=== PATIENT | male | born 1945 | race Caucasian/White ===

== ENCOUNTER → 2018-05-14 | Outpatient (CLI) | payer MEDICARE ==
[~2018-05-14] MED LIST: AML5T; AMLO10TA2 PO; ASP325T; CLN.2T PO; ENAL20TA PO; FRSM40T PO; HYDRALAZINE; IBP200T; INDO50CA PO; MTP100TCR PO; RT-ALBUINH IH
--- NOTE | 2018-05-14 09:44 | Diagnostic Imaging Report ---
INDICATION: Fall, rib pain. FINDINGS: There is no evidence for lung contusion, pneumothorax, or hemothorax. There is symmetrical hyperexpansion of the lungs with features of air trapping as a chronic finding. Multilevel bridging anterior osteophytes or syndesmophytes are chronic. The thoracic and visualized lumbar vertebral statures are stable. The alignment is within normal limits. The hilar and mediastinal contours are unremarkable. There are fractures without convincing evidence for healing involving at least the left sixth and seventh ribs laterally. There is no free air. IMPRESSION: Clear hyperexpanded lungs with underlying chronic COPD. Left-sided rib fractures involve at least the sixth and seventh levels; however, no findings of a hemothorax or pneumothorax and no free air beneath the diaphragms. A dedicated left rib series may be useful as further evaluation. Dictated by: Dictated on workstation # [id number]
--- NOTE | 2018-05-14 09:54 | Diagnostic Imaging Report ---
Indication: Fall and left knee pain. Time of exam: 9:41 AM 3 views of the left knee were obtained. Correlation is made with prior left knee radiographs from 04/07/2007. Since the prior study, the patient has had a revision of the hardware. There are changes of total knee arthroplasty. No definite fracture or loosening is identified. No effusion is identified. There is some prepatellar soft tissue swelling. Impression: Prepatellar soft tissue swelling. No acute fracture is detected. Dictated by: Dictated on workstation # [id number]
--- NOTE | 2018-05-14 10:14 | Diagnostic Imaging Report ---
Indication: Fall. Pain. Comparison: None. Findings: Three views of the left ribs are obtained. There are minimally displaced fractures of the posterior aspect of the left sixth and seventh ribs. There may be a subtle nondisplaced fracture of the posterior left eighth rib. No additional fracture or osseous destructive process is seen. There are degenerative changes in the spine. There is cephalad migration of left humeral head suggesting rotator cuff tear. Impression: 1. Posterior left seventh and eighth rib fractures with possible subtle left ninth rib fracture. 2. Findings suggestive of chronic left rotator cuff tear. Dictated by: Dictated on workstation # [id number]
== END ==
LOC: RAD 08:55
PROVIDERS: ATTEND Nurse Practitioner Family
DX: S22.42XA Multiple fractures of ribs, left side, initial encounter for closed fracture (principal); M79.89 Other specified soft tissue disorders; R06.00 Dyspnea, unspecified; R10.9 Unspecified abdominal pain; W19.XXXA Unspecified fall, initial encounter; Z87.09 Personal history of other diseases of the respiratory system; Z96.652 Presence of left artificial knee joint
CPT/HCPCS: 71046; 71100; 73562

== ENCOUNTER 2019-04-06 13:36 | Outpatient (RCR) | payer BC, MEDICARE ==
[2019-06-13] MEDS ORDERED: PRED10TA22 PO (11:17)
[2019-06-13] MEDS ORDERED: FLUT12AE4 IH (11:17)
[2019-06-13] MEDS ORDERED: HYDR-3820 PO (11:56)
[2019-06-13] MEDS ORDERED: RT-ALBUINH PO (11:56)
== END 2019-07-05 | disposition home or self-care (01) ==
LOC: CARD 13:36
PROVIDERS: ATTEND Internal Medicine Interventional Cardiology
DX: R55 Syncope and collapse (principal); I49.3 Ventricular premature depolarization; R42 Dizziness and giddiness

== ENCOUNTER → 2019-04-06 | Outpatient (CLI) | payer BC, MEDICARE ==
[~2019-04-06] MED LIST changes: -AMLO10TA2 PO; +AMLO10TA7 PO; -INDO50CA PO; +INDO50CA11 PO
== END ==
LOC: CARD 13:30
PROVIDERS: ATTEND Internal Medicine Interventional Cardiology
DX: R55 Syncope and collapse (principal); I49.3 Ventricular premature depolarization; R42 Dizziness and giddiness
CPT/HCPCS: 93306

== ENCOUNTER 2019-06-12 05:47 | Inpatient (IN) | payer MEDICARE ==
[~2019-06-12] VITALS: Ht 175.3 cm; Wt 96.6 kg
[2019-06-12] VITALS (7 sets, daily range): BP systolic 123–178; BP diastolic 70–101
[2019-06-12] MEDS ORDERED: NS IV 1000 ML 1,000 ML IV SCH ×2 (05:58→09:15)
[2019-06-12] MEDS ORDERED: CEFEPIME INJECTION 1,000 MG in WATER (STERILE) FOR INJECTION 10 ML IV ONE (06:00)
[2019-06-12] MEDS ORDERED: RT-ALBUTEROL SULF 2.5 MG/3 ML PRE-MIX VIAL INH STA (06:03)
[2019-06-12 06:08] LABS: BILIRUBIN,URINE NEGATIVE (NEGATIVE); CLARITY,URINE CLEAR; COLOR,URINE YELLOW; GLUCOSE, URINE (UA) NEGATIVE (NEGATIVE); KETONES,URINE 1+ (NEGATIVE); LEUKOCYTE ESTERASE ,URINE NEGATIVE (NEGATIVE); NITRITE,URINE NEGATIVE (NEGATIVE); PH,URINE 6.5 (5-9); PROTEIN,URINE 3+ (NEGATIVE); UROBILINOGEN,URINE NORMAL (NORMAL)
[2019-06-12 06:15] LABS: BACTERIA,URINE TRACE /HPF; SQUAMOUS EPITHELIAL CELL,UR 0-2 /HPF
[2019-06-12] MEDS ORDERED: methylPREDNISolone 125 MG (Solu-MEDROL) VIAL IVP ONE (06:15)
[2019-06-12] MEDS ORDERED: RT-IPRATROPIUM (ATROVENT) 0.5MG/2.5ML AMP IH ONE (06:15)
[2019-06-12 06:20] LABS: BASOPHILS # (AUTO) 0.1 10^3/uL (0.0-0.1); BASOPHILS % (AUTO) 0 % (0-10); EOSINOPHILS # (AUTO) 0.2 10^3/uL (0.0-0.3); EOSINOPHILS % (AUTO) 1 % (0-10); HEMATOCRIT 46 % (40-54); HEMOGLOBIN 15.1 G/DL (13.3-17.7); LYMPHOCYTES # (AUTO) 1.2 X 10^3 (1.0-4.0); LYMPHOCYTES % (AUTO) 10 % (12-44); MEAN CORPUSCULAR HEMOGLOBIN 33 PG (25-34); MEAN CORPUSCULAR HGB CONC 33 G/DL (32-36); MEAN CORPUSCULAR VOLUME 99 FL (80-99); MEAN PLATELET VOLUME 11.5 FL (7.4-10.4); MONOCYTES # (AUTO) 0.8 X 10^3 (0.0-1.0); MONOCYTES % (AUTO) 7 % (0-12); NEUTROPHILS # (AUTO) 10.2 X 10^3 (1.8-7.8); NEUTROPHILS % (AUTO) 82 % (42-75); PLATELET COUNT 218 10^3/uL (130-400); RED CELL DISTRIBUTION WIDTH 13.4 % (10.0-14.5); WHITE BLOOD COUNT 12.4 10^3/uL (4.3-11.0)
[2019-06-12 06:21] LABS: ABG BASE EXCESS -1.5 MMOL/L (-2.5-2.5); ABG OXYGEN SATURATION 97 % (94-100); ABG PCO2 36 MMHG (35-45); ABG PH 7.41 (7.37-7.43); ABG PO2 87 MMHG (79-93); ABG TCO2 23.4 MMOL/L (21.0-31.0)
[2019-06-12 06:23] LABS: ALLENS TEST YES-POS; INSPIRED O2 40%; VENTILATOR NO
[2019-06-12 06:24] LABS: PATIENT TEMP 99.3
[2019-06-12 06:34] LABS: PROTHROMBIN TIME PATIENT 13.6 SEC (12.2-14.7)
[2019-06-12 06:38] LABS: ALANINE AMINOTRANSFERASE 19 U/L (0-55); ALBUMIN 4.4 GM/DL (3.2-4.5); ALKALINE PHOSPHATASE 71 U/L (40-136); BILIRUBIN,TOTAL 0.6 MG/DL (0.1-1.0); BUN/CREATININE RATIO 14; CALCIUM 9.3 MG/DL (8.5-10.1); CARBON DIOXIDE 20 MMOL/L (21-32); CHLORIDE 105 MMOL/L (98-107); CREATININE SERUM 0.86 MG/DL (0.60-1.30); GFR ESTIMATED > 60; GLUCOSE 105 MG/DL (70-105); POTASSIUM 3.8 MMOL/L (3.6-5.0); SODIUM 140 MMOL/L (135-145); TOTAL PROTEIN 7.2 GM/DL (6.4-8.2)
--- OUTSIDE RECORDS SUMMARY | 2019-06-12 06:49 | XMS REPORT | Continuity of Care Document ---
Author Organization Unknown Address Unknown Allergies Active Description Code Type Severity Reaction Onset Reported/Identified Relationship to Patient Clinical Status Yes Sulfa (Sulfonamide Antibiotics) [id number] Drug Allergy Unknown N/A 07/11/2016 Medications There is no data. Problems Date Dx Coded Attending Type Code Diagnosis Diagnosed By 01/15/2012 Ot V43.65 01/15/2012 Ot V54.81 01/15/2012 Ot V57.1 08/24/2015 Ot 401.9 08/24/2015 Ot 496 08/24/2015 Ot 786.05 08/24/2015 Ot V58.61 08/24/2015 Ot V58.83 08/24/2015 Ot V43.65 08/24/2015 Ot V58.61 08/24/2015 Ot V58.83 08/24/2015 Ot V45.89 08/24/2015 Ot V58.61 08/24/2015 Ot V58.83 08/24/2015 Ot V43.65 08/24/2015 Ot V58.61 08/24/2015 Ot V58.83 09/17/2015 OSCAR KELLER [employer] Ot 278.00 09/17/2015 OSCAR KELLER [employer] Ot 401.9 09/17/2015 TRACY KELLERINE E [employer]PER Ot 496 09/17/2015 TRACY KELLERINE E [employer] Ot 780.54 09/17/2015 OSCAR KELLER E [employer] Ot 786.09 09/24/2015 TRACY KELLERINE E [employer] Ot 278.00 09/24/2015 OSCAR KELLER [employer] Ot 401.9 09/24/2015 OSCAR KELLER [employer] Ot 496 09/24/2015 OSCAR KELLER [employer] Ot 780.54 09/24/2015 OSCAR KELLER E [employer] Ot 786.09 10/31/2015 OSCAR KELLER [employer] Ot G47.10 HYPERSOMNIA, UNSPECIFIED 10/31/2015 OSCAR KELLER [employer] Ot I10 ESSENTIAL (PRIMARY) HYPERTENSION 10/31/2015 OSCAR KELLER [employer] Ot J44.9 CHRONIC OBSTRUCTIVE PULMONARY DISEASE, U 10/31/2015 OSCAR KELLER [employer] Ot R06.83 SNORING 07/09/2016 RUSTAM COSME DO Ot Z01.818 ENCOUNTER FOR OTHER PREPROCEDURAL EXAMIN 07/09/2016 COSMERUSTAM SANTANA DO Ot Z12.11 ENCOUNTER FOR SCREENING FOR MALIGNANT NE 07/10/2016 COSME DO RUSTAM D Ot Z01.818 ENCOUNTER FOR OTHER PREPROCEDURAL EXAMIN 07/10/2016 COSME DO RUSTAM D Ot Z12.11 ENCOUNTER FOR SCREENING FOR MALIGNANT NE 07/11/2016 RUSTAM COSME DO Ot K63.5 POLYP OF COLON 07/11/2016 COSME VAL SHINETT Ruth Ot Z12.11 ENCOUNTER FOR SCREENING FOR MALIGNANT NE 07/15/2016 COSME RUSTAM SHINE Ot Z01.818 ENCOUNTER FOR OTHER PREPROCEDURAL EXAMIN 07/15/2016 COSME VAL SHINETT Ruth Ot Z12.11 ENCOUNTER FOR SCREENING FOR MALIGNANT NE 07/16/2016 COSME VAL SHINETT Ruth Ot K63.5 POLYP OF COLON 07/16/2016 COSME VAL SHNIETT Ruth Ot Z12.11 ENCOUNTER FOR SCREENING FOR MALIGNANT NE 07/19/2016 COSME VAL SHINETT Ruth Ot K63.5 POLYP OF COLON 07/19/2016 COSME DO RUSTAM D Ot Z12.11 ENCOUNTER FOR SCREENING FOR MALIGNANT NE 05/14/2018 OSCAR KELLER [employer] Ot 278.00 OBESITY, NOS 05/14/2018 OSCAR KELLER [employer] Ot 401.9 HYPERTENSION NOS 05/14/2018 OSCAR KELLER [employer] Ot 496 CHR AIRWAY OBSTRUCT NEC 05/14/2018 OSCAR KELLER [employer] Ot 780.54 HYPERSOMNIA, UNSPECIFIED 05/14/2018 OSCAR KELLER [employer] Ot 786.09 RESPIRATORY ABNORM NEC 05/17/2018 JORI, BOBBY L W[employer]PER Ot M79.89 OTHER SPECIFIED SOFT TISSUE DISORDERS 05/17/2018 JORI, BOBBY L [employer] Ot R06.00 DYSPNEA, UNSPECIFIED 05/17/2018 JORI, BOBBY L [employer] Ot S22.42XA MULTIPLE FRACTURES OF RIBS, LEFT SIDE, I 05/17/2018 JORI, BOBBY L [employer] Ot W19.XXXA UNSPECIFIED FALL, INITIAL ENCOUNTER 05/17/2018 JORI, BOBBY L [employer] Ot Z87.09 PERSONAL HISTORY OF OTHER DISEASES OF TH 05/17/2018 JORI, BOBBY L [employer] Ot 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 LEFT ARTIFICIAL KNEE JOINT 05/17/2018 JORI, BOBBY L [employer] Ot M79.89 OTHER SPECIFIED SOFT TISSUE DISORDERS 05/17/2018 JORI, BOBBY L [employer] Ot R06.00 DYSPNEA, UNSPECIFIED 05/17/2018 JORI, BOBBY L [employer]PER Ot R10.9 UNSPECIFIED ABDOMINAL PAIN 05/17/2018 JORI, BOBBY L [employer] Ot S22.42XA MULTIPLE FRACTURES OF RIBS, LEFT SIDE, I 05/17/2018 JORI, BOBBY L [employer] Ot W19.XXXA UNSPECIFIED FALL, INITIAL ENCOUNTER 05/17/2018 JORI, BOBBY L [employer]PER Ot Z87.09 PERSONAL HISTORY OF OTHER DISEASES OF TH 05/17/2018 JORI, BOBBY L [employer] Ot 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 LEFT ARTIFICIAL KNEE JOINT 06/07/2018 JORI, BOBBY L [employer]PER Ot M79.89 OTHER SPECIFIED SOFT TISSUE DISORDERS 06/07/2018 JORI, BOBBY L [employer]PER Ot R06.00 DYSPNEA, UNSPECIFIED 06/07/2018 JORI, BOBBY L W[employer] AND [employer]PER Ot R10.9 UNSPECIFIED ABDOMINAL PAIN 06/07/2018 JORI, BOBBY L W[employer]E AND [employer]PER Ot S22.42XA MULTIPLE FRACTURES OF RIBS, LEFT SIDE, I 06/07/2018 JORI, BOBBY L [employer]PER Ot W19.XXXA UNSPECIFIED FALL, INITIAL ENCOUNTER 06/07/2018 JORI, BOBBY L W[employer]PER Ot Z87.09 PERSONAL HISTORY OF OTHER DISEASES OF TH 06/07/2018 JORI, BOBBY L W[employer] AND [employer]PER Ot 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 LEFT ARTIFICIAL KNEE JOINT 03/30/2019 OSCAR KELLER W[employer] Ot 278.00 OBESITY, NOS 03/30/2019 OSCAR KELLER [employer] Ot 401.9 HYPERTENSION NOS 03/30/2019 OSCAR KELLER [employer] Ot 496 CHR AIRWAY OBSTRUCT NEC 03/30/2019 OSCAR KELLER [employer] Ot 780.54 HYPERSOMNIA, UNSPECIFIED 03/30/2019 OSCAR KELLER [employer] Ot 786.09 RESPIRATORY ABNORM NEC 03/30/2019 JORI, BOBBY L [employer] Ot M79.89 OTHER SPECIFIED SOFT TISSUE DISORDERS 03/30/2019 JORI, BOBBY L [employer] Ot R06.00 DYSPNEA, UNSPECIFIED 03/30/2019 JORI, BOBBY L [employer] Ot R10.9 UNSPECIFIED ABDOMINAL PAIN 03/30/2019 JORI, BOBBY L [employer]PER Ot S22.42XA MULTIPLE FRACTURES OF RIBS, LEFT SIDE, I 03/30/2019 JORI, BOBBY L [employer] Ot W19.XXXA UNSPECIFIED FALL, INITIAL ENCOUNTER 03/30/2019 JORI, BOBBY L [employer]PER Ot Z87.09 PERSONAL HISTORY OF OTHER DISEASES OF TH 03/30/2019 JORI, BOBBY L W[employer]PER Ot 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 LEFT ARTIFICIAL KNEE JOINT 03/30/2019 OSCAR KELLER [employer] Ot 278.00 OBESITY, NOS 03/30/2019 OSCAR KELLER [employer] Ot 401.9 HYPERTENSION NOS 03/30/2019 OSCAR KELLER [employer] Ot 496 CHR AIRWAY OBSTRUCT NEC 03/30/2019 OSCAR KELLER [employer] Ot 780.54 HYPERSOMNIA, UNSPECIFIED 03/30/2019 OSCAR KELLER [employer] Ot 786.09 RESPIRATORY ABNORM NEC 03/30/2019 JORI, BOBBY L [employer] Ot M79.89 OTHER SPECIFIED SOFT TISSUE DISORDERS 03/30/2019 JORI, BOBBY L W[employer] Ot R06.00 DYSPNEA, UNSPECIFIED 03/30/2019 JORI, BOBBY L [employer]PER Ot R10.9 UNSPECIFIED ABDOMINAL PAIN 03/30/2019 JORI, BOBBY L [employer] Ot S22.42XA MULTIPLE FRACTURES OF RIBS, LEFT SIDE, I 03/30/2019 JORI, BOBBY L [employer] Ot W19.XXXA UNSPECIFIED FALL, INITIAL ENCOUNTER 03/30/2019 JORI, BOBBY L [employer] Ot Z87.09 PERSONAL HISTORY OF OTHER DISEASES OF TH 03/30/2019 JORI, BOBBY L W[employer] AND [employer]PER Ot 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 LEFT ARTIFICIAL KNEE JOINT 03/30/2019 TRACY KELLERINE E [employer]PER Ot 278.00 OBESITY, NOS 03/30/2019 OSCAR KELLER [employer] Ot 401.9 HYPERTENSION NOS 03/30/2019 TRACY KELLERINE E [employer]PER Ot 496 CHR AIRWAY OBSTRUCT NEC 03/30/2019 OSCAR KELLER [employer] Ot 780.54 HYPERSOMNIA, UNSPECIFIED 03/30/2019 TRACY KELLERINE Leno WASTE [employer]PER Ot 786.09 RESPIRATORY ABNORM NEC 03/30/2019 JORI, BOBBY L [employer] Ot M79.89 OTHER SPECIFIED SOFT TISSUE DISORDERS 03/30/2019 JORI, BOBBY L W[employer] Ot R06.00 DYSPNEA, UNSPECIFIED 03/30/2019 JORI, BOBBY L [employer]PER Ot R10.9 UNSPECIFIED ABDOMINAL PAIN 03/30/2019 JORI, BOBBY L [employer] Ot S22.42XA MULTIPLE FRACTURES OF RIBS, LEFT SIDE, I 03/30/2019 JORI, BOBBY L [employer]PER Ot W19.XXXA UNSPECIFIED FALL, INITIAL ENCOUNTER 03/30/2019 JORI, BOBBY L [employer] Ot Z87.09 PERSONAL HISTORY OF OTHER DISEASES OF 03/30/2019 JORI, BOBBY L W[employer] AND [employer] CH[employer]PER Ot 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 LEFT ARTIFICIAL KNEE JOINT 03/30/2019 OSCAR KELELR WASTE AND B[employer]ING W[employer] CHOPPER Ot 278.00 OBESITY, NOS 03/30/2019 OSCAR KELLER [employer] Ot 401.9 HYPERTENSION NOS 03/30/2019 OSCAR KELLER [employer] Ot 496 CHR AIRWAY OBSTRUCT NEC 03/30/2019 OSCAR KELLER W[employer] Ot 780.54 HYPERSOMNIA, UNSPECIFIED 03/30/2019 OSCAR KELLER [employer] Ot 786.09 RESPIRATORY ABNORM NEC 03/30/2019 JROI, BOBBY L W[employer]PER Ot M79.89 OTHER SPECIFIED SOFT TISSUE DISORDERS 03/30/2019 JORI, BOBBY L [employer]PER Ot R06.00 DYSPNEA, UNSPECIFIED 03/30/2019 JORI, BOBBY L [employer]PER Ot R10.9 UNSPECIFIED ABDOMINAL PAIN 03/30/2019 JORI, BOBBY L W[employer]PER Ot S22.42XA MULTIPLE FRACTURES OF RIBS, LEFT SIDE, I 03/30/2019 JORI, BOBBY L [employer]PER Ot W19.XXXA UNSPECIFIED FALL, INITIAL ENCOUNTER 03/30/2019 JORI, BOBBY L W[employer]PER Ot Z87.09 PERSONAL HISTORY OF OTHER DISEASES OF 03/30/2019 JORI, BOBBY L WASTE AND [employer] CH[employer]PER Ot 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 LEFT ARTIFICIAL KNEE JOINT 04/06/2019 OSCAR KELLER E [employer] Ot 278.00 OBESITY, NOS 04/06/2019 TRACY KELLERINE E [employer]PER Ot 401.9 HYPERTENSION NOS 04/06/2019 TRACY KELLERINE E [employer]PER Ot 496 CHR AIRWAY OBSTRUCT NEC 04/06/2019 TRACY KELLERINE E [employer]PER Ot 780.54 HYPERSOMNIA, UNSPECIFIED 04/06/2019 TRACY KELLERINE E [employer]PER Ot 786.09 RESPIRATORY ABNORM NEC 04/06/2019 JORI, BOBBY L W[employer]PER Ot M79.89 OTHER SPECIFIED SOFT TISSUE DISORDERS 04/06/2019 JORI, BOBBY L W[employer]PER Ot R06.00 DYSPNEA, UNSPECIFIED 04/06/2019 JORI, BOBBY L W[employer]PER Ot R10.9 UNSPECIFIED ABDOMINAL PAIN 04/06/2019 JORI, BOBBY L W[employer]PER Ot S22.42XA MULTIPLE FRACTURES OF RIBS, LEFT SIDE, I 04/06/2019 JORI, BOBBY L W[employer]PER Ot W19.XXXA UNSPECIFIED FALL, INITIAL ENCOUNTER 04/06/2019 JORI, BOBBY L W[employer]PER Ot Z87.09 PERSONAL HISTORY OF OTHER DISEASES OF 04/06/2019 JORI, BOBBY L WASTE AND [employer] CH[employer]PER Ot 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 LEFT ARTIFICIAL KNEE JOINT 04/06/2019 TRACY KELLERINE E [employer]PER Ot 278.00 OBESITY, NOS 04/06/2019 TRACY KELLERINE E [employer]PER Ot 401.9 HYPERTENSION NOS 04/06/2019 TRACY KELLERINE E [employer]PER Ot 496 CHR AIRWAY OBSTRUCT NEC 04/06/2019 TRACY KELLERINE E [employer]PER Ot 780.54 HYPERSOMNIA, UNSPECIFIED 04/06/2019 TRACY KELLERINE E [employer]PER Ot 786.09 RESPIRATORY ABNORM NEC 04/06/2019 JORI, BOBBY L W[employer]PER Ot M79.89 OTHER SPECIFIED SOFT TISSUE DISORDERS 04/06/2019 JORI, BOBBY L W[employer]PER Ot R06.00 DYSPNEA, UNSPECIFIED 04/06/2019 JORI, BOBBY L [employer]PER Ot R10.9 UNSPECIFIED ABDOMINAL PAIN 04/06/2019 JORI, BOBBY L [employer]PER Ot S22.42XA MULTIPLE FRACTURES OF RIBS, LEFT SIDE, I 04/06/2019 BOBBY HSIEH APRN Ot W19.XXXA UNSPECIFIED FALL, INITIAL ENCOUNTER 04/06/2019 BOBBY HSIEH APRN Ot Z87.09 PERSONAL HISTORY OF OTHER DISEASES OF TH 04/06/2019 BOBBY HSIEH APRN Ot 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 LEFT ARTIFICIAL KNEE JOINT 04/08/2019 Marta HERNANDEZ MD, Ot I49.3 VENTRICULAR PREMATURE DEPOLARIZATION 04/08/2019 Marta HERNANDEZ MD, Ot R42 DIZZINESS AND GIDDINESS 04/08/2019 Marta HERNANDEZ MD, Ot R55 SYNCOPE AND COLLAPSE 04/28/2019 Marta HERNANDEZ MD, Ot I49.3 VENTRICULAR PREMATURE DEPOLARIZATION 04/28/2019 Marta HERNANDEZ MD, Ot R42 DIZZINESS AND GIDDINESS 04/28/2019 Marta HERNANDEZ MD, Ot R55 SYNCOPE AND COLLAPSE Procedures There is no data. Results Test Result Range Complete urinalysis with reflex to culture - 06/12/19 06:00 Urine color determination YELLOW NRG Urine clarity determination CLEAR NRG Urine pH measurement by test strip 6.5 5-9 Specific gravity of urine by test strip 1.015 1.016-1.022 Urine protein assay by test strip, semi-quantitative 3+ NEGATIVE Urine glucose detection by automated test strip NEGATIVE NEGATIVE Erythrocytes detection in urine sediment by light microscopy 1+ NEGATIVE Urine ketones detection by automated test strip 1+ NEGATIVE Urine nitrite detection by test strip NEGATIVE NEGATIVE Urine total bilirubin detection by test strip NEGATIVE NEGATIVE Urine urobilinogen measurement by automated test strip (mass/volume) NORMAL NORMAL Urine leukocyte esterase detection by dipstick NEGATIVE NEGATIVE Automated urine sediment erythrocyte count by microscopy (number/high power field) NONE NRG Automated urine sediment leukocyte count by microscopy (number/high power field) NONE NRG Bacteria detection in urine sediment by light microscopy TRACE NRG Squamous epithelial cells detection in urine sediment by light microscopy 0-2 NRG Crystals detection in urine sediment by light microscopy NONE NRG Casts detection in urine sediment by light microscopy NONE NRG Mucus detection in urine sediment by light microscopy SMALL NRG Complete urinalysis with reflex to culture CULTURE PENDING NRG Complete blood count (CBC) with automated white blood cell (WBC) differential - 06/12/19 06:04 Blood leukocytes automated count (number/volume) 12.4 10*3/uL 4.3-11.0 Blood erythrocytes automated count (number/volume) 4.62 10*6/uL 4.35-5.85 Venous blood hemoglobin measurement (mass/volume) 15.1 g/dL 13.3-17.7 Blood hematocrit (volume fraction) 46 % 40-54 Automated erythrocyte mean corpuscular volume 99 [foz_us] 80-99 Automated erythrocyte mean corpuscular hemoglobin (mass per erythrocyte) 33 pg 25-34 Automated erythrocyte mean corpuscular hemoglobin concentration measurement (mass/volume) 33 g/dL 32-36 Automated erythrocyte distribution width ratio 13.4 % 10.0- 14.5 Automated blood platelet count (count/volume) 218 10*3/uL 130-400 Automated blood platelet mean volume measurement 11.5 [foz_us] 7.4-10.4 Automated blood neutrophils/100 leukocytes 82 % 42-75 Automated blood lymphocytes/100 leukocytes 10 % 12-44 Blood monocytes/100 leukocytes 7 % 0-12 Automated blood eosinophils/100 leukocytes 1 % 0-10 Automated blood basophils/100 leukocytes 0 % 0-10 Blood neutrophils automated count (number/volume) 10.2 10*3 1.8-7.8 Blood lymphocytes automated count (number/volume) 1.2 10*3 1.0-4.0 Blood monocytes automated count (number/volume) 0.8 10*3 0.0- 1.0 Automated eosinophil count 0.2 10*3/uL 0.0-0.3 Automated blood basophil count (count/volume) 0.1 10*3/uL 0.0-0.1 Arterial blood gas measurement - 06/12/19 06:08 Blood pCO2 36 mm[Hg] 35-45 Blood pO2 87 mm[Hg] 79-93 Arterial blood bicarbonate measurement (moles/volume) 22 mmol/L 23-27 Arterial blood base excess by calculation -1.5 mmol/L -2.5-2.5 Arterial blood oxygen saturation measurement 97 % 94-100 * Inhaled oxygen flow rate 40% NRG Arterial blood pH measurement with patient temperature correction 7.41 7.37-7.43 Arterial blood carbon dioxide, total measurement (moles/volume) 23.4 mmol/L 21.0-31.0 Body site LEFT RADIAL NRG Assessment of wrist artery patency prior to arterial puncture YES-POS NRG Setting of ventilation mode NO NRG Measurement of body temperature 99.3 NRG Encounters ACCT No. Visit Date/Time Discharge Status Pt. Type Provider Facility Loc./Unit Complaint [id number] 04/06/2019 13:36:00 04/06/2019 23:59:59 CLS Outpatient Marta HERNANDEZ MD [facility] CARD DIZZINESS [id number] 04/06/2019 13:30:00 04/06/2019 23:59:59 CLS Outpatient Marta HERNANDEZ MD [facility] CARD DIZZINESS [id number] 03/30/2019 10:34:00 03/30/2019 23:59:59 CLS Preadmit Marta HERNANDEZ MD [facility] CARD DIZZINESS,NEAR SYNCOPE [id number] 05/14/2018 08:55:00 05/14/2018 23:59:59 CLS Outpatient BOBBY HSIEH [employer] [facility] RAD R06.00 [id number] 07/11/2016 09:21:00 07/11/2016 13:40:00 DIS Outpatient RSUTAM COSME DO [facility] SDC SCREENING [id number] 07/09/2016 05:44:00 07/09/2016 11:21:00 DIS Outpatient RUSTAM COSME DO [facility] PREOP SCREENING [id number] 10/31/2015 11:16:00 10/31/2015 11:37:00 DIS Outpatient OSCAR KELLER APRN [facility] SLEEP SNORING, CHOKING IN SLEEP, EDS, HPN [id number] 08/24/2015 12:48:00 08/24/2015 23:59:59 CLS Outpatient OSCAR KELLER APRN [facility] RT COPD [id number] 06/12/2019 06:16:00 Document Registration [id number] 08/24/2015 12:47:00 Document Registration [id number] 08/24/2015 12:47:00 Document Registration [id number] 08/24/2015 12:47:00 Document Registration [id number] 10/30/2011 12:45:00 Document Registration [id number] 10/27/2011 13:30:00 Document Registration [id number] 05/15/2011 12:43:00 Document Registration [id number] 04/17/2011 15:28:00 Document Registration
--- NOTE | 2019-06-12 06:59 | NUR ---
REPORT GIVEN TO MICHELLE LOPEZ
[2019-06-12] MEDS ORDERED: FUROSEMIDE 40 MG/4 ML INJ (LASIX) IVP ONE (07:30)
--- NOTE | 2019-06-12 07:36 | ED Respiratory ---
General Chief Complaint: Respiratory Problems Stated Complaint: COPD EXACERBATION Nursing Triage Note: PT ARRIVES VIA EMS, STATES HE WAS AWOKEN FROM SLEEP BY WHAT HE FEELS LIKE IS AN EXACERBATION OF HIS COPD, SIMILAR TO EPISODES IN THE PAST. Source: patient Exam Limitations: no limitations History of Present Illness Date Seen by Provider: Jun 12, 2019 Time Seen by Provider: 07:31 Initial Comments This 73-year-old white male presents with exacerbation of COPD. The patient has had similar episodes in the past. The patient awoke from sleep with severe shortness of breath. Patient denies associated fever, chills, productive cough, chest pain, palpitations, nausea, vomiting, abdominal pain, significant change in his peripheral edema, or change in his medication. Upon arrival patient was found in respiratory failure and was placed on BiPAP with improvement in his breathing. The patient was given 125 mg I'm and will IV. I assumed care of Mr. Sims from Dr. Swift when I arrived for my shift this morning at 6 a.m. Allergies and Home Medications Allergies Coded Allergies: Sulfa (Sulfonamide Antibiotics) (Verified Allergy, Unknown, 06/12/19) Home Medications Albuterol Sulfate 8.5 Gm Hfa.aer.ad, 1-2 PUFF IH Q4H PRN for WHEEZING, (Reported) Amlodipine Besylate 10 Mg Tablet, 10 MG PO DAILY, (Reported) Clonidine Hcl 0.2 Mg Tablet, 0.2 MG PO Q8H, (Reported) Enalapril Maleate 20 Mg Tablet, 20 MG PO DAILY, (Reported) Furosemide 40 Mg Tablet, 40 MG PO DAILY, (Reported) Indomethacin 50 Mg Capsule, 50 MG PO DAILY PRN for PAIN, (Reported) Metoprolol Succinate 100 Mg Tab.sr.24h, 100 MG PO BID, (Reported) Patient Home Medication List Home Medication List Reviewed: Yes Review of Systems Review of Systems Constitutional: No chills, No fever EENTM: no symptoms reported Respiratory: see HPI, cough, dyspnea on exertion, short of breath Cardiovascular: chest pain Gastrointestinal: No abdominal pain, No nausea, No vomiting Genitourinary: no symptoms reported Musculoskeletal: no symptoms reported Skin: no symptoms reported Psychiatric/Neurological: No Symptoms Reported Hematologic/Lymphatic: No Symptoms Reported Immunological/Allergic: no symptoms reported Past Doxtyns-Bhzhti-Yczfoi Hx Past Med/Social Hx: Reviewed Nursing Past Med/Soc Hx Patient Social History Alcohol Use: Denies Use Recreational Drug Use: No Smoking Status: Former Smoker Type Used: Cigarettes Former Smoker, Quit: Jun 01, 2013 Recent Foreign Travel: No Contact w/Someone Who Travel: No Recent Infectious Disease Expo: No Recent Hopitalizations: Yes (OVER 10 YRS.AGO-PNEUMONIA) Immunizations Up To Date Tetanus Booster (TDap): Unknown PED Vaccines UTD: Yes Date of Pneumonia Vaccine: Sep 14, 2014 Past Medical History Surgeries: Yes (left knee replaced x2, right TKR, shoulder sx) Respiratory: Yes (COPD) Cardiac: No Neurological: No Reproductive Disorders: No Gastrointestinal: No Musculoskeletal: Yes Endocrine: No Psychosocial: No Blood Disorders: No Physical Exam Vital Signs - First Documented 06/12/19 05:47 Temp 99.3 Pulse 90 Resp 34 B/P (MAP) 177/101 (126) Pulse Ox 96 O2 Delivery NIV CPAP O2 Flow Rate 10.00 Capillary Refill : Greater Than 3 Seconds Height: 5'9.00" Weight: 228lbs. 0.0oz. 103.888885qy; 34.4 BMI Method:Stated General Appearance: WD/WN, moderate distress (on presentation the emergency de partment. BiPAP was initiated for the patient.) Eyes: Bilateral Eye Normal Inspection HEENT: normal ENT inspection Neck: full range of motion, supple Respiratory: decreased breath sounds Cardiovascular: normal peripheral pulses, regular rate, rhythm, no murmur Gastrointestinal: normal bowel sounds, non tender, soft Extremities: normal range of motion, non-tender, normal inspection Neurologic/Psychiatric: no motor/sensory deficits, alert Skin: normal color Focused Exam Lactate Level 06/12/19 06:04: Lactic Acid Level 1.88 Lactic Acid Level Laboratory Tests Test 06/12/19 06:04 Lactic Acid Level 1.88 MMOL/L (0.50-2.00) Progress/Results/Core Measures Suspected Sepsis Recent Fever Within 48 Hours: No Infection Criteria Present: Suspected New Infection New/Unexplained Altered Menta: No Sepsis Screen: No Definite Risk SIRS Temperature:99.3 Pulse: 66 Respiratory Rate: 15 Laboratory Tests 06/12/19 06:04: White Blood Count 12.4H Blood Pressure 157 /89 Mean: 126 06/12/19 06:04: Lactic Acid Level 1.88 Laboratory Tests 06/12/19 06:04: Creatinine 0.86, INR Comment 1.0, Platelet Count 218, Total Bilirubin 0.6 Results/Orders Lab Results Laboratory Tests Test 06/12/19 06:00 06/12/19 06:04 06/12/19 06:08 Range/Units Urine Color YELLOW Urine Clarity CLEAR Urine pH 6.5 5-9 Urine Specific [place] 1.015 L 1.016-1.022 Urine Protein 3+ H NEGATIVE Urine Glucose (UA) NEGATIVE NEGATIVE Urine Ketones 1+ H NEGATIVE Urine Nitrite NEGATIVE NEGATIVE Urine Bilirubin NEGATIVE NEGATIVE Urine Urobilinogen NORMAL NORMAL MG/DL Urine Leukocyte Esterase NEGATIVE NEGATIVE Urine RBC (Auto) 1+ H NEGATIVE Urine RBC NONE /HPF Urine WBC NONE /HPF Urine Squamous Epithelial Cells 0-2 /HPF Urine Crystals NONE /LPF Urine Bacteria TRACE /HPF Urine Casts NONE /LPF Urine Mucus SMALL H /LPF Urine Culture Indicated CULTURE PENDING White Blood Count 12.4 H 4.3-11.0 10^3/uL Red Blood Count 4.62 4.35-5.85 10^6/uL Hemoglobin 15.1 13.3-17.7 G/DL Hematocrit 46 40-54 % Mean Corpuscular Volume 99 80-99 FL Mean Corpuscular Hemoglobin 33 25-34 PG Mean Corpuscular Hemoglobin Concent 33 32-36 G/DL Red Cell Distribution Width 13.4 10.0-14.5 % Platelet Count 218 130-400 10^3/uL Mean Platelet Volume 11.5 H 7.4-10.4 FL Neutrophils (%) (Auto) 82 H 42-75 % Lymphocytes (%) (Auto) 10 L 12-44 % Monocytes (%) (Auto) 7 0-12 % Eosinophils (%) (Auto) 1 0-10 % Basophils (%) (Auto) 0 0-10 % Neutrophils # (Auto) 10.2 H 1.8-7.8 X 10^3 Lymphocytes # (Auto) 1.2 1.0-4.0 X 10^3 Monocytes # (Auto) 0.8 0.0-1.0 X 10^3 Eosinophils # (Auto) 0.2 0.0-0.3 10^3/uL Basophils # (Auto) 0.1 0.0-0.1 10^3/uL Prothrombin Time 13.6 12.2-14.7 SEC INR Comment 1.0 0.8-1.4 Activated Partial Thromboplast Time 29 24-35 SEC Sodium Level 140 135-145 MMOL/L Potassium Level 3.8 3.6-5.0 MMOL/L Chloride Level 105 98-107 MMOL/L Carbon Dioxide Level 20 L 21-32 MMOL/L Anion Gap 15 H 5-14 MMOL/L Blood Urea Nitrogen 12 7-18 MG/DL Creatinine 0.86 0.60-1.30 MG/DL Estimat Glomerular Filtration Rate > 60 BUN/Creatinine Ratio 14 Glucose Level 105 70-105 MG/DL Lactic Acid Level 1.88 0.50-2.00 MMOL/L Calcium Level 9.3 8.5-10.1 MG/DL Corrected Calcium 9.0 8.5-10.1 MG/DL Total Bilirubin 0.6 0.1-1.0 MG/DL Aspartate Amino Transf (AST/SGOT) 19 5-34 U/L Alanine Aminotransferase (ALT/SGPT) 19 0-55 U/L Alkaline Phosphatase 71 40-136 U/L Troponin I < 0.028 <0.028 NG/ML Total Protein 7.2 6.4-8.2 GM/DL Albumin 4.4 3.2-4.5 GM/DL Blood Gas Puncture Site LEFT RADIAL Blood Gas Patient Temperature 99.3 Arterial Blood pH 7.41 7.37-7.43 Arterial Blood Partial Pressure CO2 36 35-45 MMHG Arterial Blood Partial Pressure O2 87 79-93 MMHG Arterial Blood HCO3 22 L 23-27 MMOL/L Arterial Blood Total CO2 23.4 21.0-31.0 MMOL/L Arterial Blood Oxygen Saturation 97 94-100 % Arterial Blood Base Excess -1.5 -2.5-2.5 MMOL/L Sanju Test YES-POS Blood Gas Ventilator Setting NO Blood Gas Inspired Oxygen 40% My Orders Orders - JAMIE MAHMOOD MD Furosemide Injection (Lasix Injection) (06/12/19 07:30) Medications Given in ED Current Medications Medications Dose Ordered Sig/Christi Route Start Time Stop Time Status Last Admin Dose Admin Cefepime HCl 1000 mg/Sterile Water 10 ml @ 200 mls/hr ONCE ONCE IV 06/12/19 06:00 06/12/19 06:02 DC 06/12/19 06:49 200 MLS/HR Ipratropium [place] 0.5 mg ONCE ONCE IH 06/12/19 06:15 06/12/19 06:16 DC 06/12/19 06:15 0.5 MG Methylprednisolone Sodium Succinate 125 mg ONCE ONCE IVP 06/12/19 06:15 06/12/19 06:16 DC 06/12/19 06:51 125 MG Vital Signs/I&O 06/12/19 06/12/19 06/12/19 05:47 05:47 06:16 Temp 99.3 Pulse 90 66 Resp 34 15 B/P (MAP) 177/101 (126) Pulse Ox 96 94 98 O2 Delivery NIV CPAP NIV/CPAP O2 Flow Rate 10.00 10.00 40.00 Capillary Refill : Greater Than 3 Seconds Blood Pressure Mean: 126 Progress Note : Time: 07:35 Progress Note With the Solu-Medrol and BiPAP the patient progressively improved in the emergency department. Patient's chest x-ray demonstrated apparent vascular redistribution and I gave the patient 40 mg Lasix IV. Telephone consultation was undertaken with Dr. Wilkins and Dr. Ochoa who were respectively kind enough to admit the patient and consult on the patient's respiratory failure. Departure Communication (Admissions) Time/Spoke to Admitting Phy: 07:36 Dr. Wilkins Time/Spoke to Consulting Phy: 07:36 Dr. Ochoa Impression Primary Impression: Respiratory failure Qualified Codes: J96.00 - Acute respiratory failure, unspecified whether with hypoxia or hypercapnia Disposition: ADMITTED INPATIENT Condition: Improved Admissions Decision to Admit Reason: Admit from ER (General) Decision to Admit/Date: Jun 12, 2019 Time/Decision to Admit Time: 07:37 Departure-Patient Inst. Referrals: ISAI AVILA MD (PCP/Family) Primary Care Physician JAMIE MAHMOOD MD Jun 12, 2019 07:36
--- NOTE | 2019-06-12 07:38 | Diagnostic Imaging Report ---
INDICATION: Shortness of air. TECHNIQUE: Single view chest at 7:08 AM. CORRELATION STUDY: 05/14/2018 FINDINGS: Heart size is enlarged. Vasculature is increased from prior study. Scattered pulmonary parenchymal densities in the mid and lower lung mike could reflect superimposed edema versus infiltrate. Prominent interstitial markings may reflect mild edema. There is some fullness of bilateral hilar structures. Very questionable density in the lateral right mid lung field. Likely old left/right rib fracture deformities. IMPRESSION: 1. Cardiac enlargement with a component vascular congestion is present. Superimposed areas of edema versus infiltrate and perihilar and basilar regions. 2. Very questionable density in the right mid lung field. Would recommend short-term followup two-view chest imaging for reassessment. Dictated by: Dictated on workstation # [id number]
--- NOTE | 2019-06-12 07:54 | NUR ---
Patient states he is on oxygen at home at 2 LPM. He wears oxygen continuosly. He states he is feeling better after being on Bipap machine in the ER. Patient voided 175 ML of urine after Lasix in ER.
--- NOTE | 2019-06-12 07:57 | NUR ---
Patient transported to floor with IV NS fluids infusing at 50 ML/HR.
--- NOTE | 2019-06-12 07:59 | NUR ---
RT notified and will be assisting with transporting patient to floor due to patient being on bipap.
--- NOTE | 2019-06-12 08:00 | NUR ---
Patient voided 200 ML clear yellow urine in urinal.
--- NOTE | 2019-06-12 08:15 | NUR ---
VALDO KRUGER admitted to room 417-1, with an admitting diagnosis of respiratory distress, on 06/12/19 from ED via cart, accompanied by staff.VALDO KRUGER introduced to surroundings, call light, bed controls, phone, TV, temperature control, lights, meal times, smoking policy, visitor policy, side rail policy, bathrooms and showers. VALDO KRUGER verbalizes understanding that [facility] is not responsible for the loss or damage to any personal effects or valuables that are kept in the patients posession during their hospitalization. The following Patient Care Plans were discussed with the patient: Discharge Planning, pain, and respiratory distress. VALDO KRUGER verbalizes understanding of Interdisciplinary Patient Education. Patient and/or family were informed about the Rapid Response Team and its purpose.
--- NOTE | 2019-06-12 11:56 | History & Physical-Hospitalist ---
History of Present Illness HPI/Chief Complaint this is a 73-year-old white male who lives by himself. He has a history of COPD. He notes that he has had 3 occasions where he begins getting suddenly short of breath associated with diaphoresis and inability to catch his breath. These have especially happened in the middle of the night where he is awakened suddenly having to sit up to breathe. He will increase his oxygen that he wears at night sometimes and start using back to back breathing treatments. This is associated with chest discomfort when he uses too much of the albuterol shakiness and diaphoresis. Last night it was so severe that he called the a [facility] where he was found to be in acute respiratory distress with chest x-ray that showed increased vascular redistribution. He has a history of paroxysmal atrial fibrillation and is seeing Dr. Molina in the past. at the time of my interview this morning he is feeling much much better has diuresed more than a liter of fluids and asks to get off his BiPAP. Source: patient Exam Limitations: no limitations Date Seen 06/12/19 Time Seen by a Provider: 11:15 Attending Physician Kaylegih Wilkins MD PCP Isai Verduzco MD Referring Physician Date of Admission Jun 12, 2019 at 07:30 Home Medications & Allergies Home Medications Reviewed patient Home Medication Reconciliation performed by pharmacy medication reconciliations veterinary assistant technician and/or nursing. Patients Allergies have been reviewed. Allergies Allergies Coded Allergies Sulfa (Sulfonamide Antibiotics) (Verified Allergy, Unknown, 06/12/19) Past Uymcebu-Vxfakx-Iysubq Hx Past Med/Social Hx: Reviewed Nursing Past Med/Soc Hx Patient Social History Marrital Status: single Employed/Student: retired Alcohol Use: Denies Use Recreational Drug Use: No Smoking Status: Former Smoker Former Smoker, Quit: Jun 01, 2013 Type Used: Cigarettes Physical Abuse Screen: No Sexual Abuse: No Recent Foreign Travel: No Contact w/other who traveled: No Recent Hopitalizations: No Recent Infectious Disease Expo: No Immunizations Up To Date Tetanus Booster (TDap): Unknown Pediatric: Yes Date of Pneumonia Vaccine: Sep 14, 2014 Seasonal Allergies Seasonal Allergies: No Past Medical History Respiratory: COPD Cardiac: Atrial Fibrillation, Hypertension, Palpitations Reproductive: No Musculoskeletal: Arthritis History of Blood Disorders: No Family History Asbestosis FH: breast cancer Review of Systems Constitutional: see HPI EENTM: no symptoms reported Respiratory: orthopnea, short of breath Cardiovascular: palpitations Gastrointestinal: no symptoms reported Genitourinary: no symptoms reported Musculoskeletal: no symptoms reported Skin: no symptoms reported Psychiatric/Neurological: No Symptoms Reported Physical Exam Physical Exam Vital Signs Vital Signs - First Documented 06/12/19 05:47 Temp 99.3 Pulse 90 Resp 34 B/P (MAP) 177/101 (126) Pulse Ox 96 O2 Delivery NIV CPAP O2 Flow Rate 10.00 Capillary Refill : Greater Than 3 Seconds Height, Weight, BMI Height: 5'9.00" Weight: 211lbs. 8.0oz. 95.372232wq; 33.7 BMI Method:Stated General Appearance: No Apparent Distress, WD/WN Eyes: Bilateral Eye Normal Inspection HEENT: PERRL/EOMI, Normal ENT Inspection, Pharynx Normal Neck: Full Range of Motion, Normal Inspection, Non Tender, Supple Respiratory: Lungs Clear, Normal Breath Sounds, No Accessory Muscle Use, No Respiratory Distress, Other (increased AP diameter) Cardiovascular: Regular Rate, Rhythm, No Edema, No Gallop, No JVD, Normal Peripheral Pulses Gastrointestinal: Normal Bowel Sounds, Non Tender, Soft Rectal: Deferred Back: Normal Inspection, No CVA Tenderness, No Vertebral Tenderness Extremity: Normal Capillary Refill, Normal Inspection, Normal Range of Motion, Non Tender, No Calf Tenderness Neurologic/Psychiatric: Alert, Oriented x3, No Motor/Sensory Deficits, Normal Mood/Affect Skin: Normal Color, Warm/Dry Lymphatic: No Adenopathy Results Results/Procedures Labs Laboratory Tests 06/12/19 06:04 Patient resulted labs reviewed. Imaging: Reviewed Imaging Report Assessment/Plan Admission Diagnosis acute respiratory failure suspicious for PND and cardiac etiology we'll check a BNP obtain an echocardiogram and consult cardiology COPD-poor control-Consult pulmonology Hypertension we'll restart medications Admission Status: Observation Clinical Quality Measures DVT/VTE Risk/Contraindication: Risk Factor Score Per Nursin RFS Level Per Nursing on Admit: 4+=Very High Copy Copies To 1: ISAI VERDUZCO MD, KATHLEEN M MD Jun 12, 2019 11:56
[2019-06-12] MEDS ORDERED: methylPREDNISolone 125 MG (Solu-MEDROL) VIAL IVP SCH (12:00)
[2019-06-12] MEDS ORDERED: RT-ALBUTEROL/IPRATROPIUM 3 ML (DUONEB) VIAL INH PRN (12:00)
[2019-06-12] MEDS ORDERED: RT-ALBUTEROL SULF 2.5 MG/3 ML PRE-MIX VIAL IH PRN (12:00)
[2019-06-12] MEDS: cloNIDine 0.2 MG (CATAPRES) TAB PO SCH ×2 (12:30→20:12)
[2019-06-12] MEDS: ENOXAPARIN 40 MG/0.4 ML (LOVENOX) SYR SC SCH (12:30)
--- NOTE | 2019-06-12 14:23 | Consultation-Cardiology ---
HPI-Cardiology Cardiology Consultation: Date of Consultation 06/12/19 Date of Admission Attending Physician Kayleigh Wilkins MD Admitting Physician Win Verduzco MD Consulting Physician Marta MOLINA MD HPI: Time Seen by a Provider: 14:45 Chief Complaint: Shortness of breath This is a 73-year-old gentleman who has history of COPD. He has possible history of paroxysmal atrial fibrillation and saw me once in the office. I requested an event monitor for a month. He is not followed up yet. We do not have objective evidence that the patient has paroxysmal atrial fibrillation. He presents with shortness of breath, chest discomfort. Review of Systems-Cardiology Review of Systems Constitutional: As described under HPI; No As described under HPI, No no symptoms reported, No chills, No fever, No lightheadedness Eyes: No As described under HPI, No no symptoms reported, No blindness, No blurred vision, No contact lenses, No drainage, No decreased acuity, No foreign body sensation, No pain, No vision change Ears/Nose/Throat: No As described under HPI, No no symptoms reported, No chronic hearing loss, No ear discharge, No ear pain, No nasal drainage, No ulcerations Respiratory: SOB with excertion Cardiovascular: No no symptoms reported; As described under HPI; No As described under HPI, No chest pain, No edema, No irregular heart rate, No lightheadedness, No palpitations Gastrointestinal: No no symptoms reported, No As described under HPI, No abdomen distended, No abdominal pain, No blood streaked bowels, No constipation, No diarrhea, No nausea, No vomiting, No stool coloration changes Genitourinary: No As described under HPI, No burning, No dysuria, No discharge, No frequency, No flank pain, No hematuria, No urgency Skin: No rash, No skin related problems, No ulcerations Psychiatric/Neurological: No anxiety, No depression, No seizure, No focal weakness, No syncope Hematologic: No bleeding abnormalities BVV-Crukrk-Tsbwrc Hx Patient Social History Marrital Status: single Employed/Student: retired Alcohol Use: Denies Use Recreational Drug Use: No Smoking Status: Former Smoker Type Used: Cigarettes Recent Foreign Travel: No Recent Infectious Disease Expo: No Hospitalization with Isolation: Denies Physical Abuse Screen: No Sexual Abuse: No Immunizations Up To Date Tetanus Booster (TDap): Unknown Date of Pneumonia Vaccine: Sep 14, 2014 Past Medical History PMH As described under Assessment. Family Medical History Family History: Asbestosis FH: breast cancer Allergies and Home Medications Allergies Coded Allergies: Sulfa (Sulfonamide Antibiotics) (Verified Allergy, Unknown, 06/12/19) Home Medications Albuterol Sulfate 8.5 Gm Hfa.aer.ad, 1-2 PUFF IH Q4H PRN for WHEEZING, (Reported) Amlodipine Besylate 10 Mg Tablet, 10 MG PO DAILY, (Reported) Clonidine Hcl 0.2 Mg Tablet, 0.2 MG PO Q8H, (Reported) Enalapril Maleate 20 Mg Tablet, 20 MG PO DAILY, (Reported) Furosemide 40 Mg Tablet, 40 MG PO DAILY, (Reported) Indomethacin 50 Mg Capsule, 50 MG PO DAILY PRN for PAIN, (Reported) Metoprolol Succinate 100 Mg Tab.sr.24h, 100 MG PO BID, (Reported) Patient Home Medication List Home Medication List Reviewed: Yes Physical Exam-Cardiology Physical Exam Vital Signs/I&O 06/12/19 06/12/19 06/12/19 06/12/19 05:47 05:47 06:16 07:52 Temp 99.3 97.9 Pulse 90 66 79 Resp 34 15 19 B/P (MAP) 177/101 (126) 155/88 (110) Pulse Ox 96 94 98 95 O2 Delivery NIV CPAP NIV/CPAP NIV Bilevel O2 Flow Rate 10.00 10.00 40.00 06/12/19 06/12/19 06/12/19 06/12/19 08:22 08:22 08:29 10:31 Temp 98.5 98.5 Pulse 63 63 75 79 Resp 22 21 B/P (MAP) 176/70 (105) 176/70 (105) Pulse Ox 95 95 98 97 O2 Delivery NIV/Bilevel NIV Bilevel O2 Flow Rate 40.00 40.00 40.00 06/12/19 06/12/19 06/12/19 06/12/19 10:50 10:56 11:00 12:55 Temp 98.5 Pulse 63 90 102 Resp 22 B/P (MAP) 176/70 Pulse Ox 93 96 O2 Delivery Nasal Cannula NIV Bilevel O2 Flow Rate 2.00 40.00 06/12/19 06/12/19 06/12/19 06/12/19 12:56 13:00 13:03 14:59 Pulse 102 Pulse Ox 94 O2 Delivery Nasal Cannula Room Air Nasal Cannula O2 Flow Rate 2.00 2.00 2.00 Capillary Refill : Less Than 3 SecondsLess Than 3 Seconds Constitutional: appears stated age; No apparent distress; well-developed, well- nourished HEENT: PERRL; No normal ENT inspection, No TMs normal, No pharynx normal, No scleral icterus (R), No scleral icterus (L), No pale conjunctivae (R), No pale conjunctivae (L), No photophobia, No TM abnormal (R), No TM abnormal (L), No pharyngeal erythema, No tonsillar exudate, No other, No discharge, No EOMI; hearing is well preserved; No hard of hearing; oral hygience is good; No ulcerat ion, No xanthelasmas are seen Neck: No non-tender, No full range of motion, No supple, No normal inspection, No carotid bruit, No limited range of motion, No lymphadenopathy (R), No lymphadenopathy (L), No tender lateral, No tender midline, No thyromegaly, No other; carotid pulses are 2 + bilaterally; No with good upstrokes Respiratory: No accessory muscle use, No respiratory distress, No chest tender, No chest expansion is symmetric; chest is bilaterally symmetric; No lungs clear to percussion; lungs clear to auscultation; No crackles, No rhonchi, No rales, No stridor, No wheezing, No pleural rub, No other Cardiovascular: regular rate-rhythm; No irregularly irregular, No extra beats, No parasternal heave is noted, No JVD, No edema, No bradycardia, No tachycardia, No point of maximal impulse, No cardiac thrills are palpable; S1 and S2; No gallop/S3, No gallop/S4, No diastolic murmur, No systolic murmur, No friction rub, No click, No other Gastrointestinal: No tender, No soft, No round, No distended, No pulsatile mass, No organomegaly, No guarding, No rebound, No tenderness, No hernia, No mass, No audible bowel sounds, No abnormal bowel sounds, No abdominal bruits, No spleenomegaly, No other Rectal: deferred Extremities: No normal range of motion, No non-tender, No normal inspection, No pedal edema, No calf tenderness, No normal capillary refill, No pelvis stable, No calf tenderness, No inflammation, No pedal edema, No slow capillary refill, No swelling, No other, No abrasion, No clubbing, No cyanosis, No ecchymosis, No laceration, No no lower extremity edema bilateral, No significant edema, No tenderness, No wound Neurologic/Psychiatric: no motor/sensory deficits, alert, normal mood/affect, oriented x 3, power is 5/5 both on sides Skin: No normal color, No warm/dry, No cyanosis, No cool, No diaphoresis, No damp, No ecchymosis, No jaundice, No mottled, No pallor, No rash, No tattoos/piercings, No ulcerations, No rash on exposed areas, No ulcerations on exposed areas, No other Data Review Labs Laboratory Tests 06/12/19 06:00: Urine Color YELLOW, Urine Clarity CLEAR, Urine pH 6.5, Urine Specific Foster 1.015L, Urine Protein 3+H, Urine Glucose (UA) NEGATIVE, Urine Ketones 1+H, Urine Nitrite NEGATIVE, Urine Bilirubin NEGATIVE, Urine Urobilinogen NORMAL, Urine Leukocyte Esterase NEGATIVE, Urine RBC (Auto) 1+H, Urine RBC NONE, Urine WBC NONE, Urine Squamous Epithelial Cells 0-2, Urine Crystals NONE, Urine Bacteria TRACE, Urine Casts NONE, Urine Mucus SMALLH, Urine Culture Indicated CULTURE PENDING 06/12/19 06:04: White Blood Count 12.4H, Red Blood Count 4.62, Hemoglobin 15.1, Hematocrit 46, Mean Corpuscular Volume 99, Mean Corpuscular Hemoglobin 33, Mean Corpuscular Hemoglobin Concent 33, Red Cell Distribution Width 13.4, Platelet Count 218, Mean Platelet Volume 11.5H, Neutrophils (%) (Auto) 82H, Lymphocytes (%) (Auto) 10L, Monocytes (%) (Auto) 7, Eosinophils (%) (Auto) 1, Basophils (%) (Auto) 0, Neutrophils # (Auto) 10.2H, Lymphocytes # (Auto) 1.2, Monocytes # (Auto) 0.8, Eosinophils # (Auto) 0.2, Basophils # (Auto) 0.1, Prothrombin Time 13.6, INR Comment 1.0, Activated Partial Thromboplast Time 29, Sodium Level 140, Potassium Level 3.8, Chloride Level 105, Carbon Dioxide Level 20L, Anion Gap 15H, Blood Urea Nitrogen 12, Creatinine 0.86, Estimat Glomerular Filtration Rate > 60, BUN/Creatinine Ratio 14, Glucose Level 105, Lactic Acid Level 1.88, Calcium Level 9.3, Corrected Calcium 9.0, Total Bilirubin 0.6, Aspartate Amino Transf (AST/SGOT) 19, Alanine Aminotransferase (ALT/SGPT) 19, Alkaline Phosphatase 71, Troponin I < 0.028, B-Type Natriuretic Peptide 864.0H, Total Protein 7.2, Albumin 4.4 06/12/19 06:08: Blood Gas Puncture Site LEFT RADIAL, Blood Gas Patient Temperature 99.3, Arterial Blood pH 7.41, Arterial Blood Partial Pressure CO2 36, Arterial Blood Partial Pressure O2 87, Arterial Blood HCO3 22L, Arterial Blood Total CO2 23.4, Arterial Blood Oxygen Saturation 97, Arterial Blood Base Excess -1.5, Sanju Test YES-POS, Blood Gas Ventilator Setting NO, Blood Gas Inspired Oxygen 40% A/P-Cardiology Assessment/Admission Diagnosis Shortness of breath, Chest tightness, COPD, Possible paroxysmal atrial fibrillation Plan Shortness of breath, could be multifactorial. Check echocardiogram. Very likely COPD exacerbation with borderline elevated BNP. Chest tightness, will likely require nuclear stress test. COPD, treated for COPD exacerbation. Possible paroxysmal atrial fibrillation, will review the event monitor. Thank you for your consultation. Please call me if you have any questions. Jaz Molina MD, FACP, FACC, FSCAI, FHRS, CCDS Interventional Cardiology Cardiac Electrophysiology Vascular Medicine and Endovascular Interventions Clinical Quality Measures DVT/VTE Risk/Contraindication: Risk Factor Score Per Nursin RFS Level Per Nursing on Admit: 4+=Very High Marta MOLINA MD Jun 12, 2019 2:23 pm
[2019-06-12] MEDS: RT-ALBUTEROL/IPRATROPIUM 3 ML (DUONEB) VIAL INH SCH ×3 (14:59→22:34)
--- NOTE | 2019-06-12 17:02 | Pulmonary Consultation ---
History of Present Illness History of Present Illness Date of Consultation 06/12/19 16:50 Time Seen by Provider: 16:50 Date of Admission History of Present Illness 73yo with hx of Afib, COPD presented to ED secondary to worsening SOB, diaphoresis. SOB episodes appear to be worse at night. Pt has been waking up SOB. He has been increasing oxygen flow when he has these episodes of SOB. I am consulted for pulmonary management. Allergies and Home Medications Allergies Coded Allergies: Sulfa (Sulfonamide Antibiotics) (Verified Allergy, Unknown, 06/12/19) Home Medications Albuterol Sulfate 8.5 Gm Hfa.aer.ad, 1-2 PUFF IH Q4H PRN for WHEEZING, (Reported) Amlodipine Besylate 10 Mg Tablet, 10 MG PO DAILY, (Reported) Clonidine Hcl 0.2 Mg Tablet, 0.2 MG PO Q8H, (Reported) Enalapril Maleate 20 Mg Tablet, 20 MG PO DAILY, (Reported) Furosemide 40 Mg Tablet, 40 MG PO DAILY, (Reported) Indomethacin 50 Mg Capsule, 50 MG PO DAILY PRN for PAIN, (Reported) Metoprolol Succinate 100 Mg Tab.sr.24h, 100 MG PO BID, (Reported) Past Eosyask-Viqrgs-Nurdpx Hx Past Med/Social Hx: Reviewed Nursing Past Med/Soc Hx Patient Social History Alcohol Use: Denies Use Recreational Drug Use: No Smoking Status: Former Smoker Type Used: Cigarettes Former Smoker, Quit: Jun 01, 2013 Recent Foreign Travel: No Contact w/Someone Who Travel: No Recent Infectious Disease Expo: No Recent Hopitalizations: No Immunizations Up To Date Tetanus Booster (TDap): Unknown PED Vaccines UTD: Yes Date of Pneumonia Vaccine: Sep 14, 2014 Seasonal Allergies Seasonal Allergies: No Past Medical History Surgeries: Yes Respiratory: Yes COPD Cardiac: Yes Atrial Fibrillation, Hypertension, Palpitations Neurological: No Reproductive Disorders: No Genitourinary: No Gastrointestinal: No Musculoskeletal: Yes Arthritis Endocrine: No HEENT: No Cancer: No Psychosocial: No Integumentary: No Blood Disorders: No Family Medical History Asbestosis FH: breast cancer Review of Systems Time Seen by Provider: 17:07 Constitutional: Sweats, Weakness, Malaise; No: Fever, Chills, Other Eyes: No: Pain, Vision change, Conjunctivae inflammation, Eyelid inflammation, Other, Redness ENT: Nose congestion; No: Ear pain, Ear discharge, Nose pain, Nose discharge, Mouth pain, Mouth swelling, Throat pain, Throat swelling, Other Respiratory: Cough, Dry, Shortness of breath, SOB with excertion, Wheezing; No: Hemoptysis Neurological: Weakness, Confusion Sepsis Event Evaluation Height, Weight, BMI Height: 5'9.00" Weight: 211lbs. 8.0oz. 95.355523ma; 33.7 BMI Method:Stated Exam Exam Vital Signs Date Time Temp Pulse Resp B/P (MAP) Pulse Ox O2 Delivery O2 Flow Rate FiO2 06/12/19 15:33 99.0 90 20 123/80 (94) 96 Nasal Cannula 2.00 06/12/19 14:59 94 Nasal Cannula 2.00 06/12/19 13:03 Room Air 2.00 06/12/19 13:00 102 06/12/19 12:56 Nasal Cannula 2.00 06/12/19 12:55 102 06/12/19 12:00 100.8 94 167/87 (113) 93 Nasal Cannula 2.00 06/12/19 11:00 90 96 06/12/19 10:56 98.5 63 22 176/70 NIV Bilevel 40.00 06/12/19 10:50 93 Nasal Cannula 2.00 06/12/19 10:31 79 21 97 40.00 06/12/19 08:29 75 22 98 40.00 06/12/19 08:22 98.5 63 176/70 (105) 95 NIV Bilevel 40.00 06/12/19 08:22 98.5 63 176/70 (105) 95 NIV/Bilevel 06/12/19 07:52 97.9 79 19 155/88 (110) 95 NIV Bilevel 06/12/19 06:16 66 15 98 40.00 06/12/19 05:47 99.3 90 34 177/101 (126) 94 NIV/CPAP 10.00 06/12/19 05:47 96 NIV CPAP 10.00 Height & Weight Height: 5'9.00" Weight: 211lbs. 8.0oz. 95.862545ve; 33.7 BMI Method:Stated General Appearance: No Apparent Distress, WD/WN HEENT: PERRL/EOMI, Normal ENT Inspection, Pharynx Normal Neck: Full Range of Motion, Normal Inspection, Non Tender, Supple Respiratory: Lungs Clear, Normal Breath Sounds, No Accessory Muscle Use, No Respiratory Distress, Other (increased AP diameter) Cardiovascular: Regular Rate, Rhythm, No Edema, No Gallop, No JVD, Normal Peripheral Pulses Capillary Refill: Less Than 3 Seconds Gastrointestinal: normal bowel sounds, non tender, soft Extremity: Normal Capillary Refill, Normal Inspection, Normal Range of Motion, Non Tender, No Calf Tenderness Neurologic/Psychiatric: Alert, Oriented x3, No Motor/Sensory Deficits, Normal Mood/Affect Skin: Normal Color, Warm/Dry Lymphatic: No Adenopathy Results Lab Laboratory Tests 06/12/19 06:04 Assessment/Plan Assessment/Plan COPDAE With hypoxia -SVNS -Add advair -Decrease Solumedrol to 40 IV Q 6 -ABG C02 36 HTN -Monitor Probable TUTU -Check out pt PSG XAVI STEVENS DO Jun 12, 2019 17:01
[2019-06-12] MEDS: methylPREDNISolone 125 MG (Solu-MEDROL) VIAL IVP SCH (18:30)
[2019-06-12] MEDS: RT-ADVAIR HFA 115/21 MCG PER PUFF IH SCH (19:16)
[2019-06-12] MEDS: meTOprolol SUCCINATE 100 MG (TOPROL XL) TAB PO SCH (20:12)
[2019-06-13] VITALS: BP 135/85
[2019-06-13] MEDS: methylPREDNISolone 125 MG (Solu-MEDROL) VIAL IVP SCH ×3 (00:29→12:03)
[2019-06-13] MEDS: RT-ALBUTEROL/IPRATROPIUM 3 ML (DUONEB) VIAL INH SCH ×5 (02:50→15:18)
[2019-06-13 04:00] VITALS: BP 179/79
[2019-06-13] MEDS: cloNIDine 0.2 MG (CATAPRES) TAB PO SCH ×2 (04:31→12:04)
[2019-06-13 05:37] LABS: BASOPHILS % (AUTO) 0 % (0-10); EOSINOPHILS % (AUTO) 0 % (0-10); HEMATOCRIT 43 % (40-54); HEMOGLOBIN 14.2 G/DL (13.3-17.7); LYMPHOCYTES # (AUTO) 0.4 X 10^3 (1.0-4.0); LYMPHOCYTES % (AUTO) 4 % (12-44); MEAN CORPUSCULAR HEMOGLOBIN 33 PG (25-34); MEAN CORPUSCULAR HGB CONC 33 G/DL (32-36); MEAN CORPUSCULAR VOLUME 98 FL (80-99); MONOCYTES # (AUTO) 0.3 X 10^3 (0.0-1.0); MONOCYTES % (AUTO) 3 % (0-12); NEUTROPHILS % (AUTO) 93 % (42-75); PLATELET COUNT 181 10^3/uL (130-400); RED CELL DISTRIBUTION WIDTH 13.3 % (10.0-14.5); WHITE BLOOD COUNT 10.7 10^3/uL (4.3-11.0)
[2019-06-13 05:57] LABS: ALANINE AMINOTRANSFERASE 15 U/L (0-55); ALBUMIN 4.1 GM/DL (3.2-4.5); ALKALINE PHOSPHATASE 68 U/L (40-136); BILIRUBIN,TOTAL 0.6 MG/DL (0.1-1.0); BUN/CREATININE RATIO 17; CALCIUM 9.7 MG/DL (8.5-10.1); CARBON DIOXIDE 21 MMOL/L (21-32); CHLORIDE 106 MMOL/L (98-107); CREATININE SERUM 0.83 MG/DL (0.60-1.30); GFR ESTIMATED > 60; GLUCOSE 121 MG/DL (70-105); POTASSIUM 3.7 MMOL/L (3.6-5.0); SODIUM 141 MMOL/L (135-145); TOTAL PROTEIN 6.8 GM/DL (6.4-8.2)
[2019-06-13 06:02] LABS: BAND NEUTROPHILS 4 %; LYMPHOCYTES % (MANUAL) 3 %; MONOCYTES % (MANUAL) 3 %; NEUTROPHILS % (MANUAL) 90 %; RBC MORPH NORMAL
[2019-06-13] MEDS: RT-ADVAIR HFA 115/21 MCG PER PUFF IH SCH (07:15)
--- NOTE | 2019-06-13 07:48 | Pulmonary Progress Note ---
Sepsis Event Evaluation Height, Weight, BMI Height: 5'9.00" Weight: 213lbs. 0.0oz. 96.674825cw; 33.7 BMI Method:Stated Focused Exam Lactate Level 06/12/19 06:04: Lactic Acid Level 1.88 Exam Exam Vital Signs Date Time Temp Pulse Resp B/P (MAP) Pulse Ox O2 Delivery O2 Flow Rate FiO2 06/13/19 07:21 96 Room Air 06/13/19 07:15 96 Nasal Cannula 2.00 06/13/19 04:00 98.4 59 16 179/79 (112) 98 Nasal Cannula 2.00 06/13/19 01:00 74 06/13/19 00:00 98.2 77 16 135/85 (102) 99 Nasal Cannula 2.00 06/12/19 22:34 96 Nasal Cannula 2.00 06/12/19 20:38 98.2 94 20 178/82 (114) 95 Nasal Cannula 2.00 06/12/19 20:00 96 Nasal Cannula 2.00 06/12/19 19:15 94 Nasal Cannula 2.00 06/12/19 19:15 Nasal Cannula 2.00 06/12/19 19:00 84 06/12/19 15:33 99.0 90 20 123/80 (94) 96 Nasal Cannula 2.00 06/12/19 14:59 94 Nasal Cannula 2.00 06/12/19 13:03 Room Air 2.00 06/12/19 13:00 102 06/12/19 12:56 Nasal Cannula 2.00 06/12/19 12:55 102 06/12/19 12:00 100.8 94 167/87 (113) 93 Nasal Cannula 2.00 06/12/19 11:00 90 96 06/12/19 10:56 98.5 63 22 176/70 NIV Bilevel 40.00 06/12/19 10:50 93 Nasal Cannula 2.00 06/12/19 10:31 79 21 97 40.00 06/12/19 08:29 75 22 98 40.00 06/12/19 08:22 98.5 63 176/70 (105) 95 NIV Bilevel 40.00 06/12/19 08:22 98.5 63 176/70 (105) 95 NIV/Bilevel 06/12/19 07:52 97.9 79 19 155/88 (110) 95 NIV Bilevel I & O 06/13/19 07:00 Intake Total 2830 ml Output Total 2475 ml Balance 355 ml Height & Weight Height: 5'9.00" Weight: 213lbs. 0.0oz. 96.094324ou; 33.7 BMI Method:Stated General Appearance: No Apparent Distress, WD/WN HEENT: PERRL/EOMI, Normal ENT Inspection, Pharynx Normal Neck: Full Range of Motion, Normal Inspection, Non Tender, Supple Respiratory: Lungs Clear, Normal Breath Sounds, No Accessory Muscle Use, No Respiratory Distress, Other (increased AP diameter) Cardiovascular: Regular Rate, Rhythm, No Edema, No Gallop, No JVD, Normal Peripheral Pulses Capillary Refill: Less Than 3 Seconds Gastrointestinal: normal bowel sounds, non tender, soft Extremity: Normal Capillary Refill, Normal Inspection, Normal Range of Motion, Non Tender, No Calf Tenderness Neurologic/Psychiatric: Alert, Oriented x3, No Motor/Sensory Deficits, Normal Mood/Affect Skin: Normal Color, Warm/Dry Lymphatic: No Adenopathy Results Lab Laboratory Tests 06/12/19 06:04 06/13/19 05:00 Assessment/Plan Assessment/Plan COPDAE With hypoxia -SVNS -advair -Solumedrol to 40 IV Q 6 -ABG C02 36 HTN -Monitor Probable TUTU -Check out pt PSG XAVI STEVENS DO Jun 13, 2019 07:47
[2019-06-13 08:00] VITALS: BP 140/76
[2019-06-13] MEDS: meTOprolol SUCCINATE 100 MG (TOPROL XL) TAB PO SCH (08:12)
--- NOTE | 2019-06-13 08:21 | Diagnostic Imaging Report ---
INDICATION: Respiratory failure. TIME OF EXAM: 5:23 AM Correlation is made with prior chest from one day earlier. FINDINGS: Heart remains enlarged. There continues to be some central congestion. There may be some minimal infiltrate or atelectasis in right upper lobe. No effusion is seen. There is no pneumothorax. IMPRESSION: Overall similar appearance of the chest when compared with examination one day earlier. Dictated by: Dictated on workstation # [id number]
[2019-06-13] MEDS ORDERED: amLODIPine 10 MG (NORVASC) TAB PO SCH (09:00)
[2019-06-13] MEDS ORDERED: ENALAPRIL 10 MG (VASOTEC) TAB PO SCH (09:00)
[2019-06-13] MEDS ORDERED: PRED10TA22 PO (11:17)
[2019-06-13] MEDS ORDERED: FLUT12AE4 IH (11:17)
--- NOTE | 2019-06-13 11:21 | Discharge Inst-Simple/Standard ---
Discharge Inst-Standard Discharge Medications New, Converted or Re-Newed RX: Transmitted to Pharmacy Patient Instructions/Follow Up Plan of Care/Instructions/FU: Please continue to take your medications as written. Please follow up with Dr Verduzco, Dr Molina, and Dr Ochoa as scheduled. Activity as Tolerated: Yes Discharge Diet: Cardiac Diet Return to The Hospital For: Shortness of breath, Chest pain, if you feel you are getting worse. PATRICIA REID MD Jun 13, 2019 11:21
--- NOTE | 2019-06-13 11:26 | Discharge Summary ---
Diagnosis/Chief Complaint Date of Admission Jun 12, 2019 at 07:30 Date of Discharge Discharge Date: Jun 13, 2019 Admission Diagnosis acute respiratory failure suspicious for PND and cardiac etiology we'll check a BNP obtain an echocardiogram and consult cardiology COPD-poor control-Consult pulmonology Hypertension we'll restart medications Discharge Summary Procedures/Consulations Dr Molina- Cardiology Dr Ochoa- Pulmonology Discharge Physical Exam Allergies: Coded Allergies: Sulfa (Sulfonamide Antibiotics) (Verified Allergy, Unknown, 06/12/19) Vitals & I&Os Vital Signs Date Time Temp Pulse Resp B/P (MAP) Pulse Ox O2 Delivery O2 Flow Rate FiO2 06/13/19 12:00 98.8 73 18 169/85 (113) 94 Nasal Cannula 2.00 General Appearance: No Apparent Distress, WD/WN Respiratory: Lungs Clear, No Respiratory Distress Cardiovascular: Regular Rate, Rhythm, No Murmur Gastrointestinal: Normal Bowel Sounds, Non Tender, Soft Neurologic/Psychiatric: Alert, Oriented x3 Hospital Course Pt was admitted for acute COPD exacerbation. He responded well to steroids and frequent nebulizer breathing treatments. He was seen in consultation by Dr Ochoa and Dr Molina. He will need an outpatient stress test. He is to follow up with his PCP in one week and with Dr Molina and Dr Ochoa. Labs (last 24 hrs) Laboratory Tests 06/13/19 05:00: White Blood Count 10.7, Red Blood Count 4.37, Hemoglobin 14.2, Hematocrit 43, Mean Corpuscular Volume 98, Mean Corpuscular Hemoglobin 33, Mean Corpuscular Hemoglobin Concent 33, Red Cell Distribution Width 13.3, Platelet Count 181, Mean Platelet Volume 12.0H, Neutrophils (%) (Auto) 93H, Lymphocytes (%) (Auto) 4L, Monocytes (%) (Auto) 3, Eosinophils (%) (Auto) 0, Basophils (%) (Auto) 0, Neutrophils # (Auto) 10.0H, Lymphocytes # (Auto) 0.4L, Monocytes # (Auto) 0.3, Eosinophils # (Auto) 0.0, Basophils # (Auto) 0.0, Neutrophils % (Manual) 90, Lymphocytes % (Manual) 3, Monocytes % (Manual) 3, Band Neutrophils 4, Blood Morphology Comment NORMAL, Sodium Level 141, Potassium Level 3.7, Chloride Level 106, Carbon Dioxide Level 21, Anion Gap 14, Blood Urea Nitrogen 14, Creatinine 0.83, Estimat Glomerular Filtration Rate > 60, BUN/Creatinine Ratio 17, Glucose Level 121H, Calcium Level 9.7, Corrected Calcium 9.6, Total Bilirubin 0.6, Aspartate Amino Transf (AST/SGOT) 18, Alanine Aminotransferase (ALT/SGPT) 15, Alkaline Phosphatase 68, Total Protein 6.8, Albumin 4.1 Patient resulted labs reviewed. Pending Labs Imaging: Reviewed Imaging Report Discussion & Recommendations Discharge Planning: >30 minutes discharge planning Discharge Home Medications: Active Scripts Active Prednisone 10 Mg Tab.ds.pk 10 Mg PO DAILY Take 6 tabs(60mg)daily,decrease by 1 tab(10MG)daily. Advair Hfa 115-21 Mcg Inhaler (Fluticasone/Salmeterol) 12 Gm Hfa.aer.ad 2 Puff IH BID@,20 Reported Hydrocodon-Acetaminophn 10-325 (Hydrocodone/Acetaminophen) 1 Each Tablet 1 Tab PO Q4H PRN Proair Hfa (Albuterol Sulfate) 8.5 Gm Hfa.aer.ad 1-2 Puff IH Q4H PRN Enalapril Maleate 20 Mg Tablet 20 Mg PO DAILY Indomethacin 50 Mg Capsule 50 Mg PO DAILY PRN Amlodipine Besylate 10 Mg Tablet 10 Mg PO DAILY Toprol Xl 100MG (Metoprolol Succinate) 100 Mg Tab.sr.24h 100 Mg PO BID Catapres (Clonidine HCl) 0.2 Mg Tablet 0.2 Mg PO Q8H Lasix (Furosemide) 40 Mg Tablet 40 Mg PO DAILY Instructions to patient/family Please see electronic discharge instructions given to patient. Clinical Quality Measures DVT/VTE Risk/Contraindication: Risk Factor Score Per Nursin RFS Level Per Nursing on Admit: 4+=Very High PATRICIA REID MD Jun 13, 2019 11:26 am
[2019-06-13] MEDS ORDERED: RT-ALBUINH PO (11:56)
[2019-06-13] MEDS ORDERED: HYDR-3820 PO (11:56)
[2019-06-13 12:00] VITALS: BP 169/85
[2019-06-13] MEDS: ENOXAPARIN 40 MG/0.4 ML (LOVENOX) SYR SC SCH (12:04)
--- NOTE | 2019-06-13 12:15 | NUR ---
DISCHARGE ORDERS HAD ALREADY BEEN STARTED, NO OBVIOUS CHANGES NEEDED TO BE MADE EXCEPT THE FOLLOWING: METOPROLOL SUCC IS WHAT IS ON THE MED REC BUT ON THE EXT MED HISTORY IT LOOKS LIKE HE PICKED UP THE METOPROLOL TART. SPOKE WITH THE NURSE AND SHE DID NOT WANT ME TO CHANGE IT.
--- NOTE | 2019-06-13 12:17 | NUR ---
patient was on RA for over 60 mins and was satting 93%; when patient stood up his sat was 94% and never dropped below 91%. Patient is not requiring O2 at rest or on exertion
--- NOTE | 2019-06-13 13:50 | NUR ---
Initial visit: pt expressed positive mood and perspective, stating he was able to breath much better now and looked forward to returning home. 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
[2019-06-13 16:25] VITALS: BP 178/80
--- NOTE | 2019-06-13 17:52 | Cardiology Progress Note ---
Cardiology SOAP Progress Note Subjective: No cardiac symptoms. Objective: I&O/Vital Signs 06/13/19 06/13/19 06/13/19 06/13/19 07:00 07:15 07:21 08:00 Temp 100.1 Pulse 82 82 Resp 18 B/P (MAP) 140/76 (97) Pulse Ox 96 96 95 O2 Delivery Nasal Cannula Room Air Nasal Cannula O2 Flow Rate 2.00 2.00 06/13/19 06/13/19 12:00 16:25 Temp 98.8 98.5 Pulse 73 65 Resp 18 18 B/P (MAP) 169/85 (113) 178/80 (112) Pulse Ox 94 95 O2 Delivery Nasal Cannula Room Air O2 Flow Rate 2.00 06/13/19 00:00 Intake Total 1520 ml Output Total 2175 ml Balance -655 ml Weight (Pounds): 213 Weight (Ounces): 0.0 Weight (Calculated Kilograms): 96.553038 Constitutional: appears stated age; No apparent distress; well-developed, well- nourished Respiratory: No accessory muscle use, No respiratory distress, No chest tender, No chest expansion is symmetric; chest is bilaterally symmetric; No lungs clear to percussion; lungs clear to auscultation; No crackles, No rhonchi, No rales, No stridor, No wheezing, No pleural rub, No other Cardiovascular: regular rate-rhythm; No irregularly irregular, No extra beats, No parasternal heave is noted, No JVD, No edema, No bradycardia, No tachycardia, No point of maximal impulse, No cardiac thrills are palpable; S1 and S2; No gallop/S3, No gallop/S4, No diastolic murmur, No systolic murmur, No friction rub, No click, No other Gastrointestional: No tender, No soft, No round, No distended, No pulsatile mass, No organomegaly, No guarding, No rebound, No tenderness, No hernia, No mass, No audible bowel sounds, No abnormal bowel sounds, No abdominal bruits, No spleenomegaly, No other Extremities: No normal range of motion, No non-tender, No normal inspection, No pedal edema, No calf tenderness, No normal capillary refill, No pelvis stable, No calf tenderness, No inflammation, No pedal edema, No slow capillary refill, No swelling, No other, No abrasion, No clubbing, No cyanosis, No ecchymosis, No laceration, No no lower extremity edema bilateral, No significant edema, No tenderness, No wound Neurologic/Psychiatric: no motor/sensory deficits, alert, normal mood/affect, oriented x 3, power is 5/5 both on sides Skin: No normal color, No warm/dry, No cyanosis, No cool, No diaphoresis, No damp, No ecchymosis, No jaundice, No mottled, No pallor, No rash, No tattoos/piercings, No ulcerations, No rash on exposed areas, No ulcerations on exposed areas, No other Results/Procedures: Labs Laboratory Tests 06/13/19 05:00: White Blood Count 10.7, Red Blood Count 4.37, Hemoglobin 14.2, Hematocrit 43, Mean Corpuscular Volume 98, Mean Corpuscular Hemoglobin 33, Mean Corpuscular Hemoglobin Concent 33, Red Cell Distribution Width 13.3, Platelet Count 181, Mean Platelet Volume 12.0H, Neutrophils (%) (Auto) 93H, Lymphocytes (%) (Auto) 4L, Monocytes (%) (Auto) 3, Eosinophils (%) (Auto) 0, Basophils (%) (Auto) 0, Neutrophils # (Auto) 10.0H, Lymphocytes # (Auto) 0.4L, Monocytes # (Auto) 0.3, Eosinophils # (Auto) 0.0, Basophils # (Auto) 0.0, Neutrophils % (Manual) 90, Lymphocytes % (Manual) 3, Monocytes % (Manual) 3, Band Neutrophils 4, Blood Morphology Comment NORMAL, Sodium Level 141, Potassium Level 3.7, Chloride Level 106, Carbon Dioxide Level 21, Anion Gap 14, Blood Urea Nitrogen 14, Creatinine 0.83, Estimat Glomerular Filtration Rate > 60, BUN/Creatinine Ratio 17, Glucose Level 121H, Calcium Level 9.7, Corrected Calcium 9.6, Total Bilirubin 0.6, Aspartate Amino Transf (AST/SGOT) 18, Alanine Aminotransferase (ALT/SGPT) 15, Alkaline Phosphatase 68, Total Protein 6.8, Albumin 4.1 Microbiology 06/12/19 Blood Culture - Preliminary, Resulted No growth 06/12/19 Urine Culture - Final, Complete 3 or more isolates A/P: Assessment/Dx: Shortness of breath, Chest tightness, COPD, Possible paroxysmal atrial fibrillation Plan: Shortness of breath, could be multifactorial. A cardiogram done 06/12/2019 showed normal LV function. Very likely COPD exacerbation with borderline elevated BNP. Chest tightness, will likely require nuclear stress test as an outpatient COPD, treated for COPD exacerbation. Possible paroxysmal atrial fibrillation, will review the event monitor. Thank you for your consultation. Please call me if you have any questions. Jaz Molina MD, FACP, FACC, FSCAI, FHRS, CCDS Interventional Cardiology Cardiac Electrophysiology Vascular Medicine and Endovascular Interventions Focused Exam Lactate Level 06/12/19 06:04: Lactic Acid Level 1.88 Marta MOLINA MD Jun 13, 2019 5:52 pm
== END 2019-06-13 17:08 | disposition home or self-care (01) | DRG 189 ==
LOC: EDUNIT# 05:47 → ER 05:55 → 4TH 07:30
PROVIDERS: ADMIT Internal Medicine; ATTEND Internal Medicine
DX: J96.01 Acute respiratory failure with hypoxia (principal); J44.1 Chronic obstructive pulmonary disease with (acute) exacerbation; R09.02 Hypoxemia; I48.0 Paroxysmal atrial fibrillation; I10 Essential (primary) hypertension; G47.33 Obstructive sleep apnea (adult) (pediatric); Z87.891 Personal history of nicotine dependence
CPT/HCPCS: 36415; 36600; 71045; 80053; 81000; 82805; 83605; 83880; 84484; 85007; 85025; 85027; 85610; 85730; 87040; 87088; 93005; 93306; 94640; 94660; 94760; 94761; 96361; 96374; 96375

== ENCOUNTER 2019-08-03 09:36 | Outpatient (RCR) | payer MEDICARE ==
[~2019-08-03 09:36] MED LIST changes: +FLUT12AE4 IH; +HYDR-3820 PO; +PRED10TA22 PO; +RT-ALBUINH PO
[2019-08-15] MEDS ORDERED: CLON0.2T PO (09:11)
[2019-08-15] MEDS ORDERED: METO100T12 PO ×2 (09:11)
[2019-08-15] MEDS ORDERED: FLUT1BLS12 INH (09:11)
[2019-08-15] MEDS ORDERED: FURO40TA4 PO (09:11)
[2019-08-16] MEDS ORDERED: APIX5TAB PO (13:28)
[2019-08-16] MEDS ORDERED: DILT120C94 PO (13:28)
[2019-08-16] MEDS ORDERED: AMIO200T4 PO (13:48)
[2019-10-04] MEDS ORDERED: DILT-27 PO ×2 (15:55)
[2019-10-04] MEDS ORDERED: APIX5TAB PO ×2 (15:55)
[2019-10-04] MEDS ORDERED: AMIO200T4 PO ×2 (15:55)
[2019-10-04] MEDS ORDERED: ACET-2267 PO ×2 (16:02)
[2019-10-04] MEDS ORDERED: ALB0.5V NEB ×2 (16:02)
[2019-10-06] MEDS ORDERED: FURO80TA3 PO ×2 (08:51)
[2019-10-06] MEDS ORDERED: PRD20T PO (08:51)
[2019-10-06] MEDS ORDERED: POTA10TA10 PO ×2 (09:53)
[2019-11-01] MEDS ORDERED: PRED10TA22 PO ×2 (11:20)
== END 2019-11-01 | disposition home or self-care (01) ==
LOC: PULM 09:36
PROVIDERS: ATTEND Nurse Practitioner Family
DX: J43.9 Emphysema, unspecified (principal)
CPT/HCPCS: 99211

== ENCOUNTER 2019-08-14 12:27 | Inpatient (IN) | payer MEDICARE ==
[~2019-08-14] VITALS: Ht 172 cm; Wt 99.6 kg
[2019-08-14] VITALS (7 sets, daily range): BP systolic 102–144; BP diastolic 80–119
[2019-08-14] MEDS ORDERED: ASPIRIN 81 MG CHEW (CHILDREN'S ASA) PO ONE (13:00)
[2019-08-14] MEDS ORDERED: methylPREDNISolone 125 MG (Solu-MEDROL) VIAL IVP ONE (13:00)
[2019-08-14 13:02] LABS: BASOPHILS % (AUTO) 0 % (0-10); EOSINOPHILS # (AUTO) 0.1 10^3/uL (0.0-0.3); EOSINOPHILS % (AUTO) 1 % (0-10); HEMATOCRIT 41 % (40-54); HEMOGLOBIN 13.8 G/DL (13.3-17.7); LYMPHOCYTES # (AUTO) 1.6 X 10^3 (1.0-4.0); LYMPHOCYTES % (AUTO) 16 % (12-44); MEAN CORPUSCULAR HEMOGLOBIN 32 PG (25-34); MEAN CORPUSCULAR HGB CONC 33 G/DL (32-36); MEAN CORPUSCULAR VOLUME 96 FL (80-99); MEAN PLATELET VOLUME 11.6 FL (7.4-10.4); MONOCYTES # (AUTO) 1.1 X 10^3 (0.0-1.0); MONOCYTES % (AUTO) 11 % (0-12); NEUTROPHILS # (AUTO) 7.4 X 10^3 (1.8-7.8); NEUTROPHILS % (AUTO) 72 % (42-75); PLATELET COUNT 271 10^3/uL (130-400); RED CELL DISTRIBUTION WIDTH 14.8 % (10.0-14.5); WHITE BLOOD COUNT 10.3 10^3/uL (4.3-11.0)
[2019-08-14 13:08] LABS: INR 1.1 (0.8-1.4); PROTHROMBIN TIME PATIENT 14.7 SEC (12.2-14.7)
--- NOTE | 2019-08-14 13:11 | ED Respiratory ---
General Chief Complaint: Respiratory Problems Stated Complaint: SOB SINCE [place] Nursing Triage Note: TO TRIAGE WITH INCREASED SOA THAT IS WORSE AT NIGHT. HAS BEEN USING HIS OXYGEN MORE THEN NORMAL. Source: patient History of Present Illness Date Seen by Provider: Aug 14, 2019 Time Seen by Provider: 12:35 Initial Comments PT ARRIVES VIA POV FROM HOME C/O "COPD TO THE [facility]CE [place]" HOSPITALIZED IN [place], FOR RESPIRATORY DISTRESS/COPD EXACERBATION, AND WAS ON BIPAP PT STATES HE IS ON HOME O2, IS SUPPOSED TO BE USING IT ONLY AT NIGHT, BUT HAS BEEN USING IT "22/06" FOR THE LAST 2 WEEKS STATES "I BEEN FIGHTING IT REAL BAD FOR THE LAST 2 WEEKS" AND STATES "I'M BETTER TODAY THAN I'VE BEEN FOR WEEKS" SHORTNESS OF BREATH IS WORSE AT NIGHT, WHEN HE LAYS DOWN, AND OFTEN IS UP ALL NIGHT DUE TO INABILITY TO BREATHE NO CHEST PAIN NO COUGH NO FEVER NO INCREASE IN CHRONIC LEG SWELLING NO DIZZINESS NO PALPITATIONS STATES HE HAS BEEN USING ALBUTEROL NEBULIZER AND PRO AIR ALBUTEROL INHALER ( NO SPACER ) "MORE THAN I SHOULD" HAS USED ALBUTEROL NEBULIZER 3 TIMES TODAY, SINCE 0 THIS AM, LAST TIME WAS 30 MINUTES PRIOR TO ARRIVAL STATES HE HAS NOT FOLLOWED UP WITH ANYONE SINCE HE WAS DISMISSED FROM THE HOSPITAL WAS SUPPOSED TO FOLLOW UP WITH DR. HERNANDEZ IN THE OFFICE, AND GET A STRESS TEST, BUT HAS NOT WAS SUPPOSED TO FOLLOW UP WITH DR. STEVENS, BUT HAS NOT PT STATES HE WAS ALSO TOLD THAT HE HAD ATRIAL FIBRILLATION, BUT IS NOT ON ASPIRIN OR BLOOD THINNERS, OR ANY ANTIARRHYTHMIC. SAW DR. HERNANDEZ ONCE FOR THIS AND WORE A MONITOR "FOR A MONTH", BUT DID NOT FOLLOW UP WITH HIM IN THE OFFICE--THIS OCCURRED BEFORE HE WAS ADMITTED TO THE HOSPITAL IN [place]. PT APPARENTLY DID NOT HAVE ANY EPISODES OF ATRIAL FIBRILLATION WHILE HE WAS HOSPITALIZED. PT SMOKED 1 PPD X 50 YEARS, QUIT 6-7 YEARS AGO CONTINUES TO DRINK AT LEAST A 6 PACK / DAY PT ALSO SMOKES MARIJUANA ON A REGULAR BASIS, "SINCE THE S" PCP: DR. AVILA Allergies and Home Medications Allergies Coded Allergies: Sulfa (Sulfonamide Antibiotics) (Verified Allergy, Unknown, 06/12/19) Home Medications Albuterol Sulfate 8.5 Gm Hfa.aer.ad, 1-2 PUFF IH Q4H PRN for WHEEZING, (Reported) Amlodipine Besylate 10 Mg Tablet, 10 MG PO DAILY, (Reported) Clonidine Hcl 0.2 Mg Tablet, 0.2 MG PO Q8H, (Reported) Enalapril Maleate 20 Mg Tablet, 20 MG PO DAILY, (Reported) Fluticasone/Salmeterol 12 Gm Hfa.aer.ad, 2 PUFF IH BID@08,20 Prescribed by: PATRICIA REID on 06/13/19 1117 Furosemide 40 Mg Tablet, 40 MG PO DAILY, (Reported) Hydrocodone/Acetaminophen 1 Each Tablet, 1 TAB PO Q4H PRN for PAIN-MODERATE, (Reported) Indomethacin 50 Mg Capsule, 50 MG PO DAILY PRN for PAIN, (Reported) Metoprolol Succinate 100 Mg Tab.sr.24h, 100 MG PO BID, (Reported) Prednisone 10 Mg Tab.ds.pk, 10 MG PO DAILY Take 6 tabs(60mg)daily,decrease by 1 tab(10MG)daily. Prescribed by: PATRICIA REID on 06/13/19 1117 Patient Home Medication List Home Medication List Reviewed: Yes Review of Systems Review of Systems Constitutional: no symptoms reported; No chills, No diaphoresis, No dizziness, No fever EENTM: no symptoms reported Respiratory: see HPI; No cough; dyspnea on exertion, orthopnea, short of breat h, wheezing Cardiovascular: No chest pain; edema; No palpitations, No syncope Gastrointestinal: no symptoms reported; No nausea, No vomiting Genitourinary: no symptoms reported Musculoskeletal: see HPI (LEG SWELLING) Skin: no symptoms reported Psychiatric/Neurological: No Symptoms Reported Hematologic/Lymphatic: No Symptoms Reported Immunological/Allergic: no symptoms reported Past Wrhtfij-Yqnhdl-Jezgab Hx Patient Social History Alcohol Use: Regular Use (AT LEAST A 6 PACK A DAY, EVERY DAY) Recreational Drug Use: Yes (THC ON REGULAR BASIS SINCE THE ' ) Drug of Choice: THC ON A REGULAR BASIS, SINCE THE S Smoking Status: Former Smoker (1 PPD X 50 YEARS, STARTED AT AGE 17) Type Used: Cigarettes Former Smoker, Quit: Jun 01, 2013 Recent Foreign Travel: No Contact w/Someone Who Travel: No Recent Infectious Disease Expo: No Recent Hopitalizations: No Immunizations Up To Date Tetanus Booster (TDap): Unknown PED Vaccines UTD: Yes Date of Pneumonia Vaccine: Sep 14, 2014 Seasonal Allergies Seasonal Allergies: No Past Medical History Surgeries: Yes (RIGHT SHOULDER SURGERY X 2; LEFT KNEE SURGERY X 2; RIGHT KNEE SURGERY X 1) Appendectomy, Orthopedic Respiratory: Yes (O2 AT HS) COPD Cardiac: Yes (INTERMITTENT ATRIAL FIBRILLATION) Atrial Fibrillation, Chronic Edema/Swelling, Hypertension, Palpitations Neurological: No Reproductive Disorders: No Genitourinary: No Gastrointestinal: No Musculoskeletal: Yes (BILATERAL KNEE SURGERIES, RIGHT SHOULDER SURGERIES) Arthritis, Chronic Back Pain Endocrine: No HEENT: No Cancer: No Psychosocial: No Integumentary: No Blood Disorders: No Family Medical History Asbestosis FH: breast cancer Physical Exam Vital Signs - First Documented 08/14/19 12:33 Temp 37.2 Pulse 141 Resp 20 B/P (MAP) 139/121 (127) Pulse Ox 97 O2 Delivery Nasal Cannula O2 Flow Rate 2.00 Capillary Refill : Less Than 3 Seconds Height: 5'9.00" Weight: 213lbs. 0.0oz. 96.492300cj; 215.00 BMI Method:Stated General Appearance: WD/WN, other (PT WALKS IN ON OWN, TALKING NON-STOP, BUT IS MILDLY DYSPNEIC ON ARRIVAL. ) HEENT: PERRL/EOMI Respiratory: respiratory distress (MILD), decreased breath sounds (IN BASES), accessory muscle use, other (DYSPNEA RESOLVED AFTER HE RESTED FOR AWHILE AND WAS PLACED ON O2) Cardiovascular: no JVD, no murmur, tachycardia (HEART RATE IN 140'S ON ARRIVAL, THEN QUICKLY DOWN TO 90'S-100'S AFTER HE WAS AT REST FOR AWHILE. ), irregularly irregular Gastrointestinal: non tender, soft Extremities: no calf tenderness, normal capillary refill, pedal edema (2+ BILATERALLY) Neurologic/Psychiatric: umbrella tipper II-XII nml as tested, no motor/sensory deficits, alert, normal mood/affect, oriented x 3 Skin: normal color, warm/dry Progress/Results/Core Measures Suspected Sepsis Recent Fever Within 48 Hours: No Infection Criteria Present: Suspected New Infection New/Unexplained Altered Menta: No Sepsis Screen: No Definite Risk SIRS Temperature: Pulse: 141 Respiratory Rate: 20 Laboratory Tests 08/14/19 12:49: White Blood Count 10.3 Blood Pressure 139 /121 Mean: 127 Laboratory Tests 08/14/19 12:49: Creatinine 0.87, INR Comment 1.1, Platelet Count 271, Total Bilirubin 1.0 Results/Orders Lab Results Laboratory Tests Test 08/14/19 12:49 Range/Units White Blood Count 10.3 4.3-11.0 10^3/uL Red Blood Count 4.29 L 4.35-5.85 10^6/uL Hemoglobin 13.8 13.3-17.7 G/DL Hematocrit 41 40-54 % Mean Corpuscular Volume 96 80-99 FL Mean Corpuscular Hemoglobin 32 25-34 PG Mean Corpuscular Hemoglobin Concent 33 32-36 G/DL Red Cell Distribution Width 14.8 H 10.0-14.5 % Platelet Count 271 130-400 10^3/uL Mean Platelet Volume 11.6 H 7.4-10.4 FL Neutrophils (%) (Auto) 72 42-75 % Lymphocytes (%) (Auto) 16 12-44 % Monocytes (%) (Auto) 11 0-12 % Eosinophils (%) (Auto) 1 0-10 % Basophils (%) (Auto) 0 0-10 % Neutrophils # (Auto) 7.4 1.8-7.8 X 10^3 Lymphocytes # (Auto) 1.6 1.0-4.0 X 10^3 Monocytes # (Auto) 1.1 H 0.0-1.0 X 10^3 Eosinophils # (Auto) 0.1 0.0-0.3 10^3/uL Basophils # (Auto) 0.0 0.0-0.1 10^3/uL Prothrombin Time 14.7 12.2-14.7 SEC INR Comment 1.1 0.8-1.4 Activated Partial Thromboplast Time 30 24-35 SEC Sodium Level 141 135-145 MMOL/L Potassium Level 3.7 3.6-5.0 MMOL/L Chloride Level 107 98-107 MMOL/L Carbon Dioxide Level 23 21-32 MMOL/L Anion Gap 11 5-14 MMOL/L Blood Urea Nitrogen 11 7-18 MG/DL Creatinine 0.87 0.60-1.30 MG/DL Estimat Glomerular Filtration Rate > 60 BUN/Creatinine Ratio 13 Glucose Level 91 70-105 MG/DL Calcium Level 9.5 8.5-10.1 MG/DL Corrected Calcium 9.5 8.5-10.1 MG/DL Magnesium Level 2.1 1.6-2.4 MG/DL Total Bilirubin 1.0 0.1-1.0 MG/DL Aspartate Amino Transf (AST/SGOT) 17 5-34 U/L Alanine Aminotransferase (ALT/SGPT) 15 0-55 U/L Alkaline Phosphatase 74 40-136 U/L Total Creatine Kinase 105 30-200 U/L Creatine Kinase MB 3.9 <6.6 NG/ML Myoglobin 91.8 10.0-92.0 NG/ML Troponin I < 0.028 <0.028 NG/ML B-Type Natriuretic Peptide 635.5 H <100.0 PG/ML Total Protein 6.5 6.4-8.2 GM/DL Albumin 4.0 3.2-4.5 GM/DL TSH Stanton Testing 0.85 0.35-4.94 UIU/ML Serum Alcohol < 10 <10 MG/DL My Orders Orders - HIGINIO SHIPLEY DO Ed Iv/Invasive Line Start (08/14/19 12:52) Ekg Tracing (08/14/19 12:52) O2 (08/14/19 12:52) Monitor-Rhythm Ecg Trace Only (08/14/19 12:52) Chest 1 View, Ap/Pa Only (08/14/19 12:52) Alcohol (08/14/19 12:52) BNP (08/14/19 12:52) Cbc With Automated Diff (08/14/19 12:52) Comprehensive Metabolic Panel (08/14/19 12:52) Creatine Kinase (08/14/19 12:52) Creatine Kinase Mb (08/14/19 12:52) Drug Screen Stat (Urine) (08/14/19 12:52) Magnesium (08/14/19 12:52) Protime With Inr (08/14/19 12:52) Partial Thromboplastin Time (08/14/19 12:52) Thyroid Analyzer (08/14/19 12:52) Ua Culture If Indicated (08/14/19 12:52) Myoglobin Serum (08/14/19 12:52) Troponin I (08/14/19 12:52) Methylprednisolone Sod Succ (Solu-Medrol (08/14/19 13:00) Aspirin Chewable Tablet (Baby Aspirin Ch (08/14/19 13:00) Enoxaparin Injection (Lovenox Injection) (08/14/19 13:15) Furosemide Injection (Lasix Injection) (08/14/19 14:00) Medications Given in ED Current Medications Medications Dose Ordered Sig/Christi Route Start Time Stop Time Status Last Admin Dose Admin Aspirin 324 mg ONCE ONCE PO 08/14/19 13:00 08/14/19 13:01 DC 08/14/19 13:09 324 MG Enoxaparin Sodium 100 mg ONCE ONCE SC 08/14/19 13:15 08/14/19 13:16 DC 08/14/19 13:14 100 MG Furosemide 80 mg ONCE ONCE IVP 08/14/19 14:00 08/14/19 14:01 DC 08/14/19 14:04 80 MG Methylprednisolone Sodium Succinate 125 mg ONCE ONCE IVP 08/14/19 13:00 08/14/19 13:01 DC 08/14/19 13:09 125 MG Vital Signs/I&O 08/14/19 08/14/19 08/14/19 12:33 12:33 13:05 Temp 37.2 Pulse 141 114 Resp 20 B/P (MAP) 139/121 (127) Pulse Ox 97 O2 Delivery Nasal Cannula O2 Flow Rate 2.00 Capillary Refill : Less Than 3 Seconds Blood Pressure Mean: 127 Progress Note : Progress Note PT PLACED ON O2 ON ARRIVAL, PT IS DYSPNEIC ON ARRIVAL INITIAL HR IN 140'S, IN ATRIAL FIBRILLATION WITH RVR. RATE WENT DOWN TO 90'S TO 100'S SHORTLY AFTER ARRIVAL, ONCE HE GOT ONTO ER CART AND RESTED FOR A SHORT PERIOD OF TIME NO COMPLAINTS DURING REMAINDER OF ER STAY. NO DETERIORATION IN PT'S CONDITION DURING ER STAY ECG Initial ECG Impression Date: Aug 14, 2019 Initial ECG Impression Time: 13:01 Initial ECG Rate: 108 Initial ECG Rhythm: A Fib/Flutter (RBB, LAFB, PVC'S) Initial ECG Comparisson: Changed Diagnostic Imaging Comments CXR--SMALL RIGHT PLEURAL EFFUSION, SMALL OPACITY IN RIGHT LUNG BASE--ATELECTASIS OR INFILTRATE, CARDIOMEGALY, LARGE LUNG VOLUMES--PER RADIOLOGIST REPORT Reviewed: Reviewed by Me Departure Communication (Admissions) 1400--SPOKE WITH DR. HERNANDEZ, FIELD SALES REPRESENTATIVE. HE ADVISES TO START PT ON ELIQUIS 5 MG BID, AND CARDIZEM CD 120 MG, AND WILL GET ECHO IN THE MORNING. 1402--SPOKE WITH DR. REID, HOSPITALIST, ACCEPTS PT FOR ADMIT Impression Primary Impression: Atrial fibrillation Additional Impressions: CHF (congestive heart failure) COPD (chronic obstructive pulmonary disease) Marijuana smoker, continuous Disposition: ADMITTED INPATIENT Condition: Stable Admissions Decision to Admit Reason: Admit from ER (General) Decision to Admit/Date: Aug 14, 2019 Time/Decision to Admit Time: 14:00 Departure-Patient Inst. Referrals: ISAI AVILA MD (PCP/Family) Primary Care Physician HIGINIO SHIPLEY DO Aug 14, 2019 13:11
[2019-08-14] MEDS ORDERED: ENOXAPARIN 100 MG/1 ML (LOVENOX) SYR SC ONE (13:15)
[2019-08-14 13:19] LABS: ALANINE AMINOTRANSFERASE 15 U/L (0-55); ALKALINE PHOSPHATASE 74 U/L (40-136); BUN/CREATININE RATIO 13; CALCIUM 9.5 MG/DL (8.5-10.1); CARBON DIOXIDE 23 MMOL/L (21-32); CHLORIDE 107 MMOL/L (98-107); CREATINE KINASE 105 U/L (30-200); CREATININE SERUM 0.87 MG/DL (0.60-1.30); GFR ESTIMATED > 60; GLUCOSE 91 MG/DL (70-105); MAGNESIUM 2.1 MG/DL (1.6-2.4); POTASSIUM 3.7 MMOL/L (3.6-5.0); SODIUM 141 MMOL/L (135-145); TOTAL PROTEIN 6.5 GM/DL (6.4-8.2)
[2019-08-14 13:39] LABS: CREATINE KINASE MB 3.9 NG/ML (<6.6); TSH (THYROID ANALYZER) 0.85 UIU/ML (0.35-4.94)
--- NOTE | 2019-08-14 13:57 | Diagnostic Imaging Report ---
PATIENT HISTORY: COPD. TECHNIQUE: Frontal view of the chest COMPARISON: 06/13/2019 FINDINGS: Lung volumes are large. There is a new airspace opacity at the right costophrenic angle. There is a small right pleural effusion. There is mild cardiomegaly. No pneumothorax is seen. IMPRESSION: 1. Small right pleural effusion with new airspace opacity at the right lung base, may represent atelectasis or infiltrate. 2. Mild cardiomegaly with large lung volumes. Dictated by: Dictated on workstation # [id number]
[2019-08-14] MEDS ORDERED: FUROSEMIDE 40 MG/4 ML INJ (LASIX) IVP ONE (14:00)
[2019-08-14] MEDS ORDERED: DILTIAZEM 120 MG (CARDIZEM CD) CAP PO SCH (14:15)
--- NOTE | 2019-08-14 14:46 | NUR ---
VOIDED [id number]
[2019-08-14 14:51] LABS: BILIRUBIN,URINE NEGATIVE (NEGATIVE); CLARITY,URINE CLEAR; COLOR,URINE YELLOW; GLUCOSE, URINE (UA) NEGATIVE (NEGATIVE); KETONES,URINE 1+ (NEGATIVE); LEUKOCYTE ESTERASE ,URINE NEGATIVE (NEGATIVE); NITRITE,URINE NEGATIVE (NEGATIVE); PH,URINE 7 (5-9); PROTEIN,URINE NEGATIVE (NEGATIVE); UROBILINOGEN,URINE NORMAL (NORMAL)
[2019-08-14 14:59] LABS: BACTERIA,URINE NEGATIVE /HPF
[2019-08-14 15:06] LABS: AMPHETAMINE SCREEN, URINE NEGATIVE (NEGATIVE); BENZODIAZEPINES SCREEN URINE NEGATIVE (NEGATIVE); COCAINE SCREEN URINE NEGATIVE (NEGATIVE); METHAMPHETAMINE SCREEN URINE S NEGATIVE (NEGATIVE)
[2019-08-14 15:07] LABS: BARBITURATE SCREEN URINE NEGATIVE (NEGATIVE); CANNABINOID SCREEN, URINE POSITIVE (NEGATIVE); METHADONE STAT NEGATIVE (NEGATIVE); OPIATE SCREEN URINE NEGATIVE (NEGATIVE); OXYCODONE STAT NEGATIVE (NEGATIVE); PROPOXYPHENE STAT NEGATIVE (NEGATIVE); TRICYCLIC ANTIDEPRESSANTS SCRE NEGATIVE (NEGATIVE)
[2019-08-14] MEDS ORDERED: RT-ALBUTEROL/IPRATROPIUM 3 ML (DUONEB) VIAL INH PRN (16:15)
[2019-08-14] MEDS: RT-ALBUTEROL/IPRATROPIUM 3 ML (DUONEB) VIAL INH SCH ×2 (19:02→21:52)
[2019-08-14] MEDS: APIXABAN 5 MG (ELIQUIS) TABLET PO SCH (20:25)
[2019-08-14] MEDS ORDERED: FUROSEMIDE 40 MG/4 ML INJ (LASIX) IV SCH (21:00)
[2019-08-15] VITALS (19 sets, daily range): BP systolic 92–141; BP diastolic 48–115
[2019-08-15] MEDS: RT-ALBUTEROL/IPRATROPIUM 3 ML (DUONEB) VIAL INH SCH ×6 (01:55→22:50)
[2019-08-15 03:24] LABS: BASOPHILS % (AUTO) 0 % (0-10); EOSINOPHILS % (AUTO) 0 % (0-10); HEMATOCRIT 44 % (40-54); HEMOGLOBIN 14.5 G/DL (13.3-17.7); LYMPHOCYTES # (AUTO) 0.4 X 10^3 (1.0-4.0); LYMPHOCYTES % (AUTO) 7 % (12-44); MEAN CORPUSCULAR HEMOGLOBIN 31 PG (25-34); MEAN CORPUSCULAR HGB CONC 33 G/DL (32-36); MEAN CORPUSCULAR VOLUME 96 FL (80-99); MONOCYTES # (AUTO) 0.3 X 10^3 (0.0-1.0); MONOCYTES % (AUTO) 4 % (0-12); NEUTROPHILS # (AUTO) 5.6 X 10^3 (1.8-7.8); NEUTROPHILS % (AUTO) 89 % (42-75); PLATELET COUNT 234 10^3/uL (130-400); RED CELL DISTRIBUTION WIDTH 14.7 % (10.0-14.5); WHITE BLOOD COUNT 6.3 10^3/uL (4.3-11.0)
[2019-08-15 03:48] LABS: ALBUMIN 4.3 GM/DL (3.2-4.5); BILIRUBIN,TOTAL 0.8 MG/DL (0.1-1.0); CALCIUM 9.6 MG/DL (8.5-10.1); CREATININE SERUM 1.19 MG/DL (0.60-1.30); POTASSIUM 3.2 MMOL/L (3.6-5.0); TOTAL PROTEIN 6.9 GM/DL (6.4-8.2)
[2019-08-15] MEDS: POTASSIUM CL 10MEQ/50ML IVPB 50 ML IV SCH ×2 (05:46→07:18)
[2019-08-15 05:48] LABS: LYMPHOCYTES % (MANUAL) 6 %; MONOCYTES % (MANUAL) 1 %; NEUTROPHILS % (MANUAL) 93 %
[2019-08-15] MEDS ORDERED: NS IV 500 ML 500 ML ONE (05:51)
--- NOTE | 2019-08-15 06:01 | Pulmonary Consultation ---
RD SR,MED STUDENT 08/15/19 0601: History of Present Illness History of Present Illness Date of Consultation 08/15/19 05:52 Time Seen by Provider: 05:53 Date of Admission Reason for Visit: SOB History of Present Illness Patient is a 73 y/o male that presented to the ER yesterday d/t progressive SOB at night. SOB started 2wks ago and had gotten progressively worse and it reminded him of a similar episode back in May. SOB is worse at [facility] when he tries to lie down. He has a rescue inhaler and an albuterol nebulizer that he has not been compliment with taking until he started feeling short of breath. He says that he is normal on 2L of oxygen at night but for the past 2wks he as been using 5L of oxygen 22/06. He says that he has never had any heart issues but does have HTN. Patient is overall a poor historian. ROS - denies fever, chills, headache, nausea, vomiting, stomach pain, chest pain, palpitations - admits to SOB and cough Allergies and Home Medications Allergies Coded Allergies: Sulfa (Sulfonamide Antibiotics) (Verified Allergy, Unknown, 06/12/19) Home Medications Albuterol Sulfate 8.5 Gm Hfa.aer.ad, 1-2 PUFF IH Q4H PRN for WHEEZING, (Reported) Amiodarone HCl 200 Mg Tablet, 200 MG PO BID Prescribed by: CATINA CARBAJAL on 08/16/19 1348 Amlodipine Besylate 10 Mg Tablet, 10 MG PO DAILY, (Reported) Apixaban 5 Mg Tablet, 5 MG PO BID Prescribed by: DEMARIO TO on 08/16/19 1328 Diltiazem HCl 120 Mg Cap.er.24h, 120 MG PO DAILY@0900 Prescribed by: DEMARIO TO on 08/16/19 1328 Enalapril Maleate 20 Mg Tablet, 20 MG PO DAILY, (Reported) Fluticasone Propion/Salmeterol 1 Each Blst.w.dev, 1 PUFF INH BID, (Reported) Furosemide 40 Mg Tablet, 40 MG PO DAILY, (Reported) Hydrocodone/Acetaminophen 1 Each Tablet, 1 TAB PO Q4H PRN for PAIN-MODERATE, (Reported) Indomethacin 50 Mg Capsule, 50 MG PO DAILY PRN for GOUT PAIN, (Reported) Metoprolol Tartrate 100 Mg Tablet, 100 MG PO BID, (Reported) Past Uucbdca-Dffobe-Cgfvhc Hx Patient Social History Alcohol Use: Regular Use (AT LEAST A 6 PACK A DAY, EVERY DAY) Recreational Drug Use: Yes (THC ON REGULAR BASIS SINCE THE 1960S' ) Drug of Choice: THC ON A REGULAR BASIS, SINCE THE S Smoking Status: Former Smoker (1 PPD X 50 YEARS, STARTED AT AGE 17) Type Used: Cigarettes Former Smoker, Quit: Jun 01, 2013 Recent Foreign Travel: No Contact w/Someone Who Travel: No Recent Infectious Disease Expo: No Recent Hopitalizations: No Immunizations Up To Date Tetanus Booster (TDap): Unknown PED Vaccines UTD: Yes Date of Pneumonia Vaccine: Sep 14, 2014 Seasonal Allergies Seasonal Allergies: No Past Medical History Surgeries: Yes (RIGHT SHOULDER SURGERY X 2; LEFT KNEE SURGERY X 2; RIGHT KNEE SURGERY X 1) Appendectomy, Orthopedic Respiratory: Yes (O2 AT HS) COPD Cardiac: Yes (INTERMITTENT ATRIAL FIBRILLATION) Atrial Fibrillation, Chronic Edema/Swelling, Hypertension, Palpitations Neurological: No Reproductive Disorders: No Genitourinary: No Gastrointestinal: No Musculoskeletal: Yes (BILATERAL KNEE SURGERIES, RIGHT SHOULDER SURGERIES) Arthritis, Chronic Back Pain Endocrine: No HEENT: No Cancer: No Psychosocial: No Integumentary: No Blood Disorders: No Family Medical History Asbestosis FH: CABG (coronary artery bypass surgery) 19 FATHER FH: breast cancer 19 MOTHER FH: uterine cancer 19 MOTHER Hypertension 19 FATHER Review of Systems Constitutional: No: Fever, Chills Respiratory: Cough, Dry, Shortness of breath; No: SOB with excertion Cardiovascular: Edema; No: Chest Pain, Palpitations Gastrointestinal: No: Nausea, Vomiting, Abdominal Pain Neurological: No: Numbness Sepsis Event Evaluation Height, Weight, BMI Height: 5'9.00" Weight: 213lbs. 0.0oz. [id number]; 33.66 BMI Method:Stated Exam Exam Vital Signs Date Time Temp Pulse Resp B/P (MAP) Pulse Ox O2 Delivery O2 Flow Rate FiO2 08/15/19 04:00 131 22 124/108 96 Nasal Cannula 1.00 08/15/19 02:18 154 19 135/96 94 Nasal Cannula 1.00 08/15/19 02:00 128 9 100 Nasal Cannula 1.00 08/15/19 01:00 108 18 132/106 95 Nasal Cannula 1.00 08/15/19 01:00 108 08/15/19 00:00 112 16 122/96 92 Nasal Cannula 1.00 08/14/19 23:01 118 22 127/97 94 Nasal Cannula 1.00 08/14/19 22:00 112 10 141/92 100 Nasal Cannula 1.00 08/14/19 21:52 95 Nasal Cannula 1.00 08/14/19 21:20 94 Nasal Cannula 2.00 08/14/19 21:00 129 21 144/95 92 Nasal Cannula 2.00 08/14/19 20:04 106 22 119/88 97 Nasal Cannula 2.00 08/14/19 20:00 36.5 08/14/19 19:00 99 08/14/19 16:00 94 Room Air 08/14/19 16:00 94 Room Air 2.00 08/14/19 16:00 36.0 130 94 21 08/14/19 16:00 135 15 102/80 93 Nasal Cannula 2.00 08/14/19 15:00 Nasal Cannula 2.00 08/14/19 15:00 36.0 104 20 139/119 96 Nasal Cannula 2.00 2.00 08/14/19 15:00 36.0 104 20 139/119 96 Nasal Cannula 2.00 08/14/19 14:46 92 18 134/104 96 Nasal Cannula 2.00 08/14/19 13:05 114 08/14/19 12:33 Nasal Cannula 2.00 08/14/19 12:33 37.2 141 20 139/121 (127) 97 I & O 08/15/19 07:00 Intake Total 1200 ml Output Total 1725 ml Balance -525 ml Height & Weight Height: 5'9.00" Weight: 213lbs. 0.0oz. 96.467042xr; 33.66 BMI Method:Stated General Appearance: No Apparent Distress, WD/WN, Chronically ill Respiratory: Chest Non Tender, No Accessory Muscle Use, No Respiratory Distress, Decreased Breath Sounds Cardiovascular: No Edema, No JVD, Normal Peripheral Pulses, Irregularly Irregular Capillary Refill: Less Than 3 Seconds Peripheral Pulses: 2+ Dorsalis Pedis (R), 2+ Left Dors-Pedis (L), 2+ Radial Pulses (R), 2+ Radial Pulses (L) Gastrointestinal: normal bowel sounds, non tender, soft Extremity: Non Tender, No Calf Tenderness, Pedal Edema Neurologic/Psychiatric: Alert, Oriented x3, No Motor/Sensory Deficits, Normal Mood/Affect Skin: Normal Color, Warm/Dry Lymphatic: No Adenopathy Results Lab Laboratory Tests 08/14/19 12:49 08/15/19 03:11 Assessment/Plan Assessment/Plan COPD exacerabation - Breathing treatments - education on taking Rx as prescribed - outpatient follow up A-fib - consult cardiology - start eliquis and aspirin rate control with diltiazem Anion gap acidosis - ABG - lactate levels - consider and ask about non-ethanol alcohol exposure/consumption - consider other causes on anion gap acidosis Hypokalemia - 50mEq of KCl IV - recheck mag and phos paroxysmal nocturnal dyspnea - outpatient followup with sleep study (says that one is scheduled for later this week) CHF - Cardiology consult - lasix - spirolactone for home meds? - inform patient that he has CHF HTN - diltiazem JASON OCHOA DO 09/06/19 0920: Allergies and Home Medications Allergies Coded Allergies: Sulfa (Sulfonamide Antibiotics) (Verified Allergy, Unknown, 06/12/19) Home Medications Albuterol Sulfate 8.5 Gm Hfa.aer.ad, 1-2 PUFF IH Q4H PRN for WHEEZING, (Reported) Amiodarone HCl 200 Mg Tablet, 200 MG PO BID Prescribed by: CATINA CARBAJAL on 08/16/19 1348 Amlodipine Besylate 10 Mg Tablet, 10 MG PO DAILY, (Reported) Apixaban 5 Mg Tablet, 5 MG PO BID Prescribed by: DEMARIO TO on 08/16/19 1328 Diltiazem HCl 120 Mg Cap.er.24h, 120 MG PO DAILY@0900 Prescribed by: DEMARIO TO on 08/16/19 1328 Enalapril Maleate 20 Mg Tablet, 20 MG PO DAILY, (Reported) Fluticasone Propion/Salmeterol 1 Each Blst.w.dev, 1 PUFF INH BID, (Reported) Furosemide 40 Mg Tablet, 40 MG PO DAILY, (Reported) Hydrocodone/Acetaminophen 1 Each Tablet, 1 TAB PO Q4H PRN for PAIN-MODERATE, ( Reported) Indomethacin 50 Mg Capsule, 50 MG PO DAILY PRN for GOUT PAIN, (Reported) Metoprolol Tartrate 100 Mg Tablet, 100 MG PO BID, (Reported) Past Lvuenhm-Utxxgg-Cxwfhp Hx Family Medical History Asbestosis FH: CABG (coronary artery bypass surgery) 19 FATHER FH: breast cancer 19 MOTHER FH: uterine cancer 19 MOTHER Hypertension 19 FATHER Review of Systems Time Seen by Provider: 09:19 Exam Exam General Appearance: No Apparent Distress, WD/WN, Chronically ill Respiratory: Chest Non Tender, No Accessory Muscle Use, No Respiratory Distress, Decreased Breath Sounds Cardiovascular: No Edema, No JVD, Normal Peripheral Pulses, Irregularly Irregular Gastrointestinal: normal bowel sounds, non tender, soft Extremity: Non Tender, No Calf Tenderness, Pedal Edema Neurologic/Psychiatric: Alert, Oriented x3, No Motor/Sensory Deficits, Normal Mood/Affect Skin: Normal Color, Warm/Dry Lymphatic: No Adenopathy Assessment/Plan Assessment/Plan COPD exacerabation - Breathing treatments - education on taking Rx as prescribed - outpatient follow up A-fib - consult cardiology - start eliquis and aspirin rate control with diltiazem Anion gap acidosis - ABG - lactate levels - consider and ask about non-ethanol alcohol exposure/consumption - consider other causes on anion gap acidosis Hypokalemia - 50mEq of KCl IV - recheck mag and phos paroxysmal nocturnal dyspnea - outpatient followup with sleep study (says that one is scheduled for later this week) CHF - Cardiology consult - lasix - spirolactone for home meds? - inform patient that he has CHF HTN - diltiazem Supervisory-Addendum Brief Verification & Attestation Participated in pt care: history Personally performed: exam Care discussed with: Medical Student Procedures: n/a Verification and Attestation of Medical Student E/M Service A medical student performed and documented this service in my presence. I reviewed and verified all information documented by the medical student and made modifications to such information, when appropriate. I personally performed the physical exam and medical decision making. Jason Ochoa, Sep 06, 2019,09:20 RD SR,MED STUDENT Aug 15, 2019 06:01 JASON OCHOA DO Sep 06, 2019 09:20
[2019-08-15] MEDS ORDERED: ONDANSETRON 4 MG/2 ML (SDV) Z0FRAN ONE (06:08)
[2019-08-15] MEDS ORDERED: ONDANSETRON 4 MG/2 ML (SDV) Z0FRAN IVP PRN (06:15)
--- NOTE | 2019-08-15 08:02 | Diagnostic Imaging Report ---
INDICATION: Congestive heart failure, atrial fibrillation, hypoxia followup. TECHNIQUE: Single view chest at 3:31 AM. CORRELATION STUDY: 08/14/2019 FINDINGS: Cardiac enlargement persists with vasculature stable. Blunting of the right costophrenic angle with small right pleural effusion. Slight increasing areas of atelectasis about the right lung base. Prior right rotator cuff surgery. IMPRESSION: 1. Cardiac enlargement without overt failure. 2. Small right pleural effusion with slight increasing atelectasis at the right lung base. Dictated by: Dictated on workstation # [id number]
[2019-08-15] MEDS ORDERED: KCL 20 MEQ TAB (K-DUR) PO NR (08:45)
[2019-08-15] MEDS ORDERED: CLON0.2T PO (09:11)
[2019-08-15] MEDS ORDERED: FURO40TA4 PO (09:11)
[2019-08-15] MEDS ORDERED: FLUT1BLS12 INH (09:11)
[2019-08-15] MEDS ORDERED: METO100T12 PO (09:11)
--- NOTE | 2019-08-15 09:12 | NUR ---
WENT OVER THE EXT MED HX WITH THE PATIENT. HE VERIFIED HOW HE TAKES THEM. HE STATES HE HAS 5 MEDICATIONS HE TAKES EVERY DAY. THEN HE HAS HYDROCODONE AND INDOMETHACIN NEEDED AND 2 INHALERS. HE STATES HE DOES NOT TAKE ANYTHING OTC.
[2019-08-15] MEDS ORDERED: AMIODARONE FOR BOLUS 150 MG in D5W 100 ML IVPB 100 ML IV ONE (09:15)
[2019-08-15] MEDS ORDERED: DILTIAZEM IV FOR DRIP 125 MG in NS (IVPB) 100 ML IV SCH (09:15)
[2019-08-15] MEDS: AMIODARONE INJECTION 450 MG in D5W IV SOLUTION (EXCEL) 250 ML IV SCH ×2 (10:42→19:05)
--- NOTE | 2019-08-15 11:00 | NUR ---
Pastoral care visit.
[2019-08-15] MEDS: APIXABAN 5 MG (ELIQUIS) TABLET PO SCH ×2 (11:14→20:22)
[2019-08-15] MEDS: ASPIRIN E.C. 81 MG (ECOTRIN) TAB PO SCH (11:14)
[2019-08-15] MEDS: DILTIAZEM 120 MG (CARDIZEM CD) CAP PO SCH ×2 (11:23→18:13)
[2019-08-15] MEDS ORDERED: LIDOCAINE 2% VISCOUS 15 ML UDC PO NR (15:00)
[2019-08-15] MEDS ORDERED: CATHETER FLUSH 10 ML SYR IV PRN (15:15)
[2019-08-15] MEDS ORDERED: proPOfol 200 MG/20 ML (DIPRIVAN) VIAL IV ONE (16:35)
--- NOTE | 2019-08-15 17:28 | Consultation-Cardiology ---
HPI-Cardiology Cardiology Consultation: Date of Consultation 08/15/19 Date of Admission Attending Physician Win Verduzco MD Admitting Physician Win Verduzco MD Consulting Physician Marta MOLINA MD HPI: Time Seen by a Provider: 09:00 Chief Complaint: Shortness of breath palpitations This is a 73-year-old gentleman who has history of COPD and is on home oxygen. He complains of worsening shortness of breath. He denies any chest pain, cough, palpitations. I saw him in May as an inpatient consultation. I had recommended an event monitor previously and follow-up in the office that he did not follow-up. There is unclear history of paroxysmal atrial fibrillation. He has smoked all his life and quit 6-7 years ago. Still continues to have significant alcohol use. Also frequent use of marijuana. Review of Systems-Cardiology Review of Systems Constitutional: As described under HPI; No As described under HPI, No no symptoms reported, No chills, No fever, No lightheadedness Eyes: No As described under HPI, No no symptoms reported, No blindness, No blurred vision, No contact lenses, No drainage, No decreased acuity, No foreign body sensation, No pain, No vision change Ears/Nose/Throat: No As described under HPI, No no symptoms reported, No chronic hearing loss, No ear discharge, No ear pain, No nasal drainage, No ulcerations Respiratory: No no symptoms reported; As described under HPI; No As described under HPI, No cough, No orthopnea; shortness of breath; No SOB with excertion Cardiovascular: No no symptoms reported; As described under HPI; No As described under HPI, No chest pain, No edema; irregular heart rate; No lightheadedness; palpitations Gastrointestinal: No no symptoms reported, No As described under HPI, No abdomen distended, No abdominal pain, No blood streaked bowels, No constipation, No diarrhea, No nausea, No vomiting, No stool coloration changes Genitourinary: No As described under HPI, No burning, No dysuria, No discharge, No frequency, No flank pain, No hematuria, No urgency Skin: No rash, No skin related problems, No ulcerations Psychiatric/Neurological: No anxiety, No depression, No seizure, No focal weakness, No syncope Hematologic: No bleeding abnormalities NVA-Oncqcn-Gpjwed Hx Patient Social History Alcohol Use: Regular Use (AT LEAST A 6 PACK A DAY, EVERY DAY) Recreational Drug Use: Yes (THC ON REGULAR BASIS SINCE THE ' ) Drug of Choice: THC ON A REGULAR BASIS, SINCE THE S Smoking Status: Former Smoker (1 PPD X 50 YEARS, STARTED AT AGE 17) Type Used: Cigarettes Recent Foreign Travel: No Recent Infectious Disease Expo: No Immunizations Up To Date Tetanus Booster (TDap): Unknown Date of Pneumonia Vaccine: Sep 14, 2014 Past Medical History PMH As described under Assessment. Family Medical History Family History: Asbestosis FH: CABG (coronary artery bypass surgery) 19 FATHER FH: breast cancer 19 MOTHER FH: uterine cancer 19 MOTHER Hypertension 19 FATHER Allergies and Home Medications Allergies Coded Allergies: Sulfa (Sulfonamide Antibiotics) (Verified Allergy, Unknown, 06/12/19) Home Medications Albuterol Sulfate 8.5 Gm Hfa.aer.ad, 1-2 PUFF IH Q4H PRN for WHEEZING, (Reported) Amlodipine Besylate 10 Mg Tablet, 10 MG PO DAILY, (Reported) Clonidine HCl 0.2 Mg Tablet, 0.2 MG PO TID, (Reported) Enalapril Maleate 20 Mg Tablet, 20 MG PO DAILY, (Reported) Fluticasone Propion/Salmeterol 1 Each Blst.w.dev, 1 PUFF INH BID, (Reported) Furosemide 40 Mg Tablet, 40 MG PO DAILY, (Reported) Hydrocodone/Acetaminophen 1 Each Tablet, 1 TAB PO Q4H PRN for PAIN-MODERATE, (Reported) Indomethacin 50 Mg Capsule, 50 MG PO DAILY PRN for GOUT PAIN, (Reported) Metoprolol Tartrate 100 Mg Tablet, 100 MG PO BID, (Reported) Patient Home Medication List Home Medication List Reviewed: Yes Physical Exam-Cardiology Physical Exam Vital Signs/I&O 08/15/19 08/15/19 08/15/19 08/15/19 05:44 06:00 07:00 07:00 Temp 37.0 Pulse 137 134 107 Resp 21 24 B/P (MAP) 131/101 134/100 Pulse Ox 92 96 O2 Delivery Nasal Cannula Nasal Cannula O2 Flow Rate 1.00 1.00 08/15/19 08/15/19 08/15/19 08/15/19 07:22 08:00 08:24 10:44 Pulse 138 Resp 20 B/P (MAP) 121/98 Pulse Ox 97 94 94 95 O2 Delivery Nasal Cannula Nasal Cannula Nasal Cannula Nasal Cannula O2 Flow Rate 1.00 1.00 2.00 1.00 08/15/19 08/15/19 08/15/19 08/15/19 11:20 12:00 13:00 13:00 Pulse 121 131 125 112 Resp 16 15 22 B/P (MAP) 131/93 129/90 Pulse Ox 96 91 92 O2 Delivery Nasal Cannula Nasal Cannula Nasal Cannula O2 Flow Rate 2.00 1.00 1.00 08/15/19 08/15/19 08/15/19 08/15/19 14:00 14:03 15:00 16:00 Pulse 98 110 122 Resp 18 21 16 B/P (MAP) 124/89 120/77 Pulse Ox 90 96 93 89 O2 Delivery Nasal Cannula Nasal Cannula Nasal Cannula Nasal Cannula O2 Flow Rate 1.00 1.00 1.00 1.00 08/15/19 17:00 Pulse 104 Resp 24 B/P (MAP) 141/79 Pulse Ox 92 O2 Delivery Nasal Cannula O2 Flow Rate 1.00 08/14/19 23:59 Intake Total 1200 ml Output Total 1725 ml Balance -525 ml Capillary Refill : Less Than 3 Seconds Constitutional: appears stated age, AAO x 3; No apparent distress; well- developed, well-nourished HEENT: PERRL; No normal ENT inspection, No TMs normal, No pharynx normal, No scleral icterus (R), No scleral icterus (L), No pale conjunctivae (R), No pale conjunctivae (L), No photophobia, No TM abnormal (R), No TM abnormal (L), No pharyngeal erythema, No tonsillar exudate, No other, No discharge, No EOMI; hearing is well preserved; No hard of hearing; oral hygience is good; No ulceration, No xanthelasmas are seen Neck: No non-tender, No full range of motion, No supple, No normal inspection, No carotid bruit, No limited range of motion, No lymphadenopathy (R), No lymphadenopathy (L), No tender lateral, No tender midline, No thyromegaly, No ot her; carotid pulses are 2 + bilaterally; No with good upstrokes Respiratory: chest is bilaterally symmetric, lungs clear to auscultation Cardiovascular: irregularly irregular, tachycardia, S1 and S2 Gastrointestinal: soft, audible bowel sounds; No spleenomegaly Rectal: deferred Extremities: normal range of motion, non-tender, normal inspection; No clubbing, No cyanosis; no lower extremity edema bilateral; No significant edema Neurologic/Psychiatric: no motor/sensory deficits, alert, normal mood/affect, oriented x 3, power is 5/5 both on sides Skin: normal color; No rash, No ulcerations Data Review Labs Laboratory Tests 08/14/19 22:01: Troponin I < 0.028 08/15/19 03:11: White Blood Count 6.3, Red Blood Count 4.63, Hemoglobin 14.5, Hematocrit 44, Mean Corpuscular Volume 96, Mean Corpuscular Hemoglobin 31, Mean Corpuscular Hemoglobin Concent 33, Red Cell Distribution Width 14.7H, Platelet Count 234, Mean Platelet Volume 11.0H, Neutrophils (%) (Auto) 89H, Lymphocytes (%) (Auto) 7L, Monocytes (%) (Auto) 4, Eosinophils (%) (Auto) 0, Basophils (%) (Auto) 0, Neutrophils # (Auto) 5.6, Lymphocytes # (Auto) 0.4L, Monocytes # (Auto) 0.3, Eosinophils # (Auto) 0.0, Basophils # (Auto) 0.0, Neutrophils % (Manual) 93, Lymphocytes % (Manual) 6, Monocytes % (Manual) 1, Sodium Level 141, Potassium Level 3.2L, Chloride Level 102, Carbon Dioxide Level 21, Anion Gap 18H, Blood Urea Nitrogen 18, Creatinine 1.19, Estimat Glomerular Filtration Rate 60, BUN/Creatinine Ratio 15, Glucose Level 141H, Calcium Level 9.6, Corrected Calcium 9.4, Magnesium Level 2.1, Total Bilirubin 0.8, Aspartate Amino Transf (AST/SGOT) 16, Alanine Aminotransferase (ALT/SGPT) 16, Alkaline Phosphatase 69, Total Protein 6.9, Albumin 4.3 ECG Impression ECG Initial ECG Impression: Atrial Fibrillation w/RVR A/P-Cardiology Assessment/Admission Diagnosis Atrial fibrillation with rapid ventricular rate, Shortness of breath. COPD, Significant alcohol use, Past smoker, Current marijuana use Plan There is a 73-year-old gentleman with atrial fibrillation with rapid ventricular rate. We will start oral anticoagulation. We will give IV amiodarone. He feels does not convert in the next few hours we will consider transesophageal echocardiogram assisted cardioversion. Informed consent was taken. Including the risk of esophageal damage and stroke. Continue Cardizem. We will request an echocardiogram. Shortness of breath, likely COPD exacerbation. Troponin serial negative. EKG does not reveal any acute ST-T wave abnormalities. BNP moderately elevated, acute diastolic congestive heart failure associated with atrial fibrillation cannot be ruled out. Agree with Lasix. COPD exacerbation, defer to Dr. Ochoa. Significant alcohol use, watch out for alcohol withdrawal. Current marijuana use. Thank you for your consultation. Please call me if you have any questions. Jaz Molina MD, FACP, FACC, FSCAI, FHRS, CCDS Interventional Cardiology Cardiac Electrophysiology Vascular Medicine and Endovascular Interventions Clinical Quality Measures DVT/VTE Risk/Contraindication: Risk Factor Score Per Nursin RFS Level Per Nursing on Admit: 4+=Very High Marta MOLINA MD Aug 15, 2019 17:27
--- NOTE | 2019-08-15 17:28 | Cardioversion ---
Cardioversion PROCEDURE PHYSICIAN: aJz Molina MD DATE OF PROCEDURE: 08/15/19 DIRECT EXTERNAL ELECTRICAL CARDIOVERSION: Indications: Atrial Fibrillation with rapid ventricular rate Preoperative diagnoses: Atrial Fibrillation with rapid ventricular rate Postoperative diagnosis: Sinus rhythm, Successful Electrical Cardioversion History: This is 73-year-old gentleman with history of COPD, diastolic congestive heart failure, marijuana use, alcohol use. He presents with atrial fibrillation with rapid ventricular rate. 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 Transesophageal echocardiogram did not reveal any left atrium or left atrial appendage thrombus. Electrical cardioversion was carried out with anesthesia support with propofol. 200 joules of synchronized shock was delivered through external patches which promptly restored sinus rhythm. The patient tolerated the procedure well. Conclusions: 1.Successful Cardioversion. 2.Continue oral anticoagulation and rate controlling agent. Jaz Molina MD, RS, CCDS Cardiac Electrophysiology Marta MOLINA MD Aug 15, 2019 17:28
--- NOTE | 2019-08-15 17:31 | Anesthesia-Procedure Note ---
Procedures/Interventions Procedure Start/Stop/Diagnosis Date of Procedure: Aug 15, 2019 Start Time: 17:00 Referring Physician: Tracy Preprocedural Diagnosis: AFIB Stop Time: 17:14 SAMARIA/Cardioversion ASA Class: 3 Medications Monitors on and functional. Brief report received, pt interviewed. SFM @ 10L. Propofol 170mg IV given, titrated to effect. Tolerated well. VSS throughout. See nurses notes Monitors and Equipment: BP Cuff - Left, Continuous EKG, End Tidal CO2, IV, Pulse Oximeter DWIGHT QUILES CRNA Aug 15, 2019 17:31
[2019-08-15] MEDS: CATHETER FLUSH 10 ML SYR IV SCH (20:23)
--- NOTE | 2019-08-15 20:32 | NUR ---
THIS NURSE NOTIFIED DR KWON PT WOULD LIKE SOMETHING TO HELP HIM SLEEP. ORDERS GIVEN FOR MELATONIN.
[2019-08-15] MEDS ORDERED: MELATONIN 3 MG TABLET PO PRN (21:15)
--- NOTE | 2019-08-15 23:16 | History & Physical-Hospitalist ---
History of Present Illness HPI/Chief Complaint [place] Sims is a 73-year-old male with past medical history of hypertension, COPD, who presented with shortness of breath. He reports fluid the dyspnea had been worsening over the past couple weeks. He thought that it was an issue this COPD and severe and taking extra albuterol inhalers. He denies any fevers or ch ills. He denies any chest pain. He denies any abdominal pain, nausea, vomiting, diarrhea. He denies any dysuria. Source: patient Exam Limitations: no limitations Date Seen 08/15/19 Time Seen by a Provider: 08:30 Attending Physician Win Verduzco MD PCP Win Verduzco MD Referring Physician Date of Admission Aug 15, 2019 at 13:48 Home Medications & Allergies Home Medications Reviewed patient Home Medication Reconciliation performed by pharmacy medication reconciliations tool and die technician and/or nursing. Patients Allergies have been reviewed. Allergies Allergies Coded Allergies Sulfa (Sulfonamide Antibiotics) (Verified Allergy, Unknown, 06/12/19) Past [id number]-Pwsfck Hx Past Med/Social Hx: Reviewed Nursing Past Med/Soc Hx Patient Social History Alcohol Use: Regular Use (AT LEAST A 6 PACK A DAY, EVERY DAY) Recreational Drug Use: Yes (THC ON REGULAR BASIS SINCE THE ' ) Drug of Choice: THC ON A REGULAR BASIS, SINCE THE S Smoking Status: Former Smoker (1 PPD X 50 YEARS, STARTED AT AGE 17) Former Smoker, Quit: Jun 01, 2013 Type Used: Cigarettes Recent Foreign Travel: No Contact w/other who traveled: No Recent Hopitalizations: No Recent Infectious Disease Expo: No Immunizations Up To Date Tetanus Booster (TDap): Unknown Pediatric: Yes Date of Pneumonia Vaccine: Sep 14, 2014 Seasonal Allergies Seasonal Allergies: No Past Medical History Surgeries: Appendectomy, Orthopedic Respiratory: COPD Cardiac: Atrial Fibrillation, Chronic Edema/Swelling, Hypertension, Palpitations Reproductive: No Musculoskeletal: Arthritis, Chronic Back Pain History of Blood Disorders: No Family History Asbestosis FH: CABG (coronary artery bypass surgery) 19 FATHER FH: breast cancer 19 MOTHER FH: uterine cancer 19 MOTHER Hypertension 19 FATHER Review of Systems Constitutional: see HPI Physical Exam Physical Exam Vital Signs Vital Signs - First Documented 08/14/19 08/14/19 12:33 16:00 Temp 37.2 Pulse 141 Resp 20 B/P (MAP) 139/121 (127) Pulse Ox 97 O2 Delivery Nasal Cannula O2 Flow Rate 2.00 FiO2 21 Capillary Refill : Less Than 3 Seconds Height, Weight, BMI Height: 5'9.00" Weight: 213lbs. 0.0oz. 96.048280ng; 33.66 BMI Method:Stated General Appearance: No Apparent Distress, WD/WN HEENT: PERRL/EOMI, Pharynx Normal Neck: Normal Inspection, Supple Respiratory: Lungs Clear, Normal Breath Sounds, No Respiratory Distress Cardiovascular: No Murmur, Irregularly Irregular Gastrointestinal: Normal Bowel Sounds, Non Tender, Soft Extremity: Normal Inspection, Non Tender Neurologic/Psychiatric: Alert, Oriented x3, No Motor/Sensory Deficits Skin: Normal Color, Warm/Dry Lymphatic: No Adenopathy Results Results/Procedures Labs Laboratory Tests 08/14/19 12:49 08/15/19 03:11 Patient resulted labs reviewed. Imaging: Reviewed Imaging Report Assessment/Plan Admission Diagnosis Atrial fibrillation with rapid ventricular response Admission Status: Inpatient Order (span 2 midnights) Reason for Inpatient Admission: Hypokalemia COPD Hypertension Assessment and Plan Atrial fibrillation with rapid ventricular response Started on Cardizem and amiodarone GTT Remains in atrial fibrillation Cardiology consulted Nothing by mouth for possible SAMARIA cardioversion today Started on Eliquis Hypokalemia Potassium 3.2 this morning Monitoring and replacing as needed COPD without exacerbation MAT protocol Hypertension Hold clonidine Resume other home meds Diagnosis/Problems Diagnosis/Problems (1) Paroxysmal atrial fibrillation with rapid ventricular response Status: Acute (2) Hypokalemia Status: Acute (3) COPD without exacerbation Status: Chronic (4) Hypertension Status: Chronic Qualifiers: Hypertension type: essential hypertension Qualified Codes: I10 - Essential (primary) hypertension Clinical Quality Measures DVT/VTE Risk/Contraindication: Risk Factor Score Per Nursin RFS Level Per Nursing on Admit: 4+=Very High DEMARIO TO MD Aug 15, 2019 23:16
[2019-08-16] VITALS (12 sets, daily range): BP systolic 107–150; BP diastolic 53–93
[2019-08-16] MEDS: RT-ALBUTEROL/IPRATROPIUM 3 ML (DUONEB) VIAL INH SCH ×3 (03:13→10:55)
[2019-08-16 03:43] LABS: BUN/CREATININE RATIO 17; CALCIUM 8.9 MG/DL (8.5-10.1); CARBON DIOXIDE 24 MMOL/L (21-32); CHLORIDE 107 MMOL/L (98-107); CREATININE SERUM 1.14 MG/DL (0.60-1.30); GFR ESTIMATED > 60; GLUCOSE 107 MG/DL (70-105); POTASSIUM 3.3 MMOL/L (3.6-5.0); SODIUM 143 MMOL/L (135-145)
[2019-08-16] MEDS: CATHETER FLUSH 10 ML SYR IV SCH ×2 (06:02→14:30)
[2019-08-16] MEDS ORDERED: KCL 20 MEQ TAB (K-DUR) PO NR (08:45)
[2019-08-16] MEDS ORDERED: FUROSEMIDE 40 MG (LASIX) TAB PO SCH (09:00)
[2019-08-16] MEDS ORDERED: ENALAPRIL 10 MG (VASOTEC) TAB PO SCH (09:00)
[2019-08-16] MEDS ORDERED: NON-FORMULARY MEDICATION 1 EA EA (Metoprolol Tartrate 100 MG) PO SCH (09:00)
[2019-08-16] MEDS ORDERED: meTOprolol TARTRATE 50 MG (LOPRESSOR) TAB PO SCH (09:00)
[2019-08-16] MEDS ORDERED: amLODIPine 10 MG (NORVASC) TAB PO SCH (09:00)
[2019-08-16] MEDS ORDERED: NON-FORMULARY MEDICATION 1 EA EA (Fluticasone Propion/Salmeterol (Fluticasone-Salmeterol 2 INH SCH (09:00)
[2019-08-16] MEDS ORDERED: RT-ADVAIR HFA 115/21 MCG PER PUFF IH SCH (09:00)
[2019-08-16] MEDS: APIXABAN 5 MG (ELIQUIS) TABLET PO SCH (09:11)
[2019-08-16] MEDS: ASPIRIN E.C. 81 MG (ECOTRIN) TAB PO SCH (09:11)
[2019-08-16] MEDS ORDERED: AMIODARONE 200 MG (CORDARONE) TAB PO SCH (11:30)
[2019-08-16] MEDS ORDERED: APIX5TAB PO (13:28)
[2019-08-16] MEDS ORDERED: DILT120C94 PO (13:28)
--- NOTE | 2019-08-16 13:35 | Discharge Summary ---
Discharge Summary Hospital Course Was the Problem List Reviewed?: Yes Problems/Dx: (1) Paroxysmal atrial fibrillation with rapid ventricular response Status: Acute (2) Hypokalemia Status: Resolved (3) COPD without exacerbation Status: Chronic (4) Hypertension Status: Chronic Qualifiers: Qualified Codes: I10 - Essential (primary) hypertension Hospital Course Date of Admission: Aug 15, 2019 at 13:48 Admission Diagnosis : AFib with RVR Family Physician/Provider: Win Verduzco MD Date of Discharge: 08/16/19 Discharge Diagnosis: AFib with RVR Hospital Course: [place] Sims is a 73yoM who presented with dyspnea and was admitted with AFib with RVR. He was started on oral Cardizem and Eliquis. He underwent SAMARIA ca rdioversion 08/15 and converted to normal sinus rhythm. He will follow up with Dr. Molina as an outpatient. Labs and Pending Lab Test: Laboratory Tests 08/16/19 03:11: Sodium Level 143, Potassium Level 3.3L, Chloride Level 107, Carbon Dioxide Level 24, Anion Gap 12, Blood Urea Nitrogen 19H, Creatinine 1.14, Estimat Glomerular Filtration Rate > 60, BUN/Creatinine Ratio 17, Glucose Level 107H, Calcium Level 8.9 Home Meds Active Diltiazem 24Hr Cd (Diltiazem HCl) 120 Mg Cap.er.24h 120 Mg PO DAILY@0900 90 Days Eliquis (Apixaban) 5 Mg Tablet 5 Mg PO BID 90 Days Reported Metoprolol Tartrate 100 Mg Tablet 100 Mg PO BID Clonidine HCl 0.2 Mg Tablet 0.2 Mg PO TID Fluticasone-Salmeterol 250-50 (Fluticasone Propion/Salmeterol) 1 Each Blst.w.dev 1 Puff INH BID Furosemide 40 Mg Tablet 40 Mg PO DAILY Hydrocodon-Acetaminophn 10-325 (Hydrocodone/Acetaminophen) 1 Each Tablet 1 Tab PO Q4H PRN Proair Hfa (Albuterol Sulfate) 8.5 Gm Hfa.aer.ad 1-2 Puff IH Q4H PRN Enalapril Maleate 20 Mg Tablet 20 Mg PO DAILY Indomethacin 50 Mg Capsule 50 Mg PO DAILY PRN Amlodipine Besylate 10 Mg Tablet 10 Mg PO DAILY Assessment/Pt Instructions Take medications as prescribed. 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 Follow up with PCP. Follow up with Dr. Molina. Discharge Planning: <30 minutes discharge planning Discharge Instructions Discharge Diet: Low Sodium Diet Activity as Tolerated: Yes Consultations Cardiology Discharge Physical Examination Vital Signs Vital Signs Date Time Temp Pulse Resp B/P (MAP) Pulse Ox O2 Delivery O2 Flow Rate FiO2 08/16/19 13:03 37.1 82 21 143/86 (105) 94 08/16/19 12:00 Nasal Cannula 1.50 08/14/19 16:00 21 General Appearance: No Apparent Distress, WD/WN, Obese HEENT: PERRL/EOMI, Pharynx Normal Respiratory: Lungs Clear, Normal Breath Sounds, No Respiratory Distress Cardiovascular: Regular Rate, Rhythm, No Edema, No Murmur Gastrointestinal: Normal Bowel Sounds, Non Tender, Soft Extremity: Normal Inspection, Non Tender, No Pedal Edema Skin: Normal Color, Warm/Dry Neurologic/Psychiatric: Alert, Oriented x3 Allergies: Coded Allergies: Sulfa (Sulfonamide Antibiotics) (Verified Allergy, Unknown, 06/12/19) Discharge Summary Date of Admission Aug 15, 2019 at 13:48 Date of Discharge Discharge Date: Aug 16, 2019 Discharge Time: 13:31 Admission Diagnosis Atrial fibrillation with rapid ventricular response Consults/Procedures Consulations Cardiology Procedures SAMARIA Cardioversion Discharge Diagnosis Atrial fibrillation with rapid ventricular response (1) Paroxysmal atrial fibrillation with rapid ventricular response Status: Acute (2) Hypokalemia Status: Resolved (3) COPD without exacerbation Status: Chronic (4) Hypertension Status: Chronic Qualifiers: Qualified Codes: I10 - Essential (primary) hypertension Clinical Quality Measures DVT/VTE Risk/Contraindication: Risk Factor Score Per Nursin RFS Level Per Nursing on Admit: 4+=Very High DEMARIO TO MD Aug 16, 2019 13:35
[2019-08-16] MEDS ORDERED: AMIO200T4 PO (13:48)
--- NOTE | 2019-08-16 14:17 | NUR ---
VALDO KRUGER demonstrates understanding of discharge instructions and accurately returns instructions upon questioning. Copy of Post-Discharge Instructions and Medication Discharge Instructions given to . VALDO KRUGER is able to manage continuing needs after discharge. Patients belongings returned to patient. Skin dry and intact; no breakdown noted. Patient discharged from [facility] on 08/16/19 at 1417. VALDO KRUGER left floor via wheelchair, accompanied by ELECTRICAL FOREMAN.
--- NOTE | 2019-08-16 17:52 | Cardiology Progress Note ---
Cardiology SOAP Progress Note Subjective: No further atrial fibrillation. Objective: I&O/Vital Signs 08/17/19 00:00 Intake Total 1000 ml Output Total 850 ml Balance 150 ml Weight (Pounds): 213 Weight (Ounces): 0.0 Weight (Calculated Kilograms): 96.032020 Constitutional: appears stated age, AAO x 3; No apparent distress; well- developed, well-nourished Respiratory: chest is bilaterally symmetric, lungs clear to auscultation Cardiovascular: regular rate-rhythm, tachycardia, S1 and S2 Gastrointestional: soft, audible bowel sounds; No spleenomegaly Extremities: normal range of motion, non-tender, normal inspection; No clubbing, No cyanosis; no lower extremity edema bilateral; No significant edema Neurologic/Psychiatric: no motor/sensory deficits, alert, normal mood/affect, oriented x 3, power is 5/5 both on sides Skin: normal color; No rash, No ulcerations Results/Procedures: Labs A/P: Assessment/Dx: Atrial fibrillation with rapid ventricular rate, Shortness of breath. COPD, Significant alcohol use, Past smoker, Current marijuana use Plan: There is a 73-year-old gentleman with atrial fibrillation with rapid ventricular rate. Transesophageal echocardiogram assisted cardioversion done on 08/15/2019 which was successful. We'll also perform regular echocardiogram. Continue rate control and agent as well as oral anticoagulation therapy. Okay to discharge to follow-up as an outpatient. Shortness of breath, likely COPD exacerbation. Troponin serial negative. EKG does not reveal any acute ST-T wave abnormalities. BNP moderately elevated, acute diastolic congestive heart failure associated with atrial fibrillation cannot be ruled out. Agree with Lasix. COPD exacerbation, defer to Dr. Ochoa. Significant alcohol use, watch out for alcohol withdrawal. Current marijuana use. Thank you for your consultation. Please call me if you have any questions. Jaz Molina MD, FACP, FACC, FSCAI, FHRS, CCDS Interventional Cardiology Cardiac Electrophysiology Vascular Medicine and Endovascular Interventions Marta MOLINA MD Aug 16, 2019 17:52
--- NOTE | 2019-08-23 14:03 | Physician Query Clarification ---
PQ-CHF Specificity Admission Date: Aug 15, 2019 at 13:48 Discharge Date: Aug 16, 2019 at 14:17 The medical record reflects the following clinical scenario: History/Risk Factors: COPD, AFib Clinical Findings: elevated BNP, short of breath Treatment: Lasix Question: Can you further specify the acuity &/or type of CHF per the clinical indicators above? Dr Molina's consult states acute diastolic CHF cannot be ruled out Please document a response in the Progress Notes or Discharge Summary. 1. Acuity: Acute, Chronic or Acute on Chronic 2. Type: Systolic, Diastolic or Systolic & Diastolic 3. Unspecified: CHF cannot be further specified regarding type or acuity 4. Other, with explanation of clinical findings 5. Clinically undetermined, no explanation for clinical findings PHYSICIAN RESPONSE Acuity: Acute on Chronic Type: Diastolic Please remember a lack of response to the above will prompt a phone page by CDI/Coding staff. In responding to this query, please exercise your independent professional judgment. The purpose of this communication is to more accurately reflect the complexity of your patients condition. The fact that a question is asked does not imply that any particular answer is desired or expected. Thank you for your timely response to this clarification. Requestors name: Anna Baker Phone # [phone] THIS PHYSICIAN QUERY FORM IS A PERMANENT PART OF THE MEDICAL RECORD ANNA RANGEL Aug 23, 2019 14:03 DEMARIO TO MD Aug 28, 2019 19:50
--- NOTE | 2019-08-23 14:11 | Physician Query Clarification ---
PQ-Conflicting Diagnosis Admission/Discharge Admission Date: Aug 15, 2019 at 13:48 Discharge Date: Aug 16, 2019 at 14:17 The medical record reflects the following clinical scenario: History/Risk Factors: COPD Clinical Findings: COPD, CHF, AF Treatment: Breathing treatments, albuterol, home O2 Question: Do you agree with the impression of the Acute Exacerbation of COPD per Dr Ochoa and Dr Molina. Please document a response in Progress Note or Discharge Summary. 1. Yes 2. No 3. Other, with explanation of clinical findings 4. Clinically undetermined, no explanation for clinical findings. PHYSICIAN RESPONSE Do you agree w/Consulting Dx?: Yes Please remember a lack of response to the above will prompt a phone page by CDI/Coding staff. In responding to this query, please exercise your independent professional judgment. The purpose of this communication is to more accurately reflect the complexity of your patients condition. The fact that a question is asked does not imply that any particular answer is desired or expected. Thank you for your timely response to this clarification. Requestors name: Anna Baker Phone # [phone] THIS PHYSICIAN QUERY FORM IS A PERMANENT PART OF THE MEDICAL RECORD ANNA RANGEL Aug 23, 2019 14:11 DEMARIO TO MD Sep 12, 2019 16:44
--- OUTSIDE RECORDS SUMMARY | 2019-09-03 21:13 | XMS REPORT | Continuity of Care Document ---
Author Organization Unknown Address Unknown Phone Unavailable Allergies Active Description Code Type Severity Reaction Onset Reported/Identified Relationship to Patient Clinical Status Yes Sulfa (Sulfonamide Antibiotics) [id number] Drug Allergy Unknown N/A 06/12/2019 Medications There is no data. Problems Date [...] V58.61 08/24/2015 Ot V58.83 09/17/2015 OSCAR KELLER P[employer] POURER Ot 278.00 09/17/2015 OSCAR KELLER P[employer]ER [employer] POURER Ot 401.9 09/17/2015 TRACY KELLERINE Leno POWDER BLENDER AND POURER Ot 496 09/17/2015 TRACY KELLERINE Leno POWDER BLENDER AND POURER Ot 780.54 09/17/2015 TRACY KELLERINE E POWDER BLENDER AND POURER Ot 786.09 09/24/2015 TRACY KELLERINE E POWDER BLENDER AND POURER Ot 278.00 09/24/2015 OSCAR KELLER POWDER BLENDER AND POURER Ot 401.9 09/24/2015 OSCAR KELLER POWDER BLENDER AND POURER Ot 496 09/24/2015 TRACY KELLERINE E POWDER BLENDER AND POURER Ot 780.54 09/24/2015 TRACY KELLERINE Leno POWDER BLENDER AND POURER Ot 786.09 10/31/2015 OSCAR KELLER P[employer] POURER Ot G47.10 HYPERSOMNIA, UNSPECIFIED 10/31/2015 OSCAR KELLER P[employer]ER AND POURER Ot I10 ESSENTIAL (PRIMARY) HYPERTENSION 10/31/2015 OSCAR KELLER P[employer]ER AND POURER Ot J44.9 CHRONIC OBSTRUCTIVE PULMONARY DISEASE, U 10/31/2015 OSCAR KELLER [employer] POURER Ot R06.83 SNORING 07/09/2016 RUSTAM COSME DO Ot Z01.818 ENCOUNTER FOR OTHER PREPROCEDURAL EXAMIN 07/09/2016 RUSTAM COSME DO Ot Z12.11 ENCOUNTER FOR SCREENING FOR MALIGNANT NE 07/10/2016 COSME VAL SHINETT Ruth Ot Z01.818 ENCOUNTER FOR OTHER PREPROCEDURAL EXAMIN 07/10/2016 COSME VAL SHINETT Ruth Ot Z12.11 ENCOUNTER FOR SCREENING FOR MALIGNANT NE 07/11/2016 RUSTAM COSME DO Ot K63.5 POLYP OF COLON 07/11/2016 COSME VAL SHINETT Ruth Ot Z12.11 ENCOUNTER FOR SCREENING FOR MALIGNANT NE 07/15/2016 COSME RUSTAM SHINE Ot Z01.818 ENCOUNTER FOR OTHER PREPROCEDURAL EXAMIN 07/15/2016 COSME RUSTAM SHINE Ot Z12.11 ENCOUNTER FOR SCREENING FOR MALIGNANT NE 07/16/2016 VAL COSME DOTT Ruth Ot K63.5 POLYP OF COLON 07/16/2016 COSME VAL SHINETT Ruth Ot Z12.11 ENCOUNTER FOR SCREENING FOR MALIGNANT NE 07/19/2016 COSME VAL SHINETT Ruth Ot K63.5 POLYP OF COLON 07/19/2016 [place] VAL SHINETT Ruth Ot Z12.11 ENCOUNTER FOR SCREENING FOR MALIGNANT NE 05/14/2018 OSCAR KELLER P[employer] POURER Ot 278.00 OBESITY, NOS 05/14/2018 OSCAR KELLER POW[employer]ER AND POURER Ot 401.9 HYPERTENSION NOS 05/14/2018 OSCAR KELLER POWDER BLENDER AND POURER Ot 496 CHR AIRWAY OBSTRUCT NEC 05/14/2018 OSCAR KELLER POWDER BLENDER AND POURER Ot 780.54 HYPERSOMNIA, UNSPECIFIED 05/14/2018 OSCAR KELLER POWDER BLENDER AND POURER Ot 786.09 RESPIRATORY ABNORM NEC 05/17/2018 JORI, BOBBY L POWDER BLENDER AND POURER Ot M79.89 OTHER SPECIFIED SOFT TISSUE DISORDERS 05/17/2018 JORI, BOBBY L POWDER BLENDER AND POURER Ot R06.00 DYSPNEA, UNSPECIFIED 05/17/2018 JORI, BOBBY L POWDER BLENDER AND POURER Ot S22.42XA MULTIPLE FRACTURES OF RIBS, LEFT SIDE, I 05/17/2018 JORI, BOBBY L POWDER BLENDER AND POURER Ot W19.XXXA UNSPECIFIED FALL, INITIAL ENCOUNTER 05/17/2018 JORI, BOBBY L POWDER BLENDER AND POURER Ot Z87.09 PERSONAL HISTORY OF OTHER DISEASES OF TH 05/17/2018 JORI, BOBBY L POWDER BLENDER AND POURER Ot 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 LEFT ARTIFICIAL KNEE JOINT 05/17/2018 JORI, BOBBY L POWDER BLENDER AND POURER Ot M79.89 OTHER SPECIFIED SOFT TISSUE DISORDERS 05/17/2018 JORI, BOBBY L POWDER BLENDER AND POURER Ot R06.00 DYSPNEA, UNSPECIFIED 05/17/2018 JORI, BOBBY L POWDER BLENDER AND POURER Ot R10.9 UNSPECIFIED ABDOMINAL PAIN 05/17/2018 JORI, BOBBY L POWDER BLENDER AND POURER Ot S22.42XA MULTIPLE FRACTURES OF RIBS, LEFT SIDE, I 05/17/2018 JORI, BOBBY L POWDER BLENDER AND POURER Ot W19.XXXA UNSPECIFIED FALL, INITIAL ENCOUNTER 05/17/2018 JORI, BOBBY L POWDER BLENDER AND POURER Ot Z87.09 PERSONAL HISTORY OF OTHER DISEASES OF TH 05/17/2018 JORI, BOBBY L POWDER BLENDER AND POURER Ot 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 LEFT ARTIFICIAL KNEE JOINT 06/07/2018 JORI, BOBBY L POWDER BLENDER AND POURER Ot M79.89 OTHER SPECIFIED SOFT TISSUE DISORDERS 06/07/2018 JORI, BOBBY L POWDER BLENDER AND POURER Ot R06.00 DYSPNEA, UNSPECIFIED 06/07/2018 JORI, BOBBY L POWDER BLENDER AND POURER Ot R10.9 UNSPECIFIED ABDOMINAL PAIN 06/07/2018 JORI, BOBBY L POWDER BLENDER AND POURER Ot S22.42XA MULTIPLE FRACTURES OF RIBS, LEFT SIDE, I 06/07/2018 JORI, BOBBY L POWDER BLENDER AND POURER Ot W19.XXXA UNSPECIFIED FALL, INITIAL ENCOUNTER 06/07/2018 JORI, BOBBY L POWDER BLENDER AND POURER Ot Z87.09 PERSONAL HISTORY OF OTHER DISEASES OF TH 06/07/2018 JORI, BOBBY L POWDER BLENDER AND POURER Ot 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 LEFT ARTIFICIAL KNEE JOINT 03/30/2019 OSCAR KELLER POWDER BLENDER AND POURER Ot 278.00 OBESITY, NOS 03/30/2019 OSCAR KELLER POWDER BLENDER AND POURER Ot 401.9 HYPERTENSION NOS 03/30/2019 OSCAR KELLER POWDER BLENDER AND POURER Ot 496 CHR AIRWAY OBSTRUCT NEC 03/30/2019 OSCAR KELLER POWDER BLENDER AND POURER Ot 780.54 HYPERSOMNIA, UNSPECIFIED 03/30/2019 OSCAR KELLER E POWDER BLENDER AND POURER Ot 786.09 RESPIRATORY ABNORM NEC 03/30/2019 JORI, BOBBY L POWDER BLENDER AND POURER Ot M79.89 OTHER SPECIFIED SOFT TISSUE DISORDERS 03/30/2019 JORI, BOBBY L POWDER BLENDER AND POURER Ot R06.00 DYSPNEA, UNSPECIFIED 03/30/2019 JORI, BOBBY L POWDER BLENDER AND POURER Ot R10.9 UNSPECIFIED ABDOMINAL PAIN 03/30/2019 JORI, BOBBY L POWDER BLENDER AND POURER Ot S22.42XA MULTIPLE FRACTURES OF RIBS, LEFT SIDE, I 03/30/2019 JORI, BOBBY L POWDER BLENDER AND POURER Ot W19.XXXA UNSPECIFIED FALL, INITIAL ENCOUNTER 03/30/2019 JORI, BOBBY L POWDER BLENDER AND POURER Ot Z87.09 PERSONAL HISTORY OF OTHER DISEASES OF TH 03/30/2019 JORI, BOBBY L POWDER BLENDER AND POURER Ot 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 LEFT ARTIFICIAL KNEE JOINT 03/30/2019 OSCAR KELLER POWDER BLENDER AND POURER Ot 278.00 OBESITY, NOS 03/30/2019 OSCAR KELLER POWDER BLENDER AND POURER Ot 401.9 HYPERTENSION NOS 03/30/2019 OSCAR KELLER POWDER BLENDER AND POURER Ot 496 CHR AIRWAY OBSTRUCT NEC 03/30/2019 OSCAR KELLER POWDER BLENDER AND POURER Ot 780.54 HYPERSOMNIA, UNSPECIFIED 03/30/2019 OSCAR KELLER POWDER BLENDER AND POURER Ot 786.09 RESPIRATORY ABNORM NEC 03/30/2019 JORI, BOBBY L POWDER BLENDER AND POURER Ot M79.89 OTHER SPECIFIED SOFT TISSUE DISORDERS 03/30/2019 JORI, BOBBY L POWDER BLENDER AND POURER Ot R06.00 DYSPNEA, UNSPECIFIED 03/30/2019 JORI, BOBBY L POWDER BLENDER AND POURER Ot R10.9 UNSPECIFIED ABDOMINAL PAIN 03/30/2019 JORI, BOBBY L POWDER BLENDER AND POURER Ot S22.42XA MULTIPLE FRACTURES OF RIBS, LEFT SIDE, I 03/30/2019 JORI, BOBBY L POWDER BLENDER AND POURER Ot W19.XXXA UNSPECIFIED FALL, INITIAL ENCOUNTER 03/30/2019 OJRI, BOBBY L POWDER BLENDER AND POURER Ot Z87.09 PERSONAL HISTORY OF OTHER DISEASES OF TH 03/30/2019 JORI, BOBBY L POWDER BLENDER AND POURER Ot 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 LEFT ARTIFICIAL KNEE JOINT 03/30/2019 OSCAR KELLER E POWDER BLENDER AND POURER Ot 278.00 OBESITY, NOS 03/30/2019 OSCAR KELLER POWDER BLENDER AND POURER Ot 401.9 HYPERTENSION NOS 03/30/2019 TRACY KELLERINE E POWDER BLENDER AND POURER Ot 496 CHR AIRWAY OBSTRUCT NEC 03/30/2019 TRACY KELLERINE E POWDER BLENDER AND POURER Ot 780.54 HYPERSOMNIA, UNSPECIFIED 03/30/2019 TRACY KELLERINE E POWDER BLENDER AND POURER Ot 786.09 RESPIRATORY ABNORM NEC 03/30/2019 JORI, BOBBY L POWDER BLENDER AND POURER Ot M79.89 OTHER SPECIFIED SOFT TISSUE DISORDERS 03/30/2019 JOIR, BOBBY L POWDER BLENDER AND POURER Ot R06.00 DYSPNEA, UNSPECIFIED 03/30/2019 JORI, BOBBY L POWDER BLENDER AND POURER Ot R10.9 UNSPECIFIED ABDOMINAL PAIN 03/30/2019 JORI, BOBBY L POWDER BLENDER AND POURER Ot S22.42XA MULTIPLE FRACTURES OF RIBS, LEFT SIDE, I 03/30/2019 JORI, BOBBY L POWDER BLENDER AND POURER Ot W19.XXXA UNSPECIFIED FALL, INITIAL ENCOUNTER 03/30/2019 JORI, BOBBY L POWDER BLENDER AND POURER Ot Z87.09 PERSONAL HISTORY OF OTHER DISEASES OF TH 03/30/2019 JORI, BOBBY L POWDER BLENDER AND POURER Ot 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 LEFT ARTIFICIAL KNEE JOINT 03/30/2019 OSCAR KELLER POWDER BLENDER AND POURER Ot 278.00 OBESITY, NOS 03/30/2019 OSCAR KELLER POWDER BLENDER AND POURER Ot 401.9 HYPERTENSION NOS 03/30/2019 OSCAR KELLER POWDER BLENDER AND POURER Ot 496 CHR AIRWAY OBSTRUCT NEC 03/30/2019 OSCAR KELLER POWDER BLENDER AND POURER Ot 780.54 HYPERSOMNIA, UNSPECIFIED 03/30/2019 OSCAR KELLER POWDER BLENDER AND POURER Ot 786.09 RESPIRATORY ABNORM NEC 03/30/2019 JORI, BOBBY L POWDER BLENDER AND POURER Ot M79.89 OTHER SPECIFIED SOFT TISSUE DISORDERS 03/30/2019 JORI, BOBBY L POWDER BLENDER AND POURER Ot R06.00 DYSPNEA, UNSPECIFIED 03/30/2019 JORI, BOBBY L POWDER BLENDER AND POURER Ot R10.9 UNSPECIFIED ABDOMINAL PAIN 03/30/2019 JORI, BOBBY L POWDER BLENDER AND POURER Ot S22.42XA MULTIPLE FRACTURES OF RIBS, LEFT SIDE, I 03/30/2019 JORI, BOBBY L POWDER BLENDER AND POURER Ot W19.XXXA UNSPECIFIED FALL, INITIAL ENCOUNTER 03/30/2019 JORI, BOBBY L POWDER BLENDER AND POURER Ot Z87.09 PERSONAL HISTORY OF OTHER DISEASES OF TH 03/30/2019 JORI, BOBBY L POWDER BLENDER AND POURER Ot 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 LEFT ARTIFICIAL KNEE JOINT 04/06/2019 OSCAR KELLER POWDER BLENDER AND POURER Ot 278.00 OBESITY, NOS 04/06/2019 TRACY KELLERINE E POWDER BLENDER AND POURER Ot 401.9 HYPERTENSION NOS 04/06/2019 TRACY KELLERINE E POWDER BLENDER AND POURER Ot 496 CHR AIRWAY OBSTRUCT NEC 04/06/2019 TRACY KELLERINE E POWDER BLENDER AND POURER Ot 780.54 HYPERSOMNIA, UNSPECIFIED 04/06/2019 TRACY KELLERINE E POWDER BLENDER AND POURER Ot 786.09 RESPIRATORY ABNORM NEC 04/06/2019 JORI, BOBBY L POWDER BLENDER AND POURER Ot M79.89 OTHER SPECIFIED SOFT TISSUE DISORDERS 04/06/2019 JORI, BOBBY L POWDER BLENDER AND POURER Ot R06.00 DYSPNEA, UNSPECIFIED 04/06/2019 JORI, BOBBY L POWDER BLENDER AND POURER Ot R10.9 UNSPECIFIED ABDOMINAL PAIN 04/06/2019 JORI, BOBBY L POWDER BLENDER AND POURER Ot S22.42XA MULTIPLE FRACTURES OF RIBS, LEFT SIDE, I 04/06/2019 JORI, BOBBY L POWDER BLENDER AND POURER Ot W19.XXXA UNSPECIFIED FALL, INITIAL ENCOUNTER 04/06/2019 JORI, BOBBY L POWDER BLENDER AND POURER Ot Z87.09 PERSONAL HISTORY OF OTHER DISEASES OF 04/06/2019 JORI, BOBBY L POWDER BLENDER AND POURER Ot 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 LEFT ARTIFICIAL KNEE JOINT 04/06/2019 OSCAR KELLER POWDER BLENDER AND POURER Ot 278.00 OBESITY, NOS 04/06/2019 TRACY KELLERINE E POWDER BLENDER AND POURER Ot 401.9 HYPERTENSION NOS 04/06/2019 OSCAR KELLER POWDER BLENDER AND POURER Ot 496 CHR AIRWAY OBSTRUCT NEC 04/06/2019 OSCAR KELLER E POWDER BLENDER AND POURER Ot 780.54 HYPERSOMNIA, UNSPECIFIED 04/06/2019 TRACY KELLERINE E POWDER BLENDER AND POURER Ot 786.09 RESPIRATORY ABNORM NEC 04/06/2019 JORI, BOBBY L POWDER BLENDER AND POURER Ot M79.89 OTHER SPECIFIED SOFT TISSUE DISORDERS 04/06/2019 JORI, BOBBY L POWDER BLENDER AND POURER Ot R06.00 DYSPNEA, UNSPECIFIED 04/06/2019 JORI, BOBBY L POWDER BLENDER AND POURER Ot R10.9 UNSPECIFIED ABDOMINAL PAIN 04/06/2019 JORI, BOBBY L POWDER BLENDER AND POURER Ot S22.42XA MULTIPLE FRACTURES OF RIBS, LEFT SIDE, I 04/06/2019 JORI, BOBBY L POWDER BLENDER AND POURER Ot W19.XXXA UNSPECIFIED FALL, INITIAL ENCOUNTER 04/06/2019 BOBBY HSIEH VERONIKA Ot Z87.09 PERSONAL HISTORY OF OTHER DISEASES OF TH 04/06/2019 BOBBY HSIEH VERONIKA Ot 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 LEFT ARTIFICIAL KNEE JOINT 04/08/2019 DAVID EDGAR, Marta CHAIDEZ Ot I49.3 VENTRICULAR PREMATURE DEPOLARIZATION 04/08/2019 DAVID EDGAR, Marta CHAIDEZ Ot R42 DIZZINESS AND GIDDINESS 04/08/2019 Marta HERNANDEZ MD Ot R55 SYNCOPE AND COLLAPSE 04/28/2019 Marta HERNANDEZ MD, Ot I49.3 VENTRICULAR PREMATURE DEPOLARIZATION 04/28/2019 Marta HERNANDEZ MD, Ot R42 DIZZINESS AND GIDDINESS 04/28/2019 Marta HERNANDEZ MD Ot R55 SYNCOPE AND COLLAPSE 06/13/2019 BENJAMIN MOSER MD Ot G47.33 OBSTRUCTIVE SLEEP APNEA (ADULT) (PEDIATR 06/13/2019 BENJAMIN MOSER MD Ot I10 ESSENTIAL (PRIMARY) HYPERTENSION 06/13/2019 BENJAMIN MOSER MD Ot I48.0 PAROXYSMAL ATRIAL FIBRILLATION 06/13/2019 BENJAMIN MOSER MD Ot J44.1 CHRONIC OBSTRUCTIVE PULMONARY DISEASE W 06/13/2019 BENJAMIN MOSER MD Ot J96.01 ACUTE RESPIRATORY FAILURE WITH HYPOXIA 06/13/2019 BENJAMIN MOSER MD Ot R09.02 HYPOXEMIA 06/13/2019 BENJAMIN MOSER MD Ot Z87.891 PERSONAL HISTORY OF NICOTINE DEPENDENCE 06/14/2019 OSCAR KELLER POWDER BLENDER AND POURER Ot 278.00 OBESITY, NOS 06/14/2019 OSCAR KELLER POWDER BLENDER AND POURER Ot 401.9 HYPERTENSION NOS 06/14/2019 OSCAR KELLER POWDER BLENDER AND POURER Ot 496 CHR AIRWAY OBSTRUCT NEC 06/14/2019 OSCAR KELLER POWDER BLENDER AND POURER Ot 780.54 HYPERSOMNIA, UNSPECIFIED 06/14/2019 OSCAR KELLER POWDER BLENDER AND POURER Ot 786.09 RESPIRATORY ABNORM NEC 06/14/2019 BOBBY HSIEH POWDER BLENDER AND POURER Ot M79.89 OTHER SPECIFIED SOFT TISSUE DISORDERS 06/14/2019 JORI, BOBBY L POWDER BLENDER AND POURER Ot R06.00 DYSPNEA, UNSPECIFIED 06/14/2019 JORIBOBBY POWDER BLENDER AND POURER Ot R10.9 UNSPECIFIED ABDOMINAL PAIN 06/14/2019 BOBBY HSIEH POWDER BLENDER AND POURER Ot S22.42XA MULTIPLE FRACTURES OF RIBS, LEFT SIDE, I 06/14/2019 BOBBY HSIEH POWDER BLENDER AND POURER Ot W19.XXXA UNSPECIFIED FALL, INITIAL ENCOUNTER 06/14/2019 BOBBY HSIEH POWDER BLENDER AND POURER Ot Z87.09 PERSONAL HISTORY OF OTHER DISEASES OF TH 06/14/2019 BOBBY HSIEH POWDER BLENDER AND POURER Ot 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 LEFT ARTIFICIAL KNEE JOINT 06/14/2019 DAVID EDGAR, Marta CHAIDEZ Ot I49.3 VENTRICULAR PREMATURE DEPOLARIZATION 06/14/2019 DAVID EDGAR, Marta CHAIDEZ Ot R42 DIZZINESS AND GIDDINESS 06/14/2019 DAVID EDGAR, Marta CHAIDEZ Ot R55 SYNCOPE AND COLLAPSE 06/14/2019 DAVID EDGAR, Marta CHAIDEZ Ot I49.3 VENTRICULAR PREMATURE DEPOLARIZATION 06/14/2019 DAVID EDGAR, M DM Ot R42 DIZZINESS AND GIDDINESS 06/14/2019 DAVID EDGAR, Marta CHAIDEZ Ot R55 SYNCOPE AND COLLAPSE 07/05/2019 DAVID EDGAR, Marta CHAIDEZ Ot I49.3 VENTRICULAR PREMATURE DEPOLARIZATION 07/05/2019 DAVID EDGAR, Marta CHAIDEZ Ot R42 DIZZINESS AND GIDDINESS 07/05/2019 DAVID EDGAR, Marta CHAIDEZ Ot R55 SYNCOPE AND COLLAPSE 08/16/2019 MARGARITA EDGAR, ISAI R Ot E87.2 ACIDOSIS 08/16/2019 ISAI AVILA MD R Ot E87.6 HYPOKALEMIA 08/16/2019 ISAI AVILA MD R Ot I10 ESSENTIAL (PRIMARY) HYPERTENSION 08/16/2019 MARGARITA EDGAR, ISAI R Ot I48.0 PAROXYSMAL ATRIAL FIBRILLATION 08/16/2019 ISAI AVILA MD R Ot I50.31 ACUTE DIASTOLIC (CONGESTIVE) HEART FAILU 08/16/2019 MARGARITA EDGAR, ISAI R Ot J44.1 CHRONIC OBSTRUCTIVE PULMONARY DISEASE W 08/16/2019 MARGARITA EDGAR, ISAI R Ot M19.91 PRIMARY OSTEOARTHRITIS, UNSPECIFIED SITE 08/16/2019 ISAI AVILA MD R Ot M54.9 DORSALGIA, UNSPECIFIED 08/16/2019 MARGARITA EDGAR, ISAI R Ot Z87.891 PERSONAL HISTORY OF NICOTINE DEPENDENCE 08/16/2019 MARGARITA EDGAR, ISAI Mahoney Ot Z88.2 ALLERGY STATUS TO SULFONAMIDES STATUS 08/16/2019 MARGARITA EDGAR, ISAI R Ot Z99.81 DEPENDENCE ON SUPPLEMENTAL OXYGEN 08/22/2019 DAVID EDGAR, Marta CHAIDEZ Ot R07.9 CHEST PAIN, UNSPECIFIED 08/23/2019 OSCAR KELLER POW[employer] BLENDER AND POURER Ot 278.00 OBESITY, NOS 08/23/2019 OSCAR KELLER POWDER BLENDER AND POURER Ot 401.9 HYPERTENSION NOS 08/23/2019 OSCAR KELLER POWDER BLENDER AND POURER Ot 496 CHR AIRWAY OBSTRUCT NEC 08/23/2019 OSCAR KELLER POWDER BLENDER AND POURER Ot 780.54 HYPERSOMNIA, UNSPECIFIED 08/23/2019 OSCAR KELLER POWDER BLENDER AND POURER Ot 786.09 RESPIRATORY ABNORM NEC 08/23/2019 JORI, BOBBY L POWDER BLENDER AND POURER Ot M79.89 OTHER SPECIFIED SOFT TISSUE DISORDERS 08/23/2019 JORI, BOBBY L POWDER BLENDER AND POURER Ot R06.00 DYSPNEA, UNSPECIFIED 08/23/2019 JORI, BOBBY L POWDER BLENDER AND POURER Ot R10.9 UNSPECIFIED ABDOMINAL PAIN 08/23/2019 JORI, BOBBY L POWDER BLENDER AND POURER Ot S22.42XA MULTIPLE FRACTURES OF RIBS, LEFT SIDE, I 08/23/2019 JORI, BOBBY L POWDER BLENDER AND POURER Ot W19.XXXA UNSPECIFIED FALL, INITIAL ENCOUNTER 08/23/2019 JORIBOBBY CABELLO L POWDER BLENDER AND POURER Ot Z87.09 PERSONAL HISTORY OF OTHER DISEASES OF TH 08/23/2019 JORI, BOBBY L POWDER BLENDER AND POURER Ot 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 LEFT ARTIFICIAL KNEE JOINT 08/23/2019 DAVID EDGAR, Marta CHAIDEZ Ot I49.3 VENTRICULAR PREMATURE DEPOLARIZATION 08/23/2019 DAVID EDGAR, Marta CHAIDEZ Ot R42 DIZZINESS AND GIDDINESS 08/23/2019 DAVID EDGAR, Marta CHAIDEZ Ot R55 SYNCOPE AND COLLAPSE 08/23/2019 DAVID EDGAR, Marta CHAIDEZ Ot R07.9 CHEST PAIN, UNSPECIFIED 08/23/2019 DAVID EDGAR, Marta CHAIDEZ Ot I49.3 VENTRICULAR PREMATURE DEPOLARIZATION 08/23/2019 Marta HERNANDEZ MD Ot R42 DIZZINESS AND GIDDINESS 08/23/2019 Marta HERNANDEZ MD Ot R55 SYNCOPE AND COLLAPSE 08/23/2019 OSCAR KELLER APRN Ot G47.10 HYPERSOMNIA, UNSPECIFIED 08/23/2019 OSCAR KELLER APRN Ot J43.9 EMPHYSEMA, UNSPECIFIED 08/23/2019 OSCAR KELLER APRN Ot G47.10 HYPERSOMNIA, UNSPECIFIED Procedures Code Description Performed By Performed On [id number] PRESYBETERIAN OF CARDIAC RHYTHM, SINGLE 08/15/2019 Results Test Result Range Complete urinalysis with [...] with reflex to culture CULTURE PENDING NRG Bacterial urine culture - 06/12/19 06:00 Bacterial urine culture 3 OR MORE NRG COLONY COUNT 20,000 CFU/ML NRG FTX;REPORTABLE GRAM POSITIVES, SUGGESTING PROBABLE NRG FREE TEXT ENTRY 2 COLLECTION CONTAMINATION WITH SKIN NADEEN NRG FREE TEXT ENTRY 3 NO SUSCEPTIBILITY PERFORMED NRG Complete blood count (CBC) with automated [...] blood basophil count (count/volume) 0.1 10*3/uL 0.0-0.1 Blood lactic acid measurement (moles/volume) - 06/12/19 06:04 Blood lactic acid measurement (moles/volume) 1.88 mmol/L 0.50- 2.00 PT panel in platelet poor plasma by coagulation assay - 06/12/19 06:04 Prothrombin time (PT) in platelet poor plasma by coagulation assay 13.6 s 12.2-14.7 INR in platelet poor plasma or blood by coagulation assay 1.0 0.8-1.4 Activated partial thromboplastin time (aPTT) in platelet poor plasma bycoagulation assay - 06/12/19 06:04 Activated partial thromboplastin time (aPTT) in platelet poor plasma bycoagulation assay 29 s 24-35 Comprehensive metabolic panel - 06/12/19 06:04 Serum or plasma sodium measurement (moles/volume) 140 mmol/L 135-145 Serum or plasma potassium measurement (moles/volume) 3.8 mmol/L 3.6-5.0 Serum or plasma chloride measurement (moles/volume) 105 mmol/L 98-107 Carbon dioxide 20 mmol/L 21-32 Serum or plasma anion gap determination (moles/volume) 15 mmol/L 5-14 Serum or plasma urea nitrogen measurement (mass/volume) 12 mg/dL 7-18 Serum or plasma creatinine measurement (mass/volume) 0.86 mg/dL 0.60-1.30 Serum or plasma urea nitrogen/creatinine mass ratio 14 NRG Serum or plasma creatinine measurement with calculation of estimated glomerular filtration rate > NRG Serum or plasma glucose measurement (mass/volume) 105 mg/dL 70-105 Serum or plasma calcium measurement (mass/volume) 9.3 mg/dL 8.5-10.1 Serum or plasma total bilirubin measurement (mass/volume) 0.6 mg/dL 0.1-1.0 Serum or plasma alkaline phosphatase measurement (enzymatic activity/volume) 71 U/L 40-136 Serum or plasma aspartate aminotransferase measurement (enzymatic activity/volume) 19 U/L 5-34 Serum or plasma alanine aminotransferase measurement (enzymatic activity/volume) 19 U/L 0-55 Serum or plasma protein measurement (mass/volume) 7.2 g/dL 6.4-8.2 Serum or plasma albumin measurement (mass/volume) 4.4 g/dL 3.2-4.5 CALCIUM CORRECTED 9.0 mg/dL 8.5-10.1 Serum or plasma troponin i.cardiac measurement (mass/volume) - 06/12/19 06:04 Serum or plasma troponin i.cardiac measurement (mass/volume) < ng/mL <0.028 Serum or plasma lithium measurement (moles/volume) - 06/12/19 06:04 BNP PT 864.0 pg/mL <100.0 Bacterial blood culture - 06/12/19 06:04 Bacterial blood culture NG NRG Arterial blood gas measurement - 06/12/19 06:08 [...] NRG Measurement of body temperature 99.3 NRG Bacterial blood culture - 06/12/19 06:33 Bacterial blood culture NG NRG Complete blood count (CBC) with automated white blood cell (WBC) differential - 06/13/19 05:00 Blood leukocytes automated count (number/volume) 10.7 10*3/uL 4.3-11.0 Blood erythrocytes automated count (number/volume) 4.37 10*6/uL 4.35-5.85 Venous blood hemoglobin measurement (mass/volume) 14.2 g/dL 13.3-17.7 Blood hematocrit (volume fraction) 43 % 40-54 Automated erythrocyte mean corpuscular volume 98 [foz_us] 80-99 Automated erythrocyte mean corpuscular hemoglobin (mass per erythrocyte) 33 pg 25-34 Automated erythrocyte mean corpuscular hemoglobin concentration measurement (mass/volume) 33 g/dL 32-36 Automated erythrocyte distribution width ratio 13.3 % 10.0- 14.5 Automated blood platelet count (count/volume) 181 10*3/uL 130-400 Automated blood platelet mean volume measurement 12.0 [foz_us] 7.4-10.4 Automated blood neutrophils/100 leukocytes 93 % 42-75 Automated blood lymphocytes/100 leukocytes 4 % 12-44 Blood monocytes/100 leukocytes 3 % 0-12 Automated blood eosinophils/100 leukocytes 0 % 0-10 Automated blood basophils/100 leukocytes 0 % 0-10 Blood neutrophils automated count (number/volume) 10.0 10*3 1.8-7.8 Blood lymphocytes automated count (number/volume) 0.4 10*3 1.0-4.0 Blood monocytes automated count (number/volume) 0.3 10*3 0.0- 1.0 Automated eosinophil count 0.0 10*3/uL 0.0-0.3 Automated blood basophil count (count/volume) 0.0 10*3/uL 0.0-0.1 Comprehensive metabolic panel - 06/13/19 05:00 Serum or plasma sodium measurement (moles/volume) 141 mmol/L 135-145 Serum or plasma potassium measurement (moles/volume) 3.7 mmol/L 3.6-5.0 Serum or plasma chloride measurement (moles/volume) 106 mmol/L 98-107 Carbon dioxide 21 mmol/L 21-32 Serum or plasma anion gap determination (moles/volume) 14 mmol/L 5-14 Serum or plasma urea nitrogen measurement (mass/volume) 14 mg/dL 7-18 Serum or plasma creatinine measurement (mass/volume) 0.83 mg/dL 0.60-1.30 Serum or plasma urea nitrogen/creatinine mass ratio 17 NRG Serum or plasma creatinine measurement with calculation of estimated glomerular filtration rate > NRG Serum or plasma glucose measurement (mass/volume) 121 mg/dL 70-105 Serum or plasma calcium measurement (mass/volume) 9.7 mg/dL 8.5-10.1 Serum or plasma total bilirubin measurement (mass/volume) 0.6 mg/dL 0.1-1.0 Serum or plasma alkaline phosphatase measurement (enzymatic activity/volume) 68 U/L 40-136 Serum or plasma aspartate aminotransferase measurement (enzymatic activity/volume) 18 U/L 5-34 Serum or plasma alanine aminotransferase measurement (enzymatic activity/volume) 15 U/L 0-55 Serum or plasma protein measurement (mass/volume) 6.8 g/dL 6.4-8.2 Serum or plasma albumin measurement (mass/volume) 4.1 g/dL 3.2-4.5 CALCIUM CORRECTED 9.6 mg/dL 8.5-10.1 Manual absolute plasma cell count - 06/13/19 05:00 Blood monocytes/100 leukocytes 3 % NRG Manual blood segmented neutrophils/100 leukocytes 90 % NRG Blood band neutrophils/100 leukocytes 4 % NRG Manual blood lymphocytes/100 leukocytes 3 % NRG Blood erythrocyte morphology finding identification NORMAL NRG PT panel in platelet poor plasma by coagulation assay - 08/14/19 12:49 Prothrombin time (PT) in platelet poor plasma by coagulation assay 14.7 s 12.2-14.7 INR in platelet poor plasma or blood by coagulation assay 1.1 0.8-1.4 Activated partial thromboplastin time (aPTT) in platelet poor plasma bycoagulation assay - 08/14/19 12:49 Activated partial thromboplastin time (aPTT) in platelet poor plasma bycoagulation assay 30 s 24-35 Complete blood count (CBC) with automated white blood cell (WBC) differential - 08/14/19 12:49 Blood leukocytes automated count (number/volume) 10.3 10*3/uL 4.3-11.0 Blood erythrocytes automated count (number/volume) 4.29 10*6/uL 4.35-5.85 Venous blood hemoglobin measurement (mass/volume) 13.8 g/dL 13.3-17.7 Blood hematocrit (volume fraction) 41 % 40-54 Automated erythrocyte mean corpuscular volume 96 [foz_us] 80-99 Automated erythrocyte mean corpuscular hemoglobin (mass per erythrocyte) 32 pg 25-34 Automated erythrocyte mean corpuscular hemoglobin concentration measurement (mass/volume) 33 g/dL 32-36 Automated erythrocyte distribution width ratio 14.8 % 10.0- 14.5 Automated blood platelet count (count/volume) 271 10*3/uL 130-400 Automated blood platelet mean volume measurement 11.6 [foz_us] 7.4-10.4 Automated blood neutrophils/100 leukocytes 72 % 42-75 Automated blood lymphocytes/100 leukocytes 16 % 12-44 Blood monocytes/100 leukocytes 11 % 0-12 Automated blood eosinophils/100 leukocytes 1 % 0-10 Automated blood basophils/100 leukocytes 0 % 0-10 Blood neutrophils automated count (number/volume) 7.4 10*3 1.8-7.8 Blood lymphocytes automated count (number/volume) 1.6 10*3 1.0-4.0 Blood monocytes automated count (number/volume) 1.1 10*3 0.0- 1.0 Automated eosinophil count 0.1 10*3/uL 0.0-0.3 Automated blood basophil count (count/volume) 0.0 10*3/uL 0.0-0.1 Comprehensive metabolic panel - 08/14/19 12:49 Serum or plasma sodium measurement (moles/volume) 141 mmol/L 135-145 Serum or plasma potassium measurement (moles/volume) 3.7 mmol/L 3.6-5.0 Serum or plasma chloride measurement (moles/volume) 107 mmol/L 98-107 Carbon dioxide 23 mmol/L 21-32 Serum or plasma anion gap determination (moles/volume) 11 mmol/L 5-14 Serum or plasma urea nitrogen measurement (mass/volume) 11 mg/dL 7-18 Serum or plasma creatinine measurement (mass/volume) 0.87 mg/dL 0.60-1.30 Serum or plasma urea nitrogen/creatinine mass ratio 13 NRG Serum or plasma creatinine measurement with calculation of estimated glomerular filtration rate > NRG Serum or plasma glucose measurement (mass/volume) 91 mg/dL 70-105 Serum or plasma calcium measurement (mass/volume) 9.5 mg/dL 8.5-10.1 Serum or plasma total bilirubin measurement (mass/volume) 1.0 mg/dL 0.1-1.0 Serum or plasma alkaline phosphatase measurement (enzymatic activity/volume) 74 U/L 40-136 Serum or plasma aspartate aminotransferase measurement (enzymatic activity/volume) 17 U/L 5-34 Serum or plasma alanine aminotransferase measurement (enzymatic activity/volume) 15 U/L 0-55 Serum or plasma protein measurement (mass/volume) 6.5 g/dL 6.4-8.2 Serum or plasma albumin measurement (mass/volume) 4.0 g/dL 3.2-4.5 CALCIUM CORRECTED 9.5 mg/dL 8.5-10.1 Magnesium - 08/14/19 12:49 Magnesium 2.1 mg/dL 1.6-2.4 Serum or plasma creatine kinase measurement (enzymatic activity/volume) - 08/14/19 12:49 Serum or plasma creatine kinase measurement (enzymatic activity/volume) 105 U/L 30-200 Serum or plasma creatine kinase MB measurement (enzymatic activity/volume) - 08/14/19 12:49 Serum or plasma creatine kinase MB measurement (enzymatic activity/volume) 3.9 ng/mL <6.6 Serum or plasma lithium measurement (moles/volume) - 08/14/19 12:49 BNP PT 635.5 pg/mL <100.0 Serum or plasma troponin i.cardiac measurement (mass/volume) - 08/14/19 12:49 Serum or plasma troponin i.cardiac measurement (mass/volume) < ng/mL <0.028 Myoglobin, serum - 08/14/19 12:49 Myoglobin, serum 91.8 ng/mL 10.0-92.0 Serum or plasma thyrotropin measurement by detection limit <=0.05 miu/l (units/volume) - 08/14/19 12:49 Serum or plasma thyrotropin measurement by detection limit <=0.05 miu/l (units/volume) 0.85 u[iU]/mL 0.35-4.94 Serum or plasma ethanol measurement (mass/volume) - 08/14/19 12:49 Serum or plasma ethanol measurement (mass/volume) < mg/dL <10 Complete urinalysis with reflex to culture - 08/14/19 14:42 Urine color determination YELLOW NRG Urine clarity determination CLEAR NRG Urine pH measurement by test strip 7 5-9 Specific gravity of urine by test strip 1.005 1.016-1.022 Urine protein assay by test strip, semi-quantitative NEGATIVE NEGATIVE Urine glucose detection by automated test strip NEGATIVE NEGATIVE Erythrocytes detection in urine sediment by light microscopy NEGATIVE NEGATIVE Urine ketones detection by automated test [...] detection in urine sediment by light microscopy NEGATIVE NRG Crystals detection in urine sediment by light microscopy NONE NRG Casts detection in urine sediment by light microscopy NONE NRG Mucus detection in urine sediment by light microscopy NEGATIVE NRG Complete urinalysis with reflex to culture NO NRG Urine drug screening test - 08/14/19 14:42 Urine phencyclidine detection by screening method NEGATIVE NEGATIVE Urine benzodiazepines detection by screening method NEGATIVE NEGATIVE Urine cocaine detection NEGATIVE NEGATIVE Urine amphetamines detection by screening method NEGATIVE NEGATIVE Urine methamphetamine detection by screening method NEGATIVE NEGATIVE Urine cannabinoids detection by screening method POSITIVE NEGATIVE Urine opiates detection by screening method NEGATIVE NEGATIVE Urine barbiturates detection NEGATIVE NEGATIVE Screening urine tricyclic antidepressants detection NEGATIVE NEGATIVE Urine methadone detection by screening method NEGATIVE NEGATIVE Urine oxycodone detection NEGATIVE NEGATIVE Urine propoxyphene detection NEGATIVE NEGATIVE Serum or plasma troponin i.cardiac measurement (mass/volume) - 08/14/19 15:55 Serum or plasma troponin i.cardiac measurement (mass/volume) < ng/mL <0.028 Serum or plasma troponin i.cardiac measurement (mass/volume) - 08/14/19 22:01 Serum or plasma troponin i.cardiac measurement (mass/volume) < ng/mL <0.028 Complete blood count (CBC) with automated white blood cell (WBC) differential - 08/15/19 03:11 Blood leukocytes automated count (number/volume) 6.3 10*3/uL 4.3-11.0 Blood erythrocytes automated count (number/volume) 4.63 10*6/uL 4.35-5.85 Venous blood hemoglobin measurement (mass/volume) 14.5 g/dL 13.3-17.7 Blood hematocrit (volume fraction) 44 % 40-54 Automated erythrocyte mean corpuscular volume 96 [foz_us] 80-99 Automated erythrocyte mean corpuscular hemoglobin (mass per erythrocyte) 31 pg 25-34 Automated erythrocyte mean corpuscular hemoglobin concentration measurement (mass/volume) 33 g/dL 32-36 Automated erythrocyte distribution width ratio 14.7 % 10.0- 14.5 Automated blood platelet count (count/volume) 234 10*3/uL 130-400 Automated blood platelet mean volume measurement 11.0 [foz_us] 7.4-10.4 Automated blood neutrophils/100 leukocytes 89 % 42-75 Automated blood lymphocytes/100 leukocytes 7 % 12-44 Blood monocytes/100 leukocytes 4 % 0-12 Automated blood eosinophils/100 leukocytes 0 % 0-10 Automated blood basophils/100 leukocytes 0 % 0-10 Blood neutrophils automated count (number/volume) 5.6 10*3 1.8-7.8 Blood lymphocytes automated count (number/volume) 0.4 10*3 1.0-4.0 Blood monocytes automated count (number/volume) 0.3 10*3 0.0- 1.0 Automated eosinophil count 0.0 10*3/uL 0.0-0.3 Automated blood basophil count (count/volume) 0.0 10*3/uL 0.0-0.1 Comprehensive metabolic panel - 08/15/19 03:11 Serum or plasma sodium measurement (moles/volume) 141 mmol/L 135-145 Serum or plasma potassium measurement (moles/volume) 3.2 mmol/L 3.6-5.0 Serum or plasma chloride measurement (moles/volume) 102 mmol/L 98-107 Carbon dioxide 21 mmol/L 21-32 Serum or plasma anion gap determination (moles/volume) 18 mmol/L 5-14 Serum or plasma urea nitrogen measurement (mass/volume) 18 mg/dL 7-18 Serum or plasma creatinine measurement (mass/volume) 1.19 mg/dL 0.60-1.30 Serum or plasma urea nitrogen/creatinine mass ratio 15 NRG Serum or plasma creatinine measurement with calculation of estimated glomerular filtration rate 60 NRG Serum or plasma glucose measurement (mass/volume) 141 mg/dL 70-105 Serum or plasma calcium measurement (mass/volume) 9.6 mg/dL 8.5-10.1 Serum or plasma total bilirubin measurement (mass/volume) 0.8 mg/dL 0.1-1.0 Serum or plasma alkaline phosphatase measurement (enzymatic activity/volume) 69 U/L 40-136 Serum or plasma aspartate aminotransferase measurement (enzymatic activity/volume) 16 U/L 5-34 Serum or plasma alanine aminotransferase measurement (enzymatic activity/volume) 16 U/L 0-55 Serum or plasma protein measurement (mass/volume) 6.9 g/dL 6.4-8.2 Serum or plasma albumin measurement (mass/volume) 4.3 g/dL 3.2-4.5 CALCIUM CORRECTED 9.4 mg/dL 8.5-10.1 Manual absolute plasma cell count - 08/15/19 03:11 Blood monocytes/100 leukocytes 1 % NRG Manual blood segmented neutrophils/100 leukocytes 93 % NRG Manual blood lymphocytes/100 leukocytes 6 % NRG Magnesium - 08/15/19 03:11 Magnesium 2.1 mg/dL 1.6-2.4 Whole blood basic metabolic panel - 08/16/19 03:11 Serum or plasma sodium measurement (moles/volume) 143 mmol/L 135-145 Serum or plasma potassium measurement (moles/volume) 3.3 mmol/L 3.6-5.0 Serum or plasma chloride measurement (moles/volume) 107 mmol/L 98-107 Carbon dioxide 24 mmol/L 21-32 Serum or plasma anion gap determination (moles/volume) 12 mmol/L 5-14 Serum or plasma urea nitrogen measurement (mass/volume) 19 mg/dL 7-18 Serum or plasma creatinine measurement (mass/volume) 1.14 mg/dL 0.60-1.30 Serum or plasma urea nitrogen/creatinine mass ratio 17 NRG Serum or plasma creatinine measurement with calculation of estimated glomerular filtration rate > NRG Serum or plasma glucose measurement (mass/volume) 107 mg/dL 70-105 Serum or plasma calcium measurement (mass/volume) 8.9 mg/dL 8.5-10.1 Encounters ACCT No. Visit Date/Time Discharge Status Pt. Type Provider Facility Loc./Unit Complaint [id number] 08/23/2019 19:43:00 08/24/2019 06:10:00 DIS Outpatient OSCAR KELLER APRN [facility] SLEEP DYSPNEA,EXCESSIVE SLEEPINESS [id number] 08/22/2019 09:01:00 08/22/2019 23:59:59 CLS Outpatient OSCAR KELLER APRN [facility] RAD DYSPNEA,EXCESSIVE SLEEPINESS [id number] 08/18/2019 07:39:00 08/18/2019 23:59:59 CLS Outpatient Marta HERNANDEZ MD [facility] CARD CHEST PAIN [id number] 08/15/2019 13:48:00 08/16/2019 14:17:00 DIS Inpatient ISAI AVILA MD [facility] ICU CHF, ATRIAL FIB, COPD [id number] 08/03/2019 09:36:00 08/03/2019 23:59:59 CLS Outpatient OSCAR KELLER APRN [facility] PULM DYSPNEA,EXCESSIVE SLEEPINESS,COPD [id number] 07/06/2019 00:12:00 07/06/2019 23:59:59 CLS Preadmit Marta HERNANDEZ MD [facility] CARD DIZZINESS [id number] 04/06/2019 13:36:00 07/05/2019 00:01:00 DIS Outpatient Marta HERNANDEZ MD [facility] CARD DIZZINESS [id number] 06/12/2019 07:30:00 06/13/2019 17:08:00 DIS Inpatient BENJAMIN MOSER MD [facility] 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 [id number] 04/06/2019 13:30:00 04/06/2019 23:59:59 CLS Outpatient Marta HERNANDEZ MD [facility] CARD DIZZINESS [id number] 03/30/2019 10:34:00 03/30/2019 23:59:59 CLS Preadmit Marta HERNANDEZ MD [facility] CARD DIZZINESS,NEAR SYNCOPE [id number] 05/14/2018 08:55:00 05/14/2018 23:59:59 CLS Outpatient JORI BOBBYCharles Serrano APRN [facility] RAD R06.00 [id number] 07/11/2016 09:21:00 07/11/2016 13:40:00 DIS Outpatient RUSTAM COSME DO [facility] SDC SCREENING [id number] 07/09/2016 05:44:00 07/09/2016 11:21:00 DIS Outpatient RUSTAM COSME DO [facility] PREOP SCREENING [id number] 10/31/2015 11:16:00 10/31/2015 11:37:00 DIS Outpatient OSCAR KELLER APRN [facility] SLEEP SNORING, CHOKING IN SLEEP, EDS, HPN [id number] 08/24/2015 12:48:00 08/24/2015 23:59:59 CLS Outpatient OSCAR KELLER APRN [facility] RT COPD [id number] 08/24/2015 12:47:00 Document Registration [id number] 08/24/2015 12:47:00 Document Registration [id number] 08/24/2015 12:47:00 Document Registration [id number] 10/30/2011 12:45:00 Document Registration [id number] 10/27/2011 13:30:00 Document Registration [id number] 05/15/2011 12:43:00 Document Registration [id number] 04/17/2011 15:28:00 Document Registration
--- OUTSIDE RECORDS SUMMARY | 2019-09-03 22:11 | XMS REPORT | Continuity of Care Document ---
Author Organization Unknown Address Unknown Phone Unavailable Allergies Active Description Code Type Severity Reaction Onset Reported/Identified Relationship to Patient Clinical Status Yes Sulfa (Sulfonamide Antibiotics) [id number] Drug Allergy Unknown N/A 06/12/2019 Medications There [...] V58.61 08/24/2015 Ot V58.83 09/17/2015 OSCAR KELLER HOISTING MACHINE OPERATOR Ot 278.00 09/17/2015 OSCAR KELLER HOISTING MACHINE OPERATOR Ot 401.9 09/17/2015 TRACY KELLERINE Leno HOISTING MACHINE OPERATOR Ot 496 09/17/2015 TRACY KELLERINE Leno HOISTING MACHINE OPERATOR Ot 780.54 09/17/2015 TRACY KELLERINE E HOISTING MACHINE OPERATOR Ot 786.09 09/24/2015 TRACY KELLERINE E HOISTING MACHINE OPERATOR Ot 278.00 09/24/2015 OSCAR KELLER HOISTING MACHINE OPERATOR Ot 401.9 09/24/2015 OSCAR KELLER HOISTING MACHINE OPERATOR Ot 496 09/24/2015 TRACY KELLERINE E HOISTING MACHINE OPERATOR Ot 780.54 09/24/2015 TRACY KELLERINE Leno HOISTING MACHINE OPERATOR Ot 786.09 10/31/2015 OSCAR KELLER HOISTING MACHINE OPERATOR Ot G47.10 HYPERSOMNIA, UNSPECIFIED 10/31/2015 OSCAR KELLER HOISTING MACHINE OPERATOR Ot I10 ESSENTIAL (PRIMARY) HYPERTENSION 10/31/2015 OSCAR KELLER HOISTING MACHINE OPERATOR Ot J44.9 CHRONIC OBSTRUCTIVE PULMONARY DISEASE, U 10/31/2015 OSCAR KELLER HOISTING MACHINE OPERATOR Ot R06.83 SNORING 07/09/2016 RUSTAM COSME DO [...] Ruth Ot K63.5 POLYP OF COLON 07/19/2016 ADAH VAL SHINETT Ruth Ot Z12.11 ENCOUNTER FOR SCREENING FOR MALIGNANT NE 05/14/2018 OSCAR KELLER HOISTING MACHINE OPERATOR Ot 278.00 OBESITY, NOS 05/14/2018 OSCAR KELLER HOISTING MACHINE OPERATOR Ot 401.9 HYPERTENSION NOS 05/14/2018 OSCAR KELLER HOISTING MACHINE OPERATOR Ot 496 CHR AIRWAY OBSTRUCT NEC 05/14/2018 OSCAR KELLER HOISTING MACHINE OPERATOR Ot 780.54 HYPERSOMNIA, UNSPECIFIED 05/14/2018 OSCAR KELLER HOISTING MACHINE OPERATOR Ot 786.09 RESPIRATORY ABNORM NEC 05/17/2018 JORI, BOBBY L HOISTING MACHINE OPERATOR Ot M79.89 OTHER SPECIFIED SOFT TISSUE DISORDERS 05/17/2018 JORI, BOBBY L HOISTING MACHINE OPERATOR Ot R06.00 DYSPNEA, UNSPECIFIED 05/17/2018 JORI, BOBBY L HOISTING MACHINE OPERATOR Ot S22.42XA MULTIPLE FRACTURES OF RIBS, LEFT SIDE, I 05/17/2018 JORI, BOBBY L HOISTING MACHINE OPERATOR Ot W19.XXXA UNSPECIFIED FALL, INITIAL ENCOUNTER 05/17/2018 JORI, BOBBY L HOISTING MACHINE OPERATOR Ot Z87.09 PERSONAL HISTORY OF OTHER DISEASES OF TH 05/17/2018 JORI, BOBBY L HOISTING MACHINE OPERATOR Ot 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 LEFT ARTIFICIAL KNEE JOINT 05/17/2018 JORI, BOBBY L HOISTING MACHINE OPERATOR Ot M79.89 OTHER SPECIFIED SOFT TISSUE DISORDERS 05/17/2018 JORI, BOBBY L HOISTING MACHINE OPERATOR Ot R06.00 DYSPNEA, UNSPECIFIED 05/17/2018 JORI, BOBBY L HOISTING MACHINE OPERATOR Ot R10.9 UNSPECIFIED ABDOMINAL PAIN 05/17/2018 JORI, BOBBY L HOISTING MACHINE OPERATOR Ot S22.42XA MULTIPLE FRACTURES OF RIBS, LEFT SIDE, I 05/17/2018 JORI, BOBBY L HOISTING MACHINE OPERATOR Ot W19.XXXA UNSPECIFIED FALL, INITIAL ENCOUNTER 05/17/2018 JORI, BOBBY L HOISTING MACHINE OPERATOR Ot Z87.09 PERSONAL HISTORY OF OTHER DISEASES OF TH 05/17/2018 JORI, BOBBY L HOISTING MACHINE OPERATOR Ot 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 LEFT ARTIFICIAL KNEE JOINT 06/07/2018 JORI, OBBBY L HOISTING MACHINE OPERATOR Ot M79.89 OTHER SPECIFIED SOFT TISSUE DISORDERS 06/07/2018 JORI, BOBBY L HOISTING MACHINE OPERATOR Ot R06.00 DYSPNEA, UNSPECIFIED 06/07/2018 JORI, BOBBY L HOISTING MACHINE OPERATOR Ot R10.9 UNSPECIFIED ABDOMINAL PAIN 06/07/2018 JORI, BOBBY L HOISTING MACHINE OPERATOR Ot S22.42XA MULTIPLE FRACTURES OF RIBS, LEFT SIDE, I 06/07/2018 JORI, BOBBY L HOISTING MACHINE OPERATOR Ot W19.XXXA UNSPECIFIED FALL, INITIAL ENCOUNTER 06/07/2018 JORI, BOBBY L HOISTING MACHINE OPERATOR Ot Z87.09 PERSONAL HISTORY OF OTHER DISEASES OF TH 06/07/2018 JORI, BOBBY L HOISTING MACHINE OPERATOR Ot 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 LEFT ARTIFICIAL KNEE JOINT 03/30/2019 OSCAR KELLER HOISTING MACHINE OPERATOR Ot 278.00 OBESITY, NOS 03/30/2019 OSCAR KELLER HOISTING MACHINE OPERATOR Ot 401.9 HYPERTENSION NOS 03/30/2019 OSCAR KELLER HOISTING MACHINE OPERATOR Ot 496 CHR AIRWAY OBSTRUCT NEC 03/30/2019 OSCAR KELLER HOISTING MACHINE OPERATOR Ot 780.54 HYPERSOMNIA, UNSPECIFIED 03/30/2019 OSCAR KELLER E HOISTING MACHINE OPERATOR Ot 786.09 RESPIRATORY ABNORM NEC 03/30/2019 JORI, BOBBY L HOISTING MACHINE OPERATOR Ot M79.89 OTHER SPECIFIED SOFT TISSUE DISORDERS 03/30/2019 JORI, BOBBY L HOISTING MACHINE OPERATOR Ot R06.00 DYSPNEA, UNSPECIFIED 03/30/2019 JORI, BOBBY L HOISTING MACHINE OPERATOR Ot R10.9 UNSPECIFIED ABDOMINAL PAIN 03/30/2019 JORI, BOBBY L HOISTING MACHINE OPERATOR Ot S22.42XA MULTIPLE FRACTURES OF RIBS, LEFT SIDE, I 03/30/2019 JORI, BOBBY L HOISTING MACHINE OPERATOR Ot W19.XXXA UNSPECIFIED FALL, INITIAL ENCOUNTER 03/30/2019 JORI, BOBBY L HOISTING MACHINE OPERATOR Ot Z87.09 PERSONAL HISTORY OF OTHER DISEASES OF TH 03/30/2019 JORI, BOBBY L HOISTING MACHINE OPERATOR Ot 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 LEFT ARTIFICIAL KNEE JOINT 03/30/2019 OSCAR KELLER HOISTING MACHINE OPERATOR Ot 278.00 OBESITY, NOS 03/30/2019 OSCAR KELLER HOISTING MACHINE OPERATOR Ot 401.9 HYPERTENSION NOS 03/30/2019 OSCAR KELLER HOISTING MACHINE OPERATOR Ot 496 CHR AIRWAY OBSTRUCT NEC 03/30/2019 OSCAR KELLER HOISTING MACHINE OPERATOR Ot 780.54 HYPERSOMNIA, UNSPECIFIED 03/30/2019 OSCAR KELLER HOISTING MACHINE OPERATOR Ot 786.09 RESPIRATORY ABNORM NEC 03/30/2019 JORI, BOBBY L HOISTING MACHINE OPERATOR Ot M79.89 OTHER SPECIFIED SOFT TISSUE DISORDERS 03/30/2019 JORI, BOBBY L HOISTING MACHINE OPERATOR Ot R06.00 DYSPNEA, UNSPECIFIED 03/30/2019 JORI, BOBBY L HOISTING MACHINE OPERATOR Ot R10.9 UNSPECIFIED ABDOMINAL PAIN 03/30/2019 JORI, BOBBY L HOISTING MACHINE OPERATOR Ot S22.42XA MULTIPLE FRACTURES OF RIBS, LEFT SIDE, I 03/30/2019 JORI, BOBBY L HOISTING MACHINE OPERATOR Ot W19.XXXA UNSPECIFIED FALL, INITIAL ENCOUNTER 03/30/2019 JORI, BOBBY L HOISTING MACHINE OPERATOR Ot Z87.09 PERSONAL HISTORY OF OTHER DISEASES OF TH 03/30/2019 JORI, BOBBY L HOISTING MACHINE OPERATOR Ot 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00 DYSPNEA, UNSPECIFIED 03/30/2019 JORI, BOBBY L HOISTING MACHINE OPERATOR Ot R10.9 UNSPECIFIED ABDOMINAL PAIN 03/30/2019 JORI, BOBBY L HOISTING MACHINE OPERATOR Ot S22.42XA MULTIPLE FRACTURES OF RIBS, LEFT SIDE, I 03/30/2019 JORI, BOBBY L HOISTING MACHINE OPERATOR Ot W19.XXXA UNSPECIFIED FALL, INITIAL ENCOUNTER 03/30/2019 JORI, BOBBY L HOISTING MACHINE OPERATOR Ot Z87.09 PERSONAL HISTORY OF OTHER DISEASES OF TH 03/30/2019 JORI, BOBBY L HOISTING MACHINE OPERATOR Ot 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 LEFT ARTIFICIAL KNEE JOINT 03/30/2019 OSCAR KELLER HOISTING MACHINE OPERATOR Ot 278.00 OBESITY, NOS 03/30/2019 OSCAR KELLER HOISTING MACHINE OPERATOR Ot 401.9 HYPERTENSION NOS 03/30/2019 OSCAR KELLER HOISTING MACHINE OPERATOR Ot 496 CHR AIRWAY OBSTRUCT NEC 03/30/2019 OSCAR KELLER HOISTING MACHINE OPERATOR Ot 780.54 HYPERSOMNIA, UNSPECIFIED 03/30/2019 OSCAR KELLER HOISTING MACHINE OPERATOR Ot 786.09 RESPIRATORY ABNORM NEC 03/30/2019 JORI, BOBBY L HOISTING MACHINE OPERATOR Ot M79.89 OTHER SPECIFIED SOFT TISSUE DISORDERS 03/30/2019 JORI, BOBBY L HOISTING MACHINE OPERATOR Ot R06.00 DYSPNEA, UNSPECIFIED 03/30/2019 JORI, BOBBY L HOISTING MACHINE OPERATOR Ot R10.9 UNSPECIFIED ABDOMINAL PAIN 03/30/2019 JORI, BOBBY L HOISTING MACHINE OPERATOR Ot S22.42XA MULTIPLE FRACTURES OF RIBS, LEFT SIDE, I 03/30/2019 JORI, BOBBY L HOISTING MACHINE OPERATOR Ot W19.XXXA UNSPECIFIED FALL, INITIAL ENCOUNTER 03/30/2019 JORI, BOBBY L HOISTING MACHINE OPERATOR Ot Z87.09 PERSONAL HISTORY OF OTHER DISEASES OF TH 03/30/2019 JORI, BOBBY L HOISTING MACHINE OPERATOR Ot 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 LEFT ARTIFICIAL KNEE JOINT 04/06/2019 OSCAR KELLER HOISTING MACHINE OPERATOR Ot 278.00 OBESITY, NOS 04/06/2019 TRACY KELLERINE E HOISTING MACHINE OPERATOR Ot 401.9 HYPERTENSION NOS 04/06/2019 TRACY KELLERINE E HOISTING MACHINE OPERATOR Ot 496 CHR AIRWAY OBSTRUCT NEC 04/06/2019 TRACY KELLERINE E HOISTING MACHINE OPERATOR Ot 780.54 HYPERSOMNIA, UNSPECIFIED 04/06/2019 TRACY KELLERINE E HOISTING MACHINE OPERATOR Ot 786.09 RESPIRATORY ABNORM NEC 04/06/2019 JORI, BOBBY L HOISTING MACHINE OPERATOR Ot M79.89 OTHER SPECIFIED SOFT TISSUE DISORDERS 04/06/2019 JORI, BOBBY L HOISTING MACHINE OPERATOR Ot R06.00 DYSPNEA, UNSPECIFIED 04/06/2019 JORI, BOBBY L HOISTING MACHINE OPERATOR Ot R10.9 UNSPECIFIED ABDOMINAL PAIN 04/06/2019 JORI, BOBBY L HOISTING MACHINE OPERATOR Ot S22.42XA MULTIPLE FRACTURES OF RIBS, LEFT SIDE, I 04/06/2019 JORI, BBOBY L HOISTING MACHINE OPERATOR Ot W19.XXXA UNSPECIFIED FALL, INITIAL ENCOUNTER 04/06/2019 JORI, BOBBY L HOISTING MACHINE OPERATOR Ot Z87.09 PERSONAL HISTORY OF OTHER DISEASES OF 04/06/2019 JORI, BOBBY L HOISTING MACHINE OPERATOR Ot 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 LEFT ARTIFICIAL KNEE JOINT 04/06/2019 OSCAR KELLER HOISTING MACHINE OPERATOR Ot 278.00 OBESITY, NOS 04/06/2019 TRACY KELLERINE E HOISTING MACHINE OPERATOR Ot 401.9 HYPERTENSION NOS 04/06/2019 OSCAR KELLER HOISTING MACHINE OPERATOR Ot 496 CHR AIRWAY OBSTRUCT NEC 04/06/2019 OSCAR KELLER E HOISTING MACHINE OPERATOR Ot 780.54 HYPERSOMNIA, UNSPECIFIED 04/06/2019 TRACY KELLERINE E HOISTING MACHINE OPERATOR Ot 786.09 RESPIRATORY ABNORM NEC 04/06/2019 JORI, BOBBY L HOISTING MACHINE OPERATOR Ot M79.89 OTHER SPECIFIED SOFT TISSUE DISORDERS 04/06/2019 JORI, BOBBY L HOISTING MACHINE OPERATOR Ot R06.00 DYSPNEA, UNSPECIFIED 04/06/2019 JORI, BOBBY L HOISTING MACHINE OPERATOR Ot R10.9 UNSPECIFIED ABDOMINAL PAIN 04/06/2019 JORI, BOBBY L HOISTING MACHINE OPERATOR Ot S22.42XA MULTIPLE FRACTURES OF RIBS, LEFT SIDE, I 04/06/2019 JORI, BOBBY L HOISTING MACHINE OPERATOR Ot W19.XXXA UNSPECIFIED FALL, INITIAL ENCOUNTER 04/06/2019 [...] HISTORY OF NICOTINE DEPENDENCE 06/14/2019 OSCAR KELLER HOISTING MACHINE OPERATOR Ot 278.00 OBESITY, NOS 06/14/2019 OSCAR KELLER HOISTING MACHINE OPERATOR Ot 401.9 HYPERTENSION NOS 06/14/2019 OSCAR KELLER HOISTING MACHINE OPERATOR Ot 496 CHR AIRWAY OBSTRUCT NEC 06/14/2019 OSCAR KELLER HOISTING MACHINE OPERATOR Ot 780.54 HYPERSOMNIA, UNSPECIFIED 06/14/2019 OSCAR KELLER HOISTING MACHINE OPERATOR Ot 786.09 RESPIRATORY ABNORM NEC 06/14/2019 BOBBY HSIEH HOISTING MACHINE OPERATOR Ot M79.89 OTHER SPECIFIED SOFT TISSUE DISORDERS 06/14/2019 JORI, BOBBY L HOISTING MACHINE OPERATOR Ot R06.00 DYSPNEA, UNSPECIFIED 06/14/2019 JORIBOBBY HOISTING MACHINE OPERATOR Ot R10.9 UNSPECIFIED ABDOMINAL PAIN 06/14/2019 BOBBY HSIEH HOISTING MACHINE OPERATOR Ot S22.42XA MULTIPLE FRACTURES OF RIBS, LEFT SIDE, I 06/14/2019 BOBBY HSIEH HOISTING MACHINE OPERATOR Ot W19.XXXA UNSPECIFIED FALL, INITIAL ENCOUNTER 06/14/2019 BOBBY HSIEH HOISTING MACHINE OPERATOR Ot Z87.09 PERSONAL HISTORY OF OTHER DISEASES OF TH 06/14/2019 BOBBY HSIEH HOISTING MACHINE OPERATOR Ot 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 LEFT ARTIFICIAL KNEE JOINT 06/14/2019 DAVID EDGAR, Marta CHAIDEZ Ot I49.3 VENTRICULAR PREMATURE DEPOLARIZATION 06/14/2019 DAVID EDGAR, Marta CHAIDEZ Ot R42 DIZZINESS AND GIDDINESS 06/14/2019 DAVID EDGAR, Marta CHAIDEZ Ot R55 SYNCOPE AND COLLAPSE 06/14/2019 DAVID EDGAR, Marta CHAIDEZ Ot I49.3 VENTRICULAR PREMATURE DEPOLARIZATION 06/14/2019 DAVID EDGAR, M MD Ot R42 DIZZINESS AND GIDDINESS 06/14/2019 DAVID [...] R07.9 CHEST PAIN, UNSPECIFIED 08/23/2019 OSCAR KELLER HOISTING MACHINE OPERATOR Ot 278.00 OBESITY, NOS 08/23/2019 OSCAR KELLER HOISTING MACHINE OPERATOR Ot 401.9 HYPERTENSION NOS 08/23/2019 OSCAR KELLER HOISTING MACHINE OPERATOR Ot 496 CHR AIRWAY OBSTRUCT NEC 08/23/2019 OSCAR KELLER HOISTING MACHINE OPERATOR Ot 780.54 HYPERSOMNIA, UNSPECIFIED 08/23/2019 OSCAR KELLER HOISTING MACHINE OPERATOR Ot 786.09 RESPIRATORY ABNORM NEC 08/23/2019 JORI, BOBBY L HOISTING MACHINE OPERATOR Ot M79.89 OTHER SPECIFIED SOFT TISSUE DISORDERS 08/23/2019 JORI, BOBBY L HOISTING MACHINE OPERATOR Ot R06.00 DYSPNEA, UNSPECIFIED 08/23/2019 JORI, BOBBY L HOISTING MACHINE OPERATOR Ot R10.9 UNSPECIFIED ABDOMINAL PAIN 08/23/2019 JORI, BOBBY L HOISTING MACHINE OPERATOR Ot S22.42XA MULTIPLE FRACTURES OF RIBS, LEFT SIDE, I 08/23/2019 JORI, BOBBY L HOISTING MACHINE OPERATOR Ot W19.XXXA UNSPECIFIED FALL, INITIAL ENCOUNTER 08/23/2019 JORIOBBBY CABELLO L HOISTING MACHINE OPERATOR Ot Z87.09 PERSONAL HISTORY OF OTHER DISEASES OF TH 08/23/2019 JORI, BOBBY L HOISTING MACHINE OPERATOR Ot 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 LEFT ARTIFICIAL KNEE [...] Procedures Code Description Performed By Performed On [id number] JUDAISM OF CARDIAC RHYTHM, SINGLE 08/15/2019 Results Test [...] Status Pt. Type Provider Facility Loc./Unit Complaint [id number] 08/23/2019 19:43:00 08/24/2019 06:10:00 DIS Outpatient OSCAR KELLER APRN Via [facility] SLEEP DYSPNEA,EXCESSIVE SLEEPINESS [id number] 08/22/2019 09:01:00 08/22/2019 23:59:59 CLS Outpatient OSCAR KELLER APRN [facility] RAD DYSPNEA,EXCESSIVE SLEEPINESS [id number] 08/18/2019 07:39:00 08/18/2019 23:59:59 CLS Outpatient Marta HERNANDEZ MD [facility] CARD CHEST PAIN [id number] 08/15/2019 13:48:00 08/16/2019 14:17:00 DIS Inpatient ISAI AVILA MD [facility] ICU CHF, ATRIAL FIB, COPD [id number] 08/03/2019 09:36:00 08/03/2019 23:59:59 CLS Outpatient OSCAR KELLER APRN [facility] PULM DYSPNEA,EXCESSIVE SLEEPINESS,COPD [id number] 07/06/2019 00:12:00 07/06/2019 23:59:59 CLS Preadmit Marta HERNANDEZ MD [facility] CARD DIZZINESS [id number] 04/06/2019 13:36:00 07/05/2019 00:01:00 DIS Outpatient Marta HERNANDEZ MD [facility] CARD DIZZINESS [id number] 06/12/2019 07:30:00 06/13/2019 17:08:00 DIS Inpatient BENJAMIN MOSER MD [facility] 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 [id number] 04/06/2019 13:30:00 04/06/2019 23:59:59 CLS Outpatient Marta HERNANDEZ MD [facility] CARD DIZZINESS [id number] 03/30/2019 10:34:00 03/30/2019 23:59:59 CLS Preadmit Marta HERNANDEZ MD [facility] CARD DIZZINESS,NEAR SYNCOPE [id number] 05/14/2018 08:55:00 05/14/2018 23:59:59 CLS Outpatient JORI BOBBYCharles Serrano APRN [facility] RAD R06.00 [id number] 07/11/2016 09:21:00 07/11/2016 13:40:00 DIS Outpatient RUSTAM COSME DO [facility] SDC SCREENING [id number] 07/09/2016 05:44:00 07/09/2016 11:21:00 DIS Outpatient RUSTAM COSME DO [facility] PREOP SCREENING [id number] 10/31/2015 11:16:00 10/31/2015 11:37:00 DIS Outpatient OSCAR KELLER APRN [facility] SLEEP SNORING, CHOKING IN SLEEP, EDS, HPN [id number] 08/24/2015 12:48:00 08/24/2015 23:59:59 CLS Outpatient OSCAR KELLER APRN [facility] RT COPD [id number] 08/24/2015 12:47:00 Document Registration [id number] 08/24/2015 12:47:00 Document Registration [id number] 08/24/2015 12:47:00 Document Registration [id number] 10/30/2011 12:45:00 Document Registration [id number] 10/27/2011 13:30:00 Document Registration [id number] 05/15/2011 12:43:00 Document Registration [id number] 04/17/2011 15:28:00 Document Registration
== END 2019-08-16 14:17 | disposition home or self-care (01) | DRG 308 ==
LOC: EDUNIT# 12:27 → ER 12:28 → UNDOADMOB 14:02 → ICU 14:02 → OBSVTOIN 08-15 13:48 → INTOOBSV 08-15 13:48 → UNDODISIN 08-16 14:17
PROVIDERS: ADMIT Family Medicine; ATTEND Family Medicine
PROC: 5A2204Z Restoration of Cardiac Rhythm, Single (ICD-10-PCS; principal; 2019-08-15)
DX: I48.0 Paroxysmal atrial fibrillation (principal); I11.0 Hypertensive heart disease with heart failure; I50.31 Acute diastolic (congestive) heart failure; J44.1 Chronic obstructive pulmonary disease with (acute) exacerbation; E87.2 Acidosis; E87.6 Hypokalemia; M54.9 Dorsalgia, unspecified; M19.91 Primary osteoarthritis, unspecified site; Z87.891 Personal history of nicotine dependence; Z99.81 Dependence on supplemental oxygen; Z88.2 Allergy status to sulfonamides
CPT/HCPCS: 36415; 71045; 80048; 80053; 80306; 80320; 81000; 82550; 82553; 83735; 83874; 83880; 84443; 84484; 85007; 85025; 85027; 85610; 85730; 93005; 93041; 93306; 93312; 93320; 93325; 94640; 96372; 96374; 96375

== ENCOUNTER → 2019-08-18 | Outpatient (CLI) | payer BC, MEDICARE ==
[~2019-08-18] MED LIST changes: +AMIO200T4 PO; +APIX5TAB PO; +CLON0.2T PO; +DILT120C94 PO; +FLUT1BLS12 INH; +FURO40TA4 PO; +METO100T12 PO; +REGADENOSON 0.4 MG/5 ML SYR (LEXISCAN) IV ONE
[2019-08-18] MEDS: CATHETER FLUSH 10 ML SYR IV PRN ×2 (07:58→09:20)
[2019-08-18 09:17] VITALS: BP 130/88
--- NOTE | 2019-08-18 15:43 | Cardiology Stress Test Report ---
Stress Test Report Type of NM Stress Test: Test Type: LEXISCAN 0.4MG/5ML Date of Procedure/Referring: Date of Procedure: Aug 18, 2019 PCP Marta Molina MD Admitting Physician Win Verduzco MD Indications: Chest pain Baseline Heart Rate: 82 Baseline Blood Pressure: Blood Pressure Systolic: 130 Blood Pressure Diastolic: 88 Baseline EKG: Baseline EKG: sinus rhythm with PVCs Summary & Conclusion: Summary: The patient was brought to the stress lab after informed consent was taken. Stress test was performed according to the Lexiscan protocol. 0.4 mg of IV Lexiscan was given. Low-grade exercise was performed. Baseline EKG showed sinus rhythm at 82 BPM. Initial blood pressure was 130/88 mmHg. Maximum heart rate was 92 bpm and blood pressure 163/85 mmHg. Patient did not have any chest pain, arrhythmias or ST segment changes during the stress test. 10.74 mCi of Myoview were given for rest imaging and 31.8 mCi of Myoview given for stress imaging. Transient ischemic dilatation score 1.05, EF 43 percent. Normal wall motion. Small apical reversible defect. Conclusion: Pharmacological stress test was negative for ischemia. Mild low LV function with no wall motion abnormalities. Possible apical ischemia. Clinical correlation is recommended. Marta MOLINA MD Aug 18, 2019 15:43
== END ==
LOC: CARD 07:39
PROVIDERS: ATTEND Internal Medicine Interventional Cardiology
DX: R07.9 Chest pain, unspecified (principal)
CPT/HCPCS: 78452; 93017

== ENCOUNTER → 2019-08-22 | Outpatient (CLI) | payer MEDICARE ==
[~2019-08-22] MED LIST changes: -REGADENOSON 0.4 MG/5 ML SYR (LEXISCAN) IV ONE; +RT-ALBUTEROL SULF 2.5 MG/3 ML PRE-MIX VIAL INH ONE
[2019-08-22 09:39] LABS: BUN/CREATININE RATIO 15; CREATININE SERUM 0.87 MG/DL (0.60-1.30); GFR ESTIMATED > 60
--- NOTE | 2019-08-22 11:10 | Diagnostic Imaging Report ---
PROCEDURE: CT chest with contrast only. TECHNIQUE: Multiple contiguous axial images were obtained through the chest after administration of intravenous contrast. Auto Exposure Controls were utilized during the CT exam to meet ALARA standards for radiation dose reduction. INDICATION: Dyspnea and COPD. COMPARISON: No prior CT chest studies are available for comparison. FINDINGS: No axillary lymphadenopathy is identified. No definite mediastinal or hilar lymphadenopathy is detected. The heart does appear to be enlarged. No pericardial fluid is identified. There appears to be trace right pleural effusion. Parenchymal evaluation does show an area of linear scarring or atelectasis in the right upper lobe anteriorly. There is some slight thickening of the major fissure on the right as well. There are areas of atelectasis versus scarring in the right middle lobe and lingula. No discrete parenchymal mass or infiltrate is identified. The upper abdomen demonstrates a left renal cyst measuring 5.4 cm in diameter. The bony structures are nonacute. IMPRESSION: 1. Trace right pleural effusion. There are areas of scarring/atelectasis in the right upper lobe as well as right middle lobe and lingula. No discrete pulmonary mass or evidence of thoracic lymphadenopathy is detected. 2. Left renal cyst. Dictated by: Dictated on workstation # [id number]
== END ==
LOC: RAD 09:01
PROVIDERS: ATTEND Nurse Practitioner Family
DX: J43.9 Emphysema, unspecified (principal); N28.1 Cyst of kidney, acquired; G47.10 Hypersomnia, unspecified; G47.36 Sleep related hypoventilation in conditions classified elsewhere; G47.50 Parasomnia, unspecified
CPT/HCPCS: 36415; 71260; 82565; 84520; 94060; 94726; 94729

== ENCOUNTER 2019-10-30 05:44 | Inpatient (IN) | payer MEDICARE ==
[~2019-10-30] VITALS: Ht 171.5 cm; Wt 101.9 kg
[~2019-10-30 05:44] MED LIST changes: +ACET-2267 PO; +ALB0.5V NEB; +DILT-27 PO; +FURO80TA3 PO; +POTA10TA10 PO; +PRD20T PO; -RT-ALBUTEROL SULF 2.5 MG/3 ML PRE-MIX VIAL INH ONE
[2019-10-30] MEDS ORDERED: methylPREDNISolone 125 MG (Solu-MEDROL) VIAL IV STA (05:58)
[2019-10-30] MEDS ORDERED: RT-ALBUTEROL SULF 2.5 MG/3 ML PRE-MIX VIAL INH STA (05:58)
[2019-10-30] MEDS ORDERED: DEXAMETHASONE 4 MG/ML SDV (DECADRON) IH ONE (06:00)
[2019-10-30] MEDS ORDERED: RT-ALBUTEROL/IPRATROPIUM 3 ML (DUONEB) VIAL INH ONE (06:00)
[2019-10-30 06:18] LABS: BASOPHILS % (AUTO) 0 % (0-10); EOSINOPHILS # (AUTO) 0.1 10^3/uL (0.0-0.3); EOSINOPHILS % (AUTO) 1 % (0-10); HEMATOCRIT 40 % (40-54); HEMOGLOBIN 12.7 G/DL (13.3-17.7); LYMPHOCYTES # (AUTO) 0.8 X 10^3 (1.0-4.0); LYMPHOCYTES % (AUTO) 12 % (12-44); MEAN CORPUSCULAR HEMOGLOBIN 31 PG (25-34); MEAN CORPUSCULAR HGB CONC 32 G/DL (32-36); MEAN CORPUSCULAR VOLUME 97 FL (80-99); MEAN PLATELET VOLUME 11.5 FL (7.4-10.4); MONOCYTES # (AUTO) 0.6 X 10^3 (0.0-1.0); MONOCYTES % (AUTO) 9 % (0-12); NEUTROPHILS % (AUTO) 78 % (42-75); PLATELET COUNT 176 10^3/uL (130-400); RED CELL DISTRIBUTION WIDTH 16.2 % (10.0-14.5); WHITE BLOOD COUNT 6.4 10^3/uL (4.3-11.0)
--- NOTE | 2019-10-30 06:19 | ED Respiratory ---
General Chief Complaint: Respiratory Problems Stated Complaint: SOB Nursing Triage Note: Pt to Rm 5 via WC with c/o SOB that started last night. Pt reports Hx of COPD and CHF, wears 2-3L NC of O2 on daily basis. Pt on personal O2 5L NC on arrival, O2 84%. Pt denies any chest pain at this time. Pt has abdominal retractions on arrival as well. Source: patient, old records History of Present Illness Date Seen by Provider: Oct 30, 2019 Time Seen by Provider: 05:50 Initial Comments PT ARRIVES VIA POV FROM HOME--WHEELCHAIR ON ARRIVAL TO ER C/O SHORTNESS OF BREATH IS ONGOING PROBLEM, WORSE ALL DAY YESTERDAY, THEN "REAL BAD" SINCE AT LEAST 1800 YESTERDAY ( THIS IS , CLAIMS HE "DIDN'T EAT BIG MEALS" --BUT CANNOT STATE IF HE HAD HIGH SODIUM INTAKE ) WORSE WHEN LAYING DOWN STATES HE HAS USED ALBUTEROL NEBULIZER AT LEAST 6 TIMES SINCE 1800 YESTERDAY--NO RELIEF PT WEARS HOME O2 AT 2-3L/NC CONTINUOUSLY, BUT ARRIVES WITH HOME O2 TANK ON 5L/NC AND INITIAL O2 SAT IS 84% HAS HAD ONGOING INCREASE IN LEG SWELLING FOR THE LAST COUPLE OF MONTHS, STATES IT IS NOT ANY WORSE TODAY NO CHEST PAIN NO COUGH NO KNOWN FEVER, BUT STATES HE HAS "BEEN FEELING HOT AND COLD SOMETIMES" PT HAS CHF, PAROXYSMAL ATRIAL FIBRILLATION AND COPD PT WAS ADMITTED 10/04/19 FOR RESPIRATORY COMPLAINTS AND WAS IN CHF, WELL COPD EXACERBATION PT HAD CARDIAC CATH ON 10/04/19--MODERATE DISEASE OF LAD--NO INTERVENTION, ELEVATED LVEDP. ECHOCARDIOGRAM SHOWED EF 55-65%, WITH SEVERELY DILATED LEFT ATRIUM, MILD TO MODERATE AORTIC REGURG, MODERATE TRICUSPID REGURG PT STATES HIS LASIX DOSE WAS INCREASED AFTER LAST ADMIT, BUT STATES NO OTHER MEDICATION CHANGES STATES HE HAS NOT TAKEN ANY OF HIS MORNING MEDICATIONS PT IS NOT SURE IF HE HAS FOLLOWED UP WITH ANYONE SINCE HIS LAST HOSPITALIZATION OR NOT, BUT HE STATES HE IS SCHEDULED TO HAVE A CARDIAC DEVICE IMPLANTED THIS THURSDAY PT HAS A LONG HISTORY OF SMOKING 1 PPD X 50 YEARS, CLAIMS HE QUIT 6-7 YEARS AGO PT CONTINUES TO DRINK DAILY AT LEAST A 6 PACK/DAY PT ALSO SMOKES MARIJUANA ON A REGULAR BASIS "SINCE THE 1959'S" PT WITH LONG HISTORY OF NON-COMPLIANCE IN ALL ASPECTS OF CARE PT HAS HAD 3 ADMITS SINCE 06/12/19 FOR RESPIRATORY ISSUES--ALL LIKELY MULTIFACTORIAL--CHF, COPD, PAROXYSMAL ATRIAL FIBRILLATION PCP: DR. AVILA BANQUET PILOT: DR. HERNANDEZ KARDEX CLERK: DR. STEVENS Allergies and Home Medications Allergies Coded Allergies: Sulfa (Sulfonamide Antibiotics) (Verified Allergy, Unknown, 10/04/19) Home Medications Acetaminophen 500 Mg Tablet, 1,000 MG PO Q4H PRN for PAIN-MILD, (Reported) Albuterol Sulfate 8.5 Gm Hfa.aer.ad, 1-2 PUFF IH Q4H PRN for WHEEZING, (Reported) Albuterol Sulfate 2.5 Mg/0.5 Ml Vial.neb, 2.5 MG NEB Q4H PRN for SHORTNESS OF BREATH, (Reported) Amiodarone HCl 200 Mg Tablet, 200 MG PO BID, (Reported) Amlodipine Besylate 10 Mg Tablet, 10 MG PO DAILY, (Reported) Apixaban 5 Mg Tablet, 5 MG PO BID, (Reported) Diltiazem HCl 120 Mg Cap.er.24h, 120 MG PO DAILY, (Reported) Enalapril Maleate 20 Mg Tablet, 20 MG PO DAILY, (Reported) Fluticasone Propion/Salmeterol 1 Each Blst.w.dev, 1 PUFF INH BID, (Reported) Furosemide 80 Mg Tablet, 80 MG PO DAILY Prescribed by: PATRICIA REID on 10/06/19 0954 Hydrocodone/Acetaminophen 1 Each Tablet, 1 TAB PO Q4H PRN for PAIN-MODERATE, (Reported) Indomethacin 50 Mg Capsule, 50 MG PO DAILY PRN for GOUT PAIN, (Reported) Metoprolol Tartrate 100 Mg Tablet, 100 MG PO BID, (Reported) Potassium Chloride 10 Meq Tablet.er, 10 MEQ PO DAILY Prescribed by: PATRICIA REID on 10/06/19 0953 Prednisone 20 Mg Tab, 40 MG PO DAILY@0700 Prescribed by: PATRICIA REID on 10/06/19 0954 Patient Home Medication List Home Medication List Reviewed: Yes Review of Systems Review of Systems Constitutional: see HPI EENTM: no symptoms reported Respiratory: see HPI; No cough; dyspnea on exertion, orthopnea, short of breath, wheezing Cardiovascular: No chest pain; edema; No palpitations, No syncope Gastrointestinal: no symptoms reported Genitourinary: no symptoms reported Musculoskeletal: see HPI, other (LEG SWELLING) Skin: no symptoms reported Psychiatric/Neurological: No Symptoms Reported Hematologic/Lymphatic: No Symptoms Reported Immunological/Allergic: no symptoms reported Past Wufepyd-Nlebnd-Ecjwcz Hx Past Med/Social Hx: Reviewed and Corrections made Patient Social History Alcohol Use: Regular Use (AT LEAST A 6 PACK/DAY) Recreational Drug Use: Yes (THC ON REGULAR BASIS SINCE ) Drug of Choice: THC ON A REGULAR BASIS, SINCE THE Smoking Status: Former Smoker (1 PPD X 50 YEARS--STARTED AT AGE 17) Type Used: Cigarettes Former Smoker, Quit: Jun 01, 2013 Recent Foreign Travel: No Contact w/Someone Who Travel: No Recent Infectious Disease Expo: No Recent Hopitalizations: No Immunizations Up To Date Tetanus Booster (TDap): Unknown PED Vaccines UTD: Yes Date of Pneumonia Vaccine: Sep 14, 2014 Seasonal Allergies Seasonal Allergies: No Past Medical History Surgeries: Yes (RIGHT SHOULDER SURGERY X 2; LEFT KNEE SURGERY X 2; RIGHT KNEE SURGERY X 1; CARDIAC CATH 10/04/19--NO INTERVENTION) Appendectomy, Cardiac, Orthopedic Respiratory: Yes (O2 AT 2-3L/NC CONTINUOUSLYL ) Pneumonia, COPD Cardiac: Yes (INTERMITTENT ATRIAL FIBRILLATION; CARDIAC CATH 10/04/19--MODERATE DISEASE IN LAD/NO INTERVENTION, SEVERE LVEDP; ECHO 10/04/19--SEVERELY DILATED LEFT ATRIUM, WITH EF 55-65%, MILD TO MODERATE AORTIC REGURG, MODERATE TRICUSPID REGURG) Atrial Fibrillation, Chronic Edema/Swelling, Hypertension, Palpitations, Valvular Heart Disease Neurological: No Reproductive Disorders: No Genitourinary: No Gastrointestinal: No Musculoskeletal: Yes (BILATERAL KNEE SURGERIES, RIGHT SHOULDER SURGERIES) Degenerate Disk Disease, Arthritis, Chronic Back Pain Endocrine: No HEENT: No Cancer: No Psychosocial: No Integumentary: No Blood Disorders: No Family Medical History Asbestosis FH: CABG (coronary artery bypass surgery) 19 FATHER FH: breast cancer 19 MOTHER FH: uterine cancer 19 MOTHER Hypertension 19 FATHER Physical Exam Vital Signs - First Documented 10/30/19 10/30/19 05:46 05:53 Temp 36.7 Pulse 64 Resp 24 B/P (MAP) 163/88 (113) Pulse Ox 92 O2 Delivery Nasal Cannula O2 Flow Rate 5.00 FiO2 92 Capillary Refill : Less Than 3 Seconds Height: 5'9.00" Weight: 213lbs. 0.0oz. 96.316617ab; 32.00 BMI Method:Stated General Appearance: moderate distress (VERY DYSPNEIC ON ARRIVAL, BUT ABLE TO TALK IN FULL SENTENCES. 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, no motor/sensory deficits, alert, normal mood/affect, oriented x 3 Skin: normal color, warm/dry Focused Exam Lactate Level 10/30/19 05:58: Lactic Acid Level 1.20 Lactic Acid Level Laboratory Tests Test 10/30/19 05:58 Lactic Acid Level 1.20 MMOL/L (0.50-2.00) Progress/Results/Core Measures Suspected Sepsis Recent Fever Within 48 Hours: No Infection Criteria Present: None New/Unexplained Altered Menta: No Sepsis Screen: No Definite Risk SIRS Temperature: Pulse: 64 Respiratory Rate: 24 Laboratory Tests 10/30/19 05:58: White Blood Count 6.4 Blood Pressure 163 /88 Mean: 113 10/30/19 05:58: Lactic Acid Level 1.20 Laboratory Tests 10/30/19 05:58: Creatinine 0.98, INR Comment 1.2, Platelet Count 176, Total Bilirubin 0.7 Results/Orders Lab Results Laboratory Tests Test 10/30/19 05:58 10/30/19 06:36 Range/Units White Blood Count 6.4 4.3-11.0 10^3/uL Red Blood Count 4.10 L 4.35-5.85 10^6/uL Hemoglobin 12.7 L 13.3-17.7 G/DL Hematocrit 40 40-54 % Mean Corpuscular Volume 97 80-99 FL Mean Corpuscular Hemoglobin 31 25-34 PG Mean Corpuscular Hemoglobin Concent 32 32-36 G/DL Red Cell Distribution Width 16.2 H 10.0-14.5 % Platelet Count 176 130-400 10^3/uL Mean Platelet Volume 11.5 H 7.4-10.4 FL Neutrophils (%) (Auto) 78 H 42-75 % Lymphocytes (%) (Auto) 12 12-44 % Monocytes (%) (Auto) 9 0-12 % Eosinophils (%) (Auto) 1 0-10 % Basophils (%) (Auto) 0 0-10 % Neutrophils # (Auto) 5.0 1.8-7.8 X 10^3 Lymphocytes # (Auto) 0.8 L 1.0-4.0 X 10^3 Monocytes # (Auto) 0.6 0.0-1.0 X 10^3 Eosinophils # (Auto) 0.1 0.0-0.3 10^3/uL Basophils # (Auto) 0.0 0.0-0.1 10^3/uL Prothrombin Time 15.5 H 12.2-14.7 SEC INR Comment 1.2 0.8-1.4 Activated Partial Thromboplast Time 42 H 24-35 SEC Sodium Level 144 135-145 MMOL/L Potassium Level 4.3 3.6-5.0 MMOL/L Chloride Level 110 H 98-107 MMOL/L Carbon Dioxide Level 21 21-32 MMOL/L Anion Gap 13 5-14 MMOL/L Blood Urea Nitrogen 20 H 7-18 MG/DL Creatinine 0.98 0.60-1.30 MG/DL Estimat Glomerular Filtration Rate > 60 BUN/Creatinine Ratio 20 Glucose Level 95 70-105 MG/DL Lactic Acid Level 1.20 0.50-2.00 MMOL/L Calcium Level 9.0 8.5-10.1 MG/DL Corrected Calcium 8.8 8.5-10.1 MG/DL Magnesium Level 2.4 1.6-2.4 MG/DL Total Bilirubin 0.7 0.1-1.0 MG/DL Aspartate Amino Transf (AST/SGOT) 17 5-34 U/L Alanine Aminotransferase (ALT/SGPT) 13 0-55 U/L Alkaline Phosphatase 54 40-136 U/L Total Creatine Kinase 85 30-200 U/L Creatine Kinase MB 3.1 <6.6 NG/ML Myoglobin 76.2 10.0-92.0 NG/ML Troponin I < 0.028 <0.028 NG/ML B-Type Natriuretic Peptide 408.9 H <100.0 PG/ML Total Protein 6.9 6.4-8.2 GM/DL Albumin 4.2 3.2-4.5 GM/DL TSH [place] Testing 2.80 0.35-4.94 UIU/ML Serum Alcohol < 10 <10 MG/DL Blood Gas Puncture Site NOT INDICATED Blood Gas Patient Temperature 98.7 Arterial Blood pH 7.44 H 7.37-7.43 Arterial Blood Partial Pressure CO2 33 L 35-45 MMHG Arterial Blood Partial Pressure O2 99 H 79-93 MMHG Arterial Blood HCO3 22 L 23-27 MMOL/L Arterial Blood Total CO2 22.5 21.0-31.0 MMOL/L Arterial Blood Oxygen Saturation 99 94-100 % Arterial Blood Base Excess -2.1 -2.5-2.5 MMOL/L Sanju Test NA Blood Gas Ventilator Setting NO Blood Gas Inspired Oxygen 6L Micro Results Microbiology 10/30/19 Influenza Types A,B Antigen (ANOOP) - Final, Complete My Orders Orders - HIGINIO SHIPLEY DO Ed Iv/Invasive Line Start (10/30/19 05:58) Ekg Tracing (10/30/19 05:58) O2 (10/30/19 05:58) Monitor-Rhythm Ecg Trace Only (10/30/19 05:58) Chest 1 View, Ap/Pa Only (10/30/19 05:58) Arterial Blood Gas (10/30/19 06:38) BNP (10/30/19 05:58) Cbc With Automated Diff (10/30/19 05:58) Comprehensive Metabolic Panel (10/30/19 05:58) Creatine Kinase (10/30/19 05:58) Creatine Kinase Mb (10/30/19 05:58) Lactic Acid Analyzer (10/30/19 05:58) Magnesium (10/30/19 05:58) Protime With Inr (10/30/19 05:58) Partial Thromboplastin Time (10/30/19 05:58) Thyroid Analyzer (10/30/19 05:58) Ua Culture If Indicated (10/30/19 05:58) Blood Culture (10/30/19 05:58) Influenza A And B Antigens (10/30/19 05:58) Troponin I (10/30/19 05:58) Albuterol Pre-Mix Nebs (Rt) (Proventil (10/30/19 05:58) Albuterol/Ipra Inhalation Soln (Duoneb I (10/30/19 06:00) Dexamethasone Injection (Decadron Inject (10/30/19 06:00) Rt Request For Service (10/30/19 05:58) Methylprednisolone Sod Succ (Solu-Medrol (10/30/19 05:58) Svn Small Volume Nebulizer (10/30/19 05:58) Svn Small Volume Nebulizer (10/30/19 05:58) Alcohol (10/30/19 06:04) Furosemide Injection (Lasix Injection) (10/30/19 06:30) Nitroglycerin Ointment (Nitrobid Ointme (10/30/19 06:30) Arterial Blood Gas (10/30/19 06:36) Drug Screen Stat (Urine) (10/30/19 06:51) Myoglobin Serum (10/30/19 06:51) Aspirin Chewable Tablet (Baby Aspirin Ch (10/30/19 07:15) Medications Given in ED Current Medications Medications Dose Ordered Sig/Christi Route Start Time Stop Time Status Last Admin Dose Admin Albuterol/ Ipratropium 3 ml ONCE ONCE INH 10/30/19 06:00 10/30/19 06:02 DC 10/30/19 06:43 3 ML Dexamethasone Sodium Phosphate 20 mg ONCE ONCE IH 10/30/19 06:00 10/30/19 06:02 DC 10/30/19 07:03 20 MG Furosemide 80 mg ONCE ONCE IVP 10/30/19 06:30 10/30/19 06:31 DC 10/30/19 06:48 80 MG Nitroglycerin 1 inch ONCE ONCE TOP 10/30/19 06:30 10/30/19 06:31 DC 10/30/19 06:48 1 INCH Vital Signs/I&O 10/30/19 10/30/19 10/30/19 10/30/19 05:46 05:53 06:44 07:05 Temp 36.7 Pulse 64 Resp 24 B/P (MAP) 163/88 (113) Pulse Ox 92 84 97 91 O2 Delivery Nasal Cannula Nasal Cannula Room Air O2 Flow Rate 5.00 9.00 FiO2 92 Capillary Refill : Less Than 3 Seconds Blood Pressure Mean: 113 POS Progress Note : Progress Note SYMPTOMS IMPROVED SIGNIFICANTLY AFTER HE ARRIVED IN ER, AND AT REST AND PLACED ON O2, AND HOUR LONG NEB TREATMENT GIVEN. GIVEN SOLU-MEDROL, LASIX, NITROPASTE FOR CHF AND ELEVATED BP, ASPIRIN O2 SATS IN MID 90'S ON O2 AT 4L/NC INCREASED AERATION AND DECREASED WHEEZING AT TIME OF ADMIT PT VOIDED NEARLY 1000 ML URINE IN ER. ECG Initial ECG Impression Date: Oct 30, 2019 Initial ECG Impression Time: 06:03 Initial ECG Rate: 61 Initial ECG Rhythm: Normal Sinus (WITH PAC'S , IVCD) Initial ECG Comparisson: Unchanged Diagnostic Imaging Comments CXR--CARDIAC ENLARGEMENT, MILD VASCULAR CONGESTION, MILD BIBASILAR ATELECTASIS, PLEURAL EFFUSIONS, BUT OVERALL IMPROVED FROM PREVIOUS--PER RADIOLOGIST REPORT AT 0641 Reviewed: Reviewed by Me Departure Communication (Admissions) 0712--SPOKE WITH DR. REID, HOSPITALIST, ACCEPTS PT FOR ADMIT Impression Primary Impression: Acute respiratory failure with hypoxia Additional Impressions: COPD exacerbation CHF exacerbation HX OF PAROXYSMAL ATRIAL FIBRILLATION Alcohol abuse Marijuana use, continuous Hypertension Disposition: ADMITTED INPATIENT Condition: Improved Admissions Decision to Admit Reason: Admit from ER (General) Decision to Admit/Date: Oct 30, 2019 Time/Decision to Admit Time: 07:12 Departure-Patient Inst. Referrals: ISAI AVILA MD (PCP/Family) Primary Care Physician HIGINIO SHIPLEY DO Oct 30, 2019 06:18 POS
[2019-10-30] MEDS ORDERED: NITROGLYCERIN 2% OINT 1 GM UNIT DOSE PACKET TOP ONE (06:30)
[2019-10-30] MEDS ORDERED: FUROSEMIDE 40 MG/4 ML INJ (LASIX) IVP ONE (06:30)
[2019-10-30 06:32] LABS: INR 1.2 (0.8-1.4); PROTHROMBIN TIME PATIENT 15.5 SEC (12.2-14.7)
--- NOTE | 2019-10-30 06:37 | Diagnostic Imaging Report ---
INDICATION: Shortness of air. Compared 10/04/2019 FINDINGS: The heart is enlarged. There is some mild vascular congestion but improved from prior. There is improved lung expansion. There is a tiny amount of pleural fluid or residual bilaterally likely decreased as well. Some bibasilar partial atelectasis, improved. IMPRESSION: Improvements in lung expansion with decreased congestion and pleural fluid. No adverse interval development. Dictated by: Dictated on workstation # [id number]
[2019-10-30 06:48] LABS: ALANINE AMINOTRANSFERASE 13 U/L (0-55); ALBUMIN 4.2 GM/DL (3.2-4.5); ALKALINE PHOSPHATASE 54 U/L (40-136); BILIRUBIN,TOTAL 0.7 MG/DL (0.1-1.0); BUN/CREATININE RATIO 20; CARBON DIOXIDE 21 MMOL/L (21-32); CHLORIDE 110 MMOL/L (98-107); CREATINE KINASE 85 U/L (30-200); CREATININE SERUM 0.98 MG/DL (0.60-1.30); GFR ESTIMATED > 60; GLUCOSE 95 MG/DL (70-105); MAGNESIUM 2.4 MG/DL (1.6-2.4); POTASSIUM 4.3 MMOL/L (3.6-5.0); SODIUM 144 MMOL/L (135-145); TOTAL PROTEIN 6.9 GM/DL (6.4-8.2)
[2019-10-30 06:48] LABS: ABG BASE EXCESS -2.1 MMOL/L (-2.5-2.5); ABG OXYGEN SATURATION 99 % (94-100); ABG PCO2 33 MMHG (35-45); ABG PH 7.44 (7.37-7.43); ABG PO2 99 MMHG (79-93); ABG TCO2 22.5 MMOL/L (21.0-31.0); INSPIRED O2 6L; PATIENT TEMP 98.7; VENTILATOR NO
[2019-10-30 06:56] LABS: CREATINE KINASE MB 3.1 NG/ML (<6.6)
--- NOTE | 2019-10-30 06:58 | NUR ---
report given to Sukhdev Pugh at this time to assume care of pt.
[2019-10-30] MEDS ORDERED: ASPIRIN 81 MG CHEW (CHILDREN'S ASA) PO ONE (07:15)
--- NOTE | 2019-10-30 07:15 | NUR ---
approx 500 ml urine out at this time.
--- NOTE | 2019-10-30 07:37 | NUR ---
approx 215 ml urine out at this time
[2019-10-30 07:41] LABS: BILIRUBIN,URINE NEGATIVE (NEGATIVE); CLARITY,URINE CLEAR; COLOR,URINE YELLOW; GLUCOSE, URINE (UA) NEGATIVE (NEGATIVE); KETONES,URINE NEGATIVE (NEGATIVE); LEUKOCYTE ESTERASE ,URINE NEGATIVE (NEGATIVE); NITRITE,URINE NEGATIVE (NEGATIVE); PROTEIN,URINE NEGATIVE (NEGATIVE)
[2019-10-30 07:51] LABS: BACTERIA,URINE NEGATIVE /HPF; SQUAMOUS EPITHELIAL CELL,UR RARE /HPF
[2019-10-30 07:52] LABS: AMPHETAMINE SCREEN, URINE NEGATIVE (NEGATIVE); BARBITURATE SCREEN URINE NEGATIVE (NEGATIVE); BENZODIAZEPINES SCREEN URINE NEGATIVE (NEGATIVE); CANNABINOID SCREEN, URINE POSITIVE (NEGATIVE); COCAINE SCREEN URINE NEGATIVE (NEGATIVE); METHADONE STAT NEGATIVE (NEGATIVE); METHAMPHETAMINE SCREEN URINE S NEGATIVE (NEGATIVE); OPIATE SCREEN URINE POSITIVE (NEGATIVE); OXYCODONE STAT NEGATIVE (NEGATIVE); PROPOXYPHENE STAT NEGATIVE (NEGATIVE); TRICYCLIC ANTIDEPRESSANTS SCRE NEGATIVE (NEGATIVE)
--- NOTE | 2019-10-30 07:53 | NUR ---
200 ml urine output at this time
--- NOTE | 2019-10-30 08:30 | NUR ---
RECEIVED REPORT FROM [facility]
--- NOTE | 2019-10-30 08:30 | NUR ---
225 ml urine output at this time.
--- NOTE | 2019-10-30 08:31 | NUR ---
VALDO KRUGER admitted to room 410-1, with an admitting diagnosis of ACUTE RESPIRATORY FAILURE, on 10/30/19 from ED, accompanied by SUKUMAR.VALDO KRUGER introduced to surroundings, call light, bed controls, phone, TV, temperature control, lights, meal times, smoking policy, visitor policy, side rail policy, bathrooms and showers. Patient Rights given to patient in the handbook. VALDO KRUGER verbalizes understanding that [facility] is not responsible for the loss or damage to any personal effects or valuables that are kept in the patients posession during their hospitalization. The following Patient Care Plans were discussed with the PATIENT: Discharge Planning, VITAL SIGNS,PAIN, and MEDICATIONS. VALDO KRUGER verbalizes understanding of Interdisciplinary Patient Education.
--- NOTE | 2019-10-30 09:00 | Pulmonary Consultation ---
History of Present Illness History of Present Illness Date of Admission Allergies and Home Medications Allergies Coded Allergies: Sulfa (Sulfonamide Antibiotics) (Verified Allergy, Unknown, 10/04/19) Home Medications Acetaminophen 500 Mg Tablet, 1,000 MG PO Q4H PRN for PAIN-MILD, (Reported) Albuterol Sulfate 8.5 Gm Hfa.aer.ad, 1-2 PUFF IH Q4H PRN for WHEEZING, (Reported) Albuterol Sulfate 2.5 Mg/0.5 Ml Vial.neb, 2.5 MG NEB Q4H PRN for SHORTNESS OF BREATH, (Reported) Amiodarone HCl 200 Mg Tablet, 200 MG PO BID, (Reported) Amlodipine Besylate 10 Mg Tablet, 10 MG PO DAILY, (Reported) Apixaban 5 Mg Tablet, 5 MG PO BID, (Reported) Diltiazem HCl 120 Mg Cap.er.24h, 120 MG PO DAILY, (Reported) Enalapril Maleate 20 Mg Tablet, 20 MG PO DAILY, (Reported) Fluticasone Propion/Salmeterol 1 Each Blst.w.dev, 1 PUFF INH BID, (Reported) Furosemide 80 Mg Tablet, 80 MG PO DAILY Prescribed by: PATRICIA REID on 10/06/19 0954 Hydrocodone/Acetaminophen 1 Each Tablet, 1 TAB PO Q4H PRN for PAIN-MODERATE, (Reported) Indomethacin 50 Mg Capsule, 50 MG PO DAILY PRN for GOUT PAIN, (Reported) Metoprolol Tartrate 100 Mg Tablet, 100 MG PO BID, (Reported) Potassium Chloride 10 Meq Tablet.er, 10 MEQ PO DAILY Prescribed by: PATRICIA REID on 10/06/19 0953 Prednisone 20 Mg Tab, 40 MG PO DAILY@0700 Prescribed by: PATRICIA REID on 10/06/19 0954 Past Vcfovwh-Nbrhvd-Plynbu Hx Past Med/Social Hx: Reviewed and Corrections made Patient Social History Alcohol Use: Regular Use (AT LEAST A 6 PACK/DAY) Recreational Drug Use: Yes (THC ON REGULAR BASIS SINCE S ) Drug of Choice: THC ON A REGULAR BASIS, SINCE THE Smoking Status: Former Smoker (1 PPD X 50 YEARS--STARTED AT AGE 17) Type Used: Cigarettes Former Smoker, Quit: Jun 01, 2013 Recent Foreign Travel: No Contact w/Someone Who Travel: No Recent Infectious Disease Expo: No Recent Hopitalizations: Yes (COPD exac) Physical Abuse: No Sexual Abuse: No Mistreated: No Fear: No Immunizations Up To Date Tetanus Booster (TDap): Unknown PED Vaccines UTD: Yes Date of Pneumonia Vaccine: Sep 14, 2014 Seasonal Allergies Seasonal Allergies: No Past Medical History Surgeries: Yes (RIGHT SHOULDER SURGERY X 2; LEFT KNEE SURGERY X 2; RIGHT KNEE SURGERY X 1; CARDIAC CATH 10/04/19--NO INTERVENTION) Appendectomy, Cardiac, Orthopedic Respiratory: Yes (O2 AT 2-3L/NC CONTINUOUSLYL ) Pneumonia, COPD Cardiac: Yes (INTERMITTENT ATRIAL FIBRILLATION; CARDIAC CATH 10/04/19--MODERATE DISEASE IN LAD/NO INTERVENTION, SEVERE LVEDP; ECHO 10/04/19--SEVERELY DILATED LEFT ATRIUM, WITH EF 55-65%, MILD TO MODERATE AORTIC REGURG, MODERATE TRICUSPID REGURG) Atrial Fibrillation, Chronic Edema/Swelling, Hypertension, Palpitations, Valvular Heart Disease Neurological: No Reproductive Disorders: No Genitourinary: No Gastrointestinal: No Musculoskeletal: Yes (BILATERAL KNEE SURGERIES, RIGHT SHOULDER SURGERIES) Degenerate Disk Disease, Arthritis, Chronic Back Pain Endocrine: No HEENT: No Cancer: No Psychosocial: No Integumentary: No Blood Disorders: No Family Medical History Asbestosis FH: CABG (coronary artery bypass surgery) 19 FATHER FH: breast cancer 19 MOTHER FH: uterine cancer 19 MOTHER Hypertension 19 FATHER Sepsis Event Evaluation Height, Weight, BMI Height: 5'9.00" Weight: 213lbs. 0.0oz. 96.879331zk; 32.00 BMI Method:Stated Exam Exam Vital Signs Date Time Temp Pulse Resp B/P (MAP) Pulse Ox O2 Delivery O2 Flow Rate FiO2 10/30/19 08:22 36.7 60 19 143/74 (113) 95 Nasal Cannula 4.00 10/30/19 07:05 91 Room Air 10/30/19 06:44 97 9.00 10/30/19 05:53 36.7 64 24 163/88 (113) 84 Nasal Cannula 10/30/19 05:46 92 Nasal Cannula 5.00 92 Height & Weight Height: 5'9.00" Weight: 213lbs. 0.0oz. 96.936482fx; 32.00 BMI Method:Stated Capillary Refill: Less Than 3 Seconds Gastrointestinal: non tender, soft Results Lab Laboratory Tests 10/30/19 05:58 Assessment/Plan Assessment/Plan Acute respiratory failure with hypoxia COPDAE -02 -SVNS CHF exacerbation Hx of Afib Alcohol abuse Marijuana use -Education -UDS positive for marijuana Hypertension XAVI STEVENS DO Oct 30, 2019 09:00 POS
[2019-10-30 09:01] VITALS: BP 153/77
[2019-10-30] MEDS ORDERED: RT-ALBUTEROL/IPRATROPIUM 3 ML (DUONEB) VIAL INH PRN (09:30)
[2019-10-30 12:00] VITALS: BP 145/68
[2019-10-30] MEDS ORDERED: NITROGLYCERIN 2% OINT 1 GM UNIT DOSE PACKET TOP SCH (12:00)
[2019-10-30] MEDS ORDERED: methylPREDNISolone 125 MG (Solu-MEDROL) VIAL IV SCH (12:00)
[2019-10-30] MEDS ORDERED: FUROSEMIDE 40 MG/4 ML INJ (LASIX) IV NR (12:00)
--- NOTE | 2019-10-30 13:24 | History & Physical-Hospitalist ---
History of Present Illness HPI/Chief Complaint Pt is a 74yoCM known to me from recent admission who presented to the ER due to SOB. He states that he has been fighting it for the last few days and using his inhaler more. He has been unable to lie down to sleep over the past few nights as well. He has been using his inhaler three times per day but has been needing it more frequently at night and last night used it 6 times. He ended up calling the ambulance due to his dyspnea. He was found to be hypoxic on 5lpm via NC when he arrived. He was treated with Solumedrol and lasix and has improved significantly. He states his resting dyspnea is better but he is short of breath even with standing to urinate. He denies continued marijuana use and reports he will quit when he discharges. He denies any fever or chills, sputum, or sick contacts. He does have bilateral lower extremity edema but he states this is chronic and not bad for how swollen he normally is. Source: patient Date Seen 10/30/19 Time Seen by a Provider: 13:19 Attending Physician Win Verduzco MD PCP Win Verduzco MD Referring Physician Date of Admission Oct 30, 2019 at 07:12 Home Medications & Allergies Home Medications Reviewed patient Home Medication Reconciliation performed by pharmacy medication reconciliations cctv technician and/or nursing. Patients Allergies have been reviewed. Allergies Allergies Coded Allergies Sulfa (Sulfonamide Antibiotics) (Verified Allergy, Unknown, 10/04/19) Past Ikqizbv-Llsrby-Xwxquq Hx Past Med/Social Hx: Reviewed Nursing Past Med/Soc Hx, Reviewed and Corrections made Patient Social History Marrital Status: single Alcohol Use: Regular Use Alcohol Beverage of Choice: Beer Recreational Drug Use: No Drug of Choice: THC ON A REGULAR BASIS, SINCE THE Smoking Status: Former Smoker Former Smoker, Quit: Oct 30, 2011 Type Used: Cigarettes Physical Abuse Screen: No Sexual Abuse: No Recent Foreign Travel: No Contact w/other who traveled: Yes Recent Hopitalizations: Yes (08/2019) Recent Infectious Disease Expo: No Immunizations Up To Date Tetanus Booster (TDap): Unknown Pediatric: No Date of Pneumonia Vaccine: Aug 30, 2019 Date of Influenza Vaccine: Aug 30, 2019 Seasonal Allergies Seasonal Allergies: Yes Past Medical History Surgeries: Appendectomy, Cardiac, Orthopedic Respiratory: COPD Currently Using CPAP: No Currently Using BIPAP: No Cardiac: Atrial Fibrillation, Chronic Edema/Swelling, Hypertension, Palpitations, Valvular Heart Disease Reproductive: No Musculoskeletal: Arthritis Psychosocial: Anxiety History of Blood Disorders: No Adverse Reaction to Blood Elder: No Family History Asbestosis FH: CABG (coronary artery bypass surgery) 19 FATHER FH: breast cancer 19 MOTHER FH: uterine cancer 19 MOTHER Hypertension 19 FATHER Review of Systems Constitutional: No chills, No fever, No weakness EENTM: no symptoms reported Respiratory: dyspnea on exertion; No hemoptysis; orthopnea; No phlegm; short of breath, wheezing Cardiovascular: No chest pain; edema; No palpitations Gastrointestinal: no symptoms reported Genitourinary: no symptoms reported Musculoskeletal: no symptoms reported Skin: no symptoms reported Psychiatric/Neurological: No Symptoms Reported Physical Exam Physical Exam Vital Signs Vital Signs - First Documented 10/30/19 10/30/19 05:46 05:53 Temp 36.7 Pulse 64 Resp 24 B/P (MAP) 163/88 (113) Pulse Ox 92 O2 Delivery Nasal Cannula O2 Flow Rate 5.00 FiO2 92 Capillary Refill : Less Than 3 SecondsLess Than 3 Seconds Height, Weight, BMI Height: 5'9.00" Weight: 213lbs. 0.0oz. 96.346914tt; 46.22 BMI Method:Stated General Appearance: No Apparent Distress, WD/WN HEENT: Moist Mucous Membranes; No Scleral Icterus (L), No Scleral Icterus (R) Neck: Supple; No JVD Respiratory: No Accessory Muscle Use, No Respiratory Distress, Rales; No Wheezing Cardiovascular: Regular Rate, Rhythm, No Murmur Gastrointestinal: Normal Bowel Sounds, Non Tender, Soft Extremity: Swelling (3+ pitting edema bilterally to knees) Neurologic/Psychiatric: Alert, Oriented x3, Normal Mood/Affect; No Aphasia, No Facial Droop Skin: Normal Color, Warm/Dry Results Results/Procedures Labs Laboratory Tests 10/30/19 05:58 Patient resulted labs reviewed. Imaging: Reviewed Imaging Report Imaging Date of Exam:10/30/19 CHEST 1 VIEW, AP/PA ONLY INDICATION: Shortness of air. Compared 10/04/2019 FINDINGS: The heart is enlarged. There is some mild vascular congestion but improved from prior. There is improved lung expansion. There is a tiny amount of pleural fluid or residual bilaterally likely decreased as well. Some bibasilar partial atelectasis, improved. IMPRESSION: Improvements in lung expansion with decreased congestion and pleural fluid. No adverse interval development. Assessment/Plan Admission Diagnosis CHF exacerbation Admission Status: Inpatient Order (span 2 midnights) Reason for Inpatient Admission: hypoxia, needs IV lasix, failed home management Assessment and Plan Dyspnea- multifactorial CHF Exacerbation- acutely decompensated diastolic heart failure COPD Continue lasix Continue Steroids but decrease dose Pulm and Cardiology consulted Monitor I/Os titrate oxygen as able HTN pAF Continue Nitropaste prn Was to get loop recorder by Dr Molina, will consult Continue eliquis telemetry Marijuana use recommended cessation Clinical Quality Measures DVT/VTE Risk/Contraindication: Risk Factor Score Per Nursin RFS Level Per Nursing on Admit: 4+=Very High PATRICIA REID MD Oct 30, 2019 13:24 POS
[2019-10-30] MEDS ORDERED: NITROGLYCERIN 2% OINT 1 GM UNIT DOSE PACKET TOP PRN (13:30)
[2019-10-30] MEDS ORDERED: HYDROcodone/APAP 10 MG/325 MG (LORTAB) TAB PO PRN (13:45)
[2019-10-30] MEDS: RT-ALBUTEROL/IPRATROPIUM 3 ML (DUONEB) VIAL INH SCH (15:15)
[2019-10-30 16:43] VITALS: BP 143/68
[2019-10-30] MEDS: methylPREDNISolone 40 MG/ML (Solu-MEDROL) VIAL IV SCH (17:29)
[2019-10-30 20:40] VITALS: BP 145/68
[2019-10-30] MEDS: meTOprolol TARTRATE 50 MG (LOPRESSOR) TAB PO SCH (21:19)
[2019-10-30] MEDS: APIXABAN 5 MG (ELIQUIS) TABLET PO SCH (21:19)
[2019-10-30] MEDS: AMIODARONE 200 MG (CORDARONE) TAB PO SCH (21:19)
[2019-10-31] VITALS (7 sets, daily range): BP systolic 111–146; BP diastolic 53–80
[2019-10-31] MEDS: RT-ALBUTEROL/IPRATROPIUM 3 ML (DUONEB) VIAL INH SCH ×6 (01:08→23:01)
[2019-10-31] MEDS: methylPREDNISolone 40 MG/ML (Solu-MEDROL) VIAL IV SCH ×4 (01:31→19:36)
[2019-10-31 05:25] LABS: BASOPHILS % (AUTO) 0 % (0-10); EOSINOPHILS % (AUTO) 0 % (0-10); HEMATOCRIT 35 % (40-54); HEMOGLOBIN 11.4 G/DL (13.3-17.7); LYMPHOCYTES # (AUTO) 0.2 X 10^3 (1.0-4.0); LYMPHOCYTES % (AUTO) 4 % (12-44); MEAN CORPUSCULAR HEMOGLOBIN 31 PG (25-34); MEAN CORPUSCULAR HGB CONC 33 G/DL (32-36); MEAN CORPUSCULAR VOLUME 96 FL (80-99); MEAN PLATELET VOLUME 11.9 FL (7.4-10.4); MONOCYTES # (AUTO) 0.3 X 10^3 (0.0-1.0); MONOCYTES % (AUTO) 4 % (0-12); NEUTROPHILS # (AUTO) 5.3 X 10^3 (1.8-7.8); NEUTROPHILS % (AUTO) 92 % (42-75); PLATELET COUNT 158 10^3/uL (130-400); RED CELL DISTRIBUTION WIDTH 15.8 % (10.0-14.5); WHITE BLOOD COUNT 5.8 10^3/uL (4.3-11.0)
[2019-10-31 05:52] LABS: ALANINE AMINOTRANSFERASE 10 U/L (0-55); ALBUMIN 3.5 GM/DL (3.2-4.5); ALKALINE PHOSPHATASE 44 U/L (40-136); BILIRUBIN,TOTAL 0.6 MG/DL (0.1-1.0); BUN/CREATININE RATIO 20; CALCIUM 8.1 MG/DL (8.5-10.1); CARBON DIOXIDE 22 MMOL/L (21-32); CHLORIDE 106 MMOL/L (98-107); CREATININE SERUM 0.94 MG/DL (0.60-1.30); GFR ESTIMATED > 60; GLUCOSE 126 MG/DL (70-105); POTASSIUM 3.8 MMOL/L (3.6-5.0); SODIUM 140 MMOL/L (135-145); TOTAL PROTEIN 5.8 GM/DL (6.4-8.2)
[2019-10-31 06:08] LABS: BAND NEUTROPHILS 3 %; LYMPHOCYTES % (MANUAL) 3 %; MONOCYTES % (MANUAL) 5 %; NEUTROPHILS % (MANUAL) 89 %; NUCLEATED RED BLOOD CELLS 1; RBC MORPH NORMAL
--- NOTE | 2019-10-31 07:58 | Diagnostic Imaging Report ---
INDICATION: Congestive heart failure and COPD. Upright portable AP view of the chest is obtained with comparison made to study of one day earlier. FINDINGS: There is mild cardiomegaly. Prominent interstitial markings are seen throughout the lungs. There is mild basilar atelectasis and/or pneumonitis. IMPRESSION: Mild basilar atelectasis and/or pneumonitis without other evidence of acute abnormality or significant change. Dictated by: Dictated on workstation # [id number]
[2019-10-31] MEDS: meTOprolol TARTRATE 50 MG (LOPRESSOR) TAB PO SCH ×2 (09:20→21:00)
[2019-10-31] MEDS: APIXABAN 5 MG (ELIQUIS) TABLET PO SCH ×2 (09:20→21:06)
[2019-10-31] MEDS: KCL 10 MEQ TAB (MICRO K) PO SCH (09:21)
[2019-10-31] MEDS: amLODIPine 10 MG (NORVASC) TAB PO SCH (09:21)
[2019-10-31] MEDS: DILTIAZEM 120 MG (CARDIZEM CD) CAP PO SCH (09:21)
[2019-10-31] MEDS: AMIODARONE 200 MG (CORDARONE) TAB PO SCH ×2 (09:21→21:07)
[2019-10-31] MEDS: ENALAPRIL 10 MG (VASOTEC) TAB PO SCH (09:21)
[2019-10-31] MEDS ORDERED: FUROSEMIDE 40 MG/4 ML INJ (LASIX) IVP NR (09:45)
--- NOTE | 2019-10-31 09:54 | Consultation-Cardiology ---
HPI-Cardiology Cardiology Consultation: Date of Consultation 10/31/19 Date of Admission Attending Physician Win Verduzco MD Admitting Physician Win Verduzco MD Consulting Physician Marta MOLINA MD HPI: Time Seen by a Provider: 09:53 Chief Complaint: Shortness of breath this is a 74-year-old gentleman who I've been seen in the clinic for persistent atrial fibrillation. The patient has history of hypertension, denies diabetes or hyperlipidemia. He quit smoking 5 years ago. However he uses marijuana. He has history of smoking for 40 years, one pack a day. Family history is positive for CABG in the father and atrial fibrillation in the mother. He presents with significant shortness of breath. Gradually worsening. He has history of COPD and uses 2-3 L of oxygen through nasal cannula. Worsening hypoxia. Also significant bilateral leg swelling. Denies any chest pain, cough, fever, syncope, near-syncope or palpitations. Review of Systems-Cardiology Review of Systems Constitutional: As described under HPI; No As described under HPI, No no symptoms reported, No chills, No fever, No lightheadedness Eyes: No As described under HPI, No no symptoms reported, No blindness, No blurred vision, No contact lenses, No drainage, No decreased acuity, No foreign body sensation, No pain, No vision change Ears/Nose/Throat: No As described under HPI, No no symptoms reported, No chronic hearing loss, No ear discharge, No ear pain, No nasal drainage, No ulcerations Respiratory: No no symptoms reported; As described under HPI; No As described under HPI, No cough, No orthopnea; shortness of breath; No SOB with excertion Cardiovascular: No no symptoms reported; As described under HPI; No As described under HPI, No chest pain, No edema, No irregular heart rate, No lightheadedness, No palpitations Gastrointestinal: No no symptoms reported, No As described under HPI, No abdomen distended, No abdominal pain, No blood streaked bowels, No constipation, No diarrhea, No nausea, No vomiting, No stool coloration changes Genitourinary: No As described under HPI, No burning, No dysuria, No discharge, No frequency, No flank pain, No hematuria, No urgency Skin: No rash, No skin related problems, No ulcerations Psychiatric/Neurological: No anxiety, No depression, No seizure, No focal weakness, No syncope Hematologic: No bleeding abnormalities FPM-Snwwuj-Wdlrou Hx Patient Social History Marrital Status: single Alcohol Use: Regular Use Recreational Drug Use: No Drug of Choice: THC ON A REGULAR BASIS, SINCE THE S Smoking Status: Former Smoker Type Used: Cigarettes Recent Foreign Travel: No Recent Infectious Disease Expo: No Hospitalization with Isolation: Denies Physical Abuse Screen: No Sexual Abuse: No Immunizations Up To Date Tetanus Booster (TDap): Unknown Date of Pneumonia Vaccine: Aug 30, 2019 Date of Influenza Vaccine: Aug 30, 2019 Past Medical History PMH As described under Assessment. Family Medical History Family History: Asbestosis FH: CABG (coronary artery bypass surgery) 19 FATHER FH: breast cancer 19 MOTHER FH: uterine cancer 19 MOTHER Hypertension 19 FATHER Allergies and Home Medications Allergies Coded Allergies: Sulfa (Sulfonamide Antibiotics) (Verified Allergy, Unknown, 10/04/19) Home Medications Acetaminophen 500 Mg Tablet, 1,000 MG PO Q4H PRN for PAIN-MILD, (Reported) Albuterol Sulfate 8.5 Gm Hfa.aer.ad, 1-2 PUFF IH Q4H PRN for WHEEZING, (Reported) Albuterol Sulfate 2.5 Mg/0.5 Ml Vial.neb, 2.5 MG NEB Q4H PRN for SHORTNESS OF BREATH, (Reported) Amiodarone HCl 200 Mg Tablet, 200 MG PO BID, (Reported) Amlodipine Besylate 10 Mg Tablet, 10 MG PO DAILY, (Reported) Apixaban 5 Mg Tablet, 5 MG PO BID, (Reported) Diltiazem HCl 120 Mg Cap.er.24h, 120 MG PO DAILY, (Reported) Enalapril Maleate 20 Mg Tablet, 20 MG PO DAILY, (Reported) Furosemide 80 Mg Tablet, 80 MG PO DAILY Prescribed by: PATRICIA REID on 10/06/19 0954 Hydrocodone/Acetaminophen 1 Each Tablet, 1 TAB PO Q4H PRN for PAIN-MODERATE, (Reported) Metoprolol Tartrate 100 Mg Tablet, 100 MG PO BID, (Reported) Potassium Chloride 10 Meq Tablet.er, 10 MEQ PO DAILY Prescribed by: PATRICIA REID on 10/06/19 0953 Prednisone 10 Mg Tab.ds.pk, 10 MG PO DAILY Take 6 tabs(60mg)daily,decrease by 1 tab(10MG)daily. Prescribed by: PATRICIA REID on 11/01/19 1120 Patient Home Medication List Home Medication List Reviewed: Yes Physical Exam-Cardiology Physical Exam Vital Signs/I&O 11/01/19 11/01/19 11/01/19 11/01/19 04:50 07:00 07:58 08:00 Temp 36.2 36.5 Pulse 60 57 66 Resp 20 20 B/P (MAP) 137/66 (89) 148/71 (96) Pulse Ox 95 O2 Delivery Room Air Nasal Cannula Nasal Cannula O2 Flow Rate 3.00 3.00 11/01/19 11/01/19 08:33 12:00 Temp 36.0 Pulse 51 Resp 20 B/P (MAP) 144/74 (97) Pulse Ox 95 98 O2 Delivery Nasal Cannula Nasal Cannula O2 Flow Rate 3.00 3.00 11/01/19 00:00 Intake Total 1510 ml Output Total 1425 ml Balance 85 ml Capillary Refill : Less Than 3 SecondsLess Than 3 Seconds Constitutional: appears stated age; No apparent distress; well-developed, well- nourished HEENT: PERRL; No discharge; hearing is well preserved, oral hygience is good; No ulceration, No xanthelasmas are seen Neck: No carotid bruit; carotid pulses are 2 + bilaterally Respiratory: chest is bilaterally symmetric, lungs clear to auscultation Cardiovascular: regular rate-rhythm, S1 and S2 Gastrointestinal: soft, audible bowel sounds; No spleenomegaly Rectal: heme negative stool Extremities: pedal edema; No clubbing, No cyanosis, No significant edema Neurologic/Psychiatric: no motor/sensory deficits, alert, normal mood/affect, oriented x 3, power is 5/5 both on sides Skin: normal color, warm/dry; No rash, No ulcerations Data Review Labs Microbiology 10/30/19 Blood Culture - Preliminary, Resulted Staph, Coag Neg (COVER OPERATOR) 10/30/19 Influenza Types A,B Antigen (ANOOP) - Final, Complete A/P-Cardiology Assessment/Admission Diagnosis Acute COPD exacerbation, Acute diastolic CHF, Cannabis use. Persistent atrial fibrillation, Hypertension, PVCs, Mild to moderate CAD. Plan 1. Persistent atrial fibrillation, s/p cardioversion on 08/15/2019. 30 day MCOT completed on 05/05/2019 which showed low-grade ectopy. 1 refill episode of nonsustained VT for 5 beats. PSVT for 7 beats. Brief episodes of possible atrial fibrillation. On Amiodarone and Eliquis. Cardizem. ILR is recommended. 2. Dizziness/near syncope, will recommend an echocardiogram, carotid ultrasound and outpatient telemetry. echocardiogram done on 10/04/2019 showed mild concentric LVH with an EF of 55-65 percent. Moderate to severe diastolic dysfunction. Severely dilated left atrium. Xosn-xo-leranvrg aortic regurgitation. Moderate tricuspid regurgitation. PA pressure of 53 mmHg. 3. High blood pressure. Continue outpatient medication. Keep a logbook. If b lood pressure is over 140 mmHg he will inform us. 4. Aortic plaque. Start Lipitor 20 mg daily. 5. PVCs. no beta paola for now. low burden PVC, 3 percent. Continue current medical therapy. 6. Acute on Chronic diastolic CHF-IV Lasix 80 mg daily. LVEDP during left heart catheterization done on 10/04/2019 was 21 mmHg. 7. COPD - oxygen dependent. Current shortness of breath is multifactorial with likely associated COPD exacerbation. Defer to pulmonology. 8. Mild to moderate CAD. Patient had complained of chest discomfort with a nuclear stress test which showed possible apical ischemia on 08/18/2019. Left heart catheterization was done on 10/04/2019 which showed mild to moderate proximal LAD disease. FFR was done which was 0.85. PCI was deferred. Thank you for your consultation. Please call me if you have any questions. Jaz Molina MD, FACP, FACC, FSCAI, FHRS, CCDS Interventional Cardiology Cardiac Electrophysiology Vascular Medicine and Endovascular Interventions Clinical Quality Measures DVT/VTE Risk/Contraindication: Risk Factor Score Per Nursin RFS Level Per Nursing on Admit: 4+=Very High Marta MOLINA MD Oct 31, 2019 09:54 POS
--- NOTE | 2019-10-31 10:45 | Progress Note - Hospitalist ---
Subjective HPI/CC On Admission Date Seen by Provider: Oct 31, 2019 Time Seen by Provider: 10:38 Pt is a 74yoCM known to me from recent admission who presented to the ER due to SOB. He states that he has been fighting it for the last few days and using his inhaler more. He has been unable to lie down to sleep over the past few nights as well. He has been using his inhaler three times per day but has been needing it more frequently at night and last night used it 6 times. He ended up calling the ambulance due to his dyspnea. He was found to be hypoxic on 5lpm via [place] when he arrived. He was treated with Solumedrol and lasix and has improved significantly. He states his resting dyspnea is better but he is short of breath even with standing to urinate. He denies continued marijuana use and reports he will quit when he discharges. He denies any fever or chills, sputum, or sick contacts. He does have bilateral lower extremity edema but he states this is chronic and not bad for how swollen he normally is. Subjective/Events-last exam Pt reports feeling better but still having episodes of dyspnea. Swelling improving. Focused Exam Lactate Level 10/30/19 05:58: Lactic Acid Level 1.20 Objective Exam Vital Signs Vital Signs Date Time Temp Pulse Resp B/P (MAP) Pulse Ox O2 Delivery O2 Flow Rate FiO2 10/31/19 10:02 93 Nasal Cannula 3.00 10/31/19 08:00 36.2 62 20 146/80 (102) 10/30/19 05:46 92 Capillary Refill : Less Than 3 SecondsLess Than 3 Seconds General Appearance: No Apparent Distress, WD/WN, Chronically ill Respiratory: Lungs Clear, No Accessory Muscle Use, No Respiratory Distress Cardiovascular: Regular Rate, Rhythm, No Murmur Gastrointestinal: Normal Bowel Sounds, Non Tender, Soft Extremity: Swelling (2+ to knees) Neurologic/Psychiatric: Alert, Oriented x3, Normal Mood/Affect Results/Procedures Lab Laboratory Tests 10/31/19 04:45 Patient resulted labs reviewed. Imaging: Reviewed Imaging Report Assessment/Plan Assessment and Plan Assess & Plan/Chief Complaint Dyspnea- multifactorial CHF Exacerbation- acutely decompensated diastolic heart failure COPD Continue lasix, decreased dose to 80mg today Continue Steroids Pulm and Cardiology consulted Monitor I/Os titrate oxygen as able HTN pAF Continue Nitropaste prn Was to get loop recorder by Dr Molina, will consult Eduardo leon for stroke ppx telemetry Marijuana use recommended cessation Diagnosis/Problems Diagnosis/Problems (1) Acute respiratory failure with hypoxia Status: Acute (2) CHF exacerbation Status: Acute (3) COPD exacerbation Status: Acute (4) Marijuana use, continuous Status: Acute (5) Hypertension Status: Chronic Clinical Quality Measures DVT/VTE Risk/Contraindication: Risk Factor Score Per Nursin RFS Level Per Nursing on Admit: 4+=Very High PATRICIA REID MD Oct 31, 2019 10:45 POS
--- NOTE | 2019-10-31 11:16 | NUR ---
MED REC WAS REVIEWED AND CONTINUED PRIOR TO MED REC TECH AVAILABILITY. I COMPARED WHAT WAS REVIEWED WITH THE EXT MED HX. IN ADDITION TO WHAT IS SHOWN ON THE EXT MED HX [facility] FILLED: 10-24-19 METOPROLOL TARTRATE 100MG #180 10-18-19 ENALAPRIL 20MG #90 10-18-19 AMLODIPINE 10MG #90 10-18-19 AMIODARONE 200MG #60 10-18-19 ELIQUIS 5MG BID #60 I DID NOT RE INTERVIEW THE PATIENT AT THIS TIME SINCE NO DISCREPANCIES WERE NOTED.
[2019-10-31] MEDS: ACETAMINOPHEN 500 MG TAB (TYLENOL) PO PRN ×2 (12:04→21:05)
--- NOTE | 2019-10-31 21:00 | NUR ---
BP TAKEN PRIOR TO ADMINISTERING MEDS, BP 136/61, HEART RATE 54. METOPROLOL HELD AT THIS TIME DUE TO DECREASED HEART RATE. WILL CONTINUE TO MONITOR
[2019-11-01] MEDS: methylPREDNISolone 40 MG/ML (Solu-MEDROL) VIAL IV SCH ×3 (01:34→12:36)
[2019-11-01 04:50] VITALS: BP 137/66
[2019-11-01 08:00] VITALS: BP 148/71
[2019-11-01] MEDS: RT-ALBUTEROL/IPRATROPIUM 3 ML (DUONEB) VIAL INH SCH (08:33)
[2019-11-01] MEDS: DILTIAZEM 120 MG (CARDIZEM CD) CAP PO SCH (08:49)
[2019-11-01] MEDS: APIXABAN 5 MG (ELIQUIS) TABLET PO SCH (08:49)
[2019-11-01] MEDS: ENALAPRIL 10 MG (VASOTEC) TAB PO SCH (08:49)
[2019-11-01] MEDS: meTOprolol TARTRATE 50 MG (LOPRESSOR) TAB PO SCH (08:49)
[2019-11-01] MEDS: amLODIPine 10 MG (NORVASC) TAB PO SCH (08:49)
[2019-11-01] MEDS: AMIODARONE 200 MG (CORDARONE) TAB PO SCH (08:49)
[2019-11-01] MEDS: KCL 10 MEQ TAB (MICRO K) PO SCH (08:49)
[2019-11-01] MEDS ORDERED: FUROSEMIDE 40 MG/4 ML INJ (LASIX) IVP SCH (09:00)
[2019-11-01] MEDS ORDERED: PRED10TA22 PO ×2 (11:20)
--- NOTE | 2019-11-01 11:22 | Discharge Inst-Simple/Standard ---
Discharge Inst-Standard Discharge Medications New, Converted or Re-Newed RX: Transmitted to Pharmacy Patient Instructions/Follow Up Plan of Care/Instructions/FU: Please continue to take your medications as written. Please follow up with your PCP in the next week and with Dr Molina on as schedule and with Dr Ochoa in 2 weeks. Activity as Tolerated: Yes Discharge Diet: Low Sodium Diet Return to The Hospital For: Chest pain, Shortness of breath, weight gain of more than 5lbs in 2 days, fast heart beat, if you feel you are getting worse. PATRICIA REID MD Nov 01, 2019 11:22 POS
--- NOTE | 2019-11-01 11:26 | Discharge Summary ---
Diagnosis/Chief Complaint Date of Admission Oct 30, 2019 at 07:12 Date of Discharge Discharge Date: Nov 01, 2019 Admission Diagnosis CHF exacerbation Primary Care Win Verduzco MD Discharge Diagnosis (1) Acute respiratory failure with hypoxia Status: Acute (2) CHF exacerbation Status: Acute (3) COPD exacerbation Status: Acute (4) Marijuana use, continuous Status: Acute (5) Hypertension Status: Chronic Discharge Summary Procedures/Consulations Dr Molina- Cardiology Dr Ochoa- Pulm Discharge Physical Exam Allergies: Coded Allergies: Sulfa (Sulfonamide Antibiotics) (Verified Allergy, Unknown, 10/04/19) Vitals & I&Os Vital Signs Date Time Temp Pulse Resp B/P (MAP) Pulse Ox O2 Delivery O2 Flow Rate FiO2 11/01/19 08:33 95 Nasal Cannula 3.00 11/01/19 08:00 36.5 66 20 148/71 (96) 10/30/19 05:46 92 General Appearance: No Apparent Distress, Chronically ill Respiratory: Lungs Clear, No Respiratory Distress Cardiovascular: Regular Rate, Rhythm, No Murmur Neurologic/Psychiatric: Alert, Normal Mood/Affect Hospital Course Pt was admitted for COPD exacerbation complicated by diastolic congestive heart failure. He was treated with IV steroids and DuoNebs and responded well. He also had significant lower extremity edema and was started on IV lasix. He responded well to this and was titrated back to his home oxygen setting of 3lpm via [place]. He was discharged home in stable condition to follow up with Dr Verduzco and Dr Ochoa. He is to see Dr Molina in 2 days to have a loop recorder placed. Labs (last 24 hrs) Microbiology 10/30/19 Blood Culture - Preliminary, Resulted Staph, Coag Neg (TEXTILE CONSERVATOR) 10/30/19 Influenza Types A,B Antigen (ANOOP) - Final, Complete Patient resulted labs reviewed. Discussion & Recommendations Discharge Planning: >30 minutes discharge planning Discharge Home Medications: Active Scripts Active Prednisone 10 Mg Tab.ds.pk 10 Mg PO DAILY Take 6 tabs(60mg)daily,decrease by 1 tab(10MG)daily. Potassium Chloride 10 Meq Tablet.er 10 Meq PO DAILY Furosemide 80 Mg Tablet 80 Mg PO DAILY Reported Tylenol Extra Strength (Acetaminophen) 500 Mg Tablet 1,000 Mg PO Q4H PRN Albuterol Sulfate 2.5 Mg/0.5 Ml Vial.neb 2.5 Mg NEB Q4H PRN Eliquis (Apixaban) 5 Mg Tablet 5 Mg PO BID Diltiazem 24Hr ER (Diltiazem HCl) 120 Mg Cap.er.24h 120 Mg PO DAILY Amiodarone HCl 200 Mg Tablet 200 Mg PO BID Metoprolol Tartrate 100 Mg Tablet 100 Mg PO BID Hydrocodon-Acetaminophn 10-325 (Hydrocodone/Acetaminophen) 1 Each Tablet 1 Tab PO Q4H PRN Proair Hfa (Albuterol Sulfate) 8.5 Gm Hfa.aer.ad 1-2 Puff IH Q4H PRN Enalapril Maleate 20 Mg Tablet 20 Mg PO DAILY Amlodipine Besylate 10 Mg Tablet 10 Mg PO DAILY Instructions to patient/family Please see electronic discharge instructions given to patient. Clinical Quality Measures DVT/VTE Risk/Contraindication: Risk Factor Score Per Nursin RFS Level Per Nursing on Admit: 4+=Very High PATRICIA REID MD Nov 01, 2019 11:26 POS
[2019-11-01 12:00] VITALS: BP 144/74
[2019-11-01 14:05] VITALS: BP 144/74
--- NOTE | 2019-11-01 15:02 | Cardiology Progress Note ---
Cardiology SOAP Progress Note Subjective: Significantly improved shortness of breath and lower extremities swelling. Objective: I&O/Vital Signs 11/01/19 11/01/19 11/01/19 11/01/19 04:50 07:00 07:58 08:00 Temp 36.2 36.5 Pulse 60 57 66 Resp 20 20 B/P (MAP) 137/66 (89) 148/71 (96) Pulse Ox 95 O2 Delivery Room Air Nasal Cannula Nasal Cannula O2 Flow Rate 3.00 3.00 11/01/19 11/01/19 08:33 12:00 Temp 36.0 Pulse 51 Resp 20 B/P (MAP) 144/74 (97) Pulse Ox 95 98 O2 Delivery Nasal Cannula Nasal Cannula O2 Flow Rate 3.00 3.00 11/01/19 00:00 Intake Total 1510 ml Output Total 1425 ml Balance 85 ml Weight (Pounds): 213 Weight (Ounces): 0.0 Weight (Calculated Kilograms): [id number] Constitutional: appears stated age; No apparent distress; well-developed, well- nourished Respiratory: chest is bilaterally symmetric, lungs clear to auscultation Cardiovascular: regular rate-rhythm, S1 and S2 Gastrointestional: soft, audible bowel sounds; No spleenomegaly Extremities: pedal edema; No clubbing, No cyanosis, No significant edema Neurologic/Psychiatric: no motor/sensory deficits, alert, normal mood/affect, oriented x 3, power is 5/5 both on sides Skin: normal color, warm/dry; No rash, No ulcerations Results/Procedures: Labs Microbiology 10/30/19 Blood Culture - Preliminary, Resulted Staph, Coag Neg ([employer]) 10/30/19 Influenza Types A,B Antigen (ANOOP) - Final, Complete A/P: Assessment/Dx: Acute COPD exacerbation, Acute diastolic CHF, Cannabis use. Persistent atrial fibrillation, Hypertension, PVCs, Mild to moderate CAD. Plan: 1. Persistent atrial fibrillation, s/p cardioversion on 08/15/2019. 30 day MCOT completed on 05/05/2019 which showed low-grade ectopy. 1 refill episode of nonsustained VT for 5 beats. PSVT for 7 beats. Brief episodes of possible atrial fibrillation. On Amiodarone and Eliquis. Cardizem. ILR is recommended. 2. Dizziness/near syncope, will recommend an echocardiogram, carotid ultrasound and outpatient telemetry. echocardiogram done on 10/04/2019 showed mild concentric LVH with an EF of 55-65 percent. Moderate to severe diastolic dysfunction. Severely dilated left atrium. Gyum-ey-olottwpi aortic regurgitation. Moderate tricuspid regurgitation. PA pressure of 53 mmHg. 3. High blood pressure. Continue outpatient medication. Keep a logbook. If blood pressure is over 140 mmHg he will inform us. 4. Aortic plaque. Start Lipitor 20 mg daily. 5. PVCs. no beta paola for now. low burden PVC, 3 percent. Continue current medical therapy. 6. Acute on Chronic diastolic CHF-IV Lasix 80 mg daily. LVEDP during left heart catheterization done on 10/04/2019 was 21 mmHg. significantly improved shortness of breath and lower extremity swelling. Okay to discharge with Lasix 80 mg every day and follow-up in the office in 3-4 weeks. 7. COPD - oxygen dependent. Current shortness of breath is multifactorial with likely associated COPD exacerbation. Defer to pulmonology. 8. Mild to moderate CAD. Patient had complained of chest discomfort with a nuclear stress test which showed possible apical ischemia on 08/18/2019. Left heart catheterization was done on 10/04/2019 which showed mild to moderate proximal LAD disease. FFR was done which was 0.85. PCI was deferred. Thank you for your consultation. Please call me if you have any questions. Jaz Molina MD, FACP, FACC, FSCAI, FHRS, CCDS Interventional Cardiology Cardiac Electrophysiology Vascular Medicine and Endovascular Interventions Focused Exam Lactate Level 10/30/19 05:58: Lactic Acid Level 1.20 Marta MOLINA MD Nov 01, 2019 15:02 POS
== END 2019-11-01 14:10 | disposition home or self-care (01) | DRG 291 ==
LOC: EDUNIT# 05:44 → ER 05:45 → 4TH 07:12
PROVIDERS: ADMIT Family Medicine; ATTEND Family Medicine
DX: I11.0 Hypertensive heart disease with heart failure (principal); I50.33 Acute on chronic diastolic (congestive) heart failure; J44.1 Chronic obstructive pulmonary disease with (acute) exacerbation; J96.01 Acute respiratory failure with hypoxia; I48.19 Other persistent atrial fibrillation; F12.90 Cannabis use, unspecified, uncomplicated; I08.2 Rheumatic disorders of both aortic and tricuspid valves; M19.91 Primary osteoarthritis, unspecified site; F10.10 Alcohol abuse, uncomplicated; I49.3 Ventricular premature depolarization; I25.10 Atherosclerotic heart disease of native coronary artery without angina pectoris; Z99.81 Dependence on supplemental oxygen; Z87.891 Personal history of nicotine dependence; Z91.19 Patient's noncompliance with other medical treatment and regimen; Z82.49 Family history of ischemic heart disease and other diseases of the circulatory system; Z88.2 Allergy status to sulfonamides
CPT/HCPCS: 36415; 71045; 80053; 80306; 80320; 81000; 82550; 82553; 82805; 83605; 83735; 83874; 83880; 84443; 84484; 85007; 85025; 85027; 85610; 85730; 87040; 87804; 93005; 93041; 93306; 94640; 94760; 96374; 96375

== ENCOUNTER 2019-11-03 07:55 | Day surgery (SDC) | payer MEDICARE ==
[~2019-11-03] VITALS: Ht 175 cm; Wt 122.0 kg
[~2019-11-03 07:55] MED LIST changes: +DILT120C88 PO; -DILT120C94 PO; -INDO50CA11 PO; +INDO50CA82 PO
[2019-11-03] MEDS ORDERED: LIDOCAINE 1% INJ 20 ML 20 ML VIAL INJ ONE (08:00)
[2019-11-03 08:08] VITALS: BP 123/77
--- NOTE | 2019-11-03 09:54 | Implantation of Loop Monitor ---
Implant of Loop Monitior PROCEDURE PHYSICIAN: Jaz Molina MD IMPLANTATION OF LOOP MONITOR REPORT DATE OF PROCEDURE: 11/03/19 PERFORMING PHYSICIAN: Dr. Lopez Molina. INDICATION: Long-term surveillance of atrial fibrillation PREOP DIAGNOSIS: Long-term surveillance of atrial fibrillation POSTOP DIAGNOSIS: Paroxysmal Atrial fibrillation, s/p implantation of loop recorder. PROCEDURE DETAILS: The patient is a 74 male with history of paroxysmal atrial fibrillation requiring long-term surveillance. Therefore implantable loop recorder was discussed and agreed with the patient. Informed consent was taken. All risks and complications were discussed at length. The patient was draped and prepped in the usual sterile fashion. Local anesthesia was lidocaine, which was given in the substernal area close to the 4th intercostal space. Loop monitor was implanted according to the protocol. Steri-Strips were placed at the end of the procedure. There were no complications and the patient tolerated the procedure well. ANESTHESIA: Local anesthesia with lidocaine. COMPLICATIONS: None CONTRAST/FLUOROSCOPY: None CONCLUSION: 1. Successful implantation of loop monitor for long-term surveillance of paroxysmal atrial fibrillation. 2. No complication and the patient tolerated the procedure well. Jaz Molina MD, [facility] Cardiac Electrophysiology Marta MOLINA MD Nov 03, 2019 09:54 POS
--- OUTSIDE RECORDS SUMMARY | 2019-11-29 05:51 | XMS REPORT | Continuity of Care Document ---
Author Organization Unknown Address Unknown Phone Unavailable Allergies Active Description Code Type Severity Reaction Onset Reported/Identified Relationship to Patient Clinical Status Yes Sulfa (Sulfonamide Antibiotics) [id number] 0491 Drug Allergy Unknown N/A 019 Medications There is no data. Problems Date [...] V58.61 08/24/2015 Ot V58.83 09/17/2015 OSCAR KELLER [facility] Ot 278.00 09/17/2015 OSCAR KELLER [facility] Ot 401.9 09/17/2015 OSCAR KELLER [facility] Ot 496 09/17/2015 OSCAR KELLER [facility] Ot 780.54 09/17/2015 OSCAR KELLER [facility] Ot 786.09 09/24/2015 OSCAR KELLER [facility] Ot 278.00 09/24/2015 OSCAR KELLER [facility] Ot 401.9 09/24/2015 OSCAR KELLER [facility] Ot 496 09/24/2015 OSCAR KELLER [facility] Ot 780.54 09/24/2015 OSCAR KELLER [facility] Ot 786.09 10/31/2015 [facility]SCAR KE[facility]ER [facility] Ot G47.10 HYPERSOMNIA, UNSPECIFIED 10/31/2015 OSCAR KELLER [facility] Ot I10 ESSENTIAL (PRIMARY) HYPERTENSION 10/31/2015 OSC[facility] KELLER [facility] Ot J44.9 CHRONIC OBSTRUCTIVE PULMONARY DISEASE, U 10/31/2015 [facility]SC[facility] Ot R06.83 SNORING 07/09/2016 RUSTAM COSME DO Ot Z01.818 ENCOUNTER FOR OTHER PREPROCEDURAL EXAMIN 07/09/2016 RUSTAM COSME DO Ot Z12. 11 ENCOUNTER FOR SCREENING FOR MALIGNANT NE 07/10/2016 COSME DO RUSTAM D Ot Z01.818 ENCOUNTER FOR OTHER PREPROCEDURAL EXAMIN 07/10/2016 COSME VAL SHINETT D Ot Z12. 11 ENCOUNTER FOR SCREENING FOR MALIGNANT NE 07/11/2016 RUSTAM COSME DO Ot K63. 5 POLYP OF COLON 07/11/2016 COSME VAL SHINETT Ruth Ot Z12. 11 ENCOUNTER FOR SCREENING FOR MALIGNANT NE 07/15/2016 COSME RUSTAM SHINE Ot Z01.818 ENCOUNTER FOR OTHER PREPROCEDURAL EXAMIN 07/15/2016 COSME VAL SHINETT Ruth Ot Z12. 11 ENCOUNTER FOR SCREENING FOR MALIGNANT NE 07/16/2016 COSME VAL SHINETT Ruth Ot K63. 5 POLYP OF COLON 07/16/2016 COSME VAL SHINETT Ruth Ot Z12. 11 ENCOUNTER FOR SCREENING FOR MALIGNANT NE 07/19/2016 COSME VAL SHINETT Ruth Ot K63. 5 POLYP OF COLON 07/19/2016 SHELDON VAL SHINETT Ruth Ot Z12. 11 ENCOUNTER FOR SCREENING FOR MALIGNANT NE 05/14/2018 [facility] Ot 278.00 OBESITY, NOS 05/14/2018 OSCAR KELLER [facility] Ot 401.9 HYPERTENSION NOS 05/14/2018 OSCAR KELLER [facility] Ot 496 CHR AIRWAY OBSTRUCT NEC 05/14/2018 OSCAR KELLER [facility] Ot 780.54 HYPERSOMNIA, UNSPECIFIED 05/14/2018 OSCAR KELLER [facility] Ot 786.09 RESPIRATORY ABNORM NEC 05/17/2018 JORI, BOBBY L PHYSIC[facility] Ot M79.89 OTHER SPECIFIED SOFT TISSUE DISORDERS 05/17/2018 JORI, BOBBY L [facility] Ot R06.00 DYSPNEA, UNSPECIFIED 05/17/2018 JORI, BOBBY L [facility] Ot S22.42XA MULTIPLE FRACTURES OF RIBS, LEFT SIDE, I 05/17/2018 JORI, BOBBY L [facility] Ot W19.XXXA UNSPECIFIED FALL, INITIAL ENCOUNTER 05/17/2018 JORI, BOBBY L [facility] Ot Z87.09 PERSONAL HISTORY OF OTHER DISEASES OF TH 05/17/2018 JORI, BOBBY L [facility] Ot 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 LEFT ARTIFICIAL KNEE JOINT 05/17/2018 JORI, BOBBY L [facility] Ot M79.89 OTHER SPECIFIED SOFT TISSUE DISORDERS 05/17/2018 JORI, BOBBY L [facility] Ot R06.00 DYSPNEA, UNSPECIFIED 05/17/2018 JORI, BOBBY L [facility] Ot R10 .9 UNSPECIFIED ABDOMINAL PAIN 05/17/2018 JORI, BOBBY L [facility]YSIC[facility] Ot S22.42XA MULTIPLE FRACTURES OF RIBS, LEFT SIDE, I 05/17/2018 JORI, BOBBY L PHYSIC[facility] Ot W19.XXXA UNSPECIFIED FALL, INITIAL ENCOUNTER 05/17/2018 JORI, BOBBY L PHYSIC[facility] Ot Z87.09 PERSONAL HISTORY OF OTHER DISEASES OF TH 05/17/2018 JORI, BOBBY L PHYSIC[facility] Ot 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 LEFT ARTIFICIAL KNEE JOINT 06/07/2018 JORI, BOBBY L PHYSIC[facility] Ot M79.89 OTHER SPECIFIED SOFT TISSUE DISORDERS 06/07/2018 JORI, BOBBY L [facility]YSIC[facility] Ot R06.00 DYSPNEA, UNSPECIFIED 06/07/2018 JORI, BOBBY L [facility]YSIC[facility] Ot R10 .9 UNSPECIFIED ABDOMINAL PAIN 06/07/2018 JORI, BOBBY L [facility]YSIC[facility] Ot S22.42XA MULTIPLE FRACTURES OF RIBS, LEFT SIDE, I 06/07/2018 JORI, BOBBY L PHYSIC[facility] Ot W19.XXXA UNSPECIFIED FALL, INITIAL ENCOUNTER 06/07/2018 JORI, BOBBY L PHYSIC[facility] Ot Z87.09 PERSONAL HISTORY OF OTHER DISEASES OF TH 06/07/2018 JORI, BOBBY L PHYSIC[facility] Ot 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 LEFT ARTIFICIAL KNEE JOINT 03/30/2019 OSCAR KELLER [facility] Ot 278.00 OBESITY, NOS 03/30/2019 OSCAR KELLER [facility] Ot 401.9 HYPERTENSION NOS 03/30/2019 OSCAR KELLER [facility] Ot 496 CHR AIRWAY OBSTRUCT NEC 03/30/2019 OSCAR KE[facility]ER [facility] Ot 780.54 HYPERSOMNIA, UNSPECIFIED 03/30/2019 TRACY KELELRINE E PHYSIC[facility] Ot 786.09 RESPIRATORY ABNORM NEC 03/30/2019 JORI, BOBBY L [facility] Ot M79.89 OTHER SPECIFIED SOFT TISSUE DISORDERS 03/30/2019 JORI, BOBBY L [facility] Ot R06.00 DYSPNEA, UNSPECIFIED 03/30/2019 JORI, BOBBY L [facility] Ot R10 .9 UNSPECIFIED ABDOMINAL PAIN 03/30/2019 JORI, BOBBY L [facility] Ot S22.42XA MULTIPLE FRACTURES OF RIBS, LEFT SIDE, I 03/30/2019 JORI, BOBBY L [facility] Ot W19.XXXA UNSPECIFIED FALL, INITIAL ENCOUNTER 03/30/2019 JORI, BOBBY L [facility] Ot Z87.09 PERSONAL HISTORY OF OTHER DISEASES OF TH 03/30/2019 JROI, BOBBY L [facility]YSIC[facility] Ot 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 LEFT ARTIFICIAL KNEE JOINT 03/30/2019 OSCAR KELLER [facility] Ot 278.00 OBESITY, NOS 03/30/2019 OSCAR KELLER [facility] Ot 401.9 HYPERTENSION NOS 03/30/2019 OSCAR KELLER [facility] Ot 496 CHR AIRWAY OBSTRUCT NEC 03/30/2019 OSCAR KELLER [facility] Ot 780.54 HYPERSOMNIA, UNSPECIFIED 03/30/2019 OSCAR KELLER [facility] Ot 786.09 RESPIRATORY ABNORM NEC 03/30/2019 JORI, BOBBY L [facility]YSIC[facility] Ot M79.89 OTHER SPECIFIED SOFT TISSUE DISORDERS 03/30/2019 JORI, BOBBY L [facility] Ot R06.00 DYSPNEA, UNSPECIFIED 03/30/2019 JORI, BOBBY L [facility] Ot R10 .9 UNSPECIFIED ABDOMINAL PAIN 03/30/2019 JORI, BOBBY L [facility] Ot S22.42XA MULTIPLE FRACTURES OF RIBS, LEFT SIDE, I 03/30/2019 JORI, BOBBY L [facility] Ot W19.XXXA UNSPECIFIED FALL, INITIAL ENCOUNTER 03/30/2019 JORI, BOBBY L [facility] Ot Z87.09 PERSONAL HISTORY OF OTHER DISEASES OF TH 03/30/2019 JORI, BOBBY L [facility] Ot 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 LEFT ARTIFICIAL KNEE JOINT 03/30/2019 TRACY KELLERINE E PHYSIC[facility] Ot 278.00 OBESITY, NOS 03/30/2019 OSCAR KELLER [facility] Ot 401.9 HYPERTENSION NOS 03/30/2019 TRACY KELLERINE E PHYSIC[facility] Ot 496 CHR AIRWAY OBSTRUCT NEC 03/30/2019 TRACY KELLERINE E PHYSIC[facility] Ot 780.54 HYPERSOMNIA, UNSPECIFIED 03/30/2019 TRACY KELLERINE E [facility]YSIC[facility] Ot 786.09 RESPIRATORY ABNORM NEC 03/30/2019 JORI, BOBBY L [facility]YSIC[facility] Ot M79.89 OTHER SPECIFIED SOFT TISSUE DISORDERS 03/30/2019 JORI, BOBBY L [facility]YSIC[facility] Ot R06.00 DYSPNEA, UNSPECIFIED 03/30/2019 JORI, BOBBY L [facility]YS[facility] Ot R10 .9 UNSPECIFIED ABDOMINAL PAIN 03/30/2019 JORI, BOBBY L [facility]YSIC[facility] Ot S22.42XA MULTIPLE FRACTURES OF RIBS, LEFT SIDE, I 03/30/2019 JORI, BOBBY L [facility]YSIC[facility] Ot W19.XXXA UNSPECIFIED FALL, INITIAL ENCOUNTER 03/30/2019 JORI, BOBBY L [facility]YSIC[facility] Ot Z87.09 PERSONAL HISTORY OF OTHER DISEASES OF 03/30/2019 JORI, BOBBY L PHYSIC[facility] Ot 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 LEFT ARTIFICIAL KNEE JOINT 03/30/2019 OSCAR KELLER [facility] Ot 278.00 OBESITY, NOS 03/30/2019 OSCAR KELLER [facility] Ot 401.9 HYPERTENSION NOS 03/30/2019 OSCAR KELLER [facility] Ot 496 CHR AIRWAY OBSTRUCT NEC 03/30/2019 OSCAR KELLER [facility] Ot 780.54 HYPERSOMNIA, UNSPECIFIED 03/30/2019 OSCAR KELLER [facility] Ot 786.09 RESPIRATORY ABNORM NEC 03/30/2019 JORI, BOBBY L [facility] Ot M79.89 OTHER SPECIFIED SOFT TISSUE DISORDERS 03/30/2019 JORI, BOBBY L [facility] Ot R06.00 DYSPNEA, UNSPECIFIED 03/30/2019 JORI, BOBBY L [facility] Ot R10 .9 UNSPECIFIED ABDOMINAL PAIN 03/30/2019 JORI, BOBBY L [facility] Ot S22.42XA MULTIPLE FRACTURES OF RIBS, LEFT SIDE, I 03/30/2019 JORI, BOBBY L [facility] Ot W19.XXXA UNSPECIFIED FALL, INITIAL ENCOUNTER 03/30/2019 JORI, BOBBY L [facility] Ot Z87.09 PERSONAL HISTORY OF OTHER DISEASES OF TH 03/30/2019 JORI, BOBBY L [facility] Ot 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 LEFT ARTIFICIAL KNEE JOINT 04/06/2019 OSCAR KELLER [facility] Ot 278.00 OBESITY, NOS 04/06/2019 TRACY KELLERINE E [facility]YSIC[facility] Ot 401.9 HYPERTENSION NOS 04/06/2019 TRACY KELLERINE E [facility]YSIC[facility] Ot 496 CHR AIRWAY OBSTRUCT NEC 04/06/2019 TRACY KELLERINE E [facility]YSIC[facility] Ot 780.54 HYPERSOMNIA, UNSPECIFIED 04/06/2019 TRACY KELLERINE E [facility]YSIC[facility] Ot 786.09 RESPIRATORY ABNORM NEC 04/06/2019 JORI, BOBBY L [facility]YS[facility] Ot M79.89 OTHER SPECIFIED SOFT TISSUE DISORDERS 04/06/2019 JORI, BOBBY L [facility] Ot R06.00 DYSPNEA, UNSPECIFIED 04/06/2019 JORI, BOBBY L [facility] Ot R10 .9 UNSPECIFIED ABDOMINAL PAIN 04/06/2019 JORI, BOBBY L [facility] Ot S22.42XA MULTIPLE FRACTURES OF RIBS, LEFT SIDE, I 04/06/2019 JORI, BOBBY L [facility] Ot W19.XXXA UNSPECIFIED FALL, INITIAL ENCOUNTER 04/06/2019 JORI, BOBBY L [facility] Ot Z87.09 PERSONAL HISTORY OF OTHER DISEASES OF 04/06/2019 JORI, BOBBY L [facility] Ot 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 LEFT ARTIFICIAL KNEE JOINT 04/06/2019 OSCAR KELLER E [facility] Ot 278.00 OBESITY, NOS 04/06/2019 TRACY KELLERINE E PHYSIC[facility] Ot 401.9 HYPERTENSION NOS 04/06/2019 OSCAR KELLER [facility] Ot 496 CHR AIRWAY OBSTRUCT NEC 04/06/2019 TRACY KELLERINE E [facility]YSIC[facility] Ot 780.54 HYPERSOMNIA, UNSPECIFIED 04/06/2019 TRACY KELLERINE E [facility]YSIC[facility] Ot 786.09 RESPIRATORY ABNORM NEC 04/06/2019 JORI, BOBBY L [facility]YSIC[facility] Ot M79.89 OTHER SPECIFIED SOFT TISSUE DISORDERS 04/06/2019 JORI, BOBBY L [facility] Ot R06.00 DYSPNEA, UNSPECIFIED 04/06/2019 JORI, BOBBY L [facility] Ot R10 .9 UNSPECIFIED ABDOMINAL PAIN 04/06/2019 JORI, BOBBY L [facility] Ot S22.42XA MULTIPLE FRACTURES OF RIBS, LEFT SIDE, I 04/06/2019 JORI, BOBBY L VERONIKA Ot W19.XXXA UNSPECIFIED FALL, INITIAL ENCOUNTER 04/06/2019 BOBBY HSIEH VERONIKA Ot Z87.09 PERSONAL HISTORY OF OTHER DISEASES OF TH 04/06/2019 BOBBY HSIEH VERONIKA Ot 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 LEFT ARTIFICIAL KNEE JOINT 04/08/2019 DAVID EDGAR, Marta CHAIDEZ Ot I49 .3 VENTRICULAR PREMATURE DEPOLARIZATION 04/08/2019 DAVID EDGAR, Marta CHAIDEZ Ot R42 DIZZINESS AND GIDDINESS 04/08/2019 Marta HERNANDEZ MD, Ot R55 SYNCOPE AND COLLAPSE 04/28/2019 Marta HERNANDEZ MD, Ot I49 .3 VENTRICULAR PREMATURE DEPOLARIZATION 04/28/2019 Marta HERNANDEZ MD, Ot R42 DIZZINESS AND GIDDINESS 04/28/2019 Marta HERNANDEZ MD, Ot R55 SYNCOPE AND COLLAPSE 06/13/2019 SHANTI EDGAR, BENJAMIN Lozano Ot G47.33 OBSTRUCTIVE SLEEP APNEA (ADULT) (PEDIATR [...] HISTORY OF NICOTINE DEPENDENCE 06/14/2019 OSCAR KELLER [facility] Ot 278.00 OBESITY, NOS 06/14/2019 OSCAR KELLER [facility] Ot 401.9 HYPERTENSION NOS 06/14/2019 OSCAR KELLER [facility] Ot 496 CHR AIRWAY OBSTRUCT NEC 06/14/2019 OSCAR KELLER [facility]IC[facility] Ot 780.54 HYPERSOMNIA, UNSPECIFIED 06/14/2019 OSCAR KELLER [facility] Ot 786.09 RESPIRATORY ABNORM NEC 06/14/2019 BOBBY HSIEH [facility]YSIC[facility] Ot M79.89 OTHER SPECIFIED SOFT TISSUE DISORDERS 06/14/2019 JORI, BOBBY L [facility]YSIC[facility] Ot R06.00 DYSPNEA, UNSPECIFIED 06/14/2019 JORI, BOBBY Serrano PHYSIC[facility] Ot R10 .9 UNSPECIFIED ABDOMINAL PAIN 06/14/2019 JORI, BOBBY Serrano [facility]YSIC[facility] Ot S22.42XA MULTIPLE FRACTURES OF RIBS, LEFT SIDE, I 06/14/2019 BOBBY HSIEH PHYSIC[facility] Ot W19.XXXA UNSPECIFIED FALL, INITIAL ENCOUNTER 06/14/2019 BOBBY HSIEH [facility]YS[facility] Ot Z87.09 PERSONAL HISTORY OF OTHER DISEASES OF TH 06/14/2019 JORIBOBBY CABELLO PHYSIC[facility] Ot 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 LEFT ARTIFICIAL KNEE JOINT 06/14/2019 DAVID EDGAR, Marta CHAIDEZ Ot I49 .3 VENTRICULAR PREMATURE DEPOLARIZATION 06/14/2019 DAVID EDGAR, Marta CHAIDEZ Ot R42 DIZZINESS AND GIDDINESS 06/14/2019 DAVID EDGAR, Marta HCAIDEZ Ot R55 SYNCOPE AND COLLAPSE 06/14/2019 DAVID EDGAR, Marta CHAIDEZ Ot I49 .3 VENTRICULAR PREMATURE DEPOLARIZATION 06/14/2019 DAVID EDGAR, Marta CHAIDEZ Ot R42 DIZZINESS AND GIDDINESS 06/14/2019 DAVID EDGAR, Marta CHAIDEZ Ot R55 SYNCOPE AND COLLAPSE 07/05/2019 DAVID EDGAR, Marta CHAIDEZ Ot I49 .3 VENTRICULAR PREMATURE DEPOLARIZATION 07/05/2019 DAVID EDGAR, Marta CHAIDEZ Ot R42 DIZZINESS AND GIDDINESS 07/05/2019 DAVID EDGAR, Marta CHAIDEZ Ot R55 SYNCOPE AND COLLAPSE 08/16/2019 MARGARITA EDGAR, ISAI R Ot E87. 2 ACIDOSIS 08/16/2019 ISAI AVILA MD Ot E87. 6 HYPOKALEMIA 08/16/2019 ISAI AVILA MD Ot I10 ESSENTIAL (PRIMARY) HYPERTENSION 08/16/2019 ISAI AVILA MD Ot I11. 0 HYPERTENSIVE HEART DISEASE WITH HEART FA 08/16/2019 ISAI AVILA MD Ot I48. 0 PAROXYSMAL ATRIAL FIBRILLATION 08/16/2019 ISAI AVILA MD Ot I50. 31 ACUTE DIASTOLIC (CONGESTIVE) HEART FAILU 08/16/2019 ISAI AVILA MD Ot J44. 1 CHRONIC OBSTRUCTIVE PULMONARY DISEASE W 08/16/2019 ISAI AVILA MD Ot M19. 91 PRIMARY OSTEOARTHRITIS, UNSPECIFIED SITE 08/16/2019 ISAI AVILA MD, Ot M54. 9 DORSALGIA, UNSPECIFIED 08/16/2019 ISAI AVILA MD, Ot Z87.891 PERSONAL HISTORY OF NICOTINE DEPENDENCE 08/16/2019 ISAI AVILA MD, Ot Z88. 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 08/22/2019 DAVID EDGAR, Marta CHAIDEZ Ot R07 .9 CHEST PAIN, UNSPECIFIED 08/23/2019 OSCAR KELLER [facility] Ot 278.00 OBESITY, NOS 08/23/2019 OSCAR KELLER [facility] Ot 401.9 HYPERTENSION NOS 08/23/2019 OSCAR KELLER [facility]YSIC[facility] Ot 496 CHR AIRWAY OBSTRUCT NEC 08/23/2019 OSCAR KELLER [facility]IC[facility] Ot 780.54 HYPERSOMNIA, UNSPECIFIED 08/23/2019 OSCAR KELLER [facility]IC[facility] Ot 786.09 RESPIRATORY ABNORM NEC 08/23/2019 JORI, BOBBY L PHYSIC[facility] Ot M79.89 OTHER SPECIFIED SOFT TISSUE DISORDERS 08/23/2019 JORI, BOBBY L [facility]YSIC[facility] Ot R06.00 DYSPNEA, UNSPECIFIED 08/23/2019 JORI, BOBBY L [facility]YSIC[facility] Ot R10 .9 UNSPECIFIED ABDOMINAL PAIN 08/23/2019 JORI, BOBBY L PHYSICIAN [facility] Ot S22.42XA MULTIPLE FRACTURES OF RIBS, LEFT SIDE, I 08/23/2019 JORI, BOBBY L [facility]YSIC[facility] Ot W19.XXXA UNSPECIFIED FALL, INITIAL ENCOUNTER 08/23/2019 JORI, BOBBY L PHYSICIAN [facility] Ot Z87.09 PERSONAL HISTORY OF OTHER DISEASES OF TH 08/23/2019 JORI, BOBBY L PHYSIC[facility] Ot 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 LEFT ARTIFICIAL KNEE JOINT 08/23/2019 DAVID EDGAR, Marta CHAIDEZ Ot I49 .3 VENTRICULAR PREMATURE DEPOLARIZATION 08/23/2019 DAVID EDGAR, Marta CHAIDEZ Ot R42 DIZZINESS AND GIDDINESS 08/23/2019 DAVID EDGAR, Marta CHAIDEZ Ot R55 SYNCOPE AND COLLAPSE 08/23/2019 DAVID EDGAR, Marta CHAIDEZ Ot R07 .9 CHEST PAIN, UNSPECIFIED 08/23/2019 Marta HERNANDEZ MD Ot I49 .3 VENTRICULAR PREMATURE DEPOLARIZATION 08/23/2019 Marta HERNANDEZ MD Ot R42 DIZZINESS AND GIDDINESS 08/23/2019 Marta HERNANDEZ MD Ot R55 SYNCOPE AND COLLAPSE 08/23/2019 OSCAR KELLER APRN Ot G47.10 HYPERSOMNIA, UNSPECIFIED 08/23/2019 OSCAR KELLER [facility] Ot J43.9 EMPHYSEMA, UNSPECIFIED 08/23/2019 ARIANNAOSCAR WALKER PHYSICIAN [facility] Ot G47.10 HYPERSOMNIA, UNSPECIFIED 08/24/2019 OSCAR KELLER PHYSICIAN [facility] Ot G47.10 HYPERSOMNIA, UNSPECIFIED 08/24/2019 OSCAR KELLER [facility]YSICIAN [facility] Ot G47.36 SLEEP RELATED HYPOVENTILATION IN CONDITI 08/24/2019 OSCAR KELLER [facility]YSIC[facility] Ot G47.50 PARASOMNIA, UNSPECIFIED 09/07/2019 Marta HERNANDEZ MD Ot R07 .9 CHEST PAIN, UNSPECIFIED 09/26/2019 OSCAR KELLER APRN Ot J43.9 EMPHYSEMA, UNSPECIFIED 10/04/2019 Marta HERNANDEZ MD Ot I49 .3 VENTRICULAR PREMATURE DEPOLARIZATION 10/04/2019 Marta HERNANDEZ MD Ot R42 DIZZINESS AND GIDDINESS 10/04/2019 Marta HERNANDEZ MD Ot R55 SYNCOPE AND COLLAPSE 10/06/2019 PATRICIA REID MD Ot F12. 90 CANNABIS USE, UNSPECIFIED, UNCOMPLICATED 10/06/2019 PATRICIA REID MD Ot I11. 0 HYPERTENSIVE HEART DISEASE WITH HEART FA 10/06/2019 PATRICIA REID MD, Ot I25. 10 ATHSCL HEART DISEASE OF [place] CORONARY 10/06/2019 PATRICIA REID MD Ot I48. 0 PAROXYSMAL ATRIAL FIBRILLATION 10/06/2019 PATRICIA REID MD, Ot I50. 31 ACUTE DIASTOLIC (CONGESTIVE) HEART FAILU 10/06/2019 PATRICIA REID MD, Ot J44. 1 CHRONIC OBSTRUCTIVE PULMONARY DISEASE W 10/06/2019 PATRICIA REID MD Ot J96. 00 ACUTE RESPIRATORY FAILURE, UNSP W HYPOXI 10/06/2019 FRANKLIN MD, PATRICIA M Ot Z23 ENCOUNTER FOR IMMUNIZATION 10/06/2019 PATRICIA REID MD Ot Z87.891 PERSONAL HISTORY OF NICOTINE DEPENDENCE 11/01/2019 OSCAR KELLER APRN Ot J43.9 EMPHYSEMA, UNSPECIFIED 11/01/2019 ISAI AVILA MD Ot F10. 10 ALCOHOL ABUSE, UNCOMPLICATED 11/01/2019 ISAI AVILA MD Ot F12. 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 0 HYPERTENSIVE HEART DISEASE WITH HEART FA 11/01/2019 ISAI AVILA MD, Ot I25. 10 ATHSCL HEART DISEASE OF [place] CORONARY 11/01/2019 ISAI AVILA MD Ot I48. 19 OTHER PERSISTENT ATRIAL FIBRILLATION 11/01/2019 ISAI AVILA MD Ot I49. 3 VENTRICULAR PREMATURE DEPOLARIZATION 11/01/2019 ISAI AVILA MD Ot I50. 33 ACUTE ON CHRONIC DIASTOLIC (CONGESTIVE) 11/01/2019 ISAI AVILA MD, Ot J44. 1 CHRONIC OBSTRUCTIVE PULMONARY DISEASE W 11/01/2019 ISAI AVILA MD, Ot J96. 01 ACUTE RESPIRATORY FAILURE WITH HYPOXIA 11/01/2019 ISAI AVILA MD Ot M19. 91 PRIMARY OSTEOARTHRITIS, UNSPECIFIED SITE 11/01/2019 ISAI AVILA MD Ot Z82. 49 FAMILY HX OF I[place] HEART DIS AND OTH DI 11/01/2019 ISAI AVILA MD Ot Z87.891 PERSONAL HISTORY OF NICOTINE DEPENDENCE 11/01/2019 ISAI AVILA MD Ot Z88. 2 ALLERGY STATUS TO SULFONAMIDES STATUS 11/01/2019 ISAI AVILA MD Ot Z91. 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 11/03/2019 Marta HERNANDEZ MD Ot I70 .0 ATHEROSCLEROSIS OF [place] 11/03/2019 Marta HERNANDEZ MD Ot J44 .9 CHRONIC OBSTRUCTIVE PULMONARY DISEASE, U 11/03/2019 Marta HERNANDEZ MD, Ot Z68.39 BODY MASS INDEX (BMI) 39.0-39.9, ADULT 11/03/2019 Marta HERNANDEZ MD Ot Z79.01 PRE WAVE ASSEMBLER (CURRENT) USE OF ANTICOAGULANT 11/03/2019 Marta HERNANDEZ MD Ot Z79.899 OTHER CUSTODIAL (CURRENT) DRUG THERAPY 11/03/2019 Marta HERNANDEZ MD Ot Z80 .9 FAMILY HISTORY OF MALIGNANT NEOPLASM, UN 11/03/2019 Marta HERNANDEZ MD Ot Z82.49 FAMILY HX OF ISCHEM HEART DIS AND OTH DI 11/03/2019 Marta HERNANDEZ MD Ot Z88 .2 ALLERGY STATUS TO SULFONAMIDES STATUS 11/07/2019 Marta HERNANDEZ MD Ot E66 .9 OBESITY, UNSPECIFIED 11/07/2019 Marta HERNANDEZ MD Ot F51 .8 OTH SLEEP DISORD NOT DUE TO A SUB OR KNO 11/07/2019 Marta HERNANDEZ MD Ot I11 .0 HYPERTENSIVE HEART DISEASE WITH HEART FA 11/07/2019 Marta HERNANDEZ MD Ot I25.10 ATHSCL HEART DISEASE OF [place] CORONARY 11/07/2019 Marta HERNANDEZ MD Ot I48.19 OTHER PERSISTENT ATRIAL FIBRILLATION 11/07/2019 Marta HERNANDEZ MD Ot I49 .3 VENTRICULAR PREMATURE DEPOLARIZATION 11/07/2019 Marta HERNANDEZ MD, Ot 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 11/07/2019 Marta HERNANDEZ MD, Ot I70 .0 ATHEROSCLEROSIS OF [place] 11/07/2019 Marta HERNANDEZ MD, Ot J44 .9 CHRONIC OBSTRUCTIVE PULMONARY DISEASE, U 11/07/2019 Marta HERNANDEZ MD, Ot Z68.39 BODY MASS INDEX (BMI) 39.0-39.9, ADULT 11/07/2019 Marta HERNANDEZ MD, Ot Z79.01 CUSTODIAL (CURRENT) USE OF ANTICOAGULANT 11/07/2019 Marta HERNANDEZ MD, Ot Z79.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 1 CHRONIC OBSTRUCTIVE PULMONARY DISEASE W Procedures Code Description Performed By Per formed On [id number] RE STORATION OF CARDIAC RHYTHM, SINGLE 08/15/2019 [id number] ME ASURE OF CARDIAC SAMPL PRESSURE, L H 10/04/2019 [id number] ME ASUREMENT OF ARTERIAL PRESSURE, MCGRATH 10/04/2019 [id number] FL UOROSCOPY OF MULT COR ART USING L OSM 10/04/2019 Results Test Result Range Complete urinalysis with reflex to cultu re - 06/12/19 06:00 Urine color determination YELLOW NRG Urine clarity determination CLEAR NR G Urine pH measurement by test strip 6.5 5-9 Specific gravity of urine by test strip 1.015 1.016-1.022 Urine protein assay by test strip, semi-quantitative 3+ NEGATIVE Urine glucose detection by automated test strip NE GATIVE NEGATIVE Erythrocytes detection in urine sediment by light micr oscopy 1+ NEGATIVE Urine ketones detection by automated test strip 1+ NEGATIVE Urine nitrite detection by test strip NEGATIVE NEGATIVE Urine total bilirubin detection by test strip NEGA TIVE NEGATIVE Urine urobilinogen measurement by automated test strip (mass/volume) NORMAL NORMAL Urine leukocyte esterase detection by dipstick NEG ATIVE NEGATIVE Automated urine sediment erythrocyte cou nt by microscopy (number/high power field) NONE NRG Automated urine sediment leukocyte count by microscopy (number/high power field) NONE NRG Bacteria detection in urine sediment by light microsco py TRACE NRG Squamous epithelial cells detection in u rine sediment by light microscopy 0-2 NRG Crystals detection in urine sediment by light microsco py NONE NRG Casts detection in urine sediment by light microscopy NONE NRG Mucus detection in urine sediment by light microscopy SMALL NRG Complete urinalysis with reflex to culture CULTURE PENDING NRG Bacterial urine culture - 06/12/19 06:00 Bacterial urine culture 3 OR MORE NRG COLONY COUNT 20,000 CFU/ML NRG FTX;REPORTABLE GRAM POSITIVES, SUGGESTING PROBABLE NRG FREE TEXT ENTRY 2 COLLECTION CONTAMINATION WITH SK IN [place] NRG FREE TEXT ENTRY 3 NO SUSCEPTIBILITY PERFORMED NRG Complete blood count (CBC) with automate d white blood cell (WBC) differential - 06/12/19 06:04 Blood leukocytes automated count (number/volume) 12.4 10*3/uL 4.3-11.0 Blood erythrocytes automated count (number/volume) 4.62 10*6/uL 4.35-5.85 Venous blood hemoglobin measurement (mass/volume) 15.1 g/dL 13.3-17.7 Blood hematocrit (volume fraction) 46 % 40-54 Automated erythrocyte mean corpuscular volume 99 [ foz_us] 80-99 Automated erythrocyte mean corpuscular h emoglobin (mass per erythrocyte) 33 pg 25-34 Automated erythrocyte mean corpuscular h emoglobin concentration measurement (mass/volume) 33 g/dL 32-36 Automated erythrocyte distribution width ratio 13. 4 % 10.0- 14.5 Automated blood platelet count [...] 10*3 1.0-4.0 Blood monocytes automated count (number/volume) 0. 8 10*3 0.0-1.0 Automated eosinophil count 0.2 10*3/uL 0 .0-0.3 Automated blood basophil count (count/volume) 0.1 10*3/uL 0.0-0.1 Blood lactic acid measurement (moles/vol ume) - 06/12/19 06:04 Blood lactic acid measurement (moles/volume) 1.88 mmol/L 0.50-2.00 PT panel in platelet poor plasma by coag ulation assay - 06/12/19 06:04 Prothrombin time (PT) in platelet poor plasma by coagu lation assay 13.6 s 12.2-14.7 INR in platelet poor plasma or blood by coagulation as say 1.0 0.8-1.4 Activated partial thromboplastin time (a PTT) in platelet poor plasma bycoagulation assay - 06/12/19 06:04 Activated partial thromboplastin time (a PTT) in platelet poor plasma bycoagulation assay 29 s 24-35 Comprehensive metabolic panel - 06/12/19 06:04 Serum or plasma sodium measurement (moles/volume) 140 mmol/L 135-145 Serum or plasma potassium measurement (moles/volume) 3.8 mmol/L 3.6-5.0 Serum or plasma chloride measurement (moles/volume) 105 mmol/L 98-107 Carbon dioxide 20 mmol/L 21-32 Serum or plasma anion gap determination (moles/volume) 15 mmol/L 5-14 Serum or plasma urea nitrogen measurement (mass/volume ) 12 mg/dL 7-18 Serum or plasma creatinine measurement (mass/volume) 0.86 mg/dL 0.60-1.30 Serum or plasma urea nitrogen/creatinine mass ratio 14 NRG Serum or plasma creatinine measurement w ith calculation of estimated glomerular filtration rate > NRG Serum or plasma glucose measurement (mass/volume) 105 mg/dL 70-105 Serum or plasma calcium measurement (mass/volume) 9.3 mg/dL 8.5-10.1 Serum or plasma total bilirubin measurement (mass/volu me) 0.6 mg/dL 0.1-1.0 Serum or plasma alkaline phosphatase deana surement (enzymatic activity/volume) 71 U/L 40-136 Serum or plasma aspartate aminotransfera se measurement (enzymatic activity/volume) 19 U/L 5-34 Serum or plasma alanine aminotransferase measurement (enzymatic activity/volume) 19 U/L 0-55 Serum or plasma protein measurement (mass/volume) 7.2 g/dL 6.4-8.2 Serum or plasma albumin measurement (mass/volume) 4.4 g/dL 3.2-4.5 CALCIUM CORRECTED 9.0 mg/dL 8.5-10.1 Serum or plasma troponin i.cardiac measu rement (mass/volume) - 06/12/19 06:04 Serum or plasma troponin i.cardiac measurement (mass/v olume) < ng/mL <0.028 Serum or plasma lithium measurement (mol es/volume) - 06/12/19 06:04 BNP PT 864.0 pg/mL <100.0 Bacterial blood culture - 06/12/19 06:04 Bacterial blood culture NG NRG Arterial blood gas measurement - 9 06:08 Blood pCO2 36 mm[Hg] 35-45 Blood pO2 87 mm[Hg] 79-93 Arterial blood bicarbonate measurement (moles/volume) 22 mmol/L 23-27 Arterial blood base excess by calculation -1.5 mmo l/L -2.5-2.5 Arterial blood oxygen saturation measurement 97 % 94-100 * Inhaled oxygen flow rate 40% NRG Arterial blood pH measurement with patient temperature correction 7.41 7.37-7.43 Arterial blood carbon dioxide, total measurement (mole s/volume) 23.4 mmol/L 21.0-31.0 Body site LEFT RADIAL NRG Assessment of wrist artery patency prior to arterial p uncture YES-POS NRG Setting of ventilation mode NO NR G Measurement of body temperature 99.3 NRG Bacterial blood culture - 06/12/19 06:33 Bacterial blood culture NG NRG Complete blood count (CBC) with automate d white blood cell (WBC) differential - 06/13/19 05:00 Blood leukocytes automated count (number/volume) 10.7 10*3/uL 4.3-11.0 Blood erythrocytes automated count (number/volume) 4.37 10*6/uL 4.35-5.85 Venous blood hemoglobin measurement (mass/volume) 14.2 g/dL 13.3-17.7 Blood hematocrit (volume fraction) 43 % 40-54 Automated erythrocyte mean corpuscular volume 98 [ foz_us] 80-99 Automated erythrocyte mean corpuscular h emoglobin (mass per erythrocyte) 33 pg 25-34 Automated erythrocyte mean corpuscular h emoglobin concentration measurement (mass/volume) 33 g/dL 32-36 Automated erythrocyte distribution width ratio 13. 3 % 10.0- 14.5 Automated blood platelet count [...] 10*3 1.0-4.0 Blood monocytes automated count (number/volume) 0. 3 10*3 0.0-1.0 Automated eosinophil count 0.0 10*3/uL 0 .0-0.3 Automated blood basophil count (count/volume) 0.0 10*3/uL 0.0-0.1 Comprehensive metabolic panel - 06/13/19 05:00 Serum or plasma sodium measurement (moles/volume) 141 mmol/L 135-145 Serum or plasma potassium measurement (moles/volume) 3.7 mmol/L 3.6-5.0 Serum or plasma chloride measurement (moles/volume) 106 mmol/L 98-107 Carbon dioxide 21 mmol/L 21-32 Serum or plasma anion gap determination (moles/volume) 14 mmol/L 5-14 Serum or plasma urea nitrogen measurement (mass/volume ) 14 mg/dL 7-18 Serum or plasma creatinine measurement (mass/volume) 0.83 mg/dL 0.60-1.30 Serum or plasma urea nitrogen/creatinine mass ratio 17 NRG Serum or plasma creatinine measurement w ith calculation of estimated glomerular filtration rate > NRG Serum or plasma glucose measurement (mass/volume) 121 mg/dL 70-105 Serum or plasma calcium measurement (mass/volume) 9.7 mg/dL 8.5-10.1 Serum or plasma total bilirubin measurement (mass/volu me) 0.6 mg/dL 0.1-1.0 Serum or plasma alkaline phosphatase deana surement (enzymatic activity/volume) 68 U/L 40-136 Serum or plasma aspartate aminotransfera se measurement (enzymatic activity/volume) 18 U/L 5-34 Serum or plasma alanine aminotransferase measurement (enzymatic activity/volume) 15 U/L 0-55 Serum or plasma protein measurement (mass/volume) 6.8 g/dL 6.4-8.2 Serum or plasma albumin measurement (mass/volume) 4.1 g/dL 3.2-4.5 CALCIUM CORRECTED 9.6 mg/dL 8.5-10.1 Manual absolute plasma cell count - 05/30 04/17 05:00 Blood monocytes/100 leukocytes 3 % NRG Manual blood segmented neutrophils/100 leukocytes 90 % NRG Blood band neutrophils/100 leukocytes 4 % NRG Manual blood lymphocytes/100 leukocytes 3 % NRG Blood erythrocyte morphology finding identification NORMAL NRG PT panel in platelet poor plasma by coag ulation assay - 08/14/19 12:49 Prothrombin time (PT) in platelet poor plasma by coagu lation assay 14.7 s 12.2-14.7 INR in platelet poor plasma or blood by coagulation as say 1.1 0.8-1.4 Activated partial thromboplastin time (a PTT) in platelet poor plasma bycoagulation assay - 08/14/19 12:49 Activated partial thromboplastin time (a PTT) in platelet poor plasma bycoagulation assay 30 s 24-35 Complete blood count (CBC) with automate d white blood cell (WBC) differential - 08/14/19 12:49 Blood leukocytes automated count (number/volume) 10.3 10*3/uL 4.3-11.0 Blood erythrocytes automated count (number/volume) 4.29 10*6/uL 4.35-5.85 Venous blood hemoglobin measurement (mass/volume) 13.8 g/dL 13.3-17.7 Blood hematocrit (volume fraction) 41 % 40-54 Automated erythrocyte mean corpuscular volume 96 [ foz_us] 80-99 Automated erythrocyte mean corpuscular h emoglobin (mass per erythrocyte) 32 pg 25-34 Automated erythrocyte mean corpuscular h emoglobin concentration measurement (mass/volume) 33 g/dL 32-36 Automated erythrocyte distribution width ratio 14. 8 % 10.0- 14.5 Automated blood platelet count [...] 10*3 1.0-4.0 Blood monocytes automated count (number/volume) 1. 1 10*3 0.0-1.0 Automated eosinophil count 0.1 10*3/uL 0 .0-0.3 Automated blood basophil count (count/volume) 0.0 10*3/uL 0.0-0.1 Comprehensive metabolic panel - 08/14/19 12:49 Serum or plasma sodium measurement (moles/volume) 141 mmol/L 135-145 Serum or plasma potassium measurement (moles/volume) 3.7 mmol/L 3.6-5.0 Serum or plasma chloride measurement (moles/volume) 107 mmol/L 98-107 Carbon dioxide 23 mmol/L 21-32 Serum or plasma anion gap determination (moles/volume) 11 mmol/L 5-14 Serum or plasma urea nitrogen measurement (mass/volume ) 11 mg/dL 7-18 Serum or plasma creatinine measurement (mass/volume) 0.87 mg/dL 0.60-1.30 Serum or plasma urea nitrogen/creatinine mass ratio 13 NRG Serum or plasma creatinine measurement w ith calculation of estimated glomerular filtration rate > NRG Serum or plasma glucose measurement (mass/volume) 91 mg/dL 70-105 Serum or plasma calcium measurement (mass/volume) 9.5 mg/dL 8.5-10.1 Serum or plasma total bilirubin measurement (mass/volu me) 1.0 mg/dL 0.1-1.0 Serum or plasma alkaline phosphatase deana surement (enzymatic activity/volume) 74 U/L 40-136 Serum or plasma aspartate aminotransfera se measurement (enzymatic activity/volume) 17 U/L 5-34 Serum or plasma alanine aminotransferase measurement (enzymatic activity/volume) 15 U/L 0-55 Serum or plasma protein measurement (mass/volume) 6.5 g/dL 6.4-8.2 Serum or plasma albumin measurement (mass/volume) 4.0 g/dL 3.2-4.5 CALCIUM CORRECTED 9.5 mg/dL 8.5-10.1 Magnesium - 08/14/19 12:49 Magnesium 2.1 mg/dL 1.6-2.4 Serum or plasma creatine kinase measurem ent (enzymatic activity/volume) - 08/14/19 12:49 Serum or plasma creatine kinase measurem ent (enzymatic activity/volume) 105 U/L 30-200 Serum or plasma creatine kinase MB measu rement (enzymatic activity/volume) - 08/14/19 12:49 Serum or plasma creatine kinase MB measu rement (enzymatic activity/volume) 3.9 ng/mL <6.6 Serum or plasma lithium measurement (mol es/volume) - 08/14/19 12:49 BNP PT 635.5 pg/mL <100.0 Serum or plasma troponin i.cardiac measu rement (mass/volume) - 08/14/19 12:49 Serum or plasma troponin i.cardiac measurement (mass/v olume) < ng/mL <0.028 Myoglobin, serum - 08/14/19 12:49 Myoglobin, serum 91.8 ng/mL 10.0-92.0 Serum or plasma thyrotropin measurement by detection limit <=0.05 miu/l (units/volume) - 08/14/19 12:49 Serum or plasma thyrotropin measurement by detection limit <=0.05 miu/l (units/volume) 0.85 u[iU]/mL 0.35-4.94 Serum or plasma ethanol measurement (mas s/volume) - 08/14/19 12:49 Serum or plasma ethanol measurement (mass/volume) < mg/dL <10 Complete urinalysis with reflex to cultu re - 08/14/19 14:42 Urine color determination YELLOW NRG Urine clarity determination CLEAR NR G Urine pH measurement by test strip 7 5-9 Specific gravity of urine by test strip 1.005 1.016-1.022 Urine protein assay by test strip, semi-quantitative NEGATIVE NEGATIVE Urine glucose detection by automated test strip NE GATIVE NEGATIVE Erythrocytes detection in urine sediment by light micr oscopy NEGATIVE NEGATIVE Urine ketones detection by automated test strip 1+ NEGATIVE Urine nitrite detection by test strip NEGATIVE NEGATIVE Urine total bilirubin detection by test strip NEGA TIVE NEGATIVE Urine urobilinogen measurement by automated test strip (mass/volume) NORMAL NORMAL Urine leukocyte esterase detection by dipstick NEG ATIVE NEGATIVE Automated urine sediment erythrocyte cou nt by microscopy (number/high power field) NONE NRG Automated urine sediment leukocyte count by microscopy (number/high power field) NONE NRG Bacteria detection in urine sediment by light microsco py NEGATIVE NRG Crystals detection in urine sediment by light microsco py NONE NRG Casts detection in urine sediment by light microscopy NONE NRG Mucus detection in urine sediment by light microscopy NEGATIVE NRG Complete urinalysis with reflex to culture NO NRG Urine drug screening test - 08/14/19 14: 42 Urine phencyclidine detection by screening method NEGATIVE NEGATIVE Urine benzodiazepines detection by screening method NEGATIVE NEGATIVE Urine cocaine detection NEGATIVE NEGATI VE Urine amphetamines detection by screening method N EGATIVE NEGATIVE Urine methamphetamine detection by screening method NEGATIVE NEGATIVE Urine cannabinoids detection by screening method P OSITIVE NEGATIVE Urine opiates detection by screening method NEGATI VE NEGATIVE Urine barbiturates detection NEGATIVE N EGATIVE Screening urine tricyclic antidepressants detection NEGATIVE NEGATIVE Urine methadone detection by screening method NEGA TIVE NEGATIVE Urine oxycodone detection NEGATIVE NEGA TIVE Urine propoxyphene detection NEGATIVE N EGATIVE Serum or plasma troponin i.cardiac measu rement (mass/volume) - 08/14/19 15:55 Serum or plasma troponin i.cardiac measurement (mass/v olume) < ng/mL <0.028 Serum or plasma troponin i.cardiac measu rement (mass/volume) - 08/14/19 22:01 Serum or plasma troponin i.cardiac measurement (mass/v olume) < ng/mL <0.028 Complete blood count (CBC) with automate d white blood cell (WBC) differential - 08/15/19 03:11 Blood leukocytes automated count (number/volume) 6.3 10*3/uL 4.3-11.0 Blood erythrocytes automated count (number/volume) 4.63 10*6/uL 4.35-5.85 Venous blood hemoglobin measurement (mass/volume) 14.5 g/dL 13.3-17.7 Blood hematocrit (volume fraction) 44 % 40-54 Automated erythrocyte mean corpuscular volume 96 [ foz_us] 80-99 Automated erythrocyte mean corpuscular h emoglobin (mass per erythrocyte) 31 pg 25-34 Automated erythrocyte mean corpuscular h emoglobin concentration measurement (mass/volume) 33 g/dL 32-36 Automated erythrocyte distribution width ratio 14. 7 % 10.0- 14.5 Automated blood platelet count [...] 10*3 1.0-4.0 Blood monocytes automated count (number/volume) 0. 3 10*3 0.0-1.0 Automated eosinophil count 0.0 10*3/uL 0 .0-0.3 Automated blood basophil count (count/volume) 0.0 10*3/uL 0.0-0.1 Comprehensive metabolic panel - 08/15/19 03:11 Serum or plasma sodium measurement (moles/volume) 141 mmol/L 135-145 Serum or plasma potassium measurement (moles/volume) 3.2 mmol/L 3.6-5.0 Serum or plasma chloride measurement (moles/volume) 102 mmol/L 98-107 Carbon dioxide 21 mmol/L 21-32 Serum or plasma anion gap determination (moles/volume) 18 mmol/L 5-14 Serum or plasma urea nitrogen measurement (mass/volume ) 18 mg/dL 7-18 Serum or plasma creatinine measurement (mass/volume) 1.19 mg/dL 0.60-1.30 Serum or plasma urea nitrogen/creatinine mass ratio 15 NRG Serum or plasma creatinine measurement w ith calculation of estimated glomerular filtration rate 60 NRG Serum or plasma glucose measurement (mass/volume) 141 mg/dL 70-105 Serum or plasma calcium measurement (mass/volume) 9.6 mg/dL 8.5-10.1 Serum or plasma total bilirubin measurement (mass/volu me) 0.8 mg/dL 0.1-1.0 Serum or plasma alkaline phosphatase deana surement (enzymatic activity/volume) 69 U/L 40-136 Serum or plasma aspartate aminotransfera se measurement (enzymatic activity/volume) 16 U/L 5-34 Serum or plasma alanine aminotransferase measurement (enzymatic activity/volume) 16 U/L 0-55 Serum or plasma protein measurement (mass/volume) 6.9 g/dL 6.4-8.2 Serum or plasma albumin measurement (mass/volume) 4.3 g/dL 3.2-4.5 CALCIUM CORRECTED 9.4 mg/dL 8.5-10.1 Manual absolute plasma cell count - 07/31 05/18 03:11 Blood monocytes/100 leukocytes 1 % NRG Manual blood segmented neutrophils/100 leukocytes 93 % NRG Manual blood lymphocytes/100 leukocytes 6 % NRG Magnesium - 08/15/19 03:11 Magnesium 2.1 mg/dL 1.6-2.4 Whole blood basic metabolic panel - 07/31 06/17 03:11 Serum or plasma sodium measurement (moles/volume) 143 mmol/L 135-145 Serum or plasma potassium measurement (moles/volume) 3.3 mmol/L 3.6-5.0 Serum or plasma chloride measurement (moles/volume) 107 mmol/L 98-107 Carbon dioxide 24 mmol/L 21-32 Serum or plasma anion gap determination (moles/volume) 12 mmol/L 5-14 Serum or plasma urea nitrogen measurement (mass/volume ) 19 mg/dL 7-18 Serum or plasma creatinine measurement (mass/volume) 1.14 mg/dL 0.60-1.30 Serum or plasma urea nitrogen/creatinine mass ratio 17 NRG Serum or plasma creatinine measurement w ith calculation of estimated glomerular filtration rate > NRG Serum or plasma glucose measurement (mass/volume) 107 mg/dL 70-105 Serum or plasma calcium measurement (mass/volume) 8.9 mg/dL 8.5-10.1 Complete blood count (CBC) with automate d white blood cell (WBC) differential - 10/04/19 06:46 Blood leukocytes automated count (number/volume) 9.7 10*3/uL 4.3-11.0 Blood erythrocytes automated count (number/volume) 4.18 10*6/uL 4.35-5.85 Venous blood hemoglobin measurement (mass/volume) 13.1 g/dL 13.3-17.7 Blood hematocrit (volume fraction) 40 % 40-54 Automated erythrocyte mean corpuscular volume 96 [ foz_us] 80-99 Automated erythrocyte mean corpuscular h emoglobin (mass per erythrocyte) 31 pg 25-34 Automated erythrocyte mean corpuscular h emoglobin concentration measurement (mass/volume) 33 g/dL 32-36 Automated erythrocyte distribution width ratio 15. 4 % 10.0- 14.5 Automated blood platelet count (count/volume) 199 10*3/uL 130-400 Automated blood platelet mean volume measurement 11.3 [foz_us] 7.4-10.4 Automated blood neutrophils/100 leukocytes 81 % 42-75 Automated blood lymphocytes/100 leukocytes 10 % 12-44 Blood monocytes/100 leukocytes 9 % 0-12 Automated blood eosinophils/100 leukocytes 0 % 0-10 Automated blood basophils/100 leukocytes 0 % 0-10 Blood neutrophils automated count (number/volume) 7.8 10*3 1.8-7.8 Blood lymphocytes automated count (number/volume) 1.0 10*3 1.0-4.0 Blood monocytes automated count (number/volume) 0. 8 10*3 0.0-1.0 Automated eosinophil count 0.0 10*3/uL 0 .0-0.3 Automated blood basophil count (count/volume) 0.0 10*3/uL 0.0-0.1 PT panel in platelet poor plasma by coag ulation assay - 10/04/19 06:46 Prothrombin time (PT) in platelet poor plasma by coagu lation assay 14.7 s 12.2-14.7 INR in platelet poor plasma or blood by coagulation as say 1.1 0.8-1.4 Activated partial thromboplastin time (a PTT) in platelet poor plasma bycoagulation assay - 10/04/19 06:46 Activated partial thromboplastin time (a PTT) in platelet poor plasma bycoagulation assay 36 s 24-35 Comprehensive metabolic panel - 10/04/19 06:46 Serum or plasma sodium measurement (moles/volume) 142 mmol/L 135-145 Serum or plasma potassium measurement (moles/volume) 4.4 mmol/L 3.6-5.0 Serum or plasma chloride measurement (moles/volume) 104 mmol/L 98-107 Carbon dioxide 22 mmol/L 21-32 Serum or plasma anion gap determination (moles/volume) 16 mmol/L 5-14 Serum or plasma urea nitrogen measurement (mass/volume ) 15 mg/dL 7-18 Serum or plasma creatinine measurement (mass/volume) 0.95 mg/dL 0.60-1.30 Serum or plasma urea nitrogen/creatinine mass ratio 16 NRG Serum or plasma creatinine measurement w ith calculation of estimated glomerular filtration rate > NRG Serum or plasma glucose measurement (mass/volume) 85 mg/dL 70-105 Serum or plasma calcium measurement (mass/volume) 9.3 mg/dL 8.5-10.1 Serum or plasma total bilirubin measurement (mass/volu me) 1.1 mg/dL 0.1-1.0 Serum or plasma alkaline phosphatase deana surement (enzymatic activity/volume) 69 U/L 40-136 Serum or plasma aspartate aminotransfera se measurement (enzymatic activity/volume) 21 U/L 5-34 Serum or plasma alanine aminotransferase measurement (enzymatic activity/volume) 14 U/L 0-55 Serum or plasma protein measurement (mass/volume) 7.3 g/dL 6.4-8.2 Serum or plasma albumin measurement (mass/volume) 4.3 g/dL 3.2-4.5 CALCIUM CORRECTED 9.1 mg/dL 8.5-10.1 Magnesium - 10/04/19 06:46 Magnesium 2.5 mg/dL 1.6-2.4 Serum or plasma troponin i.cardiac measu rement (mass/volume) - 10/04/19 06:46 Serum or plasma troponin i.cardiac measurement (mass/v olume) < ng/mL <0.028 Myoglobin, serum - 10/04/19 06:46 Myoglobin, serum 69.3 ng/mL 10.0-92.0 Serum or plasma lithium measurement (mol es/volume) - 10/04/19 06:46 BNP PT 579.7 pg/mL <100.0 Complete blood count (CBC) with automate d white blood cell (WBC) differential - 10/05/19 05:00 Blood leukocytes automated count (number/volume) 5.3 10*3/uL 4.3-11.0 Blood erythrocytes automated count (number/volume) 3.79 10*6/uL 4.35-5.85 Venous blood hemoglobin measurement (mass/volume) 11.7 g/dL 13.3-17.7 Blood hematocrit (volume fraction) 36 % 40-54 Automated erythrocyte mean corpuscular volume 96 [ foz_us] 80-99 Automated erythrocyte mean corpuscular h emoglobin (mass per erythrocyte) 31 pg 25-34 Automated erythrocyte mean corpuscular h emoglobin concentration measurement (mass/volume) 32 g/dL 32-36 Automated erythrocyte distribution width ratio 14. 8 % 10.0- 14.5 Automated blood platelet count (count/volume) 163 10*3/uL 130-400 Automated blood platelet mean volume measurement 11.5 [foz_us] 7.4-10.4 Automated blood neutrophils/100 leukocytes 85 % 42-75 Automated blood lymphocytes/100 leukocytes 8 % 12-44 Blood monocytes/100 leukocytes 7 % 0-12 Automated blood eosinophils/100 leukocytes 0 % 0-10 Automated blood basophils/100 leukocytes 0 % 0-10 Blood neutrophils automated count (number/volume) 4.5 10*3 1.8-7.8 Blood lymphocytes automated count (number/volume) 0.4 10*3 1.0-4.0 Blood monocytes automated count (number/volume) 0. 4 10*3 0.0-1.0 Automated eosinophil count 0.0 10*3/uL 0 .0-0.3 Automated blood basophil count (count/volume) 0.0 10*3/uL 0.0-0.1 Comprehensive metabolic panel - 10/05/19 05:00 Serum or plasma sodium measurement (moles/volume) 139 mmol/L 135-145 Serum or plasma potassium measurement (moles/volume) 4.1 mmol/L 3.6-5.0 Serum or plasma chloride measurement (moles/volume) 102 mmol/L 98-107 Carbon dioxide 24 mmol/L 21-32 Serum or plasma anion gap determination (moles/volume) 13 mmol/L 5-14 Serum or plasma urea nitrogen measurement (mass/volume ) 17 mg/dL 7-18 Serum or plasma creatinine measurement (mass/volume) 0.90 mg/dL 0.60-1.30 Serum or plasma urea nitrogen/creatinine mass ratio 19 NRG Serum or plasma creatinine measurement w ith calculation of estimated glomerular filtration rate > NRG Serum or plasma glucose measurement (mass/volume) 112 mg/dL 70-105 Serum or plasma calcium measurement (mass/volume) 8.7 mg/dL 8.5-10.1 Serum or plasma total bilirubin measurement (mass/volu me) 0.9 mg/dL 0.1-1.0 Serum or plasma alkaline phosphatase deana surement (enzymatic activity/volume) 51 U/L 40-136 Serum or plasma aspartate aminotransfera se measurement (enzymatic activity/volume) 13 U/L 5-34 Serum or plasma alanine aminotransferase measurement (enzymatic activity/volume) 8 U/L 0-55 Serum or plasma protein measurement (mass/volume) 5.9 g/dL 6.4-8.2 Serum or plasma albumin measurement (mass/volume) 3.5 g/dL 3.2-4.5 CALCIUM CORRECTED 9.1 mg/dL 8.5-10.1 Lipid 1996 panel - 10/05/19 05:00 Serum or plasma triglyceride measurement (mass/volume) 44 mg/dL <150 Serum or plasma cholesterol measurement (mass/volume) 154 mg/dL < 200 Serum or plasma cholesterol in HDL measurement (mass/v olume) 86 mg/dL 40-60 Cholesterol in LDL [mass/volume] in serum or plasma by direct assay 47 mg/dL 1-129 Serum or plasma cholesterol in VLDL measurement (mass/ volume) 9 mg/dL 5-40 Automated blood complete blood count ( mogram) panel - 10/06/19 05:52 Blood leukocytes automated count (number/volume) 8.4 10*3/uL 4.3-11.0 Blood erythrocytes automated count (number/volume) 3.99 10*6/uL 4.35-5.85 Venous blood hemoglobin measurement (mass/volume) 12.5 g/dL 13.3-17.7 Blood hematocrit (volume fraction) 38 % 40-54 Automated erythrocyte mean corpuscular volume 95 [ foz_us] 80-99 Automated erythrocyte mean corpuscular h emoglobin (mass per erythrocyte) 31 pg 25-34 Automated erythrocyte mean corpuscular h emoglobin concentration measurement (mass/volume) 33 g/dL 32-36 Automated erythrocyte distribution width ratio 14. 9 % 10.0- 14.5 Automated blood platelet count (count/volume) 197 10*3/uL 130-400 Automated blood platelet mean volume measurement 12.0 [foz_us] 7.4-10.4 Whole blood basic metabolic panel - 06/17 05:52 Serum or plasma sodium measurement (moles/volume) 140 mmol/L 135-145 Serum or plasma potassium measurement (moles/volume) 3.8 mmol/L 3.6-5.0 Serum or plasma chloride measurement (moles/volume) 104 mmol/L 98-107 Carbon dioxide 24 mmol/L 21-32 Serum or plasma anion gap determination (moles/volume) 12 mmol/L 5-14 Serum or plasma urea nitrogen measurement (mass/volume ) 20 mg/dL 7-18 Serum or plasma creatinine measurement (mass/volume) 1.05 mg/dL 0.60-1.30 Serum or plasma urea nitrogen/creatinine mass ratio 19 NRG Serum or plasma creatinine measurement w ith calculation of estimated glomerular filtration rate > NRG Serum or plasma glucose measurement (mass/volume) 89 mg/dL 70-105 Serum or plasma calcium measurement (mass/volume) 9.0 mg/dL 8.5-10.1 Complete blood count (CBC) with automate d white blood cell (WBC) differential - 10/30/19 05:58 Blood leukocytes automated count (number/volume) 6.4 10*3/uL 4.3-11.0 Blood erythrocytes automated count (number/volume) 4.10 10*6/uL 4.35-5.85 Venous blood hemoglobin measurement (mass/volume) 12.7 g/dL 13.3-17.7 Blood hematocrit (volume fraction) 40 % 40-54 Automated erythrocyte mean corpuscular volume 97 [ foz_us] 80-99 Automated erythrocyte mean corpuscular h emoglobin (mass per erythrocyte) 31 pg 25-34 Automated erythrocyte mean corpuscular h emoglobin concentration measurement (mass/volume) 32 g/dL 32-36 Automated erythrocyte distribution width ratio 16. 2 % 10.0- 14.5 Automated blood platelet count (count/volume) 176 10*3/uL 130-400 Automated blood platelet mean volume measurement 11.5 [foz_us] 7.4-10.4 Automated blood neutrophils/100 leukocytes 78 % 42-75 Automated blood lymphocytes/100 leukocytes 12 % 12-44 Blood monocytes/100 leukocytes 9 % 0-12 Automated blood eosinophils/100 leukocytes 1 % 0-10 Automated blood basophils/100 leukocytes 0 % 0-10 Blood neutrophils automated count (number/volume) 5.0 10*3 1.8-7.8 Blood lymphocytes automated count (number/volume) 0.8 10*3 1.0-4.0 Blood monocytes automated count (number/volume) 0. 6 10*3 0.0-1.0 Automated eosinophil count 0.1 10*3/uL 0 .0-0.3 Automated blood basophil count (count/volume) 0.0 10*3/uL 0.0-0.1 PT panel in platelet poor plasma by coag ulation assay - 10/30/19 05:58 Prothrombin time (PT) in platelet poor plasma by coagu lation assay 15.5 s 12.2-14.7 INR in platelet poor plasma or blood by coagulation as say 1.2 0.8-1.4 Activated partial thromboplastin time (a PTT) in platelet poor plasma bycoagulation assay - 10/30/19 05:58 Activated partial thromboplastin time (a PTT) in platelet poor plasma bycoagulation assay 42 s 24-35 Blood lactic acid measurement (moles/vol ume) - 10/30/19 05:58 Blood lactic acid measurement (moles/volume) 1.20 mmol/L 0.50-2.00 Serum or plasma lithium measurement (mol es/volume) - 10/30/19 05:58 BNP PT 408.9 pg/mL <100.0 Comprehensive metabolic panel - 10/30/19 05:58 Serum or plasma sodium measurement (moles/volume) 144 mmol/L 135-145 Serum or plasma potassium measurement (moles/volume) 4.3 mmol/L 3.6-5.0 Serum or plasma chloride measurement (moles/volume) 110 mmol/L 98-107 Carbon dioxide 21 mmol/L 21-32 Serum or plasma anion gap determination (moles/volume) 13 mmol/L 5-14 Serum or plasma urea nitrogen measurement (mass/volume ) 20 mg/dL 7-18 Serum or plasma creatinine measurement (mass/volume) 0.98 mg/dL 0.60-1.30 Serum or plasma urea nitrogen/creatinine mass ratio 20 NRG Serum or plasma creatinine measurement w ith calculation of estimated glomerular filtration rate > NRG Serum or plasma glucose measurement (mass/volume) 95 mg/dL 70-105 Serum or plasma calcium measurement (mass/volume) 9.0 mg/dL 8.5-10.1 Serum or plasma total bilirubin measurement (mass/volu me) 0.7 mg/dL 0.1-1.0 Serum or plasma alkaline phosphatase deana surement (enzymatic activity/volume) 54 U/L 40-136 Serum or plasma aspartate aminotransfera se measurement (enzymatic activity/volume) 17 U/L 5-34 Serum or plasma alanine aminotransferase measurement (enzymatic activity/volume) 13 U/L 0-55 Serum or plasma protein measurement (mass/volume) 6.9 g/dL 6.4-8.2 Serum or plasma albumin measurement (mass/volume) 4.2 g/dL 3.2-4.5 CALCIUM CORRECTED 8.8 mg/dL 8.5-10.1 Magnesium - 10/30/19 05:58 Magnesium 2.4 mg/dL 1.6-2.4 Serum or plasma creatine kinase measurem ent (enzymatic activity/volume) - 10/30/19 05:58 Serum or plasma creatine kinase measurem ent (enzymatic activity/volume) 85 U/L 30-200 Serum or plasma creatine kinase MB measu rement (enzymatic activity/volume) - 10/30/19 05:58 Serum or plasma creatine kinase MB measu rement (enzymatic activity/volume) 3.1 ng/mL <6.6 Serum or plasma troponin i.cardiac measu rement (mass/volume) - 10/30/19 05:58 Serum or plasma troponin i.cardiac measurement (mass/v olume) < ng/mL <0.028 Serum or plasma thyrotropin measurement by detection limit <=0.05 miu/l (units/volume) - 10/30/19 05:58 Serum or plasma thyrotropin measurement by detection limit <=0.05 miu/l (units/volume) 2.80 u[iU]/mL 0.35-4.94 Serum or plasma ethanol measurement (mas s/volume) - 10/30/19 05:58 Serum or plasma ethanol measurement (mass/volume) < mg/dL <10 Myoglobin, serum - 10/30/19 05:58 Myoglobin, serum 76.2 ng/mL 10.0-92.0 Bacterial blood culture - 10/30/19 05:58 FREE TEXT EXTERNAL SEE COMMENTS NRG QUANTITY OF GROWTH Isolated NRG Bacterial blood culture [id number] NR Influenza virus A and B antigen detectio n - 10/30/19 06:24 FLU RESULT NEGATIVE FOR INFLUENZA A AND B ANTIGENS BY IA NRG Arterial blood gas measurement - 9 06:36 Blood pCO2 33 mm[Hg] 35-45 Blood pO2 99 mm[Hg] 79-93 Arterial blood bicarbonate measurement (moles/volume) 22 mmol/L 23-27 Arterial blood base excess by calculation -2.1 mmo l/L -2.5-2.5 Arterial blood oxygen saturation measurement 99 % 94-100 * Inhaled oxygen flow rate 6L NRG Arterial blood pH measurement with patient temperature correction 7.44 7.37-7.43 Arterial blood carbon dioxide, total measurement (mole s/volume) 22.5 mmol/L 21.0-31.0 Body site NOT INDICATED NRG Assessment of wrist artery patency prior to arterial p uncture NA NRG Setting of ventilation mode NO NR G Measurement of body temperature 98.7 NRG Complete urinalysis with reflex to cultu re - 10/30/19 07:15 Urine color determination YELLOW NRG Urine clarity determination CLEAR NR G Urine pH measurement by test strip 6.0 5-9 Specific gravity of urine by test strip 1.020 1.016-1.022 Urine protein assay by test strip, semi-quantitative NEGATIVE NEGATIVE Urine glucose detection by automated test strip NE GATIVE NEGATIVE Erythrocytes detection in urine sediment by light micr oscopy NEGATIVE NEGATIVE Urine ketones detection by automated test strip NE GATIVE NEGATIVE Urine nitrite detection by test strip NEGATIVE NEGATIVE Urine total bilirubin detection by test strip NEGA TIVE NEGATIVE Urine urobilinogen measurement by automated test strip (mass/volume) 0.2 mg/dL < = 1.0 Urine leukocyte esterase detection by dipstick NEG ATIVE NEGATIVE Automated urine sediment erythrocyte cou nt by microscopy (number/high power field) NONE NRG Automated urine sediment leukocyte count by microscopy (number/high power field) NONE NRG Bacteria detection in urine sediment by light microsco py NEGATIVE NRG Squamous epithelial cells detection in u rine sediment by light microscopy RARE NRG Crystals detection in urine sediment by light microsco py NONE NRG Casts detection in urine sediment by light microscopy NONE NRG Mucus detection in urine sediment by light microscopy NEGATIVE NRG Complete urinalysis with reflex to culture NO NRG Urine drug screening test - 10/30/19 07: 15 Urine phencyclidine detection by screening method NEGATIVE NEGATIVE Urine benzodiazepines detection by screening method NEGATIVE NEGATIVE Urine cocaine detection NEGATIVE NEGATI VE Urine amphetamines detection by screening method N EGATIVE NEGATIVE Urine methamphetamine detection by screening method NEGATIVE NEGATIVE Urine cannabinoids detection by screening method P OSITIVE NEGATIVE Urine opiates detection by screening method POSITI VE NEGATIVE Urine barbiturates detection NEGATIVE N EGATIVE Screening urine tricyclic antidepressants detection NEGATIVE NEGATIVE Urine methadone detection by screening method NEGA TIVE NEGATIVE Urine oxycodone detection NEGATIVE NEGA TIVE Urine propoxyphene detection NEGATIVE N EGATIVE Bacterial blood culture - 10/30/19 07:18 FREE TEXT EXTERNAL SEE COMMENTS NRG QUANTITY OF GROWTH Isolated NRG Bacterial blood culture [id number] NRG Serum or plasma troponin i.cardiac measu rement (mass/volume) - 10/30/19 11:38 Serum or plasma troponin i.cardiac measurement (mass/v olume) < ng/mL <0.028 Complete blood count (CBC) with automate d white blood cell (WBC) differential - 10/31/19 04:45 Blood leukocytes automated count (number/volume) 5.8 10*3/uL 4.3-11.0 Blood erythrocytes automated count (number/volume) 3.65 10*6/uL 4.35-5.85 Venous blood hemoglobin measurement (mass/volume) 11.4 g/dL 13.3-17.7 Blood hematocrit (volume fraction) 35 % 40-54 Automated erythrocyte mean corpuscular volume 96 [ foz_us] 80-99 Automated erythrocyte mean corpuscular h emoglobin (mass per erythrocyte) 31 pg 25-34 Automated erythrocyte mean corpuscular h emoglobin concentration measurement (mass/volume) 33 g/dL 32-36 Automated erythrocyte distribution width ratio 15. 8 % 10.0- 14.5 Automated blood platelet count (count/volume) 158 10*3/uL 130-400 Automated blood platelet mean volume measurement 11.9 [foz_us] 7.4-10.4 Automated blood neutrophils/100 leukocytes 92 % 42-75 Automated blood lymphocytes/100 leukocytes 4 % 12-44 Blood monocytes/100 leukocytes 4 % 0-12 Automated blood eosinophils/100 leukocytes 0 % 0-10 Automated blood basophils/100 leukocytes 0 % 0-10 Blood neutrophils automated count (number/volume) 5.3 10*3 1.8-7.8 Blood lymphocytes automated count (number/volume) 0.2 10*3 1.0-4.0 Blood monocytes automated count (number/volume) 0. 3 10*3 0.0-1.0 Automated eosinophil count 0.0 10*3/uL 0 .0-0.3 Automated blood basophil count (count/volume) 0.0 10*3/uL 0.0-0.1 Comprehensive metabolic panel - 10/31/19 04:45 Serum or plasma sodium measurement (moles/volume) 140 mmol/L 135-145 Serum or plasma potassium measurement (moles/volume) 3.8 mmol/L 3.6-5.0 Serum or plasma chloride measurement (moles/volume) 106 mmol/L 98-107 Carbon dioxide 22 mmol/L 21-32 Serum or plasma anion gap determination (moles/volume) 12 mmol/L 5-14 Serum or plasma urea nitrogen measurement (mass/volume ) 19 mg/dL 7-18 Serum or plasma creatinine measurement (mass/volume) 0.94 mg/dL 0.60-1.30 Serum or plasma urea nitrogen/creatinine mass ratio 20 NRG Serum or plasma creatinine measurement w ith calculation of estimated glomerular filtration rate > NRG Serum or plasma glucose measurement (mass/volume) 126 mg/dL 70-105 Serum or plasma calcium measurement (mass/volume) 8.1 mg/dL 8.5-10.1 Serum or plasma total bilirubin measurement (mass/volu me) 0.6 mg/dL 0.1-1.0 Serum or plasma alkaline phosphatase deana surement (enzymatic activity/volume) 44 U/L 40-136 Serum or plasma aspartate aminotransfera se measurement (enzymatic activity/volume) 13 U/L 5-34 Serum or plasma alanine aminotransferase measurement (enzymatic activity/volume) 10 U/L 0-55 Serum or plasma protein measurement (mass/volume) 5.8 g/dL 6.4-8.2 Serum or plasma albumin measurement (mass/volume) 3.5 g/dL 3.2-4.5 CALCIUM CORRECTED 8.5 mg/dL 8.5-10.1 Manual absolute plasma cell count - 01/18 04:45 Blood monocytes/100 leukocytes 5 % NRG Manual blood segmented neutrophils/100 leukocytes 89 % NRG Blood band neutrophils/100 leukocytes 3 % NRG Manual blood lymphocytes/100 leukocytes 3 % NRG Blood erythrocyte morphology finding identification NORMAL NRG Manual blood nucleated erythrocytes/100 leukocytes ratio 1 NRG Encounters ACCT No. Visit Date/Time Discharge Status Pt. Type Provider Facility Loc./Unit Complaint [id number] 11/21/2019 11:10:00 23:59:59 CLS Preadmit [facility] LAB COPD,EXCESSIVE SLEEPINESS,EMPHYSEMA [id number] 11/09/2019 10:31:00 23:59:59 CLS Outpatient PATRICIA REID MD [facility] PULM COPD [id number] 11/03/2019 07:55:00 09:45:00 DIS Outpatient Marta HERNANDEZ MD [facility] CATH PAF [id number] 11/02/2019 09:30:00 23:59:59 CLS Preadmit [facility] PULM DYSPNEA,EXCESSI VE SLEEPINESS,COPD [id number] 10/30/2019 07:12:00 14:10:00 DIS Inpatient MARGARITA EDGAR, ISAI R [facility] 4TH ACUTE RESP FAILURE WITH HYPOXIA,COPD EXACERBATION [id number] 08/03/2019 09:36:00 00:01:00 DIS Outpatient OSCAR KELLER APRN [facility] PULM DYSPNEA,EXCESSI VE SLEEPINESS,COPD [id number] 10/04/2019 10:42:00 15:50:00 DIS Inpatient FRANKLIN EDGAR, PATRICIA Lozano [facility] 4TH CHF EXACERBATION;COPD;C HEST PAIN [id number] 09/09/2019 13:43:00 23:59:59 CLS Preadmit [facility] RAD COPD [id number] 08/23/2019 19:43:00 06:10:00 DIS Outpatient OSCAR KE[facility]ER [facility] SLEEP DYSPNEA,EXCESSI VE SLEEPINESS [id number] 08/22/2019 09:01:00 23:59:59 CLS Outpatient OSCAR KELLER APRN [facility] RAD DYSPNEA,EXCESSI VE SLEEPINESS [id number] 08/18/2019 07:39:00 23:59:59 CLS Outpatient Marta HERNANDEZ MD [facility] CARD CHEST PAIN [id number] 08/15/2019 13:48:00 14:17:00 DIS Inpatient MARGARITA EDGAR, ISAI Mahoney [facility] ICU CHF, ATRIAL FIB, COPD [id number] 07/06/2019 00:12:00 23:59:59 CLS Preadmit Marta HERNANDEZ MD [facility] CARD DIZZINESS [id number] 04/06/2019 13:36:00 00:01:00 DIS Outpatient Marta HERNANDEZ MD [facility] CARD DIZZINESS [id number] 06/12/2019 07:30:00 17:08:00 DIS Inpatient BENJAMIN MOSER MD [facility] 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 [id number] 04/06/2019 13:30:00 23:59:59 CLS Outpatient Marta HERNANDEZ MD [facility] CARD DIZZINESS [id number] 03/30/2019 10:34:00 23:59:59 CLS Preadmit Marta HERNANDEZ MD [facility] CARD DIZZINESS,NEAR SYNCOPE [id number] 05/14/2018 08:55:00 23:59:59 CLS Outpatient BOBBY HSIEH APRN [facility] RAD R06.00 [id number] 07/11/2016 09:21:00 13:40:00 DIS Outpatient RUSTAM COSME DO [facility] SDC SCREENING [id number] 07/09/2016 05:44:00 016 11:21:00 DIS Outpatient RUSTAM COSME DO [facility] PREOP SCREENING [id number] 10/31/2015 11:16:00 015 11:37:00 DIS Outpatient OSCAR KELLER APRN [facility] SLEEP SNORING, UMESH Baker IN SLEEP, EDS, HPN [id number] 08/24/2015 12:48:00 015 23:59:59 CLS Outpatient OSCAR KELLER APRN [facility] RT COPD [id number] 08/24/2015 12:47:00 Document Registration [id number] 08/24/2015 12:47:00 Document Registration [id number] 08/24/2015 12:47:00 Document Registration [id number] 10/30/2011 12:45:00 Document Registration [id number] 10/27/2011 13:30:00 Document Registration [id number] 05/15/2011 12:43:00 Document Registration [id number] 04/17/2011 15:28:00 Document Registration
== END 2019-11-03 09:45 ==
LOC: CATH 07:55
PROVIDERS: ATTEND Internal Medicine Interventional Cardiology
DX: I48.19 Other persistent atrial fibrillation (principal); J44.9 Chronic obstructive pulmonary disease, unspecified; E66.9 Obesity, unspecified; Z68.39 Body mass index [BMI] 39.0-39.9, adult; F51.8 Other sleep disorders not due to a substance or known physiological condition; I49.3 Ventricular premature depolarization; I11.0 Hypertensive heart disease with heart failure; I50.32 Chronic diastolic (congestive) heart failure; I25.10 Atherosclerotic heart disease of native coronary artery without angina pectoris; I70.0 Atherosclerosis of aorta; Z88.2 Allergy status to sulfonamides; Z79.01 Long term (current) use of anticoagulants; Z79.899 Other long term (current) drug therapy; Z82.49 Family history of ischemic heart disease and other diseases of the circulatory system; Z80.9 Family history of malignant neoplasm, unspecified
CPT/HCPCS: 33285

== ENCOUNTER 2019-11-09 10:31 | Outpatient (RCR) | payer MEDICARE ==
[~2019-11-09] VITALS: Ht 175.3 cm; Wt 97.5 kg
[~2019-11-09 10:31] MED LIST changes: +ACHYD1T PO; -HYDR-3820 PO
[2019-11-09 10:39] VITALS: BP 122/60
== END 2020-02-07 | disposition home or self-care (01) ==
LOC: PULM 10:31
PROVIDERS: ATTEND Family Medicine
DX: J44.1 Chronic obstructive pulmonary disease with (acute) exacerbation (principal)
CPT/HCPCS: 99211

== ENCOUNTER → 2019-12-02 | Outpatient (CLI) | payer MEDICARE ==
[~2019-12-02] MED LIST changes: -ACHYD1T PO; +CATHETER FLUSH 10 ML SYR IV PRN; -DILT120C88 PO; +DILT120C94 PO; +HOLD METFORMIN - RECEIVED CONTRAST 20 ML VIAL IV SCH; +HYDR-3820 PO; +INDO50CA11 PO; -INDO50CA82 PO; +IOHEXOL 350 MG/ML 100 ML (OMNIPAQUE 350) VIAL IV ONE; +NS 100 ML (IVPB) BAG IV ONE
[2019-12-02 13:08] LABS: BUN/CREATININE RATIO 18; CREATININE SERUM 1.05 MG/DL (0.60-1.30); GFR ESTIMATED > 60
--- NOTE | 2019-12-02 19:30 | Diagnostic Imaging Report ---
PROCEDURE: CT chest with contrast only. TECHNIQUE: Multiple contiguous axial images were obtained through the chest after administration of intravenous contrast. Auto Exposure Controls were utilized during the CT exam to meet ALARA standards for radiation dose reduction. DATE: December 02, 2019. COMPARISON: Chest radiograph October 31, 2019. CT chest August 22, 2019. INDICATION: 74-year-old male, emphysema. Excessive fatigue. FINDINGS: There are mild linear opacities in the right lower lobe, left lower lobe, right middle lobe, right upper lobe, left upper lobe likely relating to mild multifocal scarring and/or atelectasis. There is very subtle centrilobular nodularity which could reflect respiratory bronchiolitis interstitial lung disease. There is a small right pleural effusion. There are no changes of cystic lung disease. There is no pneumothorax. There is no bronchiectasis. The central airways are patent. There is no identified pulmonary nodule or lung mass concerning for potential malignancy. There are coronary artery calcifications and additional areas of atherosclerotic disease. The heart is not enlarged. There is no pericardial effusion. There is no identified pulmonary embolus. There is no identified abnormally enlarged mediastinal, hilar, or axillary lymph node which meets CT size criteria for adenopathy. There is a 6 mm low-attenuation lesion in the dome of the liver which is too small to characterize. There is high attenuation within the gallbladder which may relate to sludge, stones, and/or vicarious excretion of recently administered contrast. There is no evidence of acute cholecystitis. There is no biliary ductal dilation. There is a low-attenuation lesion in the left kidney incompletely imaged measuring up to 5.3 cm in size consistent with a cyst in its imaged portions. There is nonspecific mild thickening of the adrenal glands. There is a very small hiatal hernia. There are multilevel degenerative changes of the spine. There are anchors in the right humeral head. 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 IMPRESSION: CT CHEST. 1. Small right pleural effusion. 2. Mild multifocal scarring and or atelectasis. 3. No changes of cystic lung disease. 4. Very subtle centrilobular nodules which potentially could reflect respiratory bronchiolitis interstitial lung disease, especially with history of smoking. 5. High attenuation in the gallbladder which may relate to sludge, stones, and/or vicarious excretion of recently administered contrast. No evidence of acute cholecystitis. There is no biliary ductal dilation. Dictated by: Dictated on workstation # [id number]
== END ==
LOC: RT 12:35
PROVIDERS: ATTEND Nurse Practitioner Family
DX: J43.9 Emphysema, unspecified (principal); G47.10 Hypersomnia, unspecified; J90 Pleural effusion, not elsewhere classified; G47.50 Parasomnia, unspecified; G47.36 Sleep related hypoventilation in conditions classified elsewhere; R91.8 Other nonspecific abnormal finding of lung field
CPT/HCPCS: 36415; 71260; 82565; 84520

== ENCOUNTER → 2020-02-02 | Outpatient (CLI) | payer MEDICARE ==
[~2020-02-02] MED LIST changes: +ACHYD1T PO; -CATHETER FLUSH 10 ML SYR IV PRN; +DILT120C88 PO; -DILT120C94 PO; -HOLD METFORMIN - RECEIVED CONTRAST 20 ML VIAL IV SCH; -HYDR-3820 PO; -INDO50CA11 PO; +INDO50CA82 PO; -IOHEXOL 350 MG/ML 100 ML (OMNIPAQUE 350) VIAL IV ONE; -NS 100 ML (IVPB) BAG IV ONE
--- NOTE | 2020-02-02 12:13 | Diagnostic Imaging Report ---
INDICATION: Fall with pain in the sternum. TIME OF EXAM: 11:47 a.m. COMPARISON: Comparison is made with prior chest from 10/31/2019. FINDINGS: Linear regions of parenchymal density are identified in the mid lower and lung mike suggestive of scarring or subsegmental atelectasis. There appears to be a small amount of pleural fluid on the right. The pulmonary vascularity is normal. There is no pneumothorax. IMPRESSION: Bilateral subsegmental atelectasis or scarring with small right pleural effusion. Dictated by: Dictated on workstation # [id number]
== END ==
LOC: RAD 11:26
PROVIDERS: ATTEND Nurse Practitioner Family
DX: J90 Pleural effusion, not elsewhere classified (principal); J96.91 Respiratory failure, unspecified with hypoxia; J43.9 Emphysema, unspecified; R09.02 Hypoxemia; R06.00 Dyspnea, unspecified; W07.XXXD Fall from chair, subsequent encounter
CPT/HCPCS: 71046

== ENCOUNTER → 2020-03-01 | Outpatient (CLI) | payer MEDICARE ==
--- NOTE | 2020-03-01 15:58 | Diagnostic Imaging Report ---
INDICATION: Pain. COMPARISON: None available. TECHNIQUE: Three radiographs of the right knee dated March 01, 2020. FINDINGS: Right total knee arthroplasty is in place without evidence of hardware complication. Calcifications are identified both medial and lateral to the right knee arthroplasty. Most of this appears well-corticated and likely postsurgical and related to heterotopic ossification. However, region of calcifications just medial to the medial femoral condyle does not as well corticated, particularly on the oblique radiograph. Moderate vascular calcifications. Soft tissue swelling about the knee, particularly anteriorly. Joint effusion is present. IMPRESSION: 1. Right total knee arthroplasty without evidence of hardware complication. 2. Calcifications about the knee both medially and laterally are favored to relate to heterotopic ossification. The calcifications medial to the medial femoral condyle are also favored to relate to heterotopic ossification, though given the slightly indistinct margin on the oblique radiograph, recent chip fracture would be an additional consideration though felt less likely. 3. Soft tissue swelling about the knee. 4. Moderate vascular calcifications. Dictated by: Dictated on workstation # [id number]
== END ==
LOC: RAD 15:14
PROVIDERS: ATTEND Nurse Practitioner
DX: M25.561 Pain in right knee (principal); Z96.651 Presence of right artificial knee joint; M25.461 Effusion, right knee
CPT/HCPCS: 73562

== ENCOUNTER 2020-04-06 13:46 | Inpatient (IN) | payer MEDICARE ==
[~2020-04-06] VITALS: Ht 175.3 cm; Wt 97.5 kg
[2020-04-06 14:24] LABS: BASOPHILS # (AUTO) 0.1 10^3/uL (0.0-0.1); BASOPHILS % (AUTO) 1 % (0-10); EOSINOPHILS # (AUTO) 0.1 10^3/uL (0.0-0.3); EOSINOPHILS % (AUTO) 1 % (0-10); HEMATOCRIT 27 % (40-54); HEMOGLOBIN 8.2 G/DL (13.3-17.7); LYMPHOCYTES # (AUTO) 0.6 X 10^3 (1.0-4.0); LYMPHOCYTES % (AUTO) 7 % (12-44); MEAN CORPUSCULAR HEMOGLOBIN 28 PG (25-34); MEAN CORPUSCULAR HGB CONC 31 G/DL (32-36); MEAN CORPUSCULAR VOLUME 92 FL (80-99); MEAN PLATELET VOLUME 9.8 FL (7.4-10.4); MONOCYTES # (AUTO) 0.8 X 10^3 (0.0-1.0); MONOCYTES % (AUTO) 9 % (0-12); NEUTROPHILS # (AUTO) 7.2 X 10^3 (1.8-7.8); NEUTROPHILS % (AUTO) 82 % (42-75); PLATELET COUNT 366 10^3/uL (130-400); RED CELL DISTRIBUTION WIDTH 16.9 % (10.0-14.5); WHITE BLOOD COUNT 8.7 10^3/uL (4.3-11.0)
[2020-04-06 14:37] LABS: ALBUMIN 3.6 GM/DL (3.2-4.5); POTASSIUM 4.5 MMOL/L (3.6-5.0)
[2020-04-06 14:38] LABS: CALCIUM 8.3 MG/DL (8.5-10.1)
[2020-04-06 14:40] LABS: INR 1.6 (0.8-1.4); PROTHROMBIN TIME PATIENT 19.5 SEC (12.2-14.7); TOTAL PROTEIN 6.7 GM/DL (6.4-8.2)
[2020-04-06 14:41] LABS: BILIRUBIN,TOTAL 0.5 MG/DL (0.1-1.0)
[2020-04-06 14:43] LABS: CREATININE SERUM 1.24 MG/DL (0.60-1.30)
[2020-04-06 14:50] LABS: ANISOCYTOSIS SLIGHT; BAND NEUTROPHILS 0 %; BASOPHILS % (MANUAL) 0 %; EOSINOPHILS % (MANUAL) 2 %; LYMPHOCYTES % (MANUAL) 8 %; MONOCYTES % (MANUAL) 5 %; NEUTROPHILS % (MANUAL) 85 %
--- NOTE | 2020-04-06 14:55 | Diagnostic Imaging Report ---
INDICATION: Shortness of air, respiratory difficulty COMPARISON: 02/02/2020 TECHNIQUE: Single frontal radiograph of the chest dated 04/06/2020. FINDINGS: The cardiac silhouette is significantly enlarged. Mild central pulmonary vascular congestion. Developing and increasing small bibasilar pleural-parenchymal opacities with additional patchy opacities within the right midlung. Increasing prominence of the pulmonary interstitium. No pneumothorax. No acute osseous abnormality. IMPRESSION: Constellation of findings is suggestive of mild congestive heart failure/volume overload with associated small bibasilar pleural effusions and minimal interstitial edema. Dictated by: Dictated on workstation # [id number]
[2020-04-06] MEDS ORDERED: FUROSEMIDE 40 MG/4 ML INJ (LASIX) IV STA (15:49)
[2020-04-06] MEDS ORDERED: methylPREDNISolone 125 MG (Solu-MEDROL) VIAL IV STA (15:49)
[2020-04-06] MEDS ORDERED: RT-ALBUTEROL SULF 2.5 MG/3 ML PRE-MIX VIAL INH STA (15:49)
[2020-04-06 16:06] LABS: BILIRUBIN,URINE NEGATIVE (NEGATIVE); CLARITY,URINE CLEAR; COLOR,URINE YELLOW; GLUCOSE, URINE (UA) NEGATIVE (NEGATIVE); KETONES,URINE NEGATIVE (NEGATIVE); LEUKOCYTE ESTERASE ,URINE NEGATIVE (NEGATIVE); NITRITE,URINE NEGATIVE (NEGATIVE); PROTEIN,URINE NEGATIVE (NEGATIVE)
[2020-04-06 16:18] LABS: WBC,URINE RARE /HPF
[2020-04-06 16:19] LABS: BACTERIA,URINE TRACE /HPF
--- NOTE | 2020-04-06 16:50 | ED General ---
General Chief Complaint: Respiratory Problems Stated Complaint: ACUTE COPD,ACUTE HF,ELEVATED TROPONIN Nursing Triage Note: Assisted pt via ED w/c to room #10 with c/o SOA. Pt reports SOA began 04/04/20 and have gradually increased in severity. Pt reports to utilize 2L home O2 at all times, but is currently utilzing 4L d/t SOA. Pt denies cough or fever. Pt reports hx COPD. A&OX4. Nursing Sepsis Screen: No Definite Risk Source of Information: Patient Exam Limitations: No Limitations History of Present Illness Date Seen by Provider: April 06, 2020 Time Seen by Provider: 14:56 Initial Comments Here with increasing shortness of air over the last couple of days. Apparently he was recently and [facility] for intermediate after a fall in early February. Got out of the [facility] a few days ago. Is doing right on the first day and even last night but this morning woke up with worsening shortness of breath that has been worse today today. Denies cough or fever. States he does have COPD and thinks that that has been aggravated. Also notes that his legs are quite swollen and that is worse over the last couple of days as well. Denies nausea, vomiting, diarrhea or diaphoresis. Admits to drinking 2 beers yesterday. Timing/Duration: 1-2 Days, Getting Worse Severity: Moderate Associated Systoms: No Cough, No Fever/Chills, No Nausea/Vomiting; Shortness of Air, Weakness Allergies and Home Medications Allergies Coded Allergies: Sulfa (Sulfonamide Antibiotics) (Verified Allergy, Unknown, 10/04/19) Home Medications Acetaminophen 500 Mg Tablet, 1,000 MG PO Q4H PRN for PAIN-MILD, (Reported) Albuterol Sulfate 8.5 Gm Hfa.aer.ad, 1-2 PUFF IH Q4H PRN for WHEEZING, (Reported) Albuterol Sulfate 2.5 Mg/0.5 Ml Vial.neb, 2.5 MG NEB Q4H PRN for SHORTNESS OF BREATH, (Reported) Amiodarone HCl 200 Mg Tablet, 200 MG PO BID, (Reported) Amlodipine Besylate 10 Mg Tablet, 10 MG PO DAILY, (Reported) Apixaban 5 Mg Tablet, 5 MG PO BID, (Reported) Diltiazem HCl 120 Mg Cap.er.24h, 120 MG PO DAILY, (Reported) Enalapril Maleate 20 Mg Tablet, 20 MG PO DAILY, (Reported) Furosemide 80 Mg Tablet, 80 MG PO DAILY Prescribed by: PATRICIA HIGGINBOTHAM on 10/06/19 0954 Hydrocodone Bit/Acetaminophen 1 Each Tablet, 1 TAB PO Q4H PRN for PAIN-MODERATE, (Reported) Metoprolol Tartrate 100 Mg Tablet, 100 MG PO BID, (Reported) Potassium Chloride 10 Meq Tablet.er, 10 MEQ PO DAILY Prescribed by: PATRICIA HIGGINBOTHAM on 10/06/19 0953 Prednisone 10 Mg Tab.ds.pk, 10 MG PO DAILY Take 6 tabs(60mg)daily,decrease by 1 tab(10MG)daily. Prescribed by: PATRICIA HIGGINBOTHAM on 11/01/19 1120 Patient Home Medication List Home Medication List Reviewed: Yes Review of Systems Review of Systems Constitutional: see HPI; No chills, No fever; weakness EENTM: no symptoms reported Respiratory: dyspnea on exertion, short of breath, wheezing Cardiovascular: No chest pain; edema Gastrointestinal: No abdominal pain, No nausea, No vomiting Genitourinary: no symptoms reported Musculoskeletal: no symptoms reported All Other Systems Reviewed Negative Unless Noted: Yes Past Tuuuvgh-Gbbizj-Jxnnfz Hx Past Med/Social Hx: Reviewed Nursing Past Med/Soc Hx Patient Social History Alcohol Use: Rarely Uses Number of Drinks Today: 0 Alcohol Beverage of Choice: Beer Recreational Drug Use: No Drug of Choice: THC ON A REGULAR BASIS, SINCE THE S Smoking Status: Former Smoker Type Used: Cigarettes Former Smoker, Quit: Jan 13, 2009 2nd Hand Smoke Exposure: No Recent Foreign Travel: No Contact w/Someone Who Travel: No Recent Infectious Disease Expo: No Recent Hopitalizations: Yes (08/2019) Immunizations Up To Date Tetanus Booster (TDap): Unknown PED Vaccines UTD: No Date of Pneumonia Vaccine: Aug 30, 2019 Date of Influenza Vaccine: Aug 30, 2019 Seasonal Allergies Seasonal Allergies: Yes Past Medical History Surgeries: Yes (left knee replaced x2, right TKR, shoulder sx) Appendectomy, Cardiac, Orthopedic Respiratory: Yes COPD Currently Using CPAP: No Currently Using BIPAP: No Cardiac: Yes Atrial Fibrillation, Chronic Edema/Swelling, Hypertension, Palpitations, Valvular Heart Disease Neurological: No Reproductive Disorders: No Genitourinary: No Gastrointestinal: No Musculoskeletal: Yes (BILATERAL KNEE SURGERIES, RIGHT SHOULDER SURGERIES) Arthritis Endocrine: No HEENT: No Cancer: No Psychosocial: Yes Anxiety Integumentary: No Blood Disorders: No Adverse Reaction/Blood Tranf: No Family Medical History Reviewed Nursing Family Hx Asbestosis FH: CABG (coronary artery bypass surgery) 19 FATHER FH: breast cancer 19 MOTHER FH: uterine cancer 19 MOTHER Hypertension 19 FATHER Physical Exam-Suspected Sepsis Physical Exam Vital Signs Vital Signs - First Documented Capillary Refill : Less Than 3 Seconds Blood Pressure Mean: 83 Height, Weight, BMI Height: 5'9.00" Weight: 215lbs. 0.0oz. 97.375453il; 30.00 BMI Method:Stated General Appearance: WD/WN, Mild Distress HEENT: PERRL/EOMI, Pharynx Normal Neck: Non Tender, Supple Respiratory: Crackles, Respiratory Distress (mild), Wheezing Cardiovascular: Regular Rate, Rhythm, No Murmur Gastrointestinal: Non Tender, Soft Back: Normal Inspection, No CVA Tenderness, No Vertebral Tenderness Extremity: Normal Range of Motion, Non Tender, Pedal Edema (3+ above in his bilateral) Neurologic/Psychiatric: Alert, Oriented x3 Skin: normal color, warm/dry Focused Exam Lactate Level 04/06/20 14:30: Lactic Acid Level 1.71 Lactic Acid Level Laboratory Tests Test 04/06/20 14:30 Lactic Acid Level 1.71 MMOL/L (0.50-2.00) Progress/Results/Core Measures Suspected Sepsis Recent Fever Within 48 Hours: No Infection Criteria Present: Suspected New Infection New/Unexplained Altered Menta: No Sepsis Screen: No Definite Risk SIRS Temperature: Pulse: 49 Respiratory Rate: 20 Laboratory Tests 04/06/20 14:13: White Blood Count 8.7 Blood Pressure 116 /68 Mean: 83 04/06/20 14:30: Lactic Acid Level 1.71 Laboratory Tests 04/06/20 14:13: Creatinine 1.24, INR Comment 1.6H, Platelet Count 366, Total Bilirubin 0.5 Results/Orders Lab Results Laboratory Tests Test 04/06/20 14:13 04/06/20 14:30 04/06/20 15:57 Range/Units White Blood Count 8.7 4.3-11.0 10^3/uL Red Blood Count 2.92 L 4.35-5.85 10^6/uL Hemoglobin 8.2 L 13.3-17.7 G/DL Hematocrit 27 L 40-54 % Mean Corpuscular Volume 92 80-99 FL Mean Corpuscular Hemoglobin 28 25-34 PG Mean Corpuscular Hemoglobin Concent 31 L 32-36 G/DL Red Cell Distribution Width 16.9 H 10.0-14.5 % Platelet Count 366 130-400 10^3/uL Mean Platelet Volume 9.8 7.4-10.4 FL Neutrophils (%) (Auto) 82 H 42-75 % Lymphocytes (%) (Auto) 7 L 12-44 % Monocytes (%) (Auto) 9 0-12 % Eosinophils (%) (Auto) 1 0-10 % Basophils (%) (Auto) 1 0-10 % Neutrophils # (Auto) 7.2 1.8-7.8 X 10^3 Lymphocytes # (Auto) 0.6 L 1.0-4.0 X 10^3 Monocytes # (Auto) 0.8 0.0-1.0 X 10^3 Eosinophils # (Auto) 0.1 0.0-0.3 10^3/uL Basophils # (Auto) 0.1 0.0-0.1 10^3/uL Neutrophils % (Manual) 85 % Lymphocytes % (Manual) 8 % Monocytes % (Manual) 5 % Eosinophils % (Manual) 2 % Basophils % (Manual) 0 % Band Neutrophils 0 % Anisocytosis SLIGHT Prothrombin Time 19.5 H 12.2-14.7 SEC INR Comment 1.6 H 0.8-1.4 Activated Partial Thromboplast Time 50 H 24-35 SEC Sodium Level 138 135-145 MMOL/L Potassium Level 4.5 3.6-5.0 MMOL/L Chloride Level 103 98-107 MMOL/L Carbon Dioxide Level 24 21-32 MMOL/L Anion Gap 11 5-14 MMOL/L Blood Urea Nitrogen 17 7-18 MG/DL Creatinine 1.24 0.60-1.30 MG/DL Estimat Glomerular Filtration Rate 57 BUN/Creatinine Ratio 14 Glucose Level 81 70-105 MG/DL Calcium Level 8.3 L 8.5-10.1 MG/DL Corrected Calcium 8.6 8.5-10.1 MG/DL Total Bilirubin 0.5 0.1-1.0 MG/DL Aspartate Amino Transf (AST/SGOT) 17 5-34 U/L Alanine Aminotransferase (ALT/SGPT) 14 0-55 U/L Alkaline Phosphatase 66 40-136 U/L Troponin I 0.037 H <0.028 NG/ML C-Reactive Protein High Sensitivity 5.29 H 0.00-0.50 MG/DL B-Type Natriuretic Peptide 551.8 H <100.0 PG/ML Total Protein 6.7 6.4-8.2 GM/DL Albumin 3.6 3.2-4.5 GM/DL Lactic Acid Level 1.71 0.50-2.00 MMOL/L Urine Color YELLOW Urine Clarity CLEAR Urine pH 6.0 5-9 Urine Specific [place] 1.020 1.016-1.022 Urine Protein NEGATIVE NEGATIVE Urine Glucose (UA) NEGATIVE NEGATIVE Urine Ketones NEGATIVE NEGATIVE Urine Nitrite NEGATIVE NEGATIVE Urine Bilirubin NEGATIVE NEGATIVE Urine Urobilinogen 0.2 < = 1.0 MG/DL Urine Leukocyte Esterase NEGATIVE NEGATIVE Urine RBC (Auto) NEGATIVE NEGATIVE Urine RBC NONE /HPF Urine WBC RARE /HPF Urine Squamous Epithelial Cells NONE /HPF Urine Crystals NONE /LPF Urine Bacteria TRACE /HPF Urine Casts PRESENT /LPF Urine Hyaline Casts 5-10 H /LPF Urine Mucus SMALL H /LPF Urine Culture Indicated NO My Orders Orders - FATIMAH SHARMA MD Cbc With Automated Diff (04/06/20 14:15) Comprehensive Metabolic Panel (04/06/20 14:15) Blood Culture (04/06/20 14:15) Sputum Culture (04/06/20 14:15) Urinalysis (04/06/20 14:15) Urine Culture (04/06/20 14:15) Protime With Inr (04/06/20 14:15) Partial Thromboplastin Time (04/06/20 14:15) Chest 1 View, Ap/Pa Only (04/06/20 14:15) Ed Iv/Invasive Line Start (04/06/20 14:15) Troponin I (04/06/20 14:15) Vital Signs Adult Sepsis Patie Q15M (04/06/20 14:15) O2 (04/06/20 14:15) Remove Rings In Anticipation O (04/06/20 14:15) Lactic Acid Analyzer (04/06/20 14:15) BNP (04/06/20 14:15) Hs C Reactive Protein (04/06/20 14:15) Manual Differential (04/06/20 14:13) Ekg Tracing (04/06/20 14:55) Furosemide Injection (Lasix Injection) (04/06/20 15:49) Methylprednisolone Sod Succ (Solu-Medrol (04/06/20 15:49) Albuterol Pre-Mix Nebs (Rt) (Proventil (04/06/20 15:49) Svn Small Volume Nebulizer (04/06/20 15:49) Vital Signs/I&O 04/06/20 04/06/20 04/06/20 04/06/20 13:50 13:50 16:12 16:40 Temp 36.4 36.6 Pulse 51 49 Resp 25 20 B/P (MAP) 127/62 (83) 116/68 Pulse Ox 98 98 91 95 O2 Delivery Nasal Cannula Nasal Cannula Nasal Cannula Nasal Cannula O2 Flow Rate 4.00 4.00 2.00 2.00 Capillary Refill : Less Than 3 Seconds Blood Pressure Mean: 83 Progress Note : Progress Note Seen and evaluated. IV, labs, EKG, chest x-ray, blood cultures and lactic acid ordered. Placed on O2 at 3 L. 1545: Discussed case with Dr. Higginbotham. Except patient for admission, inpatient status for COPD exacerbation and CHF exacerbation with mild elevated troponin. Lasix 40 mg IV and Solu-Medrol 125 mg IV. Albuterol nebulizer treatment 1 ordered. Patient agrees to admission. Dr. Stone consulted. He will see patient in consult. ECG Initial ECG Impression Date: April 06, 2020 Initial ECG Impression Time: 13:54 Comment Sinus rhythm with right bundle-branch block and left anterior fascicular block. Low voltage P waves. Left axis deviation. No evidence of ST elevation OK. Interpreted by me. Similar to previous of 10/30/19. Diagnostic Imaging Diagonstic Imaging: Xray Plain Films/CT/US/NM/MRI: chest Comments [facility]. [place], [place] NAME: VALDO KRUGER Maggie [facility] REC#: [id number] PT STATUS: REG ER : 1945 PHYSICIAN: FATIMAH SHARMA MD ADMIT DATE: 04/06/20/ER Signed Date of Exam:04/06/20 CHEST 1 VIEW, AP/PA ONLY INDICATION: Shortness of air, respiratory difficulty COMPARISON: 02/02/2020 TECHNIQUE: Single frontal radiograph of the chest dated 04/06/2020. FINDINGS: The cardiac silhouette is significantly enlarged. Mild central pulmonary vascular congestion. Developing and increasing small bibasilar pleural-parenchymal opacities with additional patchy opacities within the right midlung. Increasing prominence of the pulmonary interstitium. No pneumothorax. No acute osseous abnormality. IMPRESSION: Constellation of findings is suggestive of mild congestive heart failure/volume overload with associated small bibasilar pleural effusions and minimal interstitial edema. Dictated by: Dictated on workstation # [id number] Dict: 04/06/20 1447 Trans: 04/06/20 1522 [facility] [id number] Interpreted by: DAMIAN BOWSER MD Electronically signed by: DAMIAN BOWSER MD 04/06/20 1522 Departure Communication (Admissions) Time/Spoke to Admitting Phy: 15:45 Time/Spoke to Consulting Phy: 16:00 Impression Primary Impression: COPD with acute exacerbation Additional Impressions: Volume overload Qualified Codes: E87.70 - Fluid overload, unspecified Elevated troponin Disposition: ADMITTED INPATIENT Condition: Stable Admissions Decision to Admit Reason: Admit from ER (General) Decision to Admit/Date: April 06, 2020 Time/Decision to Admit Time: 15:45 Departure-Patient Inst. Referrals: GEM YEPEZ MD (PCP) Primary Care Physician FATIMAH SHARMA MD April 06, 2020 16:49
[2020-04-06 16:53] VITALS: BP 150/74
[2020-04-06] MEDS ORDERED: CATHETER FLUSH 10 ML SYR IV PRN (17:00)
--- OUTSIDE RECORDS SUMMARY | 2020-04-06 17:43 | XMS REPORT | Continuity of Care Document ---
Author Organization Unknown Address Unknown Phone Unavailable Allergies Active Description Code Type Severity Reaction Onset Reported/Identified Relationship to Patient Clinical Status Yes Sulfa (Sulfonamide Antibiotics) [id number] Drug Allergy Unknown N/A 019 Medications [...] V58.61 08/24/2015 Ot V58.83 09/17/2015 OSCAR KELLER [employer] Ot 278.00 09/17/2015 OSCAR KELLER [employer] Ot 401.9 09/17/2015 OSCAR KELLER [employer] Ot 496 09/17/2015 OSCAR KELLER [employer] Ot 780.54 09/17/2015 OSCAR KELLER [employer] Ot 786.09 09/24/2015 OSCAR KELLER [employer] Ot 278.00 09/24/2015 OSCAR KELLER [employer] Ot 401.9 09/24/2015 OSCAR KELLER [employer] Ot 496 09/24/2015 OSCAR KELLER [employer] Ot 780.54 09/24/2015 OSCAR KELLER [employer] Ot 786.09 10/31/2015 OSCAR KE[employer]ER [employer] Ot G47.10 HYPERSOMNIA, UNSPECIFIED 10/31/2015 OSCAR KELLER [employer] Ot I10 ESSENTIAL (PRIMARY) HYPERTENSION 10/31/2015 OSCAR KELLER [employer] Ot J44.9 CHRONIC OBSTRUCTIVE PULMONARY DISEASE, U 10/31/2015 OSCAR KE[employer]ER [employer] Ot R06.83 SNORING 07/09/2016 RUSTAM COSME DO [...] Ot K63. 5 POLYP OF COLON 07/19/2016 TATUM VAL SHINETT Ruth Ot Z12. 11 ENCOUNTER FOR SCREENING FOR MALIGNANT NE 05/14/2018 OSCAR KE[employer] Ot 278.00 OBESITY, NOS 05/14/2018 OSCAR KE[employer]ER [employer] Ot 401.9 HYPERTENSION NOS 05/14/2018 OSCAR KELLER [employer] Ot 496 CHR AIRWAY OBSTRUCT NEC 05/14/2018 OSCAR KELLER [employer] Ot 780.54 HYPERSOMNIA, UNSPECIFIED 05/14/2018 OSCAR KELLER [employer] Ot 786.09 RESPIRATORY ABNORM NEC 05/17/2018 JORI, BOBBY L [employer] Ot M79.89 OTHER SPECIFIED SOFT TISSUE DISORDERS 05/17/2018 JORI, BOBBY L [employer] Ot R06.00 DYSPNEA, UNSPECIFIED 05/17/2018 JORI, BOBBY L [employer] Ot S22.42XA MULTIPLE FRACTURES OF RIBS, LEFT SIDE, I 05/17/2018 JORI, BOBBY L [employer] Ot W19.XXXA UNSPECIFIED FALL, INITIAL ENCOUNTER 05/17/2018 JORI, BOBBY L [employer] Ot Z87.09 PERSONAL HISTORY OF OTHER DISEASES OF TH 05/17/2018 JORI, BOBBY L [employer] Ot 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 LEFT ARTIFICIAL KNEE JOINT 05/17/2018 JORI, BOBBY L [employer] Ot M79.89 OTHER SPECIFIED SOFT TISSUE DISORDERS 05/17/2018 JORI, BOBBY L [employer] Ot R06.00 DYSPNEA, UNSPECIFIED 05/17/2018 JORI, BOBBY L [employer] Ot R10 .9 UNSPECIFIED ABDOMINAL PAIN 05/17/2018 JORI, BOBBY L [employer] Ot S22.42XA MULTIPLE FRACTURES OF RIBS, LEFT SIDE, I 05/17/2018 JORI, BOBBY L [employer] Ot W19.XXXA UNSPECIFIED FALL, INITIAL ENCOUNTER 05/17/2018 JORI, BOBBY L [employer] Ot Z87.09 PERSONAL HISTORY OF OTHER DISEASES OF TH 05/17/2018 JORI, BOBBY L [employer] Ot 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 LEFT ARTIFICIAL KNEE JOINT 06/07/2018 JORI, BOBBY L [employer] Ot M79.89 OTHER SPECIFIED SOFT TISSUE DISORDERS 06/07/2018 JORI, BOBBY L [employer] Ot R06.00 DYSPNEA, UNSPECIFIED 06/07/2018 JORI, BOBBY L [employer] Ot R10 .9 UNSPECIFIED ABDOMINAL PAIN 06/07/2018 JORI, BOBBY L [employer] Ot S22.42XA MULTIPLE FRACTURES OF RIBS, LEFT SIDE, I 06/07/2018 JORI, BOBBY L [employer] Ot W19.XXXA UNSPECIFIED FALL, INITIAL ENCOUNTER 06/07/2018 JORI, BOBBY L [employer] Ot Z87.09 PERSONAL HISTORY OF OTHER DISEASES OF TH 06/07/2018 JORI, BOBBY L [employer] Ot 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 LEFT ARTIFICIAL KNEE JOINT 03/30/2019 OSCAR KELLER [employer] Ot 278.00 OBESITY, NOS 03/30/2019 OSCAR KELLER [employer] Ot 401.9 HYPERTENSION NOS 03/30/2019 OSCAR KELLER [employer] Ot 496 CHR AIRWAY OBSTRUCT NEC 03/30/2019 OSCAR KE[employer]ER [employer] Ot 780.54 HYPERSOMNIA, UNSPECIFIED 03/30/2019 TRACY KELLERINE E [employer] Ot 786.09 RESPIRATORY ABNORM NEC 03/30/2019 JORI, BOBBY L [employer] Ot M79.89 OTHER SPECIFIED SOFT TISSUE DISORDERS 03/30/2019 JORI, BOBBY L [employer] Ot R06.00 DYSPNEA, UNSPECIFIED 03/30/2019 JORI, BOBBY L [employer] Ot R10 .9 UNSPECIFIED ABDOMINAL PAIN 03/30/2019 JORI, BOBBY L [employer] Ot S22.42XA MULTIPLE FRACTURES OF RIBS, LEFT SIDE, I 03/30/2019 JORI, BOBBY L [employer] Ot W19.XXXA UNSPECIFIED FALL, INITIAL ENCOUNTER 03/30/2019 JORI, BOBBY L [employer] Ot Z87.09 PERSONAL HISTORY OF OTHER DISEASES OF TH 03/30/2019 JORI, BOBBY L [employer] Ot 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 LEFT ARTIFICIAL KNEE JOINT 03/30/2019 OSCAR KELLER [employer] Ot 278.00 OBESITY, NOS 03/30/2019 OSCAR KE[employer]ER [employer] Ot 401.9 HYPERTENSION NOS 03/30/2019 OSCAR KELLER [employer] Ot 496 CHR AIRWAY OBSTRUCT NEC 03/30/2019 OSCAR KE[employer]ER [employer] Ot 780.54 HYPERSOMNIA, UNSPECIFIED 03/30/2019 OSCAR KE[employer]ER [employer] Ot 786.09 RESPIRATORY ABNORM NEC 03/30/2019 JORI, BOBBY L [employer] Ot M79.89 OTHER SPECIFIED SOFT TISSUE DISORDERS 03/30/2019 JORI, BOBBY L [employer] Ot R06.00 DYSPNEA, UNSPECIFIED 03/30/2019 JORI, BOBBY L [employer] Ot R10 .9 UNSPECIFIED ABDOMINAL PAIN 03/30/2019 JORI, BOBBY L [employer] Ot S22.42XA MULTIPLE FRACTURES OF RIBS, LEFT SIDE, I 03/30/2019 JORI, BOBBY L [employer] Ot W19.XXXA UNSPECIFIED FALL, INITIAL ENCOUNTER 03/30/2019 JORI, BOBBY L [employer] Ot Z87.09 PERSONAL HISTORY OF OTHER DISEASES OF TH 03/30/2019 JORI, BOBBY L [employer] Ot 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 LEFT ARTIFICIAL KNEE JOINT 03/30/2019 TRACY KELLERINE E [employer] Ot 278.00 OBESITY, NOS 03/30/2019 OSCAR KE[employer]ER [employer] Ot 401.9 HYPERTENSION NOS 03/30/2019 TRACY KELLERINE E [employer] Ot 496 CHR AIRWAY OBSTRUCT NEC 03/30/2019 TRACY KELLERINE E [employer] Ot 780.54 HYPERSOMNIA, UNSPECIFIED 03/30/2019 TRACY KELLERINE E [employer] Ot 786.09 RESPIRATORY ABNORM NEC 03/30/2019 JORI, BOBBY L [employer] Ot M79.89 OTHER SPECIFIED SOFT TISSUE DISORDERS 03/30/2019 JORI, BOBBY L [employer] Ot R06.00 DYSPNEA, UNSPECIFIED 03/30/2019 JORI, BOBBY L [employer] Ot R10 .9 UNSPECIFIED ABDOMINAL PAIN 03/30/2019 JORI, BOBBY L [employer] Ot S22.42XA MULTIPLE FRACTURES OF RIBS, LEFT SIDE, I 03/30/2019 JORI, BOBBY L [employer] Ot W19.XXXA UNSPECIFIED FALL, INITIAL ENCOUNTER 03/30/2019 JORI, BOBBY L [employer] Ot Z87.09 PERSONAL HISTORY OF OTHER DISEASES OF 03/30/2019 JORI, BOBBY L [employer] Ot 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 LEFT ARTIFICIAL KNEE JOINT 03/30/2019 OSCAR KELLER [employer] Ot 278.00 OBESITY, NOS 03/30/2019 OSCAR KE[employer]ER [employer] Ot 401.9 HYPERTENSION NOS 03/30/2019 OSCAR KELLER [employer] Ot 496 CHR AIRWAY OBSTRUCT NEC 03/30/2019 OSCAR KELLER [employer] Ot 780.54 HYPERSOMNIA, UNSPECIFIED 03/30/2019 OSCAR KE[employer]ER [employer] Ot 786.09 RESPIRATORY ABNORM NEC 03/30/2019 JORI, BOBBY L [employer] Ot M79.89 OTHER SPECIFIED SOFT TISSUE DISORDERS 03/30/2019 JORI, BOBBY L [employer] Ot R06.00 DYSPNEA, UNSPECIFIED 03/30/2019 JORI, BOBBY L [employer] Ot R10 .9 UNSPECIFIED ABDOMINAL PAIN 03/30/2019 JORI, BOBBY L [employer] Ot S22.42XA MULTIPLE FRACTURES OF RIBS, LEFT SIDE, I 03/30/2019 JORI, BOBBY L [employer] Ot W19.XXXA UNSPECIFIED FALL, INITIAL ENCOUNTER 03/30/2019 JORI, BOBBY L [employer] Ot Z87.09 PERSONAL HISTORY OF OTHER DISEASES OF TH 03/30/2019 JORI, BOBBY L [employer] Ot 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 LEFT ARTIFICIAL KNEE JOINT 04/06/2019 OSCAR KELLER [employer] Ot 278.00 OBESITY, NOS 04/06/2019 TRACY KELLERINE E [employer] Ot 401.9 HYPERTENSION NOS 04/06/2019 TRACY KELLERINE E [employer] Ot 496 CHR AIRWAY OBSTRUCT NEC 04/06/2019 TRACY KELLERINE E [employer] Ot 780.54 HYPERSOMNIA, UNSPECIFIED 04/06/2019 TRACY KELLERINE E [employer] Ot 786.09 RESPIRATORY ABNORM NEC 04/06/2019 JORI, BOBBY L [employer] Ot M79.89 OTHER SPECIFIED SOFT TISSUE DISORDERS 04/06/2019 JORI, BOBBY L [employer] Ot R06.00 DYSPNEA, UNSPECIFIED 04/06/2019 JORI, BOBBY L [employer] Ot R10 .9 UNSPECIFIED ABDOMINAL PAIN 04/06/2019 JORI, BOBBY L [employer] Ot S22.42XA MULTIPLE FRACTURES OF RIBS, LEFT SIDE, I 04/06/2019 JORI, BOBBY L [employer] Ot W19.XXXA UNSPECIFIED FALL, INITIAL ENCOUNTER 04/06/2019 JORI, BOBBY L [employer] Ot Z87.09 PERSONAL HISTORY OF OTHER DISEASES OF 04/06/2019 JORI, BOBBY L [employer] Ot 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 LEFT ARTIFICIAL KNEE JOINT 04/06/2019 OSCAR KELLER E [employer] Ot 278.00 OBESITY, NOS 04/06/2019 TRACY KELLERINE E [employer] Ot 401.9 HYPERTENSION NOS 04/06/2019 OSCAR KELLER [employer] Ot 496 CHR AIRWAY OBSTRUCT NEC 04/06/2019 TRACY KELLERINE E [employer] Ot 780.54 HYPERSOMNIA, UNSPECIFIED 04/06/2019 TRACY KELLERINE E [employer] Ot 786.09 RESPIRATORY ABNORM NEC 04/06/2019 JORI, BOBBY L [employer] Ot M79.89 OTHER SPECIFIED SOFT TISSUE DISORDERS 04/06/2019 JORI, BOBBY L [employer] Ot R06.00 DYSPNEA, UNSPECIFIED 04/06/2019 JORI, BOBBY L [employer] Ot R10 .9 UNSPECIFIED ABDOMINAL PAIN 04/06/2019 JORI, BOBBY L [employer] Ot S22.42XA MULTIPLE FRACTURES OF RIBS, LEFT [...] Ot R55 SYNCOPE AND COLLAPSE 06/13/2019 SHANTI DEGAR, BENJAMIN Lozano Ot G47.33 OBSTRUCTIVE SLEEP APNEA [...] HISTORY OF NICOTINE DEPENDENCE 06/14/2019 OSCAR KE[employer]ER [employer] Ot 278.00 OBESITY, NOS 06/14/2019 OSCAR KE[employer]ER [employer] Ot 401.9 HYPERTENSION NOS 06/14/2019 OSCAR KELLER [employer] Ot 496 CHR AIRWAY OBSTRUCT NEC 06/14/2019 OSCAR KELLER [employer] Ot 780.54 HYPERSOMNIA, UNSPECIFIED 06/14/2019 OSCAR KE[employer]ER [employer] Ot 786.09 RESPIRATORY ABNORM NEC 06/14/2019 BOBBY HSIEH [employer] Ot M79.89 OTHER SPECIFIED SOFT TISSUE DISORDERS 06/14/2019 JORI, BOBBY L [employer] Ot R06.00 DYSPNEA, UNSPECIFIED 06/14/2019 JORI, BOBBY Serrano [employer] Ot R10 .9 UNSPECIFIED ABDOMINAL PAIN 06/14/2019 JORI, BOBBY Serrano [employer] Ot S22.42XA MULTIPLE FRACTURES OF RIBS, LEFT SIDE, I 06/14/2019 BOBBY HSIEH [employer] Ot W19.XXXA UNSPECIFIED FALL, INITIAL ENCOUNTER 06/14/2019 BOBBY HSIEH [employer] Ot Z87.09 PERSONAL HISTORY OF OTHER DISEASES OF TH 06/14/2019 JORIBOBBY CABELLO [employer] Ot 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 LEFT ARTIFICIAL KNEE [...] .9 CHEST PAIN, UNSPECIFIED 08/23/2019 OSCAR KELLER [employer] Ot 278.00 OBESITY, NOS 08/23/2019 OSCAR KELLER [employer] Ot 401.9 HYPERTENSION NOS 08/23/2019 OSCAR KELLER [employer] Ot 496 CHR AIRWAY OBSTRUCT NEC 08/23/2019 OSCAR KELLER [employer] Ot 780.54 HYPERSOMNIA, UNSPECIFIED 08/23/2019 OSCAR KE[employer]ER [employer] Ot 786.09 RESPIRATORY ABNORM NEC 08/23/2019 JORI, BOBBY L [employer] Ot M79.89 OTHER SPECIFIED SOFT TISSUE DISORDERS 08/23/2019 JORI, BOBBY L [employer] Ot R06.00 DYSPNEA, UNSPECIFIED 08/23/2019 JORI, BOBBY L [employer] Ot R10 .9 UNSPECIFIED ABDOMINAL PAIN 08/23/2019 JORI, BOBBY L [employer] Ot S22.42XA MULTIPLE FRACTURES OF RIBS, LEFT SIDE, I 08/23/2019 JORI, BOBBY L [employer] Ot W19.XXXA UNSPECIFIED FALL, INITIAL ENCOUNTER 08/23/2019 JORI, BOBBY L [employer] Ot Z87.09 PERSONAL HISTORY OF OTHER DISEASES OF TH 08/23/2019 JORI, BOBBY L [employer] Ot 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 LEFT ARTIFICIAL KNEE [...] Ot G47.10 HYPERSOMNIA, UNSPECIFIED 08/23/2019 OSCAR KELLER [employer] Ot J43.9 EMPHYSEMA, UNSPECIFIED 08/23/2019 ARIANNAOSCAR WALKER [employer] Ot G47.10 HYPERSOMNIA, UNSPECIFIED 08/24/2019 OSCAR KELLER [employer] Ot G47.10 HYPERSOMNIA, UNSPECIFIED 08/24/2019 OSCAR KE[employer]ER [employer] Ot G47.36 SLEEP RELATED HYPOVENTILATION IN CONDITI 08/24/2019 OSC[employer] KE[employer]ER [employer] Ot G47.50 PARASOMNIA, UNSPECIFIED 09/07/2019 Marta HERNANDEZ [...] Ot I25. 10 ATHSCL HEART DISEASE OF [place] CORONARY 10/06/2019 PATRICIA REID MD Ot I48. [...] Ot I25. 10 ATHSCL HEART DISEASE OF [place] CORONARY 11/01/2019 ISAI AVILA MD Ot I48. 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 1 CHRONIC OBSTRUCTIVE PULMONARY DISEASE W 12/21/2019 PATRICIA REID MD Ot J44. 1 CHRONIC OBSTRUCTIVE PULMONARY DISEASE W 12/26/2019 OSCAR KE[employer]ER [employer] Ot G47.10 HYPERSOMNIA, UNSPECIFIED 12/26/2019 OSCAR KE[employer]ER [employer] Ot G47.36 SLEEP RELATED HYPOVENTILATION IN CONDITI 12/26/2019 OSCAR KELLER [employer] Ot G47.50 PARASOMNIA, UNSPECIFIED 12/26/2019 OSCAR KE[employer]ER [employer] Ot J43.9 EMPHYSEMA, UNSPECIFIED 12/26/2019 OSCAR KE[employer]ER [employer] Ot J90 PLEURAL EFFUSION, NOT ELSEWHERE CLASSIFI 12/26/2019 OSCAR KE[employer]ER [employer] Ot R91.8 OTHER NONSPECIFIC ABNORMAL FINDING OF JD 02/03/2020 OSCAR KELLER [employer] Ot J43.9 EMPHYSEMA, UNSPECIFIED 02/03/2020 OSCAR KE[employer]ER [employer] Ot J90 PLEURAL EFFUSION, NOT ELSEWHERE CLASSIFI 02/03/2020 ARIANNA, OSCAR E [employer] Ot J96.91 RESPIRATORY FAILURE, UNSPECIFIED WITH HY 02/03/2020 ARIANNA, OSCAR E [employer] Ot R06.00 DYSPNEA, UNSPECIFIED 02/03/2020 ARIANNA, OSCAR E [employer] Ot R09.02 HYPOXEMIA 02/03/2020 ARIANNA, OSCAR E [employer] Ot W07.XXXD FALL FROM CHAIR, SUBSEQUENT ENCOUNTER 02/07/2020 FRANKLIN EDGAR, PATRICIA Lozano Ot J44. 1 CHRONIC OBSTRUCTIVE PULMONARY DISEASE W 02/08/2020 ARIANNA, OSCAR E [employer] Ot J43.9 EMPHYSEMA, UNSPECIFIED 02/08/2020 ARIANNA, OSCAR E [employer] Ot J90 PLEURAL EFFUSION, NOT ELSEWHERE CLASSIFI 02/08/2020 ARIANNA, OSCAR E [employer] Ot J96.91 RESPIRATORY FAILURE, UNSPECIFIED WITH HY 02/08/2020 ARIANNA, OSCAR E [employer] Ot R06.00 DYSPNEA, UNSPECIFIED 02/08/2020 ARIANNA, OSCAR E [employer]BER Ot R09.02 HYPOXEMIA 02/08/2020 ARIANNA, OSCAR E [employer] Ot W07.XXXD FALL FROM CHAIR, SUBSEQUENT ENCOUNTER 02/08/2020 FRANKLIN EDGAR, PATRICIA Lozano Ot J44. 1 CHRONIC OBSTRUCTIVE PULMONARY DISEASE W 02/22/2020 ARIANNA, OSCAR E [employer] Ot J43.9 EMPHYSEMA, UNSPECIFIED 02/22/2020 ARIANNA, OSCAR E [employer]BER Ot J90 PLEURAL EFFUSION, NOT ELSEWHERE CLASSIFI 02/22/2020 ARIANNA, OSCAR E [employer]BER Ot J96.91 RESPIRATORY FAILURE, UNSPECIFIED WITH HY 02/22/2020 ARIANNA, OSCAR E [employer]BER Ot R06.00 DYSPNEA, UNSPECIFIED 02/22/2020 ARIANNA, OSCAR E [employer] Ot R09.02 HYPOXEMIA 02/22/2020 ARIANNA, OSCAR E [employer] Ot W07.XXXD FALL FROM CHAIR, SUBSEQUENT ENCOUNTER 03/02/2020 MICHAEL TAYLOR [employer] Ot M25.461 EFFUSION, RIGHT KNEE 03/02/2020 MICHAEL TAYLOR [employer] Ot M25.561 PAIN IN RIGHT KNEE 03/02/2020 MICHAEL TAYLOR [employer] Ot Z96.651 PRESENCE OF RIGHT ARTIFICIAL KNEE JOINT 03/05/2020 MICHAEL TAYLOR [employer] Ot M25.461 EFFUSION, RIGHT KNEE 03/05/2020 CLAUDIA MICHAEL R [employer] Ot M25.561 PAIN IN RIGHT KNEE 03/05/2020 CLAUDIA MICHAEL R [employer] Ot Z96.651 PRESENCE OF RIGHT ARTIFICIAL KNEE JOINT 03/05/2020 CLAUDIA MICHAEL R [employer]BER Ot M25.461 EFFUSION, RIGHT KNEE 03/05/2020 CLAUDIA MICHAEL R [employer]BER Ot M25.561 PAIN IN RIGHT KNEE 03/05/2020 CLAUDIA MICHAEL R [employer] Ot Z96.651 PRESENCE OF RIGHT ARTIFICIAL KNEE JOINT 03/06/2020 CLAUDIA MICHAEL R [employer]BER Ot M25.461 EFFUSION, RIGHT KNEE 03/06/2020 CLAUDIA, MICHAEL R [employer] Ot M25.561 PAIN IN RIGHT KNEE 03/06/2020 CLAUDIA, MICHAEL R [employer] Ot Z96.651 PRESENCE OF RIGHT ARTIFICIAL KNEE JOINT 03/21/2020 CLAUDIA, MICHAEL R [employer]BER Ot M25.461 EFFUSION, RIGHT KNEE 03/21/2020 CLAUDIA MICHAEL R [employer] Ot M25.561 PAIN IN RIGHT KNEE 03/21/2020 CLAUDIA MICHAEL R [employer] Ot Z96.651 PRESENCE OF RIGHT ARTIFICIAL KNEE JOINT Procedures Code Description Performed By Per formed On [id number] RE STORATION OF CARDIAC RHYTHM, SINGLE 08/15/2019 [id number] ME ASURE OF CARDIAC SAMPL PRESSURE, L H 10/04/2019 [id number] ME ASUREMENT OF ARTERIAL PRESSURE, MCGRATH 10/04/2019 [id number] FL UOROSCOPY OF MULT COR ART USING [...] mg/dL 5-40 Automated blood complete blood count (he mogram) panel - 10/06/19 05:52 Blood leukocytes [...] 10/30/19 05:58 FREE TEXT EXTERNAL SEE COMMENTS NR QUANTITY OF GROWTH Isolated [facility] Bacterial blood culture [id number] [facility] Influenza virus A and B antigen detectio [...] OF GROWTH Isolated [facility] Bacterial blood culture [id number] [facility] Serum or plasma troponin i.cardiac measu [...] blood nucleated erythrocytes/100 leukocytes ratio 1 [facility] Complete blood count (CBC) with automate d white blood cell (WBC) differential - 04/06/20 14:13 Blood leukocytes automated count (number/volume) 8.7 10*3/uL 4.3-11.0 Blood erythrocytes automated count (number/volume) 2.92 10*6/uL 4.35-5.85 Venous blood hemoglobin measurement (mass/volume) 8.2 g/dL 13.3-17.7 Blood hematocrit (volume fraction) 27 % 40-54 Automated erythrocyte mean corpuscular volume 92 [ foz_us] 80-99 Automated erythrocyte mean corpuscular h emoglobin (mass per erythrocyte) 28 pg 25-34 Automated erythrocyte mean corpuscular h emoglobin concentration measurement (mass/volume) 31 g/dL 32-36 Automated erythrocyte distribution width ratio 16. 9 % 10.0- 14.5 Automated blood platelet count (count/volume) 366 10*3/uL 130-400 Automated blood platelet mean volume measurement 9.8 [foz_us] 7.4-10.4 Automated blood neutrophils/100 leukocytes 82 % 42-75 Automated blood lymphocytes/100 leukocytes 7 % 12-44 Blood monocytes/100 leukocytes 9 % 0-12 Automated blood eosinophils/100 leukocytes 1 % 0-10 Automated blood basophils/100 leukocytes 1 % 0-10 Blood neutrophils automated count (number/volume) 7.2 10*3 1.8-7.8 Blood lymphocytes automated count (number/volume) 0.6 10*3 1.0-4.0 Blood monocytes automated count (number/volume) 0. 8 10*3 0.0-1.0 Automated eosinophil count 0.1 10*3/uL 0 .0-0.3 Automated blood basophil count (count/volume) 0.1 10*3/uL 0.0-0.1 Comprehensive metabolic panel - 04/06/20 14:13 Serum or plasma sodium measurement (moles/volume) 138 mmol/L 135-145 Serum or plasma potassium measurement (moles/volume) 4.5 mmol/L 3.6-5.0 Serum or plasma chloride measurement (moles/volume) 103 mmol/L 98-107 Carbon dioxide 24 mmol/L 21-32 Serum or plasma anion gap determination (moles/volume) 11 mmol/L 5-14 Serum or plasma urea nitrogen measurement (mass/volume ) 17 mg/dL 7-18 Serum or plasma creatinine measurement (mass/volume) 1.24 mg/dL 0.60-1.30 Serum or plasma urea nitrogen/creatinine mass ratio 14 NRG Serum or plasma creatinine measurement w ith calculation of estimated glomerular filtration rate 57 NRG Serum or plasma glucose measurement (mass/volume) 81 mg/dL 70-105 Serum or plasma calcium measurement (mass/volume) 8.3 mg/dL 8.5-10.1 Serum or plasma total bilirubin measurement (mass/volu me) 0.5 mg/dL 0.1-1.0 Serum or plasma alkaline phosphatase deana surement (enzymatic activity/volume) 66 U/L 40-136 Serum or plasma aspartate aminotransfera se measurement (enzymatic activity/volume) 17 U/L 5-34 Serum or plasma alanine aminotransferase measurement (enzymatic activity/volume) 14 U/L 0-55 Serum or plasma protein measurement (mass/volume) 6.7 g/dL 6.4-8.2 Serum or plasma albumin measurement (mass/volume) 3.6 g/dL 3.2-4.5 CALCIUM CORRECTED 8.6 mg/dL 8.5-10.1 Serum or plasma troponin i.cardiac measu rement (mass/volume) - 04/06/20 14:13 Serum or plasma troponin i.cardiac measurement (mass/v olume) 0.037 ng/mL <0.028 Manual absolute plasma cell count - 07/19 14:13 Blood monocytes/100 leukocytes 5 % NRG Manual blood segmented neutrophils/100 leukocytes 85 % NRG Blood band neutrophils/100 leukocytes 0 % NRG Manual blood lymphocytes/100 leukocytes 8 % NRG Manual eosinophils/100 leukocytes in nose 2 % NRG Manual blood basophils/100 leukocytes 0 % NRG Blood anisocytosis detection by light microscopy S LIGHT NRG Serum or plasma C reactive protein measu rement (mass/volume) - 04/06/20 14:13 Serum or plasma C reactive protein measurement (mass/v olume) 5.29 mg/dL 0.00-0.50 Serum or plasma lithium measurement (mol es/volume) - 04/06/20 14:13 BNP PT 551.8 pg/mL <100.0 PT panel in platelet poor plasma by coag ulation assay - 04/06/20 14:13 Prothrombin time (PT) in platelet poor plasma by coagu lation assay 19.5 s 12.2-14.7 INR in platelet poor plasma or blood by coagulation as say 1.6 0.8-1.4 Activated partial thromboplastin time (a PTT) in platelet poor plasma bycoagulation assay - 04/06/20 14:13 Activated partial thromboplastin time (a PTT) in platelet poor plasma bycoagulation assay 50 s 24-35 Blood lactic acid measurement (moles/vol ume) - 04/06/20 14:30 Blood lactic acid measurement (moles/volume) 1.71 mmol/L 0.50-2.00 Complete urinalysis with reflex to cultu re - 04/06/20 15:57 Urine color determination YELLOW NRG Urine clarity [...] leukocyte count by microscopy (number/high power field) RARE NRG Bacteria detection in urine sediment by light microsco py TRACE NRG Squamous epithelial cells detection in u rine sediment by light microscopy NONE NRG Crystals detection in urine sediment by light microsco py NONE NRG Casts detection in urine sediment by light microscopy PRESENT NRG Mucus detection in urine sediment by light microscopy SMALL NRG Complete urinalysis with reflex to culture NO NRG Hyaline casts detection in urine sediment by light tang roscopy 5-10 NRG Encounters ACCT No. Visit Date/Time Discharge Status Pt. Type Provider Facility Loc./Unit Complaint [id number] 03/01/2020 15:14:00 23:59:59 CLS Outpatient MICHAEL TAYLOR APRN [facility] RAD RT KNEE PAIN [id number] 11/09/2019 10:31:00 00:01:00 DIS Outpatient PATRICIA REID MD [facility] PULM COPD [id number] 02/02/2020 11:26:00 23:59:59 CLS Outpatient OSCAR KELLER APRN [facility] RAD HYPOXEMIA [id number] 12/02/2019 12:35:00 23:59:59 CLS Outpatient OSCAR KELLER [employer] [facility] RAD COPD,EXCESSIVE SLEEPINESS,EMPHYSEMA [id number] 11/03/2019 07:55:00 09:45:00 DIS Outpatient Marta HERNANDEZ MD [facility] CATH PAF [id number] 11/02/2019 09:30:00 23:59:59 CLS Preadmit OSCAR KELLER [employer] [facility] PULM DYSPNEA,EXCESSI VE SLEEPINESS,COPD [id number] 10/30/2019 07:12:00 14:10:00 DIS Inpatient MARGARITA EDGAR, ISAI Mahoney [facility] 4TH ACUTE RESP FAILURE WITH HYPOXIA,COPD EXACERBATION [id number] 08/03/2019 09:36:00 00:01:00 DIS Outpatient OSCAR KELLER APRN [facility] PULM DYSPNEA,EXCESSI VE SLEEPINESS,COPD [id number] 10/04/2019 10:42:00 15:50:00 DIS Inpatient PATRICIA REID MD [facility] 4TH CHF EXACERBATION;COPD;C HEST PAIN [id number] 09/09/2019 13:43:00 23:59:59 CLS Preadmit OSCAR KELLER APRN [facility] RAD COPD [id number] 08/23/2019 19:43:00 06:10:00 DIS Outpatient OSCAR KELLER APRN [facility] SLEEP DYSPNEA,EXCESSI VE SLEEPINESS [id number] 08/22/2019 09:01:00 23:59:59 CLS Outpatient OSCAR KELLER APRN [facility] RAD DYSPNEA,EXCESSI VE SLEEPINESS [id number] 08/18/2019 07:39:00 23:59:59 CLS Outpatient Marta HERNANDEZ MD [facility] CARD CHEST PAIN [id number] 08/15/2019 13:48:00 14:17:00 DIS Inpatient ISAI AVILA MD [facility] ICU CHF, ATRIAL FIB, COPD [id number] 07/06/2019 00:12:00 23:59:59 CLS Preadmit Marta HERNANDEZ MD [facility] CARD DIZZINESS [id number] 04/06/2019 13:36:00 00:01:00 DIS Outpatient Marta HERNANDEZ MD [facility] CARD DIZZINESS [id number] 06/12/2019 07:30:00 17:08:00 DIS Inpatient BENJAMIN MOSER MD [facility] 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 [id number] 04/06/2019 13:30:00 23:59:59 CLS Outpatient Marta HERNANDEZ MD [facility] CARD DIZZINESS [id number] 03/30/2019 10:34:00 23:59:59 CLS Preadmit Marta HERNANDEZ MD [facility] CARD DIZZINESS,NEAR SYNCOPE [id number] 05/14/2018 08:55:00 23:59:59 CLS Outpatient BOBBY HSIEH APRN [facility] RAD R06.00 [id number] 07/11/2016 09:21:00 13:40:00 DIS Outpatient RUSTAM COSME DO [facility] SDC SCREENING [id number] 07/09/2016 05:44:00 11:21:00 DIS Outpatient RUSTAM COSME DO [facility] PREOP SCREENING [id number] 10/31/2015 11:16:00 11:37:00 DIS Outpatient OSCAR KELLER APRN [facility] SLEEP SNORING, UMESH G IN SLEEP, EDS, HPN [id number] 08/24/2015 12:48:00 23:59:59 CLS Outpatient OSCAR KELLER APRN [facility] RT COPD [id number] 04/06/2020 15:51:[address] Inpatient PATRICIA REID MD [facility] 4TH ACUTE COPD,ACUTE HF,ELEVATED TROPONIN [id number] 08/24/2015 12:47:00 Document Registration [id number] 08/24/2015 12:47:00 Document Registration [id number] 08/24/2015 12:47:00 Document Registration [id number] 10/30/2011 12:45:00 Document Registration [id number] 10/27/2011 13:30:00 Document Registration [id number] 05/15/2011 12:43:00 Document Registration [id number] 04/17/2011 15:28:00 Document Registration
[2020-04-06 19:10] VITALS: BP 116/68
--- NOTE | 2020-04-06 19:19 | NUR ---
VALDO KRUGER admitted to room 405-1, with an admitting diagnosis of CHF, on 04/06/20 from ER via wheel chair , accompanied by staff .VALDO KRUGER introduced to surroundings, call light, bed controls, phone, TV, temperature control, lights, meal times, smoking policy, visitor policy, side rail policy, bathrooms and showers. Patient Rights given to patient in the handbook. VALDO KRUGER verbalizes understanding that [facility] is not responsible for the loss or damage to any personal effects or valuables that are kept in the patients posession during their hospitalization. The following Patient Care Plans and discharge were discussed with the patient. VALDO KRUGER verbalizes understanding of Interdisciplinary Patient Education. Patient and family were informed about the Rapid Response Team and its purpose.
--- NOTE | 2020-04-06 19:27 | NUR ---
Christiano Q4 and PRN, RT to asses or re-evaluate in 72 hours or as needed. O2 to kepp Sat greater than 90% Addendum: 04/06/20 at 1927 by RUDOLPH VENCES RT Amended: Links added.
[2020-04-06] MEDS ORDERED: RT-ALBUTEROL/IPRATROPIUM 3 ML (DUONEB) VIAL INH PRN (19:30)
[2020-04-06 19:46] VITALS: BP 137/68
--- NOTE | 2020-04-06 19:48 | NUR ---
DR. GUTIERREZ IN TO SEE PT AT THIS TIME.
--- NOTE | 2020-04-06 19:49 | Consultation-Cardiology ---
HPI-Cardiology Cardiology Consultation: Date of Consultation 04/06/20 Time Seen by a Provider: 19:30 Date of Admission Attending Physician Patricia Higginbotham MD Admitting Physician Wilfredo Blair MD Consulting Physician JAYSON GUTIERREZ MD, MA, FACP, FACC, FSCAI, CCDS Primary supervisor cutting department: Dr Molina HPI: Chief Complaint: CC: Shortness of breath HPI 74 yo man with several weeks of increasing shortness of breath and bilat leg swelling. No cp or palp or syncope. No fever or chills. Gen malaise and weakness. No focal weakness Review of Systems-Cardiology Review of Systems Constitutional: As described under HPI Eyes: No vision change Ears/Nose/Throat: No ear discharge, No nasal drainage, No recent hearing loss Respiratory: As described under HPI Cardiovascular: As described under HPI Gastrointestinal: No diarrhea, No nausea, No vomiting Genitourinary: No dysuria, No hematuria, No urine frequency changes Musculoskeletal: back pain (chronic) Skin: No rash, No ulcerations Psychiatric/Neurological: No seizure, No focal weakness, No syncope Hematologic: No bleeding abnormalities All Other Systems Reviewed Negative Unless Noted: Yes QLA-Thdqoq-Xdzvco Hx Patient Social History Alcohol Use: Rarely Uses Recreational Drug Use: No Drug of Choice: THC ON A REGULAR BASIS, SINCE THE 1959'S Smoking Status: Former Smoker Type Used: Cigarettes 2nd Hand Smoke Exposure: No Recent Foreign Travel: No Recent Infectious Disease Expo: No Hospitalization with Isolation: Denies Physical Abuse Screen: No Sexual Abuse: No Immunizations Up To Date Tetanus Booster (TDap): Unknown Date of Pneumonia Vaccine: Aug 30, 2019 Date of Influenza Vaccine: Aug 30, 2019 Past Medical History PMH As described under Assessment. Family Medical History Family History: Asbestosis FH: CABG (coronary artery bypass surgery) 19 FATHER FH: breast cancer 19 MOTHER FH: uterine cancer 19 MOTHER Hypertension 19 FATHER Allergies and Home Medications Allergies Coded Allergies: Sulfa (Sulfonamide Antibiotics) (Verified Allergy, Unknown, 10/04/19) Home Medications Acetaminophen 500 Mg Tablet, 1,000 MG PO Q4H PRN for PAIN-MILD, (Reported) Albuterol Sulfate 8.5 Gm Hfa.aer.ad, 1-2 PUFF IH Q4H PRN for WHEEZING, (Reported) Albuterol Sulfate 2.5 Mg/0.5 Ml Vial.neb, 2.5 MG NEB Q4H PRN for SHORTNESS OF BREATH, (Reported) Amiodarone HCl 200 Mg Tablet, 200 MG PO BID, (Reported) Amlodipine Besylate 10 Mg Tablet, 10 MG PO DAILY, (Reported) Apixaban 5 Mg Tablet, 5 MG PO BID, (Reported) Diltiazem HCl 120 Mg Cap.er.24h, 120 MG PO DAILY, (Reported) Enalapril Maleate 20 Mg Tablet, 20 MG PO DAILY, (Reported) Furosemide 80 Mg Tablet, 80 MG PO DAILY Prescribed by: PATRICIA HIGGINBOTHAM on 10/06/19 0954 Hydrocodone Bit/Acetaminophen 1 Each Tablet, 1 TAB PO Q4H PRN for PAIN-MODERATE, (Reported) Metoprolol Tartrate 100 Mg Tablet, 100 MG PO BID, (Reported) Potassium Chloride 10 Meq Tablet.er, 10 MEQ PO DAILY Prescribed by: PATRICIA HIGGINBOTHAM on 10/06/19 0953 Prednisone 10 Mg Tab.ds.pk, 10 MG PO DAILY Take 6 tabs(60mg)daily,decrease by 1 tab(10MG)daily. Prescribed by: PATRICIA HIGGINBOTHAM on 11/01/19 1120 Patient Home Medication List Home Medication List Reviewed: Yes Physical Exam-Cardiology Physical Exam Vital Signs/I&O 04/06/20 04/06/20 04/06/20 04/06/20 13:50 13:50 16:12 16:40 Temp 36.4 36.6 Pulse 51 49 Resp 25 20 B/P (MAP) 127/62 (83) 116/68 Pulse Ox 98 98 91 95 O2 Delivery Nasal Cannula Nasal Cannula Nasal Cannula Nasal Cannula O2 Flow Rate 4.00 4.00 2.00 2.00 04/06/20 04/06/20 04/06/20 04/06/20 16:53 17:22 17:44 19:00 Temp 36.4 Pulse 56 58 54 Resp 22 B/P (MAP) 150/74 Pulse Ox 94 O2 Delivery Nasal Cannula Nasal Cannula O2 Flow Rate 3.00 3.00 04/06/20 19:10 Temp 36.4 Pulse 51 Pulse Ox 98 FiO2 36 Capillary Refill : Less Than 3 Seconds Constitutional: AAO x 3, well-developed, well-nourished HEENT: EOMI, hearing is well preserved; No xanthelasmas are seen Neck: carotid pulses are 2 + bilaterally Respiratory: other (diminished bs at bases, prolonged exp, scattered rhonchi) Cardiovascular: regular rate-rhythm, S1 and S2, systolic murmur (soft JULIUS at ca rd base) Gastrointestinal: No tender; soft; No guarding, No rebound Extremities: No clubbing, No cyanosis; significant edema (bilat, pitting edema of the legs) Neurologic/Psychiatric: oriented x 3, other (moves all limbs equally) Skin: normal color, warm/dry Data Review Labs Laboratory Tests 04/06/20 14:13: White Blood Count 8.7, Red Blood Count 2.92L, Hemoglobin 8.2L, Hematocrit 27L, Mean Corpuscular Volume 92, Mean Corpuscular Hemoglobin 28, Mean Corpuscular Hemoglobin Concent 31L, Red Cell Distribution Width 16.9H, Platelet Count 366, Mean Platelet Volume 9.8, Neutrophils (%) (Auto) 82H, Lymphocytes (%) (Auto) 7L, Monocytes (%) (Auto) 9, Eosinophils (%) (Auto) 1, Basophils (%) (Auto) 1, Neutrophils # (Auto) 7.2, Lymphocytes # (Auto) 0.6L, Monocytes # (Auto) 0.8, Eosinophils # (Auto) 0.1, Basophils # (Auto) 0.1, Neutrophils % (Manual) 85, Lymphocytes % (Manual) 8, Monocytes % (Manual) 5, Eosinophils % (Manual) 2, Basophils % (Manual) 0, Band Neutrophils 0, Anisocytosis SLIGHT, Prothrombin Time 19.5H, INR Comment 1.6H, Activated Partial Thromboplast Time 50H, Sodium Level 138, Potassium Level 4.5, Chloride Level 103, Carbon Dioxide Level 24, Anion Gap 11, Blood Urea Nitrogen 17, Creatinine 1.24, Estimat Glomerular Filtration Rate 57, BUN/Creatinine Ratio 14, Glucose Level 81, Calcium Level 8.3L, Corrected Calcium 8.6, Total Bilirubin 0.5, Aspartate Amino Transf (AST/SGOT) 17, Alanine Aminotransferase (ALT/SGPT) 14, Alkaline Phosphatase 66, Troponin I 0.037H, C-Reactive Protein High Sensitivity 5.29H, B-Type Natriuretic Peptide 551.8H, Total Protein 6.7, Albumin 3.6 04/06/20 14:30: Lactic Acid Level 1.71 04/06/20 15:57: Urine Color YELLOW, Urine Clarity CLEAR, Urine pH 6.0, Urine Specific [place] 1.020, Urine Protein NEGATIVE, Urine Glucose (UA) NEGATIVE, Urine Ketones NEGATIVE, Urine Nitrite NEGATIVE, Urine Bilirubin NEGATIVE, Urine Urobilinogen 0.2, Urine Leukocyte Esterase NEGATIVE, Urine RBC (Auto) NEGATIVE, Urine RBC NONE, Urine WBC RARE, Urine Squamous Epithelial Cells NONE, Urine Crystals NONE, Urine Bacteria TRACE, Urine Casts PRESENT, Urine Hyaline Casts 5-10H, Urine Mucus SMALLH, Urine Culture Indicated NO A/P-Cardiology Assessment/Admission Diagnosis Ac on chronic diastolic CHF Minimal troponin elevation, type 2 [place], likely due to CHF Anemia of undetermined etiology PAF, s/p cardioversion on 08/15/2019. 30 day MCOT completed on 05/05/2019 which showed low-grade ectopy. 1 refill episode of nonsustained VT for 5 beats. PSVT for 7 beats. Brief episodes of possible atrial fibrillation. On Amiodarone and Eliquis. Cardizem. ILR is recommended. Echocardiogram done on 10/04/2019 showed mild concentric LVH with an EF of 55-65 percent. Moderate to severe diastolic dysfunction. Severely dilated left atrium. Lttg-bd-duhflrdb aortic regurgitation. Moderate tricuspid regurgitation. PA pressure of 53 mmHg. Hypertension PVCs, by history COPD - oxygen dependent Mild to moderate CAD. Left heart catheterization was done on 10/04/2019 which showed mild to moderate proximal LAD disease. FFR was done which was 0.85. PCI was deferred. Discussion and Recomendations * Diuretics for CHF * Eval anemia. If no active bleeding, then resume Eliquis for stroke prophylaxis * Monitor labs * Further recs based on hosp course Clinical Quality Measures DVT/VTE Risk/Contraindication: Risk Factor Score Per Nursin RFS Level Per Nursing on Admit: 3=High JAYSON GUTIERREZ MD [facility] CCD[facility] April 06, 2020 19:49
[2020-04-06] MEDS: FUROSEMIDE 40 MG/4 ML INJ (LASIX) IV SCH (21:06)
[2020-04-06] MEDS: methylPREDNISolone 40 MG/ML (Solu-MEDROL) VIAL IV SCH (21:06)
[2020-04-06] MEDS: CATHETER FLUSH 10 ML SYR IV SCH (21:06)
[2020-04-06] MEDS: RT-ALBUTEROL/IPRATROPIUM 3 ML (DUONEB) VIAL INH SCH (22:08)
[2020-04-07] VITALS (7 sets, daily range): BP systolic 120–140; BP diastolic 55–72
[2020-04-07] MEDS: RT-ALBUTEROL/IPRATROPIUM 3 ML (DUONEB) VIAL INH SCH ×6 (02:19→22:27)
[2020-04-07] MEDS: methylPREDNISolone 40 MG/ML (Solu-MEDROL) VIAL IV SCH ×2 (04:31→09:05)
[2020-04-07] MEDS: CATHETER FLUSH 10 ML SYR IV SCH ×3 (04:32→22:00)
[2020-04-07 05:30] LABS: BASOPHILS % (AUTO) 0 % (0-10); EOSINOPHILS % (AUTO) 0 % (0-10); HEMATOCRIT 27 % (40-54); HEMOGLOBIN 8.2 G/DL (13.3-17.7); LYMPHOCYTES # (AUTO) 0.2 X 10^3 (1.0-4.0); LYMPHOCYTES % (AUTO) 5 % (12-44); MEAN CORPUSCULAR HEMOGLOBIN 28 PG (25-34); MEAN CORPUSCULAR HGB CONC 31 G/DL (32-36); MEAN CORPUSCULAR VOLUME 91 FL (80-99); MEAN PLATELET VOLUME 10.6 FL (7.4-10.4); MONOCYTES % (AUTO) 1 % (0-12); NEUTROPHILS # (AUTO) 4.1 X 10^3 (1.8-7.8); NEUTROPHILS % (AUTO) 94 % (42-75); PLATELET COUNT 333 10^3/uL (130-400); RED CELL DISTRIBUTION WIDTH 16.4 % (10.0-14.5); WHITE BLOOD COUNT 4.3 10^3/uL (4.3-11.0)
[2020-04-07 05:55] LABS: ALBUMIN 3.6 GM/DL (3.2-4.5); BILIRUBIN,TOTAL 0.6 MG/DL (0.1-1.0); CALCIUM 8.4 MG/DL (8.5-10.1); CREATININE SERUM 1.24 MG/DL (0.60-1.30); POTASSIUM 4.3 MMOL/L (3.6-5.0); TOTAL PROTEIN 6.8 GM/DL (6.4-8.2)
[2020-04-07] MEDS: FUROSEMIDE 40 MG/4 ML INJ (LASIX) IV SCH ×2 (06:19→16:41)
--- NOTE | 2020-04-07 12:13 | History & Physical-Hospitalist ---
History of Present Illness HPI/Chief Complaint Pt is a 74yoCM with a PMH of COPD, A. fib, hypertension, CHF who presented to the ER due to SOB. He states it started over the last few days. He was staying at [facility] at the assisted living facility until the last week or so. He progressively became weak and SOB though prompting him to call his neighbor to assist him with getting to the hospital. He was too weak to even get in the truck and had to be lifted. He denies any fever or cough. He has leg edema. Was unable to get any shoes on yesterday due to edema. Source: patient Date Seen 04/07/20 Time Seen by a Provider: 12:02 Attending Physician Patricia Higginbotham MD PCP Wilfredo Blair MD Referring Physician Date of Admission April 06, 2020 at 15:51 Home Medications & Allergies Home Medications Reviewed patient Home Medication Reconciliation performed by pharmacy medication reconciliations extracorporeal technician and/or nursing. Patients Allergies have been reviewed. Allergies Allergies Coded Allergies Sulfa (Sulfonamide Antibiotics) (Verified Allergy, Unknown, 10/04/19) Past Bmvckpb-Hmrmrp-Endjtr Hx Past Med/Social Hx: Reviewed Nursing Past Med/Soc Hx Patient Social History Employed/Student: retired Alcohol Use: Occasionally Uses Alcohol Beverage of Choice: Beer Recreational Drug Use: No Drug of Choice: THC ON A REGULAR BASIS, SINCE THE S Smoking Status: Former Smoker Former Smoker, Quit: Jan 13, 2009 Type Used: Cigarettes 2nd Hand Smoke Exposure: No Physical Abuse Screen: No Sexual Abuse: No Recent Foreign Travel: No Contact w/other who traveled: No Recent Hopitalizations: Yes (08/2019) Recent Infectious Disease Expo: No Immunizations Up To Date Tetanus Booster (TDap): Unknown Pediatric: No Date of Pneumonia Vaccine: Aug 30, 2019 Date of Influenza Vaccine: Aug 30, 2019 Seasonal Allergies Seasonal Allergies: Yes Past Medical History Surgeries: Appendectomy, Cardiac, Orthopedic Respiratory: COPD Currently Using CPAP: No Currently Using BIPAP: No Cardiac: Atrial Fibrillation, Chronic Edema/Swelling, Hypertension, Palpitations, Valvular Heart Disease Reproductive: No Musculoskeletal: Arthritis Psychosocial: Anxiety History of Blood Disorders: No Adverse Reaction to Blood Elder: No Family History Reviewed Nursing Family Hx Asbestosis FH: CABG (coronary artery bypass surgery) 19 FATHER FH: breast cancer 19 MOTHER FH: uterine cancer 19 MOTHER Hypertension 19 FATHER Review of Systems Constitutional: No chills, No fever; weakness EENTM: no symptoms reported Respiratory: see HPI; No cough; dyspnea on exertion; No hemoptysis; short of breath Cardiovascular: No chest pain; edema, Hx of Intervention; No palpitations Gastrointestinal: No abdominal pain; constipation; No hematemesis; melena; No nausea, No vomiting Genitourinary: No decreased output, No dysuria Musculoskeletal: muscle weakness Skin: no symptoms reported Psychiatric/Neurological: No Symptoms Reported Physical Exam Physical Exam Vital Signs Vital Signs - First Documented 04/06/20 19:10 FiO2 36 Capillary Refill : Less Than 3 SecondsLess Than 3 Seconds Height, Weight, BMI Height: 5'9.00" Weight: 215lbs. 0.0oz. 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 Imaging: Reviewed Imaging Report Imaging Date of Exam:04/06/20 CHEST 1 VIEW, AP/PA ONLY INDICATION: Shortness of air, respiratory difficulty COMPARISON: 02/02/2020 TECHNIQUE: Single frontal radiograph of the chest dated 04/06/2020. FINDINGS: The cardiac silhouette is significantly enlarged. Mild central pulmonary vascular congestion. Developing and increasing small bibasilar pleural-parenchymal opacities with additional patchy opacities within the right midlung. Increasing prominence of the pulmonary interstitium. No pneumothorax. No acute osseous abnormality. IMPRESSION: Constellation of findings is suggestive of mild congestive heart failure/volume overload with associated small bibasilar pleural effusions and minimal interstitial edema. Assessment/Plan Admission Diagnosis Acutely Decompensated Heart Failure Admission Status: Inpatient Order (span 2 midnights) Reason for Inpatient Admission: IV diuretics, on oxygen, will take more than two midnights to stabilize for DC Assessment and Plan Acutely Decompensated Heart Failure Acute on Chronic Hypoxic Respiratory Failure Afib HTN NSTEMI Type II Continue lasix Resume home meds (amiodarone, metoprolol, cardizem) Currently in sinus on tele Cardiology consulted, appreciate recs Titrate oxygen as able Anemia Unsure of etiology does reports dark stool so concerning for GI source Surgery consulted, plan for EGD tomorrow PPI started Eliquis on hold for anemia and EGD COPD MAT protocol Wean oxygen Prednisone course Advair Weakness PT/OT Clinical Quality Measures DVT/VTE Risk/Contraindication: Risk Factor Score Per Nursin RFS Level Per Nursing on Admit: 3=High PATRICIA HIGGINBOTHAM MD April 07, 2020 12:13
[2020-04-07] MEDS ORDERED: ANTACID SUSP 30 ML UDC (MYLANTA) PO PRN (12:15)
[2020-04-07] MEDS ORDERED: BISACODYL 5 MG (DULCOLAX) TABLET PO PRN (12:15)
[2020-04-07] MEDS ORDERED: ONDANSETRON 4 MG/2 ML (SDV) Z0FRAN IV PRN (12:15)
[2020-04-07] MEDS ORDERED: BENZONATATE 100 MG (TESSALON) CAPSULE PO PRN (12:15)
[2020-04-07] MEDS ORDERED: MILK OF MAGNESIA 400 MG/5 ML 30 ML UDC PO PRN (12:15)
[2020-04-07] MEDS ORDERED: MELATONIN 3 MG TABLET PO PRN (12:15)
[2020-04-07] MEDS ORDERED: BISACODYL 10 MG SUPP (DULCOLAX) PR PRN (12:15)
[2020-04-07] MEDS ORDERED: PANTOPRAZOLE 40 MG (PROTONIX) TAB PO NR (12:30)
--- NOTE | 2020-04-07 12:46 | Consultation - Surgery ---
History of Present Illness History of Present Illness Patient Consulted On(lele/time) 04/07/20 12:41 Time Seen by Provider: 11:22 History of Present Illness Surgery asked to consult regarding Anemia. HPI per IM: Pt is a 74yoCM with a PMH of COPD, A. fib, hypertension, CHF who presented to the ER due to SOB. He states it started over the last few days. He was staying at [facility] at the assisted living facility until the last week or so. He progressively became weak and SOB though prompting him to call his neighbor to assist him with getting to the hospital. He was too weak to even get in the truck and had to be lifted. He denies any fever or cough. He has leg edema. Was unable to get any shoes on yesterday due to edema. Per ED: Here with increasing shortness of air over the last couple of days. Apparently he was recently and group home for fpc after a fall in early February. Got out of the group home a few days ago. Is doing right on the first day and even last night but this morning woke up with worsening shortness of breath that has been worse today today. Denies cough or fever. States he does have COPD and thinks that that has been aggravated. Also notes that his legs are quite swollen and that is worse over the last couple of days as well. Denies nausea, vomiting, diarrhea or diaphoresis. Admits to drinking 2 beers yesterday. Timing/Duration: 1-2 Days, Getting Worse Severity: Moderate Associated Systoms: No Cough, No Fever/Chills, No Nausea/Vomiting; Shortness of Air, Weakness When I saw pt this afternoon he stated he was "about 80% better than yesterday". Denied abdominal pain and no hematochezia or melena. He cannot remember every having an EGD and states last colonoscopy was about 4 years ago; doesn't think anything was found. Allergies and Home Medications Allergies Coded Allergies: Sulfa (Sulfonamide Antibiotics) (Verified Allergy, Unknown, 10/04/19) Home Medications Acetaminophen 500 Mg Tablet, 1,000 MG PO Q4H PRN for PAIN-MILD, (Reported) Albuterol Sulfate 8.5 Gm Hfa.aer.ad, 1-2 PUFF IH Q4H PRN for WHEEZING, (Reported) Albuterol Sulfate 2.5 Mg/0.5 Ml Vial.neb, 2.5 MG NEB Q4H PRN for SHORTNESS OF BREATH, (Reported) Amiodarone HCl 200 Mg Tablet, 200 MG PO BID, (Reported) Amlodipine Besylate 10 Mg Tablet, 10 MG PO DAILY, (Reported) Apixaban 5 Mg Tablet, 5 MG PO BID, (Reported) Diltiazem HCl 120 Mg Cap.er.24h, 120 MG PO DAILY, (Reported) Enalapril Maleate 20 Mg Tablet, 20 MG PO DAILY, (Reported) Furosemide 80 Mg Tablet, 80 MG PO DAILY Prescribed by: PATRICIA REID on 10/06/19 0954 Hydrocodone Bit/Acetaminophen 1 Each Tablet, 1 TAB PO Q4H PRN for PAIN-MODERATE, (Reported) Metoprolol Tartrate 100 Mg Tablet, 100 MG PO BID, (Reported) Potassium Chloride 10 Meq Tablet.er, 10 MEQ PO DAILY Prescribed by: PATRICIA REID on 10/06/19 0953 Prednisone 10 Mg Tab.ds.pk, 10 MG PO DAILY Take 6 tabs(60mg)daily,decrease by 1 tab(10MG)daily. Prescribed by: PATRICIA REID on 11/01/19 1120 Patient Home Medication List Home Medication List Reviewed: Yes Past Esnxgbu-Xdehhg-Tgqqpb Hx Patient Social History Alcohol Use: Occasionally Uses Recreational Drug Use: No Drug of Choice: THC ON A REGULAR BASIS, SINCE THE S Smoking Status: Former Smoker Former Smoker, Quit: Jan 13, 2009 Type Used: Cigarettes 2nd Hand Smoke Exposure: No Recent Foreign Travel: No Contact w/Someone Who Travel: No Recent Infectious Disease Expo: No Recent Hopitalizations: Yes (08/2019) Physical Abuse Screen: No Sexual Abuse: No Immunizations Up To Date Tetanus Booster (TDap): Unknown PED Vaccines UTD: No Date of Pneumonia Vaccine: Aug 30, 2019 Date of Influenza Vaccine: Aug 30, 2019 Seasonal Allergies Seasonal Allergies: Yes Surgeries History of Surgeries: Yes (left knee replaced x2, right TKR, shoulder sx) Surgeries: Appendectomy, Cardiac, Orthopedic Respiratory History of Respiratory Disorde: Yes Respiratory Disorders: COPD Cardiovascular History of Cardiac Disorders: Yes Cardiac Disorders: Atrial Fibrillation, Chronic Edema/Swelling, Hypertension, Palpitations, Valvular Heart Disease Neurological History of Neurological Disord: No Reproductive System Hx Reproductive Disorders: No Genitourinary History of Genitourinary Disor: No Gastrointestinal History of Gastrointestinal Di: No Musculoskeletal History of Musculoskeletal Dis: Yes (BILATERAL KNEE SURGERIES, RIGHT SHOULDER SURGERIES) Musculoskeletal Disorders: Arthritis Endocrine History of Endocrine Disorders: No HEENT History of HEENT Disorders: No Cancer History of Cancer: No Psychosocial History of Psychiatric Problem: Yes Behavioral Health Disorders: Anxiety Integumentary History of Skin or Integumenta: No Blood Transfusions History of Blood Disorders: No Adverse Reaction to a Blood Tr: No Family Medical History Significant Family History: Heart Disease, Cancer, Hypertension Family Medial History: Asbestosis FH: CABG (coronary artery bypass surgery) 19 FATHER FH: breast cancer 19 MOTHER FH: uterine cancer 19 MOTHER Hypertension 19 FATHER Review of Systems-General Constitutional: malaise, weakness EENTM: No blurred vision, No double vision, No mouth pain, No mouth swelling, No epistaxis Respiratory: dyspnea on exertion; No hemoptysis; short of breath Cardiovascular: No chest pain; edema, Hx of Intervention Gastrointestinal: No abdominal pain, No jaundice, No melena, No nausea, No vomiting Genitourinary: No dysuria; frequency; No hematuria Musculoskeletal: joint pain, joint swelling, muscle pain, muscle stiffness Skin: No change in color, No change in hair/nails Psychiatric/Neurological: Anxiety; Denies Depressed, Denies Seizure, Denies Tingling Other Pt was on Eliquis and states he does bruise and bleed easily Physical Exam-General Problems Physical Exam Vital Signs Vital Signs - First Documented 04/06/20 19:10 FiO2 36 Capillary Refill : Less Than 3 SecondsLess Than 3 Seconds General Appearance: WD/WN, no apparent distress Eyes: Bilateral Eye PERRL, Bilateral Eye EOMI HEENT: pharynx normal; No scleral icterus (R), No scleral icterus (L) Neck: non-tender, normal inspection Respiratory: chest non-tender, lungs clear, normal breath sounds, no respiratory distress, no accessory muscle use Cardiovascular: regular rate, rhythm, no murmur Gastrointestinal: normal bowel sounds, non tender, soft, no organomegaly, no pulsatile mass Back: no CVA tenderness, no vertebral tenderness Extremities: no calf tenderness, pedal edema (+2 bilaterally) Neurologic/Psychiatric: general duty nurse II-XII nml as tested, alert, normal mood/affect, oriented x 3 Skin: normal color, warm/dry Lymphatic: no adenopathy (neck, axilla or groin) Data Review Labs Laboratory Tests 04/06/20 14:13: White Blood Count 8.7, Red Blood Count 2.92L, Hemoglobin 8.2L, Hematocrit 27L, Mean Corpuscular Volume 92, Mean Corpuscular Hemoglobin 28, Mean Corpuscular Hemoglobin Concent 31L, Red Cell Distribution Width 16.9H, Platelet Count 366, Mean Platelet Volume 9.8, Neutrophils (%) (Auto) 82H, Lymphocytes (%) (Auto) 7L, Monocytes (%) (Auto) 9, Eosinophils (%) (Auto) 1, Basophils (%) (Auto) 1, Neutrophils # (Auto) 7.2, Lymphocytes # (Auto) 0.6L, Monocytes # (Auto) 0.8, Eosinophils # (Auto) 0.1, Basophils # (Auto) 0.1, Neutrophils % (Manual) 85, Lymphocytes % (Manual) 8, Monocytes % (Manual) 5, Eosinophils % (Manual) 2, Basophils % (Manual) 0, Band Neutrophils 0, Anisocytosis SLIGHT, Prothrombin Time 19.5H, INR Comment 1.6H, Activated Partial Thromboplast Time 50H, Sodium Level 138, Potassium Level 4.5, Chloride Level 103, Carbon Dioxide Level 24, Anion Gap 11, Blood Urea Nitrogen 17, Creatinine 1.24, Estimat Glomerular Filtr ation Rate 57, BUN/Creatinine Ratio 14, Glucose Level 81, Calcium Level 8.3L, Corrected Calcium 8.6, Total Bilirubin 0.5, Aspartate Amino Transf (AST/SGOT) 17, Alanine Aminotransferase (ALT/SGPT) 14, Alkaline Phosphatase 66, Troponin I 0.037H, C-Reactive Protein High Sensitivity 5.29H, B-Type Natriuretic Peptide 551.8H, Total Protein 6.7, Albumin 3.6 04/06/20 14:30: Lactic Acid Level 1.71 04/06/20 15:57: Urine Color YELLOW, Urine Clarity CLEAR, Urine pH 6.0, Urine Specific [place] 1.020, Urine Protein NEGATIVE, Urine Glucose (UA) NEGATIVE, Urine Ketones NEGATIVE, Urine Nitrite NEGATIVE, Urine Bilirubin NEGATIVE, Urine Urobilinogen 0.2, Urine Leukocyte Esterase NEGATIVE, Urine RBC (Auto) NEGATIVE, Urine RBC NONE, Urine WBC RARE, Urine Squamous Epithelial Cells NONE, Urine Crystals NONE, Urine Bacteria TRACE, Urine Casts PRESENT, Urine Hyaline Casts 5-10H, Urine Mucus SMALLH, Urine Culture Indicated NO 04/07/20 04:41: White Blood Count 4.3, Red Blood Count 2.95L, Hemoglobin 8.2L, Hematocrit 27L, Mean Corpuscular Volume 91, Mean Corpuscular Hemoglobin 28, Mean Corpuscular Hemoglobin Concent 31L, Red Cell Distribution Width 16.4H, Platelet Count 333, Mean Platelet Volume 10.6H, Neutrophils (%) (Auto) 94H, Lymphocytes (%) (Auto) 5L, Monocytes (%) (Auto) 1, Eosinophils (%) (Auto) 0, Basophils (%) (Auto) 0, Neutrophils # (Auto) 4.1, Lymphocytes # (Auto) 0.2L, Monocytes # (Auto) 0.0, Eosinophils # (Auto) 0.0, Basophils # (Auto) 0.0, Sodium Level 137, Potassium Level 4.3, Chloride Level 102, Carbon Dioxide Level 22, Anion Gap 13, Blood Urea Nitrogen 21H, Creatinine 1.24, Estimat Glomerular Filtration Rate 57, BUN/Creatinine Ratio 17, Glucose Level 132H, Calcium Level 8.4L, Corrected Calcium 8.7, Total Bilirubin 0.6, Aspartate Amino Transf (AST/SGOT) 15, Alanine Aminotransferase (ALT/SGPT) 14, Alkaline Phosphatase 67, Total Protein 6.8, Albumin 3.6 Assessment/Plan Assessment/Plan Assessment/Plan Anemia CHF SOB/Chronic Respiratory Insufficiency Pt is having most of his difficulties because of his CHF and chronic respiratory insufficiency; but this could be made worse because of his anemia and loss of O2 transport. He needs an EGD at least as an inpt to work-up his anemia and may need a colonoscopy as an outpt. I discussed this procedure with the pt; risks and complications not limited to bleeding, infection, pain and even esophageal perforation. All questions answered to his satisfaction; will get consent today, NPO after midnight and do EGD tomorrow. Clinical Quality Measures DVT/VTE Risk/Contraindication: Risk Factor Score Per Nursin RFS Level Per Nursing on Admit: 3=High ELLIE MARIE DO April 07, 2020 12:46
--- NOTE | 2020-04-07 13:33 | Physical Therapy Evaluation ---
PT Evaluation-General Medical Diagnosis Admission Date April 06, 2020 at 15:51 Medical Diagnosis: Acute COPD exacerbation Onset Date: April 06, 2020 Therapy Diagnosis Therapy Diagnosis: Impaired mobility Height/Weight Height (Feet): 5 Height (Inches): 9.00 Weight (Pounds): 215 Weight (Ounces): 0.0 Precautions Precautions/Isolations: Standard Precautions Weight Bear Status Right Lower Extremity: Right Weight Bearing/Tolerated Left Lower Extremity: Left Weight Bearing/Tolerated Referral Physician: Monika Higginbotham MD Reason for Referral: Evaluation/Treatment Medical History Pertinent Medical History: Atrial Fib, COPD, HTN Additional Medical History CHF, (B) knee replacements Current History Admit from [facility] to ED due to COPD exacerbation. Reviewed History: Yes Social History Home: Single Level Current Living Status: Significant Other Entry Into Home: Stairs With Railing PT Steps Into Home: 4 PT Steps Inside Home: 0 Prior Prior Level of Function SCALE: Activities may be completed with or without assistive devices. 3-Azooturdlf-pimlfqj completes the activity by him/herself with no assistance from a helper. 5-Set-up or Clean-up Assistance-helper sets up or cleans up; patient completes activity. Florence assists only prior to or following the activity. 4-Supervision or Touching Assistance-helper provides verbal cues and/or touching/steadying and/or contact guard assistance as patient completes activity. Assistance may be provided throughout the activity or intermittently. 3-Partial/Moderate Assistance-helper does LESS THAN HALF the effort. Florence lifts, holds or supports trunk or limbs, but provides less than half the effort. 2-Substantial/Maximal Assistance-helper does MORE THAN HALF the effort. Florence lifts or holds trunk or limbs and provides more than half the effort. 5-Dqcpvqnmm-zokrfz does ALL the effort. Patient does none of the effort to complete the activity. Or, the assistance of 2 or more helpers is required for the patient to complete the activity. If activity was not attempted, code reason: 7-Patient Refused. 9-Not Applicable-not attempted and the patient did not perform the activity before the current illness, exacerbation or injury. 10-Not Attempted due to Environmental Limitations-(lack of equipment, weather restraints, etc.). 88-Not Attempted due to Medical Conditions or Safety Concerns. Bed Mobility: 6 Transfers (B,C,W/C): 6 Gait: 6 Stairs: 6 Indoor Mobility (Ambulation): Independent Stairs: Independent Prior Devices Use: Walker Prior Device Use: FWW 2 months and prior he was not using a walker. Just started using a walker due to dyspnea. PT Evaluation-Current Subjective Mild dyspnea on arrival. Pt/Family Goals Return home. Objective Patient Orientation: Person, Place, Time, Situation Attachments: Oxygen ROM/Strength ROM Upper Extremities WFL ROM Lower Extremities WFL Strength Upper Extremities WFL Strength Lower Extremities WFL Integumentary/Posture Bowel Incontinence: No Bladder Incontinence: No Neuromuscular (Tone, Coordination, Reflexes) Intact Sensory Vision: Functional Hearing: Functional Sensation Right Upper Extremit: Intact Sensation Left Upper Extremity: Intact Sensation Right Lower Extremit: Intact Sensation Left Lower Extremity: Intact Transfers Roll Left to Right (QC): 6 Sit to Lying (QC): 6 Lying to Sitting/Side of Bed(Q: 6 Sit to Stand (QC): 6 Chair/Fnd-sw-Uoclt Xfer(QC): 6 Gait Does the Patient Walk?: Yes Mode of Locomotion: Walk Anticipated Mode of Locomotion: Walk Walk 10 feet (QC): 6 Walk 50 ft with 2 Turns(QC): 6 Distance: 90ft Gait Assistive Device: FWW Comments/Gait Description Limited due to dyspnea. Wheelchair Training Does the Pt Use a Wheelchair?: No Balance Sitting Static: Normal Sitting Dynamic: Normal Standing Static: Good Standing Dynamic: Good Assessment/Needs Pt was able to safely perform bed mobility, transfers, and gait. He would benefit from additional PT for improving activity tolerance. Rehab Potential: Good PT Short Term Goals Short Term Goals Time Frame: April 14, 2020 Roll Left & Right: 6 Sit to lyin Lying to sitting on side of be: 6 Sit to stand: 6 Chair/mtv-vb-xcuhb transfer: 6 Toilet transfer: 6 Car transfer: 6 Walk 10 feet: 6 Walk 50 feet with two turns: 6 Walk 150 feet: 6 Walking 10ft on uneven surface: 6 1 step (curb): 6 4 steps: 6 Picking up objects: 6 Does pt use a wc or scooter: No PT Plan Problem List Problem List: Activity Tolerance Treatment/Plan Treatment Plan: Continue Plan of Care Treatment Plan: Functional Activity Vikas, Functional Strength, Gait, Therapeutic Exercise Treatment Duration: April 14, 2020 Frequency: 6 times per week Estimated Hrs Per Day: .5 hour per day Patient and/or Family Agrees t: Yes Time/GCodes Time In: 1300 Time Out: 1330 Total Billed Treatment Time: 30 Total Billed Treatment 1, [facility] 30 DENNIS ABRAMS PT April 07, 2020 13:33
--- NOTE | 2020-04-07 15:36 | Progress Note - Cardiology ---
Cardiology SOAP Progress Note Subjective: Still short of breath albeit somewhat less Bilat leg swelling worse today, he says No cp or palp or syncope Gen malaise No focal weakness No n/v/d Objective: I&O/Vital Signs 04/07/20 04/07/20 04/07/20 04/07/20 04:00 06:41 06:41 08:00 Temp 36.3 37.1 Pulse 68 67 69 Resp 21 18 B/P (MAP) 134/72 (92) 140/70 (93) Pulse Ox 96 92 95 O2 Delivery Nasal Cannula Nasal Cannula Nasal Cannula O2 Flow Rate 2.00 1.00 2.00 04/07/20 04/07/20 04/07/20 04/07/20 08:00 10:26 12:00 12:45 Temp 36.9 Pulse 69 73 Resp 20 B/P (MAP) 125/67 (86) Pulse Ox 94 95 O2 Delivery Nasal Cannula Nasal Cannula Nasal Cannula O2 Flow Rate 2.00 2.00 2.00 04/07/20 14:10 Pulse Ox 90 O2 Delivery Nasal Cannula O2 Flow Rate 1.00 04/07/20 00:00 Intake Total 722 ml Output Total 400 ml Balance 322 ml Weight (Pounds): 215 Weight (Ounces): 0.0 Weight (Calculated Kilograms): 97.883818 Constitutional: AAO x 3, well-developed, well-nourished Respiratory: other (diminished bs at bases, prolonged exp, scattered rhonchi) Cardiovascular: regular rate-rhythm, S1 and S2, systolic murmur (soft JULIUS at card base) Gastrointestional: No tender; soft; No guarding, No rebound Extremities: No clubbing, No cyanosis; significant edema (bilat, pitting edema of the legs) Neurologic/Psychiatric: oriented x 3, other (moves all limbs equally) Skin: normal color, warm/dry Results/Procedures: Labs Laboratory Tests 04/06/20 15:57: Urine Color YELLOW, Urine Clarity CLEAR, Urine pH 6.0, Urine Specific [place] 1.020, Urine Protein NEGATIVE, Urine Glucose (UA) NEGATIVE, Urine Ketones NEGATIVE, Urine Nitrite NEGATIVE, Urine Bilirubin NEGATIVE, Urine Urobilinogen 0.2, Urine Leukocyte Esterase NEGATIVE, Urine RBC (Auto) NEGATIVE, Urine RBC NONE, Urine WBC RARE, Urine Squamous Epithelial Cells NONE, Urine Crystals NONE, Urine Bacteria TRACE, Urine Casts PRESENT, Urine Hyaline Casts 5-10H, Urine Mucus SMALLH, Urine Culture Indicated NO 04/07/20 04:41: White Blood Count 4.3, Red Blood Count 2.95L, Hemoglobin 8.2L, Hematocrit 27L, Mean Corpuscular Volume 91, Mean Corpuscular Hemoglobin 28, Mean Corpuscular Hemoglobin Concent 31L, Red Cell Distribution Width 16.4H, Platelet Count 333, Mean Platelet Volume 10.6H, Neutrophils (%) (Auto) 94H, Lymphocytes (%) (Auto) 5L, Monocytes (%) (Auto) 1, Eosinophils (%) (Auto) 0, Basophils (%) (Auto) 0, Neutrophils # (Auto) 4.1, Lymphocytes # (Auto) 0.2L, Monocytes # (Auto) 0.0, Eosinophils # (Auto) 0.0, Basophils # (Auto) 0.0, Sodium Level 137, Potassium Level 4.3, Chloride Level 102, Carbon Dioxide Level 22, Anion Gap 13, Blood Urea Nitrogen 21H, Creatinine 1.24, Estimat Glomerular Filtration Rate 57, BUN/Creatinine Ratio 17, Glucose Level 132H, Calcium Level 8.4L, Corrected Calcium 8.7, Total Bilirubin 0.6, Aspartate Amino Transf (AST/SGOT) 15, Alanine Aminotransferase (ALT/SGPT) 14, Alkaline Phosphatase 67, Total Protein 6.8, Albumin 3.6 Microbiology 04/06/20 Blood Culture - Preliminary, Resulted No growth Laboratory Tests 04/06/20 14:13 04/07/20 04:41 A/P: Assessment: Ac on chronic diastolic CHF Minimal troponin elevation, type 2 DE, likely due to CHF Anemia of undetermined etiology PAF, s/p cardioversion on 08/15/2019. 30 day MCOT completed on 05/05/2019 which showed low-grade ectopy. 1 refill episode of nonsustained VT for 5 beats. PSVT for 7 beats. Brief episodes of possible atrial fibrillation. On Amiodarone and Eliquis. Cardizem. ILR is recommended. Echocardiogram done on 10/04/2019 showed mild concentric LVH with an EF of 55-65 percent. Moderate to severe diastolic dysfunction. Severely dilated left atrium. Bzkr-xz-tivpmmag aortic regurgitation. Moderate tricuspid regurgitation. PA pressure of 53 mmHg. Hypertension PVCs, by history COPD - oxygen dependent Mild to moderate CAD. Left heart catheterization was done on 10/04/2019 which showed mild to moderate proximal LAD disease. FFR was done which was 0.85. PCI was deferred. Plan: * Continue diuretics for CHF * Eval anemia. If no active bleeding, then resume Eliquis for stroke prophylaxis * Monitor labs * I had a detailed discussion with him and answered CV-related questions JAYSON GUTIERREZ MD FACP FAC CCDS April 07, 2020 15:36
[2020-04-07] MEDS: ACETAMINOPHEN 325 MG TABLET PO PRN (17:50)
[2020-04-07] MEDS: ADVAIR HFA 115/21 MCG INHALER 8 GM IH SCH (18:22)
[2020-04-07] MEDS: AMIODARONE 200 MG (CORDARONE) TAB PO SCH (21:03)
[2020-04-07] MEDS: meTOprolol TARTRATE 50 MG (LOPRESSOR) TAB PO SCH (21:03)
[2020-04-08] VITALS (7 sets, daily range): BP systolic 113–134; BP diastolic 55–84
[2020-04-08] MEDS: ACETAMINOPHEN 325 MG TABLET PO PRN ×3 (00:08→22:50)
[2020-04-08] MEDS: RT-ALBUTEROL/IPRATROPIUM 3 ML (DUONEB) VIAL INH SCH ×6 (02:37→22:14)
[2020-04-08 04:36] LABS: HEMOGLOBIN 8.5 G/DL (13.3-17.7); MEAN PLATELET VOLUME 10.7 FL (7.4-10.4); RED CELL DISTRIBUTION WIDTH 16.8 % (10.0-14.5); WHITE BLOOD COUNT 8.4 10^3/uL (4.3-11.0)
[2020-04-08 04:51] LABS: POTASSIUM 4.4 MMOL/L (3.6-5.0)
[2020-04-08 04:52] LABS: CALCIUM 8.7 MG/DL (8.5-10.1)
[2020-04-08 04:57] LABS: CREATININE SERUM 1.4 MG/DL (0.60-1.30)
[2020-04-08] MEDS: ADVAIR HFA 115/21 MCG INHALER 8 GM IH SCH ×2 (06:28→18:10)
[2020-04-08] MEDS: CATHETER FLUSH 10 ML SYR IV SCH ×3 (06:29→22:49)
[2020-04-08] MEDS: FUROSEMIDE 40 MG/4 ML INJ (LASIX) IV SCH ×2 (06:30→16:20)
--- NOTE | 2020-04-08 07:33 | NUR ---
DR MARIE MESSAGED ABOUT MORNING MEDS, PT CURRENTLY NPO FOR EGD THIS AM.
[2020-04-08] MEDS: AMIODARONE 200 MG (CORDARONE) TAB PO SCH ×3 (07:53→21:31)
[2020-04-08] MEDS: meTOprolol TARTRATE 50 MG (LOPRESSOR) TAB PO SCH ×3 (07:53→21:28)
[2020-04-08] MEDS: predniSONE 20 MG TAB PO SCH (08:59)
[2020-04-08] MEDS: ENALAPRIL 10 MG (VASOTEC) TAB PO SCH (09:00)
[2020-04-08] MEDS: dilTIAZem120 MG (CARDIZEM CD) CAP PO SCH (09:00)
[2020-04-08] MEDS: PANTOPRAZOLE 40 MG (PROTONIX) TAB PO SCH (09:01)
[2020-04-08] MEDS ORDERED: proPOfol 200 MG/20 ML (DIPRIVAN) VIAL IV ONE (10:20)
[2020-04-08] MEDS ORDERED: LACTATED RINGERS 1,000 ML IV STA (10:24)
[2020-04-08] MEDS ORDERED: HURRICAINE EXT TUBE (BENZOCAINE) XX PRN (10:30)
--- NOTE | 2020-04-08 10:42 | Progress Note-Post Operative ---
Post-Operative Progess Note Surgeon (s)/Proc Tech (s) Surgeon ELLIE MARIE DO Proc Tech: none Pre-Operative Diagnosis Anemia Post-Operative Diagnosis Gasritis Hiatal Hernia Procedure & Operative Findings Date of Procedure 04/08/20 Procedure Performed/Findings EGD with bx Anesthesia Type IV sedation by GUEST SERVICES REPRESENTATIVE Estimated Blood Loss Estimated blood loss (mL): scant Specimens/Packing Specimens Removed Antral bx GE jxn bx ELLIE MARIE DO April 08, 2020 10:41
--- NOTE | 2020-04-08 10:52 | Anesthesia-General Post-Op ---
MAC Patient Condition Mental Status/LOC: Same as Preop Cardiovascular: Satisfactory Nausea/Vomiting: Absent Respiratory: Satisfactory Pain: Controlled Complications: Absent Post Op Complications Complications None Follow Up Care/Instructions Patient Instructions None needed. Anesthesiology Discharge Order Discharge Order Patient is doing well, no complaints, stable vital signs, no apparent adverse anesthesia problems. No complications reported per nursing. DWIGHT QUILES CRNA April 08, 2020 10:51
--- NOTE | 2020-04-08 12:11 | Progress Note - Hospitalist ---
Subjective HPI/CC On Admission Date Seen by Provider: April 08, 2020 Time Seen by Provider: 12:06 Pt is a 74yoCM with a PMH of COPD, A. fib, hypertension, CHF who presented to the ER due to SOB. He states it started over the last few days. He was staying at [facility] at the assisted living facility until the last week or so. He progressiv earl became weak and SOB though prompting him to call his neighbor to assist him with getting to the hospital. He was too weak to even get in the truck and had to be lifted. He denies any fever or cough. He has leg edema. Was unable to get any shoes on yesterday due to edema. Subjective/Events-last exam Pt reports feeling 90% better. Still has swelling in his legs. Underwent EGD today. No complaints. Focused Exam Lactate Level 04/06/20 14:30: Lactic Acid Level 1.71 Objective Exam Vital Signs Vital Signs Date Time Temp Pulse Resp B/P (MAP) Pulse Ox O2 Delivery O2 Flow Rate FiO2 04/08/20 12:00 36.6 58 18 117/64 (81) 95 Nasal Cannula 0.50 04/07/20 02:19 28 Capillary Refill : Less Than 3 SecondsLess Than 3 Seconds General Appearance: No Apparent Distress, WD/WN Respiratory: Lungs Clear, No Respiratory Distress Cardiovascular: Regular Rate, Rhythm, No Murmur Extremity: Swelling (2-3+ to just above calves bilaterally) Results/Procedures Lab Laboratory Tests 04/08/20 04:09 Patient resulted labs reviewed. Imaging: Reviewed Imaging Report Assessment/Plan Assessment and Plan Assess & Plan/Chief Complaint Acutely Decompensated Heart Failure Acute on Chronic Hypoxic Respiratory Failure Afib HTN NSTEMI Type II Continue lasix Resume home meds (amiodarone, metoprolol, cardizem) Currently in sinus on tele Cardiology consulted, appreciate recs Titrate oxygen as able Resume Eliquis as hemoglobin stable and negative EGD Anemia Unsure of etiology Surgery consulted, EGD negative PPI COPD MAT protocol Wean oxygen as able Prednisone course Advair Weakness PT/OT Diagnosis/Problems Diagnosis/Problems (1) Paroxysmal atrial fibrillation (2) Hypertension Status: Chronic Qualifiers: Hypertension type: essential hypertension Qualified Codes: I10 - Essential (primary) hypertension (3) COPD with acute exacerbation Status: Acute (4) Volume overload Status: Acute Qualifiers: Hypervolemia type: unspecified Qualified Codes: E87.70 - Fluid overload, unspecified (5) Elevated troponin Status: Acute Clinical Quality Measures DVT/VTE Risk/Contraindication: Risk Factor Score Per Nursin RFS Level Per Nursing on Admit: 3=High PATRICIA REID MD April 08, 2020 12:11
--- NOTE | 2020-04-08 12:21 | Progress Note - Surgery ---
Subjective Time Seen by a Provider: 12:02 Subjective/Events-last exam Pt seen and examined, talked to him about his EGD. He denies pain and his main complaint is swelling in his feet, "I guess I'm gonna have to let my heart doctor take care of it, huh?" Review of Systems General: No Chills, No Night Sweats Pulmonary: No Dyspnea, No Cough Cardiovascular: No: Chest Pain, Palpitations Gastrointestinal: No: Nausea, Vomiting, Abdominal Pain Focused Exam Lactate Level 04/06/20 14:30: Lactic Acid Level 1.71 Objective Exam Vital Signs Date Time Temp Pulse Resp B/P (MAP) Pulse Ox O2 Delivery O2 Flow Rate FiO2 04/08/20 12:00 36.6 58 18 117/64 (81) 95 Nasal Cannula 0.50 04/08/20 10:40 55 16 96 Room Air 04/08/20 10:35 53 16 94 OxyMask 10 04/08/20 08:00 36.8 60 18 132/70 (90) 97 Nasal Cannula 0.50 04/08/20 08:00 Nasal Cannula 2.00 04/08/20 06:39 57 04/08/20 06:37 91 Nasal Cannula 1.00 04/08/20 06:29 91 Nasal Cannula 1.00 04/08/20 04:38 36.6 59 20 134/73 (93) 94 Nasal Cannula 0.50 04/08/20 02:37 94 Nasal Cannula 2.00 04/08/20 00:44 55 04/07/20 23:40 36.7 58 20 128/65 (86) 95 Nasal Cannula 0.50 04/07/20 22:32 94 Nasal Cannula 2.00 04/07/20 20:00 Nasal Cannula 2.00 04/07/20 19:21 36.6 68 15 120/55 (76) 94 Nasal Cannula 1.00 04/07/20 19:00 64 04/07/20 18:18 93 Nasal Cannula 2.00 04/07/20 15:35 36.8 67 17 121/58 (79) 91 Nasal Cannula 1.00 04/07/20 14:10 90 Nasal Cannula 1.00 04/07/20 12:45 73 I & O 04/08/20 07:00 Intake Total 2250 ml Output Total 2625 ml Balance -375 ml Capillary Refill : Less Than 3 SecondsLess Than 3 Seconds General Appearance: No Apparent Distress, WD/WN HEENT: PERRL/EOMI, Moist Mucous Membranes; No Scleral Icterus (L), No Scleral Icterus (R) Respiratory: Lungs Clear, No Respiratory Distress Cardiovascular: Regular Rate, Rhythm, No Murmur Gastrointestinal: normal bowel sounds, non tender, soft, no organomegaly, no pulsatile mass Extremity: Swelling (2-3+ to just above calves bilaterally) Neurologic/Psychiatric: Alert, Oriented x3, Normal Mood/Affect Results Lab Laboratory Tests 04/08/20 04:09: White Blood Count 8.4, Red Blood Count 3.06L, Hemoglobin 8.5L, Hematocrit 28L, Mean Corpuscular Volume 90, Mean Corpuscular Hemoglobin 28, Mean Corpuscular Hemoglobin Concent 31L, Red Cell Distribution Width 16.8H, Platelet Count 331, Mean Platelet Volume 10.7H, Sodium Level 136, Potassium Level 4.4, Chloride Level 101, Carbon Dioxide Level 24, Anion Gap 11, Blood Urea Nitrogen 27H, Creatinine 1.40H, Estimat Glomerular Filtration Rate 50, BUN/Creatinine Ratio 19, Glucose Level 111H, Calcium Level 8.7 Microbiology 04/06/20 Urine Culture - Final, Complete 3 or more isolates 04/06/20 Blood Culture - Preliminary, Resulted No growth Assessment/Plan Assessment/Plan Assessment/Plan Anemia - nothing seen during EGD to explain anemia Gastritis Hiatal Hernia CHF SOB/Chronic Respiratory Insufficiency Pt is still having minimap problems because of his CHF and chronic respiratory insufficiency. EGD done but not ulcers or sequelae of bleeding seen during procedure. Pt may need colonoscopy as an outpt; can follow up with Dr. Romero for that (he did last colonoscopy in 2016). Continue [facility] care. Clinical Quality Measures DVT/VTE Risk/Contraindication: Risk Factor Score Per Nursin RFS Level Per Nursing on Admit: 3=High ELLIE MARIE DO April 08, 2020 12:21
--- NOTE | 2020-04-08 13:04 | Progress Note - Cardiology ---
Cardiology SOAP Progress Note Subjective: Shortness of breath and leg swelling improving, but not resolved No cp or palp or syncope No n/v/d Gen malaise No focal weakness Objective: I&O/Vital Signs 04/08/20 04/08/20 04/08/20 04/08/20 02:37 04:38 06:29 06:37 Temp 36.6 Pulse 59 Resp 20 B/P (MAP) 134/73 (93) Pulse Ox 94 94 91 91 O2 Delivery Nasal Cannula Nasal Cannula Nasal Cannula Nasal Cannula O2 Flow Rate 2.00 0.50 1.00 1.00 04/08/20 04/08/20 04/08/20 04/08/20 06:39 08:00 08:00 10:35 Temp 36.8 Pulse 57 60 53 Resp 18 16 B/P (MAP) 132/70 (90) Pulse Ox 97 94 O2 Delivery Nasal Cannula Nasal Cannula OxyMask O2 Flow Rate 2.00 0.50 10 04/08/20 04/08/20 10:40 12:00 Temp 36.6 Pulse 55 58 Resp 16 18 B/P (MAP) 117/64 (81) Pulse Ox 96 95 O2 Delivery Room Air Nasal Cannula O2 Flow Rate 0.50 04/08/20 00:00 Intake Total 2250 ml Output Total 1925 ml Balance 325 ml Weight (Pounds): 215 Weight (Ounces): 0.0 Weight (Calculated Kilograms): 97.723899 Constitutional: AAO x 3, well-developed, well-nourished Respiratory: other (diminished bs at bases, prolonged exp, scattered rhonchi) Cardiovascular: regular rate-rhythm, S1 and S2, systolic murmur (soft JULIUS at card base) Gastrointestional: No tender; soft; No guarding, No rebound Extremities: No clubbing, No cyanosis; significant edema (bilat, pitting edema of the legs) Neurologic/Psychiatric: oriented x 3, other (moves all limbs equally) Skin: normal color, warm/dry; No rash on exposed areas, No ulcerations on exposed areas Results/Procedures: Labs Laboratory Tests 04/08/20 04:09: White Blood Count 8.4, Red Blood Count 3.06L, Hemoglobin 8.5L, Hematocrit 28L, Mean Corpuscular Volume 90, Mean Corpuscular Hemoglobin 28, Mean Corpuscular Hemoglobin Concent 31L, Red Cell Distribution Width 16.8H, Platelet Count 331, Mean Platelet Volume 10.7H, Sodium Level 136, Potassium Level 4.4, Chloride Level 101, Carbon Dioxide Level 24, Anion Gap 11, Blood Urea Nitrogen 27H, Creatinine 1.40H, Estimat Glomerular Filtration Rate 50, BUN/Creatinine Ratio 19, Glucose Level 111H, Calcium Level 8.7 Microbiology 04/06/20 Urine Culture - Final, Complete 3 or more isolates 04/06/20 Blood Culture - Preliminary, Resulted No growth Laboratory Tests 04/06/20 14:13 04/07/20 04:41 04/08/20 04:09 A/P: Assessment: Ac on chronic diastolic CHF Minimal troponin elevation, type 2 NE, likely due to CHF Anemia of undetermined etiology PAF, s/p cardioversion on 08/15/2019. 30 day MCOT completed on 05/05/2019 which showed low-grade ectopy. 1 refill episode of nonsustained VT for 5 beats. PSVT for 7 beats. Brief episodes of possible atrial fibrillation. On Amiodarone and Eliquis. Cardizem. ILR is recommended. Echocardiogram done on 10/04/2019 showed mild concentric LVH with an EF of 55-65 percent. Moderate to severe diastolic dysfunction. Severely dilated left atrium. Ogzb-jv-pulrqoqt aortic regurgitation. Moderate tricuspid regurgitation. PA pressure of 53 mmHg. Hypertension PVCs, by history COPD - oxygen dependent Mild to moderate CAD. Left heart catheterization was done on 10/04/2019 which showed mild to moderate proximal LAD disease. FFR was 0.85, indicating hemod ynamic non-significance Plan: * Continue diuretics for CHF * Eval anemia. If no active bleeding, then resume Eliquis for stroke prophylaxis * Continue to monitor labs * I had again had a detailed discussion with him and answered CV-related questions JAYSON GUTIERREZ MD FACP FAC CCDS April 08, 2020 13:04
--- NOTE | 2020-04-08 19:07 | OPERATIVE REPORT ---
DATE OF SERVICE: PREOPERATIVE DIAGNOSIS: Anemia. POSTOPERATIVE DIAGNOSES: Gastritis and hiatal hernia. PROCEDURE PERFORMED: EGD with biopsy. SURGEON: Jaya Gomez DO. CONFERENCE SERVICE COORDINATOR: None. ANESTHESIA: IV sedation by the SOCIAL WORK CASE MANAGER. SPECIMEN: Biopsy from the antrum, biopsy from the GE junction. BLOOD LOSS: Scant. FLUIDS: Per anesthesia. POSTOPERATIVE CONDITION: Stable. INDICATION FOR PROCEDURE: The patient is a 74-year-old male, who has some anemia, which is much lower than what has been previously and needed a workup, started with an EGD. FINDINGS: The patient had some very mild gastritis, nothing in the duodenum. He had a very large hiatal hernia, but really no obvious sign of bleeding or something that could cause the anemia in the stomach. PROCEDURE NOTE: After informed consent was obtained, the patient was brought to the endoscopy suite and placed in bed in the left lateral decubitus position. He was administered IV sedation by the SOCIAL WORK CASE MANAGER, who then monitored his vitals the entire time, heart rate, blood pressure, continuous pulse ox and the scope was inserted down the mouth through the esophagus into the stomach. Upon entering the stomach, noted some very mild gastritis, pushed through into the duodenum and got into the first, second and possibly third portion of duodenum and it looked good. There were no signs of bleeding, no ulcers. Pulled back, did elect to do a biopsy of the antrum and then retroflexed the scope. The patient noted to have a very large hiatal hernia, but no real bleeding or signs of bleeding up in this area as well either. Pulled the scope into the GE junction, did a biopsy of the GE junction and then pushed the scope into the stomach, suctioned the stomach out and then pulled the scope up the esophagus and out the mouth. The patient tolerated the procedure and he was recovered in the endoscopy suite. Job ID: [id number] DocumentID: [id number] Dictated Date: 04/08/2020 10:41:14 Educational Advisor Date: 04/08/2020 14:00:58 Dictated By: JAYA GOMEZ DO
[2020-04-08] MEDS: APIXABAN 5 MG (ELIQUIS) TABLET PO SCH (21:28)
[2020-04-09] VITALS: BP 103/54
[2020-04-09 04:00] VITALS: BP 151/72
[2020-04-09 04:41] LABS: HEMOGLOBIN 8.1 G/DL (13.3-17.7); MEAN PLATELET VOLUME 10.5 FL (7.4-10.4); RED CELL DISTRIBUTION WIDTH 16.6 % (10.0-14.5)
[2020-04-09 04:55] LABS: POTASSIUM 3.9 MMOL/L (3.6-5.0)
[2020-04-09 04:56] LABS: CALCIUM 8.3 MG/DL (8.5-10.1)
[2020-04-09 05:00] LABS: CREATININE SERUM 1.58 MG/DL (0.60-1.30)
[2020-04-09] MEDS: RT-ALBUTEROL/IPRATROPIUM 3 ML (DUONEB) VIAL INH SCH ×2 (05:59→10:24)
[2020-04-09] MEDS: ADVAIR HFA 115/21 MCG INHALER 8 GM IH SCH (05:59)
[2020-04-09] MEDS: predniSONE 20 MG TAB PO SCH (06:22)
[2020-04-09] MEDS: ACETAMINOPHEN 325 MG TABLET PO PRN ×2 (06:22→12:35)
[2020-04-09] MEDS: FUROSEMIDE 40 MG/4 ML INJ (LASIX) IV SCH (06:23)
[2020-04-09] MEDS: CATHETER FLUSH 10 ML SYR IV SCH (06:23)
[2020-04-09 07:40] VITALS: BP 121/65
[2020-04-09] MEDS: meTOprolol TARTRATE 50 MG (LOPRESSOR) TAB PO SCH (08:44)
[2020-04-09] MEDS: APIXABAN 5 MG (ELIQUIS) TABLET PO SCH (08:44)
[2020-04-09] MEDS: PANTOPRAZOLE 40 MG (PROTONIX) TAB PO SCH (08:45)
[2020-04-09] MEDS: ENALAPRIL 10 MG (VASOTEC) TAB PO SCH (08:45)
[2020-04-09] MEDS: dilTIAZem120 MG (CARDIZEM CD) CAP PO SCH (08:45)
[2020-04-09] MEDS: AMIODARONE 200 MG (CORDARONE) TAB PO SCH (08:45)
[2020-04-09] MEDS ORDERED: FURO80TA83 PO (09:48)
[2020-04-09] MEDS ORDERED: FLUT1BLS9 IN (09:48)
[2020-04-09] MEDS ORDERED: AMLO5TAB9 PO (09:48)
[2020-04-09] MEDS ORDERED: BUSP5TAB59 PO (09:48)
[2020-04-09] MEDS ORDERED: POTA10TA6 PO (09:50)
[2020-04-09] MEDS ORDERED: [UNRECOGNIZED DRUG - CODE] PO (09:50)
[2020-04-09] MEDS ORDERED: BISA-65 PO (09:50)
--- NOTE | 2020-04-09 09:53 | NUR ---
SPOKE WITH THE PT AND WENT THRU THE EXT MED HISTORY TO COMPLETE THE MED REC POTASSIUM CHLORIDE ER 10 MEQ: DIRECTIONS FROM THE PHARMACY SAY 1 TAB BID HOWEVER THE PT IS JUST TAKING 1 TAB DAILY OTC MEDS: TYLENOL 650MG DULCOLAX
[2020-04-09] MEDS ORDERED: PRD20T PO (10:27)
--- NOTE | 2020-04-09 10:30 | NUR ---
CM/SS: Visited with pt as to plan for discharge f Plan: Pt will return home with Home Care Resumed - [facility] Summary: Pt reports he is ready to go home. Pt reports that he had just started with [facility] and is ok to continue to have services with them. Pt reports that he wants to leave as soon as he can, just needs his walking papers. He has a neighbor that looks after him, and will pick him up when ready. A referral is made to [facility]. Follow up phone call to [facility], about the referral.
--- NOTE | 2020-04-09 10:37 | Physical Therapy Daily Note ---
PT Daily Note-Current Subjective Pt is awake and agreeable to treatment on arrival. Mental Status Patient Orientation: Person, Place, Time, Situation Attachments: Oxygen Transfers SCALE: Activities may be completed with or without assistive devices. 2-Ufcssxvijl-njobgmw completes the activity by him/herself with no assistance from a helper. 5-Set-up or Clean-up Assistance-helper sets up or cleans up; patient completes activity. [place] assists only prior to or following the activity. 4-Supervision or Touching Assistance-helper provides verbal cues and/or touching/steadying and/or contact guard assistance as patient completes activit y. Assistance may be provided throughout the activity or intermittently. 3-Partial/Moderate Assistance-helper does LESS THAN HALF the effort. [place] lifts, holds or supports trunk or limbs, but provides less than half the effort. 2-Substantial/Maximal Assistance-helper does MORE THAN HALF the effort. [place] lifts or holds trunk or limbs and provides more than half the effort. 5-Axhntbtla-qyxquq does ALL the effort. Patient does none of the effort to complete the activity. Or, the assistance of 2 or more helpers is required for the patient to complete the activity. If activity was not attempted, code reason: 7-Patient Refused. 9-Not Applicable-not attempted and the patient did not perform the activity before the current illness, exacerbation or injury. 10-Not Attempted due to Environmental Limitations-(lack of equipment, weather restraints, etc.). 88-Not Attempted due to Medical Conditions or Safety Concerns. Sit to Stand (QC): 6 Chair/Nle-kp-Otorr Xfer(QC): 6 Weight Bearing Right Lower Extremity: Right Weight Bearing/Tolerated Left Lower Extremity: Left Weight Bearing/Tolerated Gait Training Does the Patient Walk?: Yes Distance: 120ft Walk 10 feet (QC): 6 Walk 50 ft with 2 Turns(QC): 6 Gait Assistive Device: FWW Wheelchair Training Does the Pt Use a Wheelchair?: No Exercises Seated Therapy Exercises: LE Protocol Seated Reps: 15 Assessment Current Status: Good Progress Pt is performing transfers and gait safely. He is concerned about returning home and falling again, but is planning on having home therapy with eventual outpatient therapy. PT Short Term Goals Short Term Goals Time Frame: April 14, 2020 Roll Left & Right: 6 Sit to lyin Lying to sitting on side of be: 6 Sit to stand: 6 Chair/shq-af-wapsw transfer: 6 Toilet transfer: 6 Car transfer: 6 Walk 10 feet: 6 Walk 50 feet with two turns: 6 Walk 150 feet: 6 Walking 10ft on uneven surface: 6 1 step (curb): 6 4 steps: 6 Picking up objects: 6 Does pt use a wc or scooter: No PT Plan Treatment/Plan Treatment Plan: Continue Plan of Care Treatment Plan: Functional Activity Vikas, Functional Strength, Gait, Therapeutic Exercise Treatment Duration: April 14, 2020 Frequency: 6 times per week Estimated Hrs Per Day: .5 hour per day Patient and/or Family Agrees t: Yes Time/GCodes Time In: 819 Time Out: 08 Total Billed Treatment Time: 15 Total Billed Treatment 1, gt 15 DENNIS ABRAMS PT April 09, 2020 10:37
--- NOTE | 2020-04-09 11:24 | Discharge Summary ---
Discharge Summary Reconcile Patient Problems Problems Reviewed?: Yes Instructions for Patient [facility] [employer], Assessment/Instructions Take medications as prescribed. Complete your course of steroids. Continue to take your diuretics. Follow-up with your primary care physician and hospital sales representative. Physician to follow Patient: Rossy Discharge Diet for Home: Cardiac Diet Hospital Course Date of Admission: April 06, 2020 at 15:51 Admission Diagnosis : acute on chronic diastolic heart failure, COPD with acute exacerbation Family Physician/Provider: Wilfredo Blair MD Date of Discharge: 04/09/20 Discharge Diagnosis: acute on chronic diastolic heart failure, COPD with acute exacerbation Hospital Course: [place] is a 74-year-old male with multiple comorbidities who presented with shortness of breath and was admitted with volume overload and COPD exacerbation. He was treated with diuretics for acute on chronic diastolic heart failure. He was given steroids and breathing treatments for his COPD exacerbation. He was evaluated by cardiology who assisted with his care. He should continue his diuretics on discharge. He has a couple more days of steroids which she will complete as an outpatient. He should follow-up with his primary care physician and his hospital sales representative. He was set up with home health care on discharge. Labs and Pending Lab Test: Laboratory Tests 04/09/20 04:05: White Blood Count 9.0, Red Blood Count 2.94L, Hemoglobin 8.1L, Hematocrit 27L, Mean Corpuscular Volume 90, Mean Corpuscular Hemoglobin 28, Mean Corpuscular Hemoglobin Concent 31L, Red Cell Distribution Width 16.6H, Platelet Count 334, Mean Platelet Volume 10.5H, Sodium Level 137, Potassium Level 3.9, Chloride Level 100, Carbon Dioxide Level 26, Anion Gap 11, Blood Urea Nitrogen 29H, Creatinine 1.58H, Estimat Glomerular Filtration Rate 43, BUN/Creatinine Ratio 18, Glucose Level 73, Calcium Level 8.3L Microbiology 04/07/20 MRSA Screen - Final, Complete MRSA not isolated 04/06/20 Urine Culture - Final, Complete 3 or more isolates 04/06/20 Blood Culture - Preliminary, Resulted No growth Home Meds Active Prednisone 20 Mg Tab 40 Mg PO DAILY 3 Days Reported Dulcolax (Bisacodyl) 5 Mg Tablet.dr 5 Mg PO DAILY PRN Klor-Con 10 (Potassium Chloride) 10 Meq Tablet.er 10 Meq PO DAILY 8Hr Arthritis Pain (Acetaminophen) 650 Mg Tablet.er 650-1,300 Mg PO Q8H PRN Wixela 250-50 Inhub (Fluticasone Propion/Salmeterol) 1 Each Blst.w.dev 1 Puff IN BID Amlodipine Besylate 5 Mg Tablet 5 Mg PO DAILY Lasix (Furosemide) 80 Mg Tablet 80 Mg PO DAILY Buspirone HCl 5 Mg Tablet 5 Mg PO TID PRN Albuterol Sulfate 2.5 Mg/0.5 Ml Vial.neb 2.5 Mg NEB Q4H PRN Eliquis (Apixaban) 5 Mg Tablet 5 Mg PO BID Diltiazem 24Hr ER (Diltiazem HCl) 120 Mg Cap.er.24h 120 Mg PO DAILY Amiodarone HCl 200 Mg Tablet 200 Mg PO BID Metoprolol Tartrate 100 Mg Tablet 100 Mg PO BID Proair Hfa (Albuterol Sulfate) 8.5 Gm Hfa.aer.ad 1-2 Puff IH Q4H PRN Enalapril Maleate 20 Mg Tablet 20 Mg PO DAILY Consulations cardiology Patient Allergies: Coded Allergies: Sulfa (Sulfonamide Antibiotics) (Verified Allergy, Unknown, 10/04/19) Height (Feet): 5 Height (Inches): 9.00 Weight (Pounds): 215 Weight (Ounces): 0.0 Home Health Need/Face to Face Date of Face to Face: April 09, 2020 Clinical Findings: Instability, Muscle weakness, Unsteady gait I have seen Pt jwro-jy-pkld: Yes Discharged To: Home Diagnosis/Conditions: debility, COPD, chronic diastolic heart failure Problems/Diagnosis/Condition: (1) Debility Patient is Homebound due to: Geoff fall risk due to instabilty, Muscle weakness Homebound Status Due to the above stated illness, injury or surgical procedure (medical condition or diagnosis) and associated clinical findings, the patient is homebound because of his/her inability to leave home except with aid of a supportive device and/or person AND leaving the home requires a considerable and taxing effort or is medically contraindicated. Pt req the following assistanc: [facility] Nursing Orders Home Health Services Order: Nursing Services, Blending Plant Operator-Evaluate & Treat, Physical Therapy-Evaluate & Treat Home Health Infusion Therapy Line Start Date: April 07, 2020 Therapy Orders Therapy Orders: OT (must have SN or PT order), Physical Therapy Therapy Specific Orders: Eval assistive deivces, Teach enviro modifications/safety, Gait training, Increase strength/endurance Certify Stmt I certify that this patient is under my care and that I, a nurse practitioner or a physician; a nurse practitioner physicians assistant working with me, had a face to face encounter that - meets the physician face to face encounter requirements with this patient as dated. Discharge Physical Exam General: Alert, Oriented X3, Cooperative, No Acute Distress HEENT: Atraumatic, PERRLA, EOMI Lungs: Clear to Auscultation, Normal Air Movement Heart: Regular Rate, Normal S1, Normal S2, No Murmurs Abdomen: Normal Bowel Sounds, Soft, No Tenderness Extremities: Other (4+ pitting edema bilateral lower extremities) Skin: No Rashes, No Significant Lesion Neuro: Normal Speech, Normal Tone Psych/Mental Status: Mental Status NL, Mood NL DEMARIO TO MD April 09, 2020 11:21
[2020-04-09 11:55] VITALS: BP 101/63
--- NOTE | 2020-04-09 15:49 | Cardiology Progress Note ---
Cardiology SOAP Progress Note Subjective: Significantly improved shortness of breath and lower extremity swelling. Objective: I&O/Vital Signs 04/09/20 04/09/20 04/09/20 04/09/20 04:00 05:59 06:01 07:00 Temp 36.9 Pulse 54 62 Resp 20 B/P (MAP) 151/72 (98) Pulse Ox 94 94 O2 Delivery Nasal Cannula Nasal Cannula Nasal Cannula O2 Flow Rate 0.50 1.00 1.00 04/09/20 04/09/20 04/09/20 04/09/20 07:40 07:55 11:55 12:09 Temp 36.8 37.1 Pulse 61 53 51 Resp 18 18 B/P (MAP) 121/65 (83) 101/63 (76) Pulse Ox 95 96 O2 Delivery Nasal Cannula Nasal Cannula Nasal Cannula O2 Flow Rate 0.50 1.00 0.50 04/09/20 13:00 B/P (MAP) 04/09/20 00:00 Intake Total 2338 ml Output Total 2725 ml Balance -387 ml Weight (Pounds): 215 Weight (Ounces): 0.0 Weight (Calculated Kilograms): 97.395993 Constitutional: AAO x 3, well-developed, well-nourished Respiratory: other (diminished bs at bases, prolonged exp, scattered rhonchi) Cardiovascular: regular rate-rhythm, S1 and S2, systolic murmur (soft JULIUS at card base) Gastrointestional: No tender; soft; No guarding, No rebound Extremities: No clubbing, No cyanosis; significant edema (bilat, pitting edema of the legs) Neurologic/Psychiatric: no motor/sensory deficits, alert, normal mood/affect, oriented x 3, other (moves all limbs equally) Skin: normal color, warm/dry; No rash on exposed areas, No ulcerations on exposed areas Results/Procedures: Labs Laboratory Tests 04/09/20 04:05: White Blood Count 9.0, Red Blood Count 2.94L, Hemoglobin 8.1L, Hematocrit 27L, Mean Corpuscular Volume 90, Mean Corpuscular Hemoglobin 28, Mean Corpuscular Hemoglobin Concent 31L, Red Cell Distribution Width 16.6H, Platelet Count 334, Mean Platelet Volume 10.5H, Sodium Level 137, Potassium Level 3.9, Chloride Level 100, Carbon Dioxide Level 26, Anion Gap 11, Blood Urea Nitrogen 29H, Creatinine 1.58H, Estimat Glomerular Filtration Rate 43, BUN/Creatinine Ratio 18, Glucose Level 73, Calcium Level 8.3L Microbiology 04/07/20 MRSA Screen - Final, Complete MRSA not isolated 04/06/20 Urine Culture - Final, Complete 3 or more isolates 04/06/20 Blood Culture - Preliminary, Resulted No growth A/P: Assessment/Dx: Ac on chronic diastolic CHF, significantly improved. Minimal troponin elevation, type 2 NM, likely due to CHF Anemia of undetermined etiology PAF, s/p cardioversion on 08/15/2019. 30 day MCOT completed on 05/05/2019 which showed low-grade ectopy. 1 refill episode of nonsustained VT for 5 beats. PSVT for 7 beats. Brief episodes of possible atrial fibrillation. On Amiodarone and Eliquis. Cardizem. ILR. Echocardiogram done on 10/04/2019 showed mild concentric LVH with an EF of 55-65 percent. Moderate to severe diastolic dysfunction. Severely dilated left atrium. Jiec-yv-bcxxhixw aortic regurgitation. Moderate tricuspid regurgitation. PA pressure of 53 mmHg. Hypertension PVCs, by history COPD - oxygen dependent, significantly improved. Mild to moderate CAD. Left heart catheterization was done on 10/04/2019 which showed mild to moderate proximal LAD disease. FFR was 0.85, indicating hemodynamic non-significance Plan: Plan: * Continue diuretics for CHF * Continue Eliquis for stroke prophylaxis if okay with primary team. * Continue to monitor labs * I had again had a detailed discussion with him and answered CV-related questions * Okay to discharge and follow-up in the office in 3-4 weeks. Thank you for your consultation. Please call me if you have any questions. Jaz Molina MD, FACP, FACC, FSCAI, FHRS, CCDS Interventional Cardiology Cardiac Electrophysiology Vascular Medicine and Endovascular Interventions Marta MOLINA MD April 09, 2020 15:49
== END 2020-04-09 13:24 | disposition home health service (06) | DRG 280 ==
LOC: EDUNIT# 13:46 → ER 13:47 → 4TH 15:51
PROVIDERS: ADMIT Family Medicine; ATTEND Family Medicine
PROC: 0DB48ZX Excision of Esophagogastric Junction, Via Natural or Artificial Opening Endoscopic, Diagnostic (ICD-10-PCS; 2020-04-08)
PROC: 0DB78ZX Excision of Stomach, Pylorus, Via Natural or Artificial Opening Endoscopic, Diagnostic (ICD-10-PCS; principal; 2020-04-08 10:10)
DX: I11.0 Hypertensive heart disease with heart failure (principal); I50.33 Acute on chronic diastolic (congestive) heart failure; I21.A1 Myocardial infarction type 2; J44.1 Chronic obstructive pulmonary disease with (acute) exacerbation; J96.21 Acute and chronic respiratory failure with hypoxia; I47.2 Ventricular tachycardia; I47.1 Supraventricular tachycardia; E87.70 Fluid overload, unspecified; I48.0 Paroxysmal atrial fibrillation; I25.10 Atherosclerotic heart disease of native coronary artery without angina pectoris; I08.2 Rheumatic disorders of both aortic and tricuspid valves; K29.70 Gastritis, unspecified, without bleeding; K44.9 Diaphragmatic hernia without obstruction or gangrene; D64.9 Anemia, unspecified; F41.9 Anxiety disorder, unspecified; M19.91 Primary osteoarthritis, unspecified site; F12.90 Cannabis use, unspecified, uncomplicated; Z87.891 Personal history of nicotine dependence; Z99.81 Dependence on supplemental oxygen; Z90.49 Acquired absence of other specified parts of digestive tract
CPT/HCPCS: 36415; 71045; 80048; 80053; 81000; 83605; 83880; 84484; 85007; 85025; 85027; 85610; 85730; 86141; 87040; 87081; 87088; 93005; 93306; 94640; 94664; 94760; 96374; 96375

== ENCOUNTER 2020-04-15 15:02 | Inpatient (IN) | payer MEDICARE ==
[~2020-04-15] VITALS: Ht 175.3 cm; Wt 91.4 kg
[~2020-04-15 15:02] MED LIST changes: +AMLO5TAB9 PO; +BISA-65 PO; +BUSP5TAB59 PO; +FLUT1BLS9 IN; +FURO80TA83 PO; +POTA10TA6 PO; +[UNRECOGNIZED DRUG - CODE] PO
--- OUTSIDE RECORDS SUMMARY | 2020-04-15 15:09 | XMS REPORT | Encounter Summary ---
Author Author [facility] Organization [facility] Address Unknown Phone Unavailable Care Team Providers Care Checker Name Role Phone Win Verduzco MD PCP Unavailable Reason for Visit * Reason Comments Medication Refill Encounter Details Care Team Description Date Type Department Win Verduzco MD NO ADDRESS ON FILE Pain of back and right lower extremity 05/10/[address] [facility] [address] [place] [address] Social History Date Tobacco Use Types Packs/Day Years Used Quit: 01/13/2011 Former Smoker Smokeless Tobacco: Former Chew Quit: 1966 User Comments: 50pack year hx Drinks/Week oz/Week Comments Alcohol Use beer, case a week Yes Sex Assigned at Date Recorded Not on file Industry Job Start Date Occupation Not on file Not on file Not on file Travel End Travel History Travel Start No recent travel history available. documented as of this encounter Miscellaneous Notes * Telephone Encounter - Inez Hatch - 05/10/2019 1:04 PM CDT Call when rx ready documented in this encounter Plan of Treatment Not on filedocumented as of this encounter Visit Diagnoses Diagnosis Pain of back and right lower extremity documented in this encounter
--- OUTSIDE RECORDS SUMMARY | 2020-04-15 15:09 | XMS REPORT | Clinical Summary ---
Author Author [facility] Organization [facility] Address Unknown Phone Unavailable Care Team Providers Care Roving Technician Name Role Phone Win Verduzco MD PCP Unavailable Allergies Comments Active Allergy Reactions Severity Noted Date Sulfamethoxazole-Trimetho Unknown 11/10/2016 prim Sulfur Hives 01/05/2017 Medications End Date Status Medication Sig Dispensed Refills Start Date Active traMADol (ULTRAM) 50 mg Take 2 Tablet 90 Tablet 1 tabletIndications: (100 mg) by 7 Chronic bilateral low mouth every 8 back pain without hours as sciatica needed for Pain. Active albuterol DIRECTED 60 mL 5 (PROVENTIL,VENTOLIN) 5 IN NEBULIZER 8 mg/mL Solution for Dx COPD. Nebulization Active amLODIPine (NORVASC) 10 Take 1 Tablet 90 Tablet 1 mg tablet (10 mg) by 9 mouth daily. Active cloNIDine HCl (CATAPRES) Take 1 Tablet 270 Tablet 1 0.2 mg tablet (0.2 mg) by 9 mouth every 8 hours. Active enalapril (VASOTEC) 20 mg TAKE 1 TABLET 90 Tablet 1 tablet BY MOUTH 9 DAILY. Active furosemide (LASIX) 40 mg Take 1 Tablet 90 Tablet 1 tablet (40 mg) by 9 mouth daily. Active indomethacin (INDOCIN) 50 Take 1 60 Capsule 1 mg capsule Capsule (50 9 mg) by mouth Continuous as needed for Pain, Mild. Active metoprolol tartrate Take 1 Tablet 180 Tablet 1 01/29 (LOPRESSOR) 100 mg tablet (100 mg) by 9 mouth 2 times daily. Active albuterol HFA 90 mcg INHALE 2 18 Gram 5 02/22 inhaler PUFFS BY 9 MOUTH EVERY 4 TO 6 HOURS NEEDED. Active tadalafil (CIALIS) 20 mg Take 1 Tablet 15 Tablet 3 tablet (20 mg) by 9 mouth 1 time daily as needed for Erectile Dysfunction. Active HYDROcodone-acetaminophen TAKE ONE 40 Tablet 0 (NORCO) 10-325 mg TABLET BY 9 TabletIndications: Pain MOUTH EVERY of back and right lower FOUR HOURS extremity NEEDED FOR PAIN MAX OF 6 PER DAY. Active Problems Problem Noted Date Referral of patient 03/21/2019 Low back pain 01/05/2017 Immunizations Name Administration Dates Next Due Influenza Vaccine 2018 Social History Date Tobacco Use Types Packs/Day [...] Travel Start No recent travel history available. Last Filed Vital Signs Reading Time Taken Comments Vital Sign 152/78 03/21/2019 11:43 AM CDT Blood Pressure 45 03/21/2019 11:43 AM CDT Pulse 36.6 C (97.9 F) 07/05/2018 8:41 AM CDT Temperature 16 03/21/2019 11:43 AM CDT Respiratory Rate 98% 03/21/2019 11:43 AM CDT Oxygen Saturation - - Inhaled Oxygen Concentration 94.1 kg (207 lb 6.4 oz) 03/21/2019 11:43 AM CDT Weight 175.3 cm (5' 9") 03/21/2019 11:43 AM CDT Height 30.63 03/21/2019 11:43 AM CDT Body Mass Index Plan of Treatment Health Maintenance Due Date Last Done Comments COLORECTAL SCREENING 1997 ZOSTER VACCINE (1 of 2) 1997 PNEUMOCOCCAL VACCINE 65+ 2012 YEARS (1 of 2 - PCV13) INFLUENZA VACCINE 06/30/2019 2018, 018, 2018, Additional history exists Results Not on filefrom Last 3 Months Insurance Type Payer Benefit Subscriber ID Effective Phone Address Plan / Dates Group Medicare MEDICARE MEDICARE [id number] 2012- PART A AND Present B Advance Directives For more information, please contact: [phone] Patient Medical Liaison Explanation Type Date Recorded Advance Directive POA Advance Directive Living Will
--- OUTSIDE RECORDS SUMMARY | 2020-04-15 15:10 | XMS REPORT | Encounter Summary ---
Author Author [facility] Organization [facility] Address Unknown Phone Unavailable Care Team Providers Care Satellite Tv Technician Installer Name Role Phone Win Verduzco MD PCP Unavailable Reason for Visit * Reason Comments Medication Refill Encounter Details Care Team Description Date Type Department Win Verduzco MD NO ADDRESS ON FILE 07/02/2018 Refill Via [facility] [address] [place] [address] [address] Social History Date Tobacco Use Types Packs/Day Years Used Quit: 01/13/2011 Former Smoker Smokeless Tobacco: Former Chew Quit: 1966 User Comments: 50pack year hx Sex Assigned at Date Recorded Not on file Industry Job Start Date Occupation Not on file Not on file Not on file Travel End Travel History Travel Start No recent travel history available. documented as of this encounter Plan of Treatment Not on filedocumented as of this encounter Visit Diagnoses Not on filedocumented in this encounter
--- OUTSIDE RECORDS SUMMARY | 2020-04-15 15:10 | XMS REPORT | Encounter Summary ---
Author Author [facility] Organization [facility] Address Unknown Phone Unavailable Care Team Providers Care Fire Crew Worker Name Role Phone Win Verduzco MD PCP Unavailable Reason for Visit * Reason Comments Medication Refill Encounter Details Care Team Description Date Type Department Win Verduzco MD NO ADDRESS ON FILE 09/30/2017 Refill Via [facility] [address] [place] [address] Social History Date Tobacco Use [...]
--- OUTSIDE RECORDS SUMMARY | 2020-04-15 15:10 | XMS REPORT | Encounter Summary ---
Author Author [facility] Organization [facility] Address Unknown Phone Unavailable Care Team Providers Care Head Mixer Name Role Phone Win Verduzco MD PCP Unavailable Reason for Visit * Reason Comments Medication Question Encounter Details Care Team Description Date Type Department Win Verduzco MD NO ADDRESS ON FILE Medication Question 02/22/2018 Telephone Via [facility] [address] [place] [address] Social History Date Tobacco Use [...] encounter Miscellaneous Notes * Telephone Encounter - Rama Turner CMA - 02/22/2018 3:27 PM CDT Called and had to give directions for the Albuterol in the Nebulizer. Advised q 4 hrs prn COPD. * Telephone Encounter - Ryan Montiel - 02/22/2018 12:16 PM CDT Hortencia gurrola [facility] needs clarification on instructions for [place]'s albuterol. Please call. documented in this encounter Plan of Treatment Not on filedocumented as of this encounter Visit Diagnoses Not on filedocumented in this encounter
--- OUTSIDE RECORDS SUMMARY | 2020-04-15 15:10 | XMS REPORT | Encounter Summary ---
Author Author [facility] Organization [facility] Address Unknown Phone Unavailable Care Team Providers Care Textile Artist Name Role Phone Win Verduzco MD PCP Unavailable Reason for Visit * Reason Comments Medication Refill Encounter Details Care Team Description Date Type Department Win Verduzco MD NO ADDRESS ON FILE 09/08/2018 Refill Via [facility] [address] [place] [address] [place] [address] Social History Date Tobacco Use [...]
--- OUTSIDE RECORDS SUMMARY | 2020-04-15 15:10 | XMS REPORT | Encounter Summary ---
Author Author [facility] Organization [facility] Address Unknown Phone Unavailable Care Team Providers Care Washer Blanket Name Role Phone Win Verduzco MD PCP Unavailable Reason for Visit * Reason Comments Medication Refill Encounter Details Care Team Description Date Type Department Win Verduzco MD NO ADDRESS ON FILE 10/07/2018 Refill Via [facility] [address] [place] [address] [place] [address] Social History Date Tobacco Use [...]
--- OUTSIDE RECORDS SUMMARY | 2020-04-15 15:10 | XMS REPORT | Encounter Summary ---
Author Author [facility] Organization [facility] Address Unknown Phone Unavailable Care Team Providers Care Production Operator Name Role Phone Win Verduzco MD PCP Unavailable Reason for Visit * Reason Comments Medication Refill Encounter Details Care Team Description Date Type Department Win Verduzco MD NO ADDRESS ON FILE 11/08/2018 Refill Via [facility] [address] [place] [address] Social History Date Tobacco Use [...]
--- OUTSIDE RECORDS SUMMARY | 2020-04-15 15:10 | XMS REPORT | Encounter Summary ---
Author Author [facility] Organization [facility] Address Unknown Phone Unavailable Care Team Providers Care Silk Washing Machine Operator Name Role Phone Win Verduzco MD PCP Unavailable Reason for Visit * Reason Comments Medication Refill Encounter Details Care Team Description Date Type Department Win Verduzco MD NO ADDRESS ON FILE 01/26/2019 Refill Via [facility] [address] [place] [address] Social History Date Tobacco Use [...]
--- OUTSIDE RECORDS SUMMARY | 2020-04-15 15:10 | XMS REPORT | Encounter Summary ---
Author Author [facility] Organization [facility] Address Unknown Phone Unavailable Care Team Providers Care French Folding Machine Operator Name Role Phone Win Verduzco MD PCP Unavailable Reason for Referral * Consult, Test & Treat (5-7 Days) Referred By Contact Referred To Contact Status Reason Specialty Diagnoses / Procedures Win Verduzco MD NO ADDRESS ON FILE Kodi Guerin MD [address] [address] Closed Orthopedic Diagnoses Surgery Pain of back and right lower extremity Reason for Visit * Reason Comments Back Pain chronic, rt side below belt line Constipation few months, takes OTC laxat marie Medication Question cialis questions Encounter Details Care Team Description Date Type Department Win Verduzco MD NO ADDRESS ON FILE Pain of back and right lower extremity ( Primary Dx); Constipation, unspecified constipation type; Prostatic hypertrophy 07/05/2018 Office Visit Via [facility] [employer] [facility] [address] [place] [address] Social History Date Tobacco Use [...] history available. documented as of this encounter Last Filed Vital Signs Reading Time Taken Comments Vital Sign 140/80 07/05/2018 8:41 AM CDT Blood Pressure 44 07/05/2018 8:41 AM CDT Pulse 36.6 C (97.9 F) 07/05/2018 8:41 AM CDT Temperature - - Respiratory Rate 96% 07/05/2018 8:41 AM CDT Oxygen Saturation - - Inhaled Oxygen Concentration 92.5 kg (204 lb) 07/05/2018 8:41 AM CDT Weight 174.2 cm (5' 8.58") 07/05/2018 8:41 AM CDT Height 30.49 07/05/2018 8:41 AM CDT Body Mass Index documented in this encounter Progress Notes * Win Verduzco MD - 07/05/2018 9:00 AM CDT HISTORY OF PRESENT ILLNESS [place], a 72 y.o. male. Chief Complaint Patient presents with Back Pain chronic, rt side below belt line Constipation few months, takes OTC laxatives Medication Question cialis questions Subjective The history is provided by the patient. The medical record reflects the History of Present Illness as obtained by myself in discussion with the patient. Back Pain Location: Lumbar spine and sacro-iliac joint Quality: Shooting Radiates to: Does not radiate Pain severity: Moderate Pain is: Worse during the day Onset quality: Gradual Timing: Intermittent Associated symptoms: abdominal pain Constipation Associated symptoms include abdominal pain. Past Medical History: Diagnosis Date HTN (hypertension) Current Outpatient Prescriptions: tadalafil (CIALIS) 20 mg tablet, Take 0.25 Tablets (5 mg) by mouth 1 time d aily as needed for Erectile Dysfunction., Disp: 30 Tablet, Rfl: 3 cloNIDine HCl (CATAPRES) 0.2 mg tablet, TAKE ONE TABLET BY MOUTH EVERY 8 HO URS., Disp: 30 Tablet, Rfl: 0 amLODIPine (NORVASC) 10 mg tablet, Take 1 Tablet (10 mg) by mouth daily Pt needs to make an appt in Jul to continue getting refill.., Disp: 60 Tablet, Rfl : 0 enalapril (VASOTEC) 20 mg tablet, Take 1 Tablet (20 mg) by mouth daily Pt n eeds to make an appt in Jul to continue getting refills.., Disp: 60 Tablet, Rfl : 0 furosemide (LASIX) 40 mg tablet, Take 1 Tablet (40 mg) by mouth daily Pt ne eds to make an appt in Jul 2018 to continue getting refills,., Disp: 60 Tablet, Rfl: 0 metoprolol tartrate (LOPRESSOR) 100 mg tablet, Take 1 Tablet (100 mg) by [facility] 2 times daily Pt needs to make an appt in Jul to continue getting refills.. , Disp: 120 Tablet, Rfl: 0 albuterol (PROVENTIL,VENTOLIN) 5 mg/mL Solution for Nebulization, DIRECT ED IN NEBULIZER Dx COPD., Disp: 20 mL, Rfl: 5 albuterol HFA 90 mcg inhaler, USE DIRECTED., Disp: 8.5 Gram, Rfl: 5 indomethacin (INDOCIN) 50 mg capsule, Take 1 Capsule (50 mg) by mouth Elisa nuous as needed for Pain, Mild., Disp: 60 Capsule, Rfl: 1 HYDROcodone-acetaminophen (NORCO) 10-325 mg Tablet, Take 1 Tablet by mouth every 8 hours as needed for Pain, Moderate. Max Daily Amount: 3 Tablets, Disp: 6 0 Tablet, Rfl: 0 sildenafil (VIAGRA) 100 mg tablet, Take 1 Tablet (100 mg) by mouth 1 time d aily as needed for Erectile Dysfunction., Disp: 10 Tablet, Rfl: 3 traMADol (ULTRAM) 50 mg tablet, Take 2 Tablet (100 mg) by mouth every 8 nora rs as needed for Pain., Disp: 90 Tablet, Rfl: 1 Tadalafil (CIALIS) 5 mg tablet, Take 5 mg by mouth 1 time daily as needed f or Erectile Dysfunction., Disp: , Rfl: REVIEW OF SYSTEMS Review of Systems Constitutional: Negative. HENT: Negative. Eyes: Negative. Respiratory: Negative. Cardiovascular: Negative. Gastrointestinal: Positive for abdominal pain and constipation. Endocrine: Negative. Genitourinary: Positive for urgency. Musculoskeletal: Positive for back pain. Skin: Negative. Neurological: Negative. Objective PHYSICAL EXAM BP (!) 140/80 | Pulse (!) 44 | Temp 97.9 F (36.6 C) | Ht 5' 8.58" (1.742 m) | Wt 92.5 kg (204 lb) | SpO2 96% | BMI 30.49 kg/m Physical Exam Constitutional: He appears well-developed and well-nourished. No distress. HENT: Head: Normocephalic and atraumatic. Eyes: Conjunctivae are normal. Right eye exhibits no discharge. Left eye exhibit s no discharge. Neck: Normal range of motion. Cardiovascular: Normal rate. Pulmonary/Chest: Effort normal. Abdominal: Soft. Musculoskeletal: He exhibits tenderness. He exhibits no edema or deformity. Lumbar back: He exhibits tenderness and pain. He exhibits no deformity. Skin: Skin is warm and dry. He is not diaphoretic. Psychiatric: He has a normal mood and affect. His behavior is normal. No results found for: WBC, HGB, HGBPOC, HCT, HCTPOC, PLT, MCV, ESR, ESRPOC, CHOL TOT, HDL, LDLCALC, LDLDIRECT, TRIGLYCERIDE, ALT, AST, NA, K, KPOC, CL, CO2, CREA T, BUN, GFR, TSH, TSHULTRA, THYROIDSTIM, PSA, INR, GLUCOSEF, GLUCOSE, HGBA1C, GA CROALBUMIN, MALBUR, [id number] Assessment ASSESSMENT and PLAN: Encounter Diagnoses Name Primary? Pain of back and right lower extremity Yes Constipation, unspecified constipation type Prostatic hypertrophy Orders Placed This Encounter XR PELVIS 1 OR 2 VW Referral to Orthopedic Surgery - Provider Preferences tadalafil (CIALIS) 20 mg tablet DISCUSSION: 72-year-old gentleman who comes in with multiple complaints. Is complaining of constipation has had it for approximately 3 months has had increasing difficulty . He has been eating more fiber. He is poor a poor water drinker. I gave him some samples of Linzess to see if this might be helpful we will disc also discus sed dietary measures. He has been using some Dulcolax rather frequently. Probl em #2 as he has what he describes as back pain however the pain is over the righ t portion of the pelvis near the sacroiliac joints. He does not describe any ra diculopathy at this time. He had an MRI done in the past that showed some signi ficant changes possible early spinal stenosis. We will get an x-ray of his pelv is. I also referred him to Dr. Kaye for further evaluation. He also describe s having used some Cialis that was given to him and decreased his getting up at night to urinate from 4-5-1 time per night we discussed that. I wrote him a pre scription for Cialis 5 mg daily. The question will be whether he will be able t o afford. We will see him back in follow-up in approximately 1 month. Data Unavailable He voiced understanding and agreement with the treatment plan. He understands t he importance of taking his medications and keeping all follow-up appointments. All questions were answered. [id number] will be provided to patient u star check-out. documented in this encounter Plan of Treatment Order Schedule Name Type Priority Associated Diag noses Ordered: 07/05/2018 XR PELVIS 1 OR 2 VW Imaging Routine Pain of ba ck and right lower extremity Order Schedule Name Type Priority Associated Diag noses Ordered: 07/05/2018 AMB REFERRAL TO Outpatient Routine Pain of back a nd right ORTHOPEDIC SURGERY Referral lower extremity documented as of this encounter Visit Diagnoses Diagnosis Pain of back and right lower extremity - Primary Constipation, unspecified constipation type Prostatic hypertrophy Unspecified hyperplasia of prostate wit hout urinary obstruction and other lower urinary tract symptoms (LUTS) documented in this encounter
--- OUTSIDE RECORDS SUMMARY | 2020-04-15 15:10 | XMS REPORT | Encounter Summary ---
Author Author [facility] Organization [facility] Address Unknown Phone Unavailable Care Team Providers Care Semi Driver Name Role Phone Win Verduzco MD PCP Unavailable Reason for Visit * Reason Comments E&M Of Chronic Disease(s) Encounter Details Care Team Description Date Type Department Win Verduzco MD NO ADDRESS ON FILE Panlobular emphysema (Primary Dx); Pain of back and right lower extremity; Erectile dysfunction, unspecified erectile dysfunction type; Prostatic hypertrophy 2018 Office Visit Via [facility] [address] [place] [address] Social History Date Tobacco Use [...] Signs Reading Time Taken Comments Vital Sign 181/85 2018 8:24 AM CDT Blood Pressure 48 2018 8:24 AM CDT Pulse - - Temperature - - Respiratory Rate 97% 2018 8:24 AM CDT Oxygen Saturation - - Inhaled Oxygen Concentration 93.4 kg (206 lb) 2018 8:24 AM CDT Weight 174 cm (5' 8.5") 2018 8:24 AM CDT Height 30.87 2018 8:24 AM CDT Body Mass Index documented in this encounter Progress Notes * Win Verduzco MD - 2018 8:45 AM CDT HISTORY OF PRESENT ILLNESS [place], a 73 y.o. male. Chief Complaint Patient presents with E&M Of Chronic Disease(s) Subjective The medical record reflects the History of Present Illness as obtained by myself in discussion with the patient. Past Medical History: Diagnosis Date HTN (hypertension) Current Outpatient Prescriptions: metoprolol tartrate (LOPRESSOR) 100 mg tablet, Take 1 Tablet (100 mg) by [facility] 2 times daily Pt needs to make an appt in Jul to continue getting refills.. , Disp: 120 Tablet, Rfl: 0 furosemide (LASIX) 40 mg tablet, Take 1 Tablet (40 mg) by mouth daily Pt ne eds to make an appt in Jul 2018 to continue getting refills,., Disp: 60 Tablet, Rfl: 0 enalapril (VASOTEC) 20 mg tablet, Take 1 Tablet (20 mg) by mouth daily Pt n eeds to make an appt in Jul to continue getting refills.., Disp: 60 Tablet, Rfl : 0 amLODIPine (NORVASC) 10 mg tablet, Take 1 Tablet (10 mg) by mouth daily Pt needs to make an appt in Jul to continue getting refill.., Disp: 60 Tablet, Rfl : 0 cloNIDine HCl (CATAPRES) 0.2 mg tablet, Take 1 Tablet (0.2 mg) by mouth huma ry 8 hours Pt is needing labs before further refills.., Disp: 30 Tablet, Rfl: 0 albuterol HFA 90 mcg inhaler, USE DIRECTED., Disp: 8.5 Gram, Rfl: 5 albuterol (PROVENTIL,VENTOLIN) 5 mg/mL Solution for Nebulization, DIRECT ED IN NEBULIZER Dx COPD., Disp: 60 mL, Rfl: 5 indomethacin (INDOCIN) 50 mg capsule, Take 1 Capsule (50 mg) by mouth Elisa nuous as needed for Pain, Mild., Disp: 60 Capsule, Rfl: 1 [DISCONTINUED] cloNIDine HCl (CATAPRES) 0.2 mg tablet, Take 1 Tablet (0.2 m g) by mouth every 8 hours Pt is needing labs before further refills.., Disp: 30 Tablet, Rfl: 0 dutasteride (AVODART) 0.5 mg Capsule, Take 1 Capsule (0.5 mg) by mouth debby fish., Disp: 30 Capsule, Rfl: 1 [DISCONTINUED] amLODIPine (NORVASC) 10 mg tablet, Take 1 Tablet (10 mg) by mouth daily Pt needs to make an appt in Jul to continue getting refill.., Disp: 60 Tablet, Rfl: 0 [DISCONTINUED] enalapril (VASOTEC) 20 mg tablet, Take 1 Tablet (20 mg) by m outh daily Pt needs to make an appt in Jul to continue getting refills.., Disp: 60 Tablet, Rfl: 0 [DISCONTINUED] furosemide (LASIX) 40 mg tablet, Take 1 Tablet (40 mg) by mo uth daily Pt needs to make an appt in Jul 2018 to continue getting refills,., D isp: 60 Tablet, Rfl: 0 [DISCONTINUED] metoprolol tartrate (LOPRESSOR) 100 mg tablet, Take 1 Tablet (100 mg) by mouth 2 times daily Pt needs to make an appt in Jul to continue ge tting refills.., Disp: 120 Tablet, Rfl: 0 [DISCONTINUED] albuterol (PROVENTIL,VENTOLIN) 5 mg/mL Solution for Nebuliza tion, DIRECTED IN NEBULIZER Dx COPD., Disp: 20 mL, Rfl: 5 [DISCONTINUED] albuterol HFA 90 mcg inhaler, USE DIRECTED., Disp: 8.5 Gr am, Rfl: 5 traMADol (ULTRAM) 50 mg tablet, Take 2 Tablet (100 mg) by mouth every 8 nora rs as needed for Pain., Disp: 90 Tablet, Rfl: 1 REVIEW OF SYSTEMS Review of Systems HENT: Positive for congestion. Respiratory: Positive for shortness of breath and wheezing. Neurological: Positive for weakness. All other systems reviewed and are negative. Objective PHYSICAL EXAM BP (!) 181/85 | Pulse (!) 48 | Ht 5' 8.5" (1.74 m) | Wt 93.4 kg (206 lb) | S pO2 97% | BMI 30.87 kg/m Physical Exam Constitutional: He is oriented to person, place, and time. He appears well-devel oped and well-nourished. HENT: Head: Normocephalic. Eyes: Pupils are equal, round, and reactive to light. EOM are normal. Neck: Normal range of motion. Neck supple. Cardiovascular: Normal rate and regular rhythm. Pulmonary/Chest: Effort normal and breath sounds normal. Decreased breath sounds. Abdominal: Soft. Bowel sounds are normal. Musculoskeletal: Normal range of motion. Neurological: He is alert and oriented to person, place, and time. Skin: Skin is warm and dry. No results found for: WBC, HGB, HGBPOC, HCT, HCTPOC, PLT, MCV, ESR, ESRPOC, CHOL TOT, HDL, LDLCALC, LDLDIRECT, TRIGLYCERIDE, ALT, AST, NA, K, KPOC, CL, CO2, CREA T, BUN, GFR, TSH, TSHULTRA, THYROIDSTIM, PSA, INR, GLUCOSEF, GLUCOSE, HGBA1C, ID CROALBUMIN, MALBUR, [id number] Assessment ASSESSMENT and PLAN: Encounter Diagnoses Name Primary? Panlobular emphysema Yes Pain of back and right lower extremity Erectile dysfunction, unspecified erectile dysfunction type Prostatic hypertrophy Orders Placed This Encounter metoprolol tartrate (LOPRESSOR) 100 mg tablet furosemide (LASIX) 40 mg tablet enalapril (VASOTEC) 20 mg tablet amLODIPine (NORVASC) 10 mg tablet cloNIDine HCl (CATAPRES) 0.2 mg tablet albuterol HFA 90 mcg inhaler albuterol (PROVENTIL,VENTOLIN) 5 mg/mL Solution for Nebulization DISCUSSION: 73-year-old gentleman with a history of chronic obstructive pulmonary disease. He had smoked for 40+ years on auscultation he has decreased variation throughou t. He has some nasal congestion also. We went over his medications refill thos e that he needed refilled. He has a history of hypertension also. He is utiliz ing albuterol intermittently. He no longer smokes. Data Unavailable He voiced understanding and agreement with the treatment plan. He understands t he importance of taking his medications and keeping all follow-up appointments. All questions were answered. [id number] will be provided to patient u star check-out. documented in this encounter Plan of Treatment Not on filedocumented as of this encounter Visit Diagnoses Diagnosis Panlobular emphysema - Primary Other emphysema Pain of back and right lower extremity Erectile dysfunction, unspecified erect ile dysfunction type Prostatic hypertrophy Unspecified hyperplasia of prostate wit hout urinary obstruction and other lower urinary tract symptoms (LUTS) documented in this encounter
--- OUTSIDE RECORDS SUMMARY | 2020-04-15 15:10 | XMS REPORT | Encounter Summary ---
Author Author [facility] Organization [facility] Address Unknown Phone Unavailable Care Team Providers Care Insurance Inspector Name Role Phone Win Verduzco MD PCP Unavailable Reason for Visit * Reason Comments Medication Refill Encounter Details Care Team Description Date Type Department Win Verduzco MD NO ADDRESS ON FILE 02/16/2019 Refill Via [facility] [address] [place] [address] Social History Date Tobacco Use [...]
--- OUTSIDE RECORDS SUMMARY | 2020-04-15 15:10 | XMS REPORT | Encounter Summary ---
Author Author [facility] Organization [facility] Address Unknown Phone Unavailable Care Team Providers Care Fence Rider Name Role Phone Win Verduzco MD PCP Unavailable Reason for Visit * Reason Comments Medication Refill Encounter Details Care Team Description Date Type Department Win Verduzco MD NO ADDRESS ON FILE 02/03/2018 Refill Via [facility] [address] [place] [address] Social History Date Tobacco Use [...] Telephone Encounter - Rama Turner CMA - 02/03/2018 10:01 AM SENIOR NETWORK ENGINEER Furosemide 40mg Metroprolol Tart 100mg , Clonidine 0.2mg, Amlodipine 10mg And E nalapril 20mg. Pt hasn't been seen since May and needs to make an appt before any more refills may be called in. OR NETWORK ENGINEER documented in this encounter Plan of Treatment Not on filedocumented as of this encounter Visit Diagnoses Not on filedocumented in this encounter
--- OUTSIDE RECORDS SUMMARY | 2020-04-15 15:10 | XMS REPORT | Encounter Summary ---
Author Author [facility] Organization [facility] Address Unknown Phone Unavailable Care Team Providers Care Pharmaceutical Plant Operator Name Role Phone Win Verduzco MD PCP Unavailable Reason for Visit * Reason Comments Medication Refill Encounter Details Care Team Description Date Type Department Win Verduzco MD NO ADDRESS ON FILE 03/01/2018 Refill Via [employer] [address] [place] [address] Social History Date Tobacco Use [...]
--- OUTSIDE RECORDS SUMMARY | 2020-04-15 15:10 | XMS REPORT | Encounter Summary ---
Author Author [facility] Organization [facility] Address Unknown Phone Unavailable Care Team Providers Care Staffing Analyst Name Role Phone Win Verduzco MD PCP Unavailable Reason for Visit * Reason Comments Medication Refill Encounter Details Care Team Description Date Type Department Win Verduzco MD NO ADDRESS ON FILE 06/16/2018 Refill Via [facility] [address] [place] [address] Social History Date Tobacco Use [...] Telephone Encounter - Rama Turner CMA - 06/16/2018 2:58 PM CDT [facility] sent over for a refill on patient's Sodium Cloride 0.9% Neb soln for hi s Nebulizer. Went through current med list and past medication list back to 2015 and it isn't on anything. Called [facility] and they didn't have it on file. documented in this encounter Plan of Treatment Not on filedocumented as of this encounter Visit Diagnoses Not on filedocumented in this encounter
--- OUTSIDE RECORDS SUMMARY | 2020-04-15 15:10 | XMS REPORT | Encounter Summary ---
Author Author [facility] Organization [facility] Address Unknown Phone Unavailable Care Team Providers Care Mortising Machine Operator Name Role Phone Win Verduzco MD PCP Unavailable Reason for Visit * Reason Comments Medication Refill Encounter Details Care Team Description Date Type Department Win Verduzco MD NO ADDRESS ON FILE 12/30/2018 Refill Via [employer] [address] [place] [address] Social History Date Tobacco Use [...]
--- OUTSIDE RECORDS SUMMARY | 2020-04-15 15:10 | XMS REPORT | Encounter Summary ---
Author Author [facility] Organization [facility] Address Unknown Phone Unavailable Care Team Providers Care Automobile Detailer Name Role Phone Win Verduzco MD PCP Unavailable Reason for Visit * Reason Comments Medication Refill Medication Refill Encounter Details Care Team Description Date Type Department Win Verduzco MD NO ADDRESS ON FILE Pain of back and right lower extremity 04/13/2019 Refill Via [facility] [address] [place] [address] Social History Date Tobacco Use [...]
--- OUTSIDE RECORDS SUMMARY | 2020-04-15 15:10 | XMS REPORT | Encounter Summary ---
Author Author [facility] Organization [facility] Address Unknown Phone Unavailable Care Team Providers Care Septic Cleaner Name Role Phone Win Verduzco MD PCP Unavailable Reason for Visit * Reason Comments Medication Review Cialis denied and will try Dutasteride 0.5mg one daily #30. Encounter Details Care Team Description Date Type Department Win Verduzco MD NO ADDRESS ON FILE Medication Review (Cialis denied and guzman l try Dutasteride 0.5mg one daily #30.) 07/20/2018 Telephone Via [facility] [address] [place] [address] Social History Date Tobacco Use [...] Telephone Encounter - Rama Turner CMA - 07/20/2018 8:11 AM CDT Called pt to talk about the Cialis 5 mg not being covered under insurance. Pt s tates he liked the Cialis helped to where he didn't have to get up at night. Dr Verduzco advised that he could try Dutasteride 0.5mg #30 one daily. Pt decided that he didn't want to go through [facility]. documented in this encounter Plan of Treatment Not on filedocumented as of this encounter Visit Diagnoses Not on filedocumented in this encounter
--- OUTSIDE RECORDS SUMMARY | 2020-04-15 15:10 | XMS REPORT | Encounter Summary ---
Author Author [facility] Organization [facility] Address Unknown Phone Unavailable Care Team Providers Care Welding Specialist Name Role Phone Win Verduzco MD PCP Unavailable Reason for Visit * Reason Comments Hypertension follow up Gout left foot ankle area seems to be starting Arthritis Encounter Details Care Team Description Date Type Department Win Verduzco MD NO ADDRESS ON FILE Chronic bilateral low back pain without sciatica (Primary Dx); Elevated BP without diagnosis of hypertension 02/22/2018 Office Visit Via [employer] [address] [place] [address] Social History Date Tobacco Use [...] Signs Reading Time Taken Comments Vital Sign 177/86 02/22/2018 11:26 AM CDT Blood Pressure 53 02/22/2018 11:26 AM CDT Pulse - - Temperature - - Respiratory Rate 99% 02/22/2018 11:26 AM CDT Oxygen Saturation - - Inhaled Oxygen Concentration 94.3 kg (207 lb 12.8 oz) 02/22/2018 11:26 AM CDT Weight 175.3 cm (5' 9") 02/22/2018 11:26 AM CDT Height 30.69 02/22/2018 11:26 AM CDT Body Mass Index documented in this encounter Progress Notes * Win Verduzco MD - 02/22/2018 11:51 AM CDT HISTORY OF PRESENT ILLNESS [place], a 72 y.o. male. Chief Complaint Patient presents with Hypertension follow up Gout left foot ankle area seems to be starting Arthritis Subjective The history is provided by the patient. The medical record reflects the History of Present Illness as obtained by myself in discussion with the patient. Hypertension This is a chronic problem. The current episode started more than 1 year ago. The problem is unchanged. The problem is controlled. Pertinent negatives include no neck pain or shortness of breath. Arthritis Pertinent negatives include no diarrhea, dysuria, fatigue, fever or rash. Past Medical History: Diagnosis Date HTN (hypertension) Current Outpatient Prescriptions: cloNIDine HCl (CATAPRES) 0.2 mg tablet, TAKE 1 TABLET BY MOUTH EVERY 8 HOUR S Pt needs to make an appt before any more refills may be called in.., Disp: 15 Tablet, Rfl: 0 metoprolol tartrate (LOPRESSOR) 100 mg tablet, TAKE 1 TABLET BY MOUTH TWICE DAILY Pt needs to be seen before any more refills may be called in.., Disp: 30 Tablet, Rfl: 0 furosemide (LASIX) 40 mg tablet, Take 1 Tablet (40 mg) by mouth daily Pt ne eds to be seen before any more refills may be given., Disp: 15 Tablet, Rfl: 0 amLODIPine (NORVASC) 10 mg tablet, Take 1 Tablet (10 mg) by mouth daily Pt needs to make an appt before any more refills may be given.., Disp: 15 Tablet, R fl: 0 enalapril (VASOTEC) 20 mg tablet, Take 1 Tablet (20 mg) by mouth daily Pt n eeds to make an appt before any more refills may be called in.., Disp: 15 Tablet , Rfl: 0 albuterol (PROVENTIL,VENTOLIN) 5 mg/mL Solution for Nebulization, DIRECT ED IN NEBULIZER., Disp: 20 mL, Rfl: 5 PROAIR HFA 90 mcg/actuation inhaler, USE DIRECTED, Disp: 8.5 Gram, Rfl: 5 [DISCONTINUED] furosemide (LASIX) 40 mg tablet, Take 1 Tablet (40 mg) by mo uth daily Pt needs to be seen before any more refills may be given., Disp: 15 Ta blet, Rfl: 0 [DISCONTINUED] amLODIPine (NORVASC) 10 mg tablet, Take 1 Tablet (10 mg) by mouth daily Pt needs to make an appt before any more refills may be given.., Dis p: 15 Tablet, Rfl: 0 [DISCONTINUED] cloNIDine HCl (CATAPRES) 0.2 mg tablet, TAKE 1 TABLET BY BAYRON TH EVERY 8 HOURS Pt needs to make an appt before any more refills may be called in.., Disp: 15 Tablet, Rfl: 0 [DISCONTINUED] metoprolol tartrate (LOPRESSOR) 100 mg tablet, TAKE 1 TABLET BY MOUTH TWICE DAILY Pt needs to be seen before any more refills may be called in.., Disp: 30 Tablet, Rfl: 0 [DISCONTINUED] enalapril (VASOTEC) 20 mg tablet, Take 1 Tablet (20 mg) by m outh daily Pt needs to make an appt before any more refills may be called in.., Disp: 15 Tablet, Rfl: 0 [DISCONTINUED] albuterol (PROVENTIL,VENTOLIN) 5 mg/mL Solution for Nebuliza tion, DIRECTED IN NEBULIZER, Disp: 20 mL, Rfl: 5 [DISCONTINUED] meloxicam (MOBIC) 15 mg tablet, Take 1 Tablet (15 mg) by bayron th daily., Disp: 30 Tablet, Rfl: 3 sildenafil (VIAGRA) 100 mg tablet, Take 1 [...] f or Erectile Dysfunction., Disp: , Rfl: indomethacin (INDOCIN) 50 mg capsule, Take 50 mg by mouth Continuous as nee ded for Pain, Mild., Disp: , Rfl: REVIEW OF SYSTEMS Review of Systems Constitutional: Negative for fatigue and fever. HENT: Negative. Eyes: Negative. Respiratory: Negative. Negative for chest tightness and shortness of breath. Gastrointestinal: Negative for abdominal pain, constipation, diarrhea and nausea . Endocrine: Negative. Genitourinary: Negative for dysuria. Musculoskeletal: Positive for back pain. Negative for myalgias and neck pain. Skin: Negative for rash. Allergic/Immunologic: Negative. Neurological: Negative for dizziness, syncope and numbness. Objective PHYSICAL EXAM BP (!) 177/86 | Pulse (!) 53 | Ht 5' 9" (1.753 m) | Wt 94.3 kg (207 lb 12.8 o z) | SpO2 99% | BMI 30.69 kg/m Physical Exam Constitutional: He appears well-developed and well-nourished. No distress. HENT: Head: Normocephalic and atraumatic. Eyes: Conjunctivae are normal. Right eye exhibits no discharge. Left eye exhibit s no discharge. Neck: Normal range of motion. Cardiovascular: Normal rate. Pulmonary/Chest: Effort normal. Musculoskeletal: He exhibits tenderness. He exhibits no [...] TSHULTRA, THYROIDSTIM, PSA, INR, GLUCOSEF, GLUCOSE, HGBA1C, [place] CROALBUMIN, MALBUR, [id number] Assessment ASSESSMENT and PLAN: Encounter Diagnoses Name Primary? Chronic bilateral low back pain without sciatica Yes Elevated BP without diagnosis of hypertension Orders Placed This Encounter cloNIDine HCl (CATAPRES) 0.2 mg tablet metoprolol tartrate (LOPRESSOR) 100 mg tablet furosemide (LASIX) 40 mg tablet amLODIPine (NORVASC) 10 mg tablet enalapril (VASOTEC) 20 mg tablet albuterol (PROVENTIL,VENTOLIN) 5 mg/mL Solution for Nebulization DISCUSSION: Chronic low back pain and ED, wishes to try med for ED, given sample of Cialis 2 0 Data Unavailable He voiced understanding and agreement with the treatment plan. He understands t he importance of taking his medications and keeping all follow-up appointments. All questions were answered. [id number] will be provided to patient u star check-out. documented in this encounter Plan of Treatment Not on filedocumented as of this encounter Visit Diagnoses Diagnosis Chronic bilateral low back pain without sciatica - Primary Elevated BP without diagnosis of hypert ension documented in this encounter
--- OUTSIDE RECORDS SUMMARY | 2020-04-15 15:10 | XMS REPORT | Encounter Summary ---
Author Author [facility] Organization [facility] Address Unknown Phone Unavailable Care Team Providers Care Oven Attendant Name Role Phone Win Verduzco MD PCP Unavailable Reason for Visit * Reason Comments Medication Refill Encounter Details Care Team Description Date Type Department Win Verduzco MD NO ADDRESS ON FILE 04/27/2018 Refill Via [employer] [address] [place] [place] [address] Social History Date Tobacco Use [...]
--- OUTSIDE RECORDS SUMMARY | 2020-04-15 15:10 | XMS REPORT | Encounter Summary ---
Author Author [facility] Organization [facility] Address Unknown Phone Unavailable Care Team Providers Care Milk Pickup Truck Driver Name Role Phone Win Verduzco MD PCP Unavailable Reason for Visit * Reason Comments Medication Refill Metoprolol Tart 100mg #180 one BID Encounter Details Care Team Description Date Type Department Win Verduzco MD NO ADDRESS ON FILE 07/01/2018 Refill Via [employer] [address] [place] [address] [place] [address] Social History Date Tobacco Use [...] Telephone Encounter - Rama Turner CMA - 07/01/2018 9:51 AM CDT [facility] sent a request for refill on Metoprolol Tart 100mg #180 one BID. documented in this encounter Plan of Treatment Not on filedocumented as of this encounter Visit Diagnoses Not on filedocumented in this encounter
--- OUTSIDE RECORDS SUMMARY | 2020-04-15 15:10 | XMS REPORT | Encounter Summary ---
Author Author [facility] Organization [facility] Address Unknown Phone Unavailable Care Team Providers Care Milking System Installer Name Role Phone Win Verduzco MD PCP Unavailable Reason for Referral * Consult, Test & Treat (5-7 Days) Referred By Contact Referred To Contact Status Reason Specialty Diagnoses / Procedures Win Verduzco MD NO ADDRESS ON FILE Closed Interventional Diagnoses Cardiology Paroxysmal atrial fibrillation Reason for Visit * Reason Comments Back Pain Seen at Urgent Care, xrays and Tramadol, told he was in A Fib and had Aortic plaque Encounter Details Care Team Description Date Type Department Win Verduzco MD NO ADDRESS ON FILE Paroxysmal atrial fibrillation (Primary Dx); Pain of back and right lower extremity; Panlobular emphysema; Referral of patient 03/21/2019 Office Visit Via [facility] [address] [place] [address] Social History Date Tobacco Use [...] Pressure 45 03/21/2019 11:43 AM CDT Pulse - - Temperature 16 03/21/2019 11:43 AM CDT Respiratory Rate 98% 03/21/2019 11:43 AM CDT Oxygen Saturation - - Inhaled Oxygen Concentration 94.1 kg (207 lb 6.4 oz) 03/21/2019 11:43 AM CDT Weight 175.3 cm (5' 9") 03/21/2019 11:43 AM CDT Height 30.63 03/21/2019 11:43 AM CDT Body Mass Index documented in this encounter Progress Notes * Win Verduzco MD - 03/21/2019 12:09 PM CDT HISTORY OF PRESENT ILLNESS [place], a 73 y.o. male. Chief Complaint Patient presents with Back Pain Seen at Urgent Care, xrays and Tramadol, told he was in A Fib and had Aortic p laque Subjective The history is provided by the patient. The medical record reflects the History of Present Illness as obtained by myself in discussion with the patient. Back Pain Location: Lumbar spine Quality: Stabbing Onset quality: Gradual Timing: Intermittent Past Medical History: Diagnosis Date HTN (hypertension) Current Outpatient Medications: HYDROcodone-acetaminophen (NORCO) 10-325 mg Tablet, Take 1 Tablet by mouth every 4 hours as needed for Pain, Moderate. Max Daily Amount: 6 Tablets, Disp: 4 0 Tablet, Rfl: 0 amLODIPine (NORVASC) 10 mg tablet, Take 1 Tablet (10 mg) by mouth daily., D isp: 90 Tablet, Rfl: 1 cloNIDine HCl (CATAPRES) 0.2 mg tablet, Take 1 Tablet (0.2 mg) by mouth huma ry 8 hours., Disp: 270 Tablet, Rfl: 1 enalapril (VASOTEC) 20 mg tablet, TAKE 1 TABLET BY MOUTH DAILY., Disp: 90 T ablet, Rfl: 1 furosemide (LASIX) 40 mg tablet, Take 1 Tablet (40 mg) by mouth daily., Dis p: 90 Tablet, Rfl: 1 indomethacin (INDOCIN) 50 mg capsule, Take 1 Capsule (50 mg) by mouth Elisa nuous as needed for Pain, Mild., Disp: 60 Capsule, Rfl: 1 metoprolol tartrate (LOPRESSOR) 100 mg tablet, Take 1 Tablet (100 mg) by mo uth 2 times daily., Disp: 180 Tablet, Rfl: 1 albuterol HFA 90 mcg inhaler, INHALE 2 PUFFS BY MOUTH EVERY 4 TO 6 HOURS NEEDED., Disp: 18 Gram, Rfl: 5 tadalafil (CIALIS) 20 mg tablet, Take 1 Tablet (20 mg) by mouth 1 time debby y as needed for Erectile Dysfunction., Disp: 15 Tablet, Rfl: 3 albuterol (PROVENTIL,VENTOLIN) 5 mg/mL Solution for Nebulization, DIRECT ED IN NEBULIZER Dx COPD., Disp: 60 mL, Rfl: 5 traMADol (ULTRAM) 50 mg tablet, Take 2 Tablet (100 mg) by mouth every 8 nora rs as needed for Pain., Disp: 90 Tablet, Rfl: 1 REVIEW OF SYSTEMS Review of Systems Constitutional: Negative. HENT: Negative. Eyes: Negative. Respiratory: Positive for shortness of breath. Cardiovascular: Positive for palpitations. Gastrointestinal: Negative. Endocrine: Negative. Genitourinary: Negative. Musculoskeletal: Positive for back pain. Skin: Negative. Allergic/Immunologic: Negative. Neurological: Negative. Hematological: Negative. Psychiatric/Behavioral: Negative. Objective PHYSICAL EXAM BP (!) 152/78 | Pulse (!) 45 | Resp 16 | Ht 5' 9" (1.753 m) | Wt 94.1 kg (20 7 lb 6.4 oz) | SpO2 98% | BMI 30.63 kg/m Physical Exam Constitutional: He is oriented to person, place, and time. He appears well-devel oped and well-nourished. HENT: Head: Normocephalic. Eyes: Pupils are equal, round, and reactive to light. EOM are normal. Neck: Normal range of motion. Neck supple. Cardiovascular: Normal rate and regular rhythm. Murmur heard. irreg rhythm Pulmonary/Chest: Effort normal. He has wheezes. Abdominal: Soft. Bowel sounds are normal. Musculoskeletal: [...] TSHULTRA, THYROIDSTIM, PSA, INR, GLUCOSEF, GLUCOSE, HGBA1C, [place] CROALBUMIN, MALBUR, [id number] Assessment ASSESSMENT and PLAN: Encounter Diagnoses Name Primary? Paroxysmal atrial fibrillation Yes Pain of back and right lower extremity Panlobular emphysema Referral of patient Orders Placed This Encounter * Referral to Cardiology - Provider Preferences HYDROcodone-acetaminophen (NORCO) 10-325 mg Tablet DISCUSSION: 73-year-old gentleman with a long history of chronic obstructive pulmonary disea se apparently went to urgent care because of his low back pain. He has had no d ecrease in pain of the lower back however while he was there her chest x-ray was done. He has a very irregular rhythm apparently and was told that he had a gre at deal of plaquing in his chest. He was not referred at that time. I did refe r him to Dr. Molina for further evaluation of the atrial fibrillation and gave h im some hydrocodone for the low back pain. We will see him back after he has hi s evaluation by Dr. Molina H Data Unavailable He voiced understanding and agreement with the treatment plan. He understands t he importance of taking his medications and keeping all follow-up appointments. All questions were answered. [id number] will be provided to patient u star check-out. documented in this encounter Plan of Treatment Order Schedule Name Type Priority Associated Diag noses Ordered: 03/21/2019 AMB REFERRAL TO Outpatient Routine Paroxysmal atr ial CARDIOLOGY Referral fibrillation documented as of this encounter Visit Diagnoses Diagnosis Paroxysmal atrial fibrillation - Primar y Atrial fibrillation Pain of back and right lower extremity Panlobular emphysema Other emphysema Referral of patient Referral of patient without examination or treatment documented in this encounter
--- OUTSIDE RECORDS SUMMARY | 2020-04-15 15:10 | XMS REPORT | Encounter Summary ---
Author Author [facility] Organization [facility] Address Unknown Phone Unavailable Care Team Providers Care Mine Car Repairer Name Role Phone Win Verduzco MD PCP Unavailable Reason for Visit * Reason Comments Medication Refill Encounter Details Care Team Description Date Type Department Win Verduzco MD NO ADDRESS ON FILE 09/16/2018 Refill Via [employer] [address] [place] [address] Social History Date Tobacco Use [...] encounter Miscellaneous Notes * Telephone Encounter - Olivia Hall - 09/16/2018 10:35 AM CDT only gave him enough for 10 days. He takes 3 times daily. He would like to ge t a 90 day supply. documented in this encounter Plan of Treatment Not on filedocumented as of this encounter Visit Diagnoses Not on filedocumented in this encounter
--- OUTSIDE RECORDS SUMMARY | 2020-04-15 15:10 | XMS REPORT | Encounter Summary ---
Author Author [facility] Organization [facility] Address Unknown Phone Unavailable Care Team Providers Care Clinical Genetics Laboratory Chief Name Role Phone Win Verduzco MD PCP Unavailable Reason for Visit * Reason Comments Medication Refill Encounter Details Care Team Description Date Type Department Win Verduzco MD NO ADDRESS ON FILE 03/01/2018 Refill Via [employer] [address] [place] [address] [place] [address] Social History Date Tobacco Use [...] Telephone Encounter - Rama Turner CMA - 03/01/2018 10:58 AM CDT Albuterol Inhaler and medication for his breathing machine were sent to [facility] and pt uses [facility]. documented in this encounter Plan of Treatment Not on filedocumented as of this encounter Visit Diagnoses Not on filedocumented in this encounter
--- OUTSIDE RECORDS SUMMARY | 2020-04-15 15:10 | XMS REPORT | Encounter Summary ---
Author Author [facility] Organization [facility] Address Unknown Phone Unavailable Care Team Providers Care Lens Examiner Name Role Phone Win Verduzco MD PCP Unavailable Reason for Visit * Reason Comments Medication Refill Encounter Details Care Team Description Date Type Department Win Verduzco MD NO ADDRESS ON FILE Encounter for preventative adult health care examination (Primary Dx) 05/31/2018 Refill Via [employer] [address] [place] [address] Social History Date Tobacco Use [...] as of this encounter Visit Diagnoses Diagnosis Encounter for preventative adult health care examination - Primary documented in this encounter
--- OUTSIDE RECORDS SUMMARY | 2020-04-15 15:10 | XMS REPORT | Encounter Summary ---
Author Author [facility] Organization [facility] Address Unknown Phone Unavailable Care Team Providers Care Molding Machine Operator Name Role Phone Win Verduzco MD PCP Unavailable Reason for Visit * Reason Comments Hypertension No problems COPD No problems Fatigue COPD slows pt down and he d oesn't like it. Hand Pain Pt states that he has swell ing and pain to joints of hands and fingers Concern of gouty arthritis Encounter Details Care Team Description Date Type Department Win Verduzco MD NO ADDRESS ON FILE Constipation, unspecified constipation t ype (Primary Dx); Panlobular emphysema 02/22/2019 Office Visit Via [employer] [address] [place] [address] Social History Date Tobacco Use [...] Signs Reading Time Taken Comments Vital Sign 163/98 02/22/2019 9:55 AM CDT Blood Pressure 71 02/22/2019 9:55 AM CDT Pulse - - Temperature - - Respiratory Rate 97% 02/22/2019 9:55 AM CDT Oxygen Saturation - - Inhaled Oxygen Concentration 97.3 kg (214 lb 6.4 oz) 02/22/2019 9:55 AM CDT Weight 175.3 cm (5' 9") 02/22/2019 9:55 AM CDT Height 31.66 02/22/2019 9:55 AM CDT Body Mass Index documented in this encounter Progress Notes * Win Verduzco MD - 02/22/2019 10:26 AM CDT HISTORY OF PRESENT ILLNESS [place], a 73 y.o. male. Chief Complaint Patient presents with Hypertension No problems COPD No problems Fatigue COPD slows pt down and he doesn't like it. Hand Pain Pt states that he has swelling and pain to joints of hands and fingers Concer n of gouty arthritis Subjective The history is provided by the patient. The medical record reflects the History of Present Illness as obtained by myself in discussion with the patient. Hypertension This is a chronic problem. COPD Fatigue Hand Pain Associated symptoms: fatigue Past Medical History: Diagnosis Date HTN (hypertension) Current Outpatient Prescriptions: amLODIPine (NORVASC) 10 mg tablet, Take 1 [...] tablet, Take 1 Tablet (100 mg) by ga ut 2 times daily., Disp: 180 Tablet, Rfl: 1 albuterol HFA 90 mcg inhaler, INHALE 2 PUFFS BY MOUTH EVERY 4 TO 6 HOURS NEEDED., Disp: 18 Gram, Rfl: 5 tadalafil (CIALIS) 20 mg tablet, Take 1 Tablet (20 mg) by mouth 1 time susan y as needed for Erectile Dysfunction., Disp: 15 Tablet, Rfl: 3 albuterol (PROVENTIL,VENTOLIN) 5 mg/mL Solution for Nebulization, DIRECT ED IN NEBULIZER Dx COPD., Disp: 60 mL, Rfl: 5 [DISCONTINUED] enalapril (VASOTEC) 20 mg tablet, TAKE 1 TABLET BY MOUTH VINEET LY NEED TO BE SEEN BY DOCTOR FOR FURTHER REFILLS, Disp: 15 Tablet, Rfl: 0 [DISCONTINUED] amLODIPine (NORVASC) 10 mg tablet, Take 1 Tablet (10 mg) by mouth daily Pt needs to make an appt before further refills.., Disp: 15 Tablet, Rfl: 0 [DISCONTINUED] furosemide (LASIX) 40 mg tablet, TAKE 1 TABLET BY MOUTH SUSAN Y, Disp: 60 Tablet, Rfl: 0 [DISCONTINUED] VENTOLIN HFA 90 mcg/actuation inhaler, INHALE 2 PUFFS BY B[place] TH EVERY 4 TO 6 HOURS NEEDED, Disp: 18 Gram, Rfl: 5 [DISCONTINUED] metoprolol tartrate (LOPRESSOR) 100 mg tablet, Take 1 Tablet (100 mg) by mouth 2 times daily Pt due for appt February 2019 to continue receivin g refills,., Disp: 120 Tablet, Rfl: 1 [DISCONTINUED] cloNIDine HCl (CATAPRES) 0.2 mg tablet, Take 1 Tablet (0.2 m g) by mouth every 8 hours., Disp: 270 Tablet, Rfl: 1 [DISCONTINUED] indomethacin (INDOCIN) 50 mg capsule, Take 1 Capsule (50 mg) by mouth Continuous as needed for Pain, Mild., Disp: 60 Capsule, Rfl: 1 traMADol (ULTRAM) 50 mg tablet, Take 2 Tablet (100 mg) by mouth every 8 nora rs as needed for Pain., Disp: 90 Tablet, Rfl: 1 REVIEW OF SYSTEMS Review of Systems Constitutional: Positive for fatigue. HENT: Negative. Eyes: Negative. Respiratory: Negative. Cardiovascular: Negative. Gastrointestinal: Positive for constipation. Endocrine: Negative. Genitourinary: Positive for frequency. Musculoskeletal: Negative. Skin: Negative. Allergic/Immunologic: Negative. Neurological: Negative. Hematological: Negative. Psychiatric/Behavioral: Negative. Objective PHYSICAL EXAM BP (!) 163/98 | Pulse 71 | Ht 5' 9" (1.753 m) | Wt 97.3 kg (214 lb 6.4 oz) | SpO2 97% | BMI 31.66 kg/m Physical Exam Constitutional: He is oriented to person, place, and time. He appears well-devel oped and well-nourished. HENT: Head: Normocephalic. Eyes: Pupils are equal, round, and reactive to light. EOM are normal. Neck: Normal range of motion. Neck supple. Cardiovascular: Normal rate and regular rhythm. Pulmonary/Chest: Effort normal and breath sounds normal. Abdominal: Soft. Bowel sounds are normal. Musculoskeletal: [...] TSHULTRA, THYROIDSTIM, PSA, INR, GLUCOSEF, GLUCOSE, HGBA1C, SC CROALBUMIN, MALBUR, [id number] Assessment ASSESSMENT and PLAN: Encounter Diagnoses Name Primary? Constipation, unspecified constipation type Yes Panlobular emphysema Orders Placed This Encounter amLODIPine (NORVASC) 10 mg tablet cloNIDine HCl (CATAPRES) 0.2 mg tablet enalapril (VASOTEC) 20 mg tablet furosemide (LASIX) 40 mg tablet indomethacin (INDOCIN) 50 mg capsule metoprolol tartrate (LOPRESSOR) 100 mg tablet albuterol HFA 90 mcg inhaler tadalafil (CIALIS) 20 mg tablet DISCUSSION: Discussed constipation, advised use of agents and fiber increase. Also increase fluids. Does not exercise, refilled medications, asked him to follow up for BP and to take pressures at home. Data Unavailable He voiced understanding and agreement with the treatment plan. He understands t he importance of taking his medications and keeping all follow-up appointments. All questions were answered. Lywzy-Vozpv-Efoyuat will be provided to patient u star check-out. documented in this encounter Plan of Treatment Not on filedocumented as of this encounter Visit Diagnoses Diagnosis Constipation, unspecified constipation type - Primary Panlobular emphysema Other emphysema documented in this encounter
--- OUTSIDE RECORDS SUMMARY | 2020-04-15 15:10 | XMS REPORT | Encounter Summary ---
Author Author [facility] Organization [facility] Address Unknown Phone Unavailable Care Team Providers Care Cpr Instructor Name Role Phone Win Verduzco MD PCP Unavailable Reason for Visit * Reason Comments Medication Refill Encounter Details Care Team Description Date Type Department Linda Jiang LPN 07/14/2018 Refill Via [facility] [address] [place] [address] Social History Date Tobacco Use [...]
--- OUTSIDE RECORDS SUMMARY | 2020-04-15 15:10 | XMS REPORT | Encounter Summary ---
Author Author [facility] Organization [facility] Address Unknown Phone Unavailable Care Team Providers Care Booth Cleaner Name Role Phone Win Verduzco MD PCP Unavailable Reason for Visit * Reason Comments Medication Problem Called and advised pt that his Plan D insurance isn't going to pay any longer on his Ventolin HFA 90 MCG Inhal er Encounter Details Care Team Description Date Type Department Win Verduzco MD NO ADDRESS ON FILE Medication Problem (Called and advised p t that his Plan D insurance isn't going to pay any longer on his Ventolin HFA 90 MCG Inhaler) 12/06/2018 Telephone Via [employer] [address] [place] [address] [place] [address] Social History Date Tobacco Use [...] Telephone Encounter - Rama Turner CMA - 12/06/2018 4:57 PM ACCOUNTS PAYABLE ADMINISTRATOR Called pt and advised that his Plan D insurance isn't going to pay for his Jennifer [place] HFA 90 mcg inhaler any longer. Advised pt he would need to find hissss booklet that said what else is covered o r contact his insurance. Pt is to get back with us. UNTS PAYABLE ADMINISTRATOR documented in this encounter Plan of Treatment Not on filedocumented as of this encounter Visit Diagnoses Diagnosis Screening for breast cancer - Primary Breast screening, unspecified documented in this encounter
--- OUTSIDE RECORDS SUMMARY | 2020-04-15 15:10 | XMS REPORT | Encounter Summary ---
Author Author [facility] Organization [facility] Address Unknown Phone Unavailable Care Team Providers Care Chemical Sprayer Name Role Phone Win Verduzco MD PCP Unavailable Reason for Visit * Reason Comments Medication Refill Encounter Details Care Team Description Date Type Department Wni Verduzco MD NO ADDRESS ON FILE 03/31/2018 Refill Via [facility] [address] [place] [address] Social History Date Tobacco Use [...] Telephone Encounter - Rama Turner CMA - 03/31/2018 11:43 AM CDT Pt requesting refill on Clonidine 0.2mg #90 one q 8 hrs. To [facility] documented in this encounter Plan of Treatment Not on filedocumented as of this encounter Visit Diagnoses Not on filedocumented in this encounter
--- OUTSIDE RECORDS SUMMARY | 2020-04-15 15:10 | XMS REPORT | Encounter Summary ---
Author Author [facility] Organization [facility] Address Unknown Phone Unavailable Care Team Providers Care Plant Controller Name Role Phone Win Verduzco MD PCP Unavailable Reason for Visit * Reason Comments Medication Refill Encounter Details Care Team Description Date Type Department Win Verduzco MD NO ADDRESS ON FILE Pain of back and right lower extremity 04/12/2019 Refill Via [facility] [address] [place] [address] Social History Date Tobacco Use [...]
--- OUTSIDE RECORDS SUMMARY | 2020-04-15 15:10 | XMS REPORT | Encounter Summary ---
Author Author [facility] Organization [facility] Address Unknown Phone Unavailable Care Team Providers Care Glass Melt Operator Name Role Phone Win Verduzco MD PCP Unavailable Reason for Visit * Reason Comments Medication Refill Encounter Details Care Team Description Date Type Department Win Verduzco MD NO ADDRESS ON FILE 01/01/2019 Refill Via [employer] [address] [place] [address] Social History Date Tobacco Use [...] Telephone Encounter - Rama Turner CMA - 01/01/2019 3:10 PM BRAND COMMUNICATIONS MANAGER Pt needs to make an appt this month to continue receiving refills. D COMMUNICATIONS MANAGER documented in this encounter Plan of Treatment Not on filedocumented as of this encounter Visit Diagnoses Not on filedocumented in this encounter
--- OUTSIDE RECORDS SUMMARY | 2020-04-15 15:10 | XMS REPORT | Encounter Summary ---
Author Author [facility] Organization [facility] Address Unknown Phone Unavailable Care Team Providers Care Manufacturing Electrician Name Role Phone Win Verduzco MD PCP Unavailable Reason for Visit * Reason Comments Medication Refill Encounter Details Care Team Description Date Type Department Linda Jiang LPN Medication Refill 07/14/2018 Patient Via [email or web address] [address] [email or web address] [address] Social History Date Tobacco Use [...] encounter Miscellaneous Notes * Telephone Encounter - Linda Jiang LPN - 07/14/2018 5:58 PM CDT Per Jose Miguel childers was rejected through [employer] Per keon Jordan to change to sildenafil with [facility] if patient agrees. Contacted pt, he stated he would like to try the sildenafil. Rx sent to jaqui [facility], pt notified. documented in this encounter Plan of Treatment Not on filedocumented as of this encounter Visit Diagnoses Diagnosis Erectile dysfunction, unspecified erect ile dysfunction type - Primary documented in this encounter
--- OUTSIDE RECORDS SUMMARY | 2020-04-15 15:10 | XMS REPORT | Encounter Summary ---
Author Author [facility] Organization [facility] Address Unknown Phone Unavailable Care Team Providers Care Urologist Name Role Phone Win Verduzco MD PCP Unavailable Reason for Visit * Reason Comments Medication Refill Wants his Hydrocodone 10/32 5 RX, Was talked about at visit 02/22/18 but didn't end up with. Encounter Details Care Team Description Date Type Department Win Verduzco MD NO ADDRESS ON FILE Medication Refill (Wants his Hydrocodone 10/325 RX, Was talked about at visit 02/22/18 but didn't end up with.) 03/01/2018 Telephone Via [facility] [address] [place] [address] Social History Date Tobacco [...] Encounter - Rama Turner CMA - 03/01/2018 11:09 AM CDT Pt states that he was to get script for his Hydrocodone 10/325 when he was here 02/22/18. Dr Verduzco advised Hydrocodone 10/325 #60 one q 8 hrs prn pain. * Telephone Encounter - Olivia Hall - 03/01/2018 9:36 AM CDT He said that when he was in last week sent his scripts to pharmacy however t hey say they didn't get them. documented in this encounter Plan of Treatment Not on filedocumented as of this encounter Visit Diagnoses Not on filedocumented in this encounter
--- OUTSIDE RECORDS SUMMARY | 2020-04-15 15:10 | XMS REPORT | Encounter Summary ---
Author Author [facility] Organization [facility] Address Unknown Phone Unavailable Care Team Providers Care Cigarette And Filter Chief Inspector Name Role Phone Win Verduzco MD PCP Unavailable Reason for Visit * Reason Comments Medication Refill Encounter Details Care Team Description Date Type Department Win Verduzco MD NO ADDRESS ON FILE Pain of back and right lower extremity 04/11/2019 Refill Via [facility] [address] [place] [address] Social History Date Tobacco Use [...]
--- OUTSIDE RECORDS SUMMARY | 2020-04-15 15:11 | XMS REPORT | Encounter Summary ---
Author Author [facility], [place], [place], [place], [facility] Organization [facility], [employer], [place], [facility] Address Unknown Phone Unavailable Care Team Providers Care Workforce Development Vice President Name Role Phone Win Verduzco MD PCP Unavailable Reason for Visit * Reason Comments Medication Refill Encounter Details Care Team Description Date Type Department Win Verduzco MD NO ADDRESS ON FILE 10/24/2019 Refill Via [facility] [employer] [address] [place] [address] Social History Date Tobacco Use Types Packs/Day Years Used Quit: 06/29/2009 Former Smoker Cigarettes 1 50 Smokeless Tobacco: Former Chew User Drinks/Week oz/Week Comments Alcohol Use Not Currently Sex Assigned at Date Recorded Not on file Industry Job Start Date Occupation Not on file Not on file Not on file Travel End Travel History Travel Start No recent travel history available. documented as of this encounter Plan of Treatment Not on filedocumented as of this encounter Visit Diagnoses Not on filedocumented in this encounter
--- OUTSIDE RECORDS SUMMARY | 2020-04-15 15:11 | XMS REPORT | Encounter Summary ---
Author Author [facility], [place], [place], [place], [facility] Organization [facility], [employer], [place], [facility] Address Unknown Phone Unavailable Care Team Providers Care Hydropulper Name Role Phone Win Verduzco MD PCP Unavailable Reason for Visit * Reason Comments Medication Refill Encounter Details Care Team Description Date Type Department Win Verduzco MD NO ADDRESS ON FILE Other chronic pain 11/16/2019 Refill Via [facility] [address] [place] [address] [address] Social History Date Tobacco Use [...] as of this encounter Visit Diagnoses Diagnosis Other chronic pain documented in this encounter
--- OUTSIDE RECORDS SUMMARY | 2020-04-15 15:11 | XMS REPORT | Encounter Summary ---
Author Author [facility] [place], [place], [place], [facility] Organization [facility], [employer], [place], [place], [facility] Address Unknown Phone Unavailable Care Team Providers Care Ceo Ziff Davis Name Role Phone Win Verduzco MD PCP Unavailable Reason for Visit * Reason Comments Post Hospital Check Pt states that he has been feeling better the last two days with the COPD after 2 days of being in hospital\\ Back Pain Chronic Encounter Details Care Team Description Date Type Department Win Verduzco MD NO ADDRESS ON FILE Benign hypertension (Primary Dx); Chronic obstructive pulmonary disease, unspecified COPD type 11/15/2019 Office Visit Via [facility] [address] [place] [address] Social History Date Tobacco Use [...] Signs Reading Time Taken Comments Vital Sign 117/50 11/15/2019 2:25 PM SERVICE DESK SPECIALIST Blood Pressure 51 11/15/2019 2:25 PM SERVICE DESK SPECIALIST Pulse - - Temperature - - Respiratory Rate 95% 11/15/2019 2:25 PM SERVICE DESK SPECIALIST Oxygen Saturation - - Inhaled Oxygen Concentration 98.8 kg (217 lb 14.4 oz) 11/15/2019 2:25 PM SERVICE DESK SPECIALIST Weight 174 cm (5' 8.5") 11/15/2019 2:25 PM SERVICE DESK SPECIALIST Height 32.65 11/15/2019 2:25 PM SERVICE DESK SPECIALIST Body Mass Index documented in this encounter Progress Notes * Win Verduzco MD - 11/15/2019 2:41 PM SERVICE DESK SPECIALIST Patient here for multiple refill. Voiced no other complaints. Advised patient to follow up in 3 months. ICE DESK SPECIALIST documented in this encounter Plan of Treatment Not on filedocumented as of this encounter Visit Diagnoses Diagnosis Benign hypertension - Primary Essential hypertension, benign Chronic obstructive pulmonary disease, unspecified COPD type documented in this encounter
--- OUTSIDE RECORDS SUMMARY | 2020-04-15 15:11 | XMS REPORT | Encounter Summary ---
Author Author [facility], [place], [place], [place], [facility] Organization [facility], [place], [place], [place], [facility] Address Unknown Phone Unavailable Care Team Providers Care Engine Pilot Name Role Phone Win Verduzco MD PCP Unavailable Reason for Visit * Reason Comments Medication Refill Albuterol ampules for Nebul izer Encounter Details Care Team Description Date Type Department Win Verduzco MD NO ADDRESS ON FILE Medication Refill (Albuterol ampules for Nebulizer) 10/26/2019 Telephone Via [facility] [address] [place] [place] [address] Social History Date Tobacco Use [...] Telephone Encounter - Rama Turner CMA - 10/26/2019 2:12 PM [employer] SERVICE TECHNICIAN Corrected Script for #120 every 6 hour and as needed on the administration. SERVICE TECHNICIAN documented in this encounter Plan of Treatment Not on filedocumented as of this encounter Visit Diagnoses Not on filedocumented in this encounter
--- OUTSIDE RECORDS SUMMARY | 2020-04-15 15:11 | XMS REPORT | Encounter Summary ---
Author Author [facility] Organization [facility] Address Unknown Phone Unavailable Care Team Providers Care Cemetery Counselor Name Role Phone Win Verduzco MD PCP Unavailable Encounter Details Care Team Description Date Type Department Jennifer Guzman RN 01/04/2017 Abstract Via [facility] [address] [place] [address] Social History Date Tobacco Use Types Packs/Day Years Used Quit: 01/13/2011 Former Smoker Sex Assigned at Date Recorded Not on file Industry Job Start Date Occupation Not on file Not on file Not on file Travel End Travel History Travel Start No recent travel history available. documented as of this encounter Plan of Treatment Not on filedocumented as of this encounter Visit Diagnoses Not on filedocumented in this encounter
--- OUTSIDE RECORDS SUMMARY | 2020-04-15 15:11 | XMS REPORT | Encounter Summary ---
Author Author [facility], [place], [place], [place], [facility] Organization [facility], [employer], [place], [facility] Address Unknown Phone Unavailable Care Team Providers Care Auto Bumper Mechanic Name Role Phone Win Verduzco MD PCP Unavailable Reason for Visit * Reason Comments Medication Refill Encounter Details Care Team Description Date Type Department Win Verduzco MD NO ADDRESS ON FILE 10/25/2019 Refill Via [facility] [address] [place] [address] Social History Date Tobacco Use [...]
--- OUTSIDE RECORDS SUMMARY | 2020-04-15 15:11 | XMS REPORT | Encounter Summary ---
Author [facility] [place], [place], [facility] Organization [facility] [place], [place], [facility] Address Unknown Phone Unavailable Care Team Providers Care Kiln Tender Name Role Phone Win Verduzco MD PCP Unavailable Reason for Visit * Reason Comments LOW BACK PAIN Chronic low back pain and n eeds refill on Hydrocodone Post Hospital Check 3 times since May 2019 COPD Known Pt is being follow ed by Dr Ochoa and Dr Molina Advised O2 2 LPM most of the time. Going to start Pulmonary Rehab next month Irregular Heart Beat off and on Pt has hand Hea rt Cath, Stress Test and Cardiac Valve check via scope Leg Swelling Bilateral which is better w hen he first gets up Foot Swelling Bilateral which is better w hen he first gets up and gets worse as the day goes on. Encounter Details Care Team Description Date Type Department Win Verduzco MD NO ADDRESS ON FILE Chronic obstructive pulmonary disease, u nspecified COPD type (Primary Dx); Other chronic pain 10/12/2019 Office Visit Via [facility] [address] [place] [address] [place] [address] Social History Date Tobacco Use [...] Signs Reading Time Taken Comments Vital Sign 168/78 10/12/2019 11:22 AM SURVEILLANCE SENSOR OPERATOR Blood Pressure 49 10/12/2019 11:22 AM SURVEILLANCE SENSOR OPERATOR Pulse - - Temperature - - Respiratory Rate 94% 10/12/2019 11:22 AM SURVEILLANCE SENSOR OPERATOR Oxygen Saturation - - Inhaled Oxygen Concentration 99.7 kg (219 lb 12.8 oz) 10/12/2019 11:22 AM SURVEILLANCE SENSOR OPERATOR Weight 174 cm (5' 8.5") 10/12/2019 11:22 AM SURVEILLANCE SENSOR OPERATOR Height 32.93 10/12/2019 11:22 AM SURVEILLANCE SENSOR OPERATOR Body Mass Index documented in this encounter Progress Notes * Win Verduzco MD - 10/12/2019 12:57 PM SURVEILLANCE SENSOR OPERATOR Recent 3 rd hospitalization for COPD, now return for folow up from hospital visi t. Chest with some wheezing, multiple areas of arms with ecchymoses. Will ne ed O2 furnace helper and asked him to go to vendor and discuss with them about insura nce and then get back withus. EILLANCE SENSOR OPERATOR documented in this encounter Plan of Treatment Not on filedocumented as of this encounter Visit Diagnoses Diagnosis Chronic obstructive pulmonary disease, unspecified COPD type - Primary Other chronic pain documented in this encounter
--- OUTSIDE RECORDS SUMMARY | 2020-04-15 15:11 | XMS REPORT | Encounter Summary ---
Author Author [facility] Organization [facility] Address Unknown Phone Unavailable Care Team Providers Care Physical Therapy Professor Name Role Phone Win Verduzco MD PCP Unavailable Reason for Visit * Reason Comments question for nurse Encounter Details Care Team Description Date Type Department Win Verduzco MD NO ADDRESS ON FILE question for nurse 01/14/2017 Telephone Via [employer] [address] [place] [address] Social History Date Tobacco Use Types Packs/Day Years Used Quit: 01/13/2011 Former Smoker Comments: 50pack year hx Sex Assigned at Date Recorded Not on file Industry Job Start Date Occupation Not on file Not on file Not on file Travel End Travel History Travel Start No recent travel history available. documented as of this encounter Miscellaneous Notes * Telephone Encounter - Rama Turner CMA - 01/15/2017 8:22 AM WAREHOUSE ORDER FILLER Pt states pharmacy wouldn't fill gout medications but didn't know why. Advised pt to call back and see if it just needed a PA or if he was out of refills. If so he needed to have them send over for a refill so we could have Dr Luba michele on filling it. HOUSE ORDER FILLER documented in this encounter Plan of Treatment Not on filedocumented as of this encounter Visit Diagnoses Not on filedocumented in this encounter
--- OUTSIDE RECORDS SUMMARY | 2020-04-15 15:11 | XMS REPORT | Encounter Summary ---
Author Author [facility], [place], [place], [place], [facility] [place][Note 2] Organization [facility], [place], [place], [facility] [place][Note 2] Address Unknown Phone Unavailable Care Team Providers Care Doughnut Icer Machine Name Role Phone Win Verduzco MD PCP Unavailable Reason for Visit * Reason Comments Medication Refill Encounter Details Care Team Description Date Type Department Win Verduzco MD NO ADDRESS ON FILE 11/22/2019 Refill Via [employer] [address] [place] [address] Social History Date Tobacco Use [...]
--- OUTSIDE RECORDS SUMMARY | 2020-04-15 15:11 | XMS REPORT | Encounter Summary ---
Author Author [facility] Organization [facility] Address Unknown Phone Unavailable Care Team Providers Care Shorts Sifter Name Role Phone Win Verduzco MD PCP Unavailable Encounter Details Care Team Description Date Type Department Win Verduzco MD NO ADDRESS ON FILE 11/20/2016 Abstract Via [employer] [address] [place] [phone] Social History Date Tobacco Use Types Packs/Day [...]
--- OUTSIDE RECORDS SUMMARY | 2020-04-15 15:11 | XMS REPORT | Encounter Summary ---
Author Author [facility] Organization [facility] Address Unknown Phone Unavailable Care Team Providers Care Turntable Engineer Name Role Phone Win Verduzco MD PCP Unavailable Reason for Visit * Reason Comments Back Pain Chronic lower back pain for 10 years and has gotten worse over the last year. Last MRI 10+yrs ago Medication Refill indocin 50mg and Albuterol for Nebulizer Back Pain Tramadol 50 mg didn't do an ything for the pain Encounter Details Care Team Description Date Type Department Win Verduzco MD NO ADDRESS ON FILE Chronic bilateral low back pain without sciatica (Primary Dx); Idiopathic gout, unspecified chronicity, unspecified site; DDD (degenerative disc disease), lumbosacral 01/26/2017 Office Visit Via [facility] [place] [address] Social History Date Tobacco Use [...] Signs Reading Time Taken Comments Vital Sign 142/79 01/26/2017 9:52 AM MULTIMEDIA TEACHER Blood Pressure 55 01/26/2017 9:52 AM MULTIMEDIA TEACHER Pulse - - Temperature - - Respiratory Rate - - Oxygen Saturation - - Inhaled Oxygen Concentration 107.5 kg (237 lb) 01/26/2017 9:52 AM MULTIMEDIA TEACHER Weight - - Height 34.01 01/05/2017 10:51 AM MULTIMEDIA TEACHER Body Mass Index documented in this encounter Progress Notes * Win Verduzco MD - 01/26/2017 10:53 AM MULTIMEDIA TEACHER SUBJECTIVE: [place] is a 71 y.o. male who complains of low back pain for 10 years, po sitional with bending or lifting, without radiation down the legs. Precipitating factors: none recalled by the patient. Prior history of back problems: recurrent self limited episodes of low back pain in the past and previous osteoarthritis of lumbar spine. There is no numbness in the legs. OBJECTIVE: Visit Vitals BP (!) 142/79 Pulse (!) 55 Wt 107.5 kg (237 lb) BMI 34.01 kg/m2 Patient appears to be in mild to moderate pain, antalgic gait noted. Lumbosacral spine area reveals no local tenderness or mass. Painful and reduced LS ROM not ed. Straight leg raise is negative at 45 degrees on bilateral. DTR's, motor stre ngth and sensation normal, including heel and toe gait. Peripheral pulses are p alpable. X-Ray: not indicated. ASSESSMENT: lumbar strain and osteoarthritis of lumbo-sacral spine PLAN: For acute pain, rest, intermittent application of heat (do not sleep on heating pad), analgesics and muscle relaxants are recommended. Discussed longer term matt atment plan of prn NSAID's and discussed a home back care exercise program with flexion exercise routine. Proper lifting with avoidance of heavy lifting discuss ed. Consider Physical Therapy and XRay studies if not improving. Call or return to clinic prn if these symptoms worsen or fail to improve as anticipated. IMEDIA TEACHER documented in this encounter Plan of Treatment Not on filedocumented as of this encounter Visit Diagnoses Diagnosis Chronic bilateral low back pain without sciatica - Primary Idiopathic gout, unspecified chronicity , unspecified site DDD (degenerative disc disease), lumbos acral Degeneration of lumbar or lumbosacral i ntervertebral disc documented in this encounter
--- OUTSIDE RECORDS SUMMARY | 2020-04-15 15:11 | XMS REPORT | Encounter Summary ---
Author Author [facility] Organization [facility] Address Unknown Phone Unavailable Care Team Providers Care Qual Research Manager Name Role Phone Win Verduzco MD PCP Unavailable Reason for Visit * Reason Comments Back Pain Oxygen reading 86% Encounter Details Care Team Description Date Type Department Win Verduzco MD NO ADDRESS ON FILE Chronic bilateral low back pain without sciatica (Primary Dx); Idiopathic gout, unspecified chronicity, unspecified site; DDD (degenerative disc disease), lumbosacral 05/11/2017 Office Visit Via [employer] [address] [place] [phone] Social History Date Tobacco Use Types Packs/Day [...] Signs Reading Time Taken Comments Vital Sign 155/80 05/11/2017 2:00 PM CDT Blood Pressure 55 05/11/2017 2:00 PM CDT Pulse - - Temperature - - Respiratory Rate 86% 05/11/2017 2:00 PM CDT Oxygen Saturation - - Inhaled Oxygen Concentration 103 kg (227 lb) 05/11/2017 2:00 PM CDT Weight 172.7 cm (5' 8") 05/11/2017 2:00 PM CDT Height 34.52 05/11/2017 2:00 PM CDT Body Mass Index documented in this encounter Progress Notes * Win Verduzco MD - 05/11/2017 2:41 PM CDT HISTORY OF PRESENT ILLNESS [place], a 71 y.o. male. Chief Complaint Patient presents with Back Pain Oxygen reading 86% Subjective The history is provided by the patient. Back Pain Location: Thoracic spine and lumbar spine Quality: Stabbing and stiffness Pain severity: Moderate Pain is: Worse during the day Onset quality: Gradual Past Medical History: Diagnosis Date HTN (hypertension) Current Outpatient Prescriptions: indomethacin (INDOCIN) 50 mg capsule, Take 1 Capsule (50 mg) by mouth 3 farheen es daily., Disp: 30 Capsule, Rfl: 1 HYDROcodone-ibuprofen (VICOPROFEN) 7.5-200 mg Tablet, Every 6 hrs as needed ., Disp: 60 Tablet, Rfl: 0 traMADol (ULTRAM) 50 mg tablet, Take 2 Tablet (100 mg) by mouth every 8 nora rs as needed for Pain., Disp: 90 Tablet, Rfl: 1 enalapril (VASOTEC) 20 mg tablet, TAKE 1 TABLET BY MOUTH EVERY DAY, Disp: 3 0 Tablet, Rfl: 2 metoprolol tartrate (LOPRESSOR) 100 mg tablet, TAKE 1 TABLET BY MOUTH TWICE DAILY, Disp: 60 Tablet, Rfl: 2 amLODIPine (NORVASC) 10 mg tablet, TAKE 1 TABLET BY MOUTH EVERY DAY, Disp: 30 Tablet, Rfl: 2 cloNIDine HCl (CATAPRES) 0.2 mg tablet, TAKE 1 TABLET BY MOUTH EVERY 8 HOUR S, Disp: 90 Tablet, Rfl: 2 furosemide (LASIX) 40 mg tablet, TAKE 1 TABLET BY MOUTH EVERY DAY, Disp: 30 Tablet, Rfl: 2 Tadalafil (CIALIS) 5 mg tablet, Take 5 mg by mouth 1 time daily as needed f or Erectile Dysfunction., Disp: , Rfl: indomethacin (INDOCIN) 50 mg capsule, Take 50 mg by mouth Continuous as nee ded for Pain, Mild., Disp: , Rfl: albuterol (PROVENTIL,VENTOLIN) 5 mg/mL Solution for Nebulization, Take 2.5 mg by inhalation every 8 hours as needed for Shortness of Breath., Disp: , Rfl: albuterol HFA 90 mcg inhaler, Take 2 Puffs by inhalation Continuous as need ed for Shortness of Breath., Disp: , Rfl: REVIEW OF SYSTEMS Review of Systems Constitutional: Negative. HENT: Negative. Eyes: Negative. Respiratory: Negative. Cardiovascular: Negative. Gastrointestinal: Negative. Endocrine: Negative. Genitourinary: Negative. Musculoskeletal: Positive for back pain. Marked changes of arthritis of hands , complains of arthritis of low back Skin: Negative. Allergic/Immunologic: Negative. Neurological: Negative. Hematological: Negative. Psychiatric/Behavioral: Negative. Objective PHYSICAL EXAM BP (!) 155/80 | Pulse (!) 55 | Ht 5' 8" (1.727 m) | Wt 103 kg (227 lb) | SpO2 (! ) 86% | BMI 34.52 kg/m2 Physical Exam Constitutional: He is oriented to person, place, and time. He appears well-devel oped and well-nourished. HENT: Head: Normocephalic. Eyes: EOM are normal. Pupils are equal, round, and reactive to light. Neck: Normal range of motion. Neck supple. Cardiovascular: Normal rate and regular rhythm. Pulmonary/Chest: Effort normal and breath sounds normal. Abdominal: Soft. Bowel sounds are normal. Musculoskeletal: Normal range of motion. MP and PIP change of fingers of both hands. Neurological: He is alert and oriented to person, place, and time. Skin: Skin is warm and dry. No results found for: WBC, HGB, HGBPOC, HCT, HCTPOC, PLT, MCV, ESR, ESRPOC, CHOL TOT, HDL, LDLCALC, LDLDIRECT, TRIGLYCERIDE, ALT, AST, NA, K, KPOC, CL, CO2, CREA T, BUN, GFR, TSH, TSHULTRA, THYROIDSTIM, PSA, INR, GLUCOSEF, GLUCOSE, HGBA1C, [place] CROALBUMIN, MALBUR, [id number] Assessment ASSESSMENT and PLAN: Encounter Diagnoses Name Primary? Chronic bilateral low back pain without sciatica Yes Idiopathic gout, unspecified chronicity, unspecified site DDD (degenerative disc disease), lumbosacral Orders Placed This Encounter MRI LUMBAR WO CONTRAST DISCUSSION: Will obtain MRI of L spine. Severe pain of low back especially when awaking and getting up in AM Data Unavailable He voiced understanding and agreement with the treatment plan. He understands t he importance of taking his medications and keeping all follow-up appointments. All questions were answered. [id number] will be provided to patient u star [...]
--- OUTSIDE RECORDS SUMMARY | 2020-04-15 15:11 | XMS REPORT | Encounter Summary ---
Author Author [facility] Organization [facility] Address Unknown Phone Unavailable Care Team Providers Care Infection Control Rn Name Role Phone Win Verduzco MD PCP Unavailable Encounter Details Care Team Description Date Type Department Win Verduzco MD NO ADDRESS ON FILE 01/26/2017 Orders Only Via [email or web address] [address] [place] [phone] Social History Date Tobacco Use Types Packs/Day [...]
--- OUTSIDE RECORDS SUMMARY | 2020-04-15 15:11 | XMS REPORT | Encounter Summary ---
Author Author [facility], [place], [place], [place], [facility] Organization [facility], [email or web address], [place], [facility] Address Unknown Phone Unavailable Care Team Providers Care Gem Stone Cutter Name Role Phone Win Verduzco MD PCP Unavailable Reason for Visit * Reason Comments Medication Refill Encounter Details Care Team Description Date Type Department Win Verduzco MD NO ADDRESS ON FILE 10/18/2019 Refill Via [email or web address] [address] [place] [place] [address] Social History Date Tobacco Use [...]
--- OUTSIDE RECORDS SUMMARY | 2020-04-15 15:11 | XMS REPORT | Encounter Summary ---
Author Author [facility], [place], [place], [place], [place] Organization [facility], [place] [facility], [place], [place] Address Unknown Phone Unavailable Care Team Providers Care Roadability Machine Operator Name Role Phone Win Verduzco MD PCP Unavailable Reason for Visit * Reason Comments Medication Refill Encounter Details Care Team Description Date Type Department Win Verduzco MD NO ADDRESS ON FILE 10/12/2019 Refill Via [email or web address] [address] [place] [address] Social History Date Tobacco Use [...]
--- OUTSIDE RECORDS SUMMARY | 2020-04-15 15:11 | XMS REPORT | Encounter Summary ---
Author Author [facility] Organization [facility] Address Unknown Phone Unavailable Care Team Providers Care Production Supervisor Off Shift Name Role Phone Win Verduzco MD PCP Unavailable Encounter Details Care Team Description Date Type Department Nikki Jean-Baptiste ARNP NO ADDRESS ON FILE 11/27/2016 Abstract Via [employer] [address] [place] [phone] Social History Date Tobacco Use Types Packs/Day [...]
--- OUTSIDE RECORDS SUMMARY | 2020-04-15 15:11 | XMS REPORT | Encounter Summary ---
Author Author [facility] Organization [facility] Address Unknown Phone Unavailable Care Team Providers Care Helper Driver Name Role Phone Win Verduzco MD PCP Unavailable Reason for Visit * Reason Comments Medication Refill Chronic back pain, insuranc e denied pain medication. Encounter Details Care Team Description Date Type Department Win Verduzco MD NO ADDRESS ON FILE Chronic bilateral low back pain without sciatica 01/05/2017 Office Visit Via [facility] [place] [address] Social History Date Tobacco Use [...] Signs Reading Time Taken Comments Vital Sign 157/89 01/05/2017 10:51 AM RISK CONTROL CONSULTANT Blood Pressure 56 01/05/2017 10:51 AM RISK CONTROL CONSULTANT Pulse 36.1 C (96.9 F) 01/05/2017 10:51 AM RISK CONTROL CONSULTANT Temperature 12 01/05/2017 10:51 AM RISK CONTROL CONSULTANT Respiratory Rate - - Oxygen Saturation - - Inhaled Oxygen Concentration 111.6 kg (246 lb) 01/05/2017 10:51 AM RISK CONTROL CONSULTANT Weight 177.8 cm (5' 10") 01/05/2017 10:51 AM RISK CONTROL CONSULTANT Height 35.3 01/05/2017 10:51 AM RISK CONTROL CONSULTANT Body Mass Index documented in this encounter Progress Notes * Win Verduzco MD - 01/05/2017 11:27 AM RISK CONTROL CONSULTANT Chronic low back pain requiring freq pain meds. CONTROL CONSULTANT documented in this encounter Plan of Treatment Not on filedocumented as of this encounter Visit Diagnoses Diagnosis Chronic bilateral low back pain without sciatica documented in this encounter
--- OUTSIDE RECORDS SUMMARY | 2020-04-15 15:11 | XMS REPORT | Encounter Summary ---
Author Author [facility] Organization [facility] Address Unknown Phone Unavailable Care Team Providers Care Nonprofit Manager Name Role Phone Win Verduzco MD PCP Unavailable Reason for Visit * Reason Comments Medication Refill needs a script for O2 medication wants pain medication for b ack pain pulseox reading O2 is at 96% Encounter Details Care Team Description Date Type Department Win Verduzco MD NO ADDRESS ON FILE Chronic bilateral low back pain without sciatica (Primary Dx); Idiopathic gout, unspecified chronicity, unspecified site; Panlobular emphysema 06/15/2017 Office Visit Via [employer] [address] [place] [phone] Social History Date Tobacco Use Types Packs/Day [...] Signs Reading Time Taken Comments Vital Sign 142/69 06/15/2017 9:22 AM CDT Blood Pressure 45 06/15/2017 9:22 AM CDT Pulse - - Temperature - - Respiratory Rate 96% 06/15/2017 9:22 AM CDT Oxygen Saturation - - Inhaled Oxygen Concentration 101.6 kg (224 lb) 06/15/2017 9:22 AM CDT Weight 172.7 cm (5' 8") 06/15/2017 9:22 AM CDT Height 34.06 06/15/2017 9:22 AM CDT Body Mass Index documented in this encounter Progress Notes * Win Verduzco MD - 06/15/2017 9:54 AM CDT HISTORY OF PRESENT ILLNESS [place], a 71 y.o. male. Chief Complaint Patient presents with Medication Refill needs a script for O2 medication wants pain medication for back pain pulseox reading O2 is at 96% Subjective The history is provided by the patient. Medication Refill This is a chronic problem. The current episode started more than 1 week ago. Per tinent negatives include no abdominal pain and no shortness of breath. Past Medical History: Diagnosis Date HTN (hypertension) Current Outpatient Prescriptions: meloxicam (MOBIC) 15 mg tablet, Take 1 Tablet (15 mg) by mouth daily., Disp : 30 Tablet, Rfl: 3 furosemide (LASIX) 40 mg tablet, TAKE 1 TABLET BY MOUTH EVERY DAY, Disp: 30 Tablet, Rfl: 2 cloNIDine HCl (CATAPRES) 0.2 mg tablet, TAKE 1 TABLET BY MOUTH EVERY 8 HOUR S, Disp: 90 Tablet, Rfl: 2 amLODIPine (NORVASC) 10 mg tablet, TAKE 1 TABLET BY MOUTH EVERY DAY, Disp: 30 Tablet, Rfl: 2 enalapril (VASOTEC) 20 mg tablet, TAKE 1 TABLET BY MOUTH EVERY DAY, Disp: 3 0 Tablet, Rfl: 2 albuterol HFA 90 mcg inhaler, Take 2 Puffs by inhalation Continuous as need ed for Shortness of Breath., Disp: , Rfl: metoprolol tartrate (LOPRESSOR) 100 mg tablet, TAKE 1 TABLET BY MOUTH TWICE DAILY, Disp: 60 Tablet, Rfl: 2 sildenafil (VIAGRA) 100 mg tablet, Take 1 Tablet (100 mg) by mouth 1 time d aily as needed for Erectile Dysfunction., Disp: 10 Tablet, Rfl: 3 [DISCONTINUED] meloxicam (MOBIC) 15 mg tablet, Take 1 Tablet (15 mg) by rubén th daily., Disp: 15 Tablet, Rfl: 1 traMADol (ULTRAM) 50 mg tablet, [...] and numbness. Objective PHYSICAL EXAM BP (!) 142/69 | Pulse (!) 45 | Ht 5' 8" (1.727 m) | Wt 101.6 kg (224 lb) | SpO2 96% | BMI 34.06 kg/m2 Physical Exam Constitutional: He is oriented [...] are normal. Musculoskeletal: Normal range of motion. Significant decrease in ROM of angel ds, using Mobic with some help, but does not help his back Neurological: He is alert and oriented to person, place, and time. Skin: Skin is warm and dry. No results found for: WBC, HGB, HGBPOC, HCT, HCTPOC, PLT, MCV, ESR, ESRPOC, CHOL TOT, HDL, LDLCALC, LDLDIRECT, TRIGLYCERIDE, ALT, AST, NA, K, KPOC, CL, CO2, CREA T, BUN, GFR, TSH, TSHULTRA, THYROIDSTIM, PSA, INR, GLUCOSEF, GLUCOSE, HGBA1C, [place] CROALBUMIN, MALBUR, [id number] Assessment ASSESSMENT and PLAN: Encounter Diagnoses Name Primary? 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 Data Unavailable He voiced understanding and agreement with the treatment plan. He understands t he importance of taking his medications and keeping all follow-up appointments. All questions were answered. [id number] will be provided to patient u star check-out. documented in this encounter Plan of Treatment Not on filedocumented as of this encounter Visit Diagnoses Diagnosis Chronic bilateral low back pain without sciatica - Primary Idiopathic gout, unspecified chronicity , unspecified site Panlobular emphysema Other emphysema documented in this encounter
--- OUTSIDE RECORDS SUMMARY | 2020-04-15 15:11 | XMS REPORT | Encounter Summary ---
Author Author [facility] Organization [facility] Address Unknown Phone Unavailable Care Team Providers Care Coal Screener Name Role Phone Win Verduzco MD PCP Unavailable Reason for Visit * Reason Comments Medication Refill Encounter Details Care Team Description Date Type Department Win Verduzco MD NO ADDRESS ON FILE 09/08/2017 Refill Via [email or web address] [address] [place] [address] Social History Date Tobacco Use [...]
--- OUTSIDE RECORDS SUMMARY | 2020-04-15 15:11 | XMS REPORT | Encounter Summary ---
Author Author [facility] Organization [facility] Address Unknown Phone Unavailable Care Team Providers Care Commercial Real Estate Associate Name Role Phone Win Verduzco MD PCP Unavailable Reason for Visit * Reason Comments Medication Refill Encounter Details Care Team Description Date Type Department Win Verduzco MD NO ADDRESS ON FILE 08/06/2017 Refill Via [employer] [address] [place] [address] Social History Date Tobacco Use [...]
--- OUTSIDE RECORDS SUMMARY | 2020-04-15 15:11 | XMS REPORT | Encounter Summary ---
Author Author [facility] Organization [facility] Address Unknown Phone Unavailable Care Team Providers Care Meter Tester Polyphase Name Role Phone Win Verduzco MD PCP Unavailable Reason for Visit * Reason Comments Erroneous encounter-disregard Encounter Details Care Team Description Date Type Department Win Verduzco MD NO ADDRESS ON FILE ERRONEOUS ENCOUNTER--DISREGARD (Primary Dx) 11/11/2016 Office Visit Via [employer] [address] [place] [phone] Social History Date Tobacco Use Types Packs/Day Years Used Never Assessed Sex Assigned at Date Recorded Not on file Industry Job Start Date Occupation Not on file Not on file Not on file Travel End Travel History Travel Start No recent travel history available. documented as of this encounter Progress Notes * Win Verduzco MD - 11/27/2016 8:49 AM METER RECORD CLERK Erroneous Encounter: encounter opened in error, closed for administrative reason s. R RECORD CLERK documented in this encounter Plan of Treatment Not on filedocumented as of this encounter Visit Diagnoses Diagnosis ERRONEOUS ENCOUNTER--DISREGARD - Primar y documented in this encounter
--- OUTSIDE RECORDS SUMMARY | 2020-04-15 15:11 | XMS REPORT | Encounter Summary ---
Author Author [facility], [place], [place], [place], [facility] Organization [facility], [employer], [place], [place], [facility] Address Unknown Phone Unavailable Care Team Providers Care Senior Science Consultant Name Role Phone Win Verduzco MD PCP Unavailable Reason for Visit * Reason Comments Medication Refill Medication Refill Encounter Details Care Team Description Date Type Department Win Verduzco MD NO ADDRESS ON FILE Other chronic pain 11/09/2019 Refill Via [employer] [address] [place] [address] Social History Date Tobacco Use [...]
--- OUTSIDE RECORDS SUMMARY | 2020-04-15 15:11 | XMS REPORT | Encounter Summary ---
Author Author [facility] Organization [facility] Address Unknown Phone Unavailable Care Team Providers Care Vending Technician Name Role Phone Win Verduzco MD PCP Unavailable Reason for Visit * Reason Comments Follow Up back ache Encounter Details Care Team Description Date Type Department Win Verduzco MD NO ADDRESS ON FILE Chronic bilateral low back pain without sciatica (Primary Dx) 11/18/2016 Office Visit Via [employer] [address] [place] [address] Social History Date Tobacco Use Types Packs/Day Years Used Quit: 01/13/2011 Former Smoker Sex Assigned at Date Recorded Not on file Industry Job Start Date Occupation Not on file Not on file Not on file Travel End Travel History Travel Start No recent travel history available. documented as of this encounter Last Filed Vital Signs Reading Time Taken Comments Vital Sign 175/85 11/18/2016 10:25 AM WET PROCESS MILLER HEAD Blood Pressure 48 11/18/2016 10:25 AM WET PROCESS MILLER HEAD Pulse - - Temperature - - Respiratory Rate - - Oxygen Saturation - - Inhaled Oxygen Concentration 110.7 kg (244 lb) 11/18/2016 10:25 AM WET PROCESS MILLER HEAD Weight 179.1 cm (5' 10.5") 11/18/2016 10:25 AM WET PROCESS MILLER HEAD Height 34.52 11/18/2016 10:25 AM WET PROCESS MILLER HEAD Body Mass Index documented in this encounter Progress Notes * Win Verduzco MD - 11/18/2016 9:30 AM WET PROCESS MILLER HEAD HISTORY OF PRESENT ILLNESS [place], a 71 y.o. male. Chief Complaint Patient presents with Follow Up back ache Subjective The history is provided by the patient. Past Medical History Diagnosis Date HTN (hypertension) Current Outpatient Prescriptions: traMADol (ULTRAM ER) 300 mg Extended Release 24 hour tablet, Take 1 Tablet (300 mg) by mouth daily., Disp: 30 Tablet, Rfl: 1 amLODIPine (NORVASC) 10 mg tablet, Take 10 mg by mouth daily., Disp: , Rfl: metoprolol tartrate (LOPRESSOR) 100 mg tablet, Take 100 mg by mouth., Disp: , Rfl: cloNIDine HCl (CATAPRES) 0.2 mg tablet, Take 0.2 mg by mouth 3 times daily. , Disp: , Rfl: furosemide (LASIX) 40 mg tablet, Take 40 mg by mouth daily., Disp: , Rfl: indomethacin (INDOCIN) 50 mg capsule, Take 50 mg by mouth Continuous as nee ded for Pain, Mild., Disp: , Rfl: albuterol (PROVENTIL,VENTOLIN) 5 mg/mL Solution for Nebulization, Take 2.5 mg by inhalation every 8 hours as needed for Shortness of Breath., Disp: , Rfl: enalapril (VASOTEC) 20 mg tablet, Take 20 mg by mouth daily., Disp: , Rfl: albuterol HFA 90 mcg inhaler, Take 2 Puffs by inhalation Continuous as need ed for Shortness of Breath., Disp: , Rfl: REVIEW OF SYSTEMS Review of Systems Objective PHYSICAL EXAM Visit Vitals BP (!) 175/85 Pulse (!) 48 Ht 5' 10.5" (1.791 m) Wt 110.7 kg (244 lb) BMI 34.52 kg/m2 Physical Exam Constitutional: He appears well-developed. Musculoskeletal: Low back pain No results found for: WBC, HGB, HGBPOC, HCT, HCTPOC, PLT, MCV, ESR, ESRPOC, CHOL TOT, HDL, LDLCALC, LDLDIRECT, TRIGLYCERIDE, ALT, AST, NA, K, KPOC, CL, CO2, CREA T, BUN, GFR, TSH, TSHULTRA, THYROIDSTIM, PSA, INR, GLUCOSEF, GLUCOSE, HGBA1C, NV CROALBUMIN, MALBUR, [id number] Assessment ASSESSMENT and PLAN: Encounter Diagnosis Name Primary? Chronic bilateral low back pain without sciatica Yes Orders Placed This Encounter traMADol (ULTRAM ER) 300 mg Extended Release 24 hour tablet DISCUSSION: Discussed BP meds, cut back on coffee Data Unavailable He voiced understanding and agreement with the treatment plan. He understands t he importance of taking his medications and keeping all follow-up appointments. All questions were answered. Sdgza-Skrch-Xvmaswz will be provided to patient u stra check-out. PROCESS MILLER HEAD documented in this encounter Plan of Treatment Not on filedocumented as of this encounter Visit Diagnoses Diagnosis Chronic bilateral low back pain without sciatica - Primary documented in this encounter
--- OUTSIDE RECORDS SUMMARY | 2020-04-15 15:11 | XMS REPORT | Encounter Summary ---
Author Author [facility], [place], [place], [place], [facility] Organization [facility], [address], [place], [place], [facility] Address Unknown Phone Unavailable Care Team Providers Care Head Golf Coach Name Role Phone Win Verduzco MD PCP Unavailable Reason for Visit * Reason Comments Medication Refill Medication Refill Encounter Details Care Team Description Date Type Department Win Verduzco MD NO ADDRESS ON FILE Other chronic pain 12/16/2019 Refill Via [employer] [address] [place] [address] Social History Date Tobacco [...]
--- OUTSIDE RECORDS SUMMARY | 2020-04-15 15:11 | XMS REPORT | Encounter Summary ---
Author Author [facility], [place], [place], [place], [facility] Organization [facility], [place], [place], [facility] Address Unknown Phone Unavailable Care Team Providers Care Creasing And Cutting Press Feeder Name Role Phone Win Verduzco MD PCP Unavailable Reason for Visit * Reason Comments Medication Refill Encounter Details Care Team Description Date Type Department Win Verduzco MD NO ADDRESS ON FILE 11/09/2019 Refill Via [employer] [address] [place] [address] Social History Date Tobacco Use [...]
--- OUTSIDE RECORDS SUMMARY | 2020-04-15 15:11 | XMS REPORT | Encounter Summary ---
Author Author [facility], [place], [place], [facility] Organization [facility] [place], [place], [facility] Address Unknown Phone Unavailable Care Team Providers Care Lipstick Molder Name Role Phone Win Verduzco MD PCP Unavailable Reason for Visit * Reason Comments Shortness of Breath and pt states he ran out of Albuteral inhaler and nebulizer medication Hypertension medication refill Pulmonary pt needs mail order and loc al Albuterol. Pt is completely out Encounter Details Care Team Description Date Type Department Win Verduzco MD NO ADDRESS ON FILE Chronic obstructive pulmonary disease, u nspecified COPD type (Primary Dx); Other chronic pain 11/29/2019 Office Visit Via [employer] [address] [place] [address] Social History Date Tobacco Use [...] Signs Reading Time Taken Comments Vital Sign 138/77 11/29/2019 10:03 AM DRILL PRESS OPERATOR HELPER Blood Pressure 48 11/29/2019 10:03 AM DRILL PRESS OPERATOR HELPER Pulse - - Temperature - - Respiratory Rate 93% 11/29/2019 10:03 AM DRILL PRESS OPERATOR HELPER Oxygen Saturation - - Inhaled Oxygen Concentration 99 kg (218 lb 3.2 oz) 11/29/2019 10:03 AM DRILL PRESS OPERATOR HELPER Weight 172.7 cm (5' 8") 11/29/2019 10:03 AM DRILL PRESS OPERATOR HELPER Height 33.18 11/29/2019 10:03 AM DRILL PRESS OPERATOR HELPER Body Mass Index documented in this encounter Progress Notes * Win Verduzco MD - 11/29/2019 12:16 PM DRILL PRESS OPERATOR HELPER Patient here for MEDICAtion refill. Voiced no other complaints. Advised patien t to follow up in 3 months. L PRESS OPERATOR HELPER documented in this encounter Plan of Treatment Not on filedocumented as of this encounter Visit Diagnoses Diagnosis Chronic obstructive pulmonary disease, unspecified COPD type - Primary Other chronic pain documented in this encounter
--- OUTSIDE RECORDS SUMMARY | 2020-04-15 15:11 | XMS REPORT | Encounter Summary ---
Author Author [facility], [place], [place], [place], [facility] Organization [facility], [employer], [place], [place], [facility] Address Unknown Phone Unavailable Care Team Providers Care Route Agent Name Role Phone Win Verduzco MD PCP Unavailable Reason for Visit * Reason Comments Medication Review Pt is on Amlodapine Encounter Details Care Team Description Date Type Department Win Verduzco MD NO ADDRESS ON FILE Medication Review (Pt is on Amlodapine ) 10/18/2019 Telephone Via [employer] [address] [place] [address] Social History Date Tobacco Use [...]
--- OUTSIDE RECORDS SUMMARY | 2020-04-15 15:11 | XMS REPORT | Encounter Summary ---
Author Author [facility] Organization [facility] Address Unknown Phone Unavailable Care Team Providers Care Barge Engineer Name Role Phone Win Verduzco MD PCP Unavailable Reason for Visit * Reason Comments Medication Refill Encounter Details Care Team Description Date Type Department Win Verduzco MD NO ADDRESS ON FILE 12/10/2016 Refill Via [employer] [address] [place] [address] Social History Date Tobacco Use [...]
--- OUTSIDE RECORDS SUMMARY | 2020-04-15 15:11 | XMS REPORT | Encounter Summary ---
Author Author [facility], [place], [place], [place], [employer] Organization [facility], [place], [place], [place], [facility] Address Unknown Phone Unavailable Care Team Providers Care Hand Coper Name Role Phone Win Verduzco MD PCP Unavailable Reason for Visit * Reason Comments Pulmonary Encounter Details Care Team Description Date Type Department Win Verduzco MD NO ADDRESS ON FILE COPD with exacerbation (Primary Dx) 10/11/2019 Office Visit [facility] [employer] [address] [place] [address] Social History Date Tobacco Use Types Packs/Day Years Used Quit: 06/29/2009 Former Smoker Cigarettes 1 50 Drinks/Week oz/Week Comments Alcohol Use Not Currently Sex Assigned at Date Recorded Not on file Industry Job Start Date Occupation Not on file Not on file Not on file Travel End Travel History Travel Start No recent travel history available. documented as of this encounter Progress Notes * Win Verduzco MD - 10/17/2019 9:40 AM CPR INSTRUCTOR SUBJECTIVE: [place] is a 74 y.o. male with cough and shortness of breath for 100 day s. Has been wheezing. Cough is worse at night. Does have some dyspnea with exe rtion. Temperature normal at home. Other symptoms: productive cough. Has been using bronchodialators. Taking fluids well. Patient has a diagnosis of COPD. Past Medical History: Diagnosis Date COPD (chronic obstructive pulmonary disease) Gout HTN (hypertension) Current Outpatient Medications on File Prior to Visit Medication Sig Dispense Refill amLODIPine (NORVASC) 10 mg tablet TAKE 1 TABLET (10 MG) BY MOUTH DAILY. 90 T ablet 0 enalapril (VASOTEC) 20 mg tablet TAKE 1 TABLET BY MOUTH DAILY. 90 Tablet 0 albuterol (PROVENTIL,VENTOLIN) 5 mg/mL Solution for Nebulization DIRECTED IN NEBULIZER Dx COPD. albuterol HFA 90 mcg inhaler Take 2 Puffs by inhalation every 4 hours as nee ded. metoprolol tartrate (LOPRESSOR) 100 mg tablet Take 100 mg by mouth 2 times d aily. No current facility-administered medications on file prior to visit. Social History Tobacco Use Smoking Status Former Smoker Packs/day: 1.00 Years: 50.00 Pack years: 50.00 Types: Cigarettes Last attempt to quit: 06/29/2009 Years since quittin.3 Smokeless Tobacco Former User Types: Chew OBJECTIVE: There were no vitals taken for this visit. General appearance: alert, well appearing, and in no distress. Ears: bilateral TM's and external ear canals normal Nose: normal and patent, no erythema, discharge or polyps Oropharynx: mucous membranes moist, pharynx normal without lesions Neck: supple, no significant adenopathy Lungs: diminshed air movement, bilateral wheezes bilaterally, no rales, no retra ctions CV: RRR no murmer ASSESSMENT: COPD exacerbation, acute PLAN: Albuterol nebulizer treatment given in clinic with improvement in air movement a nd diminishing wheezing. Post treatment pulse ox: 94%. No orders of the defined types were placed in this encounter. Advised to quit smoking. Make follow up appt with regular doctor. Advised to go to ER if develops worsening dyspnea or wheezing. INSTRUCTOR documented in this encounter Plan of Treatment Not on filedocumented as of this encounter Visit Diagnoses Diagnosis COPD with exacerbation - Primary Obstructive chronic bronchitis with exa cerbation documented in this encounter
--- OUTSIDE RECORDS SUMMARY | 2020-04-15 15:11 | XMS REPORT | Encounter Summary ---
Author Author [facility] Organization [facility] Address Unknown Phone Unavailable Care Team Providers Care Hatchery Attendant Name Role Phone Win Verduzco MD PCP Unavailable Reason for Visit * Reason Comments Medication Refill Encounter Details Care Team Description Date Type Department Win Verduzco MD NO ADDRESS ON FILE 06/10/2017 Refill Via [employer] [address] [place] [address] Social History Date Tobacco Use [...]
--- OUTSIDE RECORDS SUMMARY | 2020-04-15 15:11 | XMS REPORT | Encounter Summary ---
Author Author [facility] Organization [facility] Address Unknown Phone Unavailable Care Team Providers Care Engraver Letter Name Role Phone Win Verduzco MD PCP Unavailable Reason for Visit * Reason Comments Medication Refill Encounter Details Care Team Description Date Type Department Win Verduzco MD NO ADDRESS ON FILE 08/24/2017 Refill Via [employer] [address] [place] [address] Social History Date Tobacco Use [...]
--- OUTSIDE RECORDS SUMMARY | 2020-04-15 15:11 | XMS REPORT | Encounter Summary ---
Author Author [facility], [place], [place], [place], [facility] Organization [facility], [place], [place], [place], [facility] Address Unknown Phone Unavailable Care Team Providers Care Scrap Handler Name Role Phone Win Verduzco MD PCP Unavailable Reason for Visit * Reason Comments Medication Refill Refills for when Dr Verduzco is gone Oct 27- Nov 13 Encounter Details Care Team Description Date Type Department Win Verduzco MD NO ADDRESS ON FILE Other chronic pain 10/23/2019 Refill Via [employer] [address] [place] [address] Social History Date Tobacco Use [...] Telephone Encounter - Rama Turner CMA - 10/23/2019 4:36 PM SILICA MIXER OPERATOR Refills for when Dr Verduzco is gone Oct 27- Nov 13 Hydrocodone CA MIXER OPERATOR documented in this encounter Plan of Treatment Not on filedocumented as of this encounter Visit Diagnoses Diagnosis Other chronic pain documented in this encounter
--- OUTSIDE RECORDS SUMMARY | 2020-04-15 15:11 | XMS REPORT | Clinical Summary ---
Author Author [facility], [place], [place], [place], [facility] Organization [facility] [place], [place], [facility] Address Unknown Phone Unavailable Care Team Providers Care Hired Hand Name Role Phone Win Verduzco MD PCP Unavailable Allergies Comments Active Allergy Reactions Severity Noted Date Sulfamethoxazole-Trimetho Unknown 11/10/2016 prim Sulfur Hives 01/05/2017 Medications End Date Status Medication Sig Dispensed Refills Start Date Active acetaminophen (TYLENOL) Take 650 mg 0 325 mg tablet by mouth every 4 hours as needed. Active albuterol HFA 90 mcg INHALE 2 8.5 Gram 3 11/29 inhaler PUFFS BY 9 MOUTH EVERY 4 TO 6 HOURS NEEDED Active albuterol HFA 90 mcg Take 2 Puffs 8.5 Gram 3 11/01 inhaler by inhalation 9 every 4 hours as needed for Shortness of Breath. Active amLODIPine (NORVASC) 10 TAKE 1 TABLET 90 Tablet 0 mg tablet (10 MG) BY 9 MOUTH DAILY. Active enalapril (VASOTEC) 20 mg Take 1 Tablet 90 Tablet 0 tablet (20 mg) by 9 mouth daily. Active apixaban (Eliquis) 5 mg TAKE 1 TABLET 180 Tablet 0 tablet (5 MG) BY 9 MOUTH TWICE DAILY Active furosemide (LASIX) 80 mg Take 1 Tablet 90 Tablet 0 tablet (80 mg) by 9 mouth daily. Active HYDROcodone-acetaminophen TAKE 1 TABLET 40 Tablet 0 (NORCO) 10-325 mg BY MOUTH 9 TabletIndications: Other EVERY FOUR chronic pain HOURS NEEDED FOR PAIN (MAX 6 TABLETS DAILY) Active metoprolol tartrate Take 1 Tablet 180 Tablet 0 11/01 (LOPRESSOR) 100 mg tablet (100 mg) by 9 mouth 2 times daily. Active potassium chloride Take 1 Tablet 30 Tablet 0 11/29 (KLOR-CON) 10 mEq (10 mEq) by 9 Extended Release tablet mouth daily. Active amiodarone (CORDARONE) Take 1 Tablet 30 Tablet 3 1 200 mg tablet (200 mg) by 9 mouth 2 times daily. Active diltiaZEM (CARDIZEM CD) Take 1 30 Capsule 3 120 mg Controlled Capsule (120 9 Delivery 24 hour capsule mg) by mouth daily. Active fluticasone Take 1 Puff 60 Gram 3 propion-salmeterol by inhalation 9 (ADVAIR HFA) 230-21 every 12 mcg/actuation HFA Aerosol hours. Pre Inhaler mixed Active Problems No known active problems Immunizations Name Administration Dates Next Due Influenza Vaccine 2018 Influenza Vaccine High 2018 Dose 65+ Yrs IM Social History Date Tobacco Use Types Packs/Day [...] Comments Vital Sign 138/77 11/29/2019 10:03 AM CUSTOMER SUCCESS ASSOCIATE Blood Pressure 48 11/29/2019 10:03 AM CUSTOMER SUCCESS ASSOCIATE Pulse - - Temperature - - Respiratory Rate 93% 11/29/2019 10:03 AM CUSTOMER SUCCESS ASSOCIATE Oxygen Saturation - - Inhaled Oxygen Concentration 99 kg (218 lb 3.2 oz) 11/29/2019 10:03 AM CUSTOMER SUCCESS ASSOCIATE Weight 172.7 cm (5' 8") 11/29/2019 10:03 AM CUSTOMER SUCCESS ASSOCIATE Height 33.18 11/29/2019 10:03 AM CUSTOMER SUCCESS ASSOCIATE Body Mass Index Plan of Treatment Health Maintenance Due Date Last Done Comments COLORECTAL SCREENING 1997 ZOSTER VACCINE (1 of 2) 1997 PNEUMOCOCCAL VACCINE 65+ 2012 YEARS (1 of 2 - PCV13) INFLUENZA VACCINE 06/30/2019 2018, 018 Results Not on filefrom Last 3 Months Insurance Type Payer Benefit Subscriber ID Effective Phone Address Plan / Dates Group Medicare MEDICARE MEDICARE [id number] 2012- PART A AND Present B Advance Directives For more information, please contact: [phone] Patient Furnace Reliner Explanation Type Date Recorded Advance Directive POA Advance Directive Living Will
--- OUTSIDE RECORDS SUMMARY | 2020-04-15 15:12 | XMS REPORT | Encounter Summary ---
Author Author [facility], [place], [place], [place], [place] Organization [facility], [place], [place], [place], [place] Address Unknown Phone Unavailable Care Team Providers Care Cornetist Name Role Phone Win Verduzco MD PCP Unavailable Reason for Visit * Reason Comments Pulmonary Encounter Details Care Team Description Date Type Department Win Verduzco MD NO ADDRESS ON FILE Pulmonary 10/03/2019 Telephone Via [facility] [address] [place] [address] Social History Date Tobacco Use [...] encounter Miscellaneous Notes * Telephone Encounter - Nadiya Reeves - 10/03/2019 12:33 PM MANAGER HARDWARE I spoke with west this afternoon and he complained he was having a very hard t bryson breathing and panting. I told patient he needs to go to ER if it gets worse. GER HARDWARE documented in this encounter Plan of Treatment Not on filedocumented as of this encounter Visit Diagnoses Not on filedocumented in this encounter
--- OUTSIDE RECORDS SUMMARY | 2020-04-15 15:12 | XMS REPORT | Encounter Summary ---
Author Author [facility] [place], [place], [place] Organization [facility] [place], [place], [place] Address Unknown Phone Unavailable Care Team Providers Care Home Care Provider Name Role Phone Win Verduzco MD PCP Unavailable Encounter Details Care Team Description Date Type Department Wilfredo Alcocer MD [address] [facility] [place] [address] [phone] Pain in joint, shoulder region (Primary Dx) 03/05/1998 Inpatient Selene Martin [facility] [place] [address] [facility] [place] [id number] Social History Date Tobacco Use Types Packs/Day Years Used Never Assessed Sex Assigned at Date Recorded Not on file Industry Job Start Date Occupation Not on file Not on file Not on file Travel End Travel History Travel Start No recent travel history available. documented as of this encounter Plan of Treatment Not on filedocumented as of this encounter Visit Diagnoses Diagnosis Pain in joint, shoulder region - Primar y documented in this encounter
--- OUTSIDE RECORDS SUMMARY | 2020-04-15 15:12 | XMS REPORT | Encounter Summary ---
Author Author [facility], [place], [place], [place], [place] Organization [facility], [place], [place], [place], [place] Address Unknown Phone Unavailable Care Team Providers Care Tool Maker Apprentice Name Role Phone Win Verduzco MD PCP Unavailable Reason for Visit * Reason Comments Agitation Due to hospital not getting his stress test done. Encounter Details Care Team Description Date Type Department Win Verduzco MD NO ADDRESS ON FILE Agitation (Due to hospital not getting h is stress test done.) 07/06/2019 Telephone Via [employer] [address] [place] [address] [place] [address] Social History Date Tobacco Use [...] Telephone Encounter - Rama Turner CMA - 07/06/2019 3:42 PM CDT Pt Called and stated that he was to have a stress test at the hospital tomorrow and now they are calling pt and advised that he needs to come in this evening an d when pt advised that he couldn't they are scheduling him Aug [address] Roosevelt koroma was called out of town on an Emergency. documented in this encounter Plan of Treatment Not on filedocumented as of this encounter Visit Diagnoses Not on filedocumented in this encounter
--- OUTSIDE RECORDS SUMMARY | 2020-04-15 15:12 | XMS REPORT | Encounter Summary ---
Author Author [facility] [employer] [facility], [place], [place], [place], [place] Areas Organization [facility], [place], [place], [place], [place] Address Unknown Phone Unavailable Care Team Providers Care Print Designer Name Role Phone Win Verduzco MD PCP Unavailable Reason for Visit * Reason Comments other Encounter Details Care Team Description Date Type Department Win Verduzco MD NO ADDRESS ON FILE other 09/29/2019 Telephone Via [employer] [address] [place] [address] Social History Date Tobacco Use [...] * Telephone Encounter - Nadiya Reeves - 09/29/2019 2:35 PM CDT Pt came in and wanted refill on med, ashok will put it in pile and will need to be signed. Pt said he will call back later. documented in this encounter Plan of Treatment Not on filedocumented as of this encounter Visit Diagnoses Not on filedocumented in this encounter
--- OUTSIDE RECORDS SUMMARY | 2020-04-15 15:12 | XMS REPORT | Encounter Summary ---
Author Author [facility], [employer], [place], [place], [facility] Organization [facility], [employer] [place], [place], [facility] Address Unknown Phone Unavailable Care Team Providers Care Trade Embalmer Name Role Phone Win Verduzco MD PCP Unavailable Encounter Details Care Team Description Date Type Department Win Verduzco MD NO ADDRESS ON FILE 06/23/[address] [facility] Primar y Care [facility] [address] [place] [address] Social History Date Tobacco Use Types Packs/Day [...]
--- OUTSIDE RECORDS SUMMARY | 2020-04-15 15:12 | XMS REPORT | Encounter Summary ---
Author Author [facility], [place]guy[place]n Milian, [place], [place], [place] Organization [facility], [place], [place], [place], [place] Address Unknown Phone Unavailable Care Team Providers Care Cycle Manager Name Role Phone Win Verduzco MD PCP Unavailable Reason for Visit * Reason Comments stress test Encounter Details Care Team Description Date Type Department Win Verduzco MD NO ADDRESS ON FILE stress test 07/06/2019 Telephone Via [employer] [address] [place] [address] Social History Date Tobacco Use [...] Encounter - Rama Turner CMA - 07/06/2019 4:59 PM CDT Talked to patient about the mix up on stress test. * Telephone Encounter - Haley Marquez RT - 07/06/2019 3:36 PM CDT Would like a call back about his stress test. Says the hospital is giving him a hard time about it. documented in this encounter Plan of Treatment Not on filedocumented as of this encounter Visit Diagnoses Not on filedocumented in this encounter
--- OUTSIDE RECORDS SUMMARY | 2020-04-15 15:12 | XMS REPORT | Encounter Summary ---
Author Author [facility], [place], [place], [place], [facility] Organization [facility], [place], [place], [facility] Address Unknown Phone Unavailable Care Team Providers Care Pmo Analyst Name Role Phone Win Verduzco MD PCP Unavailable Reason for Visit * Reason Comments Medication Refill Medication Refill Encounter Details Care Team Description Date Type Department Win Verduzco MD NO ADDRESS ON FILE Other chronic pain 09/21/2019 Refill Via [employer] [address] [email or web address] [address] Social History Date Tobacco Use [...]
--- OUTSIDE RECORDS SUMMARY | 2020-04-15 15:12 | XMS REPORT | Encounter Summary ---
Author Author [facility] Nguy[place]n Milian, [place], [facility] Organization [facility] Nguy[place]n Mil[place], [place], [facility] Address Unknown Phone Unavailable Care Team Providers Care Coordinate Measuring Machine Programmer Name Role Phone Win Verduzco MD PCP Unavailable Encounter Details Care Team Description Date Type Department [place], Joe Santizo MD [address] [facility] [facility] [address] [place] [phone] ROTATOR CUFF SYND NOS (Primary Dx) 11/10/2003 [facility] Cara [address] [facility] [place] [place] [phone] Social History Date Tobacco Use Types Packs/Day Years Used Never Assessed Sex Assigned at Date Recorded Not on file Industry Job Start Date Occupation Not on file Not on file Not on file Travel End Travel History Travel Start No recent travel history available. documented as of this encounter Plan of Treatment Not on filedocumented as of this encounter Visit Diagnoses Diagnosis Disorders of bursae and tendons in [facility], unspecified - Primary documented in this encounter
--- OUTSIDE RECORDS SUMMARY | 2020-04-15 15:12 | XMS REPORT | Encounter Summary ---
Author Author [facility], [facility] Organization [facility], [place], [facility] Address Unknown Phone Unavailable Care Team Providers Care Ecmo Specialist Name Role Phone Win Verduzco MD PCP Unavailable Encounter Details Care Team Description Date Type Department Maxwell Shane MD [address] [phone] SPRAIN ROTATOR CUFF (Primary Dx) 11/05/2001 Inpatient [facility] [facility] [address] [place] [phone] Social History Date Tobacco Use Types Packs/Day Years Used Never Assessed Sex Assigned at Date Recorded Not on file Industry Job Start Date Occupation Not on file Not on file Not on file Travel End Travel History Travel Start No recent travel history available. documented as of this encounter Plan of Treatment Not on filedocumented as of this encounter Visit Diagnoses Diagnosis Rotator cuff (capsule) sprain - Primary documented in this encounter
--- OUTSIDE RECORDS SUMMARY | 2020-04-15 15:12 | XMS REPORT | Encounter Summary ---
Author Author [facility], [place], [place], [place], [facility] Organization [facility], [employer], [place], [facility] Address Unknown Phone Unavailable Care Team Providers Care Electronic Engraver Name Role Phone Win Verduzco MD PCP Unavailable Reason for Visit * Reason Comments Medication Refill Encounter Details Care Team Description Date Type Department Win Verduzco MD NO ADDRESS ON FILE Other chronic pain (Primary Dx) 06/06/2019 Refill Via [employer] [address] [place] [address] Social History Date Tobacco [...] encounter Visit Diagnoses Diagnosis Other chronic pain - Primary documented in this encounter
--- OUTSIDE RECORDS SUMMARY | 2020-04-15 15:12 | XMS REPORT | Encounter Summary ---
Author Author [facility], [place], [place], [place], [facility] Organization [facility], [employer], [place], [facility] Address Unknown Phone Unavailable Care Team Providers Care Irradiated Fuel Handler Name Role Phone Win Verduzco MD PCP Unavailable Reason for Visit * Reason Comments Medication Refill Encounter Details Care Team Description Date Type Department Win Verduzco MD NO ADDRESS ON FILE 08/26/2019 Refill Via [employer] [address] [place] [address] Social History Date Tobacco Use [...]
--- OUTSIDE RECORDS SUMMARY | 2020-04-15 15:12 | XMS REPORT | Encounter Summary ---
Author Author [facility], [place]guy[place]n Milian, [place], [place], [facility] Organization [facility], [place]guy[place]n Milian, [place], [place], [place] Areas Address Unknown Phone Unavailable Care Team Providers Care Nut Packer Name Role Phone Win Verduzco MD PCP Unavailable Reason for Visit * Reason Comments Medication Refill Medication Refill Refill on Hydrocodone but p t hasn't been seen since May. He will need to make an appt before Rx for Hydrocodone will be given. Encounter Details Care Team Description Date Type Department Win Verduzco MD NO ADDRESS ON FILE 09/27/2019 Refill Via [employer] [address] [place] [address] Social History Date Tobacco Use [...] Telephone Encounter - Rama Turner CMA - 09/29/2019 2:35 PM CDT Pt hasn't been seen since May 2019. No Hydrocodone RX until seen. documented in this encounter Plan of Treatment Not on filedocumented as of this encounter Visit Diagnoses Not on filedocumented in this encounter
--- OUTSIDE RECORDS SUMMARY | 2020-04-15 15:12 | XMS REPORT | Encounter Summary ---
Author Author [facility], [employer], [place], [place], [facility] Organization [facility], [place], [place], [facility] Address Unknown Phone Unavailable Care Team Providers Care Head Of Research & Insights Name Role Phone Win Verduzco MD PCP Unavailable Encounter Details Care Team Description Date Type Department Maru [place] [address] [place] [address] 02/20/1989 Inpatient Historical Social History Date Tobacco Use Types Packs/Day [...]
--- OUTSIDE RECORDS SUMMARY | 2020-04-15 15:12 | XMS REPORT | Encounter Summary ---
Author Author [facility], [place], [facility] Organization [facility], [place], [facility] Address Unknown Phone Unavailable Care Team Providers Care Public Affairs Specialist Name Role Phone Win Verduzco MD PCP Unavailable Encounter Details Care Team Description Date Type Department Win Verduzco MD [address] [place] [address] [phone] Pain in joint, lower leg (Primary Dx) 03/13/2000 Inpatient Historical Cara aburto Historical [employer] Social History Date Tobacco Use Types Packs/Day [...] encounter Visit Diagnoses Diagnosis Pain in joint, lower leg - Primary documented in this encounter
--- OUTSIDE RECORDS SUMMARY | 2020-04-15 15:12 | XMS REPORT | Encounter Summary ---
Author Author [employer] [facility] [place], [place], [place], [facility] Organization [facility] [place], [place], [facility] Address Unknown Phone Unavailable Care Team Providers Care Mechanical Spreader Operator Name Role Phone Win Verduzco MD PCP Unavailable Reason for Visit * Reason Comments Post Hospital Check COPD follow up Pt states th at he awoke and couldn't get breath Encounter Details Care Team Description Date Type Department Win Verduzco MD NO ADDRESS ON FILE COPD with exacerbation (Primary Dx); Other chronic pain 06/29/2019 Office Visit Via [employer] [address] [place] [address] Social History Date Tobacco Use [...] Signs Reading Time Taken Comments Vital Sign 156/86 06/29/2019 10:07 AM CDT Blood Pressure 56 06/29/2019 10:07 AM CDT Pulse - - Temperature - - Respiratory Rate 96% 06/29/2019 10:07 AM CDT Oxygen Saturation - - Inhaled Oxygen Concentration 99.2 kg (218 lb 9.6 oz) 06/29/2019 10:07 AM CDT Weight 174 cm (5' 8.5") 06/29/2019 10:07 AM CDT Height 32.75 06/29/2019 10:07 AM CDT Body Mass Index documented in this encounter Progress Notes * Win Verduzco MD - 06/29/2019 10:26 AM CDT HISTORY OF PRESENT ILLNESS [place], a 73 y.o. male. Chief Complaint Patient presents with Post Hospital Check COPD follow up Pt states that he awoke and couldn't get breath Subjective The history is provided by the patient. The medical record reflects the History of Present Illness as obtained by myself in discussion with the patient. Past Medical History: Diagnosis Date COPD (chronic obstructive pulmonary disease) Gout HTN (hypertension) Current Outpatient Medications: albuterol (PROVENTIL,VENTOLIN) 5 mg/mL Solution for Nebulization, DIRECT ED IN NEBULIZER Dx COPD., Disp: , Rfl: albuterol HFA 90 mcg inhaler, Take 2 Puffs by inhalation every 4 hours as n eeded., Disp: , Rfl: albuterol HFA 90 mcg inhaler, INHALE 2 PUFFS BY MOUTH EVERY 4 TO 6 HOURS NEEDED.., Disp: 8.5 Gram, Rfl: 2 HYDROcodone-acetaminophen (NORCO) 10-325 mg Tablet, TAKE 1 TABLET BY MOUTH EVERY FOUR HOURS NEEDED FOR PAIN (MAX OF 6 PER DAY)., Disp: 40 Tablet, Rfl: 0 amLODIPine (NORVASC) 10 mg tablet, Take 10 mg by mouth daily., Disp: , Rfl: cloNIDine HCl (CATAPRES) 0.2 mg tablet, Take 0.2 mg by mouth every 8 hours. , Disp: , Rfl: enalapril (VASOTEC) 20 mg tablet, Take 1 Tablet by mouth daily., Disp: , Rf l: furosemide (LASIX) 40 mg tablet, Take 40 mg by mouth daily., Disp: , Rfl: metoprolol tartrate (LOPRESSOR) 100 mg tablet, Take 100 mg by mouth 2 times daily., Disp: , Rfl: ADVAIR HFA 115-21 mcg/actuation HFA Aerosol Inhaler, 2 Puffs every 12 hours . , Disp: , Rfl: indomethacin (INDOCIN) 50 mg capsule, Take 50 mg by mouth 3 times daily . , Disp: , Rfl: predniSONE (DELTASONE) 10 mg tablet, , Disp: , Rfl: [DISCONTINUED] PROAIR HFA 90 mcg/actuation inhaler, INHALE 2 PUFFS BY MOUTH EVERY 4 TO 6 HOURS NEEDED., Disp: 8.5 Gram, Rfl: 2 [DISCONTINUED] HYDROcodone-acetaminophen (NORCO) 10-325 mg Tablet, TAKE 1 T ABLET BY MOUTH EVERY FOUR HOURS NEEDED FOR PAIN (MAX OF 6 PER DAY), Disp: 40 Tablet, Rfl: 0 REVIEW OF SYSTEMS Review of Systems Constitutional: Positive for activity change and fatigue. HENT: Negative. Eyes: Negative. Respiratory: Positive for cough, shortness of breath and wheezing. Cardiovascular: Negative. Gastrointestinal: Negative. Endocrine: Negative. Genitourinary: Negative. Musculoskeletal: Negative. Skin: Negative. Allergic/Immunologic: Negative. Neurological: Positive for weakness. Hematological: Negative. Psychiatric/Behavioral: Negative. Objective PHYSICAL EXAM BP (!) 156/86 | Pulse (!) 56 | Ht 5' 8.5" (1.74 m) | Wt 99.2 kg (218 lb 9.6 o z) | SpO2 96% | BMI 32.75 kg/m Physical Exam Constitutional: He appears well-developed. HENT: Head: Normocephalic. Eyes: Pupils are equal, round, and reactive to light. Abdominal: Bowel sounds are normal. Musculoskeletal: Normal range of motion. Neurological: He is alert. No results found for: WBC, HGB, HGBPOC, HCT, HCTPOC, PLT, MCV, ESR, ESRPOC, CHOL TOT, HDL, LDLCALC, LDLDIRECT, TRIGLYCERIDE, ALT, AST, NA, K, KPOC, CL, CO2, CREA T, BUN, GFR, TSH, TSHULTRA, THYROIDSTIM, PSA, INR, GLUCOSEF, GLUCOSE, HGBA1C, AR CROALBUMIN, MALBUR, [id number] Assessment ASSESSMENT and PLAN: Encounter Diagnoses Name Primary? COPD with exacerbation Yes Other chronic pain Orders Placed This Encounter albuterol (PROVENTIL,VENTOLIN) 5 mg/mL Solution for Nebulization albuterol HFA 90 mcg inhaler albuterol HFA 90 mcg inhaler HYDROcodone-acetaminophen (NORCO) 10-325 mg Tablet DISCUSSION: Was hospitalized for exacerbation of COPD, improved, to see / Gabriela in near future Data Unavailable He voiced understanding and agreement with the treatment plan. He understands t he importance of taking his medications and keeping all follow-up appointments. All questions were answered. [id number] will be provided to patient u star check-out. documented in this encounter Plan of Treatment Not on filedocumented as of this encounter Visit Diagnoses Diagnosis COPD with exacerbation - Primary Obstructive chronic bronchitis with exa cerbation Other chronic pain documented in this encounter
--- OUTSIDE RECORDS SUMMARY | 2020-04-15 15:12 | XMS REPORT | Encounter Summary ---
Author Author [facility], [place], [place], [place], [facility] Organization [facility], [place], [place], [facility] Address Unknown Phone Unavailable Care Team Providers Care Shading Painter Name Role Phone Win Verduzco MD PCP Unavailable Reason for Visit * Reason Comments Medication Refill Encounter Details Care Team Description Date Type Department Win Verduzco MD NO ADDRESS ON FILE Other chronic pain 08/18/2019 Refill Via [employer] [address] [place] [address] Social History Date Tobacco Use [...]
--- OUTSIDE RECORDS SUMMARY | 2020-04-15 15:12 | XMS REPORT | Encounter Summary ---
Author Author [facility], [place]ian, [place], [place], [place] Organization [facility], [place], [place], [place], [place] Address Unknown Phone Unavailable Care Team Providers Care Tear Down Man Name Role Phone Win Verduzco MD PCP Unavailable Reason for Visit * Reason Comments Medication Refill Requesting refill on Hydroc odone 10/325 # 40 one every 4 hours max 6 tabs daily. return call Called and advised patient that he will have to wait until Thursday07/25/19 for to sign. Encounter Details Care Team Description Date Type Department Win Verduzco MD NO ADDRESS ON FILE Other chronic pain 07/21/2019 Refill Via [employer] [address] [place] [address] Social History Date Tobacco Use [...] Telephone Encounter - Rama Turner CMA - 07/21/2019 2:29 PM CDT Pt is requesting refill on his Hydrocodone 10/325 # 40 one q 4 hrs prn pain Max of 6 tablets daily. Called and advised that Dr Verduzco will not be back in the office until Thursday to sign it. Printed two Rx's and voided one. documented in this encounter Plan of Treatment Not on filedocumented as of this encounter Visit Diagnoses Diagnosis Other chronic pain documented in this encounter
--- OUTSIDE RECORDS SUMMARY | 2020-04-15 15:12 | XMS REPORT | Encounter Summary ---
Author Author [facility], [place], [place], [place], [facility] Organization [facility], [employer], [place], [facility] Address Unknown Phone Unavailable Care Team Providers Care Slate Worker Name Role Phone Win Verduzco MD PCP Unavailable Reason for Visit * Reason Comments Medication Refill Encounter Details Care Team Description Date Type Department Win Verduzco MD NO ADDRESS ON FILE 06/23/2019 Refill Via [employer] [address] [place] [address] Social History Date Tobacco Use [...]
--- OUTSIDE RECORDS SUMMARY | 2020-04-15 15:13 | XMS REPORT | Continuity of Care Document ---
Author Organization Unknown Address Unknown Phone Unavailable Allergies Active Description Code Type Severity Reaction Onset Reported/Identified Relationship to Patient Clinical Status Yes Sulfa (Sulfonamide Antibiotics) [id number] 0491 Drug Allergy Unknown N/A 019 Medications [...] V58.61 08/24/2015 Ot V58.83 09/17/2015 OSCAR KELLER BUMPER OPERATOR Ot 278.00 09/17/2015 OSCAR KELLER BUMPER OPERATOR Ot 401.9 09/17/2015 OSCAR KELLER BUMPER OPERATOR Ot 496 09/17/2015 OSCAR KELLER BUMPER OPERATOR Ot 780.54 09/17/2015 OSCAR KELLER BUMPER OPERATOR Ot 786.09 09/24/2015 OSCAR KELLER BUMPER OPERATOR Ot 278.00 09/24/2015 OSCAR KELLER BUMPER OPERATOR Ot 401.9 09/24/2015 OSCAR KELLER BUMPER OPERATOR Ot 496 09/24/2015 OSCAR KELLER BUMPER OPERATOR Ot 780.54 09/24/2015 OSCAR KELLER BUMPER OPERATOR Ot 786.09 10/31/2015 OSCAR KELLER BUMPER OPERATOR Ot G47.10 HYPERSOMNIA, UNSPECIFIED 10/31/2015 OSCAR KELLER BUMPER OPERATOR Ot I10 ESSENTIAL (PRIMARY) HYPERTENSION 10/31/2015 OSCAR KELLER BUMPER OPERATOR Ot J44.9 CHRONIC OBSTRUCTIVE PULMONARY DISEASE, U 10/31/2015 OSCAR KELLER BUMPER OPERATOR Ot R06.83 SNORING 07/09/2016 RUSTAM COSME [...] Ot K63. 5 POLYP OF COLON 07/19/2016 [place] Ruth Ot Z12. 11 ENCOUNTER FOR SCREENING FOR MALIGNANT NE 05/14/2018 OSCAR KELLER BUMPER OPERATOR Ot 278.00 OBESITY, NOS 05/14/2018 OSCAR KELLER BUMPER OPERATOR Ot 401.9 HYPERTENSION NOS 05/14/2018 OSCAR KELLER BUMPER OPERATOR Ot 496 CHR AIRWAY OBSTRUCT NEC 05/14/2018 OSCAR KELLER BUMPER OPERATOR Ot 780.54 HYPERSOMNIA, UNSPECIFIED 05/14/2018 OSCAR KELLER BUMPER OPERATOR Ot 786.09 RESPIRATORY ABNORM NEC 05/17/2018 JORI, BOBBY L BUMPER OPERATOR Ot M79.89 OTHER SPECIFIED SOFT TISSUE DISORDERS 05/17/2018 JORI, BOBBY L BUMPER OPERATOR Ot R06.00 DYSPNEA, UNSPECIFIED 05/17/2018 JORI, BOBBY L BUMPER OPERATOR Ot S22.42XA MULTIPLE FRACTURES OF RIBS, LEFT SIDE, I 05/17/2018 JORI, BOBBY L BUMPER OPERATOR Ot W19.XXXA UNSPECIFIED FALL, INITIAL ENCOUNTER 05/17/2018 JORI, BOBBY L BUMPER OPERATOR Ot Z87.09 PERSONAL HISTORY OF OTHER DISEASES OF TH 05/17/2018 JORI, BOBBY L BUMPER OPERATOR Ot 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 LEFT ARTIFICIAL KNEE JOINT 05/17/2018 JORI, BOBBY L BUMPER OPERATOR Ot M79.89 OTHER SPECIFIED SOFT TISSUE DISORDERS 05/17/2018 JORI, BOBBY L BUMPER OPERATOR Ot R06.00 DYSPNEA, UNSPECIFIED 05/17/2018 JORI, BOBBY L BUMPER OPERATOR Ot R10 .9 UNSPECIFIED ABDOMINAL PAIN 05/17/2018 JORI, BOBBY L BUMPER OPERATOR Ot S22.42XA MULTIPLE FRACTURES OF RIBS, LEFT SIDE, I 05/17/2018 JORI, BOBBY L BUMPER OPERATOR Ot W19.XXXA UNSPECIFIED FALL, INITIAL ENCOUNTER 05/17/2018 JORI, BOBBY L BUMPER OPERATOR Ot Z87.09 PERSONAL HISTORY OF OTHER DISEASES OF TH 05/17/2018 JORI, BOBBY L BUMPER OPERATOR Ot 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 LEFT ARTIFICIAL KNEE JOINT 06/07/2018 JORI, BOBBY L BUMPER OPERATOR Ot M79.89 OTHER SPECIFIED SOFT TISSUE DISORDERS 06/07/2018 JORI, BOBBY L BUMPER OPERATOR Ot R06.00 DYSPNEA, UNSPECIFIED 06/07/2018 JORI, BOBBY L BUMPER OPERATOR Ot R10 .9 UNSPECIFIED ABDOMINAL PAIN 06/07/2018 JORI, BOBBY L BUMPER OPERATOR Ot S22.42XA MULTIPLE FRACTURES OF RIBS, LEFT SIDE, I 06/07/2018 JORI, BOBBY L BUMPER OPERATOR Ot W19.XXXA UNSPECIFIED FALL, INITIAL ENCOUNTER 06/07/2018 JORI, BOBBY L BUMPER OPERATOR Ot Z87.09 PERSONAL HISTORY OF OTHER DISEASES OF TH 06/07/2018 JORI, BOBBY L BUMPER OPERATOR Ot 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 LEFT ARTIFICIAL KNEE JOINT 03/30/2019 OSCAR KELLER BUMPER OPERATOR Ot 278.00 OBESITY, NOS 03/30/2019 OSCAR KELLER BUMPER OPERATOR Ot 401.9 HYPERTENSION NOS 03/30/2019 OSCAR KELLER BUMPER OPERATOR Ot 496 CHR AIRWAY OBSTRUCT NEC 03/30/2019 OSCAR KELLER BUMPER OPERATOR Ot 780.54 HYPERSOMNIA, UNSPECIFIED 03/30/2019 TRCAY KELLERINE E BUMPER OPERATOR Ot 786.09 RESPIRATORY ABNORM NEC 03/30/2019 JORI, BOBBY L BUMPER OPERATOR Ot M79.89 OTHER SPECIFIED SOFT TISSUE DISORDERS 03/30/2019 JORI, BOBBY L BUMPER OPERATOR Ot R06.00 DYSPNEA, UNSPECIFIED 03/30/2019 JORI, BOBBY L BUMPER OPERATOR Ot R10 .9 UNSPECIFIED ABDOMINAL PAIN 03/30/2019 JORI, BOBBY L BUMPER OPERATOR Ot S22.42XA MULTIPLE FRACTURES OF RIBS, LEFT SIDE, I 03/30/2019 JORI, BOBBY L BUMPER OPERATOR Ot W19.XXXA UNSPECIFIED FALL, INITIAL ENCOUNTER 03/30/2019 JORI, BOBBY L BUMPER OPERATOR Ot Z87.09 PERSONAL HISTORY OF OTHER DISEASES OF TH 03/30/2019 JORI, BOBBY L BUMPER OPERATOR Ot 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 LEFT ARTIFICIAL KNEE JOINT 03/30/2019 OSCAR KELLER BUMPER OPERATOR Ot 278.00 OBESITY, NOS 03/30/2019 OSCAR KELLER BUMPER OPERATOR Ot 401.9 HYPERTENSION NOS 03/30/2019 OSCAR KELLER BUMPER OPERATOR Ot 496 CHR AIRWAY OBSTRUCT NEC 03/30/2019 OSCAR KELLER BUMPER OPERATOR Ot 780.54 HYPERSOMNIA, UNSPECIFIED 03/30/2019 OSCAR KELLER BUMPER OPERATOR Ot 786.09 RESPIRATORY ABNORM NEC 03/30/2019 JORI, BOBBY L BUMPER OPERATOR Ot M79.89 OTHER SPECIFIED SOFT TISSUE DISORDERS 03/30/2019 JORI, BOBBY L BUMPER OPERATOR Ot R06.00 DYSPNEA, UNSPECIFIED 03/30/2019 JORI, BOBBY L BUMPER OPERATOR Ot R10 .9 UNSPECIFIED ABDOMINAL PAIN 03/30/2019 JORI, BOBBY L BUMPER OPERATOR Ot S22.42XA MULTIPLE FRACTURES OF RIBS, LEFT SIDE, I 03/30/2019 JORI, BOBBY L BUMPER OPERATOR Ot W19.XXXA UNSPECIFIED FALL, INITIAL ENCOUNTER 03/30/2019 JORI, BOBBY L BUMPER OPERATOR Ot Z87.09 PERSONAL HISTORY OF OTHER DISEASES OF TH 03/30/2019 JORI, BOBBY L BUMPER OPERATOR Ot 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 LEFT ARTIFICIAL KNEE JOINT 03/30/2019 TRACY KELLERINE E BUMPER OPERATOR Ot 278.00 OBESITY, NOS 03/30/2019 OSCAR KELLER BUMPER OPERATOR Ot 401.9 HYPERTENSION NOS 03/30/2019 TRACY KELLERINE E BUMPER OPERATOR Ot 496 CHR AIRWAY OBSTRUCT NEC 03/30/2019 TRACY KELLERINE E BUMPER OPERATOR Ot 780.54 HYPERSOMNIA, UNSPECIFIED 03/30/2019 TRACY KELLERINE E BUMPER OPERATOR Ot 786.09 RESPIRATORY ABNORM NEC 03/30/2019 JORI, BOBBY L BUMPER OPERATOR Ot M79.89 OTHER SPECIFIED SOFT TISSUE DISORDERS 03/30/2019 JORI, BOBBY L BUMPER OPERATOR Ot R06.00 DYSPNEA, UNSPECIFIED 03/30/2019 JORI, BOBBY L BUMPER OPERATOR Ot R10 .9 UNSPECIFIED ABDOMINAL PAIN 03/30/2019 JORI, BOBBY L BUMPER OPERATOR Ot S22.42XA MULTIPLE FRACTURES OF RIBS, LEFT SIDE, I 03/30/2019 JORI, BOBBY L BUMPER OPERATOR Ot W19.XXXA UNSPECIFIED FALL, INITIAL ENCOUNTER 03/30/2019 JORI, BOBBY L BUMPER OPERATOR Ot Z87.09 PERSONAL HISTORY OF OTHER DISEASES OF 03/30/2019 JORI, BOBBY L BUMPER OPERATOR Ot 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 LEFT ARTIFICIAL KNEE JOINT 03/30/2019 OSCAR KELLER BUMPER OPERATOR Ot 278.00 OBESITY, NOS 03/30/2019 OSCAR KELLER BUMPER OPERATOR Ot 401.9 HYPERTENSION NOS 03/30/2019 OSCAR KELLER BUMPER OPERATOR Ot 496 CHR AIRWAY OBSTRUCT NEC 03/30/2019 OSCAR KELLER BUMPER OPERATOR Ot 780.54 HYPERSOMNIA, UNSPECIFIED 03/30/2019 OSCAR KELLER BUMPER OPERATOR Ot 786.09 RESPIRATORY ABNORM NEC 03/30/2019 JORI, BOBBY L BUMPER OPERATOR Ot M79.89 OTHER SPECIFIED SOFT TISSUE DISORDERS 03/30/2019 JORI, BOBBY L BUMPER OPERATOR Ot R06.00 DYSPNEA, UNSPECIFIED 03/30/2019 JORI, BOBBY L BUMPER OPERATOR Ot R10 .9 UNSPECIFIED ABDOMINAL PAIN 03/30/2019 JORI, BOBBY L BUMPER OPERATOR Ot S22.42XA MULTIPLE FRACTURES OF RIBS, LEFT SIDE, I 03/30/2019 JORI, BOBBY L BUMPER OPERATOR Ot W19.XXXA UNSPECIFIED FALL, INITIAL ENCOUNTER 03/30/2019 JORI, BOBBY L BUMPER OPERATOR Ot Z87.09 PERSONAL HISTORY OF OTHER DISEASES OF TH 03/30/2019 JORI, BOBBY L BUMPER OPERATOR Ot 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 LEFT ARTIFICIAL KNEE JOINT 04/06/2019 OSCAR KELLER BUMPER OPERATOR Ot 278.00 OBESITY, NOS 04/06/2019 TRACY KELLERINE E BUMPER OPERATOR Ot 401.9 HYPERTENSION NOS 04/06/2019 TRACY KELLERINE E BUMPER OPERATOR Ot 496 CHR AIRWAY OBSTRUCT NEC 04/06/2019 TRACY KELLERINE E BUMPER OPERATOR Ot 780.54 HYPERSOMNIA, UNSPECIFIED 04/06/2019 TRACY KELLERINE E BUMPER OPERATOR Ot 786.09 RESPIRATORY ABNORM NEC 04/06/2019 JORI, BOBBY L BUMPER OPERATOR Ot M79.89 OTHER SPECIFIED SOFT TISSUE DISORDERS 04/06/2019 JORI, BOBBY L BUMPER OPERATOR Ot R06.00 DYSPNEA, UNSPECIFIED 04/06/2019 JORI, BOBBY L BUMPER OPERATOR Ot R10 .9 UNSPECIFIED ABDOMINAL PAIN 04/06/2019 JORI, BOBBY L BUMPER OPERATOR Ot S22.42XA MULTIPLE FRACTURES OF RIBS, LEFT SIDE, I 04/06/2019 JORI, BOBBY L BUMPER OPERATOR Ot W19.XXXA UNSPECIFIED FALL, INITIAL ENCOUNTER 04/06/2019 JORI, BOBBY L BUMPER OPERATOR Ot Z87.09 PERSONAL HISTORY OF OTHER DISEASES OF 04/06/2019 JORI, BOBBY L BUMPER OPERATOR Ot 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 LEFT ARTIFICIAL KNEE JOINT 04/06/2019 OSCAR KELLER E BUMPER OPERATOR Ot 278.00 OBESITY, NOS 04/06/2019 TRACY KELLERINE E BUMPER OPERATOR Ot 401.9 HYPERTENSION NOS 04/06/2019 OSCAR KELLER BUMPER OPERATOR Ot 496 CHR AIRWAY OBSTRUCT NEC 04/06/2019 TRACY KELLERINE E BUMPER OPERATOR Ot 780.54 HYPERSOMNIA, UNSPECIFIED 04/06/2019 TRACY KELLERINE E BUMPER OPERATOR Ot 786.09 RESPIRATORY ABNORM NEC 04/06/2019 JORI, BOBBY L BUMPER OPERATOR Ot M79.89 OTHER SPECIFIED SOFT TISSUE DISORDERS 04/06/2019 JORI, BOBBY L BUMPER OPERATOR Ot R06.00 DYSPNEA, UNSPECIFIED 04/06/2019 JORI, BOBBY L BUMPER OPERATOR Ot R10 .9 UNSPECIFIED ABDOMINAL PAIN 04/06/2019 JORI, BOBBY L BUMPER OPERATOR Ot S22.42XA MULTIPLE FRACTURES OF RIBS, [...] HISTORY OF NICOTINE DEPENDENCE 06/14/2019 OSCAR KELLER BUMPER OPERATOR Ot 278.00 OBESITY, NOS 06/14/2019 OSCAR KELLER BUMPER OPERATOR Ot 401.9 HYPERTENSION NOS 06/14/2019 OSCAR KELLER BUMPER OPERATOR Ot 496 CHR AIRWAY OBSTRUCT NEC 06/14/2019 OSCAR KELLER BUMPER OPERATOR Ot 780.54 HYPERSOMNIA, UNSPECIFIED 06/14/2019 OSCAR KELLER BUMPER OPERATOR Ot 786.09 RESPIRATORY ABNORM NEC 06/14/2019 BOBBY HSIEH BUMPER OPERATOR Ot M79.89 OTHER SPECIFIED SOFT TISSUE DISORDERS 06/14/2019 JORI, BOBBY L BUMPER OPERATOR Ot R06.00 DYSPNEA, UNSPECIFIED 06/14/2019 JORI, BOBBY Serrano BUMPER OPERATOR Ot R10 .9 UNSPECIFIED ABDOMINAL PAIN 06/14/2019 JORI, BOBBY Serrano BUMPER OPERATOR Ot S22.42XA MULTIPLE FRACTURES OF RIBS, LEFT SIDE, I 06/14/2019 BOBBY HSIEH BUMPER OPERATOR Ot W19.XXXA UNSPECIFIED FALL, INITIAL ENCOUNTER 06/14/2019 BOBBY HSIEH BUMPER OPERATOR Ot Z87.09 PERSONAL HISTORY OF OTHER DISEASES OF TH 06/14/2019 JORIBOBBY CABELLO BUMPER OPERATOR Ot 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 LEFT ARTIFICIAL [...] .9 CHEST PAIN, UNSPECIFIED 08/23/2019 OSCAR KELLER BUMPER OPERATOR Ot 278.00 OBESITY, NOS 08/23/2019 OSCAR KELLER BUMPER OPERATOR Ot 401.9 HYPERTENSION NOS 08/23/2019 OSCAR KELLER BUMPER OPERATOR Ot 496 CHR AIRWAY OBSTRUCT NEC 08/23/2019 OSCAR KELLER BUMPER OPERATOR Ot 780.54 HYPERSOMNIA, UNSPECIFIED 08/23/2019 OSCAR KELLER BUMPER OPERATOR Ot 786.09 RESPIRATORY ABNORM NEC 08/23/2019 JORI, BOBBY L BUMPER OPERATOR Ot M79.89 OTHER SPECIFIED SOFT TISSUE DISORDERS 08/23/2019 JORI, BOBBY L BUMPER OPERATOR Ot R06.00 DYSPNEA, UNSPECIFIED 08/23/2019 JORI, BOBBY L BUMPER OPERATOR Ot R10 .9 UNSPECIFIED ABDOMINAL PAIN 08/23/2019 JORI, BOBBY L BUMPER OPERATOR Ot S22.42XA MULTIPLE FRACTURES OF RIBS, LEFT SIDE, I 08/23/2019 JORI, BOBBY L BUMPER OPERATOR Ot W19.XXXA UNSPECIFIED FALL, INITIAL ENCOUNTER 08/23/2019 JORI, BOBBY L BUMPER OPERATOR Ot Z87.09 PERSONAL HISTORY OF OTHER DISEASES OF TH 08/23/2019 JORI, BOBBY L BUMPER OPERATOR Ot 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 LEFT ARTIFICIAL [...] Ot G47.10 HYPERSOMNIA, UNSPECIFIED 08/23/2019 OSCAR KELLER BUMPER OPERATOR Ot J43.9 EMPHYSEMA, UNSPECIFIED 08/23/2019 ARIANNAOSCAR WALKER BUMPER OPERATOR Ot G47.10 HYPERSOMNIA, UNSPECIFIED 08/24/2019 OSCAR KELLER BUMPER OPERATOR Ot G47.10 HYPERSOMNIA, UNSPECIFIED 08/24/2019 OSCAR KELLER BUMPER OPERATOR Ot G47.36 SLEEP RELATED HYPOVENTILATION IN CONDITI 08/24/2019 OSCAR KELLER BUMPER OPERATOR Ot G47.50 PARASOMNIA, UNSPECIFIED 09/07/2019 Marta HERNANDEZ [...] Ot I25. 10 ATHSCL HEART DISEASE OF [place] CORONARY 10/06/2019 PATRICIA REID MD Ot I48. [...] Ot I25. 10 ATHSCL HEART DISEASE OF [place] CORONARY 11/01/2019 ISAI AVILA MD Ot I48. [...] MD Ot I25.10 ATHSCL HEART DISEASE OF [place] CORONARY 11/03/2019 Marta HERNANDEZ MD Ot I48.19 [...] ADULT 11/03/2019 Marta HERNANDEZ MD Ot Z79.01 PLASTIC PRESS MOLDER (CURRENT) USE OF ANTICOAGULANT 11/03/2019 Marta HERNANDEZ [...] MD Ot I25.10 ATHSCL HEART DISEASE OF [place] CORONARY 11/07/2019 Marta HERNANDEZ MD Ot I48.19 [...] 11/07/2019 Marta HERNANDEZ MD, Ot Z79.899 OTHER PLASTIC PRESS MOLDER (CURRENT) DRUG THERAPY 11/07/2019 Marta HERNANDEZ MD, Ot Z80 .9 FAMILY HISTORY OF MALIGNANT NEOPLASM, UN 11/07/2019 Marta HERNANDEZ MD, Ot Z82.49 FAMILY HX OF ISCHEM HEART DIS AND OTH DI 11/07/2019 Marta HERNANDEZ MD, Ot Z88 .2 ALLERGY STATUS TO SULFONAMIDES STATUS 11/15/2019 APTRICIA REID MD Ot J44. 1 CHRONIC OBSTRUCTIVE PULMONARY DISEASE W 12/21/2019 PATRICIA REID MD Ot J44. 1 CHRONIC OBSTRUCTIVE PULMONARY DISEASE W 12/26/2019 OSCAR KELLER BUMPER OPERATOR Ot G47.10 HYPERSOMNIA, UNSPECIFIED 12/26/2019 OSCAR KELLER BUMPER OPERATOR Ot G47.36 SLEEP RELATED HYPOVENTILATION IN CONDITI 12/26/2019 OSCAR KELLER BUMPER OPERATOR Ot G47.50 PARASOMNIA, UNSPECIFIED 12/26/2019 OSCAR KELLER BUMPER OPERATOR Ot J43.9 EMPHYSEMA, UNSPECIFIED 12/26/2019 OSCAR KELLER BUMPER OPERATOR Ot J90 PLEURAL EFFUSION, NOT ELSEWHERE CLASSIFI 12/26/2019 OSCAR KELLER BUMPER OPERATOR Ot R91.8 OTHER NONSPECIFIC ABNORMAL FINDING OF JD 02/03/2020 OSCAR KELLER BUMPER OPERATOR Ot J43.9 EMPHYSEMA, UNSPECIFIED 02/03/2020 OSCAR KELLER BUMPER OPERATOR Ot J90 PLEURAL EFFUSION, NOT ELSEWHERE CLASSIFI 02/03/2020 ARIANNA, OSCAR E BUMPER OPERATOR Ot J96.91 RESPIRATORY FAILURE, UNSPECIFIED WITH HY 02/03/2020 ARIANNA, OSCAR E BUMPER OPERATOR Ot R06.00 DYSPNEA, UNSPECIFIED 02/03/2020 ARIANNA, OSCAR E BUMPER OPERATOR Ot R09.02 HYPOXEMIA 02/03/2020 ARIANNA, OSCAR E BUMPER OPERATOR Ot W07.XXXD FALL FROM CHAIR, SUBSEQUENT ENCOUNTER 02/07/2020 FRANKLIN EDGAR, PATRICIA Lozano Ot J44. 1 CHRONIC OBSTRUCTIVE PULMONARY DISEASE W 02/08/2020 ARIANNA, OSCAR E BUMPER OPERATOR Ot J43.9 EMPHYSEMA, UNSPECIFIED 02/08/2020 ARIANNA, OSCAR E BUMPER OPERATOR Ot J90 PLEURAL EFFUSION, NOT ELSEWHERE CLASSIFI 02/08/2020 ARIANNA, OSCAR E BUMPER OPERATOR Ot J96.91 RESPIRATORY FAILURE, UNSPECIFIED WITH HY 02/08/2020 ARIANNA, OSCAR E BUMPER OPERATOR Ot R06.00 DYSPNEA, UNSPECIFIED 02/08/2020 ARIANNA, OSCAR E BUMPER OPERATOR Ot R09.02 HYPOXEMIA 02/08/2020 ARIANNA, OSCAR E BUMPER OPERATOR Ot W07.XXXD FALL FROM CHAIR, SUBSEQUENT ENCOUNTER 02/08/2020 FRANKLIN EDGAR, PATRICIA Lozano Ot J44. 1 CHRONIC OBSTRUCTIVE PULMONARY DISEASE W 02/22/2020 ARIANNA, OSCAR E BUMPER OPERATOR Ot J43.9 EMPHYSEMA, UNSPECIFIED 02/22/2020 ARIANNA, OSCAR E BUMPER OPERATOR Ot J90 PLEURAL EFFUSION, NOT ELSEWHERE CLASSIFI 02/22/2020 ARIANNA, OSCAR E BUMPER OPERATOR Ot J96.91 RESPIRATORY FAILURE, UNSPECIFIED WITH HY 02/22/2020 ARIANNA, OSCAR E BUMPER OPERATOR Ot R06.00 DYSPNEA, UNSPECIFIED 02/22/2020 ARIANNA, OSCAR E BUMPER OPERATOR Ot R09.02 HYPOXEMIA 02/22/2020 ARIANNA, OSCAR E BUMPER OPERATOR Ot W07.XXXD FALL FROM CHAIR, SUBSEQUENT ENCOUNTER 03/02/2020 MICHAEL TAYLOR BUMPER OPERATOR Ot M25.461 EFFUSION, RIGHT KNEE 03/02/2020 MICHAEL TAYLOR BUMPER OPERATOR Ot M25.561 PAIN IN RIGHT KNEE 03/02/2020 MICHAEL TAYLOR BUMPER OPERATOR Ot Z96.651 PRESENCE OF RIGHT ARTIFICIAL KNEE JOINT 03/05/2020 MICHAEL TAYLOR BUMPER OPERATOR Ot M25.461 EFFUSION, RIGHT KNEE 03/05/2020 CLAUDIA, MICHAEL R BUMPER OPERATOR Ot M25.561 PAIN IN RIGHT KNEE 03/05/2020 CLAUDIA, MICHAEL R BUMPER OPERATOR Ot Z96.651 PRESENCE OF RIGHT ARTIFICIAL KNEE JOINT 03/05/2020 CLAUDIA, MICHAEL R BUMPER OPERATOR Ot M25.461 EFFUSION, RIGHT KNEE 03/05/2020 CLAUDIA, MICHAEL R BUMPER OPERATOR Ot M25.561 PAIN IN RIGHT KNEE 03/05/2020 CLAUDIA, MICHAEL R BUMPER OPERATOR Ot Z96.651 PRESENCE OF RIGHT ARTIFICIAL KNEE JOINT 03/06/2020 CLAUDIA, MICHAEL R BUMPER OPERATOR Ot M25.461 EFFUSION, RIGHT KNEE 03/06/2020 CLAUDIA, MICHAEL R BUMPER OPERATOR Ot M25.561 PAIN IN RIGHT KNEE 03/06/2020 CLAUDIA, MICHAEL R BUMPER OPERATOR Ot Z96.651 PRESENCE OF RIGHT ARTIFICIAL KNEE JOINT 03/21/2020 CLAUDIA, MICHAEL R BUMPER OPERATOR Ot M25.461 EFFUSION, RIGHT KNEE 03/21/2020 CLAUDIA, MICHAEL R BUMPER OPERATOR Ot M25.561 PAIN IN RIGHT KNEE 03/21/2020 CLAUDIA, MICHAEL R BUMPER OPERATOR Ot Z96.651 PRESENCE OF RIGHT ARTIFICIAL KNEE JOINT 04/09/2020 PATRICIA REID MD Ot D64. 9 ANEMIA, UNSPECIFIED 04/09/2020 PATRICIA REID MD Ot E87. 70 FLUID OVERLOAD, UNSPECIFIED 04/09/2020 PATRICIA REID MD Ot F12. 90 CANNABIS USE, UNSPECIFIED, UNCOMPLICATED 04/09/2020 PATRICIA REID MD Ot F41. 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 0 HYPERTENSIVE HEART DISEASE WITH HEART FA 04/09/2020 PATRICIA REID MD Ot I21. A1 MYOCARDIAL INFARCTION TYPE 2 04/09/2020 PATRICIA REID MD Ot I25. 10 ATHSCL HEART DISEASE OF [place] CORONARY 04/09/2020 PATRICIA REID MD Ot I47. 1 SUPRAVENTRICULAR TACHYCARDIA 04/09/2020 PATRICIA REID MD Ot I47. 2 VENTRICULAR TACHYCARDIA 04/09/2020 PATRICIA REID MD Ot I48. 0 PAROXYSMAL ATRIAL FIBRILLATION 04/09/2020 PATRICIA REID MD, Ot I50. 33 ACUTE ON CHRONIC DIASTOLIC (CONGESTIVE) 04/09/2020 PATRICIA REID MD, Ot J44. 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 70 GASTRITIS, UNSPECIFIED, WITHOUT BLEEDING 04/09/2020 PATRICIA REID MD, Ot K44. 9 DIAPHRAGMATIC HERNIA WITHOUT OBSTRUCTION 04/09/2020 PATRICIA REID MD, Ot M19. 91 PRIMARY OSTEOARTHRITIS, UNSPECIFIED SITE 04/09/2020 PATRICIA REID MD, Ot Z87.891 PERSONAL HISTORY OF NICOTINE DEPENDENCE 04/09/2020 PATRICIA REID MD, Ot Z90. 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 Procedures Code Description Performed By Per formed On [id number] RE STORATION OF CARDIAC RHYTHM, SINGLE 08/15/2019 [id number] ME ASURE OF CARDIAC SAMPL PRESSURE, L H 10/04/2019 [id number] ME ASUREMENT OF ARTERIAL PRESSURE, MCGRATH 10/04/2019 [id number] FL UOROSCOPY OF MULT COR ART USING L OSM 10/04/2019 [id number] EX CISION OF ESOPHAGOGASTRIC JUNCTION, EN 04/08/2020 [id number] EX CISION OF STOMACH, PYLORUS, ENDO, DIAG 04/08/2020 Results Test Result Range Complete urinalysis with [...] SEE COMMENTS NRG QUANTITY OF GROWTH Isolated [facility] Bacterial blood culture [id number] [facility] Influenza virus A and B antigen detectio n - 12/01/19 06:24 FLU RESULT NEGATIVE FOR INFLUENZA A [...] OF GROWTH Isolated NRG Bacterial blood culture [id number] NRG Serum or plasma troponin i.cardiac measu [...] lactic acid measurement (moles/volume) 1.71 mmol/L 0.50-2.00 Bacterial blood culture - 04/06/20 14:30 Bacterial blood culture NG NRG Bacterial blood culture - 04/06/20 14:50 Bacterial blood culture NG NRG Complete urinalysis with reflex to cultu [...] sediment by light tang roscopy 5-10 NRG Bacterial urine culture - 04/06/20 15:57 Bacterial urine culture 3 OR MORE NRG COLONY COUNT 20,000 CFU/ML NRG SUSCEPTIBILITY SUGGESTING PROBABLE COLLECTION NRG MRSA SCREEN CONTAMINATION WITH SKIN NADEEN NRG RAPID ID NO SUSCEPTIBILITY PERFORMED N RG Complete blood count (CBC) with automate d white blood cell (WBC) differential - 04/07/20 04:41 Blood leukocytes automated count (number/volume) 4.3 10*3/uL 4.3-11.0 Blood erythrocytes automated count (number/volume) 2.95 10*6/uL 4.35-5.85 Venous blood hemoglobin measurement (mass/volume) 8.2 g/dL 13.3-17.7 Blood hematocrit (volume fraction) 27 % 40-54 Automated erythrocyte mean corpuscular volume 91 [ foz_us] 80-99 Automated erythrocyte mean corpuscular h emoglobin (mass per erythrocyte) 28 pg 25-34 Automated erythrocyte mean corpuscular h emoglobin concentration measurement (mass/volume) 31 g/dL 32-36 Automated erythrocyte distribution width ratio 16. 4 % 10.0- 14.5 Automated blood platelet count (count/volume) 333 10*3/uL 130-400 Automated blood platelet mean volume measurement 10.6 [foz_us] 7.4-10.4 Automated blood neutrophils/100 leukocytes 94 % 42-75 Automated blood lymphocytes/100 leukocytes 5 % 12-44 Blood monocytes/100 leukocytes 1 % 0-12 Automated blood eosinophils/100 leukocytes 0 % 0-10 Automated blood basophils/100 leukocytes 0 % 0-10 Blood neutrophils automated count (number/volume) 4.1 10*3 1.8-7.8 Blood lymphocytes automated count (number/volume) 0.2 10*3 1.0-4.0 Blood monocytes automated count (number/volume) 0. 0 10*3 0.0-1.0 Automated eosinophil count 0.0 10*3/uL 0 .0-0.3 Automated blood basophil count (count/volume) 0.0 10*3/uL 0.0-0.1 Comprehensive metabolic panel - 04/07/20 04:41 Serum or plasma sodium measurement (moles/volume) 137 mmol/L 135-145 Serum or plasma potassium measurement (moles/volume) 4.3 mmol/L 3.6-5.0 Serum or plasma chloride measurement (moles/volume) 102 mmol/L 98-107 Carbon dioxide 22 mmol/L 21-32 Serum or plasma anion gap determination (moles/volume) 13 mmol/L 5-14 Serum or plasma urea nitrogen measurement (mass/volume ) 21 mg/dL 7-18 Serum or plasma creatinine measurement (mass/volume) 1.24 mg/dL 0.60-1.30 Serum or plasma urea nitrogen/creatinine mass ratio 17 NRG Serum or plasma creatinine measurement w ith calculation of estimated glomerular filtration rate 57 NRG Serum or plasma glucose measurement (mass/volume) 132 mg/dL 70-105 Serum or plasma calcium measurement (mass/volume) 8.4 mg/dL 8.5-10.1 Serum or plasma total bilirubin measurement (mass/volu me) 0.6 mg/dL 0.1-1.0 Serum or plasma alkaline phosphatase denaa surement (enzymatic activity/volume) 67 U/L 40-136 Serum or plasma aspartate aminotransfera se measurement (enzymatic activity/volume) 15 U/L 5-34 Serum or plasma alanine aminotransferase measurement (enzymatic activity/volume) 14 U/L 0-55 Serum or plasma protein measurement (mass/volume) 6.8 g/dL 6.4-8.2 Serum or plasma albumin measurement (mass/volume) 3.6 g/dL 3.2-4.5 CALCIUM CORRECTED 8.7 mg/dL 8.5-10.1 Methicillin resistant Staphylococcus aur eus (MRSA) screening culture - 04/07/20 13:50 Methicillin resistant Staphylococcus aureus (MRSA) scr eening culture NEG NR Automated blood complete blood count (he mogram) panel - 04/08/20 04:09 Blood leukocytes automated count (number/volume) 8.4 10*3/uL 4.3-11.0 Blood erythrocytes automated count (number/volume) 3.06 10*6/uL 4.35-5.85 Venous blood hemoglobin measurement (mass/volume) 8.5 g/dL 13.3-17.7 Blood hematocrit (volume fraction) 28 % 40-54 Automated erythrocyte mean corpuscular volume 90 [ foz_us] 80-99 Automated erythrocyte mean corpuscular h emoglobin (mass per erythrocyte) 28 pg 25-34 Automated erythrocyte mean corpuscular h emoglobin concentration measurement (mass/volume) 31 g/dL 32-36 Automated erythrocyte distribution width ratio 16. 8 % 10.0- 14.5 Automated blood platelet count (count/volume) 331 10*3/uL 130-400 Automated blood platelet mean volume measurement 10.7 [foz_us] 7.4-10.4 Whole blood basic metabolic panel - 03/30 04:09 Serum or plasma sodium measurement (moles/volume) 136 mmol/L 135-145 Serum or plasma potassium measurement (moles/volume) 4.4 mmol/L 3.6-5.0 Serum or plasma chloride measurement (moles/volume) 101 mmol/L 98-107 Carbon dioxide 24 mmol/L 21-32 Serum or plasma anion gap determination (moles/volume) 11 mmol/L 5-14 Serum or plasma urea nitrogen measurement (mass/volume ) 27 mg/dL 7-18 Serum or plasma creatinine measurement (mass/volume) 1.40 mg/dL 0.60-1.30 Serum or plasma urea nitrogen/creatinine mass ratio 19 NRG Serum or plasma creatinine measurement w ith calculation of estimated glomerular filtration rate 50 NRG Serum or plasma glucose measurement (mass/volume) 111 mg/dL 70-105 Serum or plasma calcium measurement (mass/volume) 8.7 mg/dL 8.5-10.1 Automated blood complete blood count ( mogram) panel - 04/09/20 04:05 Blood leukocytes automated count (number/volume) 9.0 10*3/uL 4.3-11.0 Blood erythrocytes automated count (number/volume) 2.94 10*6/uL 4.35-5.85 Venous blood hemoglobin measurement (mass/volume) 8.1 g/dL 13.3-17.7 Blood hematocrit (volume fraction) 27 % 40-54 Automated erythrocyte mean corpuscular volume 90 [ foz_us] 80-99 Automated erythrocyte mean corpuscular h emoglobin (mass per erythrocyte) 28 pg 25-34 Automated erythrocyte mean corpuscular h emoglobin concentration measurement (mass/volume) 31 g/dL 32-36 Automated erythrocyte distribution width ratio 16. 6 % 10.0- 14.5 Automated blood platelet count (count/volume) 334 10*3/uL 130-400 Automated blood platelet mean volume measurement 10.5 [foz_us] 7.4-10.4 Whole blood basic metabolic panel - 03/30 12/19 04:05 Serum or plasma sodium measurement (moles/volume) 137 mmol/L 135-145 Serum or plasma potassium measurement (moles/volume) 3.9 mmol/L 3.6-5.0 Serum or plasma chloride measurement (moles/volume) 100 mmol/L 98-107 Carbon dioxide 26 mmol/L 21-32 Serum or plasma anion gap determination (moles/volume) 11 mmol/L 5-14 Serum or plasma urea nitrogen measurement (mass/volume ) 29 mg/dL 7-18 Serum or plasma creatinine measurement (mass/volume) 1.58 mg/dL 0.60-1.30 Serum or plasma urea nitrogen/creatinine mass ratio 18 NRG Serum or plasma creatinine measurement w ith calculation of estimated glomerular filtration rate 43 NRG Serum or plasma glucose measurement (mass/volume) 73 mg/dL 70-105 Serum or plasma calcium measurement (mass/volume) 8.3 mg/dL 8.5-10.1 Encounters ACCT No. Visit Date/Time Discharge Status Pt. Type Provider Facility Loc./Unit Complaint [id number] 04/06/2020 15:51:00 13:24:00 DIS Inpatient PATRICIA REID MD [facility] 4TH ACUTE COPD,ACUTE HF,BHAVIK VATED TROPONIN [id number] 03/01/2020 15:14:00 23:59:59 CLS Outpatient MICHAEL TAYLOR BUMPER OPERATOR [facility] RAD RT KNEE PAIN [id number] 11/09/2019 10:31:00 00:01:00 DIS Outpatient PATRICIA REID MD [facility] PULM COPD [id number] 02/02/2020 11:26:00 23:59:59 CLS Outpatient OSCAR KELLER BUMPER OPERATOR [facility] RAD HYPOXEMIA [id number] 12/02/2019 12:35:00 23:59:59 CLS Outpatient OSCAR KELLER BUMPER OPERATOR [facility] RAD COPD,EXCESSIVE SLEEPINESS,EMPHYSEMA [id number] 11/03/2019 07:55:00 09:45:00 DIS Outpatient Marta HERNANDEZ MD [facility] CATH PAF [id number] 11/02/2019 09:30:00 23:59:59 CLS Preadmit OSCAR KELLER BUMPER OPERATOR [facility] PULM DYSPNEA,EXCESSI VE SLEEPINESS,COPD [id number] 10/30/2019 07:12:00 14:10:00 DIS Inpatient ISAI AVILA MD [facility] 4TH ACUTE RESP FAILURE WITH HYPOXIA,COPD EXACERBATION [id number] 08/03/2019 09:36:00 00:01:00 DIS Outpatient OSCAR KELLER APRN [facility] PULM DYSPNEA,EXCESSI VE SLEEPINESS,COPD [id number] 10/04/2019 10:42:00 15:50:00 DIS Inpatient FRANKLIN EDGAR, PATRICIA Lozano [facility] 4TH CHF EXACERBATION;COPD;C HEST PAIN [id number] 09/09/2019 13:43:00 23:59:59 CLS Preadmit OSCAR KELLER APRN [facility] RAD COPD [id number] 08/23/2019 19:43:00 06:10:00 DIS Outpatient OSCAR KELLER APRN [facility] SLEEP DYSPNEA,EXCESSI VE SLEEPINESS [id number] 08/22/2019 09:01:00 23:59:59 CLS Outpatient OSCAR KELLER APRN [facility] RAD DYSPNEA,EXCESSI VE SLEEPINESS [id number] 08/18/2019 07:39:00 23:59:59 CLS Outpatient Marta HERNANDEZ MD [facility] CARD CHEST PAIN [id number] 08/15/2019 13:48:00 14:17:00 DIS Inpatient ISAI AVILA MD [facility] ICU CHF, ATRIAL FIB, COPD [id number] 07/06/2019 00:12:00 23:59:59 CLS Preadmit Marta HERNANDEZ MD [facility] CARD DIZZINESS [id number] 04/06/2019 13:36:00 00:01:00 DIS Outpatient Marta HERNANDEZ MD [facility] CARD DIZZINESS [id number] 06/12/2019 07:30:00 17:08:00 DIS Inpatient BENJAMIN MOSER MD [facility] 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 [id number] 04/06/2019 13:30:00 23:59:59 CLS Outpatient Marta HERNANDEZ MD [facility] CARD DIZZINESS [id number] 03/30/2019 10:34:00 23:59:59 CLS Preadmit Marta HERNANDEZ MD [facility] CARD DIZZINESS,NEAR SYNCOPE [id number] 05/14/2018 08:55:00 23:59:59 CLS Outpatient BOBBY HSIEH BUMPER OPERATOR [facility] RAD R06.00 [id number] 07/11/2016 09:21:00 016 13:40:00 DIS Outpatient RUSTAM COSME DO [facility] SDC SCREENING [id number] 07/09/2016 05:44:00 016 11:21:00 DIS Outpatient RUSTAM COSME DO [facility] PREOP SCREENING [id number] 10/31/2015 11:16:00 015 11:37:00 DIS Outpatient OSCAR KELLER BUMPER OPERATOR [facility] SLEEP SNORING, UMESH Baker IN SLEEP, EDS, HPN [id number] 08/24/2015 12:48:00 015 23:59:59 CLS Outpatient OSCAR KELLER BUMPER OPERATOR [facility] RT COPD [id number] 08/24/2015 12:47:00 Document Registration [id number] 08/24/2015 12:47:00 Document Registration [id number] 08/24/2015 12:47:00 Document Registration [id number] 10/30/2011 12:45:00 Document Registration [id number] 10/27/2011 13:30:00 Document Registration [id number] 05/15/2011 12:43:00 Document Registration [id number] 04/17/2011 15:28:00 Document Registration
--- NOTE | 2020-04-15 15:20 | ED Respiratory ---
General Chief Complaint: Respiratory Problems Stated Complaint: SOA Source: patient Exam Limitations: no limitations History of Present Illness Date Seen by Provider: April 15, 2020 Time Seen by Provider: 15:18 Initial Comments To ER per EMS from home with reports of increasing shortness of breath for about 48 hours. He was recently released from the hospital following a one-week admission for CHF. He takes Lasix 80 mg daily but today took an extra 80 mg for a total of 160 mg. He's had orthopnea, been sleeping in the recliner and spending the day of the recliner as well but assures me he's had his feet up. He's had to increase his oxygen supplementation from chronic 2 L up to 4 L. Timing/Duration: constant Severity: moderate Modifying Factors: Improves With Coughing Associated Symptoms: cough, shortness of breath Allergies and Home Medications Allergies Coded Allergies: Sulfa (Sulfonamide Antibiotics) (Verified Allergy, Unknown, 10/04/19) Home Medications Acetaminophen 650 Mg Tablet.er, 650-1,300 MG PO Q8H PRN for PAIN-MILD (1-4), (Re ported) Albuterol Sulfate 8.5 Gm Hfa.aer.ad, 1-2 PUFF IH Q4H PRN for WHEEZING, (Reported) Albuterol Sulfate 2.5 Mg/0.5 Ml Vial.neb, 2.5 MG NEB Q4H PRN for SHORTNESS OF BREATH, (Reported) Amiodarone HCl 200 Mg Tablet, 200 MG PO BID, (Reported) Amlodipine Besylate 5 Mg Tablet, 5 MG PO DAILY, (Reported) Apixaban 5 Mg Tablet, 5 MG PO BID, (Reported) Bisacodyl 5 Mg Tablet.dr, 5 MG PO DAILY PRN for CONSTIPATION-4TH LINE, (Reported) Buspirone HCl 5 Mg Tablet, 5 MG PO TID PRN for ANXIETY, (Reported) Diltiazem HCl 120 Mg Cap.er.24h, 120 MG PO DAILY, (Reported) Enalapril Maleate 20 Mg Tablet, 20 MG PO DAILY, (Reported) Fluticasone Propion/Salmeterol 1 Each Blst.w.dev, 1 PUFF IN BID, (Reported) Furosemide 80 Mg Tablet, 80 MG PO DAILY, (Reported) Metoprolol Tartrate 100 Mg Tablet, 100 MG PO BID, (Reported) Potassium Chloride 10 Meq Tablet.er, 10 MEQ PO DAILY, (Reported) Prednisone 20 Mg Tab, 40 MG PO DAILY Prescribed by: DEMARIO TO on 04/09/20 1027 Patient Home Medication List Home Medication List Reviewed: Yes Review of Systems Review of Systems Constitutional: see HPI; No chills, No fever EENTM: see HPI Respiratory: see HPI; No cough; dyspnea on exertion, orthopnea, short of breath Cardiovascular: see HPI; No chest pain; edema Genitourinary: no symptoms reported Musculoskeletal: no symptoms reported Skin: no symptoms reported Psychiatric/Neurological: No Symptoms Reported Hematologic/Lymphatic: No Symptoms Reported Immunological/Allergic: no symptoms reported Past Torbykl-Ioknvh-Slwany Hx Patient Social History Alcohol Use: Occasionally Uses Number of Drinks Today: AA Alcohol Beverage of Choice: Beer Recreational Drug Use: No Drug of Choice: THC ON A REGULAR BASIS, SINCE THE Smoking Status: Former Smoker Type Used: Cigarettes Former Smoker, Quit: Jan 13, 2009 2nd Hand Smoke Exposure: No Recent Hopitalizations: Yes (08/2019) Immunizations Up To Date Tetanus Booster (TDap): Unknown PED Vaccines UTD: No Date of Pneumonia Vaccine: Aug 30, 2019 Date of Influenza Vaccine: Aug 30, 2019 Seasonal Allergies Seasonal Allergies: Yes Past Medical History Surgeries: Yes (left knee replaced x2, right TKR, shoulder sx) Appendectomy, Cardiac, Orthopedic Respiratory: Yes COPD Currently Using CPAP: No Currently Using BIPAP: No Cardiac: Yes Atrial Fibrillation, Chronic Edema/Swelling, Hypertension, Palpitations, Valvular Heart Disease Neurological: No Reproductive Disorders: No Genitourinary: No Gastrointestinal: No Musculoskeletal: Yes (BILATERAL KNEE SURGERIES, RIGHT SHOULDER SURGERIES) Arthritis Endocrine: No HEENT: No Cancer: No Psychosocial: Yes Anxiety Integumentary: No Blood Disorders: No Adverse Reaction/Blood Tranf: No Family Medical History Asbestosis FH: CABG (coronary artery bypass surgery) 19 FATHER FH: breast cancer 19 MOTHER FH: uterine cancer 19 MOTHER Hypertension 19 FATHER Heart Disease, Cancer, Hypertension Physical Exam Vital Signs - First Documented 04/15/20 15:15 Temp 36.5 Pulse 48 Resp 18 B/P (MAP) 127/65 (85) Pulse Ox 97 O2 Delivery Nasal Cannula O2 Flow Rate 4.00 Capillary Refill : Height: 5'9.00" Weight: 215lbs. 0.0oz. 97.152949oy; 32.26 BMI Method:Stated General Appearance: WD/WN, no apparent distress, other (no distress lungs are clear speaks in full sentences. He does have 3+ pitting edema up to the knees bilaterally. Has difficulty standing to get from EMS cot to our bed. He is unable to do this without standby assistance of 2 people.) Eyes: Bilateral Eye Normal Inspection, Bilateral Eye PERRL, Bilateral Eye EOMI Respiratory: normal breath sounds, no respiratory distress, no accessory muscle use Cardiovascular: regular rate, rhythm, no murmur Gastrointestinal: normal bowel sounds, non tender, soft Neurologic/Psychiatric: alert, normal mood/affect, oriented x 3 Skin: normal color, warm/dry Progress/Results/Core Measures Suspected Sepsis SIRS Temperature: Pulse: Respiratory Rate: Laboratory Tests 04/15/20 15:12: White Blood Count 13.1H Blood Pressure / Mean: Laboratory Tests 04/15/20 15:12: Creatinine 1.61H, Platelet Count 235, Total Bilirubin 0.5 Results/Orders Lab Results Laboratory Tests Test 04/15/20 15:12 Range/Units White Blood Count 13.1 H 4.3-11.0 10^3/uL Red Blood Count 3.38 L 4.35-5.85 10^6/uL Hemoglobin 9.4 L 13.3-17.7 G/DL Hematocrit 31 L 40-54 % Mean Corpuscular Volume 91 80-99 FL Mean Corpuscular Hemoglobin 28 25-34 PG Mean Corpuscular Hemoglobin Concent 31 L 32-36 G/DL Red Cell Distribution Width 17.2 H 10.0-14.5 % Platelet Count 235 130-400 10^3/uL Mean Platelet Volume 11.8 H 7.4-10.4 FL Neutrophils (%) (Auto) 79 H 42-75 % Lymphocytes (%) (Auto) 8 L 12-44 % Monocytes (%) (Auto) 11 0-12 % Eosinophils (%) (Auto) 2 0-10 % Basophils (%) (Auto) 0 0-10 % Neutrophils # (Auto) 10.3 H 1.8-7.8 X 10^3 Lymphocytes # (Auto) 1.1 1.0-4.0 X 10^3 Monocytes # (Auto) 1.4 H 0.0-1.0 X 10^3 Eosinophils # (Auto) 0.3 0.0-0.3 10^3/uL Basophils # (Auto) 0.0 0.0-0.1 10^3/uL Urine Color YELLOW Urine Clarity CLEAR Urine pH 7.0 5-9 Urine Specific [place] 1.015 L 1.016-1.022 Urine Protein NEGATIVE NEGATIVE Urine Glucose (UA) NEGATIVE NEGATIVE Urine Ketones NEGATIVE NEGATIVE Urine Nitrite NEGATIVE NEGATIVE Urine Bilirubin NEGATIVE NEGATIVE Urine Urobilinogen 0.2 < = 1.0 MG/DL Urine Leukocyte Esterase NEGATIVE NEGATIVE Urine RBC (Auto) NEGATIVE NEGATIVE Urine RBC NONE /HPF Urine WBC NONE /HPF Urine Squamous Epithelial Cells RARE /HPF Urine Crystals NONE /LPF Urine Bacteria NEGATIVE /HPF Urine Casts NONE /LPF Urine Mucus NEGATIVE /LPF Urine Culture Indicated NO Sodium Level 138 135-145 MMOL/L Potassium Level 5.1 H 3.6-5.0 MMOL/L Chloride Level 100 98-107 MMOL/L Carbon Dioxide Level 26 21-32 MMOL/L Anion Gap 12 5-14 MMOL/L Blood Urea Nitrogen 29 H 7-18 MG/DL Creatinine 1.61 H 0.60-1.30 MG/DL Estimat Glomerular Filtration Rate 42 BUN/Creatinine Ratio 18 Glucose Level 95 70-105 MG/DL Calcium Level 8.1 L 8.5-10.1 MG/DL Corrected Calcium 8.4 L 8.5-10.1 MG/DL Magnesium Level 2.8 H 1.6-2.4 MG/DL Total Bilirubin 0.5 0.1-1.0 MG/DL Aspartate Amino Transf (AST/SGOT) 20 5-34 U/L Alanine Aminotransferase (ALT/SGPT) 19 0-55 U/L Alkaline Phosphatase 67 40-136 U/L Troponin I 0.038 H <0.028 NG/ML B-Type Natriuretic Peptide 780.3 H <100.0 PG/ML Total Protein 6.6 6.4-8.2 GM/DL Albumin 3.6 3.2-4.5 GM/DL My Orders Orders - MARCELINO BOUDREAUX AUTO SERVICER Cbc With Automated Diff (04/15/20 15:13) Comprehensive Metabolic Panel (04/15/20 15:13) Ua Culture If Indicated (04/15/20 15:13) BNP (04/15/20 15:13) Troponin I (04/15/20 15:13) Chest 1 View, Ap/Pa Only (04/15/20 15:13) Magnesium (04/15/20 15:13) Vital Signs/I&O 04/15/20 15:15 Temp 36.5 Pulse 48 Resp 18 B/P (MAP) 127/65 (85) Pulse Ox 97 O2 Delivery Nasal Cannula O2 Flow Rate 4.00 Capillary Refill : Diagnostic Imaging Diagonstic Imaging: Xray Plain Films/CT/US/NM/MRI: chest Comments NAME: VALDO KRUGER [facility] REC#: [id number] PT STATUS: REG ER : 1945 PHYSICIAN: MARCELINO BOUDREAUX APRN ADMIT DATE: 04/15/20/ER Draft Date of Exam:04/15/20 CHEST 1 VIEW, AP/PA ONLY INDICATION: Shortness of breath. EXAMINATION: Portable erect AP chest at 3:32 p.m. FINDINGS: The cardiomegaly and the pulmonary congestion, noted on the prior exam of 04/06/2020, are again evident and not significantly changed. The atelectasis/infiltrate and fluid in the right lung base, however, may be slightly greater than on the prior exam. Conversely the left lung base does seem better aerated; however, there is now a new vague area of increased density overlying the left midlung. This does suggest a new area of pneumonia/atelectasis. The mediastinum is not widened. The osseous structures are intact. IMPRESSION: There are mixed results. There is somewhat greater involvement of the right lung base by atelectasis/infiltrate and fluid than noted on the prior exam and a new area of pneumonia has developed in the left midlung. However, the left lung base does seem better aerated. A follow-up study would be recommended for continued evaluation. Dictated on workstation # [id number] Dict: 04/15/20 1543 Trans: 04/15/20 1556 [facility] [id number] Interpreted by: SAHIL GUIDRY MD Electronically signed by: Departure Impression Primary Impression: CHF exacerbation Qualified Codes: I50.9 - Heart failure, unspecified Additional Impression: Pneumonia Disposition: ADMITTED INPATIENT Condition: Stable Admissions Decision to Admit Reason: Admit from ER (General) Decision to Admit/Date: April 15, 2020 Time/Decision to Admit Time: 16:02 Departure-Patient Inst. Referrals: GEM YEPEZ MD (PCP/Family) Primary Care Physician MARCELINO BOUDREAUX APRN April 15, 2020 15:20
[2020-04-15 15:35] LABS: BASOPHILS % (AUTO) 0 % (0-10); EOSINOPHILS # (AUTO) 0.3 10^3/uL (0.0-0.3); EOSINOPHILS % (AUTO) 2 % (0-10); HEMATOCRIT 31 % (40-54); HEMOGLOBIN 9.4 G/DL (13.3-17.7); LYMPHOCYTES # (AUTO) 1.1 X 10^3 (1.0-4.0); LYMPHOCYTES % (AUTO) 8 % (12-44); MEAN CORPUSCULAR HEMOGLOBIN 28 PG (25-34); MEAN CORPUSCULAR HGB CONC 31 G/DL (32-36); MEAN CORPUSCULAR VOLUME 91 FL (80-99); MEAN PLATELET VOLUME 11.8 FL (7.4-10.4); MONOCYTES # (AUTO) 1.4 X 10^3 (0.0-1.0); MONOCYTES % (AUTO) 11 % (0-12); NEUTROPHILS # (AUTO) 10.3 X 10^3 (1.8-7.8); NEUTROPHILS % (AUTO) 79 % (42-75); PLATELET COUNT 235 10^3/uL (130-400); RED CELL DISTRIBUTION WIDTH 17.2 % (10.0-14.5); WHITE BLOOD COUNT 13.1 10^3/uL (4.3-11.0)
[2020-04-15 15:36] LABS: BILIRUBIN,URINE NEGATIVE (NEGATIVE); CLARITY,URINE CLEAR; COLOR,URINE YELLOW; GLUCOSE, URINE (UA) NEGATIVE (NEGATIVE); KETONES,URINE NEGATIVE (NEGATIVE); LEUKOCYTE ESTERASE ,URINE NEGATIVE (NEGATIVE); NITRITE,URINE NEGATIVE (NEGATIVE); PROTEIN,URINE NEGATIVE (NEGATIVE)
[2020-04-15 15:37] LABS: ALBUMIN 3.6 GM/DL (3.2-4.5)
[2020-04-15 15:38] LABS: POTASSIUM 5.1 MMOL/L (3.6-5.0)
[2020-04-15 15:39] LABS: CALCIUM 8.1 MG/DL (8.5-10.1)
[2020-04-15 15:40] LABS: TOTAL PROTEIN 6.6 GM/DL (6.4-8.2)
[2020-04-15 15:42] LABS: BILIRUBIN,TOTAL 0.5 MG/DL (0.1-1.0)
[2020-04-15 15:44] LABS: BACTERIA,URINE NEGATIVE /HPF; CREATININE SERUM 1.61 MG/DL (0.60-1.30); SQUAMOUS EPITHELIAL CELL,UR RARE /HPF
[2020-04-15 15:46] LABS: MAGNESIUM 2.8 MG/DL (1.6-2.4)
--- NOTE | 2020-04-15 15:57 | Diagnostic Imaging Report ---
INDICATION: Shortness of breath. EXAMINATION: Portable erect AP chest at 3:32 p.m. FINDINGS: The cardiomegaly and the pulmonary congestion, noted on the prior exam of 04/06/2020, are again evident and not significantly changed. The atelectasis/infiltrate and fluid in the right lung base, however, may be slightly greater than on the prior exam. Conversely the left lung base does seem better aerated; however, there is now a new vague area of increased density overlying the left midlung. This does suggest a new area of pneumonia/atelectasis. The mediastinum is not widened. The osseous structures are intact. IMPRESSION: There are mixed results. There is somewhat greater involvement of the right lung base by atelectasis/infiltrate and fluid than noted on the prior exam and a new area of pneumonia has developed in the left midlung. However, the left lung base does seem better aerated. A follow-up study would be recommended for continued evaluation. Dictated by: Dictated on workstation # [id number]
[2020-04-15] MEDS ORDERED: CEFEPIME INJECTION 2,000 MG in WATER (STERILE) FOR INJECTION 20 ML IV ONE (16:15)
--- NOTE | 2020-04-15 16:48 | NUR ---
Report called to Roge MARTINEZ
[2020-04-15 17:34] VITALS: BP 139/77
[2020-04-15] MEDS ORDERED: RT-ALBUTEROL/IPRATROPIUM 3 ML (DUONEB) VIAL INH PRN (18:45)
[2020-04-15 19:51] VITALS: BP 130/70
[2020-04-15] MEDS: meTOprolol TARTRATE 50 MG (LOPRESSOR) TAB PO SCH (21:03)
--- NOTE | 2020-04-15 21:03 | NUR ---
HELD METOPROLOL THIS PM D/T PT HAVING A PULSE OF 48. BLOOD PRESSURE 130/70 AT THIS TIME. WILL CONTINUE TO MONITOR.
[2020-04-15] MEDS: APIXABAN 5 MG (ELIQUIS) TABLET PO SCH (21:09)
[2020-04-15] MEDS: AMIODARONE 200 MG (CORDARONE) TAB PO SCH (21:09)
[2020-04-15] MEDS: RT-ALBUTEROL/IPRATROPIUM 3 ML (DUONEB) VIAL INH SCH (21:30)
[2020-04-15 23:55] VITALS: BP 145/65
[2020-04-16] VITALS (8 sets, daily range): BP systolic 120–136; BP diastolic 60–90
[2020-04-16] MEDS: RT-ALBUTEROL/IPRATROPIUM 3 ML (DUONEB) VIAL INH SCH ×5 (02:52→21:54)
[2020-04-16] MEDS: CEFEPIME 2,000 MG/SWFI 20 ML IV PUSH IV SCH ×4 (04:24→16:17)
[2020-04-16 05:26] LABS: BASOPHILS % (AUTO) 0 % (0-10); EOSINOPHILS # (AUTO) 0.3 10^3/uL (0.0-0.3); EOSINOPHILS % (AUTO) 3 % (0-10); HEMATOCRIT 28 % (40-54); HEMOGLOBIN 8.6 G/DL (13.3-17.7); LYMPHOCYTES # (AUTO) 0.9 X 10^3 (1.0-4.0); LYMPHOCYTES % (AUTO) 8 % (12-44); MEAN CORPUSCULAR HGB CONC 31 G/DL (32-36); MEAN CORPUSCULAR VOLUME 90 FL (80-99); MEAN PLATELET VOLUME 11.8 FL (7.4-10.4); MONOCYTES % (AUTO) 10 % (0-12); NEUTROPHILS # (AUTO) 8.6 X 10^3 (1.8-7.8); NEUTROPHILS % (AUTO) 80 % (42-75); PLATELET COUNT 210 10^3/uL (130-400); RED CELL DISTRIBUTION WIDTH 17.2 % (10.0-14.5); WHITE BLOOD COUNT 10.8 10^3/uL (4.3-11.0)
[2020-04-16 05:31] LABS: MEAN CORPUSCULAR HEMOGLOBIN 27 PG (25-34)
[2020-04-16 05:40] LABS: POTASSIUM 4.7 MMOL/L (3.6-5.0)
[2020-04-16 05:41] LABS: CALCIUM 8.2 MG/DL (8.5-10.1)
[2020-04-16 05:45] LABS: CREATININE SERUM 1.47 MG/DL (0.60-1.30)
[2020-04-16] MEDS: FUROSEMIDE 40 MG/4 ML INJ (LASIX) IV SCH (06:26)
[2020-04-16] MEDS: APIXABAN 5 MG (ELIQUIS) TABLET PO SCH ×2 (09:34→22:17)
[2020-04-16] MEDS: dilTIAZem120 MG (CARDIZEM CD) CAP PO SCH (09:34)
[2020-04-16] MEDS: AMIODARONE 200 MG (CORDARONE) TAB PO SCH ×2 (09:34→22:17)
[2020-04-16] MEDS: meTOprolol TARTRATE 50 MG (LOPRESSOR) TAB PO SCH ×2 (09:35→22:17)
[2020-04-16] MEDS ORDERED: FUROSEMIDE 40 MG/4 ML INJ (LASIX) IVP NR (09:45)
--- NOTE | 2020-04-16 10:00 | Consultation-Cardiology ---
HPI-Cardiology Cardiology Consultation: Date of Consultation 04/16/20 Date of Admission Attending Physician Demario To MD Admitting Physician Wilfredo Blair MD Consulting Physician Marta HERNANDEZ MD HPI: Time Seen by a Provider: 09:54 Chief Complaint: Shortness of breath This is a pleasant 74-year-old gentleman who I follow in the office as well. He has history of CABG, chronic diastolic congestive heart failure. He had a recent admission for congestive heart failure. He was discharged on an increased dose of Lasix. He was taking 80 mg of Lasix however the patient noted gradual decreased urine output and worsening shortness of breath. He took an extra dose of 80 mg with no significant improvement. He also complained of orthopnea, increased lower extremity swelling. Increased oxygen requirement. He denies any chest pain. He denies active smoking. No recent change in family history. Coronary angiography done late 2018 which did not require any PCI. Review of Systems-Cardiology Review of Systems Constitutional: As described under HPI; No As described under HPI, No no symptoms reported, No chills, No fever, No lightheadedness Eyes: No As described under HPI, No no symptoms reported, No blindness, No blurred vision, No contact lenses, No drainage, No decreased acuity, No foreign body sensation, No pain, No vision change Ears/Nose/Throat: No As described under HPI, No no symptoms reported, No chronic hearing loss, No ear discharge, No ear pain, No nasal drainage, No ulcerations Respiratory: No no symptoms reported; As described under HPI; No As described under HPI, No cough; orthopnea; No shortness of breath, No SOB with excertion; SOB at rest Cardiovascular: No no symptoms reported; As described under HPI; No As described under HPI, No chest pain; edema; No irregular heart rate, No lightheadedness, No palpitations Gastrointestinal: No no symptoms reported, No As described under HPI, No abdomen distended, No abdominal pain, No blood streaked bowels, No constipation, No diarrhea, No nausea, No vomiting, No stool coloration changes Genitourinary: No As described under HPI, No burning, No dysuria, No discharge, No frequency, No flank pain, No hematuria, No urgency Skin: No rash, No skin related problems, No ulcerations Psychiatric/Neurological: No anxiety, No depression, No seizure, No focal weakness, No syncope Hematologic: No bleeding abnormalities YXT-Dgwvzs-Tiscmk Hx Patient Social History Alcohol Use: Occasionally Uses Recreational Drug Use: No Drug of Choice: THC ON A REGULAR BASIS, SINCE THE 1959'S Smoking Status: Former Smoker Type Used: Cigarettes 2nd Hand Smoke Exposure: No Recent Foreign Travel: No Recent Infectious Disease Expo: No Immunizations Up To Date Tetanus Booster (TDap): Unknown Date of Pneumonia Vaccine: Aug 30, 2019 Date of Influenza Vaccine: Aug 30, 2019 Past Medical History PMH As described under Assessment. Family Medical History Family History: Asbestosis FH: CABG (coronary artery bypass surgery) 19 FATHER FH: breast cancer 19 MOTHER FH: uterine cancer 19 MOTHER Hypertension 19 FATHER Allergies and Home Medications Allergies Coded Allergies: Sulfa (Sulfonamide Antibiotics) (Verified Allergy, Unknown, 10/04/19) Home Medications Acetaminophen 650 Mg Tablet.er, 650-1,300 MG PO Q8H PRN for PAIN-MILD (1-4), (Reported) Albuterol Sulfate 8.5 Gm Hfa.aer.ad, 1-2 PUFF IH Q4H PRN for WHEEZING, (Reported ) Albuterol Sulfate 2.5 Mg/0.5 Ml Vial.neb, 2.5 MG NEB Q4H PRN for SHORTNESS OF BREATH, (Reported) Amiodarone HCl 200 Mg Tablet, 200 MG PO BID, (Reported) Amlodipine Besylate 5 Mg Tablet, 5 MG PO DAILY, (Reported) Apixaban 5 Mg Tablet, 5 MG PO BID, (Reported) Bisacodyl 5 Mg Tablet.dr, 5 MG PO DAILY PRN for CONSTIPATION-4TH LINE, (Reported) Buspirone HCl 5 Mg Tablet, 5 MG PO TID PRN for ANXIETY, (Reported) Diltiazem HCl 120 Mg Cap.er.24h, 120 MG PO DAILY, (Reported) Enalapril Maleate 20 Mg Tablet, 20 MG PO DAILY, (Reported) Fluticasone Propion/Salmeterol 1 Each Blst.w.dev, 1 PUFF IN BID, (Reported) Furosemide 80 Mg Tablet, 80 MG PO DAILY, (Reported) Metoprolol Tartrate 100 Mg Tablet, 100 MG PO BID, (Reported) Potassium Chloride 10 Meq Tablet.er, 10 MEQ PO DAILY, (Reported) Prednisone 20 Mg Tab, 40 MG PO DAILY Prescribed by: DEMARIO TO on 04/09/20 1027 Patient Home Medication List Home Medication List Reviewed: Yes Physical Exam-Cardiology Physical Exam Vital Signs/I&O 04/15/20 04/16/20 04/16/20 04/16/20 23:55 03:50 08:45 09:12 Temp 36.7 36.9 36.4 Pulse 53 52 53 Resp 19 20 18 B/P (MAP) 145/65 (91) 130/63 (85) 136/68 (90) Pulse Ox 95 93 95 98 O2 Delivery Nasal Cannula Nasal Cannula Nasal Cannula Nasal Cannula O2 Flow Rate 2.00 2.00 2.00 4.00 04/16/20 00:00 Intake Total 660 ml Output Total 650 ml Balance 10 ml Capillary Refill : Less Than 3 Seconds Constitutional: appears stated age; No apparent distress; well-developed, well- nourished HEENT: PERRL; No discharge; hearing is well preserved, oral hygience is good; No ulceration, No xanthelasmas are seen Neck: No carotid bruit; carotid pulses are 2 + bilaterally Respiratory: chest is bilaterally symmetric; No rhonchi, No rales, No stridor, No wheezing, No pleural rub; other (coarse breathing bilaterally. No acute rhonchi heard) Cardiovascular: regular rate-rhythm, S1 and S2, systolic murmur Gastrointestinal: soft, audible bowel sounds; No spleenomegaly Rectal: deferred Extremities: normal range of motion, non-tender, normal inspection, pedal edema; No clubbing, No cyanosis; significant edema Neurologic/Psychiatric: no motor/sensory deficits, alert, normal mood/affect, oriented x 3, power is 5/5 both on sides Skin: normal color, warm/dry; No rash, No ulcerations Data Review Labs Laboratory Tests 04/15/20 15:12: White Blood Count 13.1H, Red Blood Count 3.38L, Hemoglobin 9.4L, Hematocrit 31L, Mean Corpuscular Volume 91, Mean Corpuscular Hemoglobin 28, Mean Corpuscular Hemoglobin Concent 31L, Red Cell Distribution Width 17.2H, Platelet Count 235, Mean Platelet Volume 11.8H, Neutrophils (%) (Auto) 79H, Lymphocytes (%) (Auto) 8L, Monocytes (%) (Auto) 11, Eosinophils (%) (Auto) 2, Basophils (%) (Auto) 0, Neutrophils # (Auto) 10.3H, Lymphocytes # (Auto) 1.1, Monocytes # (Auto) 1.4H, Eosinophils # (Auto) 0.3, Basophils # (Auto) 0.0, Urine Color YELLOW, Urine Clarity CLEAR, Urine pH 7.0, Urine Specific [place] 1.015L, Urine Protein NEGATIVE, Urine Glucose (UA) NEGATIVE, Urine Ketones NEGATIVE, Urine Nitrite NEGATIVE, Urine Bilirubin NEGATIVE, Urine Urobilinogen 0.2, Urine Leukocyte Esterase NEGATIVE, Urine RBC (Auto) NEGATIVE, Urine RBC NONE, Urine WBC NONE, Urine Squamous Epithelial Cells RARE, Urine Crystals NONE, Urine Bacteria NEGATIVE, Urine Casts NONE, Urine Mucus NEGATIVE, Urine Culture Indicated NO, Sodium Level 138, Potassium Level 5.1H, Chloride Level 100, Carbon Dioxide Level 26, Anion Gap 12, Blood Urea Nitrogen 29H, Creatinine 1.61H, Estimat Glomerular Filtration Rate 42, BUN/Creatinine Ratio 18, Glucose Level 95, Calcium Level 8.1L, Corrected Calcium 8.4L, Magnesium Level 2.8H, Total Bilirubin 0.5, Aspartate Amino Transf (AST/SGOT) 20, Alanine Aminotransferase (ALT/SGPT) 19, Alkaline Phosphatase 67, Troponin I 0.038H, B-Type Natriuretic Peptide 780.3H, Total Protein 6.6, Albumin 3.6, Procalcitonin 0.08 04/15/20 17:01: Lactic Acid Level 1.12 04/16/20 04:31: White Blood Count 10.8, Red Blood Count 3.13L, Hemoglobin 8.6L, Hematocrit 28L, Mean Corpuscular Volume 90, Mean Corpuscular Hemoglobin 27, Mean Corpuscular Hemoglobin Concent 31L, Red Cell Distribution Width 17.2H, Platelet Count 210, Mean Platelet Volume 11.8H, Neutrophils (%) (Auto) 80H, Lymphocytes (%) (Auto) 8L, Monocytes (%) (Auto) 10, Eosinophils (%) (Auto) 3, Basophils (%) (Auto) 0, Neutrophils # (Auto) 8.6H, Lymphocytes # (Auto) 0.9L, Monocytes # (Auto) 1.0, Eosinophils # (Auto) 0.3, Basophils # (Auto) 0.0, Sodium Level 138, Potassium Level 4.7, Chloride Level 101, Carbon Dioxide Level 25, Anion Gap 12, Blood Urea Nitrogen 25H, Creatinine 1.47H, Estimat Glomerular Filtration Rate 47, BUN/Creatinine Ratio 17, Glucose Level 87, Calcium Level 8.2L ECG Impression ECG Initial ECG Rhythm: Normal Sinus Comment Prolonged ME interval. No acute ST-T wave abnormalities. A/P-Cardiology Assessment/Admission Diagnosis Acute on chronic diastolic congestive heart failure, Khiy-ea-mxlramap mitral regurgitation, Acute on chronic kidney disease, COPD exacerbation, Pneumonia, CAD/CABG. Plan Acute on chronic diastolic CHF, recent echocardiogram on 03/2020 showed moderate to severe diastolic dysfunction. Increasing dose of Lasix not effective. Add Zaroxolyn. Follow BUN/creatinine. Strict input/output. Salt and fluid restriction. Minimal troponin elevation, type 2 UT, likely due to CHF Anemia of undetermined etiology PAF, s/p cardioversion on 08/15/2019. 30 day MCOT completed on 05/05/2019 which showed low-grade ectopy. 1 refill episode of nonsustained VT for 5 beats. PSVT for 7 beats. Brief episodes of possible atrial fibrillation. On Amiodarone and Eliquis. Cardizem. ILR is recommended as an outpatient. Echocardiogram done on 03/2020 showed mild concentric LVH with an EF of 55-65 percent. Moderate to severe diastolic dysfunction. Severely dilated left atrium. Bqkn-qh-wtndyynp aortic regurgitation. Moderate tricuspid regurgitation. Hypertension PVCs, by history COPD - oxygen dependent Mild to moderate CAD. Left heart catheterization was done on 10/04/2019 which showed mild to moderate proximal LAD disease. FFR was done which was 0.85. PCI was deferred. New pneumonia on chest x-ray with leukocytosis. Normal lactic acid. Defer to the primary team. Acute on chronic kidney disease, we will monitor electrolytes and BUN/creatinine very closely considering that we are increasing the dose of diuretics. Thank you for your consultation. Please call me if you have any questions. Jaz Hernandez MD, FACP, FACC, FSCAI, FHRS, CCDS Interventional Cardiology Cardiac Electrophysiology Vascular Medicine and Endovascular Interventions Clinical Quality Measures DVT/VTE Risk/Contraindication: Risk Factor Score Per Nursin RFS Level Per Nursing on Admit: 4+=Very High Marta HERNANDEZ MD April 16, 2020 10:00
--- NOTE | 2020-04-16 10:20 | NUR ---
SPOKE WITH THE PT AND WENT THRU THE EXT MED HISTORY TO COMPLETE THE MED REC THE PT WAS RECENTLY HERE AND I INTERVIEWED HIM ON 04-09-2020 AND COMPLETED THE MED REC THEN. WHEN THE PATIENT WAS DISCHARGED ON 04-09-2020 HE WAS PRESCRIBED PREDNISONE 20MG #6/3DS HE STARTED AND HAS FINISHED THE THERAPY POTASSIUM ER 10MEQ- DIRECTIONS FROM [facility] IS 1 TAB BID HOWEVER THE PT IS TAKING 1 TAB DAILY OTC MEDS: TYLENOL 650MG DULCOLAX
[2020-04-16] MEDS: METOLAZONE 5 MG (ZAROXOLYN) TAB PO SCH (10:55)
--- NOTE | 2020-04-16 11:34 | History & Physical-Hospitalist ---
History of Present Illness HPI/Chief Complaint Pt is a 74yoCM known to me from multiple admissions who presented to the ER due to swelling and shortness of breath. He was just discharged from the hospital on 04/09 for CHF. He did well for a couple of days but then over the last 2-3 days he developed worsening swelling of his legs and worsening orthopnea. He reports compliance with his medications and even took extra lasix yesterday. He also denies any changes in his eating habits. He does not watch his fluid intact though. Source: patient Date Seen 04/16/20 Time Seen by a Provider: 11:17 Attending Physician Genia Lamb MD PCP Wilfredo Blair MD Referring Physician Date of Admission April 15, 2020 at 16:09 Home Medications & Allergies Home Medications Reviewed patient Home Medication Reconciliation performed by pharmacy medication reconciliations pathology lab technician and/or nursing. Patients Allergies have been reviewed. Allergies Allergies Coded Allergies Sulfa (Sulfonamide Antibiotics) (Verified Allergy, Unknown, 10/04/19) Past Lqvqggz-Rvgmdj-Bigjot Hx Past Med/Social Hx: Reviewed Nursing Past Med/Soc Hx Patient Social History Marrital Status: single Employed/Student: retired Alcohol Use: Occasionally Uses Alcohol Beverage of Choice: Beer Recreational Drug Use: No Drug of Choice: THC ON A REGULAR BASIS, SINCE THE S Smoking Status: Former Smoker Former Smoker, Quit: Jan 13, 2009 Type Used: Cigarettes 2nd Hand Smoke Exposure: No Recent Foreign Travel: No Contact w/other who traveled: No Recent Hopitalizations: Yes (08/2019) Recent Infectious Disease Expo: No Immunizations Up To Date Tetanus Booster (TDap): Unknown Pediatric: No Date of Pneumonia Vaccine: Aug 30, 2019 Date of Influenza Vaccine: Aug 30, 2019 Seasonal Allergies Seasonal Allergies: Yes Past Medical History Surgeries: Appendectomy, Cardiac, Orthopedic Respiratory: COPD Currently Using CPAP: No Currently Using BIPAP: No Cardiac: Atrial Fibrillation, Chronic Edema/Swelling, Hypertension, Palpitations, Valvular Heart Disease Reproductive: No Musculoskeletal: Arthritis Psychosocial: Anxiety History of Blood Disorders: No Adverse Reaction to Blood Elder: No Family History Reviewed Nursing Family Hx Asbestosis FH: CABG (coronary artery bypass surgery) 19 FATHER FH: breast cancer 19 MOTHER FH: uterine cancer 19 MOTHER Hypertension 19 FATHER Heart Disease, Cancer, Hypertension Review of Systems Constitutional: No chills, No fever; weakness EENTM: no symptoms reported Respiratory: cough, dyspnea on exertion, orthopnea, short of breath Cardiovascular: No chest pain; edema, Hx of Intervention; No palpitations Gastrointestinal: No abdominal pain, No constipation, No diarrhea, No nausea, No vomiting Genitourinary: decreased output Musculoskeletal: no symptoms reported Skin: no symptoms reported Psychiatric/Neurological: No Symptoms Reported Physical Exam Physical Exam Vital Signs Vital Signs - First Documented 04/15/20 18:02 FiO2 2 Capillary Refill : Less Than 3 Seconds Height, Weight, BMI Height: 5'9.00" Weight: 215lbs. 0.0oz. 97.775345jm; 35.85 BMI Method:Stated General Appearance: No Apparent Distress, WD/WN HEENT: PERRL/EOMI, Moist Mucous Membranes; No Scleral Icterus (L), No Scleral Icterus (R) Neck: Supple; No Thyromegaly Respiratory: Lungs Clear, No Accessory Muscle Use, No Respiratory Distress Cardiovascular: Regular Rate, Rhythm, No Murmur Gastrointestinal: Normal Bowel Sounds, Non Tender, Soft Extremity: Pedal Edema, Swelling (4+ to knees) Neurologic/Psychiatric: Alert, Oriented x3, Normal Mood/Affect Skin: Normal Color, Warm/Dry Results Results/Procedures Labs Laboratory Tests 04/16/20 04:31 04/17/20 12:45 Patient resulted labs reviewed. Imaging: Reviewed Imaging Report Imaging Date of Exam:04/15/20 CHEST 1 VIEW, AP/PA ONLY INDICATION: Shortness of breath. EXAMINATION: Portable erect AP chest at 3:32 p.m. FINDINGS: The cardiomegaly and the pulmonary congestion, noted on the prior exam of 04/06/2020, are again evident and not significantly changed. The atelectasis/infiltrate and fluid in the right lung base, however, may be slightly greater than on the prior exam. Conversely the left lung base does seem better aerated; however, there is now a new vague area of increased density overlying the left midlung. This does suggest a new area of pneumonia/atelectasis. The mediastinum is not widened. The osseous structures are intact. IMPRESSION: There are mixed results. There is somewhat greater involvement of the right lung base by atelectasis/infiltrate and fluid than noted on the prior exam and a new area of pneumonia has developed in the left midlung. However, the left lung base does seem better aerated. A follow-up study would be recommended for continued evaluation Assessment/Plan Admission Diagnosis Acutely Decompensated Diastolic Heart Failure Admission Status: Inpatient Order (span 2 midnights) Reason for Inpatient Admission: iv diuretics Assessment and Plan Acutely Decompensated Diastolic Heart Failure Acute on Chronic Hypoxic Respiratory Failure Afib HTN NSTEMI Type II Continue lasix Metolazone added by cardiology Fluid restriction Continue home Cardizem, amiodarone, and metoprolol Eliquis for stroke ppx Currently in sinus on tele Cardiology consulted, appreciate recs Titrate oxygen as able COPD RLL Pneumonia Continue on Cefepime leukocytosis resolved MAT protocol Wean oxygen as able Advair CKD stage 3a Creatiine improved from yesterday Trend with addition of Metolazone Weakness PT/OT May need IRU or DC to supervised facility as he did well there until Diagnosis/Problems Diagnosis/Problems (1) CHF exacerbation Status: Acute Qualifiers: Heart failure type: unspecified Qualified Codes: I50.9 - Heart failure, unspecified (2) Pneumonia Status: Acute (3) Debility (4) Hypertension Status: Chronic (5) Paroxysmal atrial fibrillation (6) COPD without exacerbation Status: Chronic Clinical Quality Measures DVT/VTE Risk/Contraindication: Risk Factor Score Per Nursin RFS Level Per Nursing on Admit: 4+=Very High PATRICIA REID MD April 16, 2020 11:34
[2020-04-16] MEDS ORDERED: busPIRone 5 MG (BUSPAR) TAB PO PRN (11:45)
[2020-04-16] MEDS: ACETAMINOPHEN 500 MG TAB (TYLENOL) PO PRN ×2 (12:17→19:05)
--- NOTE | 2020-04-16 14:00 | NUR ---
Pastoral care visit.
--- NOTE | 2020-04-16 14:52 | Physical Therapy Evaluation ---
PT Evaluation-General Medical Diagnosis Admission Date April 15, 2020 at 16:09 Medical Diagnosis: pneumonia/CHF Onset Date: April 15, 2020 Therapy Diagnosis Therapy Diagnosis: debility/weakness Height/Weight Height (Feet): 5 Height (Inches): 9.00 Weight (Pounds): 215 Weight (Ounces): 0.0 Precautions Precautions/Isolations: Fall Prevention, Standard Precautions Weight Bear Status Right Lower Extremity: Right Weight Bearing/Tolerated Left Lower Extremity: Left Weight Bearing/Tolerated Referral Physician: Neftaly Reason for Referral: Evaluation/Treatment Medical History Pertinent Medical History: Atrial Fib, COPD, Heart Failure, HTN, CA, Renal Insufficiency Additional Medical History recent hospital stay for CHF Current History EMS from home secondary to SOA and bilateral LE edema Reviewed History: Yes Social History Home: Single Level Current Living Status: Alone Entry Into Home: Level Entry Prior Prior Level of Function SCALE: Activities may be completed with or without assistive devices. 3-Ztsskhgvqn-tbexvfe completes the activity by him/herself with no assistance from a helper. 5-Set-up or Clean-up Assistance-helper sets up or cleans up; patient completes activity. [place] assists only prior to or following the activity. 4-Supervision or Touching Assistance-helper provides verbal cues and/or touching/steadying and/or contact guard assistance as patient completes activity. Assistance may be provided throughout the activity or intermittently. 3-Partial/Moderate Assistance-helper does LESS THAN HALF the effort. [place] lifts, holds or supports trunk or limbs, but provides less than half the effort. 2-Substantial/Maximal Assistance-helper does MORE THAN HALF the effort. [place] lifts or holds trunk or limbs and provides more than half the effort. 3-Jfvqmvcpe-khiuke does ALL the effort. Patient does none of the effort to complete the activity. Or, the assistance of 2 or more helpers is required for the patient to complete the activity. If activity was not attempted, code reason: 7-Patient Refused. 9-Not Applicable-not attempted and the patient did not perform the activity before the current illness, exacerbation or injury. 10-Not Attempted due to Environmental Limitations-(lack of equipment, weather restraints, etc.). 88-Not Attempted due to Medical Conditions or Safety Concerns. Bed Mobility: 6 Transfers (B,C,W/C): 6 Gait: 6 Indoor Mobility (Ambulation): Independent Stairs: Not Applicalbe Prior Devices Use: Walker PT Evaluation-Current Subjective Patient agrees to PT. Objective Patient Orientation: Normal For Age Attachments: Oxygen ROM/Strength ROM Lower Extremities bilateral LE WFL (noted edema) Strength Lower Extremities 4/5 grossly bilateral LE Integumentary/Posture Integumentary refer to nursing notes Bowel Incontinence: No Bladder Incontinence: No Posture trunk flexed posture in stand with FWW Neuromuscular (Tone, Coordination, Reflexes) grossly intact Sensory Vision: Functional Hearing: Functional Sensation Right Lower Extremit: Impaired Sensation Left Lower Extremity: Impaired Transfers Roll Left to Right (QC): 6 Sit to Lying (QC): 6 Lying to Sitting/Side of Bed(Q: 6 Sit to Stand (QC): 6 Chair/Mlt-rd-Liuge Xfer(QC): 6 Toilet Transfer (QC): 6 patient is up ad eric in room Gait Does the Patient Walk?: Yes Mode of Locomotion: Walk Anticipated Mode of Locomotion: Walk Walk 10 feet (QC): 6 Walk 50 ft with 2 Turns(QC): 6 Walk 150 ft (QC): 88 Distance: 100' Gait Assistive Device: FWW Comments/Gait Description extended UE's with FWW use Balance Sitting Static: Normal Sitting Dynamic: Normal Standing Static: Good Standing Dynamic: Good Assessment/Needs 74 y.o. male, will be seen short term by skilled PT to address functional mobility to ensure safe return to home. Patient is currently limited due to SOA with minimal activity on 3L O2 NC. Rehab Potential: Fair Post Rehab Potential-Barriers: compliance PT Tearoom Host Goals Custodial Goals PT Custodial Goals Time Frame: April 28, 2020 Roll Left & Right (QC): 6 Sit to Lying (QC): 6 Lying-Sitting on Side/Bed(QC): 6 Sit to Stand (QC): 6 Chair/Yyg-ks-Btbqu Xfer(QC): 6 Toilet Transfer (QC): 6 Does the Patient Walk: Yes Walk 10 feet (QC): 6 Walk 50ft with 2 Turns (QC): 6 Walk 150 ft (QC): 6 PT Plan Problem List Problem List: Activity Tolerance Treatment/Plan Treatment Plan: Continue Plan of Care Treatment Plan: Education, Functional Activity Vikas, Functional Strength, Gait, Safety, Therapeutic Exercise, Transfers Treatment Duration: April 28, 2020 Frequency: 6 times per week Estimated Hrs Per Day: .25 hour per day Patient and/or Family Agrees t: Yes Time/GCodes Time In: 1421 Time Out: 1433 Total Billed Treatment Time: 12 Total Billed Treatment 1 visit EVModC 12 min STERLING LANDAVERDE PT April 16, 2020 14:52
--- NOTE | 2020-04-16 15:35 | Occ Therapy Progress Note ---
Therapy Progress Note OT order received, chart reviewed. OT spoke with PT. PT reports that pt. is independent in room, is taking self to bathroom independently, and is able to dress LE independently. Per PT, OT not warranted at this time for ADL skills. Will continue to monitor pt. and discharge services at this time. Thank you for this referral. [id number] JEVON ELI OT April 16, 2020 15:35
[2020-04-17] MEDS: RT-ALBUTEROL/IPRATROPIUM 3 ML (DUONEB) VIAL INH SCH ×6 (02:25→21:03)
[2020-04-17] MEDS: ACETAMINOPHEN 500 MG TAB (TYLENOL) PO PRN ×3 (02:49→20:13)
[2020-04-17 03:50] VITALS: BP 124/56
[2020-04-17] MEDS: CEFEPIME 2,000 MG/SWFI 20 ML IV PUSH IV SCH ×4 (04:31→15:27)
[2020-04-17] MEDS: FUROSEMIDE 40 MG/4 ML INJ (LASIX) IV SCH (06:10)
[2020-04-17 08:00] VITALS: BP 114/56
[2020-04-17] MEDS: dilTIAZem120 MG (CARDIZEM CD) CAP PO SCH (08:57)
[2020-04-17] MEDS: METOLAZONE 5 MG (ZAROXOLYN) TAB PO SCH (08:57)
[2020-04-17] MEDS: meTOprolol TARTRATE 50 MG (LOPRESSOR) TAB PO SCH ×2 (08:57→20:13)
[2020-04-17] MEDS: APIXABAN 5 MG (ELIQUIS) TABLET PO SCH ×2 (08:57→20:12)
[2020-04-17] MEDS: AMIODARONE 200 MG (CORDARONE) TAB PO SCH ×2 (08:57→20:12)
--- NOTE | 2020-04-17 10:35 | Physical Therapy Daily Note ---
PT Daily Note-Current Subjective Patient agrees to PT. Mental Status Patient Orientation: Normal For Age Attachments: Oxygen Transfers SCALE: Activities may be completed with or without assistive devices. 6-Laykaczkev-pphcfwi completes the activity by him/herself with no assistance from a helper. 5-Set-up or Clean-up Assistance-helper sets up or cleans up; patient completes activity. [place] assists only prior to or following the activity. 4-Supervision or Touching Assistance-helper provides verbal cues and/or touching/steadying and/or contact guard assistance as patient completes activity. Assistance may be provided throughout the activity or intermittently. 3-Partial/Moderate Assistance-helper does LESS THAN HALF the effort. [place] lifts, holds or supports trunk or limbs, but provides less than half the effort. 2-Substantial/Maximal Assistance-helper does MORE THAN HALF the effort. [place] lifts or holds trunk or limbs and provides more than half the effort. 6-Achdwekzy-kztkqq does ALL the effort. Patient does none of the effort to complete the activity. Or, the assistance of 2 or more helpers is required for the patient to complete the activity. If activity was not attempted, code reason: 7-Patient Refused. 9-Not Applicable-not attempted and the patient did not perform the activity before the current illness, exacerbation or injury. 10-Not Attempted due to Environmental Limitations-(lack of equipment, weather restraints, etc.). 88-Not Attempted due to Medical Conditions or Safety Concerns. Roll Left & Right (QC): 6 Sit to Lying (QC): 6 Lying to Sitting/Side of Bed(Q: 6 Sit to Stand (QC): 6 Weight Bearing Right Lower Extremity: Right Weight Bearing/Tolerated Left Lower Extremity: Left Weight Bearing/Tolerated Gait Training Does the Patient Walk?: Yes Distance: 225' Walk 10 feet (QC): 5 Walk 50 ft with 2 Turns(QC): 5 Walk 150 ft (QC): 5 Gait Assistive Device: FWW safe and functional with FWW Assessment Patient returned to bed with needs met. Patient does appear to self limit. Patient does report he is up ad eric in room to toilet. RN confirms. PT Penitentiary Goals Penitentiary Goals PT Head [employer] Professional Goals Time Frame: April 28, 2020 Roll Left & Right (QC): 6 Sit to Lying (QC): 6 Lying-Sitting on Side/Bed(QC): 6 Sit to Stand (QC): 6 Chair/Vgl-ob-Rrnhs Xfer(QC): 6 Toilet Transfer (QC): 6 Does the Patient Walk: Yes Walk 10 feet (QC): 6 Walk 50ft with 2 Turns (QC): 6 Walk 150 ft (QC): 6 PT Plan Treatment/Plan Treatment Plan: Continue Plan of Care Treatment Plan: Education, Functional Activity Vikas, Functional Strength, Gait, Safety, Therapeutic Exercise, Transfers Treatment Duration: April 28, 2020 Frequency: 6 times per week Estimated Hrs Per Day: .25 hour per day Patient and/or Family Agrees t: Yes Time/GCodes Time In: 955 Time Out: 1006 Total Billed Treatment Time: 11 Total Billed Treatment 1 visit FA 11 min STERLING LANDAVERDE PT April 17, 2020 10:34
[2020-04-17 11:48] VITALS: BP 137/67
--- NOTE | 2020-04-17 12:10 | Progress Note - Hospitalist ---
Subjective HPI/CC On Admission Date Seen by Provider: April 17, 2020 Time Seen by Provider: 12:05 Pt is a 74yoCM known to me from multiple admissions who presented to the ER due to swelling and shortness of breath. He was just discharged from the hospital on 04/09 for CHF. He did well for a couple of days but then over the last 2-3 days he developed worsening swelling of his legs and worsening orthopnea. He reports compliance with his medications and even took extra lasix yesterday. He also denies any changes in his eating habits. He does not watch his fluid intact [facility]. Subjective/Events-last exam Pt reports feeling better. Breathing improved. Swelling improving as well. Focused Exam Lactate Level 04/15/20 17:01: Lactic Acid Level 1.12 Objective Exam Vital Signs Vital Signs Date Time Temp Pulse Resp B/P (MAP) Pulse Ox O2 Delivery O2 Flow Rate FiO2 04/17/20 11:48 36.4 55 20 137/67 (90) 99 Nasal Cannula 2.50 04/16/20 13:00 32 Capillary Refill : Less Than 3 Seconds General Appearance: No Apparent Distress, WD/WN Respiratory: Lungs Clear, No Respiratory Distress Cardiovascular: Regular Rate, Rhythm, No Murmur Extremity: Swelling (3+ bilaterally) Neurologic/Psychiatric: Alert, Oriented x3 Results/Procedures Lab Patient resulted labs reviewed. Imaging: Reviewed Imaging Report Assessment/Plan Assessment and Plan Assess & Plan/Chief Complaint Acutely Decompensated Diastolic Heart Failure Acute on Chronic Hypoxic Respiratory Failure Afib HTN NSTEMI Type II Continue lasix and metolazone Fluid restriction Continue home Cardizem, amiodarone, and metoprolol Eliquis for stroke ppx Currently in sinus on tele Cardiology consulted, appreciate recs Titrate oxygen as able Negative 4400ml yesterday COPD RLL Pneumonia Continue on Cefepime leukocytosis resolved MAT protocol Wean oxygen as able, down to 2.5lpm Advair CKD stage 3a Check creatinine today Trend with addition of Metolazone Weakness PT/OT May need IRU, pt refuses SNF or [facility] Diagnosis/Problems Diagnosis/Problems (1) CHF exacerbation Status: Acute Qualifiers: Heart failure type: unspecified Qualified Codes: I50.9 - Heart failure, unspecified (2) Pneumonia Status: Acute (3) Debility (4) Hypertension Status: Chronic (5) Paroxysmal atrial fibrillation (6) COPD without exacerbation Status: Chronic Clinical Quality Measures DVT/VTE Risk/Contraindication: Risk Factor Score Per Nursin RFS Level Per Nursing on Admit: 4+=Very High PATRICIA REID MD April 17, 2020 12:10
--- NOTE | 2020-04-17 12:11 | Cardiology Progress Note ---
Cardiology SOAP Progress Note Subjective: Improved shortness of breath. Improved lower extremity swelling. Objective: I&O/Vital Signs 04/17/20 04/17/20 04/17/20 04/17/20 02:24 03:50 06:27 08:00 Temp 36.5 36.7 Pulse 54 58 Resp 18 24 B/P (MAP) 124/56 (78) 114/56 (75) Pulse Ox 93 97 97 100 O2 Delivery Nasal Cannula Nasal Cannula Nasal Cannula O2 Flow Rate 2.50 2.50 2.50 2.50 04/17/20 04/17/20 04/17/20 08:00 11:31 11:48 Temp 36.4 Pulse 55 Resp 20 B/P (MAP) 137/67 (90) Pulse Ox 99 99 O2 Delivery Nasal Cannula Nasal Cannula Nasal Cannula O2 Flow Rate 2.00 2.50 2.50 04/17/20 00:00 Intake Total 500 ml Output Total 4075 ml Balance -3575 ml Weight (Pounds): 215 Weight (Ounces): 0.0 Weight (Calculated Kilograms): 97.276667 Constitutional: appears stated age; No apparent distress; well-developed, well- nourished Respiratory: chest is bilaterally symmetric; No rhonchi, No rales, No stridor, No wheezing, No pleural rub; other (coarse breathing bilaterally. No acute rhonchi heard) Cardiovascular: regular rate-rhythm, S1 and S2, systolic murmur Gastrointestional: soft, audible bowel sounds; No spleenomegaly Extremities: normal range of motion, non-tender, normal inspection, pedal edema; No clubbing, No cyanosis; significant edema Neurologic/Psychiatric: no motor/sensory deficits, alert, normal mood/affect, oriented x 3, power is 5/5 both on sides Skin: normal color, warm/dry; No rash, No ulcerations Results/Procedures: Labs Microbiology 04/15/20 Blood Culture - Preliminary, Resulted No growth A/P: Assessment/Dx: Acute on chronic diastolic congestive heart failure, Llmy-vy-juydfhhy mitral regurgitation, Acute on chronic kidney disease, COPD exacerbation, Pneumonia, CAD/CABG. Plan: Acute on chronic diastolic CHF, recent echocardiogram on 03/2020 showed moderate to severe diastolic dysfunction. On IV Lasix and Zaroxolyn. Improved symptomatically. Follow BUN/creatinine. Strict input/output. Salt and fluid restriction. Minimal troponin elevation, type 2 [place], likely due to CHF Anemia of undetermined etiology PAF, s/p cardioversion on 08/15/2019. 30 day MCOT completed on 05/05/2019 which showed low-grade ectopy. 1 refill episode of nonsustained VT for 5 beats. PSVT for 7 beats. Brief episodes of possible atrial fibrillation. On Amiodarone and Eliquis. Cardizem. ILR is recommended as an outpatient. Echocardiogram done on 03/2020 showed mild concentric LVH with an EF of 55-65 percent. Moderate to severe diastolic dysfunction. Severely dilated left atrium. Kycq-vs-rbalazxr aortic regurgitation. Moderate tricuspid regurgitation. Hypertension PVCs, by history COPD - oxygen dependent Mild to moderate CAD. Left heart catheterization was done on 10/04/2019 which showed mild to moderate proximal LAD disease. FFR was done which was 0.85. PCI was deferred. New pneumonia on chest x-ray with leukocytosis. Normal lactic acid. Defer to the primary team. Acute on chronic kidney disease, we will monitor electrolytes and BUN/creatinine very closely considering that we are increasing the dose of diuretics. Slight improvement in creatinine. Continue current dose of diuretics. Thank you for your consultation. Please call me if you have any questions. Jaz Molina MD, FACP, FACC, FSCAI, FHRS, CCDS Interventional Cardiology Cardiac Electrophysiology Vascular Medicine and Endovascular Interventions Focused Exam Lactate Level 04/15/20 17:01: Lactic Acid Level 1.12 Marta MOLINA MD April 17, 2020 12:11
--- NOTE | 2020-04-17 12:54 | NUR ---
IRF Evaluation Order received to evaluate patient for the ARU. Chart review complete and it appears patient is ambulating (225ft, FWW) with set-up, as well as independent with bed mobility and ADL's; therefore, patient does not require intensive therapies, at this time. CM/SS notified. Thank you for this referral.
[2020-04-17 13:00] LABS: POTASSIUM 3.9 MMOL/L (3.6-5.0)
[2020-04-17 13:01] LABS: CALCIUM 8.5 MG/DL (8.5-10.1)
[2020-04-17 13:05] LABS: CREATININE SERUM 1.54 MG/DL (0.60-1.30)
--- NOTE | 2020-04-17 13:48 | NUR ---
CM/SS: Visited with pt as to his plan for discharge Plan: Undetermined at this time, pt has had [facility] in the past Summary: Pt reports feeling better and that he is anxious about his future. He is asked to give this worker an example of what he is talking about, he indicates that he just not sure how things will end up with him having CHF and COPD. Discussed fluid intake as well as diet. Pt reports that he can do much better. Pt is encouraged to get his strength up so that he can return home, with home care. Other options such as assisted living (he can not afford it), and living with his significant other,(lives in [place]) and Inpatient Rehab ( will ask someone to come talk with pt). He is pretty set on going home with home care. This worker will follow up.
[2020-04-17 15:58] VITALS: BP 130/66
[2020-04-17 23:45] VITALS: BP 121/60
[2020-04-18] MEDS: RT-ALBUTEROL/IPRATROPIUM 3 ML (DUONEB) VIAL INH SCH ×5 (01:39→18:42)
[2020-04-18] MEDS: CEFEPIME 2,000 MG/SWFI 20 ML IV PUSH IV SCH ×4 (03:49→18:27)
[2020-04-18] MEDS: ACETAMINOPHEN 500 MG TAB (TYLENOL) PO PRN ×2 (03:50→18:25)
[2020-04-18 04:49] LABS: HEMOGLOBIN 8.4 G/DL (13.3-17.7); MEAN PLATELET VOLUME 11.2 FL (7.4-10.4); RED CELL DISTRIBUTION WIDTH 17.3 % (10.0-14.5); WHITE BLOOD COUNT 8.1 10^3/uL (4.3-11.0)
[2020-04-18 05:09] LABS: POTASSIUM 4.2 MMOL/L (3.6-5.0)
[2020-04-18 05:10] LABS: CALCIUM 8.3 MG/DL (8.5-10.1)
[2020-04-18 05:14] LABS: CREATININE SERUM 1.45 MG/DL (0.60-1.30)
[2020-04-18] MEDS: FUROSEMIDE 40 MG/4 ML INJ (LASIX) IV SCH (06:04)
[2020-04-18 08:00] VITALS: BP 136/61
[2020-04-18] MEDS: dilTIAZem120 MG (CARDIZEM CD) CAP PO SCH (08:04)
[2020-04-18] MEDS: METOLAZONE 5 MG (ZAROXOLYN) TAB PO SCH (08:04)
[2020-04-18] MEDS: APIXABAN 5 MG (ELIQUIS) TABLET PO SCH ×2 (08:04→20:32)
[2020-04-18] MEDS: AMIODARONE 200 MG (CORDARONE) TAB PO SCH ×2 (08:04→20:32)
[2020-04-18] MEDS: meTOprolol TARTRATE 50 MG (LOPRESSOR) TAB PO SCH ×2 (08:05→21:39)
--- NOTE | 2020-04-18 09:30 | Physical Therapy Daily Note ---
PT Daily Note-Current Subjective Patient in bed pre tx, agrees to PT, has no complaints of pain. Patient states he is very tired/fatigued this morning. Appearance Patient in recliner post tx with nurse call, phone, tray, all needs met. Mental Status Patient Orientation: Person, Place, Situation Attachments: Oxygen Transfers SCALE: Activities may be completed with or without assistive devices. 4-Vsogladhke-xcfgrhk completes the activity by him/herself with no assistance from a helper. 5-Set-up or Clean-up Assistance-helper sets up or cleans up; patient completes activity. [place] assists only prior to or following the activity. 4-Supervision or Touching Assistance-helper provides verbal cues and/or touching/steadying and/or contact guard assistance as patient completes activity. Assistance may be provided throughout the activity or intermittently. 3-Partial/Moderate Assistance-helper does LESS THAN HALF the effort. [place] lifts, holds or supports trunk or limbs, but provides less than half the effort. 2-Substantial/Maximal Assistance-helper does MORE THAN HALF the effort. [place] lifts or holds trunk or limbs and provides more than half the effort. 9-Gjmlrurlc-jxlbms does ALL the effort. Patient does none of the effort to complete the activity. Or, the assistance of 2 or more helpers is required for the patient to complete the activity. If activity was not attempted, code reason: 7-Patient Refused. 9-Not Applicable-not attempted and the patient did not perform the activity befo re the current illness, exacerbation or injury. 10-Not Attempted due to Environmental Limitations-(lack of equipment, weather re straints, etc.). 88-Not Attempted due to Medical Conditions or Safety Concerns. Roll Left & Right (QC): 6 Lying to Sitting/Side of Bed(Q: 6 Sit to Stand (QC): 6 Chair/Gke-jr-Glqdg Xfer(QC): 5 Weight Bearing Right Lower Extremity: Right Weight Bearing/Tolerated Left Lower Extremity: Left Weight Bearing/Tolerated Gait Training Distance: 150' Walk 10 feet (QC): 5 Walk 50 ft with 2 Turns(QC): 5 Walk 150 ft (QC): 5 Gait Persons Needed: 1 Gait Assistive Device: FWW Slow but steady ambulation, patient states he can walk no farther due to fatigue. No SOB. Exercises Seated Therapy Exercises: Ankle pumps, Long arc quads Seated Reps: 20 Treatments bed mobility and transfers, ambulation, functional strengthening Assessment Current Status: Poor Progress more fatigue, poor endurance PT Clearance Rep Goals Prison Goals PT Clearance Rep Goals Time Frame: April 28, 2020 Roll Left & Right (QC): 6 Sit to Lying (QC): 6 Lying-Sitting on Side/Bed(QC): 6 Sit to Stand (QC): 6 Chair/Jfh-kf-Sfvhf Xfer(QC): 6 Toilet Transfer (QC): 6 Does the Patient Walk: Yes Walk 10 feet (QC): 6 Walk 50ft with 2 Turns (QC): 6 Walk 150 ft (QC): 6 PT Plan Problem List Problem List: Activity Tolerance, Functional Strength, Safety, Balance, Gait, Transfer, ROM Treatment/Plan Treatment Plan: Continue Plan of Care Treatment Plan: Education, Functional Activity Vikas, Functional Strength, Gait, Safety, Therapeutic Exercise, Transfers Treatment Duration: April 28, 2020 Frequency: 6 times per week Estimated Hrs Per Day: .25 hour per day Patient and/or Family Agrees t: Yes Safety Risks/Education Patient Education: Gait Training, Transfer Techniques, Correct Positioning, Safety Issues Teaching Recipient: Patient Teaching Methods: Demonstration, Discussion Response to Teaching: Reinforcement Needed Time/GCodes Time In: 829 Time Out: 08 Total Billed Treatment Time: 13 Total Billed Treatment 1 visit FA ALMA DELIA HENLEY PT April 18, 2020 09:30
--- NOTE | 2020-04-18 09:58 | Cardiology Progress Note ---
Cardiology SOAP Progress Note Subjective: Improving shortness of breath. Mild improvement in lower extremity swelling. Objective: I&O/Vital Signs 04/17/20 04/18/20 04/18/20 04/18/20 23:45 06:23 08:00 08:00 Temp 37.0 37.1 Pulse 58 68 Resp 20 18 B/P (MAP) 121/60 (80) 136/61 (86) Pulse Ox 95 97 96 O2 Delivery Nasal Cannula Nasal Cannula Nasal Cannula Nasal Cannula O2 Flow Rate 2.00 3.50 2.00 2.00 04/18/20 10:32 Pulse Ox 97 O2 Delivery Nasal Cannula O2 Flow Rate 2.00 04/18/20 00:00 Intake Total 800 ml Output Total 2150 ml Balance -1350 ml Weight (Pounds): 215 Weight (Ounces): 0.0 Weight (Calculated Kilograms): 97.426360 Constitutional: appears stated age; No apparent distress; well-developed, well- nourished Respiratory: chest is bilaterally symmetric; No rhonchi, No rales, No stridor, No wheezing, No pleural rub; other (coarse breathing bilaterally. No acute rhonchi heard) Cardiovascular: regular rate-rhythm, S1 and S2, systolic murmur Gastrointestional: soft, audible bowel sounds; No spleenomegaly Extremities: normal range of motion, non-tender, normal inspection, pedal edema; No clubbing, No cyanosis; significant edema Neurologic/Psychiatric: no motor/sensory deficits, alert, normal mood/affect, oriented x 3, power is 5/5 both on sides Skin: normal color, warm/dry; No rash, No ulcerations Results/Procedures: Labs Laboratory Tests 04/17/20 12:45: Sodium Level 138, Potassium Level 3.9, Chloride Level 98, Carbon Dioxide Level 28, Anion Gap 12, Blood Urea Nitrogen 24H, Creatinine 1.54H, Estimat Glomerular Filtration Rate 45, BUN/Creatinine Ratio 16, Glucose Level 103, Calcium Level 8.5 04/18/20 04:28: Sodium Level 140, Potassium Level 4.2, Chloride Level 100, Carbon Dioxide Level 30, Anion Gap 10, Blood Urea Nitrogen 22H, Creatinine 1.45H, Estimat Glomerular Filtration Rate 48, BUN/Creatinine Ratio 15, Glucose Level 87, Calcium Level 8.3L, White Blood Count 8.1, Red Blood Count 3.08L, Hemoglobin 8.4L, Hematocrit 28L, Mean Corpuscular Volume 90, Mean Corpuscular Hemoglobin 27, Mean Corpuscular Hemoglobin Concent 30L, Red Cell Distribution Width 17.3H, Platelet Count 190, Mean Platelet Volume 11.2H Microbiology 04/15/20 Blood Culture - Preliminary, Resulted No growth A/P: Assessment/Dx: Acute on chronic diastolic congestive heart failure, Mxrj-na-rzktoqqu mitral regurgitation, Acute on chronic kidney disease, COPD exacerbation, Pneumonia, CAD/CABG. Plan: Acute on chronic diastolic CHF, recent echocardiogram on 03/2020 showed moderate to severe diastolic dysfunction. On IV Lasix and Zaroxolyn. Improved symptomatically. Follow BUN/creatinine. Strict input/output. Salt and fluid restriction. Minimal troponin elevation, type 2 [place], likely due to CHF Anemia of undetermined etiology PAF, s/p cardioversion on 08/15/2019. 30 day MCOT completed on 05/05/2019 which showed low-grade ectopy. 1 refill episode of nonsustained VT for 5 beats. PSVT for 7 beats. Brief episodes of possible atrial fibrillation. On Amiodarone and Eliquis. Cardizem. ILR is recommended as an outpatient. Echocardiogram done on 03/2020 showed mild concentric LVH with an EF of 55-65 percent. Moderate to severe diastolic dysfunction. Severely dilated left atrium. Lwel-pd-hoqlnnjw aortic regurgitation. Moderate tricuspid regurgitation. Hypertension PVCs, by history COPD - oxygen dependent Mild to moderate CAD. Left heart catheterization was done on 10/04/2019 which showed mild to moderate proximal LAD disease. FFR was done which was 0.85. PCI was deferred. New pneumonia on chest x-ray with leukocytosis. Normal lactic acid. Defer to the primary team. Acute on chronic kidney disease, we will monitor electrolytes and BUN/creatinine very closely considering that we are increasing the dose of diuretics. Slight improvement in creatinine. Continue current dose of diuretics. Thank you for your consultation. Please call me if you have any questions. Jaz Molina MD, FACP, FACC, FSCAI, FHRS, CCDS Interventional Cardiology Cardiac Electrophysiology Vascular Medicine and Endovascular Interventions Focused Exam Lactate Level 04/15/20 17:01: Lactic Acid Level 1.12 Marta MOLINA MD April 18, 2020 09:58
[2020-04-18] MEDS ORDERED: DOCUSATE SODIUM 100 MG (COLACE) CAP PO ONE (11:15)
--- NOTE | 2020-04-18 12:49 | NUR ---
"RD ASSESSMENT PMHx: CHF; COPD; afib; HTN PT INTERACTION: Pt was awake and pleasant during consult for dietary education. Pt states current appetite is good. Note avg PO intake >75% x4d, per chart review. Pt states following a low-sodium diet at home and has no issues with chewing/swallowing food. Pt states no recent issues with nausea, vomiting, constipation, or diarrhea. Note last BM was 04/16, and pt not currently on bowel regimen per chart review. Pt states no recent wt changes. Note unable to determine recent wt hx, per chart review. ABNORMAL NUTRITION-RELATED LAB VALUES LOW: Ca 8.3 HIGH: BUN 22; cr 1.45 Est. kcal needs: 6237-5257 kcal | 15-18 kcal/kg Est. Pro needs: 82-102 g Pro | 0.8-1.0 g Pro/kg PES STATEMENT: Food- and nutrition-related knowledge deficit (NB-1.1) related to lack of prior nutrition-related education as evidenced by no prior knowledge of need for food- and nutrition-related recommendations INTERVENTION: Continue with current diet order of 2000mg Na diet. Discussed and provided handout on Heart Health and Label Reading. Discussed with pt importance of reading nutrition labels and what nutrients to watch for on the label. Discussed role of sodium in the body as it relates water retention and blood pressure. Pt verbalized understanding and appears confident to follow recommendations upon discharge. Will continue to follow and reassess as pt needs, intake, and status change. MONITOR/EVALUATE: PO Intake; Plan of Care; Hydration Status; Weight Status; Lab Values Keyon Orona, , RD, LD"
--- NOTE | 2020-04-18 12:50 | Progress Note - Hospitalist ---
Subjective HPI/CC On Admission Date Seen by Provider: April 18, 2020 Time Seen by Provider: 12:45 Pt is a 74yoCM known to me from multiple admissions who presented to the ER due to swelling and shortness of breath. He was just discharged from the hospital on 04/09 for CHF. He did well for a couple of days but then over the last 2-3 days he developed worsening swelling of his legs and worsening orthopnea. He reports compliance with his medications and even took extra lasix yesterday. He also denies any changes in his eating habits. He does not watch his fluid intact though. Subjective/Events-last exam Pt reports being "down" in his mood today. Worried about what his life will be like with his heart failure and the quality of his life. I did bring up the idea of palliative care at some point but don't think that he would qualify yet for hospice. Focused Exam Lactate Level 04/15/20 17:01: Lactic Acid Level 1.12 Objective Exam Vital Signs Vital Signs Date Time Temp Pulse Resp B/P (MAP) Pulse Ox O2 Delivery O2 Flow Rate FiO2 04/18/20 10:32 97 Nasal Cannula 2.00 04/18/20 08:00 37.1 68 18 136/61 (86) 04/16/20 13:00 32 Capillary Refill : Less Than 3 Seconds General Appearance: No Apparent Distress, WD/WN Respiratory: Lungs Clear, No Respiratory Distress, Other (on oxygen) Cardiovascular: Regular Rate, Rhythm, No Murmur Gastrointestinal: Normal Bowel Sounds, Soft Extremity: Swelling (2-3+ to calves) Neurologic/Psychiatric: Alert, Oriented x3 Results/Procedures Lab Laboratory Tests 04/17/20 12:45 04/18/20 04:28 Patient resulted labs reviewed. Imaging: Reviewed Imaging Report Assessment/Plan Assessment and Plan Assess & Plan/Chief Complaint Acutely Decompensated Diastolic Heart Failure Acute on Chronic Hypoxic Respiratory Failure Afib HTN NSTEMI Type II Continue lasix and metolazone Fluid restriction Continue home Cardizem, amiodarone, and metoprolol Eliquis for stroke ppx Currently in sinus on tele Cardiology consulted, appreciate recs Titrate oxygen as able Negative 2250ml yesterday Does not tolerate FAY hose COPD RLL Pneumonia Continue on Cefepime leukocytosis resolved MAT protocol Wean oxygen as able, down to 2lpm Advair CKD stage 3a Creatinine stable Trend with addition of Metolazone Weakness PT/OT Will need Home Health with discharge Diagnosis/Problems Diagnosis/Problems (1) CHF exacerbation Status: Acute Qualifiers: Heart failure type: unspecified Qualified Codes: I50.9 - Heart failure, unspecified (2) Pneumonia Status: Acute (3) Debility (4) Hypertension Status: Chronic (5) Paroxysmal atrial fibrillation (6) COPD without exacerbation Status: Chronic Clinical Quality Measures DVT/VTE Risk/Contraindication: Risk Factor Score Per Nursin RFS Level Per Nursing on Admit: 4+=Very High PATRICIA REID MD April 18, 2020 12:50
[2020-04-18 14:35] VITALS: BP 136/61
--- NOTE | 2020-04-18 15:08 | NUR ---
CM/SS: Visited with pt as to plan for discharge Plan: Pt to return home with [facility] resumed Summary: Pt feels as if he is a little down today. He knows that he is and knows that he had got to work hard to get his strength back. Pt reports that he can not wait to get to work more with therapy when they are able to come to his home. Pt reports his fluid is better and his feet are still swollen. Pt reports being here another day or so. Pt is eager to return home and shares he wants to sell his home and that he has to give half of the proceeds with his son who he is unable to locate. He reports his son is [place] and they have a had a falling out. He does some life review and talks about his who 17 years ago of [place]. He reports he started dating a while after that and has been with the same women since being a . He talks also about moving to [place] or another halfway apartment. He is encouraged to sort things out and not make any quick decisions as his mood is down. He verbalizes understanding. This worker will follow up.
[2020-04-18 16:08] VITALS: BP 144/73
[2020-04-18 20:30] VITALS: BP 123/49
[2020-04-18] MEDS: DOCUSATE SODIUM 100 MG (COLACE) CAP PO SCH (20:32)
[2020-04-18 23:50] VITALS: BP 122/59
[2020-04-19] MEDS: CEFEPIME 2,000 MG/SWFI 20 ML IV PUSH IV SCH ×4 (05:28→17:09)
[2020-04-19] MEDS: FUROSEMIDE 40 MG/4 ML INJ (LASIX) IV SCH (06:03)
[2020-04-19 06:37] LABS: HEMOGLOBIN 8.5 G/DL (13.3-17.7); MEAN PLATELET VOLUME 11.1 FL (7.4-10.4); RED CELL DISTRIBUTION WIDTH 17.4 % (10.0-14.5); WHITE BLOOD COUNT 7.7 10^3/uL (4.3-11.0)
[2020-04-19 07:05] LABS: CALCIUM 8.5 MG/DL (8.5-10.1); CREATININE SERUM 1.36 MG/DL (0.60-1.30); POTASSIUM 3.8 MMOL/L (3.6-5.0)
[2020-04-19 07:40] VITALS: BP 145/69
[2020-04-19] MEDS: RT-ALBUTEROL/IPRATROPIUM 3 ML (DUONEB) VIAL INH SCH ×4 (07:44→19:13)
[2020-04-19] MEDS: APIXABAN 5 MG (ELIQUIS) TABLET PO SCH ×2 (09:15→19:45)
[2020-04-19] MEDS: dilTIAZem120 MG (CARDIZEM CD) CAP PO SCH (09:15)
[2020-04-19] MEDS: meTOprolol TARTRATE 50 MG (LOPRESSOR) TAB PO SCH ×2 (09:15→22:30)
[2020-04-19] MEDS: AMIODARONE 200 MG (CORDARONE) TAB PO SCH ×2 (09:15→19:45)
[2020-04-19] MEDS: METOLAZONE 5 MG (ZAROXOLYN) TAB PO SCH (09:15)
[2020-04-19] MEDS: DOCUSATE SODIUM 100 MG (COLACE) CAP PO SCH ×2 (09:16→22:29)
[2020-04-19] MEDS: ACETAMINOPHEN 500 MG TAB (TYLENOL) PO PRN ×2 (09:29→19:46)
[2020-04-19] MEDS ORDERED: METO5TAB6 PO (10:02)
[2020-04-19] MEDS ORDERED: CEFD300C3 PO (10:02)
--- NOTE | 2020-04-19 10:15 | D/C HH Face to Face Order ---
D/C Face to Face Orders Reconcile Patient Problems Problems Reviewed?: Yes Instructions for Patient Via Dinah HeTexted, Patient Instructions/FollowUp: Please follow up with Dr Blair on 04/25 at 940. This will be a telemedicine visit and he will call your phone for the visit. Physician to follow Patient: Dr Blair Discharge Diet for Home: Low Sodium Diet Goals for Patient: Please continue to take your medications as written. Please follow up with Dr Molina next week as scheduled and with Dr Blair as well. Patient Data-Allergies,Ht & Wt Patient Allergies: Coded Allergies: Sulfa (Sulfonamide Antibiotics) (Verified Allergy, Unknown, 10/04/19) Height (Feet): 5 Height (Inches): 9.00 Weight (Pounds): 215 Weight (Ounces): 0.0 Home Health Need/Face to Face Date of Face to Face: April 19, 2020 Clinical Findings: Generalized weakness and fatigue, Shortness of breath I have seen Pt nehq-al-nmvy: Yes Discharged To: Home Diagnosis/Conditions: Heart Failure, COPD Patient is Homebound due to: Muscle weakness, Shortness of breath/distress Homebound Status Due to the above stated illness, injury or surgical procedure (medical condition or diagnosis) and associated clinical findings, the patient is homebound because of his/her inability to leave home except with aid of a supportive device and/or person AND leaving the home requires a considerable and taxing effort or is medically contraindicated. Pt req the following assistanc: Aid of another person, Walker Home Health Nursing Orders Home Health Services Order: Nursing Services, Director Of Safety-Evaluate & Treat, Physical Therapy-Evaluate & Treat Therapy Orders Therapy Orders: OT (must have SN or PT order), Physical Therapy Therapy Specific Orders: Eval assistive deivces, Teach enviro modifications/safety, Gait training, Increase strength/endurance Certify Stmt I certify that this patient is under my care and that I, a nurse practitioner or a physician; a bakery assistant working with me, had a face to face encounter that - meets the physician face to face encounter requirements with this patient as dated. PATRICIA REID MD April 19, 2020 10:08
--- NOTE | 2020-04-19 10:35 | Cardiology Progress Note ---
Cardiology SOAP Progress Note Subjective: Improved shortness of breath. Objective: I&O/Vital Signs Weight (Pounds): 215 Weight (Ounces): 0.0 Weight (Calculated Kilograms): 97.673973 Constitutional: appears stated age; No apparent distress; well-developed, well- nourished Respiratory: chest is bilaterally symmetric; No rhonchi, No rales, No stridor, No wheezing, No pleural rub; other (coarse breathing bilaterally. No acute rhonchi heard) Cardiovascular: regular rate-rhythm, S1 and S2, systolic murmur Gastrointestional: soft, audible bowel sounds; No spleenomegaly Extremities: normal range of motion, non-tender, normal inspection, pedal edema; No clubbing, No cyanosis; significant edema Neurologic/Psychiatric: no motor/sensory deficits, alert, normal mood/affect, oriented x 3, power is 5/5 both on sides Skin: normal color, warm/dry; No rash, No ulcerations Results/Procedures: Labs Microbiology 04/15/20 Blood Culture - Preliminary, Resulted No growth A/P: Assessment/Dx: Acute on chronic diastolic congestive heart failure, Wfuy-zs-jmeraxpz mitral regurgitation, Acute on chronic kidney disease, COPD exacerbation, Pneumonia, CAD/CABG. Plan: Acute on chronic diastolic CHF, recent echocardiogram on 03/2020 showed moderate to severe diastolic dysfunction. On IV Lasix and Zaroxolyn. Improved symptomatically. Follow BUN/creatinine. Strict input/output. Salt and fluid restriction. Minimal troponin elevation, type 2 UT, likely due to CHF; however non-STEMI due to plaque rupture cannot be ruled out. Anemia of undetermined etiology PAF, s/p cardioversion on 08/15/2019. 30 day MCOT completed on 05/05/2019 which showed low-grade ectopy. 1 refill episode of nonsustained VT for 5 beats. PSVT for 7 beats. Brief episodes of possible atrial fibrillation. On Amiodarone and Eliquis. Cardizem. ILR is recommended as an outpatient. Echocardiogram done on 03/2020 showed mild concentric LVH with an EF of 55-65 percent. Moderate to severe diastolic dysfunction. Severely dilated left atriu m. Wgay-gw-maemkiii aortic regurgitation. Moderate tricuspid regurgitation. Hypertension PVCs, by history COPD - oxygen dependent Mild to moderate CAD. Left heart catheterization was done on 10/04/2019 which showed mild to moderate proximal LAD disease. FFR was done which was 0.85. PCI was deferred. New pneumonia on chest x-ray with leukocytosis. Normal lactic acid. Defer to the primary team. Acute on chronic kidney disease, we will monitor electrolytes and BUN/creatinine very closely considering that we are increasing the dose of diuretics. Slight improvement in creatinine. Continue current dose of diuretics. Thank you for your consultation. Please call me if you have any questions. Jaz Molina MD, FACP, FACC, FSCAI, FHRS, CCDS Interventional Cardiology Cardiac Electrophysiology Vascular Medicine and Endovascular Interventions Marta MOLINA MD April 19, 2020 10:35
--- NOTE | 2020-04-19 10:37 | Physical Therapy Daily Note ---
PT Daily Note-Current Subjective Pt. up in chair, agrees to therapy and states he hopes to go home today or tomorrow. Mental Status Patient Orientation: Person, Place, Time, Situation Attachments: Oxygen (2L) Transfers SCALE: Activities may be completed with or without assistive devices. 7-Dctxzqytdz-dxhscbr completes the activity by him/herself with no assistance from a helper. 5-Set-up or Clean-up Assistance-helper sets up or cleans up; patient completes activity. [place] assists only prior to or following the activity. 4-Supervision or Touching Assistance-helper provides verbal cues and/or touching/steadying and/or contact guard assistance as patient completes activity. Assistance may be provided throughout the activity or intermittently. 3-Partial/Moderate Assistance-helper does LESS THAN HALF the effort. [place] lifts, holds or supports trunk or limbs, but provides less than half the effort. 2-Substantial/Maximal Assistance-helper does MORE THAN HALF the effort. [place] lifts or holds trunk or limbs and provides more than half the effort. 6-Keoyxeujq-zeipoq does ALL the effort. Patient does none of the effort to complete the activity. Or, the assistance of 2 or more helpers is required for the patient to complete the activity. If activity was not attempted, code reason: 7-Patient Refused. 9-Not Applicable-not attempted and the patient did not perform the activity before the current illness, exacerbation or injury. 10-Not Attempted due to Environmental Limitations-(lack of equipment, weather restraints, etc.). 88-Not Attempted due to Medical Conditions or Safety Concerns. Sit to Stand (QC): 6 Weight Bearing Right Lower Extremity: Right Weight Bearing/Tolerated Left Lower Extremity: Left Weight Bearing/Tolerated Gait Training Does the Patient Walk?: Yes Distance: 200 ft Walk 150 ft (QC): 6 Gait Assistive Device: FWW Treatments gait Assessment Current Status: Good Progress Pt. was steady with gait and no SOB noted. Pt. returned to bedside chair, O2 in situ and all needs met. PT Candle Pourer Goals Mcfp Goals PT Candle Pourer Goals Time Frame: April 28, 2020 Roll Left & Right (QC): 6 Sit to Lying (QC): 6 Lying-Sitting on Side/Bed(QC): 6 Sit to Stand (QC): 6 Chair/Tlc-av-Ggxpj Xfer(QC): 6 Toilet Transfer (QC): 6 Does the Patient Walk: Yes Walk 10 feet (QC): 6 Walk 50ft with 2 Turns (QC): 6 Walk 150 ft (QC): 6 PT Plan Treatment/Plan Treatment Plan: Continue Plan of Care Treatment Plan: Education, Functional Activity Vikas, Functional Strength, Gait, Safety, Therapeutic Exercise, Transfers Treatment Duration: April 28, 2020 Frequency: 6 times per week Estimated Hrs Per Day: .25 hour per day Patient and/or Family Agrees t: Yes Time/GCodes Time In: 918 Time Out: 928 Total Billed Treatment Time: 10 Total Billed Treatment 1, GT 10' CY CLAROS PT April 19, 2020 10:37
[2020-04-19] MEDS ORDERED: REGADENOSON 0.4 MG/5 ML SYR (LEXISCAN) IV ONE (11:30)
--- NOTE | 2020-04-19 12:49 | Progress Note - Hospitalist ---
Subjective HPI/CC On Admission Date Seen by Provider: April 19, 2020 Time Seen by Provider: 12:43 Pt is a 74yoCM known to me from multiple admissions who presented to the ER due to swelling and shortness of breath. He was just discharged from the hospital on 04/09 for CHF. He did well for a couple of days but then over the last 2-3 days he developed worsening swelling of his legs and worsening orthopnea. He reports compliance with his medications and even took extra lasix yesterday. He also denies any changes in his eating habits. He does not watch his fluid intact though. Subjective/Events-last exam Pt reports feeling better today. Was hopeful for discharge but slight troponin elevation. Objective Exam Vital Signs Vital Signs Date Time Temp Pulse Resp B/P (MAP) Pulse Ox O2 Delivery O2 Flow Rate FiO2 04/19/20 08:00 Nasal Cannula 2.00 04/19/20 07:44 96 04/19/20 07:40 37.1 59 20 145/69 (94) 97 Capillary Refill : Less Than 3 SecondsLess Than 3 Seconds General Appearance: No Apparent Distress, WD/WN Respiratory: Lungs Clear, No Respiratory Distress Cardiovascular: Regular Rate, Rhythm, No Murmur Gastrointestinal: Normal Bowel Sounds, Non Tender, Soft Extremity: Swelling (2+ to just above ankles) Neurologic/Psychiatric: Alert, Oriented x3, Normal Mood/Affect Results/Procedures Lab Laboratory Tests 04/19/20 05:38 Patient resulted labs reviewed. Imaging: Reviewed Imaging Report Assessment/Plan Assessment and Plan Assess & Plan/Chief Complaint Acutely Decompensated Diastolic Heart Failure Acute on Chronic Hypoxic Respiratory Failure Afib HTN NSTEMI Type II Continue lasix and metolazone Fluid restriction Continue home Cardizem, amiodarone, and metoprolol Eliquis for stroke ppx Cardiology consulted, appreciate recs Titrate oxygen as able Negative 2930ml yesterday and total over 10L Does not tolerate FAY hose Troponin up further today, plan for stress test tomorrow COPD RLL Pneumonia Continue on Cefepime leukocytosis resolved MAT protocol Wean oxygen as able, down to 2lpm Advair CKD stage 3a Creatinine stable Trend with addition of Metolazone Weakness PT/OT Will need Home Health with discharge Diagnosis/Problems Diagnosis/Problems (1) CHF exacerbation Status: Acute Qualifiers: Heart failure type: unspecified Qualified Codes: I50.9 - Heart failure, unspecified (2) Pneumonia Status: Acute (3) Debility (4) Hypertension Status: Chronic (5) Paroxysmal atrial fibrillation (6) COPD without exacerbation Status: Chronic Clinical Quality Measures DVT/VTE Risk/Contraindication: Risk Factor Score Per Nursin RFS Level Per Nursing on Admit: 4+=Very High PATRICIA REID MD April 19, 2020 12:49
[2020-04-19 16:54] VITALS: BP 111/62
--- NOTE | 2020-04-19 20:43 | NUR ---
CM/SS: Visit with pt as to remaining one more day Plan: Pt to return home with [facility] resumed. Summary: Pt reports so ready to be going home. He reports his labs numbers being up and that they need to do a stress test. He seems tearful indicating that he so looked forward to being home and laying in his own bed. He is encouraged that his is in the right place to get things checked out so that he does not have to return. He agrees. He is encouraged just one more day and he will have more answers and be really ready to return home. This worker reminds him that discharge information will be sent to [facility]. He verbalizes understanding. This worker will follow up.
[2020-04-20 00:46] VITALS: BP 128/65
[2020-04-20] MEDS: CEFEPIME 2,000 MG/SWFI 20 ML IV PUSH IV SCH ×2 (04:45)
[2020-04-20 05:39] LABS: HEMOGLOBIN 8.6 G/DL (13.3-17.7); MEAN PLATELET VOLUME 9.5 FL (7.4-10.4); RED CELL DISTRIBUTION WIDTH 17.1 % (10.0-14.5); WHITE BLOOD COUNT 7.1 10^3/uL (4.3-11.0)
[2020-04-20 05:54] LABS: CALCIUM 8.3 MG/DL (8.5-10.1)
[2020-04-20 05:59] LABS: CREATININE SERUM 1.33 MG/DL (0.60-1.30)
--- NOTE | 2020-04-20 07:21 | NUR ---
0700 lasix not given at this time per pt request to wait..
[2020-04-20] MEDS: RT-ALBUTEROL/IPRATROPIUM 3 ML (DUONEB) VIAL INH SCH ×2 (07:30→11:35)
--- NOTE | 2020-04-20 08:25 | NUR ---
pt off floor for procedure
[2020-04-20 08:29] VITALS: BP 138/80
[2020-04-20] MEDS ORDERED: REGADENOSON 0.4 MG/5 ML SYR (LEXISCAN) IV ONE (08:34)
[2020-04-20 09:27] VITALS: BP 147/83
--- NOTE | 2020-04-20 10:30 | NUR ---
pt back on floor. morning meds given now
[2020-04-20] MEDS: DOCUSATE SODIUM 100 MG (COLACE) CAP PO SCH (10:50)
[2020-04-20] MEDS: AMIODARONE 200 MG (CORDARONE) TAB PO SCH (10:50)
[2020-04-20] MEDS: APIXABAN 5 MG (ELIQUIS) TABLET PO SCH (10:50)
[2020-04-20] MEDS: METOLAZONE 5 MG (ZAROXOLYN) TAB PO SCH (10:50)
[2020-04-20] MEDS: FUROSEMIDE 40 MG/4 ML INJ (LASIX) IV SCH (10:50)
[2020-04-20] MEDS: dilTIAZem120 MG (CARDIZEM CD) CAP PO SCH (10:51)
[2020-04-20] MEDS: meTOprolol TARTRATE 50 MG (LOPRESSOR) TAB PO SCH (10:51)
[2020-04-20 12:45] VITALS: BP 151/80
--- NOTE | 2020-04-20 13:23 | Discharge Summary ---
Diagnosis/Chief Complaint Date of Admission April 15, 2020 at 16:09 Date of Discharge Discharge Date: April 19, 2020 Admission Diagnosis Acutely Decompensated Diastolic Heart Failure Primary Care Wilfredo Blair MD Discharge Diagnosis (1) CHF exacerbation Status: Acute (2) Pneumonia Status: Acute (3) Debility (4) Hypertension Status: Chronic (5) Paroxysmal atrial fibrillation (6) COPD without exacerbation Status: Chronic Discharge Summary Procedures/Consulations Dr Molina- Cardiology Discharge Physical Exam Allergies: Coded Allergies: Sulfa (Sulfonamide Antibiotics) (Verified Allergy, Unknown, 10/04/19) Vitals & I&Os Vital Signs Date Time Temp Pulse Resp B/P (MAP) Pulse Ox O2 Delivery O2 Flow Rate FiO2 04/20/20 13:50 36.3 61 19 151/80 95 Room Air 2.00 04/20/20 07:31 General Appearance: No Apparent Distress, WD/WN Respiratory: Lungs Clear, No Respiratory Distress Cardiovascular: Regular Rate, Rhythm, No Murmur Neurologic/Psychiatric: Alert, Oriented x3 Hospital Course Pt was admitted due to acutely decompensated heart failure. He was diuresed and did well. He had a slight bump in his troponin and underwent stress test which was negative. He was seen by [facility] for education on fluid restriction and sodium intake. He was discharged home in stable condition after diuresing over 1 3 liters. His renal function was watched closely and remained stable. He is to follow up with Dr Blair and with Dr Molina. Labs (last 24 hrs) Microbiology 04/15/20 Blood Culture - Final, Complete No growth Patient resulted labs reviewed. Pending Labs Imaging: Reviewed Imaging Report Discussion & Recommendations Discharge Planning: >30 minutes discharge planning Discharge Home Medications: Active Scripts Active Cefdinir 300 Mg Capsule 300 Mg PO BID Metolazone 5 Mg Tablet 5 Mg PO DAILY Reported Dulcolax (Bisacodyl) 5 Mg Tablet.dr 5 Mg PO DAILY PRN Klor-Con 10 (Potassium Chloride) 10 Meq Tablet.er 10 Meq PO DAILY 8Hr Arthritis Pain (Acetaminophen) 650 Mg Tablet.er 650-1,300 Mg PO Q8H PRN Wixela 250-50 Inhub (Fluticasone Propion/Salmeterol) 1 Each Blst.w.dev 1 Puff IN BID Amlodipine Besylate 5 Mg Tablet 5 Mg PO DAILY Lasix (Furosemide) 80 Mg Tablet 80 Mg PO DAILY Buspirone HCl 5 Mg Tablet 5 Mg PO TID PRN Albuterol Sulfate 2.5 Mg/0.5 Ml Vial.neb 2.5 Mg NEB Q4H PRN Eliquis (Apixaban) 5 Mg Tablet 5 Mg PO BID Diltiazem 24Hr ER (Diltiazem HCl) 120 Mg Cap.er.24h 120 Mg PO DAILY Amiodarone HCl 200 Mg Tablet 200 Mg PO BID Metoprolol Tartrate 100 Mg Tablet 100 Mg PO BID Proair Hfa (Albuterol Sulfate) 8.5 Gm Hfa.aer.ad 1-2 Puff IH Q4H PRN Enalapril Maleate 20 Mg Tablet 20 Mg PO DAILY Instructions to patient/family Please see electronic discharge instructions given to patient. Clinical Quality Measures DVT/VTE Risk/Contraindication: Risk Factor Score Per Nursin RFS Level Per Nursing on Admit: 4+=Very High Problem Qualifiers (1) CHF exacerbation: Heart failure type: unspecified Qualified Codes: I50.9 - Heart failure, unspecified PATRICIA REID MD April 20, 2020 13:23
[2020-04-20] MEDS: ACETAMINOPHEN 500 MG TAB (TYLENOL) PO PRN (13:35)
[2020-04-20 13:50] VITALS: BP 151/80
--- NOTE | 2020-04-20 19:02 | Cardiology Stress Test Report ---
Stress Test Report Type of NM Stress Test: Test Type: LEXISCAN 0.4MG/5ML Date of Procedure/Referring: Date of Procedure: April 20, 2020 PCP Genia Lamb MD Admitting Physician Wilfredo Blair MD Indications: Shortness of breath, positive troponin. Baseline Heart Rate: 64 Baseline Blood Pressure: Blood Pressure Systolic: 151 Blood Pressure Diastolic: 80 Baseline EKG: Baseline EKG: Sinus rhythm Summary & Conclusion: Summary: The patient was brought to the stress lab after informed consent was taken. Stress test was performed according to the Lexiscan protocol. 0.4 mg of IV Lexiscan was given. Low-grade exercise was performed. Baseline EKG showed sinus rhythm at 64 BPM, blood pressure 147/83 mmHg. Maximum heart rate of 71 b pm and blood pressure 147/66 mmHg. Patient did not have any chest pain, arrhythmias or ST segment changes during the stress test. 10.05 mCi of Myoview were given for rest imaging and 31.8 mCi of Myoview given for stress imaging. Transient ischemic dilatation score 1.05, EF 50 to percent. Normal wall motion. No reversible defect noted. Fixed apical defect, small size. SSS 8, SRS 6, SDS 2. Conclusion: Pharmacological stress test was negative for ischemia. Normal LV function with no wall motion abnormalities. Possible old apical infarct. No inducible ischemia. Marta HERNANDEZ MD April 20, 2020 19:02
--- NOTE | 2020-04-20 19:02 | Cardiology Progress Note ---
Cardiology SOAP Progress Note Subjective: Improving shortness of breath. Objective: I&O/Vital Signs Weight (Pounds): 215 Weight (Ounces): 0.0 Weight (Calculated Kilograms): 97.800376 Constitutional: appears stated age; No apparent distress; well-developed, well- nourished Respiratory: chest is bilaterally symmetric; No rhonchi, No rales, No stridor, No wheezing, No pleural rub; other (coarse breathing bilaterally. No acute rhonchi heard) Cardiovascular: regular rate-rhythm, S1 and S2, systolic murmur Gastrointestional: soft, audible bowel sounds; No spleenomegaly Extremities: normal range of motion, non-tender, normal inspection, pedal edema; No clubbing, No cyanosis; significant edema Neurologic/Psychiatric: no motor/sensory deficits, alert, normal mood/affect, oriented x 3, power is 5/5 both on sides Skin: normal color, warm/dry; No rash, No ulcerations Results/Procedures: Labs Microbiology 04/15/20 Blood Culture - Preliminary, Resulted No growth A/P: Assessment/Dx: Acute on chronic diastolic congestive heart failure, Positive troponin Mcmx-sf-tjlcnlrq mitral regurgitation, Acute on chronic kidney disease, COPD exacerbation, Pneumonia, CAD/CABG. Plan: Acute on chronic diastolic CHF, recent echocardiogram on 03/2020 showed moderate to severe diastolic dysfunction. On IV Lasix and Zaroxolyn. Improved symptomatically. Follow BUN/creatinine. Strict input/output. Salt and fluid restriction. Minimal troponin elevation, type 2 CO, likely due to CHF; however non-STEMI due to plaque rupture cannot be ruled out. Also patient had mild increase in troponin level since admission. Therefore noninvasive testing with myocardial perfusion imaging is recommended. Anemia of undetermined etiology PAF, s/p cardioversion on 08/15/2019. 30 day MCOT completed on 05/05/2019 which showed low-grade ectopy. 1 refill episode of nonsustained VT for 5 beats. PSVT for 7 beats. Brief episodes of possible atrial fibrillation. On Amiodarone and Eliquis. Cardizem. ILR is recommended as an outpatient. Echocardiogram done on 03/2020 showed mild concentric LVH with an EF of 55-65 percent. Moderate to severe diastolic dysfunction. Severely dilated left atrium. Sqoq-ar-vqcmrzvo aortic regurgitation. Moderate tricuspid regurgitation. Hypertension PVCs, by history COPD - oxygen dependent Mild to moderate CAD. Left heart catheterization was done on 10/04/2019 which showed mild to moderate proximal LAD disease. FFR was done which was 0.85. PCI was deferred. New pneumonia on chest x-ray with leukocytosis. Normal lactic acid. Defer to the primary team. Acute on chronic kidney disease, we will monitor electrolytes and BUN/creatinine very closely considering that we are increasing the dose of diuretics. Slight improvement in creatinine. Continue current dose of diuretics. Thank you for your consultation. Please call me if you have any questions. Jaz Molina MD, FACP, FACC, FSCAI, FHRS, CCDS Interventional Cardiology Cardiac Electrophysiology Vascular Medicine and Endovascular Interventions Marta MOLINA MD April 20, 2020 19:02
== END 2020-04-20 14:33 | disposition home health service (06) | DRG 280 ==
LOC: EDUNIT# 15:02 → ER 15:03 → ICU 16:09 → 4TH 16:43
PROVIDERS: ADMIT Internal Medicine; ATTEND Internal Medicine
DX: I13.0 Hypertensive heart and chronic kidney disease with heart failure and stage 1 through stage 4 chronic kidney disease, or unspecified chronic kidney disease (principal); I50.33 Acute on chronic diastolic (congestive) heart failure; N18.3 Chronic kidney disease, stage 3 (moderate); I21.A1 Myocardial infarction type 2; J96.21 Acute and chronic respiratory failure with hypoxia; J18.9 Pneumonia, unspecified organism; N17.9 Acute kidney failure, unspecified; J44.1 Chronic obstructive pulmonary disease with (acute) exacerbation; J44.0 Chronic obstructive pulmonary disease with (acute) lower respiratory infection; I25.10 Atherosclerotic heart disease of native coronary artery without angina pectoris; I47.2 Ventricular tachycardia; I47.1 Supraventricular tachycardia; I08.3 Combined rheumatic disorders of mitral, aortic and tricuspid valves; I48.0 Paroxysmal atrial fibrillation; J30.2 Other seasonal allergic rhinitis; M19.91 Primary osteoarthritis, unspecified site; F41.9 Anxiety disorder, unspecified; D64.9 Anemia, unspecified; Z87.891 Personal history of nicotine dependence; Z96.653 Presence of artificial knee joint, bilateral; Z95.1 Presence of aortocoronary bypass graft; Z99.81 Dependence on supplemental oxygen
CPT/HCPCS: 36415; 71045; 78452; 80048; 80053; 81000; 83605; 83735; 83880; 84145; 84484; 85025; 85027; 87040; 93005; 93017; 94640; 94760; 96374

== ENCOUNTER 2020-05-10 08:38 | Emergency (ER) | payer MEDICARE ==
[~2020-05-10] VITALS: Ht 177.8 cm; Wt 90.9 kg
[~2020-05-10 08:38] MED LIST changes: +CEFD300C3 PO; +METO5TAB6 PO
--- OUTSIDE RECORDS SUMMARY | 2020-05-10 09:10 | XMS REPORT | Continuity of Care Document ---
Author Organization Unknown Address Unknown Phone Unavailable Allergies Active Description Code Type Severity Reaction Onset Reported/Identified Relationship to Patient Clinical Status Yes Sulfa (Sulfonamide Antibiotics) [id number] Drug Allergy Unknown N/A 019 Medications [...] V58.61 08/24/2015 Ot V58.83 09/17/2015 OSCAR KELLER ACCESS SERVICE REPRESENTATIVE Ot 278.00 09/17/2015 OSCAR KELLER ACCESS SERVICE REPRESENTATIVE Ot 401.9 09/17/2015 OSCAR KELLER ACCESS SERVICE REPRESENTATIVE Ot 496 09/17/2015 OSCAR KELLER ACCESS SERVICE REPRESENTATIVE Ot 780.54 09/17/2015 OSCAR KELLER ACCESS SERVICE REPRESENTATIVE Ot 786.09 09/24/2015 OSCAR KELLER ACCESS SERVICE REPRESENTATIVE Ot 278.00 09/24/2015 OSCAR KELLER ACCESS SERVICE REPRESENTATIVE Ot 401.9 09/24/2015 OSCAR KELLER ACCESS SERVICE REPRESENTATIVE Ot 496 09/24/2015 OSCAR KELLER ACCESS SERVICE REPRESENTATIVE Ot 780.54 09/24/2015 OSCAR KELLER ACCESS SERVICE REPRESENTATIVE Ot 786.09 10/31/2015 OSCAR KELLER ACCESS SERVICE REPRESENTATIVE Ot G47.10 HYPERSOMNIA, UNSPECIFIED 10/31/2015 OSCAR KELLER ACCESS SERVICE REPRESENTATIVE Ot I10 ESSENTIAL (PRIMARY) HYPERTENSION 10/31/2015 OSCAR KELLER ACCESS SERVICE REPRESENTATIVE Ot J44.9 CHRONIC OBSTRUCTIVE PULMONARY DISEASE, U 10/31/2015 OSCAR KELLER ACCESS SERVICE REPRESENTATIVE Ot R06.83 SNORING 07/09/2016 COSME VAL SHINETT Ruth Ot Z01.818 ENCOUNTER FOR OTHER PREPROCEDURAL EXAMIN 07/09/2016 COSME VAL SHINETT D Ot Z12. 11 ENCOUNTER FOR SCREENING FOR MALIGNANT NE 07/10/2016 COSME DOVALTT D Ot Z01.818 ENCOUNTER FOR OTHER PREPROCEDURAL EXAMIN 07/10/2016 COSME DO RUSTAM D Ot Z12. 11 ENCOUNTER FOR SCREENING FOR MALIGNANT NE 07/11/2016 RUSTAM COSME DO Ot K63. 5 POLYP OF COLON 07/11/2016 COSME DO RUSTAM D Ot Z12. 11 ENCOUNTER FOR SCREENING FOR MALIGNANT NE 07/15/2016 COSME VAL SHINETT D Ot Z01.818 ENCOUNTER FOR OTHER PREPROCEDURAL EXAMIN 07/15/2016 COSME [facility] SHINETT Ruth Ot Z12. 11 ENCOUNTER FOR SCREENING FOR MALIGNANT NE 07/16/2016 [facility] SHINETT Ruth Ot K63. 5 [facility] 11 ENCOUNTER FOR SCREENING FOR MALIGNANT NE 07/19/2016 COSME VAL SHINETT Ruth Ot K63. 5 POLYP OF COLON 07/19/2016 [facility] SHINETT Ruth Ot Z12. 11 ENCOUNTER FOR SCREENING FOR MALIGNANT NE 05/14/2018 OSCAR KELLER ACCESS SERVICE REPRESENTATIVE Ot 278.00 OBESITY, NOS 05/14/2018 OSCAR KELLER ACCESS SERVICE REPRESENTATIVE Ot 401.9 HYPERTENSION NOS 05/14/2018 OSCAR KELLER ACCESS SERVICE REPRESENTATIVE Ot 496 CHR AIRWAY OBSTRUCT NEC 05/14/2018 OSCAR KELLER ACCESS SERVICE REPRESENTATIVE Ot 780.54 HYPERSOMNIA, UNSPECIFIED 05/14/2018 OSCAR KELLRE ACCESS SERVICE REPRESENTATIVE Ot 786.09 RESPIRATORY ABNORM NEC 05/17/2018 JORI, BOBBY L ACCESS SERVICE REPRESENTATIVE Ot M79.89 OTHER SPECIFIED SOFT TISSUE DISORDERS 05/17/2018 JORI, BOBBY L ACCESS SERVICE REPRESENTATIVE Ot R06.00 DYSPNEA, UNSPECIFIED 05/17/2018 JORI, BOBBY L ACCESS SERVICE REPRESENTATIVE Ot S22.42XA MULTIPLE FRACTURES OF RIBS, LEFT SIDE, I 05/17/2018 JORI, BOBBY L ACCESS SERVICE REPRESENTATIVE Ot W19.XXXA UNSPECIFIED FALL, INITIAL ENCOUNTER 05/17/2018 JORI, BOBBY L ACCESS SERVICE REPRESENTATIVE Ot Z87.09 PERSONAL HISTORY OF OTHER DISEASES OF TH 05/17/2018 JORI, BOBBY L ACCESS SERVICE REPRESENTATIVE Ot 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 LEFT ARTIFICIAL KNEE JOINT 05/17/2018 JORI, BOBBY L ACCESS SERVICE REPRESENTATIVE Ot M79.89 OTHER SPECIFIED SOFT TISSUE DISORDERS 05/17/2018 JORI, BOBBY L ACCESS SERVICE REPRESENTATIVE Ot R06.00 DYSPNEA, UNSPECIFIED 05/17/2018 JORI, BOBBY L ACCESS SERVICE REPRESENTATIVE Ot R10 .9 UNSPECIFIED ABDOMINAL PAIN 05/17/2018 JORI, BOBBY L ACCESS SERVICE REPRESENTATIVE Ot S22.42XA MULTIPLE FRACTURES OF RIBS, LEFT SIDE, I 05/17/2018 JORI, BOBBY L ACCESS SERVICE REPRESENTATIVE Ot W19.XXXA UNSPECIFIED FALL, INITIAL ENCOUNTER 05/17/2018 JORI, BOBBY L ACCESS SERVICE REPRESENTATIVE Ot Z87.09 PERSONAL HISTORY OF OTHER DISEASES OF TH 05/17/2018 JORI, BOBBY L ACCESS SERVICE REPRESENTATIVE Ot 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 LEFT ARTIFICIAL KNEE JOINT 06/07/2018 JORI, BOBBY L ACCESS SERVICE REPRESENTATIVE Ot M79.89 OTHER SPECIFIED SOFT TISSUE DISORDERS 06/07/2018 JORI, BOBBY L ACCESS SERVICE REPRESENTATIVE Ot R06.00 DYSPNEA, UNSPECIFIED 06/07/2018 JORI, BOBBY L ACCESS SERVICE REPRESENTATIVE Ot R10 .9 UNSPECIFIED ABDOMINAL PAIN 06/07/2018 JORI, BOBBY L ACCESS SERVICE REPRESENTATIVE Ot S22.42XA MULTIPLE FRACTURES OF RIBS, LEFT SIDE, I 06/07/2018 JORI, BOBBY L ACCESS SERVICE REPRESENTATIVE Ot W19.XXXA UNSPECIFIED FALL, INITIAL ENCOUNTER 06/07/2018 JORI, BOBBY L ACCESS SERVICE REPRESENTATIVE Ot Z87.09 PERSONAL HISTORY OF OTHER DISEASES OF TH 06/07/2018 JORI, BOBBY L ACCESS SERVICE REPRESENTATIVE Ot 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 LEFT ARTIFICIAL KNEE JOINT 03/30/2019 OSCAR KELLER ACCESS SERVICE REPRESENTATIVE Ot 278.00 OBESITY, NOS 03/30/2019 OSCAR KELLER ACCESS SERVICE REPRESENTATIVE Ot 401.9 HYPERTENSION NOS 03/30/2019 OSCAR KELLER ACCESS SERVICE REPRESENTATIVE Ot 496 [employer] OBSTRUCT NEC 03/30/2019 OSCAR KELLER ACCESS SERVICE REPRESENTATIVE Ot 780.54 HYPERSOMNIA, UNSPECIFIED 03/30/2019 TRACY KELLERINE Leno ACCESS SERVICE REPRESENTATIVE Ot 786.09 RESPIRATORY ABNORM NEC 03/30/2019 JORI, BOBBY L ACCESS SERVICE REPRESENTATIVE Ot M79.89 OTHER SPECIFIED SOFT TISSUE DISORDERS 03/30/2019 JORI, BOBBY L ACCESS SERVICE REPRESENTATIVE Ot R06.00 DYSPNEA, UNSPECIFIED 03/30/2019 JORI, BOBBY L ACCESS SERVICE REPRESENTATIVE Ot R10 .9 UNSPECIFIED ABDOMINAL PAIN 03/30/2019 JORI, BOBBY L ACCESS SERVICE REPRESENTATIVE Ot S22.42XA MULTIPLE FRACTURES OF RIBS, LEFT SIDE, I 03/30/2019 JORI, BOBBY L ACCESS SERVICE REPRESENTATIVE Ot W19.XXXA UNSPECIFIED FALL, INITIAL ENCOUNTER 03/30/2019 JORI, BOBBY L ACCESS SERVICE REPRESENTATIVE Ot Z87.09 PERSONAL HISTORY OF OTHER DISEASES OF TH 03/30/2019 JORI, BOBBY L ACCESS SERVICE REPRESENTATIVE Ot 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 LEFT ARTIFICIAL KNEE JOINT 03/30/2019 TRACY KELLERINE E ACCESS SERVICE REPRESENTATIVE Ot 278.00 OBESITY, NOS 03/30/2019 TRACY KELLERINE E ACCESS SERVICE REPRESENTATIVE Ot 401.9 HYPERTENSION NOS 03/30/2019 OSCAR KELLER ACCESS SERVICE REPRESENTATIVE Ot 496 [employer] OBSTRUCT NEC 03/30/2019 OSCAR KELLER E ACCESS SERVICE REPRESENTATIVE Ot 780.54 HYPERSOMNIA, UNSPECIFIED 03/30/2019 OSCAR KELLER ACCESS SERVICE REPRESENTATIVE Ot 786.09 RESPIRATORY ABNORM NEC 03/30/2019 JORI, BOBBY L ACCESS SERVICE REPRESENTATIVE Ot M79.89 OTHER SPECIFIED SOFT TISSUE DISORDERS 03/30/2019 JORI, BOBBY L ACCESS SERVICE REPRESENTATIVE Ot R06.00 DYSPNEA, UNSPECIFIED 03/30/2019 JORI, BOBBY L ACCESS SERVICE REPRESENTATIVE Ot R10 .9 UNSPECIFIED ABDOMINAL PAIN 03/30/2019 JORI, BOBBY L ACCESS SERVICE REPRESENTATIVE Ot S22.42XA MULTIPLE FRACTURES OF RIBS, LEFT SIDE, I 03/30/2019 JORI, BOBBY L ACCESS SERVICE REPRESENTATIVE Ot W19.XXXA UNSPECIFIED FALL, INITIAL ENCOUNTER 03/30/2019 JORI, BOBBY L ACCESS SERVICE REPRESENTATIVE Ot Z87.09 PERSONAL HISTORY OF OTHER DISEASES OF TH 03/30/2019 JORI, BOBBY L ACCESS SERVICE REPRESENTATIVE Ot 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 LEFT ARTIFICIAL KNEE JOINT 03/30/2019 TRACY KELLERINE E ACCESS SERVICE REPRESENTATIVE Ot 278.00 OBESITY, NOS 03/30/2019 ARIANNA, OSCAR E ACCESS SERVICE REPRESENTATIVE Ot 401.9 HYPERTENSION NOS 03/30/2019 TRACY KELLERINE E ACCESS SERVICE REPRESENTATIVE Ot 496 CH[employer] AIRW[employer] OBSTRUCT NEC 03/30/2019 TRACY KELLERINE E ACCESS SERVICE REPRESENTATIVE Ot 780.54 HYPERSOMNIA, UNSPECIFIED 03/30/2019 TRACY KELLERINE E ACCESS SERVICE REPRESENTATIVE Ot 786.09 RESPIRATORY ABNORM NEC 03/30/2019 JORI, BOBBY L ACCESS SERVICE REPRESENTATIVE Ot M79.89 OTHER SPECIFIED SOFT TISSUE DISORDERS 03/30/2019 JORI, BOBBY L ACCESS SERVICE REPRESENTATIVE Ot R06.00 DYSPNEA, UNSPECIFIED 03/30/2019 JORI, BOBBY L ACCESS SERVICE REPRESENTATIVE Ot R10 .9 UNSPECIFIED ABDOMINAL PAIN 03/30/2019 JORI, BOBBY L ACCESS SERVICE REPRESENTATIVE Ot S22.42XA MULTIPLE FRACTURES OF RIBS, LEFT SIDE, I 03/30/2019 JORI, BOBBY L ACCESS SERVICE REPRESENTATIVE Ot W19.XXXA UNSPECIFIED FALL, INITIAL ENCOUNTER 03/30/2019 JORI, BOBBY L ACCESS SERVICE REPRESENTATIVE Ot Z87.09 PERSONAL HISTORY OF OTHER DISEASES OF TH 03/30/2019 JORI, BOBBY L ACCESS SERVICE REPRESENTATIVE Ot 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 LEFT ARTIFICIAL KNEE JOINT 03/30/2019 OSCAR KELLER ACCESS SERVICE REPRESENTATIVE Ot 278.00 OBESITY, NOS 03/30/2019 OSCAR KELLER ACCESS SERVICE REPRESENTATIVE Ot 401.9 HYPERTENSION NOS 03/30/2019 OSCAR KELLER ACCESS SERVICE REPRESENTATIVE Ot 496 CH[place] AIRW[employer] OBSTRUCT NEC 03/30/2019 OSCAR KELLER ACCESS SERVICE REPRESENTATIVE Ot 780.54 HYPERSOMNIA, UNSPECIFIED 03/30/2019 OSCAR KELLER ACCESS SERVICE REPRESENTATIVE Ot 786.09 RESPIRATORY ABNORM NEC 03/30/2019 JORI, BOBBY L ACCESS SERVICE REPRESENTATIVE Ot M79.89 OTHER SPECIFIED SOFT TISSUE DISORDERS 03/30/2019 JORI, BOBBY L ACCESS SERVICE REPRESENTATIVE Ot R06.00 DYSPNEA, UNSPECIFIED 03/30/2019 JORI, BOBBY L ACCESS SERVICE REPRESENTATIVE Ot R10 .9 UNSPECIFIED ABDOMINAL PAIN 03/30/2019 JORI, BOBBY L ACCESS SERVICE REPRESENTATIVE Ot S22.42XA MULTIPLE FRACTURES OF RIBS, LEFT SIDE, I 03/30/2019 JORI, BOBBY L ACCESS SERVICE REPRESENTATIVE Ot W19.XXXA UNSPECIFIED FALL, INITIAL ENCOUNTER 03/30/2019 JORI, BOBBY L ACCESS SERVICE REPRESENTATIVE Ot Z87.09 PERSONAL HISTORY OF OTHER DISEASES OF TH 03/30/2019 JORI, BOBBY L ACCESS SERVICE REPRESENTATIVE Ot 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 LEFT ARTIFICIAL KNEE JOINT 04/06/2019 TRACY KELLERINE Leno ACCESS SERVICE REPRESENTATIVE Ot 278.00 OBESITY, NOS 04/06/2019 TRACY KELLERINE E ACCESS SERVICE REPRESENTATIVE Ot 401.9 HYPERTENSION NOS 04/06/2019 TRACY KELLERINE E ACCESS SERVICE REPRESENTATIVE Ot 496 CH[employer] AIRW[employer] OBSTRUCT NEC 04/06/2019 TRACY KELLERINE E ACCESS SERVICE REPRESENTATIVE Ot 780.54 HYPERSOMNIA, UNSPECIFIED 04/06/2019 TRACY KELLERINE E ACCESS SERVICE REPRESENTATIVE Ot 786.09 RESPIRATORY ABNORM NEC 04/06/2019 JORI, BOBBY L ACCESS SERVICE REPRESENTATIVE Ot M79.89 OTHER SPECIFIED SOFT TISSUE DISORDERS 04/06/2019 JORI, BOBBY L ACCESS SERVICE REPRESENTATIVE Ot R06.00 DYSPNEA, UNSPECIFIED 04/06/2019 JORI, BOBBY L ACCESS SERVICE REPRESENTATIVE Ot R10 .9 UNSPECIFIED ABDOMINAL PAIN 04/06/2019 JORI, BOBBY L ACCESS SERVICE REPRESENTATIVE Ot S22.42XA MULTIPLE FRACTURES OF RIBS, LEFT SIDE, I 04/06/2019 JORI, BOBBY L ACCESS SERVICE REPRESENTATIVE Ot W19.XXXA UNSPECIFIED FALL, INITIAL ENCOUNTER 04/06/2019 JORI, BOBBY L ACCESS SERVICE REPRESENTATIVE Ot Z87.09 PERSONAL HISTORY OF OTHER DISEASES OF TH 04/06/2019 JORI, BOBBY L ACCESS SERVICE REPRESENTATIVE Ot 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 LEFT ARTIFICIAL KNEE JOINT 04/06/2019 OSCAR KELLER ACCESS SERVICE REPRESENTATIVE Ot 278.00 OBESITY, NOS 04/06/2019 OSCAR KELLER ACCESS SERVICE REPRESENTATIVE Ot 401.9 HYPERTENSION NOS 04/06/2019 OSCAR KELLER ACCESS SERVICE REPRESENTATIVE Ot 496 CH[employer] AIRWAY OBSTRUCT NEC 04/06/2019 OSCAR KELLER ACCESS SERVICE REPRESENTATIVE Ot 780.54 HYPERSOMNIA, UNSPECIFIED 04/06/2019 OSCAR KELLER E ACCESS SERVICE REPRESENTATIVE Ot 786.09 RESPIRATORY ABNORM NEC 04/06/2019 JORI, BOBBY L ACCESS SERVICE REPRESENTATIVE Ot M79.89 OTHER SPECIFIED SOFT TISSUE DISORDERS 04/06/2019 JORI, BOBBY L ACCESS SERVICE REPRESENTATIVE Ot R06.00 DYSPNEA, UNSPECIFIED 04/06/2019 JORI, BOBBY L ACCESS SERVICE REPRESENTATIVE Ot R10 .9 UNSPECIFIED ABDOMINAL PAIN 04/06/2019 JORI, BOBBY L ACCESS SERVICE REPRESENTATIVE Ot S22.42XA MULTIPLE FRACTURES OF RIBS, LEFT SIDE, I 04/06/2019 JORI, BOBBY L ACCESS SERVICE REPRESENTATIVE Ot W19.XXXA UNSPECIFIED FALL, INITIAL ENCOUNTER 04/06/2019 BOBBY HSIEH ACCESS SERVICE REPRESENTATIVE Ot Z87.09 PERSONAL HISTORY OF OTHER DISEASES OF TH 04/06/2019 BERTRAM HSIEHCharles Serrano APRN Ot 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 LEFT ARTIFICIAL KNEE JOINT 04/08/2019 DAVID EDGAR, Marta CHAIDEZ Ot I49 .3 VENTRICULAR PREMATURE DEPOLARIZATION 04/08/2019 Marta HERNANDEZ MD Ot R42 DIZZINESS AND GIDDINESS 04/08/2019 Marta HERNANDEZ MD Ot R55 SYNCOPE AND COLLAPSE 04/28/2019 Marta HERNANDEZ MD, Ot I49 .3 VENTRICULAR PREMATURE DEPOLARIZATION 04/28/2019 DAVID EDGAR, Marta CHAIDEZ Ot R42 DIZZINESS AND GIDDINESS 04/28/2019 Marta HERNANDEZ MD, Ot R55 SYNCOPE AND COLLAPSE 06/13/2019 BENJAMIN [...] HISTORY OF NICOTINE DEPENDENCE 06/14/2019 OSCAR KELLER ACCESS SERVICE REPRESENTATIVE Ot 278.00 OBESITY, NOS 06/14/2019 OSCAR KELLER ACCESS SERVICE REPRESENTATIVE Ot 401.9 HYPERTENSION NOS 06/14/2019 OSCAR KELLER ACCESS SERVICE REPRESENTATIVE Ot 496 [place] [employer] OBSTRUCT NEC 06/14/2019 OSCAR KELLER ACCESS SERVICE REPRESENTATIVE Ot 780.54 HYPERSOMNIA, UNSPECIFIED 06/14/2019 OSCAR KELLER ACCESS SERVICE REPRESENTATIVE Ot 786.09 RESPIRATORY ABNORM NEC 06/14/2019 BOBBY HSIEH ACCESS SERVICE REPRESENTATIVE Ot M79.89 OTHER SPECIFIED SOFT TISSUE DISORDERS 06/14/2019 BOBBY HSIEH APRN Ot R06.00 DYSPNEA, UNSPECIFIED 06/14/2019 BOBBY HSIEH ACCESS SERVICE REPRESENTATIVE Ot R10 .9 UNSPECIFIED ABDOMINAL PAIN 06/14/2019 BOBBY HSIEH ACCESS SERVICE REPRESENTATIVE Ot S22.42XA MULTIPLE FRACTURES OF RIBS, LEFT SIDE, I 06/14/2019 BOBBY HSIEH ACCESS SERVICE REPRESENTATIVE Ot W19.XXXA UNSPECIFIED FALL, INITIAL ENCOUNTER 06/14/2019 BOBBY HSIEH ACCESS SERVICE REPRESENTATIVE Ot Z87.09 PERSONAL HISTORY OF OTHER DISEASES OF TH 06/14/2019 BOBBY HSIEH ACCESS SERVICE REPRESENTATIVE Ot 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 LEFT ARTIFICIAL KNEE [...] Ot R42 DIZZINESS AND GIDDINESS 07/05/2019 DAVID EDGRA, Marta CHAIDEZ Ot R55 SYNCOPE AND COLLAPSE 08/16/2019 ISAI AVILA MD R Ot E87. 2 ACIDOSIS 08/16/2019 ISAI AVILA MD R Ot E87. 6 HYPOKALEMIA 08/16/2019 ISAI AVILA MD R Ot I10 ESSENTIAL (PRIMARY) HYPERTENSION 08/16/2019 ISAI AVILA MD Ot I11. 0 HYPERTENSIVE HEART DISEASE WITH HEART FA 08/16/2019 ISAI AVILA MD Ot I48. 0 PAROXYSMAL ATRIAL FIBRILLATION 08/16/2019 ISAI AVILA MD R Ot I50. 31 ACUTE DIASTOLIC (CONGESTIVE) HEART FAILU 08/16/2019 ISAI AVILA MD Ot J44. 1 CHRONIC OBSTRUCTIVE PULMONARY DISEASE W 08/16/2019 ISAI AVILA MD R Ot M19. 91 PRIMARY OSTEOARTHRITIS, UNSPECIFIED SITE 08/16/2019 MARGARITA EDGAR, ISAI R Ot M54. 9 DORSALGIA, UNSPECIFIED 08/16/2019 MARGARITA EDGAR, ISAI R Ot Z87.891 PERSONAL HISTORY OF NICOTINE DEPENDENCE 08/16/2019 MARGARITA EDGAR, ISAI R Ot Z88. 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 08/22/2019 DAVID EDGAR, Marta CHAIDEZ Ot R07 .9 CHEST PAIN, UNSPECIFIED 08/23/2019 OSCAR KELLER ACCESS SERVICE REPRESENTATIVE Ot 278.00 OBESITY, NOS 08/23/2019 OSCAR KELLER ACCESS SERVICE REPRESENTATIVE Ot 401.9 HYPERTENSION NOS 08/23/2019 OSCAR KELLER ACCESS SERVICE REPRESENTATIVE Ot 496 [place] AIRW[place] OBSTRUCT NEC 08/23/2019 OSCAR KELLER ACCESS SERVICE REPRESENTATIVE Ot 780.54 HYPERSOMNIA, UNSPECIFIED 08/23/2019 OSCAR KELLER ACCESS SERVICE REPRESENTATIVE Ot 786.09 RESPIRATORY ABNORM NEC 08/23/2019 JORI, BOBBY L ACCESS SERVICE REPRESENTATIVE Ot M79.89 OTHER SPECIFIED SOFT TISSUE DISORDERS 08/23/2019 JORI, BOBBY L ACCESS SERVICE REPRESENTATIVE Ot R06.00 DYSPNEA, UNSPECIFIED 08/23/2019 JORI, BOBBY L ACCESS SERVICE REPRESENTATIVE Ot R10 .9 UNSPECIFIED ABDOMINAL PAIN 08/23/2019 JORI, BOBBY L ACCESS SERVICE REPRESENTATIVE Ot S22.42XA MULTIPLE FRACTURES OF RIBS, LEFT SIDE, I 08/23/2019 JORI, BOBBY L ACCESS SERVICE REPRESENTATIVE Ot W19.XXXA UNSPECIFIED FALL, INITIAL ENCOUNTER 08/23/2019 JORIBERTRAM CABELLON L ACCESS SERVICE REPRESENTATIVE Ot Z87.09 PERSONAL HISTORY OF OTHER DISEASES OF TH 08/23/2019 JORI, BOBBY L ACCESS SERVICE REPRESENTATIVE Ot 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 LEFT ARTIFICIAL KNEE [...] OSCAR KELLER APRN Ot G47.10 HYPERSOMNIA, UNSPECIFIED 08/24/2019 OSCAR KELLER APRN Ot G47.10 HYPERSOMNIA, UNSPECIFIED 08/24/2019 OSCAR KELLER APRN Ot G47.36 SLEEP RELATED HYPOVENTILATION IN CONDITI 08/24/2019 OSCAR KELLER APRN Ot G47.50 PARASOMNIA, UNSPECIFIED 09/07/2019 Marta HERNANDEZ [...] Ot I25. 10 ATHSCL HEART DISEASE OF [place] CORONARY 10/06/2019 PATRICIA REID MD, Ot I48. 0 PAROXYSMAL ATRIAL FIBRILLATION 10/06/2019 PATRICIA REID MD Ot I50. 31 ACUTE DIASTOLIC (CONGESTIVE) HEART FAILU 10/06/2019 PATRICIA REID MD, Ot J44. 1 CHRONIC OBSTRUCTIVE PULMONARY DISEASE W 10/06/2019 PATRICIA REID MD, Ot J96. 00 ACUTE RESPIRATORY FAILURE, UNSP W HYPOXI 10/06/2019 FRANKLIN MD, PATRICIA M Ot Z23 ENCOUNTER FOR IMMUNIZATION 10/06/2019 FRANKLIN EDGAR, PATRICIA Lozano Ot Z87.891 PERSONAL HISTORY OF NICOTINE DEPENDENCE [...] Ot I25. 10 ATHSCL HEART DISEASE OF [place] CORONARY 11/01/2019 ISAI AVILA MD Ot I48. 19 OTHER PERSISTENT ATRIAL FIBRILLATION 11/01/2019 ISAI AVILA MD Ot I49. 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 1 CHRONIC OBSTRUCTIVE PULMONARY DISEASE W 11/01/2019 ISAI AVILA MD Ot J96. 01 ACUTE RESPIRATORY FAILURE WITH [...] MD Ot I25.10 ATHSCL HEART DISEASE OF [place] CORONARY 11/03/2019 Marta HERNANDEZ MD Ot I48.19 [...] ADULT 11/03/2019 Marta HERNANDEZ MD Ot Z79.01 INTERMEDIATE (CURRENT) USE OF ANTICOAGULANT 11/03/2019 Marta HERNANDEZ MD Ot Z79.899 OTHER CAR COUPLER (CURRENT) DRUG THERAPY 11/03/2019 Marta HERNANDEZ MD [...] MD Ot I25.10 ATHSCL HEART DISEASE OF [place] CORONARY 11/07/2019 Marta HERNANDEZ MD Ot I48.19 [...] ADULT 11/07/2019 Marta HERNANDEZ MD, Ot Z79.01 INTERMEDIATE (CURRENT) USE OF ANTICOAGULANT 11/07/2019 Marta HERNANDEZ MD, Ot Z79.899 OTHER CAR COUPLER (CURRENT) DRUG THERAPY 11/07/2019 Marta HERNANDEZ MD, [...] OBSTRUCTIVE PULMONARY DISEASE W 12/26/2019 OSCAR KELLER ACCESS SERVICE REPRESENTATIVE Ot G47.10 HYPERSOMNIA, UNSPECIFIED 12/26/2019 OSCAR KELLER ACCESS SERVICE REPRESENTATIVE Ot G47.36 SLEEP RELATED HYPOVENTILATION IN CONDITI 12/26/2019 OSCAR KELLER ACCESS SERVICE REPRESENTATIVE Ot G47.50 PARASOMNIA, UNSPECIFIED 12/26/2019 OSCAR KELLER ACCESS SERVICE REPRESENTATIVE Ot J43.9 EMPHYSEMA, UNSPECIFIED 12/26/2019 OSCAR KELLER APRN Ot J90 PLEURAL EFFUSION, NOT ELSEWHERE CLASSIFI 12/26/2019 OSCAR KELLER ACCESS SERVICE REPRESENTATIVE Ot R91.8 OTHER NONSPECIFIC ABNORMAL FINDING OF JD 02/03/2020 OSCAR KELLER ACCESS SERVICE REPRESENTATIVE Ot J43.9 EMPHYSEMA, UNSPECIFIED 02/03/2020 OSCAR KELLER ACCESS SERVICE REPRESENTATIVE Ot J90 PLEURAL EFFUSION, NOT ELSEWHERE CLASSIFI 02/03/2020 ARIANNA, OSCAR E ACCESS SERVICE REPRESENTATIVE Ot J96.91 RESPIRATORY FAILURE, UNSPECIFIED WITH HY 02/03/2020 ARIANNA, OSCAR E ACCESS SERVICE REPRESENTATIVE Ot R06.00 DYSPNEA, UNSPECIFIED 02/03/2020 ARIANNA, OSCAR E ACCESS SERVICE REPRESENTATIVE Ot R09.02 HYPOXEMIA 02/03/2020 ARIANNA, OSCAR E ACCESS SERVICE REPRESENTATIVE Ot W07.XXXD FALL FROM CHAIR, SUBSEQUENT ENCOUNTER 02/07/2020 FRANKLIN EDGAR, PATRICIA Lozano Ot J44. 1 CHRONIC OBSTRUCTIVE PULMONARY DISEASE W 02/08/2020 ARIANNA, OSCAR E ACCESS SERVICE REPRESENTATIVE Ot J43.9 EMPHYSEMA, UNSPECIFIED 02/08/2020 ARIANNA, OSCAR E ACCESS SERVICE REPRESENTATIVE Ot J90 PLEURAL EFFUSION, NOT ELSEWHERE CLASSIFI 02/08/2020 ARIANNA, OSCAR E ACCESS SERVICE REPRESENTATIVE Ot J96.91 RESPIRATORY FAILURE, UNSPECIFIED WITH HY 02/08/2020 ARIANNA, OSCAR E ACCESS SERVICE REPRESENTATIVE Ot R06.00 DYSPNEA, UNSPECIFIED 02/08/2020 ARIANNA, OSCAR E ACCESS SERVICE REPRESENTATIVE Ot R09.02 HYPOXEMIA 02/08/2020 ARIANNA, OSCAR E ACCESS SERVICE REPRESENTATIVE Ot W07.XXXD FALL FROM CHAIR, SUBSEQUENT ENCOUNTER 02/08/2020 FRANKLIN EDGAR, PATRICIA Lozano Ot J44. 1 CHRONIC OBSTRUCTIVE PULMONARY DISEASE W 02/22/2020 ARIANNA, OSCAR E ACCESS SERVICE REPRESENTATIVE Ot J43.9 EMPHYSEMA, UNSPECIFIED 02/22/2020 ARIANNA, OSCAR E ACCESS SERVICE REPRESENTATIVE Ot J90 PLEURAL EFFUSION, NOT ELSEWHERE CLASSIFI 02/22/2020 ARIANNA, OSCAR E ACCESS SERVICE REPRESENTATIVE Ot J96.91 RESPIRATORY FAILURE, UNSPECIFIED WITH HY 02/22/2020 ARIANNA, OSCAR E ACCESS SERVICE REPRESENTATIVE Ot R06.00 DYSPNEA, UNSPECIFIED 02/22/2020 ARIANNA, OSCAR E ACCESS SERVICE REPRESENTATIVE Ot R09.02 HYPOXEMIA 02/22/2020 ARIANNA, OSCAR E ACCESS SERVICE REPRESENTATIVE Ot W07.XXXD FALL FROM CHAIR, SUBSEQUENT ENCOUNTER 03/02/2020 MICHAEL TAYLOR ACCESS SERVICE REPRESENTATIVE Ot M25.461 EFFUSION, RIGHT KNEE 03/02/2020 MICHAEL TAYLOR R ACCESS SERVICE REPRESENTATIVE Ot M25.561 PAIN IN RIGHT KNEE 03/02/2020 MICHAEL TAYLOR R ACCESS SERVICE REPRESENTATIVE Ot Z96.651 PRESENCE OF RIGHT ARTIFICIAL KNEE JOINT 03/05/2020 MICHAEL TAYLOR ACCESS SERVICE REPRESENTATIVE Ot M25.461 EFFUSION, RIGHT KNEE 03/05/2020 CLAUDIA, MICHAEL R ACCESS SERVICE REPRESENTATIVE Ot M25.561 PAIN IN RIGHT KNEE 03/05/2020 CLAUDIA, MICHAEL R ACCESS SERVICE REPRESENTATIVE Ot Z96.651 PRESENCE OF RIGHT ARTIFICIAL KNEE JOINT 03/05/2020 CLAUDIA, MICHAEL R ACCESS SERVICE REPRESENTATIVE Ot M25.461 EFFUSION, RIGHT KNEE 03/05/2020 CLAUDIA, MICHAEL R ACCESS SERVICE REPRESENTATIVE Ot M25.561 PAIN IN RIGHT KNEE 03/05/2020 CLAUDIA, MICHAEL R ACCESS SERVICE REPRESENTATIVE Ot Z96.651 PRESENCE OF RIGHT ARTIFICIAL KNEE JOINT 03/06/2020 CLAUDIA, MICHAEL R ACCESS SERVICE REPRESENTATIVE Ot M25.461 EFFUSION, RIGHT KNEE 03/06/2020 CLAUDIA, MICHAEL R ACCESS SERVICE REPRESENTATIVE Ot M25.561 PAIN IN RIGHT KNEE 03/06/2020 CLAUDIA, MICHAEL R ACCESS SERVICE REPRESENTATIVE Ot Z96.651 PRESENCE OF RIGHT ARTIFICIAL KNEE JOINT 03/21/2020 CLAUDIA, MICHAEL R ACCESS SERVICE REPRESENTATIVE Ot M25.461 EFFUSION, RIGHT KNEE 03/21/2020 CLAUDIA, MICHAEL R ACCESS SERVICE REPRESENTATIVE Ot M25.561 PAIN IN RIGHT KNEE 03/21/2020 CLAUDIA, MICHAEL R ACCESS SERVICE REPRESENTATIVE Ot Z96.651 PRESENCE OF RIGHT ARTIFICIAL KNEE [...] Ot I25. 10 ATHSCL HEART DISEASE OF [place] CORONARY 04/09/2020 PATRICIA REID MD Ot I47. 1 SUPRAVENTRICULAR TACHYCARDIA 04/09/2020 PATRICIA REID MD Ot I47. 2 VENTRICULAR TACHYCARDIA 04/09/2020 PATRICIA REID MD Ot I48. 0 PAROXYSMAL ATRIAL FIBRILLATION 04/09/2020 FRANKLIN MD, PATRICIA M Ot I50. 33 ACUTE ON CHRONIC DIASTOLIC (CONGESTIVE) 04/09/2020 PATRICIA REID MD, Ot J44. 1 CHRONIC OBSTRUCTIVE PULMONARY DISEASE W 04/09/2020 PATRICIA REID MD Ot J96. 21 ACUTE AND CHRONIC RESPIRATORY FAILURE [place] 04/09/2020 PATRICIA REID MD Ot K29. 70 GASTRITIS, UNSPECIFIED, WITHOUT BLEEDING 04/09/2020 PATRICIA REID MD Ot K44. 9 DIAPHRAGMATIC HERNIA WITHOUT OBSTRUCTION 04/09/2020 PATRICIA REID MD, Ot M19. 91 PRIMARY OSTEOARTHRITIS, UNSPECIFIED SITE 04/09/2020 PATRICIA REID MD, Ot Z87.891 PERSONAL HISTORY OF NICOTINE DEPENDENCE 04/09/2020 PATRICIA REID MD, Ot Z90. 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 04/17/2020 DEMARIO TO MD Ot D64. 9 ANEMIA, UNSPECIFIED 04/17/2020 DEMARIO TO MD Ot F41. 9 ANXIETY DISORDER, UNSPECIFIED 04/17/2020 DEMARIO TO MD Ot I08. 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 A1 MYOCARDIAL INFARCTION TYPE 2 04/17/2020 DEMARIO TO MD Ot I25. 10 ATHSCL HEART DISEASE OF [place] CORONARY 04/17/2020 DEMARIO TO MD Ot I48. 0 PAROXYSMAL ATRIAL FIBRILLATION 04/17/2020 DEMARIO TO MD Ot I50. 33 ACUTE ON CHRONIC DIASTOLIC (CONGESTIVE) 04/17/2020 DEMARIO TO MD Ot J18. 9 PNEUMONIA, UNSPECIFIED ORGANISM 04/17/2020 DEMARIO TO MD Ot J30. 2 OTHER SEASONAL ALLERGIC RHINITIS 04/17/2020 DEMARIO TO MD Ot J44. 0 CHR OBSTRUCTIVE PULMON DISEASE WITH (ACU 04/17/2020 DEMARIO TO MD Ot J44. 1 CHRONIC OBSTRUCTIVE PULMONARY DISEASE W 04/17/2020 DEMARIO TO MD Ot M19. 91 PRIMARY OSTEOARTHRITIS, UNSPECIFIED SITE 04/17/2020 DEMARIO TO MD Ot N17. 9 ACUTE KIDNEY FAILURE, UNSPECIFIED 04/17/2020 DEMARIO TO MD, Ot N18. 9 CHRONIC KIDNEY DISEASE, UNSPECIFIED 04/17/2020 DEMARIO TO MD Ot Z87.891 PERSONAL HISTORY OF NICOTINE DEPENDENCE 04/17/2020 DEMARIO TO MD Ot Z95. 1 PRESENCE OF AORTOCORONARY BYPASS GRAFT 04/17/2020 DEMARIO TO MD Ot Z96.653 PRESENCE OF ARTIFICIAL KNEE JOINT, BILAT 04/17/2020 DEMARIO TO MD, Ot Z99. 81 DEPENDENCE ON SUPPLEMENTAL OXYGEN 04/18/2020 DEMARIO TO MD, Ot D64. 9 ANEMIA, UNSPECIFIED 04/18/2020 DEMARIO TO MD, Ot F41. 9 ANXIETY DISORDER, UNSPECIFIED 04/18/2020 DEMARIO TO MD, Ot I08. 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 A1 MYOCARDIAL INFARCTION TYPE 2 04/18/2020 DEMARIO TO MD, Ot I25. 10 ATHSCL HEART DISEASE OF [place] CORONARY 04/18/2020 DEMARIO TO MD Ot I48. 0 PAROXYSMAL ATRIAL FIBRILLATION 04/18/2020 DEMARIO TO MD Ot I50. 33 ACUTE ON CHRONIC DIASTOLIC (CONGESTIVE) 04/18/2020 DEMARIO TO MD Ot J18. 9 PNEUMONIA, UNSPECIFIED ORGANISM 04/18/2020 DEMARIO TO MD Ot J30. 2 OTHER SEASONAL ALLERGIC RHINITIS 04/18/2020 DEMARIO TO MD Ot J44. 0 CHR OBSTRUCTIVE PULMON DISEASE WITH (ACU 04/18/2020 DEMARIO TO MD Ot J44. 1 CHRONIC OBSTRUCTIVE PULMONARY DISEASE W 04/18/2020 DEMARIO TO MD Ot M19. 91 PRIMARY OSTEOARTHRITIS, UNSPECIFIED SITE 04/18/2020 DEMARIO TO MD, Ot N17. 9 ACUTE KIDNEY FAILURE, UNSPECIFIED 04/18/2020 DEMARIO TO MD Ot N18. 9 CHRONIC KIDNEY DISEASE, UNSPECIFIED 04/18/2020 DEMARIO TO MD, Ot Z87.891 PERSONAL HISTORY OF NICOTINE DEPENDENCE 04/18/2020 DEMARIO TO MD Ot Z95. 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 9 ANEMIA, UNSPECIFIED 04/18/2020 DEMARIO TO MD Ot F41. 9 ANXIETY DISORDER, UNSPECIFIED 04/18/2020 DEMARIO TO MD Ot I08. 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 A1 MYOCARDIAL INFARCTION TYPE 2 04/18/2020 DEMARIO TO MD, Ot I25. 10 ATHSCL HEART DISEASE OF [place] CORONARY 04/18/2020 DEMARIO TO MD Ot I48. 0 PAROXYSMAL ATRIAL FIBRILLATION 04/18/2020 DEMARIO TO MD Ot I50. 33 ACUTE ON CHRONIC DIASTOLIC (CONGESTIVE) 04/18/2020 DEMARIO TO MD Ot J18. 9 PNEUMONIA, UNSPECIFIED ORGANISM 04/18/2020 DEMARIO TO MD Ot J30. 2 OTHER SEASONAL ALLERGIC RHINITIS 04/18/2020 DEMARIO TO MD Ot J44. 0 CHR OBSTRUCTIVE PULMON DISEASE WITH (ACU 04/18/2020 DEMARIO TO MD Ot J44. 1 CHRONIC OBSTRUCTIVE PULMONARY DISEASE W 04/18/2020 EDMARIO TO MD Ot M19. 91 PRIMARY OSTEOARTHRITIS, UNSPECIFIED SITE 04/18/2020 DEMARIO TO MD Ot N17. 9 ACUTE KIDNEY FAILURE, UNSPECIFIED 04/18/2020 DEMARIO TO MD Ot N18. 9 CHRONIC KIDNEY DISEASE, UNSPECIFIED 04/18/2020 DEMARIO TO MD Ot Z87.891 PERSONAL HISTORY OF NICOTINE DEPENDENCE 04/18/2020 DEMARIO TO MD Ot Z95. 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 9 ANEMIA, UNSPECIFIED 04/19/2020 DEMARIO TO MD Ot F41. 9 ANXIETY DISORDER, UNSPECIFIED 04/19/2020 DEMARIO TO MD Ot I08. 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 A1 MYOCARDIAL INFARCTION TYPE 2 04/19/2020 DEMARIO TO MD, Ot I25. 10 ATHSCL HEART DISEASE OF [place] CORONARY 04/19/2020 DEMARIO TO MD Ot I48. 0 PAROXYSMAL ATRIAL FIBRILLATION 04/19/2020 DEMARIO TO MD Ot I50. 33 ACUTE ON CHRONIC DIASTOLIC (CONGESTIVE) 04/19/2020 DEMARIO TO MD Ot J18. 9 PNEUMONIA, UNSPECIFIED ORGANISM 04/19/2020 DEMARIO TO MD Ot J30. 2 OTHER SEASONAL ALLERGIC RHINITIS 04/19/2020 DEMARIO TO MD Ot J44. 0 CHR OBSTRUCTIVE PULMON DISEASE WITH (ACU 04/19/2020 DEMARIO TO MD Ot J44. 1 CHRONIC OBSTRUCTIVE PULMONARY DISEASE W 04/19/2020 DEMARIO TO MD Ot M19. 91 PRIMARY OSTEOARTHRITIS, UNSPECIFIED SITE 04/19/2020 DEMARIO TO MD Ot N17. 9 ACUTE KIDNEY FAILURE, UNSPECIFIED 04/19/2020 DEMARIO TO MD Ot N18. 9 CHRONIC KIDNEY DISEASE, UNSPECIFIED 04/19/2020 DEMARIO TO MD Ot Z87.891 PERSONAL HISTORY OF NICOTINE DEPENDENCE 04/19/2020 DEMARIO TO MD Ot Z95. 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 9 ANEMIA, UNSPECIFIED 04/19/2020 DEMARIO TO MD Ot F41. 9 ANXIETY DISORDER, UNSPECIFIED 04/19/2020 DEMARIO TO MD Ot I08. 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 A1 MYOCARDIAL INFARCTION TYPE 2 04/19/2020 DEMARIO TO MD Ot I25. 10 ATHSCL HEART DISEASE OF [place] CORONARY 04/19/2020 DEMARIO TO MD Ot I48. 0 PAROXYSMAL ATRIAL FIBRILLATION 04/19/2020 DEMARIO TO MD Ot I50. 33 ACUTE ON CHRONIC DIASTOLIC (CONGESTIVE) 04/19/2020 DEMARIO TO MD Ot J18. 9 PNEUMONIA, UNSPECIFIED ORGANISM 04/19/2020 DEMARIO TO MD Ot J30. 2 OTHER SEASONAL ALLERGIC RHINITIS 04/19/2020 DEMARIO TO MD Ot J44. 0 CHR OBSTRUCTIVE PULMON DISEASE WITH (ACU 04/19/2020 DEMARIO TO MD Ot J44. 1 CHRONIC OBSTRUCTIVE PULMONARY DISEASE W 04/19/2020 DEMARIO TO MD Ot M19. 91 PRIMARY OSTEOARTHRITIS, UNSPECIFIED SITE 04/19/2020 DEMARIO TO MD Ot N17. 9 ACUTE KIDNEY FAILURE, UNSPECIFIED 04/19/2020 DEMARIO TO MD Ot N18. 9 CHRONIC KIDNEY DISEASE, UNSPECIFIED 04/19/2020 DEMARIO TO MD Ot Z87.891 PERSONAL HISTORY OF NICOTINE DEPENDENCE 04/19/2020 DEMARIO TO MD Ot Z95. 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 9 ANEMIA, UNSPECIFIED 04/20/2020 DEMARIO TO MD Ot F41. 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 A1 MYOCARDIAL INFARCTION TYPE 2 04/20/2020 DEMARIO TO MD Ot I25. 10 ATHSCL HEART DISEASE OF [place] CORONARY 04/20/2020 DEMARIO TO MD Ot I48. 0 PAROXYSMAL ATRIAL FIBRILLATION 04/20/2020 DEMARIO TO MD Ot I50. 33 ACUTE ON CHRONIC DIASTOLIC (CONGESTIVE) 04/20/2020 DEMARIO TO MD Ot J18. 9 PNEUMONIA, UNSPECIFIED ORGANISM 04/20/2020 DEMARIO TO MD Ot J30. 2 OTHER SEASONAL ALLERGIC RHINITIS 04/20/2020 DEMARIO TO MD Ot J44. 0 CHR OBSTRUCTIVE PULMON DISEASE WITH (ACU 04/20/2020 DEMARIO TO MD Ot J44. 1 CHRONIC OBSTRUCTIVE PULMONARY DISEASE W 04/20/2020 DEMARIO TO MD Ot M19. 91 PRIMARY OSTEOARTHRITIS, UNSPECIFIED SITE 04/20/2020 DEMARIO TO MD Ot N17. 9 ACUTE KIDNEY FAILURE, UNSPECIFIED 04/20/2020 DEMARIO TO MD Ot N18. 9 CHRONIC KIDNEY DISEASE, UNSPECIFIED 04/20/2020 DEMARIO TO MD Ot Z87.891 PERSONAL HISTORY OF NICOTINE DEPENDENCE 04/20/2020 DEMARIO TO MD Ot Z95. 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 9 ANEMIA, UNSPECIFIED 04/20/2020 DEMARIO TO MD Ot F41. 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 A1 MYOCARDIAL INFARCTION TYPE 2 04/20/2020 DEMARIO TO MD Ot I25. 10 ATHSCL HEART DISEASE OF [place] CORONARY 04/20/2020 DEMARIO TO MD, Ot I48. 0 PAROXYSMAL ATRIAL FIBRILLATION 04/20/2020 DEMARIO TO MD Ot I50. 33 ACUTE ON CHRONIC DIASTOLIC (CONGESTIVE) 04/20/2020 DEMARIO TO MD Ot J18. 9 PNEUMONIA, UNSPECIFIED ORGANISM 04/20/2020 DEMARIO TO MD, Ot J30. 2 OTHER SEASONAL ALLERGIC RHINITIS 04/20/2020 DEMARIO TO MD Ot J44. 0 CHR OBSTRUCTIVE PULMON DISEASE WITH (ACU 04/20/2020 DEMARIO TO MD, Ot J44. 1 CHRONIC OBSTRUCTIVE PULMONARY DISEASE W 04/20/2020 DEMARIO TO MD, Ot M19. 91 PRIMARY OSTEOARTHRITIS, UNSPECIFIED SITE 04/20/2020 DEMARIO TO MD, Ot N17. 9 ACUTE KIDNEY FAILURE, UNSPECIFIED 04/20/2020 DEMARIO TO MD, Ot N18. 9 CHRONIC KIDNEY DISEASE, UNSPECIFIED 04/20/2020 DEMARIO TO MD Ot Z87.891 PERSONAL HISTORY OF NICOTINE DEPENDENCE 04/20/2020 DEMARIO TO MD Ot Z95. 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 9 ANEMIA, UNSPECIFIED 04/20/2020 DEMARIO TO MD Ot F41. 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 A1 MYOCARDIAL INFARCTION TYPE 2 04/20/2020 DEMARIO TO MD Ot I25. 10 ATHSCL HEART DISEASE OF [place] CORONARY 04/20/2020 DEMARIO TO MD Ot I47. 1 SUPRAVENTRICULAR TACHYCARDIA 04/20/2020 DEMARIO TO MD Ot I47. 2 VENTRICULAR TACHYCARDIA 04/20/2020 DEMARIO TO MD Ot I48. 0 PAROXYSMAL ATRIAL FIBRILLATION 04/20/2020 DEMARIO TO MD, Ot I50. 33 ACUTE ON CHRONIC DIASTOLIC (CONGESTIVE) 04/20/2020 DEMARIO TO MD, Ot J18. 9 PNEUMONIA, UNSPECIFIED ORGANISM 04/20/2020 DEMARIO TO MD, Ot J30. 2 OTHER SEASONAL ALLERGIC RHINITIS 04/20/2020 DEMARIO TO MD, Ot J44. 0 CHR OBSTRUCTIVE PULMON DISEASE WITH (ACU 04/20/2020 DEMARIO TO MD, Ot J44. 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 91 PRIMARY OSTEOARTHRITIS, UNSPECIFIED SITE 04/20/2020 DEMARIO TO MD, Ot N17. 9 ACUTE KIDNEY FAILURE, UNSPECIFIED 04/20/2020 DEMARIO TO MD Ot N18. 3 CHRONIC KIDNEY DISEASE, STAGE 3 (MODERAT 04/20/2020 DEMARIO TO MD, Ot N18. 9 CHRONIC KIDNEY DISEASE, UNSPECIFIED 04/20/2020 DEMARIO TO MD Ot Z87.891 PERSONAL HISTORY OF NICOTINE DEPENDENCE 04/20/2020 DEMARIO TO MD Ot Z95. 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 Procedures Code Description Performed By Per formed On [id number] RE STORATION OF CARDIAC RHYTHM, SINGLE 08/15/2019 [id number] ME ASURE OF CARDIAC SAMPL PRESSURE, L H 10/04/2019 [id number] ME ASUREMENT OF ARTERIAL PRESSURE, MCGRATH 10/04/2019 [id number] FL UOROSCOPY OF MULT COR ART USING L OSM 10/04/2019 [id number] EX CISION OF ESOPHAGOGASTRIC JUNCTION, EN 04/08/2020 [id number] EX CISION OF STOMACH, PYLORUS, ENDO, DIAG [...] OF GROWTH Isolated NRG Bacterial blood culture [id number] NRG Influenza virus A and B antigen detectio [...] OF GROWTH Isolated NRG Bacterial blood culture [id number] NRG Serum or plasma troponin i.cardiac measu [...] 8.5-10.1 Manual absolute plasma cell count - 12/01/18 04:45 Blood monocytes/100 leukocytes 5 % NRG [...] plasma alkaline phosphatase deana surement (enzymatic activity/volume) 67 U/L 40-136 Serum [...] Staphylococcus aureus (MRSA) scr eening culture NEG NRG Automated blood complete blood count (he mogram) [...] mg/dL 8.5-10.1 Automated blood complete blood count (he mogram) panel - 04/09/20 04:05 Blood leukocytes [...] plasma calcium measurement (mass/volume) 8.3 mg/dL 8.5-10.1 Complete blood count (CBC) with automate d white blood cell (WBC) differential - 04/15/20 15:12 Blood leukocytes automated count (number/volume) 13.1 10*3/uL 4.3-11.0 Blood erythrocytes automated count (number/volume) 3.38 10*6/uL 4.35-5.85 Venous blood hemoglobin measurement (mass/volume) 9.4 g/dL 13.3-17.7 Blood hematocrit (volume fraction) 31 % 40-54 Automated erythrocyte mean corpuscular volume 91 [ foz_us] 80-99 Automated erythrocyte mean corpuscular h emoglobin (mass per erythrocyte) 28 pg 25-34 Automated erythrocyte mean corpuscular h emoglobin concentration measurement (mass/volume) 31 g/dL 32-36 Automated erythrocyte distribution width ratio 17. 2 % 10.0- 14.5 Automated blood platelet count (count/volume) 235 10*3/uL 130-400 Automated blood platelet mean volume measurement 11.8 [foz_us] 7.4-10.4 Automated blood neutrophils/100 leukocytes 79 % 42-75 Automated blood lymphocytes/100 leukocytes 8 % 12-44 Blood monocytes/100 leukocytes 11 % 0-12 Automated blood eosinophils/100 leukocytes 2 % 0-10 Automated blood basophils/100 leukocytes 0 % 0-10 Blood neutrophils automated count (number/volume) 10.3 10*3 1.8-7.8 Blood lymphocytes automated count (number/volume) 1.1 10*3 1.0-4.0 Blood monocytes automated count (number/volume) 1. 4 10*3 0.0-1.0 Automated eosinophil count 0.3 10*3/uL 0 .0-0.3 Automated blood basophil count (count/volume) 0.0 10*3/uL 0.0-0.1 Comprehensive metabolic panel - 04/15/20 15:12 Serum or plasma sodium measurement (moles/volume) 138 mmol/L 135-145 Serum or plasma potassium measurement (moles/volume) 5.1 mmol/L 3.6-5.0 Serum or plasma chloride measurement (moles/volume) 100 mmol/L 98-107 Carbon dioxide 26 mmol/L 21-32 Serum or plasma anion gap determination (moles/volume) 12 mmol/L 5-14 Serum or plasma urea nitrogen measurement (mass/volume ) 29 mg/dL 7-18 Serum or plasma creatinine measurement (mass/volume) 1.61 mg/dL 0.60-1.30 Serum or plasma urea nitrogen/creatinine mass ratio 18 NRG Serum or plasma creatinine measurement w ith calculation of estimated glomerular filtration rate 42 NRG Serum or plasma glucose measurement (mass/volume) 95 mg/dL 70-105 Serum or plasma calcium measurement (mass/volume) 8.1 mg/dL 8.5-10.1 Serum or plasma total bilirubin measurement (mass/volu me) 0.5 mg/dL 0.1-1.0 Serum or plasma alkaline phosphatase deana surement (enzymatic activity/volume) 67 U/L 40-136 Serum or plasma aspartate aminotransfera se measurement (enzymatic activity/volume) 20 U/L 5-34 Serum or plasma alanine aminotransferase measurement (enzymatic activity/volume) 19 U/L 0-55 Serum or plasma protein measurement (mass/volume) 6.6 g/dL 6.4-8.2 Serum or plasma albumin measurement (mass/volume) 3.6 g/dL 3.2-4.5 CALCIUM CORRECTED 8.4 mg/dL 8.5-10.1 Complete urinalysis with reflex to cultu re - 04/15/20 15:12 Urine color determination YELLOW NRG Urine clarity determination CLEAR NR G Urine pH measurement by test strip 7.0 5-9 Specific gravity of urine by test [...] urinalysis with reflex to culture NO NRG Magnesium - 04/15/20 15:12 Magnesium 2.8 mg/dL 1.6-2.4 Serum or plasma troponin i.cardiac measu rement (mass/volume) - 04/15/20 15:12 Serum or plasma troponin i.cardiac measurement (mass/v olume) 0.038 ng/mL <0.028 Serum or plasma lithium measurement (mol es/volume) - 04/15/20 15:12 BNP PT 780.3 pg/mL <100.0 PROCALCITONIN (PCT) - 04/15/20 15:12 PROCALCITONIN (PCT) 0.08 ng/mL <0.10 Blood lactic acid measurement (moles/vol ume) - 04/15/20 17:01 Blood lactic acid measurement (moles/volume) 1.12 mmol/L 0.50-2.00 Bacterial blood culture - 04/15/20 17:01 Bacterial blood culture NG NRG Bacterial blood culture - 04/15/20 17:09 Bacterial blood culture NG NRG Complete blood count (CBC) with automate d white blood cell (WBC) differential - 04/16/20 04:31 Blood leukocytes automated count (number/volume) 10.8 10*3/uL 4.3-11.0 Blood erythrocytes automated count (number/volume) 3.13 10*6/uL 4.35-5.85 Venous blood hemoglobin measurement (mass/volume) 8.6 g/dL 13.3-17.7 Blood hematocrit (volume fraction) 28 % 40-54 Automated erythrocyte mean corpuscular volume 90 [ foz_us] 80-99 Automated erythrocyte mean corpuscular h emoglobin (mass per erythrocyte) 27 pg 25-34 Automated erythrocyte mean corpuscular h emoglobin concentration measurement (mass/volume) 31 g/dL 32-36 Automated erythrocyte distribution width ratio 17. 2 % 10.0- 14.5 Automated blood platelet count (count/volume) 210 10*3/uL 130-400 Automated blood platelet mean volume measurement 11.8 [foz_us] 7.4-10.4 Automated blood neutrophils/100 leukocytes 80 % 42-75 Automated blood lymphocytes/100 leukocytes 8 % 12-44 Blood monocytes/100 leukocytes 10 % 0-12 Automated blood eosinophils/100 leukocytes 3 % 0-10 Automated blood basophils/100 leukocytes 0 % 0-10 Blood neutrophils automated count (number/volume) 8.6 10*3 1.8-7.8 Blood lymphocytes automated count (number/volume) 0.9 10*3 1.0-4.0 Blood monocytes automated count (number/volume) 1. 0 10*3 0.0-1.0 Automated eosinophil count 0.3 10*3/uL 0 .0-0.3 Automated blood basophil count (count/volume) 0.0 10*3/uL 0.0-0.1 Whole blood basic metabolic panel - 03/30 07/19 04:31 Serum or plasma sodium measurement (moles/volume) 138 mmol/L 135-145 Serum or plasma potassium measurement (moles/volume) 4.7 mmol/L 3.6-5.0 Serum or plasma chloride measurement (moles/volume) 101 mmol/L 98-107 Carbon dioxide 25 mmol/L 21-32 Serum or plasma anion gap determination (moles/volume) 12 mmol/L 5-14 Serum or plasma urea nitrogen measurement (mass/volume ) 25 mg/dL 7-18 Serum or plasma creatinine measurement (mass/volume) 1.47 mg/dL 0.60-1.30 Serum or plasma urea nitrogen/creatinine mass ratio 17 NRG Serum or plasma creatinine measurement w ith calculation of estimated glomerular filtration rate 47 NRG Serum or plasma glucose measurement (mass/volume) 87 mg/dL 70-105 Serum or plasma calcium measurement (mass/volume) 8.2 mg/dL 8.5-10.1 Whole blood basic metabolic panel - 03/30 08/19 12:45 Serum or plasma sodium measurement (moles/volume) 138 mmol/L 135-145 Serum or plasma potassium measurement (moles/volume) 3.9 mmol/L 3.6-5.0 Serum or plasma chloride measurement (moles/volume) 98 mmol/L 98-107 Carbon dioxide 28 mmol/L 21-32 Serum or plasma anion gap determination (moles/volume) 12 mmol/L 5-14 Serum or plasma urea nitrogen measurement (mass/volume ) 24 mg/dL 7-18 Serum or plasma creatinine measurement (mass/volume) 1.54 mg/dL 0.60-1.30 Serum or plasma urea nitrogen/creatinine mass ratio 16 NRG Serum or plasma creatinine measurement w ith calculation of estimated glomerular filtration rate 45 NRG Serum or plasma glucose measurement (mass/volume) 103 mg/dL 70-105 Serum or plasma calcium measurement (mass/volume) 8.5 mg/dL 8.5-10.1 [facility] - 04/18/20 04:28 Blood leukocytes automated count (number/volume) 8.1 10*3/uL 4.3-11.0 Blood erythrocytes automated count (number/volume) 3.08 10*6/uL 4.35-5.85 Venous blood hemoglobin measurement (mass/volume) 8.4 g/dL 13.3-17.7 Blood hematocrit (volume fraction) 28 % 40-54 Automated erythrocyte mean corpuscular volume 90 [ foz_us] 80-99 Automated erythrocyte mean corpuscular h emoglobin (mass per erythrocyte) 27 pg 25-34 Automated erythrocyte mean corpuscular h emoglobin concentration measurement (mass/volume) 30 g/dL 32-36 Automated erythrocyte distribution width ratio 17. 3 % 10.0- 14.5 Automated blood platelet count (count/volume) 190 10*3/uL 130-400 Automated blood platelet mean volume measurement 11.2 [foz_us] 7.4-10.4 Whole blood basic metabolic panel - 03/31 04:28 Serum or plasma sodium measurement (moles/volume) 140 mmol/L 135-145 Serum or plasma potassium measurement (moles/volume) 4.2 mmol/L 3.6-5.0 Serum or plasma chloride measurement (moles/volume) 100 mmol/L 98-107 Carbon dioxide 30 mmol/L 21-32 Serum or plasma anion gap determination (moles/volume) 10 mmol/L 5-14 Serum or plasma urea nitrogen measurement (mass/volume ) 22 mg/dL 7-18 Serum or plasma creatinine measurement (mass/volume) 1.45 mg/dL 0.60-1.30 Serum or plasma urea nitrogen/creatinine mass ratio 15 NRG Serum or plasma creatinine measurement w ith calculation of estimated glomerular filtration rate 48 NRG Serum or plasma glucose measurement (mass/volume) 87 mg/dL 70-105 Serum or plasma calcium measurement (mass/volume) 8.3 mg/dL 8.5-10.1 Automated blood complete blood count (he mogram) panel - 04/19/20 05:38 Blood leukocytes automated count (number/volume) 7.7 10*3/uL 4.3-11.0 Blood erythrocytes automated count (number/volume) 3.11 10*6/uL 4.35-5.85 Venous blood hemoglobin measurement (mass/volume) 8.5 g/dL 13.3-17.7 Blood hematocrit (volume fraction) 28 % 40-54 Automated erythrocyte mean corpuscular volume 90 [ foz_us] 80-99 Automated erythrocyte mean corpuscular h emoglobin (mass per erythrocyte) 27 pg 25-34 Automated erythrocyte mean corpuscular h emoglobin concentration measurement (mass/volume) 30 g/dL 32-36 Automated erythrocyte distribution width ratio 17. 4 % 10.0- 14.5 Automated blood platelet count (count/volume) 201 10*3/uL 130-400 Automated blood platelet mean volume measurement 11.1 [foz_us] 7.4-10.4 Whole blood basic metabolic panel - 03/31 12/19 05:38 Serum or plasma sodium measurement (moles/volume) 140 mmol/L 135-145 Serum or plasma potassium measurement (moles/volume) 3.8 mmol/L 3.6-5.0 Serum or plasma chloride measurement (moles/volume) 100 mmol/L 98-107 Carbon dioxide 28 mmol/L 21-32 Serum or plasma anion gap determination (moles/volume) 12 mmol/L 5-14 Serum or plasma urea nitrogen measurement (mass/volume ) 20 mg/dL 7-18 Serum or plasma creatinine measurement (mass/volume) 1.36 mg/dL 0.60-1.30 Serum or plasma urea nitrogen/creatinine mass ratio 15 NRG Serum or plasma creatinine measurement w ith calculation of estimated glomerular filtration rate 52 NRG Serum or plasma glucose measurement (mass/volume) 87 mg/dL 70-105 Serum or plasma calcium measurement (mass/volume) 8.5 mg/dL 8.5-10.1 Serum or plasma troponin i.cardiac measu rement (mass/volume) - 04/19/20 05:38 Serum or plasma troponin i.cardiac measurement (mass/v olume) 0.057 ng/mL <0.028 Serum or plasma lithium measurement (mol es/volume) - 04/19/20 05:38 BNP PT 470.1 pg/mL <100.0 Automated blood complete blood count (he mogram) panel - 04/20/20 05:24 Blood leukocytes automated count (number/volume) 7.1 10*3/uL 4.3-11.0 Blood erythrocytes automated count (number/volume) 3.10 10*6/uL 4.35-5.85 Venous blood hemoglobin measurement (mass/volume) 8.6 g/dL 13.3-17.7 Blood hematocrit (volume fraction) 28 % 40-54 Automated erythrocyte mean corpuscular volume 90 [ foz_us] 80-99 Automated erythrocyte mean corpuscular h emoglobin (mass per erythrocyte) 28 pg 25-34 Automated erythrocyte mean corpuscular h emoglobin concentration measurement (mass/volume) 31 g/dL 32-36 Automated erythrocyte distribution width ratio 17. 1 % 10.0- 14.5 Automated blood platelet count (count/volume) 180 10*3/uL 130-400 Automated blood platelet mean volume measurement 9.5 [foz_us] 7.4-10.4 Whole blood basic metabolic panel - 05/2 2/20 05:24 Serum or plasma sodium measurement (moles/volume) 140 mmol/L 135-145 Serum or plasma potassium measurement (moles/volume) 4.0 mmol/L 3.6-5.0 Serum or plasma chloride measurement (moles/volume) 102 mmol/L 98-107 Carbon dioxide 29 mmol/L 21-32 Serum or plasma anion gap determination (moles/volume) 9 mmol/L 5-14 Serum or plasma urea nitrogen measurement (mass/volume ) 24 mg/dL 7-18 Serum or plasma creatinine measurement (mass/volume) 1.33 mg/dL 0.60-1.30 Serum or plasma urea nitrogen/creatinine mass ratio 18 NRG Serum or plasma creatinine measurement w ith calculation of estimated glomerular filtration rate 53 NRG Serum or plasma glucose measurement (mass/volume) 91 mg/dL 70-105 Serum or plasma calcium measurement (mass/volume) 8.3 mg/dL 8.5-10.1 Ethanol - 05/08/20 14:10 Ethanol <10 mg/dL 20-80 Encounters ACCT No. Visit Date/Time Discharge Status Pt. Type Provider Facility Loc./Unit Complaint [id number] 05/08/2020 14:59:00 05/08/2020 23:59 :00 DIS Outpatient Wilfredo Blair [id number] 04/15/2020 16:09:00 14:33:00 DIS Outpatient DEMARIO TO MD [facility] 4TH PNEUMONIA, CHF [id number] 04/06/2020 15:51:00 13:24:00 DIS Inpatient PATRICIA REID MD [facility] 4TH ACUTE COPD,ACUTE HF,BHAVIK VATED TROPONIN [id number] 03/01/2020 15:14:00 23:59:59 CLS Outpatient MICHAEL TAYLOR APRN [facility] RAD RT KNEE PAIN [id number] 11/09/2019 10:31:00 00:01:00 DIS Outpatient PATRICIA REID MD [facility] PULM COPD [id number] 02/02/2020 11:26:00 23:59:59 CLS Outpatient OSCAR KELLER ACCESS SERVICE REPRESENTATIVE [facility] RAD HYPOXEMIA [id number] 12/02/2019 12:35:00 23:59:59 CLS Outpatient OSCAR KELLER ACCESS SERVICE REPRESENTATIVE [facility] RAD COPD,EXCESSIVE SLEEPINESS,EMPHYSEMA [id number] 11/03/2019 07:55:00 09:45:00 DIS Outpatient Marta HERNANDEZ MD [facility] CATH PAF [id number] 11/02/2019 09:30:00 23:59:59 CLS Preadmit OSCAR KELLER ACCESS SERVICE REPRESENTATIVE [facility] PULM DYSPNEA,EXCESSI VE SLEEPINESS,COPD [id number] 10/30/2019 07:12:00 14:10:00 DIS Inpatient MARGARITA EDGAR, ISAI Mahoney [facility] 4TH ACUTE RESP FAILURE WITH HYPOXIA,COPD EXACERBATION [id number] 08/03/2019 09:36:00 00:01:00 DIS Outpatient OSCAR KELLER ACCESS SERVICE REPRESENTATIVE [facility] PULM DYSPNEA,EXCESSI VE SLEEPINESS,COPD [id number] 10/04/2019 10:42:00 15:50:00 DIS Inpatient FRANKLIN EDGAR, PATRICIA Lozano [facility] 4TH CHF EXACERBATION;COPD;C HEST PAIN [id number] 09/09/2019 13:43:00 23:59:59 CLS Preadmit [employer] KELL[employer] ACCESS SERVICE REPRESENTATIVE [facility] RAD COPD [id number] 08/23/2019 19:43:00 06:10:00 DIS Outpatient OSCAR KELLER ACCESS SERVICE REPRESENTATIVE [facility] SLEEP DYSPNEA,EXCESSI VE SLEEPINESS [id number] 08/22/2019 09:01:00 23:59:59 CLS Outpatient OSCAR KELLER ACCESS SERVICE REPRESENTATIVE [facility] RAD DYSPNEA,EXCESSI VE SLEEPINESS [id number] 08/18/2019 07:39:00 23:59:59 CLS Outpatient Marta HERNANDEZ MD [facility] CARD CHEST PAIN [id number] 08/15/2019 13:48:00 14:17:00 DIS Inpatient ISAI AVILA MD [facility] ICU CHF, ATRIAL FIB, COPD [id number] 07/06/2019 00:12:00 23:59:59 CLS Preadmit Marta HERNANDEZ MD [facility] CARD DIZZINESS [id number] 04/06/2019 13:36:00 00:01:00 DIS Outpatient Marta HERNANDEZ MD [facility] CARD DIZZINESS [id number] 06/12/2019 07:30:00 17:08:00 DIS Inpatient BENJAMIN MOSER MD [facility] 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 [id number] 04/06/2019 13:30:00 23:59:59 CLS Outpatient Marta HERNANDEZ MD [facility] CARD DIZZINESS [id number] 03/30/2019 10:34:00 23:59:59 CLS Preadmit Marta HERNANDEZ MD [facility] CARD DIZZINESS,NEAR SYNCOPE [id number] 05/14/2018 08:55:00 23:59:59 CLS Outpatient BOBBY HSIEH APRN [facility] RAD R06.00 [id number] 07/11/2016 09:21:00 13:40:00 DIS Outpatient RUSTAM COSME DO [facility] SDC SCREENING [id number] 07/09/2016 05:44:00 016 11:21:00 DIS Outpatient RUSTAM COSME DO [facility] PREOP SCREENING [id number] 10/31/2015 11:16:00 11:37:00 DIS Outpatient OSCAR KELLER APRN [facility] SLEEP SNORING, UMESH Baker IN SLEEP, EDS, HPN [id number] 08/24/2015 12:48:00 015 23:59:59 CLS Outpatient OSCAR KELLER APRN [facility] RT COPD [id number] 08/24/2015 12:47:00 Document Registration [id number] 08/24/2015 12:47:00 Document Registration [id number] 08/24/2015 12:47:00 Document Registration [id number] 10/30/2011 12:45:00 Document Registration [id number] 10/27/2011 13:30:00 Document Registration [id number] 05/15/2011 12:43:00 Document Registration [id number] 04/17/2011 15:28:00 Document Registration
[2020-05-10 09:18] LABS: BASOPHILS % (AUTO) 0 % (0-10); EOSINOPHILS % (AUTO) 0 % (0-10); HEMATOCRIT 32 % (40-54); HEMOGLOBIN 10.4 G/DL (13.3-17.7); LYMPHOCYTES # (AUTO) 0.2 X 10^3 (1.0-4.0); LYMPHOCYTES % (AUTO) 5 % (12-44); MEAN CORPUSCULAR HEMOGLOBIN 28 PG (25-34); MEAN CORPUSCULAR HGB CONC 33 G/DL (32-36); MEAN CORPUSCULAR VOLUME 85 FL (80-99); MEAN PLATELET VOLUME 11.3 FL (7.4-10.4); MONOCYTES # (AUTO) 0.1 X 10^3 (0.0-1.0); MONOCYTES % (AUTO) 3 % (0-12); NEUTROPHILS # (AUTO) 3.9 X 10^3 (1.8-7.8); NEUTROPHILS % (AUTO) 92 % (42-75); PLATELET COUNT 238 10^3/uL (130-400); RED CELL DISTRIBUTION WIDTH 17.3 % (10.0-14.5); WHITE BLOOD COUNT 4.3 10^3/uL (4.3-11.0)
[2020-05-10 09:24] LABS: CALCIUM 8.7 MG/DL (8.5-10.1)
[2020-05-10 09:25] LABS: TOTAL PROTEIN 7.1 GM/DL (6.4-8.2)
[2020-05-10 09:27] LABS: BILIRUBIN,TOTAL 0.5 MG/DL (0.1-1.0)
[2020-05-10 09:29] LABS: CREATININE SERUM 2.21 MG/DL (0.60-1.30); POTASSIUM 4.9 MMOL/L (3.6-5.0)
[2020-05-10 09:54] LABS: ANISOCYTOSIS MODERATE; BAND NEUTROPHILS 0 %; BASOPHILS % (MANUAL) 0 %; EOSINOPHILS % (MANUAL) 0 %; LYMPHOCYTES % (MANUAL) 1 %; MONOCYTES % (MANUAL) 3 %; NEUTROPHILS % (MANUAL) 96 %
--- NOTE | 2020-05-10 10:01 | Diagnostic Imaging Report ---
EXAMINATION: Portable erect AP chest at 9:34 AM INDICATION: Shortness of breath The appearance of the chest has improved since the prior exam of 04/15/2020 as the heart has decreased in size and the pulmonary congestion noted on the prior exam has essentially resolved. Both lung bases also appear better aerated. The mediastinum is not widened. The osseous structures are intact. IMPRESSION: There is no evidence for an acute cardiopulmonary abnormality. Dictated by: Dictated on workstation # [id number]
--- NOTE | 2020-05-10 10:26 | ED Respiratory ---
General Chief Complaint: Respiratory Problems Stated Complaint: SOA Source: patient Exam Limitations: no limitations History of Present Illness Date Seen by Provider: May 10, 2020 Time Seen by Provider: 08:40 Initial Comments This 74-year-old gentleman presents to the emergency room via EMS for reasons of shortness of breath. He denies any fever, new cough, or chest pain. He does have history of coronary artery disease. He had a stress test last month demon strating normal LV function and no ischemia. He also had a heart catheter in September of last year showing moderate disease of the proximal LAD with FFR of 0.85. PCI was deferred. EMS reports patient was wheezy at home. DuoNeb was administered in route and resolved his wheezing. Oxygen saturation is in the upper 90s on room air. Patient normally wears oxygen at 2 L at home. He was bumped up to 5 L due to the shortness of breath. Patient felt chilled and shaky. He had no known COVID 19 exposures or risk factors. He is afebrile. Allergies and Home Medications Allergies Coded Allergies: Sulfa (Sulfonamide Antibiotics) (Verified Allergy, Unknown, 10/04/19) Home Medications Acetaminophen 650 Mg Tablet.er, 650-1,300 MG PO Q8H PRN for PAIN-MILD (1-4), (Reported) Albuterol Sulfate 8.5 Gm Hfa.aer.ad, 1-2 PUFF IH Q4H PRN for WHEEZING, (Reported) Albuterol Sulfate 2.5 Mg/0.5 Ml Vial.neb, 2.5 MG NEB Q4H PRN for SHORTNESS OF BREATH, (Reported) Amiodarone HCl 200 Mg Tablet, 200 MG PO BID, (Reported) Amlodipine Besylate 5 Mg Tablet, 5 MG PO DAILY, (Reported) Apixaban 5 Mg Tablet, 5 MG PO BID, (Reported) Bisacodyl 5 Mg Tablet.dr, 5 MG PO DAILY PRN for CONSTIPATION-4TH LINE, (Reported) Buspirone HCl 5 Mg Tablet, 5 MG PO TID PRN for ANXIETY, (Reported) Cefdinir 300 Mg Capsule, 300 MG PO BID Prescribed by: PATRICIA REID on 04/19/20 1002 Diltiazem HCl 120 Mg Cap.er.24h, 120 MG PO DAILY, (Reported) Enalapril Maleate 20 Mg Tablet, 20 MG PO DAILY, (Reported) Fluticasone Propion/Salmeterol 1 Each Blst.w.dev, 1 PUFF IN BID, (Reported) Furosemide 80 Mg Tablet, 80 MG PO DAILY, (Reported) Metolazone 5 Mg Tablet, 5 MG PO DAILY Prescribed by: PATRICIA REID on 04/19/20 1002 Metoprolol Tartrate 100 Mg Tablet, 100 MG PO BID, (Reported) Potassium Chloride 10 Meq Tablet.er, 10 MEQ PO DAILY, (Reported) Prednisone 20 Mg Tab, 40 MG PO DAILY Prescribed by: EMILIANA DUGGAN on 05/10/20 1211 Patient Home Medication List Home Medication List Reviewed: Yes Review of Systems Review of Systems Constitutional: no symptoms reported EENTM: no symptoms reported Respiratory: see HPI Cardiovascular: no symptoms reported Gastrointestinal: no symptoms reported Genitourinary: no symptoms reported Musculoskeletal: no symptoms reported Skin: no symptoms reported Psychiatric/Neurological: No Symptoms Reported Hematologic/Lymphatic: No Symptoms Reported Immunological/Allergic: no symptoms reported Past Pkhjvlo-Agzmro-Ididdc Hx Past Med/Social Hx: Reviewed Nursing Past Med/Soc Hx Patient Social History Alcohol Beverage of Choice: Beer Drug of Choice: THC ON A REGULAR BASIS, SINCE THE Type Used: Cigarettes Former Smoker, Quit: Jan 13, 2009 2nd Hand Smoke Exposure: No Recent Hopitalizations: Yes (08/2019) Immunizations Up To Date Tetanus Booster (TDap): Unknown PED Vaccines UTD: No Date of Pneumonia Vaccine: Aug 30, 2019 Date of Influenza Vaccine: Aug 30, 2019 Seasonal Allergies Seasonal Allergies: Yes Past Medical History Surgeries: Yes (left knee replaced x2, right TKR, shoulder sx) Appendectomy, Cardiac, Orthopedic Respiratory: Yes COPD Currently Using CPAP: No Currently Using BIPAP: No Cardiac: Yes Atrial Fibrillation, Chronic Edema/Swelling, Hypertension, Palpitations, Valvular Heart Disease Neurological: No Reproductive Disorders: No Genitourinary: No Gastrointestinal: No Musculoskeletal: Yes (BILATERAL KNEE SURGERIES, RIGHT SHOULDER SURGERIES) Arthritis Endocrine: No HEENT: No Cancer: No Psychosocial: Yes Anxiety Integumentary: No Blood Disorders: No Adverse Reaction/Blood Tranf: No Family Medical History Reviewed Nursing Family Hx Asbestosis FH: CABG (coronary artery bypass surgery) 19 FATHER FH: breast cancer 19 MOTHER FH: uterine cancer 19 MOTHER Hypertension 19 FATHER Heart Disease, Cancer, Hypertension Physical Exam Vital Signs - First Documented 05/10/20 05/10/20 08:42 12:25 Temp 37.1 Pulse 70 Resp 22 B/P (MAP) 142/71 (94) Pulse Ox 96 O2 Delivery Room Air Capillary Refill : Height: 5'9.00" Weight: 215lbs. 0.0oz. 97.040095gn; 35.85 BMI Method:Stated General Appearance: WD/WN, no apparent distress HEENT: PERRL/EOMI, normal ENT inspection, pharynx normal Neck: normal inspection, other (no JVD) Respiratory: lungs clear, normal breath sounds, no respiratory distress, no accessory muscle use, other (bowel chested) Cardiovascular: regular rate, rhythm, no edema, no murmur Gastrointestinal: normal bowel sounds, non tender, soft Extremities: non-tender, normal inspection, no pedal edema Neurologic/Psychiatric: photographic editor II-XII nml as tested, no motor/sensory deficits, alert, normal mood/affect, oriented x 3 Skin: normal color, warm/dry Progress/Results/Core Measures Suspected Sepsis SIRS Temperature: Pulse: Respiratory Rate: Laboratory Tests 05/10/20 08:55: White Blood Count 4.3 Blood Pressure / Mean: Laboratory Tests 05/10/20 08:55: Creatinine 2.21H, Platelet Count 238, Total Bilirubin 0.5 Results/Orders Lab Results Laboratory Tests Test 05/10/20 08:45 05/10/20 08:55 05/10/20 11:00 Range/Units White Blood Count 4.3 4.3-11.0 10^3/uL Red Blood Count 3.76 L 4.35-5.85 10^6/uL Hemoglobin 10.4 L 13.3-17.7 G/DL Hematocrit 32 L 40-54 % Mean Corpuscular Volume 85 80-99 FL Mean Corpuscular Hemoglobin 28 25-34 PG Mean Corpuscular Hemoglobin Concent 33 32-36 G/DL Red Cell Distribution Width 17.3 H 10.0-14.5 % Platelet Count 238 130-400 10^3/uL Mean Platelet Volume 11.3 H 7.4-10.4 FL Neutrophils (%) (Auto) 92 H 42-75 % Lymphocytes (%) (Auto) 5 L 12-44 % Monocytes (%) (Auto) 3 0-12 % Eosinophils (%) (Auto) 0 0-10 % Basophils (%) (Auto) 0 0-10 % Neutrophils # (Auto) 3.9 1.8-7.8 X 10^3 Lymphocytes # (Auto) 0.2 L 1.0-4.0 X 10^3 Monocytes # (Auto) 0.1 0.0-1.0 X 10^3 Eosinophils # (Auto) 0.0 0.0-0.3 10^3/uL Basophils # (Auto) 0.0 0.0-0.1 10^3/uL Neutrophils % (Manual) 96 % Lymphocytes % (Manual) 1 % Monocytes % (Manual) 3 % Eosinophils % (Manual) 0 % Basophils % (Manual) 0 % Band Neutrophils 0 % Anisocytosis MODERATE Sodium Level 128 L 135-145 MMOL/L Potassium Level 4.9 3.6-5.0 MMOL/L Chloride Level 92 L 98-107 MMOL/L Carbon Dioxide Level 22 21-32 MMOL/L Anion Gap 14 5-14 MMOL/L Blood Urea Nitrogen 40 H 7-18 MG/DL Creatinine 2.21 H 0.60-1.30 MG/DL Estimat Glomerular Filtration Rate 29 BUN/Creatinine Ratio 18 Glucose Level 99 70-105 MG/DL Calcium Level 8.7 8.5-10.1 MG/DL Corrected Calcium 8.7 8.5-10.1 MG/DL Total Bilirubin 0.5 0.1-1.0 MG/DL Aspartate Amino Transf (AST/SGOT) 24 5-34 U/L Alanine Aminotransferase (ALT/SGPT) 21 0-55 U/L Alkaline Phosphatase 59 40-136 U/L Troponin I 0.055 H 0.054 H <0.028 NG/ML C-Reactive Protein High Sensitivity 0.30 0.00-0.50 MG/DL B-Type Natriuretic Peptide 349.6 H <100.0 PG/ML Total Protein 7.1 6.4-8.2 GM/DL Albumin 4.0 3.2-4.5 GM/DL Procalcitonin 0.07 <0.10 NG/ML Micro Results Microbiology 05/10/20 Influenza Types A,B Antigen (ANOOP) - Final, Complete My Orders Orders - EMILIANA FLOREZ MD BNP (05/10/20 09:01) Cbc With Automated Diff (05/10/20 09:) Comprehensive Metabolic Panel (05/10/20 09:01) Hs C Reactive Protein (05/10/20 09:01) Troponin I (05/10/20 09:) Ed Iv/Invasive Line Start (05/10/20 09:01) Ekg Tracing (05/10/20 09:01) O2 (05/10/20 09:) Monitor-Rhythm Ecg Trace Only (05/10/20:) Procalcitonin (Pct) (05/10/20:) Chest 1 View, Ap/Pa Only (05/10/20:) Influenza A And B Antigens (05/10/20 09:) Coronavirus Sars-Cov-2 So 2018 (05/10/20 09:) Manual Differential (05/10/20 08:55) Troponin I (05/10/20 11:00) Ns Iv 500 Ml (Sodium Chloride 0.9%) (05/10/20 11:00) Medications Given in ED Current Medications Medications Dose Ordered Sig/Christi Route Start Time Stop Time Status Last Admin Dose Admin Sodium Chloride 500 ml @ 0 mls/hr Q0M ONCE IV 05/10/20 11:00 05/10/20 11:01 DC 05/10/20 11:07 0 MLS/HR Vital Signs/I&O 05/10/20 05/10/20 08:42 12:25 Temp 37.1 36.9 Pulse 70 72 Resp 22 18 B/P (MAP) 142/71 (94) 143/68 (94) Pulse Ox 96 O2 Delivery Room Air Room Air Capillary Refill : Progress Note #1: Time: 11:03 Progress Note Initial workup showed a few abnormalities. He has mild hyponatremia and creatinine is slightly higher than usual. He will be given a 500 mL normal saline bolus to address these issues. Troponin was slightly elevated which is a chronic condition. We will check a 2 hour troponin to ensure has not changed. Patient still reports feeling short of air. However, he is moving air well without wheezing at this time and his oxygen saturation is 98 percent on 2 L by nasal cannula. Patient's oxygen saturation was in the upper 90s even before nasal cannula was applied after he was transitioned to the ER bed from the EMS cot. I did discuss the case with Dr. Molina who advised his elevated troponin is chronic and it does not require admission if it is stable and he is otherwise stable. Patient's temperature was checked again and he has afebrile still. Progress Note #2: Progress Note Repeat troponin was unchanged. Patient remained stable and was discharged home. ECG Initial ECG Impression Date: May 10, 2020 Initial ECG Impression Time: 08:43 Initial ECG Rate: 69 Initial ECG Rhythm: Normal Sinus Comment Sinus rhythm with no ST elevation or depression. Right bundle branch block. Prolonged MN interval 356. Diagnostic Imaging Diagonstic Imaging: Xray Plain Films/CT/US/NM/MRI: chest Comments Chest x-ray viewed by me and report reviewed. See report below: NAME: VALDO KRUGER [facility] REC#: [id number] PT STATUS: REG ER : 1945 PHYSICIAN: EMILIANA FLOREZ MD ADMIT DATE: 05/10/20/ER Draft Date of Exam:05/10/20 CHEST 1 VIEW, AP/PA ONLY EXAMINATION: Portable erect AP chest at 9:34 AM INDICATION: Shortness of breath The appearance of the chest has improved since the prior exam of 04/15/2020 as the heart has decreased in size and the pulmonary congestion noted on the prior exam has essentially resolved. Both lung bases also appear better aerated. The mediastinum is not widened. The osseous structures are intact. IMPRESSION: There is no evidence for an acute cardiopulmonary abnormality. Dictated on workstation # [id number] Dict: 05/10/20 0958 Trans: 05/10/20 1001 OMKAR [id number] Interpreted by: SAHIL GUIDRY MD Departure Impression Primary Impression: COPD exacerbation Additional Impressions: Tremor Dyspnea Qualified Codes: R06.02 - Shortness of breath Disposition: 01 HOME, SELF-CARE Condition: Improved Departure-Patient Inst. Decision time for Depature: 12:09 Referrals: GEM YEPEZ MD (PCP/Family) Primary Care Physician Patient Instructions: Chronic Obstructive Pulmonary Disease (COPD), Including Emphysema, Coronavirus Disease 2019 (COVID-19) Add. Discharge Instructions: You may use your nebulizer treatments up to every 4 hours as needed for shortness of air and wheezing. Avoid inhaled irritants such as dust and smoke. If needed, start the steroids (prednisone) as prescribed. Drink plenty of clear liquids to stay well-hydrated. Contact your primary care provider for follow-up. You were tested for alfred virus (COVID-19). You need to isolate at home and not interact with others until the results of your tests are known. Return to care if you have worsening symptoms. All discharge instructions reviewed with patient and/or family. Voiced understanding. Scripts Prednisone (Prednisone) 20 Mg Tab 40 MG PO DAILY, #8 TAB 0 Refills Prov: EMILIANA FLOREZ MD 05/10/20 Copy Copies To 1: GEM YEPEZ MD Copies To 2: Marta MOLINA MD, JOSHUA T MD May 10, 2020 10:26
[2020-05-10] MEDS ORDERED: NS IV 500 ML 500 ML IV ONE (11:00)
[2020-05-10] MEDS ORDERED: PRD20T PO (12:11)
[2020-05-10 12:25] VITALS: BP 143/68
== END 2020-05-10 12:30 | disposition home or self-care (01) ==
LOC: EDUNIT# 08:38 → ER 08:40
DX: J44.1 Chronic obstructive pulmonary disease with (acute) exacerbation (principal); R25.1 Tremor, unspecified; I10 Essential (primary) hypertension; I48.91 Unspecified atrial fibrillation; F41.9 Anxiety disorder, unspecified; Z88.2 Allergy status to sulfonamides; Z79.02 Long term (current) use of antithrombotics/antiplatelets; Z79.51 Long term (current) use of inhaled steroids; Z95.9 Presence of cardiac and vascular implant and graft, unspecified; Z99.81 Dependence on supplemental oxygen; Z87.891 Personal history of nicotine dependence; Z82.49 Family history of ischemic heart disease and other diseases of the circulatory system; Z80.3 Family history of malignant neoplasm of breast; Z80.49 Family history of malignant neoplasm of other genital organs; Z96.653 Presence of artificial knee joint, bilateral; Z20.828 Contact with and (suspected) exposure to other viral communicable diseases
CPT/HCPCS: 36415; 71045; 80053; 83880; 84145; 84484; 85007; 85027; 86141; 87635; 87804; 93005; 93041

== ENCOUNTER → 2020-09-05 | Outpatient (CLI) | payer MEDICARE ==
[~2020-09-05] MED LIST changes: -ENAL20TA PO; +ENAL20TA16 PO
--- NOTE | 2020-09-05 14:23 | Diagnostic Imaging Report ---
PROCEDURE: US Renal Bilateral. TECHNIQUE: Multiple Real-time grayscale images were obtained over the kidneys in various projections bilaterally. INDICATION: Left renal cyst. FINDINGS: The right kidney measures 10.9 x 6.2 x 6.0 cm and the left kidney measures 11.4 x 4.2 x 5.4 cm. The cortical thickness and echogenicity are normal. No calculi are seen. There is no hydronephrosis. There is a large simple cyst in the upper pole of the left kidney measuring 5.3 x 5.0 x 4.8 cm. The bladder is unremarkable. Ureteral jets were not visualized. IMPRESSION: 1. Left renal cyst. 2. No evidence of calculi or hydronephrosis. Dictated by: Dictated on workstation # [id number]
== END ==
LOC: RAD 12:30
PROVIDERS: ATTEND Physician Assistant
DX: N28.1 Cyst of kidney, acquired (principal)
CPT/HCPCS: 76770

== ENCOUNTER 2021-02-22 02:42 | Emergency (ER) | payer MEDICARE ==
[~2021-02-22] VITALS: Ht 177.8 cm; Wt 72.5 kg
[~2021-02-22 02:42] MED LIST changes: -AMIO200T4 PO; +AMIO200T6 PO; +AMLO-250 PO; +AMLO-251 PO; -AMLO10TA7 PO; -AMLO5TAB9 PO; -CLON0.2T PO
[2021-02-22 02:43] VITALS: BP 131/75
--- NOTE | 2021-02-22 03:23 | ED Back Pain ---
General Chief Complaint: Back Problems Stated Complaint: BACK PAIN Nursing Triage Note: TO ED ROOM 8 WITH C/O BACK PAIN. DENIES INJURY, DENIES NUMBNESS OR TINGLING. PT STATES HE HAS CHRONIC BACK PAIN AND STATES, "I RAN OUT OF MY PAIN MEDICINE A WEEK AGO". STATES HE SELF MEDICATES WITH MARIJUANA. Nursing Sepsis Screen: No Definite Risk Source of Information: Patient (DIFFICULT AND LIMITED HISTORIAN. DOES NOT KNOW ANY OF HIS MEDICATIONS OR WHAT HE TAKES THEM FOR. ), EMS, Old Records (ALL PMH IS FROM OLD RECORDS) History of Present Illness Date Seen by Provider: Feb 22, 2021 Time Seen by Provider: 02:44 Initial Comments PT ARRIVES VIA EMS FROM HOME C/O CHRONIC BACK PAIN STATES HE RAN OUT OF HIS HYDROCODONE A WEEK AGO HAS NOT ATTEMPTED TO CONTACT HIS DR REGARDING THIS PROBLEM PT STATES HE DOES NOT KNOW WHO PRESCRIBES HIS HYDROCODONE, BUT THINKS IT IS DR. YEPEZ. PT DOES NOT KNOW IF HE HAS REFILLS ON PRESCRIPTION OR WHEN HE CAN REFILL IT IF HE DOES PT HAS NOT TAKEN ANYTHING ELSE FOR PAIN --PT TOLD EMS HE "SELF MEDICATES WITH MARIJUANA" STATES HE "COULDN'T GET OUT OF BED" NO RECENT FALL OR INJURY NO PARESTHESIAS OR MOTOR DEFICITS NO CHANGE IN BOWEL OR BLADDER FUNCTION. PT STATES HE HAS BEEN GOING TO DR. ZAVALETA AT [address] IN [place] FOR HIS BACK PAIN PER MED RECONCILIATION, PT WAS PRESCRIBED TRAMADOL 01/22/[address] ZAVALETA. BRINGS IN BOTTLES OF HIS MEDICATIONS, BUT DOES NOT BRING IN HIS HYDROCODONE BOTTLE OR ANY PAIN MEDICATION BOTTLES. IN ADDITION TO SMOKING MARIJUANA ON DAILY BASIS, PT ALSO DRINKS AT LEAST A 6 PACK OF BEER A DAY AND SMOKES 1 PACK OF CIGARETTES A DAY. Other Comments PCP:DR. YEPEZ Allergies and Home Medications Allergies Coded Allergies: Sulfa (Sulfonamide Antibiotics) (Verified Allergy, Unknown, 10/04/19) Home Medications Acetaminophen 650 Mg Tablet.er, 650-1,300 MG PO Q8H PRN for PAIN-MILD (1-4), (Reported) Albuterol Sulfate 8.5 Gm Hfa.aer.ad, 1-2 PUFF IH Q4H PRN for WHEEZING, (Repor guevara) Albuterol Sulfate 2.5 Mg/0.5 Ml Vial.neb, 2.5 MG NEB Q4H PRN for SHORTNESS OF BREATH, (Reported) Amiodarone HCl 200 Mg Tablet, 200 MG PO BID, (Reported) Amlodipine Besylate 5 Mg Tablet, 5 MG PO DAILY, (Reported) Apixaban 5 Mg Tablet, 5 MG PO BID, (Reported) Bisacodyl 5 Mg Tablet.dr, 5 MG PO DAILY PRN for CONSTIPATION-4TH LINE, (Reported) Buspirone HCl 5 Mg Tablet, 5 MG PO TID PRN for ANXIETY, (Reported) Cefdinir 300 Mg Capsule, 300 MG PO BID Prescribed by: PATRICIA REID on 04/19/20 1002 Diltiazem HCl 120 Mg Cap.er.24h, 120 MG PO DAILY, (Reported) Enalapril Maleate 20 Mg Tablet, 20 MG PO DAILY, (Reported) Fluticasone Propion/Salmeterol 1 Each Blst.w.dev, 1 PUFF IN BID, (Reported) Furosemide 80 Mg Tablet, 80 MG PO DAILY, (Reported) Metolazone 5 Mg Tablet, 5 MG PO DAILY Prescribed by: PATRICIA REID on 04/19/20 1002 Metoprolol Tartrate 100 Mg Tablet, 100 MG PO BID, (Reported) Potassium Chloride 10 Meq Tablet.er, 10 MEQ PO DAILY, (Reported) Prednisone 20 Mg Tab, 40 MG PO DAILY Prescribed by: EMILIANA DUGGAN on 05/10/20 1211 Patient Home Medication List Home Medication List Reviewed: Yes Review of Systems Constitutional: no symptoms reported Respiratory: no symptoms reported Cardiovascular: no symptoms reported Gastrointestinal: no symptoms reported Genitourinary: no symptoms reported Musculoskeletal: see HPI Skin: no symptoms reported Psychiatric/Neurological: No Symptoms Reported Past Xtcsffh-Udubqc-Fcsbmz Hx Past Med/Social Hx: Reviewed and Corrections made Patient Social History Alcohol Use: Regular Use Number of Drinks Today: AA Alcohol Beverage of Choice: Beer Drug of Choice: MARIJUANA Smoking Status: Current Everyday Smoker Type Used: Cigarettes 2nd Hand Smoke Exposure: No Recent Infectious Disease Expo: No Recent Hopitalizations: No Immunizations Up To Date Tetanus Booster (TDap): Unknown PED Vaccines UTD: No Date of Pneumonia Vaccine: Aug 30, 2019 Date of Influenza Vaccine: Aug 30, 2019 Seasonal Allergies Seasonal Allergies: Yes Past Medical History Surgeries: Yes (left knee replaced x2, right TKR, shoulder sx) Appendectomy, Cardiac, Joint Replacement, Orthopedic, Tonsillectomy Respiratory: Yes (O2 AT 2-3L/NC CONTINOUSLY) COPD Currently Using CPAP: No Currently Using BIPAP: No Cardiac: Yes (CHF) Atrial Fibrillation, Chronic Edema/Swelling, Coronary Artery Disease, Hypertension, Palpitations, Valvular Heart Disease Neurological: No Reproductive Disorders: No Genitourinary: No Gastrointestinal: No Musculoskeletal: Yes (BILATERAL KNEE SURGERIES, RIGHT SHOULDER SURGERIES) Degenerate Disk Disease, Arthritis, Chronic Back Pain Endocrine: No HEENT: No Cancer: No Psychosocial: Yes Anxiety Integumentary: No Blood Disorders: No Adverse Reaction/Blood Tranf: No Family Medical History Asbestosis FH: CABG (coronary artery bypass surgery) 19 FATHER FH: breast cancer 19 MOTHER FH: uterine cancer 19 MOTHER Hypertension 19 FATHER Heart Disease, Cancer, Hypertension SOCIAL HISTORY: -DRINKS AT LEAST A 6 PACK A DAY -SMOKES MARIJUANA DAILY SINCE THE S -SMOKES 1 PPD SINCE AGE 17 PAST SURGICAL HISTORY: -KNEE REPLACEMENTS X 3--2 ON LEFT, 1 ON RIGHT -RIGHT SHOULDER SURGERY X 2 -TONSILLECTOMY -APPENDECTOMY -CARDIAC CATH 10/04/19--MODERATE DISEASE IN LAD, NO INTERVENTION LONG HISTORY OF NON-COMPLIANCE IN ALL ASPECTS OF CARE Physical Exam Vital Signs Vital Signs - First Documented 02/22/21 02:43 Temp 35.8 Pulse 84 Resp 16 B/P (MAP) 131/75 (93) O2 Delivery Room Air Capillary Refill : Less Than 3 Seconds Height, Weight, BMI Height: 5'9.00" Weight: 215lbs. 0.0oz. 97.289462md; 22.00 BMI Method:Stated General Appearance: No Apparent Distress, WD/WN, Other (TALKS NON-STOP AT LENGTH) Cardiovascular: Regular Rate, Rhythm, No Murmur Respiratory: Normal Breath Sounds, No Accessory Muscle Use, No Respiratory Distress Gastrointestinal: Non Tender, Soft Back: Decreased Range of Motion, Other (DIFFUSE MID AND LOWER BACK TENDERNESS. DTR'S INTACT BILATERALLY. MOTOR/SENSORY INTACT AND EQUAL BILATERALLY) Extremity: Normal Range of Motion, Non Tender, No Pedal Edema Neurologic/Psychiatric: Alert, Oriented x3, No Motor/Sensory Deficits, fish processor II- XII Norm as Tested Skin: Normal Color, Warm/Dry Progress/Results/Core Measures Results/Orders My Orders Orders - HIGINIO SHIPLEY DO Ketorolac Injection (Toradol Injection) (02/22/21 03:30) Orphenadrine Inj (Ed Only) (Norflex Inje (02/22/21 03:30) Diphenhydramine Injection (Benadryl Inje (02/22/21 03:30) Medications Given in ED Current Medications Medications Dose Ordered Sig/Christi Route Start Time Stop Time Status Last Admin Dose Admin Diphenhydramine HCl 50 mg ONCE ONCE IM 02/22/21 03:30 02/22/21 03:31 DC 02/22/21 03:30 50 MG Ketorolac Tromethamine 60 mg ONCE ONCE IM 02/22/21 03:30 02/22/21 03:31 DC 02/22/21 03:33 60 MG Orphenadrine Citrate 60 mg ONCE ONCE IM 02/22/21 03:30 02/22/21 03:31 DC 02/22/21 03:32 60 MG Vital Signs/I&O 02/22/21 02:43 Temp 35.8 Pulse 84 Resp 16 B/P (MAP) 131/75 (93) O2 Delivery Room Air Blood Pressure Mean: 93 Progress Progress Note : Progress Note GIVEN NORFLEX, TORADOL AND BENADRYL PT ABLE TO STAND AND TRANSFER FROM BED TO WHEELCHAIR ON HIS OWN Departure Impression Primary Impression: Chronic back pain Disposition: 01 HOME, SELF-CARE Condition: Stable Departure-Patient Inst. Referrals: GEM YEPEZ MD (PCP/Family) Primary Care Physician Patient Instructions: MANAGING YOUR CHRONIC PAIN Add. Discharge Instructions: CALL YOUR DR TODAY TO SCHEDULE A FOLLOW UP APPOINTMENT FOR FURTHER CARE All discharge instructions reviewed with patient and/or family. Voiced understanding. HIGINIO SHIPLEY DO Feb 22, 2021 03:23
[2021-02-22] MEDS ORDERED: diphenhydrAMINE 50 MG/ML INJ (BENADRYL) IM ONE (03:30)
[2021-02-22] MEDS ORDERED: ORPHENADRINE 60 MG/2 ML (NORFLEX) AMP (ED ONLY) IM ONE (03:30)
[2021-02-22] MEDS ORDERED: KETOROLAC 60 MG/2 ML VIAL IM ONE (03:30)
== END 2021-02-22 04:31 | disposition home or self-care (01) ==
LOC: EDUNIT# 02:42 → ER 02:43
DX: G89.29 Other chronic pain (principal); M54.5 Low back pain; J44.9 Chronic obstructive pulmonary disease, unspecified; I48.91 Unspecified atrial fibrillation; I25.10 Atherosclerotic heart disease of native coronary artery without angina pectoris; I10 Essential (primary) hypertension; F41.9 Anxiety disorder, unspecified; F17.210 Nicotine dependence, cigarettes, uncomplicated; Z88.2 Allergy status to sulfonamides; Z80.3 Family history of malignant neoplasm of breast; Z80.49 Family history of malignant neoplasm of other genital organs; Z82.49 Family history of ischemic heart disease and other diseases of the circulatory system; Z79.52 Long term (current) use of systemic steroids; Z79.01 Long term (current) use of anticoagulants
CPT/HCPCS: 99284

== ENCOUNTER → 2021-03-18 | Outpatient (CLI) | payer MEDICARE, MEDICAID | LOC: RAD 03-08 16:15 | PROVIDERS: ATTEND Pain Medicine Interventional Pain Medicine | DX: M48.062 Spinal stenosis, lumbar region with neurogenic claudication (principal); M54.41 Lumbago with sciatica, right side; M54.42 Lumbago with sciatica, left side; G89.29 Other chronic pain; M54.16 Radiculopathy, lumbar region; J44.9 Chronic obstructive pulmonary disease, unspecified; M46.1 Sacroiliitis, not elsewhere classified ==

== ENCOUNTER → 2021-05-28 | Outpatient (CLI) | payer MEDICARE, MEDICAID ==
--- NOTE | 2021-05-28 19:40 | Diagnostic Imaging Report ---
PROCEDURE: MRI lumbar spine. TECHNIQUE: Multiplanar, multisequence MRI of the lumbar spine was performed without contrast. DATE: May 28, 2021. COMPARISON: None. INDICATION: 75-year-old male, chronic low back pain. FINDINGS: The alignment of the lumbar spine is grossly unremarkable. There is no evidence of a diffuse marrow infiltrating or replacing process. There is a visible fracture line in the L1 vertebral body and approximately 35% L1 vertebral body height loss. There is also marrow edema in the L1 vertebral body. This is compatible with an acute compression deformity. There is no retropulsed fracture fragment. There is also a visible fracture line in the L2 vertebral body with approximately 50% height loss of L2 and marrow edema also consistent with an acute compression fracture. There is no retropulsed fracture fragment at this level. There is a remote prior compression deformity or Schmorl's node of L4. There is no identified focal bone lesion specifically concerning for malignancy. There is no visualized pars interarticularis defect. The visualized cord and conus medullaris is unremarkable and terminates at the L1-L2 level. The disc heights are well preserved. There is an incompletely imaged T2 hyperintense left renal lesion measuring at least 4 cm in size which is not well characterized on this noncontrast MRI. There is an additional T2 hyperintense left renal lesion smaller in size which is not well characterized. There is an infrarenal abdominal aortic aneurysm measuring at least 3.0 x 3.6 cm in diameter which is incompletely imaged. L1-L2: There is mild diffuse disc bulge. There is mild narrowing of the right greater than left lateral recesses. The facet joints and ligamentum flavum are unremarkable. There is moderate to severe bilateral foraminal narrowing. There is no high-grade spinal canal stenosis. L2-L3: There is diffuse disc bulge. The facet joints and ligamentum flavum are unremarkable. There is moderate to severe bilateral foraminal narrowing. There is prominence of the posterior epidural fat. There is severe spinal canal stenosis. L3-L4: There is diffuse disc bulge. There are mild bilateral facet degenerative changes with ligamentum flavum hypertrophy. There is severe narrowing of the bilateral lateral recesses. There is severe bilateral foraminal narrowing. There is severe spinal canal stenosis. L4-L5: There is diffuse disc bulge. There are bilateral facet degenerative changes with ligamentum flavum hypertrophy. There is moderate narrowing of the bilateral lateral recesses. There is moderate to severe right and moderate left foraminal narrowing. There is severe spinal canal stenosis. L5-S1: There is uncovering of the disc relating to anterolisthesis as well as mild generalized diffuse disc bulge. There is moderate narrowing of bilateral lateral recesses. There are bilateral facet degenerative changes. There is no high-grade foraminal narrowing. There is mild to moderate spinal canal stenosis. IMPRESSION: 1. Multilevel severe disc and facet degenerative changes of the lumbar spine with multilevel high-grade foraminal and spinal stenosis. 2. Acute compression fractures of L1 and L2. 3. Incompletely imaged infrarenal abdominal aortic aneurysm measuring up to at least 3.6 x 3.0 cm in size. Dictated by: Dictated on workstation # [id number]
== END ==
LOC: RAD 14:07
PROVIDERS: ATTEND Pain Medicine Interventional Pain Medicine
DX: M51.36 Other intervertebral disc degeneration, lumbar region (principal); M47.816 Spondylosis without myelopathy or radiculopathy, lumbar region; M48.061 Spinal stenosis, lumbar region without neurogenic claudication; S32.020K Wedge compression fracture of second lumbar vertebra, subsequent encounter for fracture with nonunion; I71.4 Abdominal aortic aneurysm, without rupture
CPT/HCPCS: 72148

== ENCOUNTER → 2021-08-24 | Outpatient (CLI) | payer MEDICARE, MEDICAID | LOC: LABNPT 11:19 | PROVIDERS: ATTEND Internal Medicine | DX: D64.9 Anemia, unspecified (principal) | CPT/HCPCS: 82274 ==

== ENCOUNTER → 2021-09-02 | Outpatient (CLI) | payer MEDICARE, MEDICAID | LOC: CARD 09:39 | PROVIDERS: ATTEND Nurse Practitioner Family | DX: I08.3 Combined rheumatic disorders of mitral, aortic and tricuspid valves (principal) | CPT/HCPCS: 93306 ==

== ENCOUNTER 2021-11-15 12:03 | Inpatient (IN) | payer MEDICARE, MEDICAID ==
[~2021-11-15] VITALS: Ht 177 cm; Wt 84.7 kg
[~2021-11-15 12:03] MED LIST changes: -AMIO200T6 PO; +AMIO200T65 PO; +POTA-160 PO; -POTA10TA6 PO
--- NOTE | 2021-11-15 12:28 | ED Fall/Injury ---
General Chief Complaint: Trauma-Non Activation Stated Complaint: FALL Nursing Triage Note: TO ED PER EMS FROM [facility]. PATIENT FELL YESTERDAY HE REPORTS FROM TAKING TO [facility]. DID NOT COME TO SEEK TREATMENT YESTERDAY. TODAY UNABALE TO PUT ANY WT ON L LEG. Source: patient Exam Limitations: no limitations (MARCELINO BOUDREAUX APRN) History of Present Illness Date Seen by Provider: Nov 15, 2021 Time Seen by Provider: 12:25 Initial Comments 76-year-old gentleman with history of oxygen dependent COPD, chronic diastolic heart failure, hypertension, paroxysmal A. fib, coronary artery disease, chronic kidney disease presents to ER by EMS from [facility] where he resides with reports of a fall last night. Refused EMS transport last night. He believes that he fell because his doctor changed his pain medication from hydrocodone to oxycodone and he inadvertently got both last night. He believes that caused him to fall. He has subsequently developed left hip pain and he did strike his head but denies any head pain or loss of consciousness. EMS reports he was unable to bear weight on the left leg. He is on Eliquis. Primary care is Dr. Blair. Occurred: yesterday Severity: moderate Injuries/Pain Location: lower extremity Context: slipped Loss of Consciousness: no loss of consciousness (MARCELINO BOUDREAUX APRN) Allergies and Home Medications Allergies Coded Allergies: Sulfa (Sulfonamide Antibiotics) (Verified Allergy, Unknown, 10/04/19) Patient Home Medication List Home Medication List Reviewed: Yes (MARCELINO BOUDREAUX APRN) Acetaminophen (8Hr Arthritis Pain) 650 Mg Tablet.er, 650-1,300 MG PO Q8H PRN for PAIN-MILD (1-4), (Reported) Entered as Reported by: BLANCA GOMES on 04/09/20 0950 Last Action: Converted Albuterol Sulfate (Proair Hfa) 8.5 Gm Hfa.aer.ad, 1-2 PUFF IH Q4H PRN for WHEEZING, (Reported) Entered as Reported by: TIERRA COOK on 07/09/16 1121 Last Action: Held Albuterol Sulfate (Albuterol Sulfate) 2.5 Mg/0.5 Ml Vial.neb, 2.5 MG NEB Q4H PRN for SHORTNESS OF BREATH, (Reported) Entered as Reported by: PARVEZ PRUITT on 10/04/19 1602 Last Action: Continued Amiodarone HCl (Amiodarone HCl) 200 Mg Tablet, 200 MG PO BID, (Reported) Entered as Reported by: PARVEZ PRUITT on 10/04/191554 Last Action: Continued Amlodipine Besylate (Amlodipine Besylate) 5 Mg Tablet, 5 MG PO DAILY, (Reported) Entered as Reported by: BLANCA GOMES on 04/09/20947 Last Action: Continued Apixaban (Eliquis) 5 Mg Tablet, 5 MG PO BID, (Reported) Entered as Reported by: PARVEZ PRUITT on 10/04/191554 Last Action: Held Bisacodyl (Dulcolax) 5 Mg Tablet.dr, 5 MG PO DAILY PRN for CONSTIPATION-4TH LINE, (Reported) Entered as Reported by: BLANCA GOMES on 04/09/20 0950 Last Action: Continued Buspirone HCl (Buspirone HCl) 5 Mg Tablet, 5 MG PO TID PRN for ANXIETY, (Reported) Entered as Reported by: BLANCA GOMES on 04/09/20947 Last Action: Continued Cefdinir (Cefdinir) 300 Mg Capsule, 300 MG PO BID Prescribed by: PATRICIA REID on 04/19/20 1002 Last Action: Held Diltiazem HCl (Diltiazem 24Hr ER) 120 Mg Cap.er.24h, 120 MG PO DAILY, (Reported) Entered as Reported by: PARVEZ PRUITT on 10/04/191554 Last Action: Continued Enalapril Maleate (Enalapril Maleate) 20 Mg Tablet, 20 MG PO DAILY, (Reported) Entered as Reported by: TIERRA COOK on 07/09/16 1121 Last Action: Reviewed Fluticasone Propion/Salmeterol (Wixela 250-50 Inhub) 1 Each Blst.w.dev, 1 PUFF IN BID, (Reported) Entered as Reported by: BLANCA GOMES on 04/09/20947 Last Action: Reviewed Furosemide (Lasix) 80 Mg Tablet, 80 MG PO DAILY, (Reported) Entered as Reported by: BLANCA GOMES on 04/09/20947 Last Action: Held Metolazone (Metolazone) 5 Mg Tablet, 5 MG PO DAILY Prescribed by: PATRICIA REID on 04/19/20 1002 Last Action: Held Metoprolol Tartrate (Metoprolol Tartrate) 100 Mg Tablet, 100 MG PO BID, (Reported) Entered as Reported by: PARVEZ PRUITT on 08/15/19 0911 Last Action: Reviewed Potassium Chloride (Klor-Con 10) 10 Meq Tablet.er, 10 MEQ PO DAILY, (Reported) Entered as Reported by: BLANCA GOMES on 04/09/20 0950 Last Action: Held Prednisone (Prednisone) 20 Mg Tab, 40 MG PO DAILY Prescribed by: EMILIANA DUGGAN on 05/10/20 1211 Last Action: Held Review of Systems Review of Systems Constitutional: see HPI Eyes: No Symptoms Reported Ears, Nose, Mouth, Throat: no symptoms reported Respiratory: no symptoms reported Cardiovascular: no symptoms reported Genitourinary: no symptoms reported Musculoskeletal: see HPI Skin: no symptoms reported Psychiatric/Neurological: No Symptoms Reported (MARCELINO BOUDREAUX APRN) Past Woiekvc-Xvoupv-Vwjydg Hx Immunizations Up To Date Tetanus Booster (TDap): Unknown PED Vaccines UTD: No (MARCELINO BOUDREAUX APRN) Seasonal Allergies Seasonal Allergies: Yes (MARCELINO BOUDREAUX APRN) Past Medical History Surgeries: Yes (left knee replaced x2, right TKR, shoulder sx) Appendectomy, Cardiac, Joint Replacement, Orthopedic, Tonsillectomy Respiratory: Yes (O2 AT 2-3L/NC CONTINOUSLY) COPD Currently Using CPAP: No Currently Using BIPAP: No Cardiac: Yes (CHF) Atrial Fibrillation, Chronic Edema/Swelling, Coronary Artery Disease, Hypertension, Palpitations, Valvular Heart Disease Neurological: No Reproductive Disorders: No Genitourinary: No Gastrointestinal: No Musculoskeletal: Yes (BILATERAL KNEE SURGERIES, RIGHT SHOULDER SURGERIES) Degenerate Disk Disease, Arthritis, Chronic Back Pain Endocrine: No HEENT: No Cancer: No Psychosocial: Yes Anxiety Integumentary: No Blood Disorders: No Adverse Reaction/Blood Tranf: No (MARCELINO BOUDREAUX APRN) Family Medical History Asbestosis FH: CABG (coronary artery bypass surgery) 19 FATHER FH: breast cancer 19 MOTHER FH: uterine cancer 19 MOTHER Hypertension 19 FATHER Heart Disease, Cancer, Hypertension SOCIAL HISTORY:-DRINKS AT LEAST A 6 PACK A DAY-SMOKES MARIJUANA DAILY SINCE THE 1960'S-SMOKES 1 PPD SINCE AGE 17PAST SURGICAL HISTORY: -KNEE REPLACEMENTS X 3--2 ON LEFT, 1 ON RIGHT-RIGHT SHOULDER SURGERY X 6-HWKUZICIVYHZL-XLFPEVRHFKOW-CARDIAC CATH 10/04/19--MODERATE DISEASE IN LAD, NO INTERVENTIONLONG HISTORY OF NON-COMPLIANCE IN ALL ASPECTS OF CARE (MARCELINO BOUDREAUX APRN) Physical Exam Vital Signs Vital Signs - First Documented 11/15/21 11/15/21 12:20 13:46 Temp 36.0 Pulse 79 Resp 18 B/P (MAP) 154/83 (106) Pulse Ox 92 O2 Delivery Room Air O2 Flow Rate 2.00 (EMILIANA FLOREZ MD) Vital Signs Capillary Refill : Less Than 3 Seconds (MARCELINO BOUDREAUX APRN) Height, Weight, BMI Height: 5'9.00" Weight: 215lbs. 0.0oz. 97.309349pi; 35.00 BMI Method:Stated General Appearance: WD/WN, no apparent distress, other (Alert and oriented GCS 15. What was 93% on his baseline 2 L of oxygen) HEENT: PERRL/EOMI, normal ENT inspection Neck: non-tender, full range of motion Cardiovascular: irregularly irregular, other (Pedal edema) Respiratory: no respiratory distress, no accessory muscle use, other (right anterior lower chest tender to palpation) Gastrointestinal: normal bowel sounds, non tender, soft Extremities: pelvis stable (Limited range of motion left hip), pedal edema, other (1-2+ pitting edema bilateral lower extremity.) Neurologic/Psychiatric: alert, normal mood/affect, oriented x 3 Skin: normal color, warm/dry (MARCELINO BOUDREAUX APRN) Sarah Coma Score Best Eye Response: (4) Open Spontaneously Best Verbal Response: (5) Oriented Best Motor Response: (6) Obeys Commands Sarah Total: 15 (MARCELINO BOUDREAUX APRN) Progress/Results/Core Measures Results/Orders Lab Results Laboratory Tests Test 11/15/21 12:22 11/15/21 13:10 11/15/21 14:18 Range/Units White Blood Count 13.5 H 4.3-11.0 10^3/uL Red Blood Count 3.44 L 4.30-5.52 10^6/uL Hemoglobin 9.5 L 13.3-17.7 g/dL Hematocrit 30 L 40-54 % Mean Corpuscular Volume 88 80-99 fL Mean Corpuscular Hemoglobin 28 25-34 pg Mean Corpuscular Hemoglobin Concent 32 32-36 g/dL Red Cell Distribution Width 16.9 H 10.0-14.5 % Platelet Count 283 130-400 10^3/uL Mean Platelet Volume 10.1 9.0-12.2 fL Immature Granulocyte % (Auto) 0 % Neutrophils (%) (Auto) 82 H 42-75 % Lymphocytes (%) (Auto) 8 L 12-44 % Monocytes (%) (Auto) 5 0-12 % Eosinophils (%) (Auto) 4 0-10 % Basophils (%) (Auto) 0 0-10 % Neutrophils # (Auto) 11.2 H 1.8-7.8 10^3/uL Lymphocytes # (Auto) 1.0 1.0-4.0 10^3/uL Monocytes # (Auto) 0.7 0.0-1.0 10^3/uL Eosinophils # (Auto) 0.6 H 0.0-0.3 10^3/uL Basophils # (Auto) 0.0 0.0-0.1 10^3/uL Immature Granulocyte # (Auto) 0.1 0.0-0.1 10^3/uL Prothrombin Time 15.8 H 12.2-14.7 SEC INR Comment 1.2 0.8-1.4 Sodium Level 138 135-145 MMOL/L Potassium Level 3.7 3.6-5.0 MMOL/L Chloride Level 94 L 98-107 MMOL/L Carbon Dioxide Level 30 21-32 MMOL/L Anion Gap 14 5-14 MMOL/L Blood Urea Nitrogen 57 H 7-18 MG/DL Creatinine 2.37 H 0.60-1.30 MG/DL Estimat Glomerular Filtration Rate 27 BUN/Creatinine Ratio 24 Glucose Level 99 70-105 MG/DL Calcium Level 9.1 8.5-10.1 MG/DL Corrected Calcium 9.3 8.5-10.1 MG/DL Total Bilirubin 0.6 0.1-1.0 MG/DL Aspartate Amino Transf (AST/SGOT) 23 5-34 U/L Alanine Aminotransferase (ALT/SGPT) 19 0-55 U/L Alkaline Phosphatase 82 40-136 U/L Total Protein 7.5 6.4-8.2 GM/DL Albumin 3.8 3.2-4.5 GM/DL Procalcitonin 0.60 H <0.10 NG/ML Urine Color YELLOW Urine Clarity CLEAR Urine pH 6.0 5-9 Urine Specific [place] 1.010 L 1.016-1.022 Urine Protein NEGATIVE NEGATIVE Urine Glucose (UA) NEGATIVE NEGATIVE Urine Ketones NEGATIVE NEGATIVE Urine Nitrite NEGATIVE NEGATIVE Urine Bilirubin NEGATIVE NEGATIVE Urine Urobilinogen 0.2 < = 1.0 MG/DL Urine Leukocyte Esterase NEGATIVE NEGATIVE Urine RBC (Auto) TRACE-I H NEGATIVE Urine RBC RARE /HPF Urine WBC NONE /HPF Urine Squamous Epithelial Cells NONE /HPF Urine Crystals NONE /LPF Urine Bacteria NEGATIVE /HPF Urine Casts NONE /LPF Urine Mucus NEGATIVE /LPF Urine Culture Indicated NO Lactic Acid Level 2.74 *H 0.50-2.00 MMOL/L Influenza Type A (RT-PCR) Not Detected Not Detecte Influenza Type B (RT-PCR) Not Detected Not Detecte SARS-CoV-2 RNA (RT-PCR) Not Detected Not Detecte (EMILIANA FLOREZ MD) Micro Results Microbiology 11/15/21 Blood Culture - Preliminary, Resulted Bacillus sp not B. anthracis Staphylococcus hominis (EMILIANA FLOREZ MD) Vital Signs/I&O 11/15/21 11/15/21 12:20 13:46 Temp 36.0 Pulse 79 73 Resp 18 18 B/P (MAP) 154/83 (106) 149/81 Pulse Ox 92 92 O2 Delivery Room Air Nasal Cannula O2 Flow Rate 2.00 (EMILIANA FLOREZ MD) Blood Pressure Mean: 106 Focused Exam Lactate Level 11/15/21 14:18: Lactic Acid Level 2.74*H (EMILIANA FLOREZ MD) Lactic Acid Level Laboratory Tests Test 11/15/21 14:18 Lactic Acid Level 2.74 MMOL/L (0.50-2.00) *H (EMILIANA FLOREZ MD) Departure Communication (Admissions) [id number] Kruegr will admit. Spoke with Dr. Stallworth he will consult and would like me to visit with anesthesia. Since the patient is on Eliquis if anesthesia would prefer to do a spinal for surgery then this will require him to be off of oral anticoagulants for a longer period of time. He will visit with anesthesia about their preference. I also spoke with Dr. Adler and he will consult on the patient. Patient and his girlfriend/fianc� are aware of the plan. We will hold Eliquis until surgery, timing of surgery to be determined by Dr. Stallworth and anesthesia. Family Conversation NAME: VALDO KRUGER [facility] REC#: [id number] PT STATUS: REG ER : 1945 PHYSICIAN: MARCELINO BOUDREAUX APRN ADMIT DATE: 11/15/21/ER Draft Date of Exam:11/15/21 CHEST 1 VIEW, AP/PA ONLY INDICATION: Fall. TIME OF EXAM: 01:00 p.m. COMPARISON: Correlation is made with prior chest from 05/10/2020. FINDINGS: There is a parenchymal density in the right lung base consistent with some infiltrate. Heart is enlarged. There is some blunting of the right costophrenic angle as well consistent with small amount of pleural fluid. No pneumothorax is seen. There is some linear atelectasis in the left midlung. There appears to be a fracture involving a lower right anterior rib, approximately right eighth rib. IMPRESSION: Lower right anterior rib fracture. There is some infiltrate in the right base and trace pleural fluid as well. In a patient with recent fall, findings are suspicious for pulmonary contusion and perhaps a small hemothorax. No pneumothorax is identified. Dictated on workstation # [id number] Dict: 11/15/21 1303 Trans: 11/15/21 1310 [id number] Interpreted by: NELY HERNANDEZ MD Electronically signed by: NAME: VALDO KRUGER [facility] REC#: [id number] PT STATUS: REG ER : 1945 PHYSICIAN: MARCELINO BOUDREAUX APRN ADMIT DATE: 11/15/21/ER Draft Date of Exam:11/15/21 CT HEAD/CERVICAL SPINE WO PROCEDURE: CT head and CT cervical spine without contrast. TECHNIQUE: Multiple contiguous axial images were obtained through the brain and cervical spine without the use of intravenous contrast. Sagittal and coronal reformations through the cervical spine were then performed. Auto Exposure Controls were utilized during the CT exam to meet ALARA standards for radiation dose reduction. INDICATION: Fell head and neck pain There are no prior studies available for comparison. CT HEAD: There is no mass, shift of the midline or hemorrhage to suggest an acute intracranial abnormality. The ventricles are not abnormally dilated. There is fairly profound cortical atrophy involving the parietal lobes posteriorly. The bone windows show no sign of a fracture or destructive lesion. The orbits are symmetrical and within normal limits. The sinuses are generally clear. IMPRESSION: 1. There is no evidence for an acute intracranial abnormality . 2. If clinical concern regarding an underlying abnormality persists, then MRI would be recommended for further study. CT CERVICAL SPINE The parasagittal images show fairly severe degenerative disc and bony disease at C5-C6 and C6-C7. The disc spaces are narrowed and there is osteophyte formation on the opposing endplates of C5-C6 and C6-7. There is no high-grade stenosis at either of these levels but there is narrowing the neural foramen bilaterally. There is also slight retrolisthesis of C3 with respect to C4 narrowing of the disc space at this level. There is no evidence of significant stenosis at this level. There is some narrowing of the neural foramen on the right. There is no fracture or acute bony abnormality appreciated. There is no sign of retropharyngeal edema. The thyroid gland and the lung apices where visualized show no acute abnormality. IMPRESSION: There is no evidence for an acute bony abnormality of the cervical spine. Dictated on workstation # [id number] Dict: 11/15/21 1300 Trans: 11/15/21 1310 [facility] [id number] Interpreted by: SAHIL GUIDRY MD Electronically signed by: NAME: VALDO KRUGER [facility] REC#: [id number] PT STATUS: REG ER : 1945 PHYSICIAN: MARCELINO BOUDREAUX APRN ADMIT DATE: 11/15/21/ER Draft Date of Exam:11/15/21 PELVIS WITH LEFT HIP 2-3 VIEWS INDICATION: Fall, with left hip pain. TIME OF EXAM: 1:01 p.m. FINDINGS: AP view of the pelvis and two views of the left hip were obtained. There is a fracture through the left femoral neck. Femoroacetabular alignment is maintained. The right hip appears intact. Rami appear intact. IMPRESSION: Left femoral neck fracture. Dictated on workstation # [id number] Dict: 11/15/21 1305 Trans: 11/15/21 1306 [id number] Interpreted by: NELY HERNANDEZ MD Electronically signed by: (MARCELINO BOUDREAUX APRN) Impression Primary Impression: Hip fracture, left Additional Impressions: Pneumonia Pulmonary contusion Disposition: ADMITTED INPATIENT Condition: Stable Admissions Decision to Admit Reason: Admit from ER (Trauma) Decision to Admit/Date: Nov 15, 2021 Time/Decision to Admit Time: 13:15 (MARCELINO BOUDREAUX APRN) Departure-Patient Inst. Referrals: GEM BLAIR MD (PCP) Primary Care Physician ATTENDING PHYSICIAN NOTE: I was physically present as attending physician in the emergency department during the care of this patient, but I was not directly involved in the decision making or delivery of care for this patient. (EMILIANA FLOREZ MD) MARCELINO BOUDREAUX APRN Nov 15, 2021 12:28 EMILIANA FLOREZ MD Nov 18, 2021 06:47
[2021-11-15 12:31] LABS: BASOPHILS % (AUTO) 0 % (0-10); EOSINOPHILS # (AUTO) 0.6 10^3/uL (0.0-0.3); EOSINOPHILS % (AUTO) 4 % (0-10); HEMATOCRIT 30 % (40-54); HEMOGLOBIN 9.5 g/dL (13.3-17.7); LYMPHOCYTES % (AUTO) 8 % (12-44); MEAN CORPUSCULAR HEMOGLOBIN 28 pg (25-34); MEAN CORPUSCULAR HGB CONC 32 g/dL (32-36); MEAN CORPUSCULAR VOLUME 88 fL (80-99); MEAN PLATELET VOLUME 10.1 fL (9.0-12.2); MONOCYTES # (AUTO) 0.7 10^3/uL (0.0-1.0); MONOCYTES % (AUTO) 5 % (0-12); NEUTROPHILS # (AUTO) 11.2 10^3/uL (1.8-7.8); NEUTROPHILS % (AUTO) 82 % (42-75); PLATELET COUNT 283 10^3/uL (130-400); WHITE BLOOD COUNT 13.5 10^3/uL (4.3-11.0)
[2021-11-15 12:42] LABS: ALBUMIN 3.8 GM/DL (3.2-4.5)
[2021-11-15 12:43] LABS: POTASSIUM 3.7 MMOL/L (3.6-5.0)
[2021-11-15 12:44] LABS: CALCIUM 9.1 MG/DL (8.5-10.1); INR 1.2 (0.8-1.4); PROTHROMBIN TIME PATIENT 15.8 SEC (12.2-14.7)
[2021-11-15 12:45] LABS: TOTAL PROTEIN 7.5 GM/DL (6.4-8.2)
[2021-11-15 12:47] LABS: BILIRUBIN,TOTAL 0.6 MG/DL (0.1-1.0)
[2021-11-15 12:49] LABS: CREATININE SERUM 2.37 MG/DL (0.60-1.30)
[2021-11-15] MEDS ORDERED: LACTATED RINGERS 1,000 ML IV SCH (13:00)
--- NOTE | 2021-11-15 13:07 | Diagnostic Imaging Report ---
INDICATION: Fall, with left hip pain. TIME OF EXAM: 1:01 p.m. FINDINGS: AP view of the pelvis and two views of the left hip were obtained. There is a fracture through the left femoral neck. Femoroacetabular alignment is maintained. The right hip appears intact. Rami appear intact. IMPRESSION: Left femoral neck fracture. Dictated by: Dictated on workstation # [id number]
--- NOTE | 2021-11-15 13:10 | Diagnostic Imaging Report ---
INDICATION: Fall. TIME OF EXAM: 01:00 p.m. COMPARISON: Correlation is made with prior chest from 05/10/2020. FINDINGS: There is a parenchymal density in the right lung base consistent with some infiltrate. Heart is enlarged. There is some blunting of the right costophrenic angle as well consistent with small amount of pleural fluid. No pneumothorax is seen. There is some linear atelectasis in the left midlung. There appears to be a fracture involving a lower right anterior rib, approximately right eighth rib. IMPRESSION: Lower right anterior rib fracture. There is some infiltrate in the right base and trace pleural fluid as well. In a patient with recent fall, findings are suspicious for pulmonary contusion and perhaps a small hemothorax. No pneumothorax is identified. Dictated by: Dictated on workstation # [id number]
--- NOTE | 2021-11-15 13:11 | Diagnostic Imaging Report ---
PROCEDURE: CT head and CT cervical spine without contrast. TECHNIQUE: Multiple contiguous axial images were obtained through the brain and cervical spine without the use of intravenous contrast. Sagittal and coronal reformations through the cervical spine were then performed. Auto Exposure Controls were utilized during the CT exam to meet ALARA standards for radiation dose reduction. INDICATION: Fell head and neck pain There are no prior studies available for comparison. CT HEAD: There is no mass, shift of the midline or hemorrhage to suggest an acute intracranial abnormality. The ventricles are not abnormally dilated. There is fairly profound cortical atrophy involving the parietal lobes posteriorly. The bone windows show no sign of a fracture or destructive lesion. The orbits are symmetrical and within normal limits. The sinuses are generally clear. IMPRESSION: 1. There is no evidence for an acute intracranial abnormality . 2. If clinical concern regarding an underlying abnormality persists, then MRI would be recommended for further study. CT CERVICAL SPINE The parasagittal images show fairly severe degenerative disc and bony disease at C5-C6 and C6-C7. The disc spaces are narrowed and there is osteophyte formation on the opposing endplates of C5-C6 and C6-7. There is no high-grade stenosis at either of these levels but there is narrowing the neural foramen bilaterally. There is also slight retrolisthesis of C3 with respect to C4 narrowing of the disc space at this level. There is no evidence of significant stenosis at this level. There is some narrowing of the neural foramen on the right. There is no fracture or acute bony abnormality appreciated. There is no sign of retropharyngeal edema. The thyroid gland and the lung apices where visualized show no acute abnormality. IMPRESSION: There is no evidence for an acute bony abnormality of the cervical spine. Dictated by: Dictated on workstation # [id number]
[2021-11-15 13:13] LABS: BILIRUBIN,URINE NEGATIVE (NEGATIVE); CLARITY,URINE CLEAR; COLOR,URINE YELLOW; GLUCOSE, URINE (UA) NEGATIVE (NEGATIVE); KETONES,URINE NEGATIVE (NEGATIVE); LEUKOCYTE ESTERASE ,URINE NEGATIVE (NEGATIVE); NITRITE,URINE NEGATIVE (NEGATIVE); PROTEIN,URINE NEGATIVE (NEGATIVE)
[2021-11-15 13:20] LABS: BACTERIA,URINE NEGATIVE /HPF; RBC,URINE RARE /HPF
--- NOTE | 2021-11-15 13:54 | Consultation-Cardiology ---
HPI-Cardiology Cardiology Consultation: Date of Consultation 11/15/21 Date of Admission 11-15-21 Attending Physician Admitting Physician Wilfredo Blair MD Consulting Physician Xavier Stone MD Primary Woodenware Assembler: Dr. Joseph HPI: Chief Complaint: Cardiac evaluation Mr. Kruger is a 76 yr old male who comes in today post non-syncopal fall resulting QXC-Vqwriz-Aqemin Hx Patient Social History 2nd Hand Smoke Exposure: No Alcohol Use?: No Pt feels they are or have been: No Immunizations Up To Date Tetanus Booster (TDap): Unknown Date of Pneumonia Vaccine: Aug 30, 2019 Date of Influenza Vaccine: Aug 30, 2019 Past Medical History PMH As described under Assessment. Family Medical History Family Medical History: Reported family h/o father having CAD with CABG and HTN Family History: 19 FATHER FH: CABG (coronary artery bypass surgery) Hypertension 19 MOTHER FH: breast cancer FH: uterine cancer Relation not specified for: Asbestosis Allergies and Home Medications Allergies Coded Allergies: Sulfa (Sulfonamide Antibiotics) (Verified Allergy, Unknown, 10/04/19) Patient Home Medication List Acetaminophen (8Hr Arthritis Pain) 650 Mg Tablet.er, 650-1,300 MG PO Q8H PRN for PAIN-MILD (1-4), (Reported) Entered as Reported by: BLANCA GOMES on 04/09/20 0950 Last Action: Converted Albuterol Sulfate (Proair Hfa) 8.5 Gm Hfa.aer.ad, 1-2 PUFF IH Q4H PRN for WHEEZING, (Reported) Entered as Reported by: TIERRA COOK on 07/09/16 1121 Last Action: Held Albuterol Sulfate (Albuterol Sulfate) 2.5 Mg/0.5 Ml Vial.neb, 2.5 MG NEB Q4H PRN for SHORTNESS OF BREATH, (Reported) Entered as Reported by: PARVEZ PRUITT on 10/04/19 1602 Last Action: Continued Amiodarone HCl (Amiodarone HCl) 200 Mg Tablet, 200 MG PO BID, (Reported) Entered as Reported by: PARVEZ PRUITT on 10/04/19 1555 Last Action: Continued Amlodipine Besylate (Amlodipine Besylate) 5 Mg Tablet, 5 MG PO DAILY, (Reported) Entered as Reported by: BLANCA GOMES on 04/09/20 0948 Last Action: Continued Apixaban (Eliquis) 5 Mg Tablet, 5 MG PO BID, (Reported) Entered as Reported by: PARVEZ PRUITT on 10/04/191554 Last Action: Held Bisacodyl (Dulcolax) 5 Mg Tablet.dr, 5 MG PO DAILY PRN for CONSTIPATION-4TH LINE, (Reported) Entered as Reported by: BLANCA GOMES on 04/09/20 0950 Last Action: Continued Buspirone HCl (Buspirone HCl) 5 Mg Tablet, 5 MG PO TID PRN for ANXIETY, (Reported) Entered as Reported by: BLANCA GOMES on 04/09/20947 Last Action: Continued Cefdinir (Cefdinir) 300 Mg Capsule, 300 MG PO BID Prescribed by: PATRICIA REID on 04/19/201001 Last Action: Held Diltiazem HCl (Diltiazem 24Hr ER) 120 Mg Cap.er.24h, 120 MG PO DAILY, (Reported) Entered as Reported by: PARVEZ PRUITT on 10/04/191554 Last Action: Continued Enalapril Maleate (Enalapril Maleate) 20 Mg Tablet, 20 MG PO DAILY, (Reported) Entered as Reported by: TIERRA COOK on 07/09/16 1121 Last Action: Reviewed Fluticasone Propion/Salmeterol (Wixela 250-50 Inhub) 1 Each Blst.w.dev, 1 PUFF IN BID, (Reported) Entered as Reported by: BLANCA GOMES on 04/09/20947 Last Action: Reviewed Furosemide (Lasix) 80 Mg Tablet, 80 MG PO DAILY, (Reported) Entered as Reported by: BLANCA GOMES on 04/09/20947 Last Action: Held Metolazone (Metolazone) 5 Mg Tablet, 5 MG PO DAILY Prescribed by: PATRICIA REID on 04/19/20 1002 Last Action: Held Metoprolol Tartrate (Metoprolol Tartrate) 100 Mg Tablet, 100 MG PO BID, (Reported) Entered as Reported by: PARVEZ PRUITT on 08/15/19 0911 Last Action: Reviewed Potassium Chloride (Klor-Con 10) 10 Meq Tablet.er, 10 MEQ PO DAILY, (Reported) Entered as Reported by: BLANCA GOMES on 04/09/20 0950 Last Action: Held Prednisone (Prednisone) 20 Mg Tab, 40 MG PO DAILY Prescribed by: EMILIANA DUGGAN on 05/10/20 1211 Last Action: Held Physical Exam-Cardiology Physical Exam Vital Signs/I&O 11/18/21 11/18/21 11/18/21 11/18/21 00:30 01:00 04:00 07:00 Temp 37.0 36.8 Pulse 58 51 55 59 Resp 18 18 B/P (MAP) 135/63 (87) 159/73 (101) Pulse Ox 95 97 O2 Delivery Nasal Cannula Nasal Cannula O2 Flow Rate 3.00 3.00 11/18/21 11/18/21 07:24 08:00 Temp 36.4 Pulse 91 Resp 16 B/P (MAP) 165/73 (103) Pulse Ox 97 96 O2 Delivery Nasal Cannula Nasal Cannula O2 Flow Rate 3.00 2.00 11/18/21 00:00 Intake Total 3265 ml Output Total 1125 ml Balance 2140 ml Capillary Refill : Less Than 3 Seconds Data Review Labs Laboratory Tests 11/18/21 05:47: White Blood Count 11.0, Red Blood Count 2.97L, Hemoglobin 8.3L, Hematocrit 26L, Mean Corpuscular Volume 88, Mean Corpuscular Hemoglobin 28, Mean Corpuscular Hem oglobin Concent 32, Red Cell Distribution Width 16.9H, Platelet Count 213, Mean Platelet Volume 10.3, Immature Granulocyte % (Auto) 0, Neutrophils (%) (Auto) 83H, Lymphocytes (%) (Auto) 6L, Monocytes (%) (Auto) 9, Eosinophils (%) (Auto) 1, Basophils (%) (Auto) 0, Neutrophils # (Auto) 9.1H, Lymphocytes # (Auto) 0.7L, Monocytes # (Auto) 1.0, Eosinophils # (Auto) 0.2, Basophils # (Auto) 0.0, Immature Granulocyte # (Auto) 0.0, Prothrombin Time 16.3H, INR Comment 1.3, Activated Partial Thromboplast Time 49H, Sodium Level 139, Potassium Level 3.5L, Chloride Level 101, Carbon Dioxide Level 25, Anion Gap 13, Blood Urea Nitrogen 34H, Creatinine 1.22, Estimat Glomerular Filtration Rate 58, BUN/Creatinine Rat io 28, Glucose Level 101, Calcium Level 8.7, Corrected Calcium 9.6, Magnesium Level 2.9H, Total Bilirubin 0.5, Aspartate Amino Transf (AST/SGOT) 17, Alanine Aminotransferase (ALT/SGPT) 14, Alkaline Phosphatase 61, Total Protein 6.3L, Albumin 2.9L Microbiology 11/16/21 MRSA Screen - Final, Complete MRSA not isolated 11/15/21 Blood Culture - Preliminary, Resulted No growth Radiology NAME: VALDO KRUGER [facility] REC#: [id number] PT STATUS: REG ER : 1945 PHYSICIAN: MARCELINO BOUDREAUX APRN ADMIT DATE: 11/15/21/ER Draft Date of Exam:11/15/21 CHEST 1 VIEW, AP/PA ONLY INDICATION: Fall. TIME OF EXAM: 01:00 p.m. COMPARISON: Correlation is made with prior chest from 05/10/2020. FINDINGS: There is a parenchymal density in the right lung base consistent with some infiltrate. Heart is enlarged. There is some blunting of the right costophrenic angle as well consistent with small amount of pleural fluid. No pneumothorax is seen. There is some linear atelectasis in the left midlung. There appears to be a fracture involving a lower right anterior rib, approximately right eighth rib. IMPRESSION: Lower right anterior rib fracture. There is some infiltrate in the right base and trace pleural fluid as well. In a patient with recent fall, findings are suspicious for pulmonary contusion and perhaps a small hemothorax. No pneumothorax is identified. Dictated on workstation # [id number] Dict: 11/15/21 1303 Trans: 11/15/21 1310 [id number] Interpreted by: NELY HERNANDEZ MD Electronically signed by: NAME: VALDO KRUGER [facility] REC#: [id number] PT STATUS: REG ER : 1945 PHYSICIAN: MARCELINO BOUDREAUX APRN ADMIT DATE: 11/15/21/ER Draft Date of Exam:11/15/21 CT HEAD/CERVICAL SPINE WO PROCEDURE: CT head and CT cervical spine without contrast. TECHNIQUE: Multiple contiguous axial images were obtained through the brain and cervical spine without the use of intravenous contrast. Sagittal and coronal reformations through the cervical spine were then performed. Auto Exposure Controls were utilized during the CT exam to meet ALARA standards for radiation dose reduction. INDICATION: Fell head and neck pain There are no prior studies available for comparison. CT HEAD: There is no mass, shift of the midline or hemorrhage to suggest an acute intracranial abnormality. The ventricles are not abnormally dilated. There is fairly profound cortical atrophy involving the parietal lobes posteriorly. The bone windows show no sign of a fracture or destructive lesion. The orbits are symmetrical and within normal limits. The sinuses are generally clear. IMPRESSION: 1. There is no evidence for an acute intracranial abnormality . 2. If clinical concern regarding an underlying abnormality persists, then MRI would be recommended for further study. CT CERVICAL SPINE The parasagittal images show fairly severe degenerative disc and bony disease at C5-C6 and C6-C7. The disc spaces are narrowed and there is osteophyte formation on the opposing endplates of C5-C6 and C6-7. There is no high-grade stenosis at either of these levels but there is narrowing the neural foramen bilaterally. There is also slight retrolisthesis of C3 with respect to C4 narrowing of the disc space at this level. There is no evidence of significant stenosis at this level. There is some narrowing of the neural foramen on the right. There is no fracture or acute bony abnormality appreciated. There is no sign of retropharyngeal edema. The thyroid gland and the lung apices where visualized show no acute abnormality. IMPRESSION: There is no evidence for an acute bony abnormality of the cervical spine. Dictated on workstation # [id number] Dict: 11/15/21 1300 Trans: 11/15/21 1310 [facility] [id number] Interpreted by: SAHIL GUIDRY MD Electronically signed by: NAME: VALDO KRUGER [facility] REC#: [id number] PT STATUS: REG ER : 1945 PHYSICIAN: MARCELINO BOUDREAUX APRN ADMIT DATE: 11/15/21/ER Draft Date of Exam:11/15/21 PELVIS WITH LEFT HIP 2-3 VIEWS INDICATION: Fall, with left hip pain. TIME OF EXAM: 1:01 p.m. FINDINGS: AP view of the pelvis and two views of the left hip were obtained. There is a fracture through the left femoral neck. Femoroacetabular alignment is maintained. The right hip appears intact. Rami appear intact. IMPRESSION: Left femoral neck fracture. Dictated on workstation # [id number] Dict: 11/15/21 1305 Trans: 11/15/21 1306 [id number] Interpreted by: NELY HERNANDEZ MD Electronically signed by: NAME: VALDO KRUGER [facility] REC#: [id number] PT STATUS: REG ER : 1945 PHYSICIAN: MARCELINO BOUDREAUX APRN ADMIT DATE: 11/15/21/ER Draft Date of Exam:11/15/21 CT CHEST/ABDOMEN/PELVIS WO PROCEDURE: CT chest, abdomen, and pelvis without contrast. TECHNIQUE: Multiple contiguous axial images were obtained through the chest, abdomen, and pelvis without the use of intravenous contrast. Auto Exposure Controls were utilized during the CT exam to meet ALARA standards for radiation dose reduction. INDICATION: Fall with right rib fractures. Comparison is made prior CT chest from 12/02/2019. CT CHEST: No mediastinal hematoma is identified. There is a small right and small left pleural effusion. Pleural fluid on the left is slightly greater than the right. Both of these effusions appear to be larger than the CT from 12/02/2019. No pericardial effusion is identified. There is a large hiatal hernia present. There is some airspace infiltrate in the posterior aspect of the right upper lobe. There is also airspace infiltrate in the right lower lobe and right middle lobe. These could represent pneumonia or contusion. No definite pneumothorax is identified. There is a probable bleb or bulla in the left lower lobe. No definite rib fracture is seen to account for the chest radiographic abnormality. Thoracic spine shows normal curvature and alignment. CT abdomen and pelvis: Hyperdensity in the gallbladder is noted consistent with sludge. No focal liver or splenic laceration is seen. Pancreas unremarkable. No adrenal mass is detected. A nonobstructing calculus lower pole left kidney measures 4 mm. There is also a large probable cyst in left kidney measuring 5.5 cm. The abdominal aorta is aneurysmal measuring 4.0 cm AP diameter. No perianeurysmal fluid collection is seen. There is large amount of stool throughout the colon consistent with constipation. Bladder and prostate are unremarkable. A left hip fracture is again noted. Severe multilevel lumbar spondylosis is noted. There are compression fractures involving T12, L1, L2 and L4, however, these may be chronic. No paraspinous hematoma is identified. IMPRESSION: 1. Bilateral pleural effusions. There is also airspace infiltrates in the right upper and right lower lobe and right middle lobe which could represent pulmonary contusions or pneumonia. There is some atelectasis in the left lower lobe and left perihilar region. 2. Large hiatal hernia. 3. No definite rib fractures identified to account for the chest radiographic abnormality. No definite pneumothorax is seen. 4. Gallbladder sludge. 5. No definite evidence of abdominal or pelvic visceral injury. 6. Left nonobstructing renal calculus and left renal cyst. 7. Abdominal aortic aneurysm. 8. Left hip fracture. Dictated on workstation # [id number] Dict: 11/15/21 1340 Trans: 11/15/21 1355 [id number] Interpreted by: NELY HERNANDEZ MD Electronically signed by: A/P-Cardiology Assessment/Admission Diagnosis S/P fall resulting in a left hip fracture - management per ortho services Sepsis - likely secondary to pneumonia Coronary artery disease, - History of cardiac catheterization done in September [address] Molina showing mild to moderate disease in the LAD, FFR was done and it was nonobstructive disease. 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 Joseph showing normal LV size, EF 50 to 55%, dilated left atrium, calcified mitral valve with mild mitral regurgitation, mild aortic regurgitation, moderate tricuspid regurgitation, severe pulmonary hypertension with PA pressure of 60 to 65 mmHg. Paroxysmal atrial fibrillation with sinus node dysfunction - ILR implanted on November 03, 2019, no significant episode of atrial fibrillation were detected - followed by Dr. Joseph - Intolerant to BB d/t bradycardia Pulmonary HTN - PASP 60-65 mmhg per echocardiogram of August [address] Joseph History of dizziness and lightheadedness near syncope. Chronic diastolic CHF - clinically compensated HLD COPD - oxygen dependent Chronic kidney disease stage III Chronic back pain using a walker. GABY MARROQUIN TRIPPER Nov 15, 2021 13:54
[2021-11-15] MEDS ORDERED: CEFEPIME INJECTION 1,000 MG in NS (IVPB) 50 ML IV ONE (14:15)
--- NOTE | 2021-11-15 16:34 | Consultation-Cardiology ---
HPI-Cardiology Cardiology Consultation: Date of Consultation 11/15/21 Time Seen by a Provider: 16:20 Date of Admission Attending Physician Deanna Sims DO Admitting Physician Wilfredo lBair MD Consulting Physician JAYSON GUTIERREZ MD, MA, FACP, FACC, FSCAI, CCDS Physician requesting Card consult: Dr Sims HPI: Chief Complaint: Reason for Card consult: Cardiac evaluation for surgery HPI Mr. Sims is a 76 yr old male who has been admitted to Dr Sims's svce after he presented with a fall yesterday at his NH that has led L hip fracture. He states he did not lose consciousness at the time of the fall. He thinks he was groggy from his pain meds. He is on chronic pain meds because of advanced osteoarthritis. He denies cp or palp or roldan syncope or shortness of breath. Review of Systems-Cardiology Review of Systems Constitutional: malaise, tiredness; No weight loss Eyes: No vision change Ears/Nose/Throat: No ear discharge, No nasal drainage, No recent hearing loss Respiratory: As described under HPI Cardiovascular: As described under HPI Gastrointestinal: No diarrhea, No nausea, No vomiting Genitourinary: No dysuria, No hematuria, No urine frequency changes Musculoskeletal: back pain, joint pain Skin: No rash, No ulcerations Psychiatric/Neurological: As described under HPI; No seizure, No focal weakness Hematologic: No bleeding abnormalities GPL-Dzvats-Kjigts Hx Patient Social History 2nd Hand Smoke Exposure: No Alcohol Use?: No Pt feels they are or have been: No Immunizations Up To Date Tetanus Booster (TDap): Unknown Date of Pneumonia Vaccine: Aug 30, 2019 Date of Influenza Vaccine: Aug 30, 2019 Past Medical History PMH As described under Assessment. Family Medical History Family Medical History: Reported family h/o father having CAD with CABG and HTN Family History: Asbestosis FH: CABG (coronary artery bypass surgery) 19 FATHER FH: breast cancer 19 MOTHER FH: uterine cancer 19 MOTHER Hypertension 19 FATHER Allergies and Home Medications Allergies Coded Allergies: Sulfa (Sulfonamide Antibiotics) (Verified Allergy, Unknown, 10/04/19) Patient Home Medication List Home Medication List Reviewed: Yes Acetaminophen (8Hr Arthritis Pain) 650 Mg Tablet.er, 650-1,300 MG PO Q8H PRN for PAIN-MILD (1-4), (Reported) Entered as Reported by: BLANCA GOMES on 04/09/20 0950 Albuterol Sulfate (Proair Hfa) 8.5 Gm Hfa.aer.ad, 1-2 PUFF IH Q4H PRN for WHEEZING, (Reported) Entered as Reported by: TIERRA COOK on 07/09/16 1121 Albuterol Sulfate (Albuterol Sulfate) 2.5 Mg/0.5 Ml Vial.neb, 2.5 MG NEB Q4H PRN for SHORTNESS OF BREATH, (Reported) Entered as Reported by: PARVEZ PRUITT on 10/04/19 1602 Amiodarone HCl (Amiodarone HCl) 200 Mg Tablet, 200 MG PO BID, (Reported) Entered as Reported by: PARVEZ PRUITT on 10/04/19 1555 Amlodipine Besylate (Amlodipine Besylate) 5 Mg Tablet, 5 MG PO DAILY, (Reported) Entered as Reported by: BLANCA GOMES on 04/09/20 0948 Apixaban (Eliquis) 5 Mg Tablet, 5 MG PO BID, (Reported) Entered as Reported by: PARVEZ PRUITT on 10/04/19 1555 Bisacodyl (Dulcolax) 5 Mg Tablet.dr, 5 MG PO DAILY PRN for CONSTIPATION-4TH LINE, (Reported) Entered as Reported by: BLANCA GOMES on 04/09/20 0950 Buspirone HCl (Buspirone HCl) 5 Mg Tablet, 5 MG PO TID PRN for ANXIETY, (Reported) Entered as Reported by: BLANCA GOMES on 04/09/20 0948 Cefdinir (Cefdinir) 300 Mg Capsule, 300 MG PO BID Prescribed by: PATRICIA REID on 04/19/20 1002 Diltiazem HCl (Diltiazem 24Hr ER) 120 Mg Cap.er.24h, 120 MG PO DAILY, (Reported) Entered as Reported by: PARVEZ PRUITT on 10/04/19 1555 Enalapril Maleate (Enalapril Maleate) 20 Mg Tablet, 20 MG PO DAILY, (Reported) Entered as Reported by: TIERRA COOK on 07/09/16 1121 Fluticasone Propion/Salmeterol (Wixela 250-50 Inhub) 1 Each Blst.w.dev, 1 PUFF IN BID, (Reported) Entered as Reported by: BLANCA GOMES on 04/09/20 0948 Furosemide (Lasix) 80 Mg Tablet, 80 MG PO DAILY, (Reported) Entered as Reported by: BLANCA GOMES on 04/09/20 0948 Metolazone (Metolazone) 5 Mg Tablet, 5 MG PO DAILY Prescribed by: PATRICIA REID on 04/19/20 1002 Metoprolol Tartrate (Metoprolol Tartrate) 100 Mg Tablet, 100 MG PO BID, (Reported) Entered as Reported by: PARVEZ PRUITT on 08/15/19 0911 Potassium Chloride (Klor-Con 10) 10 Meq Tablet.er, 10 MEQ PO DAILY, (Reported) Entered as Reported by: BLANCA GOMES on 04/09/20 0950 Prednisone (Prednisone) 20 Mg Tab, 40 MG PO DAILY Prescribed by: EMILIANA DUGGAN on 05/10/20 1211 Physical Exam-Cardiology Physical Exam Vital Signs/I&O 11/15/21 11/15/21 12:20 13:46 Temp 36.0 Pulse 79 73 Resp 18 18 B/P (MAP) 154/83 (106) 149/81 Pulse Ox 92 92 O2 Delivery Room Air Nasal Cannula O2 Flow Rate 2.00 Capillary Refill : Less Than 3 Seconds Constitutional: AAO x 3, well-developed, well-nourished HEENT: EOMI, hearing is well preserved; No xanthelasmas are seen Neck: carotid pulses are 2 + bilaterally Respiratory: No accessory muscle use; other (fair air entry, diminished at the bases) Cardiovascular: regular rate-rhythm, S1 and S2, systolic murmur (soft JULIUS at card basee) Gastrointestinal: No tender; soft; No guarding, No rebound; audible bowel sounds Extremities: other (multiple contractures at the finger joints of both hand and some swelling of joints); No clubbing, No cyanosis, No significant edema Neurologic/Psychiatric: oriented x 3, other (moves all limbs equally) Skin: No rash on exposed areas, No ulcerations on exposed areas Data Review Labs Laboratory Tests 11/15/21 12:22: White Blood Count 13.5H, Red Blood Count 3.44L, Hemoglobin 9.5L, Hematocrit 30L, Mean Corpuscular Volume 88, Mean Corpuscular Hemoglobin 28, Mean Corpuscular Hemoglobin Concent 32, Red Cell Distribution Width 16.9H, Platelet Count 283, Mean Platelet Volume 10.1, Immature Granulocyte % (Auto) 0, Neutrophils (%) (Auto) 82H, Lymphocytes (%) (Auto) 8L, Monocytes (%) (Auto) 5, Eosinophils (%) ( Auto) 4, Basophils (%) (Auto) 0, Neutrophils # (Auto) 11.2H, Lymphocytes # (Aut o) 1.0, Monocytes # (Auto) 0.7, Eosinophils # (Auto) 0.6H, Basophils # (Auto) 0 .0, Immature Granulocyte # (Auto) 0.1, Prothrombin Time 15.8H, INR Comment 1.2, Sodium Level 138, Potassium Level 3.7, Chloride Level 94L, Carbon Dioxide Level 30, Anion Gap 14, Blood Urea Nitrogen 57H, Creatinine 2.37H, Estimat Glomerular Filtration Rate 27, BUN/Creatinine Ratio 24, Glucose Level 99, Calcium Level 9.1, Corrected Calcium 9.3, Total Bilirubin 0.6, Aspartate Amino Transf (AST/SGOT) 23, Alanine Aminotransferase (ALT/SGPT) 19, Alkaline Phosphatase 82, Total Protein 7.5, Albumin 3.8, Procalcitonin 0.60H 11/15/21 13:10: Urine Color YELLOW, Urine Clarity CLEAR, Urine pH 6.0, Urine Specific [place] 1.010L, Urine Protein NEGATIVE, Urine Glucose (UA) NEGATIVE, Urine Ketones NEGATIVE, Urine Nitrite NEGATIVE, Urine Bilirubin NEGATIVE, Urine Urobilinogen 0.2, Urine Leukocyte Esterase NEGATIVE, Urine RBC (Auto) TRACE-IH, Urine RBC RARE, Urine WBC NONE, Urine Squamous Epithelial Cells NONE, Urine Crystals NONE, Urine Bacteria NEGATIVE, Urine Casts NONE, Urine Mucus NEGATIVE, Urine Culture Indicated NO 11/15/21 14:18: Lactic Acid Level 2.74*H, Influenza Type A (RT-PCR) Not Detected, Influenza Type B (RT-PCR) Not Detected, SARS-CoV-2 RNA (RT-PCR) Not Detected 11/15/21 15:53: Lactic Acid Level 0.82 Laboratory Tests 11/15/21 12:22 A/P-Cardiology Assessment/Admission Diagnosis S/P non-syncopal fall resulting in a left hip fracture - Cardiac risk for hip surgery is estimated to be intermediate Sepsis - likely secondary to pneumonia - CT chest & abd on 11/15/21: Bilateral pleural effusions and airspace infiltrates in the right upper and right lower lobe and right middle lobe which could represent pulmonary contusions or pneumonia. There is some atelectasis in the left lower lobe and left perihilar region. It also showed a large hiatal hernia, gallbladder sludge, left nonobstructing renal calculus and left renal cyst. Abdominal aortic aneurysm measuring 4 cm, seen on abd CT of 11/15/21 Coronary artery disease, - History of cardiac catheterization done in September [address] Molina showing mild to moderate disease in the LAD, FFR was done and it was nonobstructive disease. 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 Joseph showing normal LV size, EF 50 to 55%, dilated left atrium, calcified mitral valve with mild mitral regurgitation, mild aortic regurgitation, moderate tricuspid regurgitation, severe pulmonary hypertension with PA pressure of 60 to 65 mmHg. Paroxysmal atrial fibrillation with sinus node dysfunction - ILR implanted on November 03, 2019, no significant episode of atrial fibrillation were detected - followed by Dr. Joseph - Intolerant to BB d/t bradycardia Pulmonary HTN - PASP 60-65 mmhg per echocardiogram of August [address] Joseph History of dizziness and lightheadedness near syncope. Chronic diastolic CHF - clinically compensated HLD COPD - oxygen dependent Chronic kidney disease stage 4 Chronic back and joint pain Discussion and Recomendations * Dr Sims managing patient's hospitalization * We recommend DVT prophylaxis * Please resume antiplatelet therapy with aspirin and apixaban as soon as the surgeon allows * Monitor labs * I discussed his CV issues with Mr Sims and answered CV-related questions JAYSON GUTIERREZ MD FACP FAC CCDS Nov 15, 2021 16:34
[2021-11-15 16:45] VITALS: BP 175/77
[2021-11-15 17:06] VITALS: BP 175/77
[2021-11-15] MEDS ORDERED: CALCIUM CARBONATE 500 MG (TUMS) TAB.CHEW PO PRN (17:15)
[2021-11-15] MEDS ORDERED: LOPERAMIDE 2 MG (IMODIUM) TABLET PO PRN (17:15)
[2021-11-15] MEDS ORDERED: ONDANSETRON 4 MG/2 ML (SDV) Z0FRAN IVP PRN (17:15)
[2021-11-15] MEDS ORDERED: ACETAMINOPHEN 500 MG TAB (TYLENOL) PO PRN (17:15)
[2021-11-15] MEDS ORDERED: DOCUSATE SODIUM 100 MG (COLACE) CAP PO PRN (17:15)
[2021-11-15] MEDS ORDERED: diphenhydrAMINE 25 MG TAB (BENADRYL) PO PRN (17:15)
[2021-11-15] MEDS ORDERED: morphine INJ 10 MG/ML 1ML (SYR OR VIAL) IVP PRN (17:15)
[2021-11-15] MEDS: NS IV 1000 ML 1,000 ML IV SCH (17:47)
[2021-11-15] MEDS: morphine INJ 4 MG/ML 1 ML (VIAL/SYRINGE) IV PRN (17:50)
[2021-11-15] MEDS: AZITHROMYCIN INJECTION 500 MG in NS (IVPB) 250 ML IV SCH (18:06)
[2021-11-15 18:27] VITALS: BP 123/73
[2021-11-15 20:17] VITALS: BP 103/61
[2021-11-15] MEDS: polyethylene glycoL POWDER 17 GM (MIRALAX) PACK PO SCH (20:48)
[2021-11-15] MEDS: SENNA W/DOCUSATE (SENOKOT S) TABLET PO SCH (20:49)
[2021-11-15 22:24] VITALS: BP 154/83
[2021-11-15] MEDS ORDERED: RT-ALBUTEROL SULF 2.5 MG/3 ML PRE-MIX VIAL INH PRN (23:00)
[2021-11-15 23:08] VITALS: BP 103/63
[2021-11-16 04:14] VITALS: BP 135/64
[2021-11-16] MEDS: CEFEPIME INJECTION 1,000 MG in NS (IVPB) 50 ML IV SCH ×2 (04:20→16:33)
[2021-11-16 06:22] LABS: BASOPHILS % (AUTO) 0 % (0-10); EOSINOPHILS # (AUTO) 0.6 10^3/uL (0.0-0.3); EOSINOPHILS % (AUTO) 5 % (0-10); HEMATOCRIT 26 % (40-54); HEMOGLOBIN 8.2 g/dL (13.3-17.7); LYMPHOCYTES # (AUTO) 0.8 10^3/uL (1.0-4.0); LYMPHOCYTES % (AUTO) 7 % (12-44); MEAN CORPUSCULAR HEMOGLOBIN 27 pg (25-34); MEAN CORPUSCULAR HGB CONC 32 g/dL (32-36); MEAN CORPUSCULAR VOLUME 86 fL (80-99); MEAN PLATELET VOLUME 9.8 fL (9.0-12.2); MONOCYTES # (AUTO) 0.6 10^3/uL (0.0-1.0); MONOCYTES % (AUTO) 6 % (0-12); NEUTROPHILS # (AUTO) 8.6 10^3/uL (1.8-7.8); NEUTROPHILS % (AUTO) 81 % (42-75); PLATELET COUNT 238 10^3/uL (130-400); WHITE BLOOD COUNT 10.6 10^3/uL (4.3-11.0)
[2021-11-16 06:49] LABS: ALBUMIN 3.2 GM/DL (3.2-4.5)
[2021-11-16 06:50] LABS: POTASSIUM 3.6 MMOL/L (3.6-5.0)
[2021-11-16 06:51] LABS: CALCIUM 8.6 MG/DL (8.5-10.1)
[2021-11-16 06:52] LABS: TOTAL PROTEIN 6.5 GM/DL (6.4-8.2)
[2021-11-16 06:54] LABS: BILIRUBIN,TOTAL 0.6 MG/DL (0.1-1.0)
[2021-11-16 06:56] LABS: CREATININE SERUM 1.97 MG/DL (0.60-1.30)
[2021-11-16 07:06] LABS: ANISOCYTOSIS SLIGHT; EOSINOPHILS % (MANUAL) 7 %; HYPOCHROMASIA SLIGHT; LYMPHOCYTES % (MANUAL) 9 %; MONOCYTES % (MANUAL) 5 %; NEUTROPHILS % (MANUAL) 79 %
[2021-11-16] MEDS: RT-ALBUTEROL SULF 2.5 MG/3 ML PRE-MIX VIAL INH SCH ×4 (07:06→18:16)
[2021-11-16 08:00] VITALS: BP 153/79
--- NOTE | 2021-11-16 08:18 | Consultation - Ortho ---
Consult - Ortho Subjective Date of Exam 11/16/21 Chief Complaint Left Hip Injury HPI/Events since last exam 76 year old male sustained fall from standing height; seen in ER unable to ambulate with left hip pain. Diagnosed with a displaced left femoral neck fracture. Multiple medical co-morbidities--admitted to the hospitalist service; I was asked to care for the fracture. Medical, Surgical History - Social History - Family History - Review of Systems - Allergies: Coded Allergies: Sulfa (Sulfonamide Antibiotics) (Verified Allergy, Unknown, 10/04/19) Home Meds Active Scripts Prednisone (Prednisone) 20 Mg Tab, 40 MG PO DAILY, #8 TAB 0 Refills Prov:EMILIANA FLOREZ MD 05/10/20 Cefdinir (Cefdinir) 300 Mg Capsule, 300 MG PO BID, #6 CAP Prov:PATRICIA REID MD 04/19/20 Metolazone (Metolazone) 5 Mg Tablet, 5 MG PO DAILY, #30 TAB Prov:PATRICIA REID MD 04/19/20 Reported Medications Bisacodyl (Dulcolax) 5 Mg Tablet.dr, 5 MG PO DAILY PRN for CONSTIPATION-4TH LINE, TAB 04/09/20 Potassium Chloride (Klor-Con 10) 10 Meq Tablet.er, 10 MEQ PO DAILY, TAB 04/09/20 Acetaminophen (8Hr Arthritis Pain) 650 Mg Tablet.er, 650-1300 MG PO Q8H PRN for PAIN-MILD (1-4), TAB 04/09/20 Fluticasone Propion/Salmeterol (Wixela 250-50 Inhub) 1 Each Blst.w.dev, 1 PUFF IN BID, EA 04/09/20 Amlodipine Besylate (Amlodipine Besylate) 5 Mg Tablet, 5 MG PO DAILY, TAB 04/09/20 Furosemide (Lasix) 80 Mg Tablet, 80 MG PO DAILY, TAB 04/09/20 Buspirone HCl (Buspirone HCl) 5 Mg Tablet, 5 MG PO TID PRN for ANXIETY, TAB 04/09/20 Albuterol Sulfate (Albuterol Sulfate) 2.5 Mg/0.5 Ml Vial.neb, 2.5 MG NEB Q4H PRN for SHORTNESS OF BREATH, EA 10/04/19 Apixaban (Eliquis) 5 Mg Tablet, 5 MG PO BID, TAB 10/04/19 Diltiazem HCl (Diltiazem 24Hr ER) 120 Mg Cap.er.24h, 120 MG PO DAILY, CAP 10/04/19 Amiodarone HCl (Amiodarone HCl) 200 Mg Tablet, 200 MG PO BID, TAB 10/04/19 Metoprolol Tartrate (Metoprolol Tartrate) 100 Mg Tablet, 100 MG PO BID, TAB 08/15/19 Albuterol Sulfate (PROAIR HFA) 8.5 Gm Hfa.aer.ad, 1-2 PUFF IH Q4H PRN for WHEEZING, INHALER 07/09/16 Enalapril Maleate (Enalapril Maleate) 20 Mg Tablet, 20 MG PO DAILY, TAB 07/09/16 Objective Exam Left Hip: skin intact without wounds, + DF of ankle, no s/s of DVT Vital Signs Vital Signs Date Time Temp Pulse Resp B/P (MAP) Pulse Ox O2 Delivery O2 Flow Rate FiO2 11/16/21 07:07 95 Nasal Cannula 3.00 11/16/21 04:14 36.1 56 18 135/64 (87) 93 Nasal Cannula 3.00 11/15/21 23:08 36.2 52 20 103/63 (76) 98 Nasal Cannula 3.00 11/15/21 22:24 36.0 79 92 21 11/15/21 21:58 3.00 11/15/21 20:45 98 Nasal Cannula 3.00 11/15/21 20:17 37.1 62 20 103/61 (75) 93 Nasal Cannula 3.00 11/15/21 18:27 123/73 (90) 11/15/21 17:06 36.9 75 22 175/77 (109) 95 Nasal Cannula 3.00 11/15/21 17:00 Nasal Cannula 3.00 11/15/21 16:45 75 22 175/77 (109) 95 Nasal Cannula 3.00 11/15/21 13:46 73 18 149/81 92 Nasal Cannula 2.00 11/15/21 12:20 36.0 79 18 154/83 (106) 92 Room Air I & O 11/16/21 07:00 Intake Total 540 ml Output Total 1675 ml Balance -1135 ml Lab Results Laboratory Tests 11/15/21 12:22: White Blood Count 13.5H, Red Blood Count 3.44L, Hemoglobin 9.5L, Hematocrit 30L, Mean Corpuscular Volume 88, Mean Corpuscular Hemoglobin 28, Mean Corpuscular Hemoglobin Concent 32, Red Cell Distribution Width 16.9H, Platelet Count 283, Mean Platelet Volume 10.1, Immature Granulocyte % (Auto) 0, Neutrophils (%) (Auto) 82H, Lymphocytes (%) (Auto) 8L, Monocytes (%) (Auto) 5, Eosinophils (%) (Auto) 4, Basophils (%) (Auto) 0, Neutrophils # (Auto) 11.2H, Lymphocytes # (Auto) 1.0, Monocytes # (Auto) 0.7, Eosinophils # (Auto) 0.6H, Basophils # (Auto) 0.0, Immature Granulocyte # (Auto) 0.1, Prothrombin Time 15.8H, INR Comment 1.2, Sodium Level 138, Potassium Level 3.7, Chloride Level 94L, Carbon Dioxide Level 30, Anion Gap 14, Blood Urea Nitrogen 57H, Creatinine 2.37H, Estimat Glomerular Filtration Rate 27, BUN/Creatinine Ratio 24, Glucose Level 99, Calcium Level 9.1, Corrected Calcium 9.3, Total Bilirubin 0.6, Aspartate Amino Transf (AST/SGOT) 23, Alanine Aminotransferase (ALT/SGPT) 19, Alkaline Phosphatase 82, Total Protein 7.5, Albumin 3.8, Procalcitonin 0.60H 11/15/21 13:10: Urine Color YELLOW, Urine Clarity CLEAR, Urine pH 6.0, Urine Specific [place] 1.010L, Urine Protein NEGATIVE, Urine Glucose (UA) NEGATIVE, Urine Ketones NEGATIVE, Urine Nitrite NEGATIVE, Urine Bilirubin NEGATIVE, Urine Urobilinogen 0.2, Urine Leukocyte Esterase NEGATIVE, Urine RBC (Auto) TRACE-IH, Urine RBC RARE, Urine WBC NONE, Urine Squamous Epithelial Cells NONE, Urine Crystals NONE, Urine Bacteria NEGATIVE, Urine Casts NONE, Urine Mucus NEGATIVE, Urine Culture Indicated NO 11/15/21 14:18: Lactic Acid Level 2.74*H, Influenza Type A (RT-PCR) Not Detected, Influenza Type B (RT-PCR) Not Detected, SARS-CoV-2 RNA (RT-PCR) Not Detected 11/15/21 15:53: Lactic Acid Level 0.82 11/16/21 05:48: White Blood Count 10.6, Red Blood Count 3.00L, Hemoglobin 8.2L, Hematocrit 26L, Mean Corpuscular Volume 86, Mean Corpuscular Hemoglobin 27, Mean Corpuscular Hemoglobin Concent 32, Red Cell Distribution Width 17.1H, Platelet Count 238, Mean Platelet Volume 9.8, Immature Granulocyte % (Auto) 1, Neutrophils (%) (Auto) 81H, Lymphocytes (%) (Auto) 7L, Monocytes (%) (Auto) 6, Eosinophils (%) (Auto) 5, Basophils (%) (Auto) 0, Neutrophils # (Auto) 8.6H, Lymphocytes # (Auto) 0.8L, Monocytes # (Auto) 0.6, Eosinophils # (Auto) 0.6H, Basophils # (Auto) 0.0, Immature Granulocyte # (Auto) 0.1, Neutrophils % (Manual) 79, Lymphocytes % (Manual) 9, Monocytes % (Manual) 5, Eosinophils % (Manual) 7, Hypochromasia SLIGHT, Anisocytosis SLIGHT, Sodium Level 138, Potassium Level 3.6, Chloride Level 97L, Carbon Dioxide Level 29, Anion Gap 12, Blood Urea Nitrogen 52H, Creatinine 1.97H, Estimat Glomerular Filtration Rate 33, BUN/Creatinine Ratio 26, Glucose Level 89, Calcium Level 8.6, Corrected Calcium 9.2, Total Bilirubin 0.6, Aspartate Amino Transf (AST/SGOT) 20, Alanine Aminotransferase (ALT/SGPT) 15, Alkaline Phosphatase 62, Total Protein 6.5, Albumin 3.2 Microbiology 11/15/21 Blood Culture - Preliminary, Resulted No growth Imaging AP pelvis and views of the left hip dated 11/15/21 were reviewed from PACS and demonstrated a displaced femoral neck fracture Assessment and Plan Assessment Displaced Left Femoral Neck Fracture Problem List Displaced Left Femoral Neck Fracture Plan I have recommended proceeding with a left hip bipolar. Nature of the procedure and the postoperative course were discussed. Alternative of bed rest and comfort care was discussed. Discussion held with anesthesia service prior in regards to what would be the safest method for him and spinal anesthesia was recommended. Given that he is on anticoagulation chronically and the type of anticoagulant, anesthesia requires 72 hours off the medication to do spinal. Ultimately, I have scheduled him to undergo surgery on Thursday AM. Final Diagonsis Displaced Left Femoral Neck Fracture Level of the visit: Level 3 (preop) GARCIA QUESADA MD Nov 16, 2021 08:18
[2021-11-16] MEDS: polyethylene glycoL POWDER 17 GM (MIRALAX) PACK PO SCH ×2 (09:00→20:18)
[2021-11-16] MEDS: SENNA W/DOCUSATE (SENOKOT S) TABLET PO SCH ×2 (09:00→20:18)
[2021-11-16] MEDS: NS IV 1000 ML 1,000 ML IV SCH (09:03)
--- NOTE | 2021-11-16 11:16 | Progress Note - Cardiology ---
Cardiology SOAP Progress Note Subjective: No cp or palp or syncope Hip pain persistent No n/v/d No shortness of breath Objective: I&O/Vital Signs 11/16/21 11/16/21 11/16/21 11/16/21 04:14 07:00 07:07 08:00 Temp 36.1 36.9 Pulse 56 59 Resp 18 18 B/P (MAP) 135/64 (87) 153/79 (103) Pulse Ox 93 95 97 O2 Delivery Nasal Cannula Nasal Cannula Nasal Cannula Nasal Cannula O2 Flow Rate 3.00 3.00 3.00 11/16/21 10:15 Pulse Ox 98 O2 Delivery Nasal Cannula O2 Flow Rate 3.00 11/16/21 00:00 Intake Total 540 ml Output Total 925 ml Balance -385 ml Weight (Pounds): 215 Weight (Ounces): 0.0 Weight (Calculated Kilograms): 97.337782 Constitutional: AAO x 3, well-developed, well-nourished Respiratory: No accessory muscle use; other (fair air entry, diminished at the bases) Cardiovascular: regular rate-rhythm, S1 and S2, systolic murmur (soft JULIUS at card basee) Gastrointestional: No tender; soft; No guarding, No rebound; audible bowel sounds Extremities: other (multiple contractures at the finger joints of both hand and some swelling of joints); No clubbing, No cyanosis, No significant edema Neurologic/Psychiatric: oriented x 3, other (moves all limbs equally) Skin: No rash on exposed areas, No ulcerations on exposed areas Results/Procedures: Labs Laboratory Tests 11/15/21 12:22: White Blood Count 13.5H, Red Blood Count 3.44L, Hemoglobin 9.5L, Hematocrit 30L, Mean Corpuscular Volume 88, Mean Corpuscular Hemoglobin 28, Mean Corpuscular Hemoglobin Concent 32, Red Cell Distribution Width 16.9H, Platelet Count 283, Mean Platelet Volume 10.1, Immature Granulocyte % (Auto) 0, Neutrophils (%) (Auto) 82H, Lymphocytes (%) (Auto) 8L, Monocytes (%) (Auto) 5, Eosinophils (%) (Auto) 4, Basophils (%) (Auto) 0, Neutrophils # (Auto) 11.2H, Lymphocytes # (Auto) 1.0, Monocytes # (Auto) 0.7, Eosinophils # (Auto) 0.6H, Basophils # (Auto) 0.0, Immature Granulocyte # (Auto) 0.1, Prothrombin Time 15.8H, INR Comment 1.2, Sodium Level 138, Potassium Level 3.7, Chloride Level 94L, Carbon Dioxide Level 30, Anion Gap 14, Blood Urea Nitrogen 57H, Creatinine 2.37H, Ayde mat Glomerular Filtration Rate 27, BUN/Creatinine Ratio 24, Glucose Level 99, Calcium Level 9.1, Corrected Calcium 9.3, Total Bilirubin 0.6, Aspartate Amino Transf (AST/SGOT) 23, Alanine Aminotransferase (ALT/SGPT) 19, Alkaline Phosphatase 82, Total Protein 7.5, Albumin 3.8, Procalcitonin 0.60H 11/15/21 13:10: Urine Color YELLOW, Urine Clarity CLEAR, Urine pH 6.0, Urine Specific [place] 1.010L, Urine Protein NEGATIVE, Urine Glucose (UA) NEGATIVE, Urine Ketones NEGATIVE, Urine Nitrite NEGATIVE, Urine Bilirubin NEGATIVE, Urine Urobilinogen 0.2, Urine Leukocyte Esterase NEGATIVE, Urine RBC (Auto) TRACE-IH, Urine RBC RARE, Urine WBC NONE, Urine Squamous Epithelial Cells NONE, Urine Crystals NONE, Urine Bacteria NEGATIVE, Urine Casts NONE, Urine Mucus NEGATIVE, Urine Culture Indicated NO 11/15/21 14:18: Lactic Acid Level 2.74*H, Influenza Type A (RT-PCR) Not Detected, Influenza Type B (RT-PCR) Not Detected, SARS-CoV-2 RNA (RT-PCR) Not Detected 11/15/21 15:53: Lactic Acid Level 0.82 11/16/21 05:48: White Blood Count 10.6, Red Blood Count 3.00L, Hemoglobin 8.2L, Hematocrit 26L, Mean Corpuscular Volume 86, Mean Corpuscular Hemoglobin 27, Mean Corpuscular Hemoglobin Concent 32, Red Cell Distribution Width 17.1H, Platelet Count 238, Mean Platelet Volume 9.8, Immature Granulocyte % (Auto) 1, Neutrophils (%) (Auto) 81H, Lymphocytes (%) (Auto) 7L, Monocytes (%) (Auto) 6, Eosinophils (%) (Auto) 5, Basophils (%) (Auto) 0, Neutrophils # (Auto) 8.6H, Lymphocytes # (Auto) 0.8L, Monocytes # (Auto) 0.6, Eosinophils # (Auto) 0.6H, Basophils # (Auto) 0.0, Immature Granulocyte # (Auto) 0.1, Neutrophils % (Manual) 79, Lymphocytes % (Manual) 9, Monocytes % (Manual) 5, Eosinophils % (Manual) 7, Hypochromasia SLIGHT, Anisocytosis SLIGHT, Sodium Level 138, Potassium Level 3.6, Chloride Level 97L, Carbon Dioxide Level 29, Anion Gap 12, Blood Urea Nitrogen 52H, Creatinine 1.97H, Estimat Glomerular Filtration Rate 33, BUN/Creatinine Ratio 26, Glucose Level 89, Calcium Level 8.6, Corrected Calcium 9.2, Total Bilirubin 0.6, Aspartate Amino Transf (AST/SGOT) 20, Alanine Aminotransferase (ALT/SGPT) 15, Alkaline Phosphatase 62, Total Protein 6.5, Albumin 3.2 Microbiology 11/15/21 Blood Culture - Preliminary, Resulted No growth Laboratory Tests 11/15/21 12:22 11/16/21 05:48 A/P: Assessment: S/P non-syncopal fall resulting in a left hip fracture - Cardiac risk for hip surgery is estimated to be intermediate Sepsis - likely secondary to pneumonia - CT chest & abd on 11/15/21: Bilateral pleural effusions and airspace infiltrates in the right upper and right lower lobe and right middle lobe which could represent pulmonary contusions or pneumonia. There is some atelectasis in the left lower lobe and left perihilar region. It also showed a large hiatal hernia, gallbladder sludge, left nonobstructing renal calculus and left renal cyst. Abdominal aortic aneurysm measuring 4 cm, seen on abd CT of 11/15/21 Coronary artery disease, - History of cardiac catheterization done in September [address] Molina showing mild to moderate disease in the LAD, FFR was done and it was nonobstructive disease. 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 Joseph showing normal LV size, EF 50 to 55%, dilated left atrium, calcified mitral valve with mild mitral regurgitation, mild aortic regurgitation, moderate tricuspid regurgitation, severe pulmonary hypertension with PA pressure of 60 to 65 mmHg. Paroxysmal atrial fibrillation with sinus node dysfunction - ILR implanted on November 03, 2019, no significant episode of atrial fibrillation were detected - followed by Dr. Joseph - Intolerant to BB d/t bradycardia Pulmonary HTN - PASP 60-65 mmhg per echocardiogram of August [address] Joseph History of dizziness and lightheadedness near syncope. Chronic diastolic CHF - clinically compensated HLD COPD - oxygen dependent Chronic kidney disease stage 4 Chronic back and joint pain Plan: * Dr Sims is managing patient's hospitalization. We recommend DVT prophylaxis and to please resume antiplatelet therapy with aspirin and oral anticoag with apixaban as soon as possible after surgery * Monitor labs JAYSON GUTIERREZ MD FACP FAC CCDS Nov 16, 2021 11:16
[2021-11-16] MEDS ORDERED: ACETAMINOPHEN PO PRN (11:17)
[2021-11-16] MEDS ORDERED: BISACODYL 5 MG (DULCOLAX) TABLET PO PRN (11:30)
[2021-11-16] MEDS ORDERED: busPIRone 5 MG (BUSPAR) TAB PO PRN (11:30)
[2021-11-16] MEDS ORDERED: RT-ALBUTEROL SULF 2.5 MG/3 ML PRE-MIX VIAL IH PRN (11:30)
--- NOTE | 2021-11-16 11:32 | History & Physical-Hospitalist ---
History of Present Illness HPI/Chief Complaint This is a 76-year-old white male resident of [facility]. He thinks that he had both an oxycodone and hydrocodone and a Xanax before going to bed last night which made him very unstable on his feet. He says he fell striking his left hip and in fact does have a displaced intertrochanteric femoral neck fracture. The patient has been maintained on Eliquis for paroxysmal atrial fibrillation and this is being held so that he is surgery can be done under spinal anesthesia. Surgery is being planned for day after tomorrow. Appreciate Ortho and cardiology consultations. At the time of my interview the patient is awake and alert and other than complaining of some left hip pain and chronic back pain he seems to be in fair spirits Source: patient, old records Exam Limitations: no limitations Date Seen 11/16/21 Time Seen by a Provider: 11:00 Attending Physician Kayleigh Wilkins MD PCP Gem Yepez MD Referring Physician Date of Admission Nov 15, 2021 at 14:34 Home Medications & Allergies Home Medications Reviewed patient Home Medication Reconciliation performed by pharmacy medication reconciliations refrigerator repair technician and/or nursing. Patients Allergies have been reviewed. Allergies Allergies Coded Allergies Sulfa (Sulfonamide Antibiotics) (Verified Allergy, Unknown, 10/04/19) Past [id number] Hx Patient Social History Marrital Status: Employed/Student: retired Smoking Status: Former Smoker Use of E-Cig and/or Vaping dev: No Substance use?: No Alcohol Use?: Yes Alcohol Frequency: Daily Pt feels they are or have been: No Immunizations Up To Date Date of Influenza Vaccine: Aug 30, 2021 First/Initial COVID19 Vaccinat: UNSURE OF DATE Second COVID19 Vaccination Trung: UNSURE OF DATE. Tetanus Booster (TDap): Unknown Hepatitis A: No Hepatitis B: No PED Vaccines UTD: No Date of Pneumonia Vaccine: Aug 30, 2019 Seasonal Allergies Seasonal Allergies: Yes Current Status Advance Directives: Yes Advance Directive Location: Scanned into EMR Communicates: Verbally Primary Language: Vincentian Preferred Spoken Language: Vincentian Is interpretation needed?: No Implanted or Applied Medical D: None Past Medical History Surgeries: Appendectomy, Cardiac, Joint Replacement (Knees x3), Orthopedic, Tonsillectomy COPD Currently Using CPAP: No Currently Using BIPAP: No Atrial Fibrillation, Chronic Edema/Swelling, Coronary Artery Disease, Hypertension, Palpitations, Valvular Heart Disease Degenerate Disk Disease, Arthritis, Chronic Back Pain Anxiety Blood Disorders: No Adverse Reaction/Blood Tranf: No Family Medical History Asbestosis FH: CABG (coronary artery bypass surgery) 19 FATHER FH: breast cancer 19 MOTHER FH: uterine cancer 19 MOTHER Hypertension 19 FATHER Heart Disease, Cancer, Hypertension SOCIAL HISTORY:-DRINKS AT LEAST A 6 PACK A DAY-SMOKES MARIJUANA DAILY SINCE THE S-SMOKES 1 PPD SINCE AGE 17PAST SURGICAL HISTORY: -KNEE REPLACEMENTS X 3--2 ON LEFT, 1 ON RIGHT-RIGHT SHOULDER SURGERY X [id number] CATH 10/04/19--MODERATE DISEASE IN LAD, NO INTERVENTIONLONG HISTORY OF NON-COMPLIANCE IN ALL ASPECTS OF CARE Review of Systems Constitutional: see HPI, weakness EENTM: no symptoms reported Respiratory: dyspnea on exertion Cardiovascular: no symptoms reported Gastrointestinal: no symptoms reported Genitourinary: no symptoms reported Musculoskeletal: back pain, joint pain Skin: no symptoms reported Psychiatric/Neurological: Anxiety Physical Exam Physical Exam Vital Signs Vital Signs - First Documented 11/15/21 11/15/21 11/15/21 12:20 13:46 22:24 Temp 36.0 Pulse 79 Resp 18 B/P (MAP) 154/83 (106) Pulse Ox 92 O2 Delivery Room Air O2 Flow Rate 2.00 FiO2 21 Capillary Refill : Less Than 3 Seconds Height, Weight, BMI Height: 5'9.00" Weight: 215lbs. 0.0oz. 97.473451ck; 27.03 BMI Method:Stated General Appearance: Chronically ill HEENT: Normal ENT Inspection Neck: Limited Range of Motion Respiratory: Lungs Clear, Normal Breath Sounds, No Accessory Muscle Use, No Respiratory Distress Cardiovascular: Regular Rate, Rhythm, Normal Peripheral Pulses, Systolic Murmur Gastrointestinal: Normal Bowel Sounds, No Organomegaly, Non Tender, Soft Rectal: Deferred Neurologic/Psychiatric: Alert, Oriented x3, Normal Mood/Affect Results Results/Procedures Labs Laboratory Tests 11/15/21 12:22 11/16/21 05:48 Patient resulted labs reviewed. Imaging: Reviewed Imaging Report Assessment/Plan Admission Diagnosis Left displaced femoral neck fracture 1 blood culture with gram-positive rods probably bacillus-of questionable significance Pneumonia on cefepime and Zithromax, may be pulmonary contusion-monitor for decompensation Chronic renal failure Atrial fibrillation COPD O2 dependent Anemia secondary to blood loss from hip fracture -will recheck Pulmonary Hypertension Diastolic congestive failure-compensated currently 4 cm abdominal aneurysm- incidentally noted on CT Plan to hold the Eliquis use Lovenox for DVT prophylaxis and proceed with surgery as soon as possible as benefits outweigh risks for oil heaterman survival Admission Status: Inpatient Order (span 2 midnights) Reason for Inpatient Admission: Because of anticoagulation patient will require delay of surgical intervention and then will require postop care for approximately 2 days Clinical Quality Measures DVT/VTE Risk/Contraindication: Contraindications-Pharm: Other *list below* Other: surgery Copy Copies To 1: GEM YEPEZ MD, KATHLEEN M MD Nov 16, 2021 11:32
[2021-11-16 12:00] VITALS: BP 134/73
[2021-11-16] MEDS: ENOXAPARIN 40 MG/0.4 ML (LOVENOX) SYR SC SCH (12:54)
[2021-11-16 15:09] VITALS: BP 147/75
[2021-11-16] MEDS ORDERED: NS (IVPB) 0 ML ONE (16:23)
[2021-11-16] MEDS: morphine INJ 4 MG/ML 1 ML (VIAL/SYRINGE) IV PRN (16:32)
[2021-11-16] MEDS: AZITHROMYCIN INJECTION 500 MG in NS (IVPB) 250 ML IV SCH (17:35)
[2021-11-16 20:00] VITALS: BP 146/70
[2021-11-16] MEDS: AMIODARONE 200 MG (CORDARONE) TAB PO SCH (20:18)
[2021-11-17 00:57] VITALS: BP 137/74
[2021-11-17] MEDS: NS IV 1000 ML 1,000 ML IV SCH ×2 (02:46→16:44)
[2021-11-17] MEDS: CEFEPIME INJECTION 1,000 MG in NS (IVPB) 50 ML IV SCH ×2 (03:19→16:44)
[2021-11-17 04:00] VITALS: BP 135/71
[2021-11-17 06:00] LABS: BASOPHILS % (AUTO) 0 % (0-10); EOSINOPHILS # (AUTO) 0.1 10^3/uL (0.0-0.3); EOSINOPHILS % (AUTO) 1 % (0-10); HEMATOCRIT 24 % (40-54); HEMOGLOBIN 7.7 g/dL (13.3-17.7); LYMPHOCYTES # (AUTO) 0.8 10^3/uL (1.0-4.0); LYMPHOCYTES % (AUTO) 8 % (12-44); MEAN CORPUSCULAR HEMOGLOBIN 27 pg (25-34); MEAN CORPUSCULAR HGB CONC 32 g/dL (32-36); MEAN CORPUSCULAR VOLUME 87 fL (80-99); MEAN PLATELET VOLUME 11.2 fL (9.0-12.2); MONOCYTES # (AUTO) 1.1 10^3/uL (0.0-1.0); MONOCYTES % (AUTO) 10 % (0-12); NEUTROPHILS # (AUTO) 8.6 10^3/uL (1.8-7.8); NEUTROPHILS % (AUTO) 81 % (42-75); PLATELET COUNT 240 10^3/uL (130-400); WHITE BLOOD COUNT 10.6 10^3/uL (4.3-11.0)
[2021-11-17 06:23] LABS: ALBUMIN 2.9 GM/DL (3.2-4.5); POTASSIUM 3.5 MMOL/L (3.6-5.0)
[2021-11-17 06:24] LABS: INR 1.2 (0.8-1.4); PROTHROMBIN TIME PATIENT 16.1 SEC (12.2-14.7)
[2021-11-17 06:25] LABS: CALCIUM 8.2 MG/DL (8.5-10.1)
[2021-11-17 06:28] LABS: BILIRUBIN,TOTAL 0.6 MG/DL (0.1-1.0)
[2021-11-17 06:29] LABS: CREATININE SERUM 1.47 MG/DL (0.60-1.30)
[2021-11-17 08:00] VITALS: BP 151/74
[2021-11-17] MEDS: RT-ALBUTEROL SULF 2.5 MG/3 ML PRE-MIX VIAL INH SCH ×4 (08:09→18:44)
[2021-11-17] MEDS: dilTIAZem120 MG (CARDIZEM CD) CAP PO SCH (09:25)
[2021-11-17] MEDS: polyethylene glycoL POWDER 17 GM (MIRALAX) PACK PO SCH ×2 (09:25→20:34)
[2021-11-17] MEDS: AMIODARONE 200 MG (CORDARONE) TAB PO SCH ×2 (09:25→20:46)
[2021-11-17] MEDS: amLODIPine 5 MG (NORVASC) TAB PO SCH (09:25)
[2021-11-17] MEDS: SENNA W/DOCUSATE (SENOKOT S) TABLET PO SCH ×2 (09:25→20:34)
--- NOTE | 2021-11-17 10:10 | Progress Note - Hospitalist ---
Subjective HPI/CC On Admission Date Seen by Provider: Nov 17, 2021 Time Seen by Provider: 09:15 This is a 76-year-old white male resident of [facility] [place]. He thinks that he had both an oxycodone and hydrocodone and a Xanax before going to bed last night which made him very unstable on his feet. He says he fell striking his left hip and in fact does have a displaced intertrochanteric femoral neck fracture. The patient has been maintained on Eliquis for paroxysmal atrial fibrillation and this is being held so that he is surgery can be done under spinal anesthesia. Surgery is being planned for day after tomorrow. Appreciate Ortho and cardiology consultations. At the time of my interview the patient is awake and alert and other than complaining of some left hip pain and chronic back pain he seems to be in fair spirits Subjective/Events-last exam Complains primarily of hip and back pain. In addition he would like to eat but has been placed n.p.o. for surgery. However the surgery is not till tomorrow from my understanding. Hemoglobin is dropped to 7.7. Patient denies have any chest pain or shortness of breath Review of Systems Musculoskeletal: back pain, leg pain Focused Exam Lactate Level 11/15/21 14:18: Lactic Acid Level 2.74*H 11/15/21 15:53: Lactic Acid Level 0.82 Objective Exam Vital Signs Vital Signs Date Time Temp Pulse Resp B/P (MAP) Pulse Ox O2 Delivery O2 Flow Rate FiO2 11/17/21 08:11 95 Nasal Cannula 2.00 11/17/21 08:00 37.3 60 18 151/74 (99) 11/15/21 22:24 21 Capillary Refill : Less Than 3 Seconds General Appearance: Other (Uncomfortable) HEENT: Normal ENT Inspection Neck: Limited Range of Motion Respiratory: Lungs Clear, Normal Breath Sounds, No Accessory Muscle Use, No Respiratory Distress Cardiovascular: Regular Rate, Rhythm, No Gallop, Normal Peripheral Pulses, Systolic Murmur Gastrointestinal: Normal Bowel Sounds, Non Tender, Soft Rectal: Deferred Extremity: No Pedal Edema Neurologic/Psychiatric: Alert, Oriented x3, pediatric physician assistant II-XII Norm as Tested Skin: Pallor Results/Procedures Lab Laboratory Tests 11/17/21 05:13 Patient resulted labs reviewed. Imaging: Reviewed Imaging Report Assessment/Plan Assessment and Plan Assess & Plan/Chief Complaint Sepsis secondary to pneumonia with fever up to 38 last night. Day #2 Rocephin and Zithromax Left displaced femoral neck fracture-scheduled for surgery tomorrow Chronic A. fib-off Eliquis on Lovenox for probable epidural COPD Coronary artery disease Anemia secondary to acute blood loss from femoral neck fracture Chronic back pain History of constipation on MiraLAX Mild confusion at risk for delirium postop Chronic renal insufficiency stable Pulmonary hypertension History of diastolic congestive failure-watch fluid balance Clinical Quality Measures DVT/VTE Risk/Contraindication: Contraindications-Pharm: Other *list below* Other: surgery BENJAMIN MOSER MD Nov 17, 2021 10:10
[2021-11-17] MEDS: ACETAMINOPHEN 325 MG TABLET PO PRN ×2 (11:14→17:38)
[2021-11-17] MEDS: ENOXAPARIN 40 MG/0.4 ML (LOVENOX) SYR SC SCH (11:15)
[2021-11-17] MEDS: morphine INJ 4 MG/ML 1 ML (VIAL/SYRINGE) IV PRN ×3 (11:15→20:46)
[2021-11-17 12:00] VITALS: BP 170/83
--- NOTE | 2021-11-17 12:58 | Progress Note - Cardiology ---
Cardiology SOAP Progress Note Subjective: No cp or palp or syncope or shortness of breath at rest No n/v/d Some gen malaise and weakness present Notes discomfort of the fractured hip Objective: I&O/Vital Signs 11/17/21 11/17/21 11/17/21 11/17/21 00:57 01:00 04:00 07:00 Temp 38.1 37.9 Pulse 64 63 62 61 Resp 19 20 B/P (MAP) 137/74 (95) 135/71 (92) Pulse Ox 96 98 O2 Delivery Nasal Cannula Nasal Cannula O2 Flow Rate 3.00 3.00 3.00 11/17/21 11/17/21 11/17/21 11/17/21 08:00 08:00 08:11 11:47 Temp 37.3 Pulse 60 Resp 18 B/P (MAP) 151/74 (99) Pulse Ox 96 95 95 O2 Delivery Nasal Cannula Nasal Cannula Nasal Cannula Nasal Cannula O2 Flow Rate 3.00 2.00 2.00 2.00 11/17/21 11/17/21 12:00 12:37 Temp 37.0 Pulse 62 67 Resp 18 B/P (MAP) 170/83 (112) Pulse Ox 97 O2 Delivery Nasal Cannula O2 Flow Rate 3.00 11/17/21 00:00 Intake Total 1550 ml Output Total 1350 ml Balance 200 ml Weight (Pounds): 215 Weight (Ounces): 0.0 Weight (Calculated Kilograms): 97.349445 Constitutional: AAO x 3, well-developed, well-nourished Respiratory: No accessory muscle use; other (fair air entry, diminished at the bases) Cardiovascular: regular rate-rhythm, S1 and S2, systolic murmur (soft JULIUS at card basee) Gastrointestional: No tender; soft; No guarding, No rebound; audible bowel sounds Extremities: other (multiple contractures at the finger joints of both hand and some swelling of joints); No clubbing, No cyanosis, No significant edema Neurologic/Psychiatric: oriented x 3, other (moves all limbs equally) Skin: No rash on exposed areas, No ulcerations on exposed areas Results/Procedures: Labs Laboratory Tests 11/17/21 05:13: White Blood Count 10.6, Red Blood Count 2.82L, Hemoglobin 7.7L, Hematocrit 24L, Mean Corpuscular Volume 87, Mean Corpuscular Hemoglobin 27, Mean Corpuscular Hemoglobin Concent 32, Red Cell Distribution Width 17.0H, Platelet Count 240, Mean Platelet Volume 11.2, Immature Granulocyte % (Auto) 1, Neutrophils (%) (Auto) 81H, Lymphocytes (%) (Auto) 8L, Monocytes (%) (Auto) 10, Eosinophils (%) (Auto) 1, Basophils (%) (Auto) 0, Neutrophils # (Auto) 8.6H, Lymphocytes # (Auto) 0.8L, Monocytes # (Auto) 1.1H, Eosinophils # (Auto) 0.1, Basophils # (Auto) 0.0, Immature Granulocyte # (Auto) 0.1, Prothrombin Time 16.1H, INR Com ment 1.2, Activated Partial Thromboplast Time 48H, Sodium Level 135, Potassium Level 3.5L, Chloride Level 99, Carbon Dioxide Level 26, Anion Gap 10, Blood Urea Nitrogen 42H, Creatinine 1.47H, Estimat Glomerular Filtration Rate 47, BUN/Creatinine Ratio 29, Glucose Level 101, Calcium Level 8.2L, Corrected Calcium 9.1, Total Bilirubin 0.6, Aspartate Amino Transf (AST/SGOT) 18, Alanine Aminotransferase (ALT/SGPT) 9, Alkaline Phosphatase 59, Total Protein 6.0L, Al bumin 2.9L Microbiology 11/16/21 MRSA Screen - Final, Complete MRSA not isolated 11/15/21 Blood Culture - Preliminary, Resulted No growth Laboratory Tests 11/16/21 05:48 11/17/21 05:13 A/P: Assessment: S/P non-syncopal fall resulting in a left hip fracture - Cardiac risk for hip surgery is estimated to be intermediate Suspected pneumonia - CT chest & abd on 11/15/21: Bilateral pleural effusions and airspace infiltrates in the right upper and right lower lobe and right middle lobe which could represent pulmonary contusions or pneumonia. There is some atelectasis in the left lower lobe and left perihilar region. It also showed a large hiatal hernia, gallbladder sludge, left nonobstructing renal calculus and left renal cyst. Abdominal aortic aneurysm measuring 4 cm, seen on abd CT of 11/15/21 Coronary artery disease, - History of cardiac catheterization done in September [address] Molina showing mild to moderate disease in the LAD, FFR was done and it was nonobstructive disease. 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 Joseph showing normal LV size, EF 50 to 55%, dilated left atrium, calcified mitral valve with mild mitral regurgitation, mild aortic regurgitation, moderate tricuspid regurgitation, severe pulmonary hypertension with PA pressure of 60 to 65 mmHg. Paroxysmal atrial fibrillation with sinus node dysfunction - ILR implanted on November 03, 2019, no significant episode of atrial fibrillation were detected - followed by Dr. Joseph - Intolerant to BB d/t bradycardia Pulmonary HTN - PASP 60-65 mmhg per echocardiogram of August [address] Joseph History of dizziness and lightheadedness near syncope. Chronic diastolic CHF - clinically compensated HLD COPD - oxygen dependent Chronic kidney disease stage 4 Chronic back and joint pain Plan: * Dr Sims is managing patient's hospitalization. We recommend DVT prophylaxis and to please resume antiplatelet therapy with aspirin and oral anticoag with apixaban as soon as possible after surgery * Replenguero rivera * Monitor labs JAYSON GUTIERREZ MD FACP FAC CCDS Nov 17, 2021 12:58
[2021-11-17 15:30] VITALS: BP 137/63
[2021-11-17] MEDS: AZITHROMYCIN INJECTION 500 MG in NS (IVPB) 250 ML IV SCH (17:30)
[2021-11-17 20:00] VITALS: BP 158/76
[2021-11-17] MEDS: MELATONIN 3 MG TABLET PO PRN (20:46)
[2021-11-17] MEDS: ALPRAZolam 0.25 MG (XANAX) TAB PO PRN (22:48)
[2021-11-18] VITALS (14 sets, daily range): BP systolic 105–166; BP diastolic 61–75
[2021-11-18] MEDS: morphine INJ 4 MG/ML 1 ML (VIAL/SYRINGE) IV PRN ×5 (01:05→20:32)
[2021-11-18] MEDS: CEFEPIME INJECTION 1,000 MG in NS (IVPB) 50 ML IV SCH ×2 (05:25→15:42)
[2021-11-18 06:18] LABS: BASOPHILS % (AUTO) 0 % (0-10); EOSINOPHILS # (AUTO) 0.2 10^3/uL (0.0-0.3); EOSINOPHILS % (AUTO) 1 % (0-10); HEMATOCRIT 26 % (40-54); HEMOGLOBIN 8.3 g/dL (13.3-17.7); LYMPHOCYTES # (AUTO) 0.7 10^3/uL (1.0-4.0); LYMPHOCYTES % (AUTO) 6 % (12-44); MEAN CORPUSCULAR HEMOGLOBIN 28 pg (25-34); MEAN CORPUSCULAR HGB CONC 32 g/dL (32-36); MEAN CORPUSCULAR VOLUME 88 fL (80-99); MEAN PLATELET VOLUME 10.3 fL (9.0-12.2); MONOCYTES % (AUTO) 9 % (0-12); NEUTROPHILS # (AUTO) 9.1 10^3/uL (1.8-7.8); NEUTROPHILS % (AUTO) 83 % (42-75); PLATELET COUNT 213 10^3/uL (130-400)
[2021-11-18 06:31] LABS: ALBUMIN 2.9 GM/DL (3.2-4.5); BILIRUBIN,TOTAL 0.5 MG/DL (0.1-1.0); CALCIUM 8.7 MG/DL (8.5-10.1); CREATININE SERUM 1.22 MG/DL (0.60-1.30); INR 1.3 (0.8-1.4); POTASSIUM 3.5 MMOL/L (3.6-5.0); PROTHROMBIN TIME PATIENT 16.3 SEC (12.2-14.7); TOTAL PROTEIN 6.3 GM/DL (6.4-8.2)
[2021-11-18] MEDS: RT-ALBUTEROL SULF 2.5 MG/3 ML PRE-MIX VIAL INH SCH ×2 (07:23→10:19)
[2021-11-18] MEDS: polyethylene glycoL POWDER 17 GM (MIRALAX) PACK PO SCH ×2 (07:27→20:31)
[2021-11-18] MEDS: SENNA W/DOCUSATE (SENOKOT S) TABLET PO SCH ×2 (07:27→20:31)
[2021-11-18] MEDS: POTASSIUM CL 10MEQ/50ML IVPB 50 ML IV SCH ×6 (07:38→15:42)
[2021-11-18] MEDS: NS IV 1000 ML 1,000 ML IV SCH ×2 (07:38→15:28)
[2021-11-18] MEDS ORDERED: ceFAZolin INJECTION 1,000 MG VIAL IV ONE (09:00)
[2021-11-18] MEDS ORDERED: ceFAZolin 2 GM IV Premixed 0 ML ONE (09:16)
[2021-11-18] MEDS ORDERED: BUPIVACAINE 0.25% 30 ML (SENSORCAINE) VIAL ONE (09:18)
[2021-11-18] MEDS ORDERED: MIDAZOLAM 2 MG/2 ML (VERSED) VIAL ONE (09:19)
[2021-11-18] MEDS: LACTATED RINGERS 1,000 ML IV PRN ×2 (09:22→12:21)
[2021-11-18] MEDS ORDERED: SODIUM CHLORIDE 0.9% IRRIGATIO 150 ML, TRANEXAMIC ACID INJECTION 3,000 MG IR ONE ×2 (09:45)
[2021-11-18] MEDS ORDERED: BUPIVACAINE 0.5% 30 ML (SENSORCAINE) VIAL ONE (10:15)
[2021-11-18] MEDS ORDERED: PROPOFOL INJECTION 50 ML IV ONE (10:15)
[2021-11-18] MEDS ORDERED: SNN187T PO (12:08)
[2021-11-18] MEDS ORDERED: METO5TAB6 PO (12:08)
[2021-11-18] MEDS ORDERED: MULT-1136 PO (12:08)
[2021-11-18] MEDS ORDERED: MELA3TAB39 PO (12:08)
[2021-11-18] MEDS ORDERED: TIOT4MIS2 INH (12:08)
[2021-11-18] MEDS ORDERED: LEVO25TA5 PO (12:08)
[2021-11-18] MEDS ORDERED: POLY17PO6 PO (12:08)
[2021-11-18] MEDS ORDERED: DOCU100C37 PO (12:08)
[2021-11-18] MEDS ORDERED: ACHD5005 PO (12:08)
[2021-11-18] MEDS ORDERED: OXYC18CA PO (12:08)
[2021-11-18] MEDS ORDERED: GABA300C PO (12:08)
[2021-11-18] MEDS ORDERED: FURO40TA4 PO (12:08)
[2021-11-18] MEDS ORDERED: ALPR0.254 PO ×2 (12:08)
--- NOTE | 2021-11-18 12:24 | Operative Report - Ortho ---
Operative Report Surgeon (s)/Director Transition (s) Surgeon GARCIA QUESADA MD Director Transition n/a Pre-Operative Diagnosis Left Femoral Neck Fracture Post-Operative Diagnosis same Operative Report Date of Procedure: Nov 18, 2021 Name of Procedure Performed: Prosthetic Replacement of Left Femoral Neck Fracture Description & Findings After obtaining informed consent and marking the patient, patient did receive IV antibiotics. Patient was taken to the operating room and spinal anesthesia was induced. Patient was placed in the lateral decubitus position with the left side up. Left lower extremity was prepped and draped in the usual sterile fashion. Surgical timeout was taken. A posterolateral approach was utilized. External rotators and capsule were taken down in one layer. Fracture hematoma was evacuated. Femoral head was removed from the acetabulum and sized. The fracture site on the femoral neck was freshened with a saw. A 48 mm bipolar component was trialed and found to have good fit. Attention was turned to the femur, [employer] cutter osteotome was used to remove the remainder of the femoral neck near the greater trochanter. Canal finder was inserted followed by the lateralizing reamer. Sequential broaching was began with a 2 and broaching to a 6. The 6 had good metaphyseal fit and fill. A -4 mm head and a 48 mm bipolar component were put on a 127 neck trial. This was located. Found to have grossly equal leg lengths. Stable in position of sleep and flexion with internal rotation this was accepted. Hip was atraumatically dislocated and the trial components were removed. The femoral canal and acetabulum were irrigated with pulsatile lavage. Femoral canal was prepared for cement Cement was placed into the femoral canal and a size 6 Accolade C stem with a 127 neck was placed with the collar resting on the calcar. Cement was allowed to set. A -4 mm head was impacted onto the [place] taper of the stem. A 48 mm bipolar component was placed. Hip was located and once again found to be stable. Further irrigation was performed. Capsular layer was repaired with #2 Fiberwire. The fascial layer was closed with 0 ethibond. The subcutaneous layer was closed with 2-0 vicryl and the skin was closed with ivy. Incision site was dressed with xeroform, 4x4s, ABD, and tape. Patient was placed in abduction pillow postoperatively and was transferred to hospital bed without incident. Tolerated the procedure well and was stable to recovery room. Anesthesia Type Spinal plus regional Estimated Blood Loss 150 mL Specimen(s) collected/removed Femoral head sent for pathology GARCIA QUESADA MD Nov 18, 2021 12:24
[2021-11-18] MEDS ORDERED: morphine INJ 10 MG/ML 1ML (SYR OR VIAL) IVP ONE (12:30)
--- NOTE | 2021-11-18 12:56 | Diagnostic Imaging Report ---
INDICATION: Left hip fracture. Postop. COMPARISON: 11/15/2021. FINDINGS: Two frontal radiographic views of the pelvis were obtained. There are expected post surgical changes of interval left hip hemiarthroplasty . There is appropriate anatomic alignment of the femoral component in relation to the acetabulum. The stem of the femoral component is located centrally in the medullary cavity. There is no periprosthetic fracture. No acute fracture or dislocation is identified. There is a small amount of subcutaneous emphysema in the surrounding soft tissues. No unexpected radiopaque foreign bodies identified. IMPRESSION: Expected post surgical changes of interval left hip hemiarthroplasty . No unexpected radiopaque foreign body identified. Dictated by: Dictated on workstation # [id number]
[2021-11-18] MEDS: AMIODARONE 200 MG (CORDARONE) TAB PO SCH ×2 (13:43→20:31)
[2021-11-18] MEDS: dilTIAZem120 MG (CARDIZEM CD) CAP PO SCH (13:43)
[2021-11-18] MEDS: amLODIPine 5 MG (NORVASC) TAB PO SCH (13:43)
[2021-11-18] MEDS ORDERED: ceFAZolin 2 GM IV Premixed 50 ML IV SCH (14:00)
--- NOTE | 2021-11-18 15:16 | Physical Therapy Evaluation ---
PT Evaluation-General Medical Diagnosis Admission Date Nov 15, 2021 at 14:34 Medical Diagnosis: Left femur fracture Onset Date: Nov 16, 2021 Therapy Diagnosis Therapy Diagnosis: Gait Deficit, Strength deficit Height/Weight Height (Feet): 5 Height (Inches): 9.00 Weight (Pounds): 215 Weight (Ounces): 0.0 Precautions Precautions/Isolations: Fall Prevention, Standard Precautions, Pressure Ulcer Weight Bear Status Left Lower Extremity: Left Weight Bearing/Tolerated Referral Physician: Dr. Stallworth Reason for Referral: Evaluation/Treatment Medical History Pertinent Medical History: Atrial Fib, COPD, Heart Failure, HTN, [place], Renal Insufficiency Social History Home: Assisted Living Current Living Status: Alone Entry Into Home: Ramp PT Steps Into Home: 0 PT Steps Inside Home: 0 Prior Prior Level of Function SCALE: Activities may be completed with or without assistive devices. 0-Wcseyhzxtx-xyisgxg completes the activity by him/herself with no assistance from a helper. 5-Set-up or Clean-up Assistance-helper sets up or cleans up; patient completes activity. [place] assists only prior to or following the activity. 4-Supervision or Touching Assistance-helper provides verbal cues and/or touching/steadying and/or contact guard assistance as patient completes activity. Assistance may be provided throughout the activity or intermittently. 3-Partial/Moderate Assistance-helper does LESS THAN HALF the effort. [place] lifts, holds or supports trunk or limbs, but provides less than half the effort. 2-Substantial/Maximal Assistance-helper does MORE THAN HALF the effort. [place] lifts or holds trunk or limbs and provides more than half the effort. 3-[place] does ALL the effort. Patient does none of the effort to complete the activity. Or, the assistance of 2 or more helpers is required for the patient to complete the activity. If activity was not attempted, code reason: 7-Patient Refused. 9-Not Applicable-not attempted and the patient did not perform the activity before the current illness, exacerbation or injury. 10-Not Attempted due to Environmental Limitations-(lack of equipment, weather restraints, etc.). 88-Not Attempted due to Medical Conditions or Safety Concerns. Bed Mobility: 6 Transfers (B,C,W/C): 6 Gait: 6 Stairs: 6 Indoor Mobility (Ambulation): Independent Stairs: Independent Prior Devices Use: Walker PT Evaluation-Current Subjective Patient reports his neck is hurting severely. Rates neck pain at 8/10 and does not rate left hip pain because "It doesn't feel bad right now." Objective Patient Orientation: Person Attachments: Oxygen, Estrella Catheter, IV ROM/Strength ROM Lower Extremities Left LE hip limited in all planes, knee and ankle appear WFLs Right LE WFLs all available planes Strength Lower Extremities Left LE N/A Right LE 3+/5 all hip, knee and ankle motions. Sensory Vision: Functional Hearing: Functional Sensation Right Lower Extremit: Intact Sensation Left Lower Extremity: Intact Transfers Roll Left to Right (QC): 1 Sit to Lying (QC): 1 Lying to Sitting/Side of Bed(Q: 1 Sit to Stand (QC): 1 Gait Does the Patient Walk?: No and Walking Goal IS indicated Mode of Locomotion: Walk Anticipated Mode of Locomotion: Walk Gait Assistive Device: FWW Wheelchair Training Does the Pt Use a Wheelchair?: No Balance Sitting Static: Poor Sitting Dynamic: Poor Standing Static: Poor Standing Dynamic: Poor Assessment/Needs Patient lying supine in bed upon PT arrival, agreeable to treatment. Patient initially refuses treatment because his neck hurt too bad. Eventually agreed to PT evaluation. Patient performs all observed bed mobility and transfers with Total dependence. Patient tolerates sitting at the edge of the bed x 5 minutes. Patient performs sit to stand with total assistance while [employer] cleans him. Patient in bed post treatment with all needs met, nursing notified, call light in hand. Rehab Potential: Fair PT Short Term Goals Short Term Goals Time Frame: Nov 29, 2021 Roll Left & Right: 3 Sit to lyin Lying to sitting on side of be: 3 Sit to stand: 3 Chair/vzm-kj-avkjc transfer: 3 Toilet transfer: 3 Walk 10 feet: 2 Walk 50 feet with two turns: 2 PT Insulation Blanket Maker Goals Care Home Goals PT Insulation Blanket Maker Goals Time Frame: Dec 27, 2021 Roll Left & Right (QC): 4 Sit to Lying (QC): 4 Lying-Sitting on Side/Bed(QC): 4 Sit to Stand (QC): 4 Chair/Tvk-np-Bwozz Xfer(QC): 4 Toilet Transfer (QC): 4 Does the Patient Walk: Yes Walk 10 feet (QC): 4 Walk 50ft with 2 Turns (QC): 4 Walk 150 ft (QC): 3 PT Plan Problem List Problem List: Activity Tolerance, Functional Strength, Safety, Balance, Gait, Transfer, Bed Mobility, ROM Treatment/Plan Treatment Plan: Continue Plan of Care Treatment Plan: Bed Mobility, Education, Functional Activity Vikas, Functional Strength, Group Therapy, Gait, Safety, Therapeutic Exercise, Transfers Treatment Duration: Nov 16, 2021 Frequency: 11 times per week Estimated Hrs Per Day: .25 hour per day Patient and/or Family Agrees t: Yes Safety Risks/Education Patient Education: Gait Training, Transfer Techniques, Reviewed Precautions, Safety Issues Teaching Recipient: Patient Teaching Methods: Demonstration, Discussion Response to Teaching: Reinforcement Needed Discharge Recommendations Target Placement Post acute placement recommended. Time/GCodes Time In: 1417 Time Out: 1447 Total Billed Treatment Time: 30 Total Billed Treatment Visit, YOLANDA Oates JOHN A PT Nov 18, 2021 15:16
[2021-11-18] MEDS: ALPRAZolam 0.25 MG (XANAX) TAB PO PRN (17:21)
[2021-11-18] MEDS: AZITHROMYCIN INJECTION 500 MG in NS (IVPB) 250 ML IV SCH (17:46)
[2021-11-18] MEDS: ceFAZolin 2 GM IV Premixed 50 ML IV SCH (19:00)
[2021-11-18] MEDS: GABAPENTIN 300 MG (NEURONTIN) CAP PO SCH (20:31)
[2021-11-18] MEDS: MELATONIN 3 MG TABLET PO PRN (20:31)
[2021-11-18] MEDS ORDERED: APIXABAN 5 MG (ELIQUIS) TABLET PO SCH (21:00)
[2021-11-18] MEDS: RT-ALBUTEROL/IPRATROPIUM 3 ML (DUONEB) VIAL INH SCH (21:35)
[2021-11-19] MEDS: RT-ALBUTEROL/IPRATROPIUM 3 ML (DUONEB) VIAL INH SCH ×4 (02:19→21:13)
[2021-11-19 03:35] VITALS: BP 140/65
[2021-11-19] MEDS: ceFAZolin 2 GM IV Premixed 50 ML IV SCH (03:50)
[2021-11-19] MEDS: CEFEPIME INJECTION 1,000 MG in NS (IVPB) 50 ML IV SCH ×2 (05:32→15:05)
[2021-11-19 05:50] LABS: HEMOGLOBIN 7.7 g/dL (13.3-17.7)
[2021-11-19 05:59] LABS: POTASSIUM 3.7 MMOL/L (3.6-5.0)
[2021-11-19 06:00] LABS: CALCIUM 8.3 MG/DL (8.5-10.1)
[2021-11-19 06:05] LABS: CREATININE SERUM 1.24 MG/DL (0.60-1.30)
[2021-11-19] MEDS: LEVOTHYROXINE 25 MCG (LEVOTHROID) TAB PO SCH (06:09)
[2021-11-19] MEDS: NS IV 1000 ML 1,000 ML IV SCH ×3 (06:09→23:36)
[2021-11-19 08:00] VITALS: BP 123/66
--- NOTE | 2021-11-19 08:19 | Progress Note - Ortho ---
Progress Note Subjective Date of Exam 11/19/21 Chief Complaint POD #1 L Hip Bipolar HPI/Events since last exam pain controlled, not able to get up to chair yesterday Review of Systems not obtained Allergies: Coded Allergies: Sulfa (Sulfonamide Antibiotics) (Verified Allergy, Unknown, 10/04/19) Home Meds Reported Medications Oxycodone Myristate (Xtampza ER) 18 Mg Cap.spr.12, 18 MG PO Q12H, CAP 11/18/21 Tiotropium [place] (Spiriva Respimat 2.5MCG/ACTUATION) 4 Gm Mist.inhal, 2 PUFF INH DAILY, EA 11/18/21 Sennosides (Senna Lax) 8.6 Mg Tablet, 8.6 MG PO DAILY PRN for CONSTIPATION-5TH LINE, TAB 11/18/21 Multivitamin (Multivitamin) 1 Each Tablet, 1 EACH PO DAILY, TAB 11/18/21 Metolazone (Metolazone) 5 Mg Tablet, 5 MG PO MO,WE,FR, TAB 11/18/21 Melatonin (Melatonin) 3 Mg Tablet, 3 MG PO HS, TAB 11/18/21 Levothyroxine Sodium (Levothyroxine Sodium) 25 Mcg Tablet, 25 MCG PO DAILY, TAB 11/18/21 Hydrocodone/Acetaminophen (Hydrocodone-Acetamin 5-325 mg) 1 Each Tablet, 1-2 EA PO Q6H PRN for PAIN-MODERATE (5-7), TAB 11/18/21 Polyethylene Glycol 3350 (Miralax) 17 Gm Powd.pack, 17 GM PO DAILY, EACH 11/18/21 Gabapentin (Neurontin) 300 Mg Capsule, 300 MG PO HS, CAP 11/18/21 Furosemide (Furosemide) 40 Mg Tablet, 40 MG PO 1200, TAB 11/18/21 Docusate Sodium (Docusate Sodium) 100 Mg Capsule, 100 MG PO BID, CAP 11/18/21 ALPRAZolam (ALPRAZolam) 0.25 Mg Tablet, 0.25 MG PO DAILY, TAB 11/18/21 ALPRAZolam (ALPRAZolam) 0.25 Mg Tablet, 0.25 MG PO Q8H PRN for ANXIETY, TAB 11/18/21 Potassium Chloride (Klor-Con 10) 10 Meq Tablet.er, 10 MEQ PO DAILY, TAB 04/09/20 Fluticasone Propion/Salmeterol ([place]ela 250-50 Inhub) 1 Each Blst.w.dev, 1 PUFF IN BID, EA 04/09/20 Furosemide (Lasix) 80 Mg Tablet, 80 MG PO DAILY, TAB 04/09/20 Albuterol Sulfate (Albuterol Sulfate) 2.5 Mg/0.5 Ml Vial.neb, 2.5 MG NEB Q6H PRN for SHORTNESS OF BREATH, EA 10/04/19 Apixaban (Eliquis) 5 Mg Tablet, 5 MG PO BID, TAB 10/04/19 Diltiazem HCl (Diltiazem 24Hr ER) 120 Mg Cap.er.24h, 120 MG PO DAILY, CAP 10/04/19 Amiodarone HCl (Amiodarone HCl) 200 Mg Tablet, 200 MG PO BID, TAB 10/04/19 Albuterol Sulfate (PROAIR HFA) 8.5 Gm Hfa.aer.ad, 2 PUFF IH Q4H PRN for SHORTNESS OF BREATH, EA 07/09/16 Enalapril Maleate (Enalapril Maleate) 20 Mg Tablet, 20 MG PO DAILY, TAB 07/09/16 Discontinued Reported Medications Bisacodyl (Dulcolax) 5 Mg Tablet.dr, 5 MG PO DAILY PRN for CONSTIPATION-4TH LINE, TAB 04/09/20 Acetaminophen (8Hr Arthritis Pain) 650 Mg Tablet.er, 650-1300 MG PO Q8H PRN for PAIN-MILD (1-4), TAB 04/09/20 Amlodipine Besylate (Amlodipine Besylate) 5 Mg Tablet, 5 MG PO DAILY, TAB 04/09/20 Buspirone HCl (Buspirone HCl) 5 Mg Tablet, 5 MG PO TID PRN for ANXIETY, TAB 04/09/20 Metoprolol Tartrate (Metoprolol Tartrate) 100 Mg Tablet, 100 MG PO BID, TAB 08/15/19 Discontinued Scripts Prednisone (Prednisone) 20 Mg Tab, 40 MG PO DAILY, #8 TAB 0 Refills Prov:EMILIANA FLOREZ MD 05/10/20 Cefdinir (Cefdinir) 300 Mg Capsule, 300 MG PO BID, #6 CAP Prov:PATRICIA REID MD 04/19/20 Metolazone (Metolazone) 5 Mg Tablet, 5 MG PO DAILY, #30 TAB Prov:PATRICIA REID MD 04/19/20 Objective Exam Left Hip: Dressing C/D/I, +DF of ankle, calf soft/NT Vital Signs Vital Signs Date Time Temp Pulse Resp B/P (MAP) Pulse Ox O2 Delivery O2 Flow Rate FiO2 11/19/21 03:35 36.6 62 20 140/65 (90) 96 Nasal Cannula 2.00 11/19/21 02:19 93 Nasal Cannula 2.00 11/19/21 01:00 59 11/18/21 23:00 36.8 60 19 124/61 (82) 94 Nasal Cannula 2.00 11/18/21 21:35 92 Nasal Cannula 2.00 11/18/21 20:30 Nasal Cannula 2.00 11/18/21 19:11 36.2 61 22 142/66 (91) 93 Nasal Cannula 2.00 11/18/21 19:00 60 11/18/21 16:27 37.2 70 19 153/72 (99) 93 Nasal Cannula 2.00 11/18/21 15:44 36.3 65 100 28 11/18/21 13:40 36.3 65 18 166/75 (105) 100 Nasal Cannula 2.00 11/18/21 13:05 Nasal Cannula 2 11/18/21 13:00 37 16 155/75 (101) 98 Nasal Cannula 2 11/18/21 12:50 20 144/73 (96) 100 Nasal Cannula 2 11/18/21 12:45 OxyMask 2 11/18/21 12:40 16 126/67 (86) 100 Nasal Cannula 2 11/18/21 12:30 17 142/70 (94) 98 Nasal Cannula 2 11/18/21 12:30 OxyMask 2 11/18/21 12:20 16 141/61 (87) 99 Nasal Cannula 2 11/18/21 12:10 OxyMask 2 11/18/21 12:10 36.7 20 105/75 (85) 100 OxyMask 2 I & O0 11/19/21 06:59 Intake Total 2833 ml Output Total 1425 ml Balance 1408 ml Lab Results Laboratory Tests 11/19/21 05:15: Hemoglobin 7.7L, Hematocrit 25L, Sodium Level 140, Potassium Level 3.7, Chloride Level 103, Carbon Dioxide Level 25, Anion Gap 12, Blood Urea Nitrogen 33H, Creatinine 1.24, Estimat Glomerular Filtration Rate 57, BUN/Creatinine Ratio 27, Glucose Level 101, Calcium Level 8.3L Microbiology 11/16/21 MRSA Screen - Final, Complete MRSA not isolated 11/15/21 Blood Culture - Preliminary, Resulted No growth Imaging Post Op AP pelvis reviewed and demonstrated cemented bipolar components to be in good position without complication Assessment and Plan Assessment L FN Fx s/p Prosthetic Replacement Problem List L FN Fx s/p Prosthetic Replacement Plan PT/OT DVT Prophylaxis Plan for swing bed when stable Final Diagonsis L FN Fx s/p Prosthetic Replacement Level of the visit: Level 3 (global postop) Clinical Quality Measures DVT/VTE Risk/Contraindication: Contraindications-Pharm: Other *list below* Other: surgery GARCIA QUESADA MD Nov 19, 2021 08:19
--- NOTE | 2021-11-19 09:43 | Anesthesia-Regional Post-Op ---
Regional Patient Condition Mental Status: Alert, Oriented x3 Circulation: Same as Pre-Op Headache: Absent Sensation: Full Recovery Motor Block: Absent Post Op Complications Complications None Follow Up Care/Instructions Patient Instructions None needed. Anesthesia/Patient Condition Patient is doing well, has no pain and no complaints, stable vital signs, no apparent adverse anesthesia problems. Denies headache or N/V. LINUS HERNANDEZ DO Nov 19, 2021 09:43
--- NOTE | 2021-11-19 10:04 | Progress Note - Cardiology ---
Cardiology SOAP Progress Note Subjective: Sitting up in bed C/O hip pain Chronic mild SOB which he feels is unchanged No c/o CP or palpitations Objective: I&O/Vital Signs 11/26/21 11/26/21 11/26/21 11/26/21 01:00 04:19 07:00 08:00 Temp 37.2 Pulse 52 55 50 Resp 20 B/P (MAP) 105/63 (77) Pulse Ox 95 O2 Delivery Nasal Cannula Nasal Cannula O2 Flow Rate 3.00 2.00 11/26/21 11/26/21 11/26/21 08:10 08:38 11:27 Temp 36.6 36.6 Pulse 51 53 Resp 20 22 B/P (MAP) 118/59 (78) 113/55 (74) Pulse Ox 95 95 96 O2 Delivery Nasal Cannula Nasal Cannula Nasal Cannula O2 Flow Rate 3.00 3.00 3.00 11/26/21 00:00 Intake Total 1498 ml Output Total 2825 ml Balance -1327 ml Weight (Pounds): 215 Weight (Ounces): 0.0 Weight (Calculated Kilograms): [id number] Constitutional: AAO x 3, well-developed, well-nourished Respiratory: No accessory muscle use; other (fair air entry, diminished at the bases) Cardiovascular: regular rate-rhythm, S1 and S2, systolic murmur (soft JULIUS at card basee) Gastrointestional: No tender; soft; No guarding, No rebound; audible bowel sounds Extremities: other (multiple contractures at the finger joints of both hand and some swelling of joints); No clubbing, No cyanosis, No significant edema Neurologic/Psychiatric: oriented x 3, other (moves all limbs equally) Skin: No rash on exposed areas, No ulcerations on exposed areas Results/Procedures: Labs Laboratory Tests 11/26/21 05:51: White Blood Count 14.5H, Red Blood Count 2.83L, Hemoglobin 7.7L, Hematocrit 25L, Mean Corpuscular Volume 88, Mean Corpuscular Hemoglobin 27, Mean Corpuscular Hemoglobin Concent 31L, Red Cell Distribution Width 16.5H, Platelet Count 380, Mean Platelet Volume 10.5, Immature Granulocyte % (Auto) 1, Neutrophils (%) (Auto) 84H, Lymphocytes (%) (Auto) 7L, Monocytes (%) (Auto) 7, Eosinophils (%) (Auto) 1, Basophils (%) (Auto) 0, Neutrophils # (Auto) 12.3H, Lymphocytes # (Auto) 1.0, Monocytes # (Auto) 1.1H, Eosinophils # (Auto) 0.1, Basophils # (Auto) 0.0, Immature Granulocyte # (Auto) 0.1, Neutrophils % (Manual) 88, Lymphocytes % (Manual) 4, Monocytes % (Manual) 8, Hypochromasia SLIGHT, Anisocy tosis SLIGHT, Sodium Level 139, Potassium Level 3.6, Chloride Level 100, Carbon Dioxide Level 28, Anion Gap 11, Blood Urea Nitrogen 51H, Creatinine 1.37H, Estimat Glomerular Filtration Rate 51, BUN/Creatinine Ratio 37, Glucose Level 94, Calcium Level 8.2L, Procalcitonin 0.25H Microbiology 11/16/21 MRSA Screen - Final, Complete MRSA not isolated 11/15/21 Blood Culture - Final, Complete No growth A/P: Assessment: S/P non-syncopal fall resulting in a left hip fracture - Cardiac risk for hip surgery is estimated to be intermediate Suspected pneumonia - CT chest & abd on 11/15/21: Bilateral pleural effusions and airspace infiltrates in the right upper and right lower lobe and right middle lobe which could represent pulmonary contusions or pneumonia. There is some atelectasis in the left lower lobe and left perihilar region. It also showed a large hiatal hernia, gallbladder sludge, left nonobstructing renal calculus and left renal cyst. Abdominal aortic aneurysm measuring 4 cm, seen on abd CT of 11/15/21 Coronary artery disease, - History of cardiac catheterization done in September [address] Molina showing mild to moderate disease in the LAD, FFR was done and it was nonobstructive di sease. 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 Joseph showing normal LV size, EF 50 to 55%, dilated left atrium, calcified mitral valve with mild mitral regurgitation, mild aortic regurgitation, moderate tricuspid regurgitation, severe pulmonary hypertension with PA pressure of 60 to 65 mmHg. Paroxysmal atrial fibrillation with sinus node dysfunction - ILR implanted on November 03, 2019, no significant episode of atrial fibrillation were detected - followed by Dr. Joseph - Intolerant to BB d/t bradycardia Pulmonary HTN - PASP 60-65 mmhg per echocardiogram of August [address] Joseph History of dizziness and lightheadedness near syncope. Chronic diastolic CHF - clinically compensated HLD COPD - oxygen dependent Chronic kidney disease stage 4 Chronic back and joint pain Plan: * Dr Sims is managing patient's hospitalization. We recommend DVT prophylaxis and to please resume antiplatelet therapy with aspirin and oral anticoag with apixaban as soon as possible after surgery * Replenish lytes * Management of post op anemia per medical/orthopedic services * Monitor labs * Eliquis has been resumed GABY MARROQUIN Nov 19, 2021 10:04
[2021-11-19] MEDS: AMIODARONE 200 MG (CORDARONE) TAB PO SCH ×2 (10:19→20:19)
[2021-11-19] MEDS: dilTIAZem120 MG (CARDIZEM CD) CAP PO SCH (10:19)
[2021-11-19] MEDS: APIXABAN 5 MG (ELIQUIS) TABLET PO SCH ×2 (10:19→20:25)
[2021-11-19] MEDS: SENNA W/DOCUSATE (SENOKOT S) TABLET PO SCH ×2 (10:19→20:25)
[2021-11-19] MEDS: polyethylene glycoL POWDER 17 GM (MIRALAX) PACK PO SCH ×2 (10:20→20:25)
[2021-11-19] MEDS: amLODIPine 5 MG (NORVASC) TAB PO SCH (10:20)
--- NOTE | 2021-11-19 11:04 | Physical Therapy Daily Note ---
PT Daily Note-Current Subjective Patient in bed pre tx, agrees to PT, says he has a little pain in his left hip but will not rate it. Appearance Patient in bed post tx with nurse call, phone, tray, all needs met, wedge and SCD's on. Mental Status Patient Orientation: Person, Place, Situation Attachments: Oxygen, Estrella Catheter, IV Transfers SCALE: Activities may be completed with or without assistive devices. 8-Dnncvjgfug-kaekkhn completes the activity by him/herself with no assistance from a helper. 5-Set-up or Clean-up Assistance-helper sets up or cleans up; patient completes activity. [place] assists only prior to or following the activity. 4-Supervision or Touching Assistance-helper provides verbal cues and/or touching/steadying and/or contact guard assistance as patient completes activity. Assistance may be provided throughout the activity or intermittently. 3-Partial/Moderate Assistance-helper does LESS THAN HALF the effort. [place] lifts, holds or supports trunk or limbs, but provides less than half the effort. 2-Substantial/Maximal Assistance-helper does MORE THAN HALF the effort. [place] lifts or holds trunk or limbs and provides more than half the effort. 0-Kpmcvhupc-konsbw does ALL the effort. Patient does none of the effort to complete the activity. Or, the assistance of 2 or more helpers is required for the patient to complete the activity. If activity was not attempted, code reason: 7-Patient Refused. 9-Not Applicable-not attempted and the patient did not perform the activity before the current illness, exacerbation or injury. 10-Not Attempted due to Environmental Limitations-(lack of equipment, weather restraints, etc.). 88-Not Attempted due to Medical Conditions or Safety Concerns. Roll Left & Right (QC): 1 Sit to Lying (QC): 1 Lying to Sitting/Side of Bed(Q: 1 Sit to Stand (QC): 1 Patient required assist of 2 for supine to sit, attempted to stand using walker and he didn't even seem to be able to attempt it, so tried to stand with therapist assist in front of patient and couldn't even stand with max assist. Dependent to lay back down. He had to roll from side to side to replace pad and was dependent for this also. Weight Bearing Left Lower Extremity: Left Weight Bearing/Tolerated Treatments bed mobility, rolling Assessment Current Status: Poor Progress dependent for mobility PT Short Term Goals Short Term Goals Time Frame: Nov 29, 2021 Roll Left & Right: 3 Sit to lyin Lying to sitting on side of be: 3 Sit to stand: 3 Chair/sys-bk-covtu transfer: 3 Toilet transfer: 3 Walk 10 feet: 2 Walk 50 feet with two turns: 2 PT Cold Roll Catcher Goals Custodial Goals PT Cold Roll Catcher Goals Time Frame: Dec 27, 2021 Roll Left & Right (QC): 4 Sit to Lying (QC): 4 Lying-Sitting on Side/Bed(QC): 4 Sit to Stand (QC): 4 Chair/Ghz-pa-Reyxo Xfer(QC): 4 Toilet Transfer (QC): 4 Does the Patient Walk: Yes Walk 10 feet (QC): 4 Walk 50ft with 2 Turns (QC): 4 Walk 150 ft (QC): 3 PT Plan Problem List Problem List: Activity Tolerance, Functional Strength, Safety, Balance, Gait, Transfer, Bed Mobility, ROM Treatment/Plan Treatment Plan: Continue Plan of Care Treatment Plan: Bed Mobility, Education, Functional Activity Vikas, Functional Strength, Group Therapy, Gait, Safety, Therapeutic Exercise, Transfers Treatment Duration: Nov 16, 2021 Frequency: 11 times per week Estimated Hrs Per Day: .25 hour per day Patient and/or Family Agrees t: Yes Safety Risks/Education Patient Education: Reviewed Precautions, Correct Positioning, Safety Issues Teaching Recipient: Patient Teaching Methods: Demonstration, Discussion Response to Teaching: Reinforcement Needed Time/GCodes Time In: 1018 Time Out: 1043 Total Billed Treatment Time: 25 Total Billed Treatment 1 visit FA ALMA DELIA MARTINS PT Nov 19, 2021 11:04
--- NOTE | 2021-11-19 11:18 | Occupational Therapy Eval ---
OT Evaluation-General/PLF Medical Diagnosis Admission Date Nov 15, 2021 at 14:34 Medical Diagnosis: Left femur fracture Onset Date: Nov 16, 2021 Therapy Diagnosis Therapy Diagnosis: decreased ADL status, weakness Height/Weight Height (Feet): 5 Height (Inches): 9.00 Weight (Pounds): 215 Weight (Ounces): 0.0 Precautions Precautions/Isolations: Fall Prevention, Standard Precautions, Pressure Ulcer Referral Physician: Dr. Stallworth Referral Reason: Evaluation/Treatment Medical History Pertinent Medical History: Atrial Fib, COPD, Heart Failure, HTN, [place], Renal Insufficiency Additional Medical History COPD, Afib, CAD, HTN, DDD, arthritis Current History Pt fell, displaced femoral neck fx. 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 Social History Home: Assisted Living Current Living Status: Alone Entry Into Home: Ramp Steps Into Home: 0 Steps Inside Home: 0 ADL-Prior Level of Function SCALE: Activities may be completed with or without assistive devices. 5-Tswtnzmubu-vkriopc completes the activity by him/herself with no assistance from a helper. 5-Set-up or Clean-up Assistance-helper sets up or cleans up; patient completes activity. [place] assists only prior to or following the activity. 4-Supervision or Touching Assistance-helper provides verbal cues and/or touching/steadying and/or contact guard assistance as patient completes activity. Assistance may be provided throughout the activity or intermittently. 3-Partial/Moderate Assistance-helper does LESS THAN HALF the effort. [place] lifts, holds or supports trunk or limbs, but provides less than half the effort. 2-Substantial/Maximal Assistance-helper does MORE THAN HALF the effort. [place] lifts or holds trunk or limbs and provides more than half the effort. 4-Zgrudrshx-elnlvx does ALL the effort. Patient does none of the effort to complete the activity. Or, the assistance of 2 or more helpers is required for the patient to complete the activity. If activity was not attempted, code reason: 7-Patient Refused. 9-Not Applicable-not attempted and the patient did not perform the activity before the current illness, exacerbation or injury. 10-Not Attempted due to Environmental Limitations-(lack of equipment, weather restraints, etc.). 88-Not Attempted due to Medical Conditions or Safety Concerns. ADL PLOF Comments Pt reports IND with ADLs with functional mobility and ADLs, using a walker. Self Care: Independent Functional Cognition: Independent DME/Equipment Comments walker OT Current Status Subjective Pt in bed, agreeable to OT Tx. Mental Status/Objective Patient Orientation: Person, Place, Situation Attachments: Estrella Catheter, IV Current Dentures/Partials: Yes Upper Extremity ROM BUE shoulder flexion to approx 80 degrees Upper Extremity Coordination Decreased due to arthritic changes in fingers. Upper Extremity Strength grossly 3/5 ADL-Treatment Eating (QC): 3 (Min A. Pt able to grasp cup off of tray table with encouragement. OT assisted with placing staw in his mouth.) Oral Hygiene (QC): 3 (Min A, OT brushed pts dentures. Pt able to brush gums and place dentures in his mouth.) Other Treatments Pt laying in bed, OT educated pt on purpose and benefit of OT, pt provided information about PLOF. Per PT report, pt currently requires assist x2 for supine <-> sit transfers, and was unable to stand on this date. Dependent for b ed mobility/rolling side to side. Pt participated in UE screen, limited shoulder flexion and noted arthritis in fingers. Pt agreeable to put his dentures in, required assistance brushing his dentures, pt able to use oral swab on gums and place dentures in his mouth. Post tx, pt in bed, call light in reach and all needs met. Education OT Patient Education: Correct positioning, Modified ADL techniques, Progress toward Goal/Update tx plan, Purpose of tx/functional activities Teaching Recipient: Patient Teaching Methods: Discussion Response to Teaching: Verbalize Understanding OT Penitentiary Goals Airplane Pilot Chief Goals Time Frame: Dec 13, 2021 Eating (QC): 5 Oral Hygiene (QC): 5 Toileting Hygiene (QC): 3 Shower/Bathe Self (QC): 3 Upper Body Dressing (QC): 4 Lower Body Dressing (QC): 2 On/Off Footwear (QC): 3 Additional Goals: 1-Demonstrate ADL Tasks, 2-Verbalize Understanding, 3- ImproveStrength/Vikas 1=Demonstrate adherence to instructed precautions during ADL tasks. 2=Patient will verbalize/demonstrate understanding of assistive devices/modifications for ADL. 3=Patient will improve strength/tolerance for activity to enable patient to perform ADL's. OT Education/Plan Problem List/Assessment Assessment: Decreased Activ Tolerance, Decreased UE Strength, Dependent Transfers, Impaired Bed Mobility, Impaired Coordination, Impaired Funct Balance, Impaired I ADL's, Impaired Self-Care Skills, Restricted Funct UE ROM Discharge Recommendations Plan/Recommendations: Continue POC Treatment Plan/Plan of Care Patient would benefit from OT for education, treatment and training to promote independence in ADL's, mobility, safety and/or upper extremity function for ADL's. Plan of Care: ADL Retraining, Functional Mobility, UE Funct Exercise/Act Treatment Duration: Dec 13, 2021 Frequency: 3 times per week (3-5 times per week) Rehab Potential: Fair Time/GCodes Start Time: 10:50 Stop Time: 11:05 Total Time Billed (hr/min): 15 Billed Treatment Time 1, ASHANTI CRISTOBAL OT Nov 19, 2021 11:18
[2021-11-19 12:00] VITALS: BP 138/73
--- NOTE | 2021-11-19 14:10 | Progress Note - Hospitalist ---
Subjective HPI/CC On Admission Date Seen by Provider: Nov 19, 2021 Time Seen by Provider: 10:20 This is a 76-year-old white male resident of [facility]. He thinks that he had both an oxycodone and hydrocodone and a Xanax before going to bed last night which made him very unstable on his feet. He says he fell striking his left hip and in fact does have a displaced intertrochanteric femoral neck fracture. The patient has been maintained on Eliquis for paroxysmal atrial fibrillation and this is being held so that he is surgery can be done under spinal anesthesia. Surgery is being planned for day after tomorrow. Appreciate Ortho and cardiology consultations. At the time of my interview the patient is awake and alert and other than complaining of some left hip pain and chronic back pain he seems to be in fair spirits Subjective/Events-last exam He is doing well. He is about to work with therapy. He is having pain when he moves. Objective Exam Vital Signs Vital Signs Date Time Temp Pulse Resp B/P (MAP) Pulse Ox O2 Delivery O2 Flow Rate FiO2 11/19/21 13:00 61 11/19/21 12:00 36.2 18 138/73 (94) 97 Nasal Cannula 2.00 11/18/21 15:44 28 Capillary Refill : Less Than 3 Seconds General Appearance: No Apparent Distress, WD/WN Respiratory: Lungs Clear, Normal Breath Sounds, No Respiratory Distress Cardiovascular: Regular Rate, Rhythm, No Edema, No Murmur Gastrointestinal: Normal Bowel Sounds, Non Tender, Soft Extremity: Normal Inspection, Non Tender, No Pedal Edema Neurologic/Psychiatric: Alert, Oriented x3, Normal Mood/Affect Skin: Normal Color, Warm/Dry Results/Procedures Lab Laboratory Tests 11/19/21 05:15 Patient resulted labs reviewed. Imaging: Reviewed Imaging Report Assessment/Plan Assessment and Plan Assess & Plan/Chief Complaint Hip fracture s/p surgical repair 11/18 Pain regimen Bowel regimen Incentive spirometer PT/OT IRF evaluation Pneumonia Continue antibiotics AFib Resuming Eliquis SARA on CKD Improved Monitor Anemia Monitor COPD CAD Chronic back pain HTN HFpEF Continue home meds DVT prophylaxis: already receiving therapeutic anticoagulation Diagnosis/Problems Diagnosis/Problems (1) Hip fracture, left Status: Acute (2) Pneumonia Status: Acute (3) Acute kidney injury superimposed on chronic kidney disease Status: Acute (4) Anemia Status: Acute (5) Paroxysmal atrial fibrillation Status: Chronic Clinical Quality Measures DVT/VTE Risk/Contraindication: Contraindications-Pharm: Other *list below* Other: surgery DEMARIO TO MD Nov 19, 2021 14:10
--- NOTE | 2021-11-19 14:23 | Physical Therapy Daily Note ---
PT Daily Note-Current Subjective Patient in bed pre tx, agrees to PT, complains of neck pain more than hip pain. His hip pain is 4/10. Patient states he needs to have a BM, used nurse call and he will perform LE exercise until nurse gets here, PT will assist with rolling and positioning in bed. Appearance Patient in bed post tx with nurse call, phone, tray, all needs met, on bedpan. Mental Status Patient Orientation: Person, Place, Situation Attachments: Estrella Catheter Transfers SCALE: Activities may be completed with or without assistive devices. 6-Bmsuwqnngd-bwwmcix completes the activity by him/herself with no assistance from a helper. 5-Set-up or Clean-up Assistance-helper sets up or cleans up; patient completes activity. [place] assists only prior to or following the activity. 4-Supervision or Touching Assistance-helper provides verbal cues and/or touchin g/steadying and/or contact guard assistance as patient completes activity. Assistance may be provided throughout the activity or intermittently. 3-Partial/Moderate Assistance-helper does LESS THAN HALF the effort. [place] lifts, holds or supports trunk or limbs, but provides less than half the effort. 2-Substantial/Maximal Assistance-helper does MORE THAN HALF the effort. [place] lifts or holds trunk or limbs and provides more than half the effort. 6-Nhzrfsegm-abntli does ALL the effort. Patient does none of the effort to complete the activity. Or, the assistance of 2 or more helpers is required for the patient to complete the activity. If activity was not attempted, code reason: 7-Patient Refused. 9-Not Applicable-not attempted and the patient did not perform the activity before the current illness, exacerbation or injury. 10-Not Attempted due to Environmental Limitations-(lack of equipment, weather restraints, etc.). 88-Not Attempted due to Medical Conditions or Safety Concerns. Roll Left & Right (QC): 1 Weight Bearing Left Lower Extremity: Left Weight Bearing/Tolerated Exercises Supine Ex: Ankle pumps, Quad Set, Glut sets, Heel Slides, Short Arc Quads, Straight leg raise, Hip abd/add Supine Reps: 15 (AAROM on LLE except quad and glut sets.) Treatments LE strengthening Assessment Current Status: Poor Progress Patient can barely move his leg. Nurse never showed up so PT rolled patient to the side and placed bedpan. PT Short Term Goals Short Term Goals Time Frame: Nov 29, 2021 Roll Left & Right: 3 Sit to lyin Lying to sitting on side of be: 3 Sit to stand: 3 Chair/qco-qj-psgkp transfer: 3 Toilet transfer: 3 Walk 10 feet: 2 Walk 50 feet with two turns: 2 PT Assisted Goals Barge Engineer Goals PT Assisted Goals Time Frame: Dec 27, 2021 Roll Left & Right (QC): 4 Sit to Lying (QC): 4 Lying-Sitting on Side/Bed(QC): 4 Sit to Stand (QC): 4 Chair/Nuy-fu-Jmcem Xfer(QC): 4 Toilet Transfer (QC): 4 Does the Patient Walk: Yes Walk 10 feet (QC): 4 Walk 50ft with 2 Turns (QC): 4 Walk 150 ft (QC): 3 PT Plan Problem List Problem List: Activity Tolerance, Functional Strength, Safety, Balance, Gait, Transfer, Bed Mobility, ROM Treatment/Plan Treatment Plan: Continue Plan of Care Treatment Plan: Bed Mobility, Education, Functional Activity Vikas, Functional Strength, Group Therapy, Gait, Safety, Therapeutic Exercise, Transfers Treatment Duration: Nov 16, 2021 Frequency: 11 times per week Estimated Hrs Per Day: .25 hour per day Patient and/or Family Agrees t: Yes Safety Risks/Education Patient Education: Correct Positioning, Safety Issues Teaching Recipient: Patient Teaching Methods: Demonstration, Discussion Response to Teaching: Reinforcement Needed Time/GCodes Time In: 1400 Time Out: 1410 Total Billed Treatment Time: 10 Total Billed Treatment 1 visit EX ALMA DELIA HOSKINS PT Nov 19, 2021 14:23
[2021-11-19] MEDS: morphine INJ 4 MG/ML 1 ML (VIAL/SYRINGE) IV PRN (15:05)
[2021-11-19 16:00] VITALS: BP 137/70
[2021-11-19] MEDS: AZITHROMYCIN INJECTION 500 MG in NS (IVPB) 250 ML IV SCH (18:22)
--- NOTE | 2021-11-19 18:22 | Progress Note - Cardiology ---
Cardiology SOAP Progress Note Subjective: Somnolent at time of my exam Does not report cp or palp or syncope or shortness of breath Objective: I&O/Vital Signs 11/19/21 11/19/21 11/19/21 11/19/21 07:00 08:00 08:00 10:50 Temp 36.0 Pulse 55 58 Resp 22 B/P (MAP) 123/66 (85) Pulse Ox 98 92 O2 Delivery Nasal Cannula Nasal Cannula Nasal Cannula O2 Flow Rate 2.00 2.00 2.00 11/19/21 11/19/21 11/19/21 11/19/21 12:00 13:00 14:55 16:00 Temp 36.2 36.8 Pulse 60 61 59 Resp 18 20 B/P (MAP) 138/73 (94) 137/70 (92) Pulse Ox 97 93 96 O2 Delivery Nasal Cannula Nasal Cannula Nasal Cannula O2 Flow Rate 2.00 2.00 2.00 11/19/21 00:00 Intake Total 1608 ml Output Total 1075 ml Balance 533 ml Weight (Pounds): 215 Weight (Ounces): 0.0 Weight (Calculated Kilograms): [id number] Constitutional: AAO x 3, well-developed, well-nourished Respiratory: No accessory muscle use; other (fair air entry, diminished at the bases) Cardiovascular: regular rate-rhythm, S1 and S2, systolic murmur (soft JULIUS at card basee) Gastrointestional: No tender; soft; No guarding, No rebound; audible bowel sounds Extremities: other (multiple contractures at the finger joints of both hand and some swelling of joints); No clubbing, No cyanosis, No significant edema Neurologic/Psychiatric: oriented x 3, other (moves all limbs equally) Skin: No rash on exposed areas, No ulcerations on exposed areas Results/Procedures: Labs Laboratory Tests 11/19/21 05:15: Hemoglobin 7.7L, Hematocrit 25L, Sodium Level 140, Potassium Level 3.7, Chloride Level 103, Carbon Dioxide Level 25, Anion Gap 12, Blood Urea Nitrogen 33H, Creatinine 1.24, Estimat Glomerular Filtration Rate 57, BUN/Creatinine Ratio 27, Glucose Level 101, Calcium Level 8.3L Microbiology 11/16/21 MRSA Screen - Final, Complete MRSA not isolated 11/15/21 Blood Culture - Preliminary, Resulted No growth Laboratory Tests 11/18/21 05:47 11/19/21 05:15 A/P: Assessment: S/P non-syncopal fall resulting in a left hip fracture - Prosthetic Replacement of Left Femoral Neck Fracture on 11/18/21 Suspected pneumonia - CT chest & abd on 11/15/21: Bilateral pleural effusions and airspace infiltrates in the right upper and right lower lobe and right middle lobe which could represent pulmonary contusions or pneumonia. There is some atelectasis in the left lower lobe and left perihilar region. It also showed a large hiatal hernia, gallbladder sludge, left nonobstructing renal calculus and left renal cyst. Abdominal aortic aneurysm measuring 4 cm, seen on abd CT of 11/15/21 Coronary artery disease, - History of cardiac catheterization done in September [address] Molina showing mild to moderate disease in the LAD, FFR was done and it was nonobstructive disease. 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 Joseph showing normal LV size, EF 50 to 55%, dilated left atrium, calcified mitral valve with mild mitral regurgitation, mild aortic regurgitation, moderate tricuspid regurgitation, severe pulmonary hypertension with PA pressure of 60 to 65 mmHg. Paroxysmal atrial fibrillation with sinus node dysfunction - ILR implanted on November 03, 2019, no significant episode of atrial fibrillation were detected - followed by Dr. Joseph - Intolerant to BB d/t bradycardia Pulmonary HTN - PASP 60-65 mmhg per echocardiogram of August [address] Joseph History of dizziness and lightheadedness near syncope. Chronic diastolic CHF - clinically compensated HLD COPD - oxygen dependent Chronic kidney disease stage 4 Chronic back and joint pain Plan: * Continue previous cardiac regimen. Eliquis has been resumed * Replenish lytes * Management of post op anemia per medical/orthopedic services * Monitor labs JAYSON GUTIERREZ MD FACP [facility] Nov 19, 2021 18:22
[2021-11-19] MEDS: GABAPENTIN 300 MG (NEURONTIN) CAP PO SCH (20:25)
[2021-11-19 20:38] VITALS: BP 100/55
[2021-11-19] MEDS: ACETAMINOPHEN 325 MG TABLET PO PRN (20:43)
[2021-11-19 23:45] VITALS: BP 124/66
[2021-11-20] MEDS: RT-ALBUTEROL/IPRATROPIUM 3 ML (DUONEB) VIAL INH SCH ×4 (02:11→21:30)
[2021-11-20 04:17] VITALS: BP 118/62
[2021-11-20 06:05] LABS: HEMOGLOBIN 7.3 g/dL (13.3-17.7)
[2021-11-20] MEDS: LEVOTHYROXINE 25 MCG (LEVOTHROID) TAB PO SCH (06:40)
[2021-11-20 08:06] VITALS: BP 137/74
[2021-11-20] MEDS: amLODIPine 5 MG (NORVASC) TAB PO SCH (08:30)
[2021-11-20] MEDS: dilTIAZem120 MG (CARDIZEM CD) CAP PO SCH (08:30)
[2021-11-20] MEDS: SENNA W/DOCUSATE (SENOKOT S) TABLET PO SCH ×2 (08:30→21:17)
[2021-11-20] MEDS: AMIODARONE 200 MG (CORDARONE) TAB PO SCH ×2 (08:30→09:00)
[2021-11-20] MEDS: polyethylene glycoL POWDER 17 GM (MIRALAX) PACK PO SCH ×2 (08:30→21:17)
[2021-11-20] MEDS: APIXABAN 5 MG (ELIQUIS) TABLET PO SCH ×2 (08:30→21:17)
--- NOTE | 2021-11-20 10:34 | Occupational Ther Daily Note ---
OT Current Status-Daily Note Subjective Pt laying in bed, reports pain but unable to provide pain rating. Mental Status/Objective Attachments: Estrella Catheter, IV, Oxygen ADL-Treatment Therapy Code Descriptions/Definitions Functional [place] Measure: 0=Not Assessed/NA 4=Minimal Assistance 1=Total Assistance 5=Supervision or Setup 2=Maximal Assistance 6=Modified [place] 3=Moderate Assistance 7=Complete IndependenceSCALE: Activities may be completed with or without assistive devices. 2-Zdwzrjtnvp-anhsrtm completes the activity by him/herself with no assistance from a helper. 5-Set-up or Clean-up Assistance-helper sets up or cleans up; patient completes activity. [place] assists only prior to or following the activity. 4-Supervision or Touching Assistance-helper provides verbal cues and/or touching/steadying and/or contact guard assistance as patient completes activity. Assistance may be provided throughout the activity or intermittently. 3-Partial/Moderate Assistance-helper does LESS THAN HALF the effort. [place] lifts, holds or supports trunk or limbs, but provides less than half the effort. 2-Substantial/Maximal Assistance-helper does MORE THAN HALF the effort. [place] lifts or holds trunk or limbs and provides more than half the effort. 2-Aegbwligm-rjpbjg does ALL the effort. Patient does none of the effort to compl ete the activity. Or, the assistance of 2 or more helpers is required for the patient to complete the activity. If activity was not attempted, code reason: 7-Patient Refused. 9-Not Applicable-not attempted and the patient did not perform the activity before the current illness, exacerbation or injury. 10-Not Attempted due to Environmental Limitations-(lack of equipment, weather restraints, etc.). 88-Not Attempted due to Medical Conditions or Safety Concerns. Eating (QC): 3 (OT brought cup to pt's mouth, pt able to take drink from straw.) Shower/Bathe Self (QC): 1 (per clincial judgment.) Lower Body Dressing (QC): 1 (per clincial judgment.) On/Off Footwear: 1 Toileting Hygiene (QC): 1 (per clincial judgment.) Toilet Transfer (QC): 1 (per clincial judgment.) Other Treatment Pt laying in bed, total assist to don gripper socks. Pt transferred supine to sit EOB, total assist x2. Pt attempted stand but didn't appear to put much effort in. Total assist SPT to recliner. Post tx, pt in recliner, call light in reach and all needs met. Education OT Patient Education: Correct positioning, Energy conservation, Modified ADL techniques, Progress toward Goal/Update tx plan, Purpose of tx/functional activities, Rehab process Teaching Recipient: Patient Teaching Methods: Discussion Response to Teaching: Reinforcement Needed OT Half-Way Goals Traffic Maintenance Supervisor Goals Time Frame: Dec 13, 2021 Eating (QC): 5 Oral Hygiene (QC): 5 Toileting Hygiene (QC): 3 Shower/Bathe Self (QC): 3 Upper Body Dressing (QC): 4 Lower Body Dressing (QC): 2 On/Off Footwear (QC): 3 Additional Goals: 1-Demonstrate ADL Tasks, 2-Verbalize Understanding, 3- ImproveStrength/Vikas 1=Demonstrate adherence to instructed precautions during ADL tasks. 2=Patient will verbalize/demonstrate understanding of assistive devices/modifications for ADL. 3=Patient will improve strength/tolerance for activity to enable patient to perform ADL's. OT Education/Plan Problem List/Assessment Assessment: Decreased Activ Tolerance, Decreased Safety Aware, Decreased UE Strength, Dependent Transfers, Impaired Bed Mobility, Impaired Funct Balance, Impaired I ADL's, Impaired Self-Care Skills Discharge Recommendations Plan/Recommendations: Continue POC Treatment Plan/Plan of Care Patient would benefit from OT for education, treatment and training to promote independence in ADL's, mobility, safety and/or upper extremity function for ADL's. Plan of Care: ADL Retraining, Functional Mobility, UE Funct Exercise/Act Treatment Duration: Dec 13, 2021 Frequency: 3 times per week (3-5 times per week) Rehab Potential: Fair Time/GCodes Start Time: 10:07 Stop Time: 10:16 Total Time Billed (hr/min): 9 Billed Treatment Time 1, ASHANTI JONES OT Nov 20, 2021 10:34
--- NOTE | 2021-11-20 10:40 | Physical Therapy Daily Note ---
PT Daily Note-Current Subjective Patient in bed pre tx, agrees to PT, has 4/10 pain in left hip. Appearance Patient in recliner post tx with nurse call, phone, tray, all needs met. Mental Status Patient Orientation: Person, Place, Situation Attachments: Oxygen, Estrella Catheter Transfers SCALE: Activities may be completed with or without assistive devices. 9-Sszpuwvroa-yafqorm completes the activity by him/herself with no assistance from a helper. 5-Set-up or Clean-up Assistance-helper sets up or cleans up; patient completes activity. [place] assists only prior to or following the activity. 4-Supervision or Touching Assistance-helper provides verbal cues and/or touching/steadying and/or contact guard assistance as patient completes activi ty. Assistance may be provided throughout the activity or intermittently. 3-Partial/Moderate Assistance-helper does LESS THAN HALF the effort. [place] lifts, holds or supports trunk or limbs, but provides less than half the effort. 2-Substantial/Maximal Assistance-helper does MORE THAN HALF the effort. [place] lifts or holds trunk or limbs and provides more than half the effort. 5-Cvpovlion-zxqiml does ALL the effort. Patient does none of the effort to complete the activity. Or, the assistance of 2 or more helpers is required for the patient to complete the activity. If activity was not attempted, code reason: 7-Patient Refused. 9-Not Applicable-not attempted and the patient did not perform the activity before the current illness, exacerbation or injury. 10-Not Attempted due to Environmental Limitations-(lack of equipment, weather restraints, etc.). 88-Not Attempted due to Medical Conditions or Safety Concerns. Roll Left & Right (QC): 1 Lying to Sitting/Side of Bed(Q: 1 Sit to Stand (QC): 1 Chair/Svz-iy-Yvbgk Xfer(QC): 1 dependent stand pivot to the recliner, patient doesn't seem to be able to bear any weight on his legs and assists very little with his arms, patient is very stiff, requires 2 person assist for supine to sit. Weight Bearing Left Lower Extremity: Left Weight Bearing/Tolerated Exercises Seated Therapy Exercises: Ankle pumps, Long arc quads Seated Reps: 20 Treatments bed mobility and transfers, LE strengthening Assessment Current Status: Poor Progress patient still dependent for mobility PT Short Term Goals Short Term Goals Time Frame: Nov 29, 2021 Roll Left & Right: 3 Sit to lyin Lying to sitting on side of be: 3 Sit to stand: 3 Chair/isc-dz-wgukx transfer: 3 Toilet transfer: 3 Walk 10 feet: 2 Walk 50 feet with two turns: 2 PT Distribution Sales Representative Goals Alf Goals PT Distribution Sales Representative Goals Time Frame: Dec 27, 2021 Roll Left & Right (QC): 4 Sit to Lying (QC): 4 Lying-Sitting on Side/Bed(QC): 4 Sit to Stand (QC): 4 Chair/Xmv-gs-Lnzsa Xfer(QC): 4 Toilet Transfer (QC): 4 Does the Patient Walk: Yes Walk 10 feet (QC): 4 Walk 50ft with 2 Turns (QC): 4 Walk 150 ft (QC): 3 PT Plan Problem List Problem List: Activity Tolerance, Functional Strength, Safety, Balance, Gait, Transfer, Bed Mobility, ROM Treatment/Plan Treatment Plan: Continue Plan of Care Treatment Plan: Bed Mobility, Education, Functional Activity Vikas, Functional Strength, Group Therapy, Gait, Safety, Therapeutic Exercise, Transfers Treatment Duration: Nov 16, 2021 Frequency: 11 times per week Estimated Hrs Per Day: .25 hour per day Patient and/or Family Agrees t: Yes Safety Risks/Education Patient Education: Transfer Techniques, Reviewed Precautions, Correct Positioning, Safety Issues Teaching Recipient: Patient Teaching Methods: Demonstration, Discussion Response to Teaching: Reinforcement Needed Time/GCodes Time In: 1007 Time Out: 1017 Total Billed Treatment Time: 10 Total Billed Treatment 1 visit FA ALMA DELIA HOSKINS PT Nov 20, 2021 10:40
[2021-11-20] MEDS: morphine INJ 4 MG/ML 1 ML (VIAL/SYRINGE) IV PRN ×3 (11:03→19:38)
--- NOTE | 2021-11-20 11:08 | Progress Note - Hospitalist ---
Subjective HPI/CC On Admission Date Seen by Provider: Nov 20, 2021 Time Seen by Provider: 10:00 This is a 76-year-old white male resident of [facility]. He thinks that he had both an oxycodone and hydrocodone and a Xanax before going to bed last night which made him very unstable on his feet. He says he fell striking his left hip and in fact does have a displaced intertrochanteric femoral neck fracture. The patient has been maintained on Eliquis for paroxysmal atrial fibrillation and this is being held so that he is surgery can be done under spinal anesthesia. Surgery is being planned for day after tomorrow. Appreciate Ortho and cardiology consultations. At the time of my interview the patient is awake and alert and other than complaining of some left hip pain and chronic back pain he seems to be in fair spirits Subjective/Events-last exam He is doing okay today. He is not having any pain when he is not moving. He has not worked with physical therapy yet today. Objective Exam Vital Signs Vital Signs Date Time Temp Pulse Resp B/P (MAP) Pulse Ox O2 Delivery O2 Flow Rate FiO2 11/20/21 10:17 95 Nasal Cannula 2.00 11/20/21 08:06 37.0 53 20 137/74 (95) 11/18/21 15:44 28 Capillary Refill : Less Than 3 Seconds General Appearance: No Apparent Distress, Chronically ill Respiratory: Lungs Clear, Normal Breath Sounds, No Respiratory Distress Cardiovascular: Regular Rate, Rhythm, No Edema, No Murmur Gastrointestinal: Normal Bowel Sounds, Non Tender, Soft Extremity: Normal Inspection, Non Tender, No Pedal Edema Neurologic/Psychiatric: Alert, Normal Mood/Affect Skin: Normal Color, Warm/Dry Results/Procedures Lab Laboratory Tests 11/20/21 05:20 Patient resulted labs reviewed. Imaging: Reviewed Imaging Report Assessment/Plan Assessment and Plan Assess & Plan/Chief Complaint Hip fracture s/p surgical repair 11/18 Pain regimen Bowel regimen Incentive spirometer PT/OT IRF denied Pneumonia Continue antibiotics AFib Continue Eliquis SARA on CKD Improved Monitor Anemia Monitor COPD CAD Chronic back pain HTN HFpEF Continue home meds DVT prophylaxis: already receiving therapeutic anticoagulation Diagnosis/Problems Diagnosis/Problems (1) Hip fracture, left Status: Acute (2) Pneumonia Status: Acute (3) Acute kidney injury superimposed on chronic kidney disease Status: Acute (4) Anemia Status: Acute (5) Paroxysmal atrial fibrillation Status: Chronic Clinical Quality Measures DVT/VTE Risk/Contraindication: Contraindications-Pharm: Other *list below* Other: surgery DEMARIO TO MD Nov 20, 2021 11:08
[2021-11-20 11:34] VITALS: BP 122/75
--- NOTE | 2021-11-20 12:23 | Progress Note - Ortho ---
Progress Note Subjective Date of Exam 11/20/21 Chief Complaint POD #2 L Hip Bipolar HPI/Events since last exam not progressing with therapy, states he has a lot of pain around the surgical site, per therapy notes he is not bearing weight and requires full assist Review of Systems not obtained Allergies: Coded Allergies: Sulfa (Sulfonamide Antibiotics) (Verified Allergy, Unknown, 10/04/19) Home Meds Reported Medications Oxycodone Myristate (Xtampza ER) 18 Mg Cap.spr.12, 18 MG PO Q12H, CAP 11/18/21 Tiotropium [place] (Spiriva Respimat 2.5MCG/ACTUATION) 4 Gm Mist.inhal, 2 PUFF INH DAILY, EA 11/18/21 Sennosides (Senna Lax) 8.6 Mg Tablet, 8.6 MG PO DAILY PRN for CONSTIPATION-5TH LINE, TAB 11/18/21 Multivitamin (Multivitamin) 1 Each Tablet, 1 EACH PO DAILY, TAB 11/18/21 Metolazone (Metolazone) 5 Mg Tablet, 5 MG PO MO,WE,FR, TAB 11/18/21 Melatonin (Melatonin) 3 Mg Tablet, 3 MG PO HS, TAB 11/18/21 Levothyroxine Sodium (Levothyroxine Sodium) 25 Mcg Tablet, 25 MCG PO DAILY, TAB 11/18/21 Hydrocodone/Acetaminophen (Hydrocodone-Acetamin 5-325 mg) 1 Each Tablet, 1-2 EA PO Q6H PRN for PAIN-MODERATE (5-7), TAB 11/18/21 Polyethylene Glycol 3350 (Miralax) 17 Gm Powd.pack, 17 GM PO DAILY, EACH 11/18/21 Gabapentin (Neurontin) 300 Mg Capsule, 300 MG PO HS, CAP 11/18/21 Furosemide (Furosemide) 40 Mg Tablet, 40 MG PO 1200, TAB 11/18/21 Docusate Sodium (Docusate Sodium) 100 Mg Capsule, 100 MG PO BID, CAP 11/18/21 ALPRAZolam (ALPRAZolam) 0.25 Mg Tablet, 0.25 MG PO DAILY, TAB 11/18/21 ALPRAZolam (ALPRAZolam) 0.25 Mg Tablet, 0.25 MG PO Q8H PRN for ANXIETY, TAB 11/18/21 Potassium Chloride (Klor-Con 10) 10 Meq Tablet.er, 10 MEQ PO DAILY, TAB 5/11/20 Fluticasone Propion/Salmeterol ([place]ixela 250-50 Inhub) 1 Each Blst.w.dev, 1 PUFF IN BID, EA 04/09/20 Furosemide (Lasix) 80 Mg Tablet, 80 MG PO DAILY, TAB 04/09/20 Albuterol Sulfate (Albuterol Sulfate) 2.5 Mg/0.5 Ml Vial.neb, 2.5 MG NEB Q6H PRN for SHORTNESS OF BREATH, EA 10/04/19 Apixaban (Eliquis) 5 Mg Tablet, 5 MG PO BID, TAB 10/04/19 Diltiazem HCl (Diltiazem 24Hr ER) 120 Mg Cap.er.24h, 120 MG PO DAILY, CAP 10/04/19 Amiodarone HCl (Amiodarone HCl) 200 Mg Tablet, 200 MG PO BID, TAB 10/04/19 Albuterol Sulfate (PROAIR HFA) 8.5 Gm Hfa.aer.ad, 2 PUFF IH Q4H PRN for SHORTNESS OF BREATH, EA 07/09/16 Enalapril Maleate (Enalapril Maleate) 20 Mg Tablet, 20 MG PO DAILY, TAB 07/09/16 Discontinued Reported Medications Bisacodyl (Dulcolax) 5 Mg Tablet.dr, 5 MG PO DAILY PRN for CONSTIPATION-4TH LINE, TAB 04/09/20 Acetaminophen (8Hr Arthritis Pain) 650 Mg Tablet.er, 650-1300 MG PO Q8H PRN for PAIN-MILD (1-4), TAB 04/09/20 Amlodipine Besylate (Amlodipine Besylate) 5 Mg Tablet, 5 MG PO DAILY, TAB 04/09/20 Buspirone HCl (Buspirone HCl) 5 Mg Tablet, 5 MG PO TID PRN for ANXIETY, TAB 04/09/20 Metoprolol Tartrate (Metoprolol Tartrate) 100 Mg Tablet, 100 MG PO BID, TAB 08/15/19 Discontinued Scripts Prednisone (Prednisone) 20 Mg Tab, 40 MG PO DAILY, #8 TAB 0 Refills Prov:EMILIANA FLOREZ MD 05/10/20 Cefdinir (Cefdinir) 300 Mg Capsule, 300 MG PO BID, #6 CAP Prov:PATRICIA REID MD 04/19/20 Metolazone (Metolazone) 5 Mg Tablet, 5 MG PO DAILY, #30 TAB Prov:PATRICIA REID MD 04/19/20 Objective Exam L Hip: Dressing C/D/I, +DF of ankle, calf soft/NT, able to activate hip flexors, abductors, and adductors Vital Signs Vital Signs Date Time Temp Pulse Resp B/P (MAP) Pulse Ox O2 Delivery O2 Flow Rate FiO2 11/20/21 11:34 37.3 62 20 122/75 (91) 96 Nasal Cannula 2.00 11/20/21 10:17 95 Nasal Cannula 2.00 11/20/21 08:06 37.0 53 20 137/74 (95) 96 Nasal Cannula 2.00 11/20/21 07:00 52 11/20/21 04:17 36.5 59 18 118/62 (80) 94 Nasal Cannula 2.00 11/20/21 02:41 36.5 11/20/21 01:00 50 11/19/21 23:45 36.8 54 18 124/66 (85) 95 Nasal Cannula 2.00 11/19/21 21:13 96 Nasal Cannula 2.00 11/19/21 21:13 36.4 11/19/21 20:38 36.4 54 18 100/55 (70) 93 Nasal Cannula 2.00 11/19/21 20:00 Nasal Cannula 3.00 11/19/21 19:00 67 11/19/21 16:00 36.8 59 20 137/70 (92) 96 Nasal Cannula 2.00 11/19/21 14:55 93 Nasal Cannula 2.00 11/19/21 13:00 61 I & O 11/20/21 07:00 Intake Total 1330 ml Output Total 1150 ml Balance 180 ml Lab Results Laboratory Tests 11/20/21 05:20: Hemoglobin 7.3L, Hematocrit 24L Microbiology 11/16/21 MRSA Screen - Final, Complete MRSA not isolated 11/15/21 Blood Culture - Preliminary, Resulted No growth Assessment and Plan Assessment L FN FX s/p Prosthetic Replacement Problem List L FN FX s/p Prosthetic Replacement Plan Continue therapy efforts DVT prophyalxis Will require a secondary care option, possible terminal operations supervisor care Final Diagonsis L FN FX s/p Prosthetic Replacement Level of the visit: Level 3 (postop global) Clinical Quality Measures DVT/VTE Risk/Contraindication: Contraindications-Pharm: Other *list below* Other: surgery GARCIA QUESADA MD Nov 20, 2021 12:23
[2021-11-20] MEDS: NS IV 1000 ML 1,000 ML IV SCH (13:51)
--- NOTE | 2021-11-20 15:12 | Physical Therapy Daily Note ---
PT Daily Note-Current Subjective Pt. sitting edge of bed with family present . Nursing having just sat pt. at edge of bed at his request. Pt. agrees to try some exercises but "not promising anything" Pain Numeric Pain Scale: 6 Location: Left Location Body Site: Hip Pain Description: Ache Mental Status Patient Orientation: Normal For Age Attachments: Estrella Catheter, IV Transfers SCALE: Activities may be completed with or without assistive devices. 2-Wxotffodcj-veqipec completes the activity by him/herself with no assistance from a helper. 5-Set-up or Clean-up Assistance-helper sets up or cleans up; patient completes activity. [place] assists only prior to or following the activity. 4-Supervision or Touching Assistance-helper provides verbal cues and/or touching/steadying and/or contact guard assistance as patient completes activity. Assistance may be provided throughout the activity or intermittently. 3-Partial/Moderate Assistance-helper does LESS THAN HALF the effort. [place] lifts, holds or supports trunk or limbs, but provides less than half the effort. 2-Substantial/Maximal Assistance-helper does MORE THAN HALF the effort. [place] lifts or holds trunk or limbs and provides more than half the effort. 4-Egvymweru-iqwrzs does ALL the effort. Patient does none of the effort to complete the activity. Or, the assistance of 2 or more helpers is required for the patient to complete the activity. If activity was not attempted, code reason: 7-Patient Refused. 9-Not Applicable-not attempted and the patient did not perform the activity before the current illness, exacerbation or injury. 10-Not Attempted due to Environmental Limitations-(lack of equipment, weather restraints, etc.). 88-Not Attempted due to Medical Conditions or Safety Concerns. scooting at edge of bed max assist Weight Bearing Left Lower Extremity: Left Weight Bearing/Tolerated Exercises Seated Therapy Exercises: Ankle pumps, Long arc quads, Hip abd/add Seated Reps: 15 Treatments pt. c/o pain and is mostly uncooperative as he states pain limits him, "it feels like every one is just throwing me around, thats how hard it is to move around" Assessment Current Status: Fair Progress pain limits function PT Short Term Goals Short Term Goals Time Frame: Nov 29, 2021 Roll Left & Right: 3 Sit to lyin Lying to sitting on side of be: 3 Sit to stand: 3 Chair/uua-og-rfcel transfer: 3 Toilet transfer: 3 Walk 10 feet: 2 Walk 50 feet with two turns: 2 PT Calender Runner Goals Fdc Goals PT Calender Runner Goals Time Frame: Dec 27, 2021 Roll Left & Right (QC): 4 Sit to Lying (QC): 4 Lying-Sitting on Side/Bed(QC): 4 Sit to Stand (QC): 4 Chair/Nlq-eh-Oeugp Xfer(QC): 4 Toilet Transfer (QC): 4 Does the Patient Walk: Yes Walk 10 feet (QC): 4 Walk 50ft with 2 Turns (QC): 4 Walk 150 ft (QC): 3 PT Plan Treatment/Plan Treatment Plan: Continue Plan of Care Treatment Plan: Bed Mobility, Education, Functional Activity Vikas, Functional Strength, Group Therapy, Gait, Safety, Therapeutic Exercise, Transfers Treatment Duration: Nov 16, 2021 Frequency: 11 times per week Estimated Hrs Per Day: .25 hour per day Patient and/or Family Agrees t: Yes Safety Risks/Education Patient Education: Gait Training, Transfer Techniques, Correct Positioning, Safety Issues Teaching Recipient: Patient Teaching Methods: Demonstration, Discussion Response to Teaching: Verbalize Understanding, Return Demonstration, Reinforcement Needed Time/GCodes Time In: 1410 Time Out: 1430 Total Billed Treatment Time: 20 Total Billed Treatment 1,EX20m CANDI CORDERO WRAPPER CASHIER Nov 20, 2021 15:12
[2021-11-20 16:00] VITALS: BP 151/77
--- NOTE | 2021-11-20 19:03 | Cardiology Progress Note ---
Progress Note-Cardiology Events since last exam Date Seen by Provider: Nov 20, 2021 Time Seen by Provider: 18:58 Events since last exam We are following him due to his chronic cardiac conditions including paroxysmal atrial fibrillation, nonobstructive coronary artery disease and heart failure with preserved ejection fraction. He is status post hip replacement surgery during this admission following a fall that resulted in a femoral neck fracture. When I saw him, he was in pain and this was making him anxious. When he feels anxious, he states his chronic shortness of breath will get slightly worse. He denied chest discomfort, palpitations, syncope, or ankle edema. Certain portions of this document may have been dictated utilizing voice recognition technology. Inherent to this technology, typographical and grammatical errors may exist. As much as I am diligent to identify and correct these mistakes, some errors may remain in the document. Vitals Last set of Vitals Signs Vital Signs 11/18/21 11/20/21 15:44 16:00 Temp 36.7 Pulse 75 Resp 18 B/P (MAP) 151/77 (101) Pulse Ox 94 O2 Delivery Nasal Cannula O2 Flow Rate 2.00 FiO2 28 Labs Labs Laboratory Tests 11/20/21 05:20 Exam Vital Signs Vital Signs Date Time Temp Pulse Resp B/P (MAP) Pulse Ox O2 Delivery O2 Flow Rate FiO2 11/20/21 16:00 36.7 75 18 151/77 (101) 94 Nasal Cannula 2.00 11/18/21 15:44 28 Physical Exam General: Alert. No acute distress. Eye: No xanthelasma. HENT: Normocephalic. Neck: Jugular venous pressure does not appear elevated. Respiratory: Lungs are clear to auscultation. Respirations are non-labored. Breath sounds are equal. Symmetrical chest wall expansion. Cardiovascular: Normal rate. Regular rhythm. No murmur. No gallop. No edema. Gastrointestinal: Soft. Normal bowel sounds. Skin: Warm. Dry. Neurologic: Alert and oriented to person, place, time. Cranial nerves 3-11 grossly intact. Psychiatric: Cooperative. Appropriate mood & affect. Labs Laboratory Tests Test 11/20/21 05:20 Range/Units Hemoglobin 7.3 L 13.3-17.7 g/dL Hematocrit 24 L 40-54 % Diagnosis/Problems Diagnosis/Problems (1) Paroxysmal atrial fibrillation Status: Chronic Assessment & Plan: Telemetry has showed sinus rhythm. He is on amiodarone for rhythm management, diltiazem for rate control and apixaban for stroke prophylaxis. He was on a somewhat high dose of amiodarone. I will decrease this to 200 mg once daily. This should be further tapered following discharge. This can be done by his regular inserter after discharge. (2) Chronic heart failure with preserved ejection fraction (HFpEF) Assessment & Plan: He seems to be clinically compensated at this point in time. He is getting some intravenous fluids intermittently. I would be cautious with intravenous fluids or he may develop volume overload. I suspect his chronic shortness of breath is mainly due to chronic obstructive pulmonary disease. (3) Coronary artery disease without angina pectoris Assessment & Plan: I toldHe has not been having any angina. He is not taking aspirin because he is on apixaban for the atrial fibrillation. He does not appear to have been taking statin medication at home. I have added a lipid panel to his previous labs. He may benefit from statin medication. (4) Primary hypertension Assessment & Plan: Blood pressures are intermittently elevated. If this pers ists, he may need some adjustment to his antihypertensive medication. (5) Mixed hyperlipidemia Assessment & Plan: He has a reported history of hyperlipidemia but has not been on medication for this. As above, I have added a lipid panel to previous blood sample. (6) COPD without exacerbation Status: Chronic Assessment & Plan: The patient reports that this condition causes him to have chronic shortness of breath. BUD LOBO JR, MD Nov 20, 2021 19:03
[2021-11-20 19:28] LABS: TRIGLYCERIDES 57 MG/DL (<150); VLDL CHOLESTEROL 11 MG/DL (5-40)
[2021-11-20 19:33] LABS: CHOLESTEROL 113 MG/DL (< 200)
[2021-11-20 19:34] LABS: HDL CHOLESTEROL 42 MG/DL (40-60)
[2021-11-20 19:55] VITALS: BP 130/64
[2021-11-20] MEDS: GABAPENTIN 300 MG (NEURONTIN) CAP PO SCH (21:17)
[2021-11-20] MEDS: ALPRAZolam 0.25 MG (XANAX) TAB PO PRN (21:17)
[2021-11-20 23:57] VITALS: BP 149/72
[2021-11-21] MEDS: morphine INJ 4 MG/ML 1 ML (VIAL/SYRINGE) IV PRN ×5 (02:26→20:10)
[2021-11-21] MEDS: RT-ALBUTEROL/IPRATROPIUM 3 ML (DUONEB) VIAL INH SCH ×2 (02:33→20:43)
[2021-11-21 04:30] VITALS: BP 137/72
[2021-11-21] MEDS: LEVOTHYROXINE 25 MCG (LEVOTHROID) TAB PO SCH (05:32)
[2021-11-21] MEDS: NS IV 1000 ML 1,000 ML IV SCH ×2 (05:32→20:09)
[2021-11-21 06:37] LABS: HEMOGLOBIN 7.2 g/dL (13.3-17.7)
[2021-11-21 07:57] VITALS: BP 152/81
[2021-11-21] MEDS: dilTIAZem120 MG (CARDIZEM CD) CAP PO SCH (08:11)
[2021-11-21] MEDS: APIXABAN 5 MG (ELIQUIS) TABLET PO SCH ×2 (08:11→20:09)
[2021-11-21] MEDS: AMIODARONE 200 MG (CORDARONE) TAB PO SCH (08:11)
[2021-11-21] MEDS: SENNA W/DOCUSATE (SENOKOT S) TABLET PO SCH ×2 (08:12→20:13)
[2021-11-21] MEDS: amLODIPine 5 MG (NORVASC) TAB PO SCH (08:12)
[2021-11-21] MEDS: polyethylene glycoL POWDER 17 GM (MIRALAX) PACK PO SCH ×2 (08:12→20:12)
--- NOTE | 2021-11-21 10:10 | Physical Therapy Daily Note ---
PT Daily Note-Current Subjective Patient agrees to PT. He states, "You will have to do everything. I can't do it." Pain Numeric Pain Scale: 5-Moderate Pain Location: Left Location Body Site: Hip Pain Description: Acute Mental Status Patient Orientation: Person, Time, Situation Attachments: Oxygen, Estrella Catheter, IV Transfers SCALE: Activities may be completed with or without assistive devices. 4-Drxlaabnap-lzoinbo completes the activity by him/herself with no assistance from a helper. 5-Set-up or Clean-up Assistance-helper sets up or cleans up; patient completes activity. [place] assists only prior to or following the activity. 4-Supervision or Touching Assistance-helper provides verbal cues and/or touching/steadying and/or contact guard assistance as patient completes activity. Assistance may be provided throughout the activity or intermittently. 3-Partial/Moderate Assistance-helper does LESS THAN HALF the effort. [place] lifts, holds or supports trunk or limbs, but provides less than half the effort. 2-Substantial/Maximal Assistance-helper does MORE THAN HALF the effort. [place] lifts or holds trunk or limbs and provides more than half the effort. 4-Bhcovqekx-ffhxkx does ALL the effort. Patient does none of the effort to complete the activity. Or, the assistance of 2 or more helpers is required for the patient to complete the activity. If activity was not attempted, code reason: 7-Patient Refused. 9-Not Applicable-not attempted and the patient did not perform the activity before the current illness, exacerbation or injury. 10-Not Attempted due to Environmental Limitations-(lack of equipment, weather restraints, etc.). 88-Not Attempted due to Medical Conditions or Safety Concerns. Lying to Sitting/Side of Bed(Q: 1 Sit to Stand (QC): 1 (x 2 sets and 2 ) Chair/Kel-hi-Oowph Xfer(QC): 1 (dependent with SPT bed to recliner with patient unable to assist) Weight Bearing Left Lower Extremity: Left Weight Bearing/Tolerated Gait Training Does the Patient Walk?: No and Walking Goal IS indicated Exercises Supine Ex: Ankle pumps, Quad Set, Heel Slides Supine Reps: 10 Seated Therapy Exercises: Ankle pumps, Long arc quads Seated Reps: 10 Assessment Patient is up in recliner with needs met. Patient not progressing with treatment plan. Noted weakness and inability to weight shift to advance either LE. PT Short Term Goals Short Term Goals Time Frame: Nov 29, 2021 Roll Left & Right: 3 Sit to lyin Lying to sitting on side of be: 3 Sit to stand: 3 Chair/imx-ng-qffhb transfer: 3 Toilet transfer: 3 Walk 10 feet: 2 Walk 50 feet with two turns: 2 PT Cabin Agent Goals Nursing Home Goals PT Nursing Home Goals Time Frame: Dec 27, 2021 Roll Left & Right (QC): 4 Sit to Lying (QC): 4 Lying-Sitting on Side/Bed(QC): 4 Sit to Stand (QC): 4 Chair/Wqf-lz-Tixma Xfer(QC): 4 Toilet Transfer (QC): 4 Does the Patient Walk: Yes Walk 10 feet (QC): 4 Walk 50ft with 2 Turns (QC): 4 Walk 150 ft (QC): 3 PT Plan Treatment/Plan Treatment Plan: Continue Plan of Care Treatment Plan: Bed Mobility, Education, Functional Activity Vikas, Functional Strength, Group Therapy, Gait, Safety, Therapeutic Exercise, Transfers Treatment Duration: Dec 27, 2021 Frequency: 11 times per week Estimated Hrs Per Day: .25 hour per day Patient and/or Family Agrees t: Yes Time/GCodes Time In: 912 Time Out: 926 Total Billed Treatment Time: 14 Total Billed Treatment 1 visit FA 14 min STERLING LANDAVERDE PT Nov 21, 2021 10:10
--- NOTE | 2021-11-21 11:05 | Occupational Ther Daily Note ---
OT Current Status-Daily Note Subjective Pt alert, sitting in recliner. Pt more interested in telling his story than participating in therapy session. Therapeutic listening skills used during session. Mental Status/Objective Patient Orientation: Person, Place, Time, Situation Attachments: Estrella Catheter, IV, Oxygen ADL-Treatment Therapy Code Descriptions/Definitions Functional [place] Measure: 0=Not Assessed/NA 4=Minimal Assistance 1=Total Assistance 5=Supervision or Setup 2=Maximal Assistance 6=Modified [place] 3=Moderate Assistance 7=Complete IndependenceSCALE: Activities may be completed with or without assistive devices. 3-Wbeffhppua-kxhhevk completes the activity by him/herself with no assistance from a helper. 5-Set-up or Clean-up Assistance-helper sets up or cleans up; patient completes activity. [place] assists only prior to or following the activity. 4-Supervision or Touching Assistance-helper provides verbal cues and/or touching/steadying and/or contact guard assistance as patient completes activity. Assistance may be provided throughout the activity or intermittently. 3-Partial/Moderate Assistance-helper does LESS THAN HALF the effort. [place] lifts, holds or supports trunk or limbs, but provides less than half the effort. 2-Substantial/Maximal Assistance-helper does MORE THAN HALF the effort. [place] lifts or holds trunk or limbs and provides more than half the effort. 8-Cynuzjoil-bbtabu does ALL the effort. Patient does none of the effort to complete the activity. Or, the assistance of 2 or more helpers is required for the patient to complete the activity. If activity was not attempted, code reason: 7-Patient Refused. 9-Not Applicable-not attempted and the patient did not perform the activity before the current illness, exacerbation or injury. 10-Not Attempted due to Environmental Limitations-(lack of equipment, weather restraints, etc.). 88-Not Attempted due to Medical Conditions or Safety Concerns. Other Treatment Pt able to use fine motor skills to take paper off of straw then place in cup. Pt then brought cup to mouth to drink. Pt c/o pain at L elbow and stated that he could not move it because of IV previously in crease of elbow. Pt then stated that he hadn't been able to straighten his elbow for years. Pt would only complete 1 set 5 reps of horizontal shldr abd. Pt declined to complete anymore due to fatigue and pain. Medium resistance theraband and B UE HEP given to pt for use in room. After therapy, pt sitting in recliner with call light/phone in reach. OT Clay Washer Goals Half-Way Goals Time Frame: Dec 13, 2021 Eating (QC): 5 Oral Hygiene (QC): 5 Toileting Hygiene (QC): 3 Shower/Bathe Self (QC): 3 Upper Body Dressing (QC): 4 Lower Body Dressing (QC): 2 On/Off Footwear (QC): 3 Additional Goals: 1-Demonstrate ADL Tasks, 2-Verbalize Understanding, 3- ImproveStrength/Vikas 1=Demonstrate adherence to instructed precautions during ADL tasks. 2=Patient will verbalize/demonstrate understanding of assistive tracie lor/modifications for ADL. 3=Patient will improve strength/tolerance for activity to enable patient to perform ADL's. OT Education/Plan Problem List/Assessment Assessment: Decreased Activ Tolerance, Decreased UE Strength, Impaired Self- Care Skills Discharge Recommendations Plan/Recommendations: Continue POC Treatment Plan/Plan of Care Patient would benefit from OT for education, treatment and training to promote independence in ADL's, mobility, safety and/or upper extremity function for ADL's. Plan of Care: ADL Retraining, Functional Mobility, UE Funct Exercise/Act Treatment Duration: Dec 13, 2021 Frequency: 3 times per week (3-5 times per week) Rehab Potential: Fair Time/GCodes Start Time: 10:14 Stop Time: 10:35 Total Time Billed (hr/min): 21 Billed Treatment Time 1 visit-FA 1 (21 min) KENNY BERUMEN Nov 21, 2021 11:05
[2021-11-21 11:36] VITALS: BP 130/70
--- NOTE | 2021-11-21 14:04 | Physical Therapy Daily Note ---
PT Daily Note-Current Subjective Patient in bed and adamantly declined OOB activity. Patient states, "I don't want to move anything because it hurts. If it hurts, I stop." PT educated patient on importance of increase activity and exercises to improve pain level. Pain Numeric Pain Scale: 10-Worst Possible Pain Location: Left Location Body Site: Hip Pain Description: Acute Mental Status Patient Orientation: Normal For Age Attachments: Oxygen, Estrella Catheter, IV Transfers SCALE: Activities may be completed with or without assistive devices. 5-Cuyxfddyyk-xoafogl completes the activity by him/herself with no assistance from a helper. 5-Set-up or Clean-up Assistance-helper sets up or cleans up; patient completes activity. [place] assists only prior to or following the activity. 4-Supervision or Touching Assistance-helper provides verbal cues and/or touching/steadying and/or contact guard assistance as patient completes activity. Assistance may be provided throughout the activity or intermittently. 3-Partial/Moderate Assistance-helper does LESS THAN HALF the effort. [place] lifts, holds or supports trunk or limbs, but provides less than half the effort. 2-Substantial/Maximal Assistance-helper does MORE THAN HALF the effort. [place] lifts or holds trunk or limbs and provides more than half the effort. 5-Bgwiqpqsr-eqspno does ALL the effort. Patient does none of the effort to complete the activity. Or, the assistance of 2 or more helpers is required for the patient to complete the activity. If activity was not attempted, code reason: 7-Patient Refused. 9-Not Applicable-not attempted and the patient did not perform the activity before the current illness, exacerbation or injury. 10-Not Attempted due to Environmental Limitations-(lack of equipment, weather restraints, etc.). 88-Not Attempted due to Medical Conditions or Safety Concerns. Roll Left & Right (QC): 1 Patient repositioned up in bed dependent assist of 2. Weight Bearing Left Lower Extremity: Left Weight Bearing/Tolerated Exercises Supine Ex: Ankle pumps, Heel Slides Supine Reps: 15 (AAROM with patient resisting all ROM due to pain. bilaterally) Assessment Current Status: Poor Progress Patient not progressing with treatment plan. Patient is resistive with all mobility and holds self in rigid position total body. Education with patient on importance of moving all joints to improve mobility. Patient resists education. PT Short Term Goals Short Term Goals Time Frame: Nov 29, 2021 Roll Left & Right: 3 Sit to lyin Lying to sitting on side of be: 3 Sit to stand: 3 Chair/rhq-fb-sqpfd transfer: 3 Toilet transfer: 3 Walk 10 feet: 2 Walk 50 feet with two turns: 2 PT Electroneurodiagnostic Technologist Goals Electroneurodiagnostic Technologist Goals PT Electroneurodiagnostic Technologist Goals Time Frame: Dec 27, 2021 Roll Left & Right (QC): 4 Sit to Lying (QC): 4 Lying-Sitting on Side/Bed(QC): 4 Sit to Stand (QC): 4 Chair/Qde-pm-Uvnyt Xfer(QC): 4 Toilet Transfer (QC): 4 Does the Patient Walk: Yes Walk 10 feet (QC): 4 Walk 50ft with 2 Turns (QC): 4 Walk 150 ft (QC): 3 PT Plan Treatment/Plan Treatment Plan: Continue Plan of Care Treatment Plan: Bed Mobility, Education, Functional Activity Vikas, Functional Strength, Group Therapy, Gait, Safety, Therapeutic Exercise, Transfers Treatment Duration: Dec 27, 2021 Frequency: 11 times per week Estimated Hrs Per Day: .25 hour per day Patient and/or Family Agrees t: Yes Time/GCodes Time In: 1343 Time Out: 1355 Total Billed Treatment Time: 12 Total Billed Treatment 1 visit EX 12 min STERLING LANDAVERDE PT Nov 21, 2021 14:04
[2021-11-21 16:12] VITALS: BP 139/73
--- NOTE | 2021-11-21 16:44 | Cardiology Progress Note ---
Progress Note-Cardiology Events since last exam Date Seen by Provider: Nov 21, 2021 Time Seen by Provider: 16:39 Events since last exam I am following him due to atrial fibrillation and heart failure. His breathing is improved today. He actually skipped a respiratory treatment earlier today. He denies chest discomfort, palpitations, or syncope. He has persistent pedal edema which is unchanged. Certain portions of this document may have been dictated utilizing voice recognition technology. Inherent to this technology, typographical and grammatical errors may exist. As much as I am diligent to identify and correct these mistakes, some errors may remain in the document. Vitals Last set of Vitals Signs Vital Signs 11/21/21 11/21/21 10:58 16:12 Temp 36.4 Pulse 76 Resp 18 B/P (MAP) 139/73 (95) Pulse Ox 96 O2 Delivery Nasal Cannula O2 Flow Rate 2.00 FiO2 28 Labs Labs Laboratory Tests 11/21/21 05:30 Exam Vital Signs Vital Signs Date Time Temp Pulse Resp B/P (MAP) Pulse Ox O2 Delivery O2 Flow Rate FiO2 11/21/21 16:12 36.4 76 18 139/73 (95) 96 Nasal Cannula 2.00 11/21/21 10:58 28 Physical Exam General: Alert. No acute distress. Eye: No xanthelasma. HENT: Normocephalic. Neck: Jugular venous pressure does not appear elevated. Respiratory: Lungs are clear to auscultation. Respirations are non-labored. Breath sounds are equal. Symmetrical chest wall expansion. Cardiovascular: Normal rate. Regular rhythm. No murmur. No gallop. 1+ bilateral pedal edema. Gastrointestinal: Soft. Normal bowel sounds. Skin: Warm. Dry. Neurologic: Alert and oriented to person, place, time. Cranial nerves 3-11 grossly intact. Psychiatric: Cooperative. Appropriate mood & affect. Labs Laboratory Tests Test 11/21/21 05:30 Range/Units Hemoglobin 7.2 L 13.3-17.7 g/dL Hematocrit 23 L 40-54 % Diagnosis/Problems Diagnosis/Problems (1) Paroxysmal atrial fibrillation Status: Chronic Assessment & Plan: Telemetry has shown sinus rhythm. He is on amiodarone for rhythm management, diltiazem for rate control and apixaban for stroke prophylaxis. He was on a somewhat high dose of amiodarone. He had been taking 200 mg of amiodarone twice daily since August 2019. I have taken the liberty of decreasing this to 200 mg daily to help reduce the risk of potential toxicities from long-term use of amiodarone. One might consider decreasing this further as an outpatient. I will leave this up to the discretion of his regular readers' advisory service librarian after discharge. (2) Chronic heart failure with preserved ejection fraction (HFpEF) Assessment & Plan: He seems to be clinically compensated at this point in time. He is getting some intravenous fluids intermittently. I would be cautious with intravenous fluids or he may develop volume overload. I suspect his chronic shortness of breath is mainly due to chronic obstructive pulmonary disease. (3) Coronary artery disease without angina pectoris Assessment & Plan: He has not been having any angina. He is not taking aspirin because he is on apixaban for the atrial fibrillation. His LDL level is actually quite good on no cholesterol medication. (4) Primary hypertension Assessment & Plan: Blood pressures are intermittently elevated but better today. Some of this may be related to pain he has been experiencing after his fall. (5) Mixed hyperlipidemia Assessment & Plan: He has a reported history of hyperlipidemia but has not been on medication for this. His LDL level is currently under good control on no medication. This will need to be followed after discharge. (6) COPD without exacerbation Status: Chronic Assessment & Plan: This condition is most likely what contributes most to his chronic shortness of breath. BUD LOBO JR, MD Nov 21, 2021 16:44
--- NOTE | 2021-11-21 17:27 | Progress Note - Hospitalist ---
Subjective HPI/CC On Admission Date Seen by Provider: Nov 21, 2021 Time Seen by Provider: 10:20 This is a 76-year-old white male resident of [facility]. He thinks that he had both an oxycodone and hydrocodone and a Xanax before going to bed last night which made him very unstable on his feet. He says he fell striking his left hip and in fact does have a displaced intertrochanteric femoral neck fracture. The patient has been maintained on Eliquis for paroxysmal atrial fibrillation and this is being held so that he is surgery can be done under spinal anesthesia. Surgery is being planned for day after tomorrow. Appreciate Ortho and cardiology consultations. At the time of my interview the patient is awake and alert and other than complaining of some left hip pain and chronic back pain he seems to be in fair spirits Subjective/Events-last exam He is having pain. He is sitting in his chair. He denies shortness of breath. He has no other complaints. Objective Exam Vital Signs Vital Signs Date Time Temp Pulse Resp B/P (MAP) Pulse Ox O2 Delivery O2 Flow Rate FiO2 11/21/21 16:12 36.4 76 18 139/73 (95) 96 Nasal Cannula 2.00 11/21/21 10:58 28 Capillary Refill : Less Than 3 Seconds General Appearance: No Apparent Distress, WD/WN Respiratory: Lungs Clear, Normal Breath Sounds, No Respiratory Distress Cardiovascular: Regular Rate, Rhythm, No Murmur Gastrointestinal: Normal Bowel Sounds, Non Tender, Soft Extremity: Normal Inspection, Non Tender, No Pedal Edema Neurologic/Psychiatric: Alert, Motor Weakness Skin: Normal Color, Warm/Dry Results/Procedures Lab Laboratory Tests 11/21/21 05:30 Patient resulted labs reviewed. Imaging: Reviewed Imaging Report Assessment/Plan Assessment and Plan Assess & Plan/Chief Complaint Hip fracture s/p surgical repair 11/18 Increase pain regimen Bowel regimen Incentive spirometer PT/OT IRF denied Plan for SNF on Thursday AFib Continue Eliquis CKD Monitor Anemia Monitor COPD CAD Chronic back pain HTN HFpEF Continue home meds DVT prophylaxis: already receiving therapeutic anticoagulation SARA on CKD, resolved Pneumonia, resolved Diagnosis/Problems Diagnosis/Problems (1) Hip fracture, left Status: Acute (2) Pneumonia Status: Resolved Resolution Date/Time: 11/21/21 @ 17:26 (3) Acute kidney injury superimposed on chronic kidney disease Status: Resolved Resolution Date/Time: 11/21/21 @ 17:26 (4) Anemia Status: Acute (5) Paroxysmal atrial fibrillation Status: Chronic (6) CKD (chronic kidney disease) Status: Chronic Qualifiers: Chronic kidney disease stage: stage 3 (moderate) Chronic kidney disease stage 3 subtype: stage 3a (GFR 45-59) Qualified Codes: N18.31 - Chronic kidney disease, stage 3a Clinical Quality Measures DVT/VTE Risk/Contraindication: Contraindications-Pharm: Other *list below* Other: surgery DEMARIO TO MD Nov 21, 2021 17:26
[2021-11-21 20:00] VITALS: BP 142/75
[2021-11-21] MEDS: GABAPENTIN 300 MG (NEURONTIN) CAP PO SCH (20:09)
[2021-11-21] MEDS: ALPRAZolam 0.25 MG (XANAX) TAB PO PRN (21:27)
[2021-11-21 23:53] VITALS: BP 128/62
[2021-11-22] VITALS (8 sets, daily range): BP systolic 96–134; BP diastolic 60–77
[2021-11-22] MEDS: morphine INJ 4 MG/ML 1 ML (VIAL/SYRINGE) IV PRN (03:06)
[2021-11-22] MEDS: LEVOTHYROXINE 25 MCG (LEVOTHROID) TAB PO SCH (06:28)
[2021-11-22 07:32] LABS: HEMOGLOBIN 6.4 g/dL (13.3-17.7)
[2021-11-22] MEDS ORDERED: NS IV 500 ML 500 ML IV SCH (07:45)
[2021-11-22] MEDS: dilTIAZem120 MG (CARDIZEM CD) CAP PO SCH (08:35)
[2021-11-22] MEDS: NS IV 1000 ML 1,000 ML IV SCH (08:35)
[2021-11-22] MEDS: APIXABAN 5 MG (ELIQUIS) TABLET PO SCH ×2 (08:36→20:58)
[2021-11-22] MEDS: polyethylene glycoL POWDER 17 GM (MIRALAX) PACK PO SCH ×2 (08:37→20:58)
[2021-11-22] MEDS: AMIODARONE 200 MG (CORDARONE) TAB PO SCH (08:37)
[2021-11-22] MEDS: amLODIPine 5 MG (NORVASC) TAB PO SCH (08:37)
[2021-11-22] MEDS: SENNA W/DOCUSATE (SENOKOT S) TABLET PO SCH ×2 (08:37→20:58)
[2021-11-22] MEDS: RT-ALBUTEROL/IPRATROPIUM 3 ML (DUONEB) VIAL INH SCH ×2 (08:37→21:46)
--- NOTE | 2021-11-22 08:38 | Occupational Ther Daily Note ---
OT Current Status-Daily Note Subjective Pt laying in bed, agreeable to OT tx. Mental Status/Objective Patient Orientation: Person, Place, Situation ADL-Treatment Therapy Code Descriptions/Definitions Functional [place] Measure: 0=Not Assessed/NA 4=Minimal Assistance 1=Total Assistance 5=Supervision or Setup 2=Maximal Assistance 6=Modified [place] 3=Moderate Assistance 7=Complete IndependenceSCALE: Activities may be completed with or without assistive devices. 8-Dxypskcfyd-dllrdxy completes the activity by him/herself with no assistance from a helper. 5-Set-up or Clean-up Assistance-helper sets up or cleans up; patient completes activity. [place] assists only prior to or following the activity. 4-Supervision or Touching Assistance-helper provides verbal cues and/or touching/steadying and/or contact guard assistance as patient completes activity. Assistance may be provided throughout the activity or intermittently. 3-Partial/Moderate Assistance-helper does LESS THAN HALF the effort. [place] lifts, holds or supports trunk or limbs, but provides less than half the effort. 2-Substantial/Maximal Assistance-helper does MORE THAN HALF the effort. [place] lifts or holds trunk or limbs and provides more than half the effort. 0-Ttppwmxtz-jrmrhg does ALL the effort. Patient does none of the effort to complete the activity. Or, the assistance of 2 or more helpers is required for the patient to complete the activity. If activity was not attempted, code reason: 7-Patient Refused. 9-Not Applicable-not attempted and the patient did not perform the activity before the current illness, exacerbation or injury. 10-Not Attempted due to Environmental Limitations-(lack of equipment, weather restraints, etc.). 88-Not Attempted due to Medical Conditions or Safety Concerns. Eating (QC): 4 (Pt able to reach cup on tray table and take a drink.) Other Treatment Pt laying in bed, requests bed rollins. Pt rolled towards R side (max A), bed rollins placed. Pt attempted to have a BM, but unable. Pt rolled towards R side to get off of bed rollins. Pt transferred supine to sit EOB, total assist x2. Total assist transfer from EOB to recliner. Post tx, pt in recliner, call light in reach and all needs met. Education OT Patient Education: Correct positioning, Energy conservation, Modified ADL techniques, Progress toward Goal/Update tx plan, Purpose of tx/functional activities, Rehab process Teaching Recipient: Patient Teaching Methods: Discussion Response to Teaching: Verbalize Understanding OT Market Superintendent Goals Correction Goals Time Frame: Dec 13, 2021 Eating (QC): 5 Oral Hygiene (QC): 5 Toileting Hygiene (QC): 3 Shower/Bathe Self (QC): 3 Upper Body Dressing (QC): 4 Lower Body Dressing (QC): 2 On/Off Footwear (QC): 3 Additional Goals: 1-Demonstrate ADL Tasks, 2-Verbalize Understanding, 3- ImproveStrength/Vikas 1=Demonstrate adherence to instructed precautions during ADL tasks. 2=Patient will verbalize/demonstrate understanding of assistive devices/modifications for ADL. 3=Patient will improve strength/tolerance for activity to enable patient to perform ADL's. OT Education/Plan Problem List/Assessment Assessment: Decreased Activ Tolerance, Decreased Safety Aware, Decreased UE Strength, Dependent Transfers, Impaired Bed Mobility, Impaired Funct Balance, Impaired I ADL's, Impaired Self-Care Skills Discharge Recommendations Plan/Recommendations: Continue POC Treatment Plan/Plan of Care Patient would benefit from OT for education, treatment and training to promote independence in ADL's, mobility, safety and/or upper extremity function for ADL's. Plan of Care: ADL Retraining, Functional Mobility, UE Funct Exercise/Act Treatment Duration: Dec 13, 2021 Frequency: 3 times per week (3-5 times per week) Rehab Potential: Fair Time/GCodes Start Time: 07:58 Stop Time: 08:14 Total Time Billed (hr/min): 16 Billed Treatment Time 1, ADL ASHANTI DUARTE OT Nov 22, 2021 08:38
--- NOTE | 2021-11-22 08:40 | Physical Therapy Daily Note ---
PT Daily Note-Current Subjective Patient in bed pre tx, agrees to PT, has 8/10 pain in left hip. Appearance Patient in recliner post tx with nurse call, phone, tray, all needs met. Mental Status Patient Orientation: Person, Place, Situation Attachments: Oxygen, Estrella Catheter, IV Transfers SCALE: Activities may be completed with or without assistive devices. 7-Xaivoplogp-eilcrqw completes the activity by him/herself with no assistance from a helper. 5-Set-up or Clean-up Assistance-helper sets up or cleans up; patient completes activity. [place] assists only prior to or following the activity. 4-Supervision or Touching Assistance-helper provides verbal cues and/or touching/steadying and/or contact guard assistance as patient completes ac tivity. Assistance may be provided throughout the activity or intermittently. 3-Partial/Moderate Assistance-helper does LESS THAN HALF the effort. [place] lifts, holds or supports trunk or limbs, but provides less than half the effort. 2-Substantial/Maximal Assistance-helper does MORE THAN HALF the effort. [place] lifts or holds trunk or limbs and provides more than half the effort. 4-Qyclhytvr-jeirln does ALL the effort. Patient does none of the effort to complete the activity. Or, the assistance of 2 or more helpers is required for the patient to complete the activity. If activity was not attempted, code reason: 7-Patient Refused. 9-Not Applicable-not attempted and the patient did not perform the activity before the current illness, exacerbation or injury. 10-Not Attempted due to Environmental Limitations-(lack of equipment, weather restraints, etc.). 88-Not Attempted due to Medical Conditions or Safety Concerns. Roll Left & Right (QC): 2 Lying to Sitting/Side of Bed(Q: 1 Sit to Stand (QC): 1 Chair/Dme-mr-Wxxns Xfer(QC): 1 Patient states he needs to use the bedpan, rolls with max assist and bedpan is placed, he ended up not being able to do anything. Roll again to remove bedpan and dependent supine to sit, dependent sit to stand and stand pivot transfer. Weight Bearing Left Lower Extremity: Left Weight Bearing/Tolerated Exercises Seated Therapy Exercises: Ankle pumps, Long arc quads Seated Reps: 20 Treatments bed mobility and transfers, LE strengthening Assessment Current Status: Poor Progress patient still dependent for mobility PT Short Term Goals Short Term Goals Time Frame: Nov 29, 2021 Roll Left & Right: 3 Sit to lyin Lying to sitting on side of be: 3 Sit to stand: 3 Chair/coy-sj-uvfbw transfer: 3 Toilet transfer: 3 Walk 10 feet: 2 Walk 50 feet with two turns: 2 PT Battery Plate Assembler Goals Battery Plate Assembler Goals PT Battery Plate Assembler Goals Time Frame: Dec 27, 2021 Roll Left & Right (QC): 4 Sit to Lying (QC): 4 Lying-Sitting on Side/Bed(QC): 4 Sit to Stand (QC): 4 Chair/Epo-zi-Jqmuc Xfer(QC): 4 Toilet Transfer (QC): 4 Does the Patient Walk: Yes Walk 10 feet (QC): 4 Walk 50ft with 2 Turns (QC): 4 Walk 150 ft (QC): 3 PT Plan Problem List Problem List: Activity Tolerance, Functional Strength, Safety, Balance, Gait, Transfer, Bed Mobility, ROM Treatment/Plan Treatment Plan: Continue Plan of Care Treatment Plan: Bed Mobility, Education, Functional Activity Vikas, Functional Strength, Group Therapy, Gait, Safety, Therapeutic Exercise, Transfers Treatment Duration: Dec 27, 2021 Frequency: 11 times per week Estimated Hrs Per Day: .25 hour per day Patient and/or Family Agrees t: Yes Safety Risks/Education Patient Education: Transfer Techniques, Correct Positioning, Safety Issues Teaching Recipient: Patient Teaching Methods: Demonstration, Discussion Response to Teaching: Reinforcement Needed Time/GCodes Time In: 0758 Time Out: 0814 Total Billed Treatment Time: 16 Total Billed Treatment 1 visit FA ALMA DELIA WONG PT Nov 22, 2021 08:40
[2021-11-22] MEDS ORDERED: NS IV 500 ML 500 ML ONE (10:09)
--- NOTE | 2021-11-22 10:10 | Progress Note - Ortho ---
Progress Note Subjective Date of Exam 11/22/21 Chief Complaint Ortho POD #4 HPI/Events since last exam Essentially declining therapeutic efforts secondary to pain, asking about pain medication Review of Systems - Allergies: Coded Allergies: Sulfa (Sulfonamide Antibiotics) (Verified Allergy, Unknown, 10/04/19) Home Meds Reported Medications Oxycodone Myristate (Xtampza ER) 18 Mg Cap.spr.12, 18 MG PO Q12H, CAP 11/18/21 Tiotropium [place] (Spiriva Respimat 2.5MCG/ACTUATION) 4 Gm Mist.inhal, 2 PUFF INH DAILY, EA 11/18/21 Sennosides (Senna Lax) 8.6 Mg Tablet, 8.6 MG PO DAILY PRN for CONSTIPATION-5TH LINE, TAB 11/18/21 Multivitamin (Multivitamin) 1 Each Tablet, 1 EACH PO DAILY, TAB 11/18/21 Metolazone (Metolazone) 5 Mg Tablet, 5 MG PO MO,WE,FR, TAB 11/18/21 Melatonin (Melatonin) 3 Mg Tablet, 3 MG PO HS, TAB 11/18/21 Levothyroxine Sodium (Levothyroxine Sodium) 25 Mcg Tablet, 25 MCG PO DAILY, TAB 11/18/21 Hydrocodone/Acetaminophen (Hydrocodone-Acetamin 5-325 mg) 1 Each Tablet, 1-2 EA PO Q6H PRN for PAIN-MODERATE (5-7), TAB 11/18/21 Polyethylene Glycol 3350 (Miralax) 17 Gm Powd.pack, 17 GM PO DAILY, EACH 11/18/21 Gabapentin (Neurontin) 300 Mg Capsule, 300 MG PO HS, CAP 11/18/21 Furosemide (Furosemide) 40 Mg Tablet, 40 MG PO 1200, TAB 11/18/21 Docusate Sodium (Docusate Sodium) 100 Mg Capsule, 100 MG PO BID, CAP 11/18/21 ALPRAZolam (ALPRAZolam) 0.25 Mg Tablet, 0.25 MG PO DAILY, TAB 11/18/21 ALPRAZolam (ALPRAZolam) 0.25 Mg Tablet, 0.25 MG PO Q8H PRN for ANXIETY, TAB 11/18/21 Potassium Chloride (Klor-Con 10) 10 Meq Tablet.er, 10 MEQ PO DAILY, TAB 04/09/20 Fluticasone Propion/Salmeterol ([place]ela 250-50 Inhub) 1 Each Blst.w.dev, 1 PUFF IN BID, EA 04/09/20 Furosemide (Lasix) 80 Mg Tablet, 80 MG PO DAILY, TAB 04/09/20 Albuterol Sulfate (Albuterol Sulfate) 2.5 Mg/0.5 Ml Vial.neb, 2.5 MG NEB Q6H PRN for SHORTNESS OF BREATH, EA 10/04/19 Apixaban (Eliquis) 5 Mg Tablet, 5 MG PO BID, TAB 10/04/19 Diltiazem HCl (Diltiazem 24Hr ER) 120 Mg Cap.er.24h, 120 MG PO DAILY, CAP 10/04/19 Amiodarone HCl (Amiodarone HCl) 200 Mg Tablet, 200 MG PO BID, TAB 10/04/19 Albuterol Sulfate (PROAIR HFA) 8.5 Gm Hfa.aer.ad, 2 PUFF IH Q4H PRN for SHORTNESS OF BREATH, EA 07/09/16 Enalapril Maleate (Enalapril Maleate) 20 Mg Tablet, 20 MG PO DAILY, TAB 07/09/16 Discontinued Reported Medications Bisacodyl (Dulcolax) 5 Mg Tablet.dr, 5 MG PO DAILY PRN for CONSTIPATION-4TH LINE, TAB 04/09/20 Acetaminophen (8Hr Arthritis Pain) 650 Mg Tablet.er, 650-1300 MG PO Q8H PRN for PAIN-MILD (1-4), TAB 04/09/20 Amlodipine Besylate (Amlodipine Besylate) 5 Mg Tablet, 5 MG PO DAILY, TAB 04/09/20 Buspirone HCl (Buspirone HCl) 5 Mg Tablet, 5 MG PO TID PRN for ANXIETY, TAB 04/09/20 Metoprolol Tartrate (Metoprolol Tartrate) 100 Mg Tablet, 100 MG PO BID, TAB 08/15/19 Discontinued Scripts Prednisone (Prednisone) 20 Mg Tab, 40 MG PO DAILY, #8 TAB 0 Refills Prov:EMILIANA FLOREZ MD 05/10/20 Cefdinir (Cefdinir) 300 Mg Capsule, 300 MG PO BID, #6 CAP Prov:PATRICIA REID MD 04/19/20 Metolazone (Metolazone) 5 Mg Tablet, 5 MG PO DAILY, #30 TAB Prov:PATRICIA REID MD 04/19/20 Objective Exam Left Hip: Dressing C/D/I, +DF of ankle, calf soft/NT Vital Signs Vital Signs Date Time Temp Pulse Resp B/P (MAP) Pulse Ox O2 Delivery O2 Flow Rate FiO2 11/22/21 08:37 98 Nasal Cannula 2.00 11/22/21 08:30 37.0 56 18 121/65 (83) 98 Nasal Cannula 2.00 11/22/21 08:00 Nasal Cannula 2.00 11/22/21 07:00 56 11/22/21 03:07 37.4 60 18 132/60 (84) 94 Nasal Cannula 2.00 11/22/21 01:00 54 11/21/21 23:53 37.4 58 18 128/62 (84) 95 Nasal Cannula 2.00 11/21/21 20:43 94 Nasal Cannula 2.00 11/21/21 20:00 36.8 60 18 142/75 (97) 94 Nasal Cannula 2.00 11/21/21 20:00 Nasal Cannula 2.00 11/21/21 19:00 61 11/21/21 16:12 36.4 76 18 139/73 (95) 96 Nasal Cannula 2.00 11/21/21 12:37 62 11/21/21 11:36 36.8 58 18 130/70 (90) 99 Nasal Cannula 2.00 11/21/21 10:58 74 93 28 11/21/21 10:58 93 Nasal Cannula 2.00 I & O 11/22/21 07:00 Intake Total 2030 ml Output Total 1200 ml Balance 830 ml Lab Results Laboratory Tests 11/22/21 07:26: Hemoglobin 6.4*L, Hematocrit 21L Microbiology 11/16/21 MRSA Screen - Final, Complete MRSA not isolated 11/15/21 Blood Culture - Final, Complete No growth Assessment and Plan Assessment L FN Fx s/p Bipolar Problem List L FN Fx s/p Bipolar Plan Continue therapy efforts; no progress secondary to lack of participation/effort Given amount of pain medication he is on, concerned about any increase Will require potential longterm placement Final Diagonsis L FN Fx s/p Bipolar Level of the visit: Level 3 (postop global) Clinical Quality Measures DVT/VTE Risk/Contraindication: Contraindications-Pharm: Other *list below* Other: surgery DIPAK,GARCIA S MD Nov 22, 2021 10:10
--- NOTE | 2021-11-22 10:54 | Cardiology Progress Note ---
Progress Note-Cardiology Events since last exam Date Seen by Provider: Nov 22, 2021 Time Seen by Provider: 10:50 Events since last exam I am following him due to atrial fibrillation and heart failure. He is curr ently receiving a blood transfusion due to a drop in his hemoglobin level over the past 24 hours. He denies chest discomfort, dyspnea, palpitations, or syncope. No change in his chronic, bilateral lower extremity edema. Certain portions of this document may have been dictated utilizing voice jose antonio gnition technology. Inherent to this technology, typographical and grammatical errors may exist. As much as I am diligent to identify and correct these mistakes, some errors may remain in the document. Vitals Last set of Vitals Signs Vital Signs 11/21/21 11/22/21 10:58 10:34 Temp 37.1 Pulse 56 Resp 20 B/P (MAP) 96/60 Pulse Ox 96 O2 Delivery Nasal Cannula O2 Flow Rate 2.00 FiO2 28 Labs Labs Laboratory Tests 11/22/21 07:26 Exam Vital Signs Vital Signs Date Time Temp Pulse Resp B/P (MAP) Pulse Ox O2 Delivery O2 Flow Rate FiO2 11/22/21 10:34 37.1 56 20 96/60 96 Nasal Cannula 2.00 11/21/21 10:58 28 Physical Exam General: Alert. No acute distress. Eye: No xanthelasma. HENT: Normocephalic. Neck: Jugular venous pressure does not appear elevated. Respiratory: Lungs are clear to auscultation. Respirations are non-labored. Breath sounds are equal. Symmetrical chest wall expansion. Cardiovascular: Normal rate. Regular rhythm. 2/6 systolic ejection murmur. No gallop. 1+ bilateral pretibial edema. Gastrointestinal: Soft. Normal bowel sounds. Skin: Warm. Dry. Neurologic: Alert and oriented to person, place, time. Cranial nerves 3-11 grossly intact. Psychiatric: Cooperative. Appropriate mood & affect. Labs Laboratory Tests Test 11/22/21 07:26 Range/Units Hemoglobin 6.4 *L 13.3-17.7 g/dL Hematocrit 21 L 40-54 % Diagnosis/Problems Diagnosis/Problems (1) Paroxysmal atrial fibrillation Status: Chronic Assessment & Plan: He appears to be remaining in sinus rhythm. He is on amiodarone for rhythm management, diltiazem for rate control and apixaban for stroke prophylaxis. He had been taking 200 mg of amiodarone twice daily since August 2019. This will increase the risk of toxic side effects from amiodarone. I have taken the liberty of decreasing this to 200 mg daily to help reduce the risk of potential toxicities from long-term use of amiodarone. One might consider decreasing this further as an outpatient. I will leave this up to the discretion of his regular blood bank order control clerk after discharge. (2) Chronic heart failure with preserved ejection fraction (HFpEF) Assessment & Plan: He seems to be clinically compensated at this point in time. He is getting some intravenous fluids intermittently. I would be cautious with intravenous fluids or he may develop volume overload. I suspect his chronic shortness of breath is mainly due to chronic obstructive pulmonary disease. (3) Coronary artery disease without angina pectoris Assessment & Plan: He has not been having any angina. He is not taking aspirin because he is on apixaban for the atrial fibrillation. His LDL level is actually quite good on no cholesterol medication. (4) Primary hypertension Assessment & Plan: Blood pressures had been intermittently elevated but have been better over the past 48 hours. (5) Mixed hyperlipidemia Assessment & Plan: He has a reported history of hyperlipidemia but has not been on medication for this. His LDL level is currently under good control on no medication. This will need to be followed after discharge. (6) COPD without exacerbation Status: Chronic Assessment & Plan: I suspect this is most likely what contributes most to his chronic shortness of breath. BUD LOBO JR, MD Nov 22, 2021 10:54
--- NOTE | 2021-11-22 11:10 | Physical Therapy Daily Note ---
PT Daily Note-Current Subjective Patient in recliner pre tx, agrees reluctantly to PT, has 9/10 pain in left hip. Appearance Patient in recliner post tx with nurse call, phone, tray, all needs met. Mental Status Patient Orientation: Person, Place, Situation Attachments: Oxygen, [place] Catheter, IV Transfers SCALE: Activities may be completed with or without assistive devices. 5-Hiywfcctch-dsvumhb completes the activity by him/herself with no assistance from a helper. 5-Set-up or Clean-up Assistance-helper sets up or cleans up; patient completes activity. [place] assists only prior to or following the activity. 4-Supervision or Touching Assistance-helper provides verbal cues and/or touching/steadying and/or contact guard assistance as patient completes activity. Assistance may be provided throughout the activity or intermittently. 3-Partial/Moderate Assistance-helper does LESS THAN HALF the effort. [place] lifts, holds or supports trunk or limbs, but provides less than half the effort. 2-Substantial/Maximal Assistance-helper does MORE THAN HALF the effort. [place] lifts or holds trunk or limbs and provides more than half the effort. 4-Sklruzyop-fyqmeu does ALL the effort. Patient does none of the effort to complete the activity. Or, the assistance of 2 or more helpers is required for the patient to complete the activity. If activity was not attempted, code reason: 7-Patient Refused. 9-Not Applicable-not attempted and the patient did not perform the activity before the current illness, exacerbation or injury. 10-Not Attempted due to Environmental Limitations-(lack of equipment, weather restraints, etc.). 88-Not Attempted due to Medical Conditions or Safety Concerns. Sit to Stand (QC): 1 Patient attempted to stand twice with assist of 2 therapists, cues for hand placement and positioning. Was able to get patient standing about 70% of the way and stood for about 20 seconds each time, the therapists lifting with both max assist the whole time. Weight Bearing Left Lower Extremity: Left Weight Bearing/Tolerated Treatments standing Assessment Current Status: Poor Progress Patient needs a lot of encouragement to participate, doesn't seem willing to give much effort. PT Short Term Goals Short Term Goals Time Frame: Nov 29, 2021 Roll Left & Right: 3 Sit to lyin Lying to sitting on side of be: 3 Sit to stand: 3 Chair/wyg-jm-izaol transfer: 3 Toilet transfer: 3 Walk 10 feet: 2 Walk 50 feet with two turns: 2 PT Senior Living Goals Senior Living Goals PT Unit Assembler Goals Time Frame: Dec 27, 2021 Roll Left & Right (QC): 4 Sit to Lying (QC): 4 Lying-Sitting on Side/Bed(QC): 4 Sit to Stand (QC): 4 Chair/Kks-yl-Rvkaw Xfer(QC): 4 Toilet Transfer (QC): 4 Does the Patient Walk: Yes Walk 10 feet (QC): 4 Walk 50ft with 2 Turns (QC): 4 Walk 150 ft (QC): 3 PT Plan Problem List Problem List: Activity Tolerance, Functional Strength, Safety, Balance, Gait, Transfer, Bed Mobility, ROM Treatment/Plan Treatment Plan: Continue Plan of Care Treatment Plan: Bed Mobility, Education, Functional Activity Vikas, Functional Strength, Group Therapy, Gait, Safety, Therapeutic Exercise, Transfers Treatment Duration: Dec 27, 2021 Frequency: 11 times per week Estimated Hrs Per Day: .25 hour per day Patient and/or Family Agrees t: Yes Safety Risks/Education Patient Education: Correct Positioning, Safety Issues Teaching Recipient: Patient Teaching Methods: Demonstration, Discussion Response to Teaching: Reinforcement Needed Time/GCodes Time In: 1052 Time Out: 1103 Total Billed Treatment Time: 11 Total Billed Treatment 1 visit FA ALMA DELIA CERRATO PT Nov 22, 2021 11:10
--- NOTE | 2021-11-22 16:28 | Progress Note - Hospitalist ---
Subjective HPI/CC On Admission Date Seen by Provider: Nov 22, 2021 Time Seen by Provider: 10:20 This is a 76-year-old white male resident of [facility]. He thinks that he had both an oxycodone and hydrocodone and a Xanax before going to bed last night which made him very unstable on his feet. He says he fell striking his left hip and in fact does have a displaced intertrochanteric femoral neck fracture. The patient has been maintained on Eliquis for paroxysmal atrial fibrillation and this is being held so that he is surgery can be done under spinal anesthesia. Surgery is being planned for day after tomorrow. Appreciate Ortho and cardiology consultations. At the time of my interview the patient is awake and alert and other than complaining of some left hip pain and chronic back pain he seems to be in fair spirits Subjective/Events-last exam He thinks he is not doing well. He is having pain. He is not short of breath. He is not having chest pain. He has been eating and drinking. Objective Exam Vital Signs Vital Signs Date Time Temp Pulse Resp B/P (MAP) Pulse Ox O2 Delivery O2 Flow Rate FiO2 11/22/21 13:01 37.1 60 18 103/60 98 Nasal Cannula 2.00 11/21/21 10:58 28 Capillary Refill : Less Than 3 Seconds General Appearance: No Apparent Distress, Obese Respiratory: Lungs Clear, Normal Breath Sounds, No Respiratory Distress Cardiovascular: Regular Rate, Rhythm, No Edema, No Murmur Gastrointestinal: Normal Bowel Sounds, Non Tender, Soft Extremity: Normal Inspection, Non Tender, No Pedal Edema Neurologic/Psychiatric: Alert, Oriented x3, Motor Weakness Skin: Normal Color, Warm/Dry Results/Procedures Lab Laboratory Tests 11/22/21 07:26 Patient resulted labs reviewed. Imaging: Reviewed Imaging Report Assessment/Plan Assessment and Plan Assess & Plan/Chief Complaint Hip fracture s/p surgical repair 11/18 Continue pain regimen Bowel regimen Incentive spirometer PT/OT IRF denied Plan for SNF on Thursday Postoperative anemia Acute blood loss anemia Transfuse 1 unit PRBC Monitor AFib Continue Eliquis CKD Monitor COPD CAD Chronic back pain HTN HFpEF Continue home meds DVT prophylaxis: already receiving therapeutic anticoagulation SARA on CKD, resolved Pneumonia, resolved Diagnosis/Problems Diagnosis/Problems (1) Hip fracture, left Status: Acute (2) Pneumonia Status: Resolved Resolution Date/Time: 11/21/21 @ 17:26 (3) Acute kidney injury superimposed on chronic kidney disease Status: Resolved Resolution Date/Time: 11/21/21 @ 17:26 (4) Anemia Status: Acute (5) Paroxysmal atrial fibrillation Status: Chronic (6) CKD (chronic kidney disease) Status: Chronic Qualifiers: Chronic kidney disease stage: stage 3 (moderate) Chronic kidney disease stage 3 subtype: stage 3a (GFR 45-59) Qualified Codes: N18.31 - Chronic kidney disease, stage 3a Clinical Quality Measures DVT/VTE Risk/Contraindication: Contraindications-Pharm: Other *list below* Other: surgery DEMARIO TO MD Nov 22, 2021 16:28
[2021-11-22] MEDS: GABAPENTIN 300 MG (NEURONTIN) CAP PO SCH (20:58)
[2021-11-23] VITALS (8 sets, daily range): BP systolic 109–133; BP diastolic 57–70
[2021-11-23] MEDS: NS IV 1000 ML 1,000 ML IV SCH (01:47)
[2021-11-23 05:33] LABS: HEMOGLOBIN 6.6 g/dL (13.3-17.7)
[2021-11-23 06:05] LABS: POTASSIUM 3.7 MMOL/L (3.6-5.0)
[2021-11-23 06:06] LABS: CALCIUM 7.9 MG/DL (8.5-10.1)
[2021-11-23 06:10] LABS: CREATININE SERUM 1.16 MG/DL (0.60-1.30)
[2021-11-23] MEDS: LEVOTHYROXINE 25 MCG (LEVOTHROID) TAB PO SCH (06:40)
[2021-11-23] MEDS: RT-ALBUTEROL/IPRATROPIUM 3 ML (DUONEB) VIAL INH SCH ×2 (07:37→21:21)
[2021-11-23] MEDS ORDERED: NS IV 500 ML 500 ML IV SCH (07:45)
[2021-11-23] MEDS: amLODIPine 5 MG (NORVASC) TAB PO SCH (09:05)
[2021-11-23] MEDS: APIXABAN 5 MG (ELIQUIS) TABLET PO SCH ×2 (09:05→20:48)
[2021-11-23] MEDS: polyethylene glycoL POWDER 17 GM (MIRALAX) PACK PO SCH ×2 (09:05→20:49)
[2021-11-23] MEDS: AMIODARONE 200 MG (CORDARONE) TAB PO SCH (09:05)
[2021-11-23] MEDS: SENNA W/DOCUSATE (SENOKOT S) TABLET PO SCH ×2 (09:05→20:49)
[2021-11-23] MEDS: dilTIAZem120 MG (CARDIZEM CD) CAP PO SCH (09:06)
--- NOTE | 2021-11-23 12:40 | Cardiology Progress Note ---
Progress Note-Cardiology Events since last exam Date Seen by Provider: Nov 23, 2021 Time Seen by Provider: 12:35 Events since last exam I am following him due to atrial fibrillation and heart failure. Despite re ceiving 1 blood transfusion on 11/22, his hemoglobin level is still 6 and he is receiving another blood transfusion now. He complains of pain all over his body. Does also have some chest discomfort but he thinks this is pain radiating from his back. He denies dyspnea at rest. He denies palpitations or syncope. He has persistent, mild ankle edema. Certain portions of this document may have been dictated utilizing voice recognition technology. Inherent to this technology, typographical and grammatical errors may exist. As much as I am diligent to identify and correct these mistakes, some errors may remain in the document. Vitals Last set of Vitals Signs Vital Signs 11/21/21 11/23/21 10:58 11:42 Temp 36.7 Pulse 61 Resp 20 B/P (MAP) 109/59 (76) Pulse Ox 98 O2 Delivery Nasal Cannula O2 Flow Rate 2.00 FiO2 28 Labs Labs Laboratory Tests 11/23/21 05:07 Exam Vital Signs Vital Signs Date Time Temp Pulse Resp B/P (MAP) Pulse Ox O2 Delivery O2 Flow Rate FiO2 11/23/21 11:42 36.7 61 20 109/59 (76) 98 Nasal Cannula 2.00 11/21/21 10:58 28 Physical Exam General: Alert. No acute distress. Eye: No xanthelasma. HENT: Normocephalic. Neck: Jugular venous pressure does not appear elevated. Respiratory: Lungs are clear to auscultation. Respirations are non-labored. Breath sounds are equal. Symmetrical chest wall expansion. Cardiovascular: Normal rate. Regular rhythm. 2/6 systolic ejection murmur. No gallop. 1+ bilateral pretibial edema. Gastrointestinal: Soft. Normal bowel sounds. Skin: Warm. Dry. Neurologic: Alert and oriented to person, place, time. Cranial nerves 3-11 grossly intact. Psychiatric: Cooperative. Appropriate mood & affect. Labs Laboratory Tests Test 11/23/21 05:07 Range/Units Hemoglobin 6.6 *L 13.3-17.7 g/dL Hematocrit 21 L 40-54 % Sodium Level 137 135-145 MMOL/L Potassium Level 3.7 3.6-5.0 MMOL/L Chloride Level 104 98-107 MMOL/L Carbon Dioxide Level 24 21-32 MMOL/L Anion Gap 9 5-14 MMOL/L Blood Urea Nitrogen 39 H 7-18 MG/DL Creatinine 1.16 0.60-1.30 MG/DL Estimat Glomerular Filtration Rate 62 BUN/Creatinine Ratio 34 Glucose Level 85 70-105 MG/DL Calcium Level 7.9 L 8.5-10.1 MG/DL Diagnosis/Problems Diagnosis/Problems (1) Chronic heart failure with preserved ejection fraction (HFpEF) Assessment & Plan: He seems to be clinically compensated at this point in time. He is getting some intravenous fluids intermittently and now receiving a second blood transfusion. I will stop the intravenous fluid. It appears he has received 12 L of normal saline since admission. I would be cautious with intravenous fluids or he may develop volume overload. I suspect his chronic shortness of breath is mainly due to chronic obstructive pulmonary disease. I will obtain a chest x-ray tomorrow. (2) Paroxysmal atrial fibrillation Status: Chronic Assessment & Plan: He appears to be remaining in sinus rhythm. He is on amiodarone for rhythm management, diltiazem for rate control and apixaban for stroke prophylaxis. He had been taking 200 mg of amiodarone twice daily since August 2019. This will increase the risk of toxic side effects from amiodarone. I have taken the liberty of decreasing this to 200 mg daily to help reduce the risk of potential toxicities from long-term use of amiodarone. One might consider decreasing this further as an outpatient. 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 (3) Coronary artery disease without angina pectoris Assessment & Plan: He has not been having any angina. He is not taking aspirin because he is on apixaban for the atrial fibrillation. His LDL level is actually quite good on no cholesterol medication. (4) Primary hypertension Assessment & Plan: Blood pressure had been elevated earlier during this admission but has been improved over the past few days. Continue amlodipine and diltiazem. (5) COPD without exacerbation Status: Chronic Assessment & Plan: I suspect this is most likely what contributes most to his chronic shortness of breath. BUD LOBO JR, MD Nov 23, 2021 12:40
--- NOTE | 2021-11-23 17:14 | Progress Note - Hospitalist ---
Subjective HPI/CC On Admission Date Seen by Provider: Nov 23, 2021 Time Seen by Provider: 09:50 This is a 76-year-old white male resident of [facility]. He thinks that he had both an oxycodone and hydrocodone and a Xanax before going to bed last night which made him very unstable on his feet. He says he fell striking his left hip and in fact does have a displaced intertrochanteric femoral neck fracture. The patient has been maintained on Eliquis for paroxysmal atrial fibrillation and this is being held so that he is surgery can be done under spinal anesthesia. Surgery is being planned for day after tomorrow. Appreciate Ortho and cardiology consultations. At the time of my interview the patient is awake and alert and other than complaining of some left hip pain and chronic back pain he seems to be in fair spirits Subjective/Events-last exam He is feeling weak. He slept well yesterday. His pain was well controlled. He has not had any bowel movements. He has not noted any bleeding. Objective Exam Vital Signs Vital Signs Date Time Temp Pulse Resp B/P (MAP) Pulse Ox O2 Delivery O2 Flow Rate FiO2 11/23/21 16:24 37.7 65 20 133/69 (90) 96 Room Air 11/23/21 11:42 2.00 11/21/21 10:58 28 Capillary Refill : Less Than 3 Seconds General Appearance: No Apparent Distress, Chronically ill Respiratory: Lungs Clear, Normal Breath Sounds, No Respiratory Distress Cardiovascular: Regular Rate, Rhythm, No Edema Gastrointestinal: Normal Bowel Sounds, Non Tender, Soft Extremity: Normal Inspection, Non Tender, No Pedal Edema Neurologic/Psychiatric: Alert, Oriented x3, Depressed Affect Skin: Normal Color, Warm/Dry Results/Procedures Lab Laboratory Tests 11/23/21 05:07 Patient resulted labs reviewed. Imaging: Reviewed Imaging Report Assessment/Plan Assessment and Plan Assess & Plan/Chief Complaint Hip fracture s/p surgical repair 11/18 Continue pain regimen Bowel regimen Incentive spirometer PT/OT IRF denied Plan for SNF on Thursday Postoperative anemia Acute blood loss anemia No evidence of ongoing bleeding s/p 1 unit PRBC Transfuse 1 unit PRBC Monitor AFib Continue Eliquis CKD Monitor COPD CAD Chronic back pain HTN HFpEF Continue home meds DVT prophylaxis: already receiving therapeutic anticoagulation SARA on CKD, resolved Pneumonia, resolved Diagnosis/Problems Diagnosis/Problems (1) Hip fracture, left Status: Acute (2) Pneumonia Status: Resolved Resolution Date/Time: 11/21/21 @ 17:26 (3) Acute kidney injury superimposed on chronic kidney disease Status: Resolved Resolution Date/Time: 11/21/21 @ 17:26 (4) Anemia Status: Acute (5) Paroxysmal atrial fibrillation Status: Chronic (6) CKD (chronic kidney disease) Status: Chronic Qualifiers: Chronic kidney disease stage: stage 3 (moderate) Chronic kidney disease stage 3 subtype: stage 3a (GFR 45-59) Qualified Codes: N18.31 - Chronic kidney disease, stage 3a Clinical Quality Measures DVT/VTE Risk/Contraindication: Contraindications-Pharm: Other *list below* Other: surgery DEMARIO TO MD Nov 23, 2021 17:14
[2021-11-23] MEDS: ALPRAZolam 0.25 MG (XANAX) TAB PO PRN (18:47)
[2021-11-23] MEDS: MELATONIN 3 MG TABLET PO PRN (20:48)
[2021-11-23] MEDS: GABAPENTIN 300 MG (NEURONTIN) CAP PO SCH (20:49)
[2021-11-24] VITALS (7 sets, daily range): BP systolic 115–137; BP diastolic 57–74
[2021-11-24 06:21] LABS: HEMOGLOBIN 7.5 g/dL (13.3-17.7)
[2021-11-24] MEDS: LEVOTHYROXINE 25 MCG (LEVOTHROID) TAB PO SCH (06:47)
[2021-11-24] MEDS: APIXABAN 5 MG (ELIQUIS) TABLET PO SCH ×2 (09:18→20:14)
[2021-11-24] MEDS: AMIODARONE 200 MG (CORDARONE) TAB PO SCH (09:18)
[2021-11-24] MEDS: polyethylene glycoL POWDER 17 GM (MIRALAX) PACK PO SCH ×2 (09:18→20:15)
[2021-11-24] MEDS: SENNA W/DOCUSATE (SENOKOT S) TABLET PO SCH ×2 (09:18→20:15)
[2021-11-24] MEDS: amLODIPine 5 MG (NORVASC) TAB PO SCH (09:18)
[2021-11-24] MEDS: dilTIAZem120 MG (CARDIZEM CD) CAP PO SCH (09:18)
--- NOTE | 2021-11-24 09:41 | Diagnostic Imaging Report ---
Indication: Heart failure. Study compared 11/15. Findings: Cardiomegaly similar to the prior, there is increased edema and bilateral pleural effusions greater right. No pneumothorax. Impression: Progressive congestion, edema and pleural fluid, similar cardiomegaly. Dictated by: Dictated on workstation # [id number]
[2021-11-24] MEDS: ACETAMINOPHEN 325 MG TABLET PO PRN (10:30)
[2021-11-24] MEDS: GABAPENTIN 300 MG (NEURONTIN) CAP PO SCH ×2 (10:35→20:14)
[2021-11-24] MEDS ORDERED: FUROSEMIDE 40 MG/4 ML INJ (LASIX) IVP NR (13:45)
--- NOTE | 2021-11-24 15:03 | Cardiology Progress Note ---
Progress Note-Cardiology Events since last exam Date Seen by Provider: Nov 24, 2021 Time Seen by Provider: 14:45 Events since last exam I am following him for heart failure. He feels very weak today and all of his bones and joints hurt. He denies chest discomfort, dyspnea at rest, palpitations, or syncope. He has persistent, bilateral lower extremity edema. Certain portions of this document may have been dictated utilizing voice recognition technology. Inherent to this technology, typographical and gra mmatical errors may exist. As much as I am diligent to identify and correct these mistakes, some errors may remain in the document. Vitals Last set of Vitals Signs Vital Signs 11/21/21 11/24/21 11/24/21 10:58 12:11 12:44 Temp 37.1 Pulse 50 Resp 20 B/P (MAP) 129/71 (90) Pulse Ox 96 O2 Delivery Nasal Cannula O2 Flow Rate 2.00 FiO2 28 Labs Labs Laboratory Tests 11/24/21 05:12 Exam Vital Signs Vital Signs Date Time Temp Pulse Resp B/P (MAP) Pulse Ox O2 Delivery O2 Flow Rate FiO2 11/24/21 12:44 50 11/24/21 12:11 37.1 20 129/71 (90) 96 Nasal Cannula 2.00 11/21/21 10:58 28 Physical Exam General: Alert. No acute distress. Eye: No xanthelasma. HENT: Normocephalic. Neck: Jugular venous pressure does not appear elevated. Respiratory: Lungs have scattered wheezes bilaterally. Respirations are non- labored. Breath sounds are equal. Symmetrical chest wall expansion. Cardiovascular: Normal rate. Regular rhythm. 2/6 systolic ejection murmur. No gallop. 1+ bilateral pretibial edema. Gastrointestinal: Soft. Normal bowel sounds. Skin: Warm. Dry. Neurologic: Alert and oriented to person, place, time. Cranial nerves 3-11 grossly intact. Psychiatric: Cooperative. Appropriate mood & affect. Labs Laboratory Tests Test 11/24/21 05:12 Range/Units Hemoglobin 7.5 L 13.3-17.7 g/dL Hematocrit 24 L 40-54 % Diagnosis/Problems Diagnosis/Problems (1) Chronic heart failure with preserved ejection fraction (HFpEF) Assessment & Plan: His chest x-ray from today shows pulmonary vascular congestion. It appears he has received 12 L of normal saline since admission and he also received 2 blood transfusions. I suspect he now has some volume overload. I have started him on intravenous furosemide. I will obtain a follow-up chest x-ray in the morning. (2) Paroxysmal atrial fibrillation Status: Chronic Assessment & Plan: He appears to be remaining in sinus rhythm. He is on amiodarone for rhythm management, diltiazem for rate control and apixaban for stroke prophylaxis. He had been taking 200 mg of amiodarone twice daily since August 2019. This will increase the risk of toxic side effects from am iodarone. I have taken the liberty of decreasing this to 200 mg daily to help reduce the risk of potential toxicities from long-term use of amiodarone. One might consider decreasing this further as an outpatient. 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 (3) Coronary artery disease without angina pectoris Assessment & Plan: He has not been having any angina. He is not taking aspirin because he is on apixaban for the atrial fibrillation. His LDL level is at goal on no cholesterol medication. (4) Primary hypertension Assessment & Plan: Blood pressure had been elevated earlier during this admission but has been improved over the past few days. Continue amlodipine and diltiazem. (5) COPD without exacerbation Status: Chronic Assessment & Plan: I suspect this is most likely what contributes most to his chronic shortness of breath. BUD LOBO JR, MD Nov 24, 2021 15:03
[2021-11-24] MEDS: MELATONIN 3 MG TABLET PO PRN (20:15)
--- NOTE | 2021-11-24 21:53 | Progress Note - Hospitalist ---
Subjective HPI/CC On Admission Date Seen by Provider: Nov 24, 2021 Time Seen by Provider: 10:15 This is a 76-year-old white male resident of [facility]. He thinks that he had both an oxycodone and hydrocodone and a Xanax before going to bed last night which made him very unstable on his feet. He says he fell striking his left hip and in fact does have a displaced intertrochanteric femoral neck fracture. The patient has been maintained on Eliquis for paroxysmal atrial fibrillation and this is being held so that he is surgery can be done under spinal anesthesia. Surgery is being planned for day after tomorrow. Appreciate Ortho and cardiology consultations. At the time of my interview the patient is awake and alert and other than complaining of some left hip pain and chronic back pain he seems to be in fair spirits Subjective/Events-last exam He is reporting pain. He does not feel well. He denies breathing trouble. He is eating and drinking well. Objective Exam Vital Signs Vital Signs Date Time Temp Pulse Resp B/P (MAP) Pulse Ox O2 Delivery O2 Flow Rate FiO2 11/24/21 19:25 37.4 59 23 128/72 (90) 92 Nasal Cannula 2.00 11/21/21 10:58 28 Capillary Refill : Less Than 3 Seconds General Appearance: No Apparent Distress, Chronically ill Respiratory: Lungs Clear, Normal Breath Sounds, No Respiratory Distress Cardiovascular: Regular Rate, Rhythm, No Edema, No Murmur Gastrointestinal: Normal Bowel Sounds, Non Tender, Soft Extremity: Normal Inspection, Non Tender, No Pedal Edema Neurologic/Psychiatric: Alert, Oriented x3, Depressed Affect, Motor Weakness Skin: Normal Color, Warm/Dry Results/Procedures Lab Laboratory Tests 11/24/21 05:12 Patient resulted labs reviewed. Imaging: Reviewed Imaging Report Assessment/Plan Assessment and Plan Assess & Plan/Chief Complaint Hip fracture s/p surgical repair 11/18 Continue pain regimen Bowel regimen Incentive spirometer PT/OT IRF denied Plan for SNF tomorrow Postoperative anemia Acute blood loss anemia No evidence of ongoing bleeding Hemoglobin stable s/p 2 unit PRBC AFib Continue Eliquis CKD Monitor COPD CAD Chronic back pain HTN HFpEF Continue home meds DVT prophylaxis: already receiving therapeutic anticoagulation SARA on CKD, resolved Pneumonia, resolved Diagnosis/Problems Diagnosis/Problems (1) Hip fracture, left Status: Acute (2) Pneumonia Status: Resolved Resolution Date/Time: 11/21/21 @ 17:26 (3) Acute kidney injury superimposed on chronic kidney disease Status: Resolved Resolution Date/Time: 11/21/21 @ 17:26 (4) Anemia Status: Acute (5) Paroxysmal atrial fibrillation Status: Chronic (6) CKD (chronic kidney disease) Status: Chronic Qualifiers: Chronic kidney disease stage: stage 3 (moderate) Chronic kidney disease stage 3 subtype: stage 3a (GFR 45-59) Qualified Codes: N18.31 - Chronic kidney disease, stage 3a Clinical Quality Measures DVT/VTE Risk/Contraindication: Contraindications-Pharm: Other *list below* Other: surgery DEMARIO TO MD Nov 24, 2021 21:53
[2021-11-25] VITALS: BP 131/72
[2021-11-25 04:03] VITALS: BP 141/53
[2021-11-25] MEDS: LEVOTHYROXINE 25 MCG (LEVOTHROID) TAB PO SCH (06:21)
--- NOTE | 2021-11-25 06:53 | Diagnostic Imaging Report ---
EXAMINATION: Chest 1 view HISTORY: Shortness of breath. Failure. COMPARISON: 11/24/2021. FINDINGS: Stable small right pleural effusion with bibasilar opacities. Stable cardiomegaly. There is improved aeration in the right perihilar region. No evidence of pneumothorax. IMPRESSION: 1. Improved aeration in the right perihilar region likely representing improving pulmonary edema. 2. Stable small right pleural effusion with stable bibasilar opacities. 3. Stable cardiomegaly. Dictated by: Dictated on workstation # [id number]
[2021-11-25 07:30] VITALS: BP 122/58
[2021-11-25 08:24] LABS: HEMOGLOBIN 7.4 g/dL (13.3-17.7)
--- NOTE | 2021-11-25 08:59 | Occupational Ther Daily Note ---
OT Current Status-Daily Note Subjective Pt asleep when OT entered. Pt woke up at call of name. Pt stated he is experiencing 8/10 pain. Nrsing notified. Pt agreed to therapy. Mental Status/Objective Patient Orientation: Person, Place, Time, Situation Attachments: Estrella Catheter, Oxygen, Telemetry ADL-Treatment Pt agreed to complete oral care at this time. Pt requested assist from therapist to cleanse dentures. Pt required max A to put on dentures. When asked if pt would like to brush teeth now, he stated 'that's not how he does it". Pt agreed to wash face with warm washcloth. After supplies gathered, pt required Max A to cleanse face. Pt reported he is unable to lift BUE. Noticed increase swelling in BUE from forearm to digits. Nurse notified and stated it started a couple days ago. After session, pt laying in bed. Call light in reach and all needs met. Therapy Code Descriptions/Definitions Functional [place] Measure: 0=Not Assessed/NA 4=Minimal Assistance 1=Total Assistance 5=Supervision or Setup 2=Maximal Assistance 6=Modified [place] 3=Moderate Assistance 7=Complete IndependenceSCALE: Activities may be completed with or without assistive devices. 3-Iyxqfmnezc-mqnlbdf completes the activity by him/herself with no assistance from a helper. 5-Set-up or Clean-up Assistance-helper sets up or cleans up; patient completes activity. [place] assists only prior to or following the activity. 4-Supervision or Touching Assistance-helper provides verbal cues and/or touching/steadying and/or contact guard assistance as patient completes activity. Assistance may be provided throughout the activity or intermittently. 3-Partial/Moderate Assistance-helper does LESS THAN HALF the effort. [place] lifts, holds or supports trunk or limbs, but provides less than half the effort. 2-Substantial/Maximal Assistance-helper does MORE THAN HALF the effort. [place] lifts or holds trunk or limbs and provides more than half the effort. 2-Gznvwolxj-vdnpbp does ALL the effort. Patient does none of the effort to complete the activity. Or, the assistance of 2 or more helpers is required for the patient to complete the activity. If activity was not attempted, code reason: 7-Patient Refused. 9-Not Applicable-not attempted and the patient did not perform the activity before the current illness, exacerbation or injury. 10-Not Attempted due to Environmental Limitations-(lack of equipment, weather restraints, etc.). 88-Not Attempted due to Medical Conditions or Safety Concerns. Education OT Patient Education: Correct positioning, Modified ADL techniques, Purpose of tx/functional activities Teaching Recipient: Patient Teaching Methods: Demonstration, Discussion Response to Teaching: Verbalize Understanding, Return Demonstration OT Assignment Officer Goals Assignment Officer Goals Time Frame: Dec 13, 2021 Eating (QC): 5 Oral Hygiene (QC): 5 Toileting Hygiene (QC): 3 Shower/Bathe Self (QC): 3 Upper Body Dressing (QC): 4 Lower Body Dressing (QC): 2 On/Off Footwear (QC): 3 Additional Goals: 1-Demonstrate ADL Tasks, 2-Verbalize Understanding, 3- ImproveStrength/Vikas 1=Demonstrate adherence to instructed precautions during ADL tasks. 2=Patient will verbalize/demonstrate understanding of assistive devices/modifications for ADL. 3=Patient will improve strength/tolerance for activity to enable patient to perform ADL's. OT Education/Plan Problem List/Assessment Assessment: Decreased Activ Tolerance, Decreased UE Strength, Impaired I ADL's, Impaired Self-Care Skills, Restricted Funct UE ROM Discharge Recommendations Plan/Recommendations: Continue POC Treatment Plan/Plan of Care Patient would benefit from OT for education, treatment and training to promote independence in ADL's, mobility, safety and/or upper extremity function for ADL's. Plan of Care: ADL Retraining, Functional Mobility, UE Funct Exercise/Act Treatment Duration: Dec 13, 2021 Frequency: 3 times per week (3-5 times per week) Rehab Potential: Fair Time/GCodes Start Time: 08:22 Stop Time: 08:36 Total Time Billed (hr/min): 14 Billed Treatment Time 1 visit- ADL 1 (14 mins) JUANY REYES Nov 25, 2021 08:59
[2021-11-25] MEDS ORDERED: FUROSEMIDE 40 MG/4 ML INJ (LASIX) IVP SCH ×2 (09:00→21:00)
[2021-11-25] MEDS: AMIODARONE 200 MG (CORDARONE) TAB PO SCH (09:18)
[2021-11-25] MEDS: amLODIPine 5 MG (NORVASC) TAB PO SCH (09:18)
[2021-11-25] MEDS: SENNA W/DOCUSATE (SENOKOT S) TABLET PO SCH ×2 (09:18→20:22)
[2021-11-25] MEDS: dilTIAZem120 MG (CARDIZEM CD) CAP PO SCH (09:19)
[2021-11-25] MEDS: APIXABAN 5 MG (ELIQUIS) TABLET PO SCH ×2 (09:21→20:22)
[2021-11-25] MEDS: GABAPENTIN 300 MG (NEURONTIN) CAP PO SCH ×2 (09:21→13:41)
[2021-11-25] MEDS: polyethylene glycoL POWDER 17 GM (MIRALAX) PACK PO SCH ×2 (09:35→19:38)
--- NOTE | 2021-11-25 09:58 | Physical Therapy Daily Note ---
PT Daily Note-Current Subjective Patient reports frustration with the way he is feeling. Patient declined OOB activity due to pain. Pain Numeric Pain Scale: 10-Worst Possible Pain Location: Soft Tissue Location Body Site: Generalized Pain Description: Acute Comment: total body pain all joints of all extremities Appearance 3+ edema bilateral UE's, LE's and genital region with noted redness of joints in hands Mental Status Patient Orientation: Normal For Age Attachments: Oxygen, Estrella Catheter Transfers SCALE: Activities may be completed with or without assistive devices. 4-Uiayorxlcb-fuasiip completes the activity by him/herself with no assistance from a helper. 5-Set-up or Clean-up Assistance-helper sets up or cleans up; patient completes activity. [place] assists only prior to or following the activity. 4-Supervision or Touching Assistance-helper provides verbal cues and/or touching/steadying and/or contact guard assistance as patient completes activity. Assistance may be provided throughout the activity or intermittently. 3-Partial/Moderate Assistance-helper does LESS THAN HALF the effort. [place] lifts, holds or supports trunk or limbs, but provides less than half the effort. 2-Substantial/Maximal Assistance-helper does MORE THAN HALF the effort. [place] lifts or holds trunk or limbs and provides more than half the effort. 1-Wkbvslldy-tzasai does ALL the effort. Patient does none of the effort to complete the activity. Or, the assistance of 2 or more helpers is required for the patient to complete the activity. If activity was not attempted, code reason: 7-Patient Refused. 9-Not Applicable-not attempted and the patient did not perform the activity before the current illness, exacerbation or injury. 10-Not Attempted due to Environmental Limitations-(lack of equipment, weather restraints, etc.). 88-Not Attempted due to Medical Conditions or Safety Concerns. Roll Left & Right (QC): 1 (x 2) repositioned to sidelying left with pillow placement between LE's and behind back and LE's Weight Bearing Left Lower Extremity: Left Weight Bearing/Tolerated Assessment Attempted to perform PROM bilateral LE and UE, however, patient unable to tolera te due to pain and edema. RN notified of change in patient status with PT from last Thursday to today with increase in edema and inability to tolerate any mobility. PT Short Term Goals Short Term Goals Time Frame: Nov 29, 2021 Roll Left & Right: 3 Sit to lyin Lying to sitting on side of be: 3 Sit to stand: 3 Chair/xka-wu-ggscf transfer: 3 Toilet transfer: 3 Walk 10 feet: 2 Walk 50 feet with two turns: 2 PT [facility] Goals Cut Out Marker Goals PT [facility] Goals Time Frame: Dec 27, 2021 Roll Left & Right (QC): 4 Sit to Lying (QC): 4 Lying-Sitting on Side/Bed(QC): 4 Sit to Stand (QC): 4 Chair/Wrr-yq-Rsonc Xfer(QC): 4 Toilet Transfer (QC): 4 Does the Patient Walk: Yes Walk 10 feet (QC): 4 Walk 50ft with 2 Turns (QC): 4 Walk 150 ft (QC): 3 PT Plan Treatment/Plan Treatment Plan: Continue Plan of Care Treatment Plan: Bed Mobility, Education, Functional Activity Vikas, Functional Strength, Group Therapy, Gait, Safety, Therapeutic Exercise, Transfers Treatment Duration: Dec 27, 2021 Frequency: 11 times per week Estimated Hrs Per Day: .25 hour per day Patient and/or Family Agrees t: Yes Time/GCodes Time In: 850 Time Out: 904 Total Billed Treatment Time: 14 Total Billed Treatment 1 visit FA 14 min STERLING LANDAVERDE PT Nov 25, 2021 09:58
[2021-11-25] MEDS ORDERED: FUROSEMIDE 40 MG/4 ML INJ (LASIX) IVP ONE (10:30)
[2021-11-25 11:13] VITALS: BP 127/59
--- NOTE | 2021-11-25 11:48 | Progress Note - Ortho ---
Progress Note Subjective Date of Exam 11/25/21 Chief Complaint Ortho POD #7 L Hip Bipolar HPI/Events since last exam not doing well, difficulty with whole body pain, not participating in therapy Review of Systems - Allergies: Coded Allergies: Sulfa (Sulfonamide Antibiotics) (Verified Allergy, Unknown, 10/04/19) Home Meds Reported Medications Oxycodone Myristate (Xtampza ER) 18 Mg Cap.spr.12, 18 MG PO Q12H, CAP 11/18/21 Tiotropium [place] (Spiriva Respimat 2.5MCG/ACTUATION) 4 Gm Mist.inhal, 2 PUFF INH DAILY, EA 11/18/21 Sennosides (Senna Lax) 8.6 Mg Tablet, 8.6 MG PO DAILY PRN for CONSTIPATION-5TH LINE, TAB 11/18/21 Multivitamin (Multivitamin) 1 Each Tablet, 1 EACH PO DAILY, TAB 11/18/21 Metolazone (Metolazone) 5 Mg Tablet, 5 MG PO MO,WE,FR, TAB 11/18/21 Melatonin (Melatonin) 3 Mg Tablet, 3 MG PO HS, TAB 11/18/21 Levothyroxine Sodium (Levothyroxine Sodium) 25 Mcg Tablet, 25 MCG PO DAILY, TAB 11/18/21 Hydrocodone/Acetaminophen (Hydrocodone-Acetamin 5-325 mg) 1 Each Tablet, 1-2 EA PO Q6H PRN for PAIN-MODERATE (5-7), TAB 11/18/21 Polyethylene Glycol 3350 (Miralax) 17 Gm Powd.pack, 17 GM PO DAILY, EACH 11/18/21 Gabapentin (Neurontin) 300 Mg Capsule, 300 MG PO HS, CAP 11/18/21 Furosemide (Furosemide) 40 Mg Tablet, 40 MG PO 1200, TAB 11/18/21 Docusate Sodium (Docusate Sodium) 100 Mg Capsule, 100 MG PO BID, CAP 11/18/21 ALPRAZolam (ALPRAZolam) 0.25 Mg Tablet, 0.25 MG PO DAILY, TAB 11/18/21 ALPRAZolam (ALPRAZolam) 0.25 Mg Tablet, 0.25 MG PO Q8H PRN for ANXIETY, TAB 11/18/21 Potassium Chloride (Klor-Con 10) 10 Meq Tablet.er, 10 MEQ PO DAILY, TAB 04/09/20 Fluticasone Propion/Salmeterol (Wixela 250-50 Inhub) 1 Each Blst.w.dev, 1 PUFF IN BID, EA 04/09/20 Furosemide (Lasix) 80 Mg Tablet, 80 MG PO DAILY, TAB 04/09/20 Albuterol Sulfate (Albuterol Sulfate) 2.5 Mg/0.5 Ml Vial.neb, 2.5 MG NEB Q6H PRN for SHORTNESS OF BREATH, EA 10/04/19 Apixaban (Eliquis) 5 Mg Tablet, 5 MG PO BID, TAB 10/04/19 Diltiazem HCl (Diltiazem 24Hr ER) 120 Mg Cap.er.24h, 120 MG PO DAILY, CAP 10/04/19 Amiodarone HCl (Amiodarone HCl) 200 Mg Tablet, 200 MG PO BID, TAB 10/04/19 Albuterol Sulfate (PROAIR HFA) 8.5 Gm Hfa.aer.ad, 2 PUFF IH Q4H PRN for SHORTNESS OF BREATH, EA 07/09/16 Enalapril Maleate (Enalapril Maleate) 20 Mg Tablet, 20 MG PO DAILY, TAB 07/09/16 Discontinued Reported Medications Bisacodyl (Dulcolax) 5 Mg Tablet.dr, 5 MG PO DAILY PRN for CONSTIPATION-4TH LINE, TAB 04/09/20 Acetaminophen (8Hr Arthritis Pain) 650 Mg Tablet.er, 650-1300 MG PO Q8H PRN for PAIN-MILD (1-4), TAB 04/09/20 Amlodipine Besylate (Amlodipine Besylate) 5 Mg Tablet, 5 MG PO DAILY, TAB 04/09/20 Buspirone HCl (Buspirone HCl) 5 Mg Tablet, 5 MG PO TID PRN for ANXIETY, TAB 04/09/20 Metoprolol Tartrate (Metoprolol Tartrate) 100 Mg Tablet, 100 MG PO BID, TAB 08/15/19 Discontinued Scripts Prednisone (Prednisone) 20 Mg Tab, 40 MG PO DAILY, #8 TAB 0 Refills Prov:EMILIANA FLOREZ MD 05/10/20 Cefdinir (Cefdinir) 300 Mg Capsule, 300 MG PO BID, #6 CAP Prov:PATRICIA REID MD 04/19/20 Metolazone (Metolazone) 5 Mg Tablet, 5 MG PO DAILY, #30 TAB Prov:PATRICIA REID MD 04/19/20 Objective Exam L Hip: Dressing C/D/I, +DF of ankle, calf soft/NT Vital Signs Vital Signs Date Time Temp Pulse Resp B/P (MAP) Pulse Ox O2 Delivery O2 Flow Rate FiO2 11/25/21 11:13 37.9 59 20 127/59 (81) 92 Nasal Cannula 2.00 11/25/21 07:43 90 Nasal Cannula 2.00 11/25/21 07:42 Nasal Cannula 2.00 11/25/21 07:30 37.0 60 20 122/58 (79) 93 Nasal Cannula 2.00 11/25/21 07:00 56 11/25/21 04:03 37.6 58 21 141/53 (82) 93 Nasal Cannula 2.00 11/25/21 01:00 59 11/25/21 00:00 36.8 58 17 131/72 (91) 95 Nasal Cannula 2.00 11/24/21 20:10 Nasal Cannula 2.00 11/24/21 19:25 37.4 59 23 128/72 (90) 92 Nasal Cannula 2.00 11/24/21 19:00 59 11/24/21 16:22 37.2 59 20 130/69 (89) 94 Nasal Cannula 2.00 11/24/21 12:44 50 11/24/21 12:11 37.1 51 20 129/71 (90) 96 Nasal Cannula 2.00 I & O 11/25/21 07:00 Intake Total 1242 ml Output Total 1150 ml Balance 92 ml Lab Results Laboratory Tests 11/25/21 08:04: Hemoglobin 7.4L, Hematocrit 24L Microbiology 11/16/21 MRSA Screen - Final, Complete MRSA not isolated 11/15/21 Blood Culture - Final, Complete No growth Assessment and Plan Assessment L FN Fx s/p Prosthetic Replacement Problem List L FN Fx s/p Prosthetic Replacement Plan Therapy efforts not working Will most likely need detention placement Final Diagonsis L FN Fx s/p Prosthetic Replacement Level of the visit: Level 3 (post op global) Clinical Quality Measures DVT/VTE Risk/Contraindication: Contraindications-Pharm: Other *list below* Other: surgery GARCIA QUESADA MD Nov 25, 2021 11:48
--- NOTE | 2021-11-25 14:28 | Physical Therapy Daily Note ---
PT Daily Note-Current Subjective Patient declined OOB activity. Friend present. Patient reports incontinent BM. Pain Numeric Pain Scale: 10-Worst Possible Pain Location: Soft Tissue Location Body Site: Generalized Appearance 3+ edema total body Mental Status Patient Orientation: Normal For Age Attachments: Oxygen, Estrella Catheter Transfers SCALE: Activities may be completed with or without assistive devices. 6-Rgzcderoqd-senhtvn completes the activity by him/herself with no assistance from a helper. 5-Set-up or Clean-up Assistance-helper sets up or cleans up; patient completes activity. [place] assists only prior to or following the activity. 4-Supervision or Touching Assistance-helper provides verbal cues and/or touching/steadying and/or contact guard assistance as patient completes activity. Assistance may be provided throughout the activity or intermittently. 3-Partial/Moderate Assistance-helper does LESS THAN HALF the effort. [place] lifts, holds or supports trunk or limbs, but provides less than half the effort. 2-Substantial/Maximal Assistance-helper does MORE THAN HALF the effort. [place] lifts or holds trunk or limbs and provides more than half the effort. 2-Gievwriaf-yuxqrj does ALL the effort. Patient does none of the effort to complete the activity. Or, the assistance of 2 or more helpers is required for the patient to complete the activity. If activity was not attempted, code reason: 7-Patient Refused. 9-Not Applicable-not attempted and the patient did not perform the activity before the current illness, exacerbation or injury. 10-Not Attempted due to Environmental Limitations-(lack of equipment, weather restraints, etc.). 88-Not Attempted due to Medical Conditions or Safety Concerns. Roll Left & Right (QC): 1 (x 2) Weight Bearing Left Lower Extremity: Left Weight Bearing/Tolerated Exercises Supine Ex: Ankle pumps, Heel Slides Supine Reps: 15 (AAROM) Assessment Patient incontinent BM requiring dependent assist to cleanse and change bedding. Patient tolerates activity and is repositioned in bed. Increase activity as tolerated or allow by patient. PT Short Term Goals Short Term Goals Time Frame: Nov 29, 2021 Roll Left & Right: 3 Sit to lyin Lying to sitting on side of be: 3 Sit to stand: 3 Chair/kuz-yd-qdqzw transfer: 3 Toilet transfer: 3 Walk 10 feet: 2 Walk 50 feet with two turns: 2 PT Correction Goals Insulation Cupola Charger Goals PT Correction Goals Time Frame: Dec 27, 2021 Roll Left & Right (QC): 4 Sit to Lying (QC): 4 Lying-Sitting on Side/Bed(QC): 4 Sit to Stand (QC): 4 Chair/Fma-xk-Xwsbb Xfer(QC): 4 Toilet Transfer (QC): 4 Does the Patient Walk: Yes Walk 10 feet (QC): 4 Walk 50ft with 2 Turns (QC): 4 Walk 150 ft (QC): 3 PT Plan Treatment/Plan Treatment Plan: Continue Plan of Care Treatment Plan: Bed Mobility, Education, Functional Activity Vikas, Functional Strength, Group Therapy, Gait, Safety, Therapeutic Exercise, Transfers Treatment Duration: Dec 27, 2021 Frequency: 11 times per week Estimated Hrs Per Day: .25 hour per day Patient and/or Family Agrees t: Yes Time/GCodes Time In: 1333 Time Out: 1356 Total Billed Treatment Time: 23 Total Billed Treatment 1 visit FA x 2 23 min STERLING LANDAVERDE PT Nov 25, 2021 14:28
[2021-11-25 16:00] VITALS: BP 113/54
[2021-11-25] MEDS: ALPRAZolam 0.25 MG (XANAX) TAB PO PRN (17:59)
--- NOTE | 2021-11-25 18:57 | Progress Note - Hospitalist ---
Subjective HPI/CC On Admission Date Seen by Provider: Nov 25, 2021 Time Seen by Provider: 10:25 This is a 76-year-old white male resident of [facility]. He thinks that he had both an oxycodone and hydrocodone and a Xanax before going to bed last night which made him very unstable on his feet. He says he fell striking his left hip and in fact does have a displaced intertrochanteric femoral neck fracture. The patient has been maintained on Eliquis for paroxysmal atrial fibrillation and this is being held so that he is surgery can be done under spinal anesthesia. Surgery is being planned for day after tomorrow. Appreciate Ortho and cardiology consultations. At the time of my interview the patient is awake and alert and other than complaining of some left hip pain and chronic back pain he seems to be in fair spirits Subjective/Events-last exam He reports having some hallucinations overnight. He thought someone was trying to come into his room through a vent. He does not complain of pain. He is not short of breath. Objective Exam Vital Signs Vital Signs Date Time Temp Pulse Resp B/P (MAP) Pulse Ox O2 Delivery O2 Flow Rate FiO2 11/25/21 16:00 37.6 57 20 113/54 (73) 92 Nasal Cannula 2.00 11/21/21 10:58 28 Capillary Refill : Less Than 3 Seconds General Appearance: No Apparent Distress, Chronically ill, Obese Respiratory: Lungs Clear, Normal Breath Sounds, No Respiratory Distress Cardiovascular: Regular Rate, Rhythm, No Murmur Gastrointestinal: Normal Bowel Sounds, Non Tender, Soft Extremity: Normal Inspection, Non Tender, Pedal Edema, Swelling (anasarca) Neurologic/Psychiatric: Alert, Depressed Affect, Motor Weakness Skin: Normal Color, Warm/Dry Results/Procedures Lab Laboratory Tests 11/25/21 08:04 Patient resulted labs reviewed. Imaging: Reviewed Imaging Report Assessment/Plan Assessment and Plan Assess & Plan/Chief Complaint Hip fracture s/p surgical repair 11/18 Continue pain regimen Bowel regimen Incentive spirometer PT/OT IRF denied Plan for SNF on discharge Anasarca Fluid overload Likely related to transfusions Increase Lasix Stop amlodipine Delirium Reorient as needed Decrease oxycodone Decrease gabapentin Postoperative anemia Acute blood loss anemia No evidence of ongoing bleeding Hemoglobin stable s/p 2 unit PRBC AFib Continue Eliquis CKD Monitor COPD CAD Chronic back pain HTN HFpEF Continue home meds DVT prophylaxis: already receiving therapeutic anticoagulation SARA on CKD, resolved Pneumonia, resolved Diagnosis/Problems Diagnosis/Problems (1) Hip fracture, left Status: Acute (2) Pneumonia Status: Resolved Resolution Date/Time: 11/21/21 @ 17:26 (3) Acute kidney injury superimposed on chronic kidney disease Status: Resolved Resolution Date/Time: 11/21/21 @ 17:26 (4) Anemia Status: Acute (5) Paroxysmal atrial fibrillation Status: Chronic (6) CKD (chronic kidney disease) Status: Chronic Qualifiers: Chronic kidney disease stage: stage 3 (moderate) Chronic kidney disease s tage 3 subtype: stage 3a (GFR 45-59) Qualified Codes: N18.31 - Chronic kidney disease, stage 3a (7) Anasarca Status: Acute (8) Fluid overload Status: Acute Qualifiers: Hypervolemia type: transfusion-associated Qualified Codes: E87.71 - Transfusion associated circulatory overload (9) Delirium due to multiple etiologies Status: Acute Clinical Quality Measures DVT/VTE Risk/Contraindication: Contraindications-Pharm: Other *list below* Other: surgery DEMARIO TO MD Nov 25, 2021 18:57
[2021-11-25 20:00] VITALS: BP 110/57
[2021-11-25] MEDS: FUROSEMIDE 40 MG/4 ML INJ (LASIX) IVP SCH (20:22)
[2021-11-25] MEDS: GABAPENTIN 100 MG (NEURONTIN) CAP PO SCH (20:22)
[2021-11-26 00:01] VITALS: BP 105/66
[2021-11-26 04:19] VITALS: BP 105/63
[2021-11-26] MEDS: FUROSEMIDE 40 MG/4 ML INJ (LASIX) IVP SCH ×2 (05:32→16:56)
[2021-11-26] MEDS: LEVOTHYROXINE 25 MCG (LEVOTHROID) TAB PO SCH (05:32)
[2021-11-26 06:26] LABS: BASOPHILS % (AUTO) 0 % (0-10); EOSINOPHILS # (AUTO) 0.1 10^3/uL (0.0-0.3); EOSINOPHILS % (AUTO) 1 % (0-10); HEMATOCRIT 25 % (40-54); HEMOGLOBIN 7.7 g/dL (13.3-17.7); LYMPHOCYTES % (AUTO) 7 % (12-44); MEAN CORPUSCULAR HEMOGLOBIN 27 pg (25-34); MEAN CORPUSCULAR HGB CONC 31 g/dL (32-36); MEAN CORPUSCULAR VOLUME 88 fL (80-99); MEAN PLATELET VOLUME 10.5 fL (9.0-12.2); MONOCYTES # (AUTO) 1.1 10^3/uL (0.0-1.0); MONOCYTES % (AUTO) 7 % (0-12); NEUTROPHILS # (AUTO) 12.3 10^3/uL (1.8-7.8); NEUTROPHILS % (AUTO) 84 % (42-75); PLATELET COUNT 380 10^3/uL (130-400); WHITE BLOOD COUNT 14.5 10^3/uL (4.3-11.0)
[2021-11-26 06:49] LABS: POTASSIUM 3.6 MMOL/L (3.6-5.0)
[2021-11-26 06:50] LABS: CALCIUM 8.2 MG/DL (8.5-10.1)
[2021-11-26 06:55] LABS: CREATININE SERUM 1.37 MG/DL (0.60-1.30)
[2021-11-26 07:14] LABS: ANISOCYTOSIS SLIGHT; HYPOCHROMASIA SLIGHT; LYMPHOCYTES % (MANUAL) 4 %; MONOCYTES % (MANUAL) 8 %; NEUTROPHILS % (MANUAL) 88 %
[2021-11-26 08:10] VITALS: BP 118/59
[2021-11-26] MEDS: GABAPENTIN 100 MG (NEURONTIN) CAP PO SCH ×3 (08:55→20:16)
[2021-11-26] MEDS: SENNA W/DOCUSATE (SENOKOT S) TABLET PO SCH ×2 (08:55→20:16)
[2021-11-26] MEDS: AMIODARONE 200 MG (CORDARONE) TAB PO SCH (08:55)
[2021-11-26] MEDS: polyethylene glycoL POWDER 17 GM (MIRALAX) PACK PO SCH ×2 (08:55→20:17)
[2021-11-26] MEDS: APIXABAN 5 MG (ELIQUIS) TABLET PO SCH ×2 (08:55→20:16)
[2021-11-26] MEDS: dilTIAZem120 MG (CARDIZEM CD) CAP PO SCH (08:55)
--- NOTE | 2021-11-26 09:51 | Physical Therapy Daily Note ---
PT Daily Note-Current Subjective Patient agrees to PT. Pain Numeric Pain Scale: 10-Worst Possible Pain Location: Left Location Body Site: Hip Appearance decrease in edema total body/continues to have red joints bilateral hands Mental Status Patient Orientation: Normal For Age Attachments: Oxygen, Estrella Catheter Transfers SCALE: Activities may be completed with or without assistive devices. 9-Svgjhojkom-ohmrosa completes the activity by him/herself with no assistance from a helper. 5-Set-up or Clean-up Assistance-helper sets up or cleans up; patient completes activity. [place] assists only prior to or following the activity. 4-Supervision or Touching Assistance-helper provides verbal cues and/or touching/steadying and/or contact guard assistance as patient completes activity. Assistance may be provided throughout the activity or intermittently. 3-Partial/Moderate Assistance-helper does LESS THAN HALF the effort. [place] lifts, holds or supports trunk or limbs, but provides less than half the effort. 2-Substantial/Maximal Assistance-helper does MORE THAN HALF the effort. [place] lifts or holds trunk or limbs and provides more than half the effort. 9-Lavchawys-lmdxcd does ALL the effort. Patient does none of the effort to complete the activity. Or, the assistance of 2 or more helpers is required for the patient to complete the activity. If activity was not attempted, code reason: 7-Patient Refused. 9-Not Applicable-not attempted and the patient did not perform the activity before the current illness, exacerbation or injury. 10-Not Attempted due to Environmental Limitations-(lack of equipment, weather restraints, etc.). 88-Not Attempted due to Medical Conditions or Safety Concerns. Lying to Sitting/Side of Bed(Q: 1 (x 2) Sit to Stand (QC): 1 (sit to stand lift) Chair/Pcv-qf-Nuerc Xfer(QC): 1 (sit to stand lift) Weight Bearing Left Lower Extremity: Left Weight Bearing/Tolerated Exercises Supine Ex: Ankle pumps, Heel Slides Supine Reps: 15 (AAROM) Seated Therapy Exercises: Long arc quads Seated Reps: 15 (AAROM) Assessment Patient resists mobility due to total body pain. Patient educated on importance of increasing active movement to improve LOF. Patient voices understanding, however, continues to sit and lay without attempting to move. PT Short Term Goals Short Term Goals Time Frame: Nov 29, 2021 Roll Left & Right: 3 Sit to lyin Lying to sitting on side of be: 3 Sit to stand: 3 Chair/qqc-lu-vmwif transfer: 3 Toilet transfer: 3 Walk 10 feet: 2 Walk 50 feet with two turns: 2 PT Shelter Goals Shelter Goals PT Store Product Demonstrator Goals Time Frame: Dec 27, 2021 Roll Left & Right (QC): 4 Sit to Lying (QC): 4 Lying-Sitting on Side/Bed(QC): 4 Sit to Stand (QC): 4 Chair/Dbj-qz-Xouub Xfer(QC): 4 Toilet Transfer (QC): 4 Does the Patient Walk: Yes Walk 10 feet (QC): 4 Walk 50ft with 2 Turns (QC): 4 Walk 150 ft (QC): 3 PT Plan Treatment/Plan Treatment Plan: Continue Plan of Care Treatment Plan: Bed Mobility, Education, Functional Activity Vikas, Functional Strength, Group Therapy, Gait, Safety, Therapeutic Exercise, Transfers Treatment Duration: Dec 27, 2021 Frequency: 11 times per week Estimated Hrs Per Day: .25 hour per day Patient and/or Family Agrees t: Yes Time/GCodes Time In: 905 Time Out: 928 Total Billed Treatment Time: 23 Total Billed Treatment 1 visit FA 13 min EX 10min STERLING LANDAVERDE PT Nov 26, 2021 09:50
--- NOTE | 2021-11-26 10:27 | Occupational Ther Daily Note ---
OT Current Status-Daily Note Subjective Pt up in recliner, visitor at bedside. Pt agreeable to OT Tx with some encouragement. Mental Status/Objective Patient Orientation: Person, Place, Situation Attachments: Estrella Catheter, IV, Oxygen ADL-Treatment Therapy Code Descriptions/Definitions Functional [place] Measure: 0=Not Assessed/NA 4=Minimal Assistance 1=Total Assistance 5=Supervision or Setup 2=Maximal Assistance 6=Modified [place] 3=Moderate Assistance 7=Complete IndependenceSCALE: Activities may be completed with or without assistive devices. 8-Tmdzullujp-unkuxog completes the activity by him/herself with no assistance from a helper. 5-Set-up or Clean-up Assistance-helper sets up or cleans up; patient completes activity. [place] assists only prior to or following the activity. 4-Supervision or Touching Assistance-helper provides verbal cues and/or touching/steadying and/or contact guard assistance as patient completes a ctivity. Assistance may be provided throughout the activity or intermittently. 3-Partial/Moderate Assistance-helper does LESS THAN HALF the effort. [place] lifts, holds or supports trunk or limbs, but provides less than half the effort. 2-Substantial/Maximal Assistance-helper does MORE THAN HALF the effort. [place] lifts or holds trunk or limbs and provides more than half the effort. 7-Aogeatslg-obwwbq does ALL the effort. Patient does none of the effort to complete the activity. Or, the assistance of 2 or more helpers is required for the patient to complete the activity. If activity was not attempted, code reason: 7-Patient Refused. 9-Not Applicable-not attempted and the patient did not perform the activity before the current illness, exacerbation or injury. 10-Not Attempted due to Environmental Limitations-(lack of equipment, weather restraints, etc.). 88-Not Attempted due to Medical Conditions or Safety Concerns. Oral Hygiene (QC): 7 Toileting Hygiene (QC): 1 (catheter) Other Treatment Pt up in recliner, agreeable to OT Tx with some encouragement. OT tx focused on increasing BUE strength and activity tolerance. Pt completed x5 reps AAROM R shoulder flexion, x10 reps AROM R elbow flexion/extension, then x10 L supply chain program manager squeezes. Pt reports pain in LUE, noted increased swelling. OT performed gentle retrograde massage to L hand. Pt instructed to complete supply chain program manager squeezes frequently throughout the day to decrease swelling, and OT educated pt on positioning of LUE to decrease swelling, placing arm on pillow. Post tx, pt in recliner, call light in reach and all needs met. Education OT Patient Education: Correct positioning, Energy conservation, Exercise program, Modified ADL techniques, Progress toward Goal/Update tx plan, Purpose of tx/functional activities, Rehab process Teaching Recipient: Patient Teaching Methods: Discussion Response to Teaching: Verbalize Understanding OT Alf Goals Animal Care Attendant Goals Time Frame: Dec 13, 2021 Eating (QC): 5 Oral Hygiene (QC): 5 Toileting Hygiene (QC): 3 Shower/Bathe Self (QC): 3 Upper Body Dressing (QC): 4 Lower Body Dressing (QC): 2 On/Off Footwear (QC): 3 Additional Goals: 1-Demonstrate ADL Tasks, 2-Verbalize Understanding, 3- ImproveStrength/Vikas 1=Demonstrate adherence to instructed precautions during ADL tasks. 2=Patient will verbalize/demonstrate understanding of assistive devices/modifications for ADL. 3=Patient will improve strength/tolerance for activity to enable patient to perform ADL's. OT Education/Plan Problem List/Assessment Assessment: Decreased Activ Tolerance, Decreased UE Strength, Dependent Transfers, Impaired Funct Balance, Impaired I ADL's, Impaired Self-Care Skills, Restricted Funct UE ROM Discharge Recommendations Plan/Recommendations: Continue POC Treatment Plan/Plan of Care Patient would benefit from OT for education, treatment and training to promote independence in ADL's, mobility, safety and/or upper extremity function for ADL's. Plan of Care: ADL Retraining, Functional Mobility, UE Funct Exercise/Act Treatment Duration: Dec 13, 2021 Frequency: 3 times per week (3-5 times per week) Rehab Potential: Fair Time/GCodes Start Time: 09:54 Stop Time: 10:03 Total Time Billed (hr/min): 9 Billed Treatment Time 1, EX ASHANTI DUARTE OT Nov 26, 2021 10:27
[2021-11-26] MEDS: ACETAMINOPHEN 325 MG TABLET PO PRN ×3 (10:43→20:17)
[2021-11-26 11:27] VITALS: BP 113/55
--- NOTE | 2021-11-26 13:50 | Physical Therapy Daily Note ---
PT Daily Note-Current Subjective Patient agrees to bed exercises. Pain Numeric Pain Scale: 10-Worst Possible Pain Location: Right, Left, Joint (all joints upper and lower extremities) Mental Status Patient Orientation: Normal For Age Attachments: Oxygen, Estrella Catheter Transfers SCALE: Activities may be completed with or without assistive devices. 1-Rqpoektnuk-ujuofou completes the activity by him/herself with no assistance from a helper. 5-Set-up or Clean-up Assistance-helper sets up or cleans up; patient completes activity. [place] assists only prior to or following the activity. 4-Supervision or Touching Assistance-helper provides verbal cues and/or touching/steadying and/or contact guard assistance as patient completes activity. Assistance may be provided throughout the activity or intermittently. 3-Partial/Moderate Assistance-helper does LESS THAN HALF the effort. [place] lifts, holds or supports trunk or limbs, but provides less than half the effort. 2-Substantial/Maximal Assistance-helper does MORE THAN HALF the effort. [place] lifts or holds trunk or limbs and provides more than half the effort. 3-Kbnewcdir-hhxmnn does ALL the effort. Patient does none of the effort to complete the activity. Or, the assistance of 2 or more helpers is required for the patient to complete the activity. If activity was not attempted, code reason: 7-Patient Refused. 9-Not Applicable-not attempted and the patient did not perform the activity before the current illness, exacerbation or injury. 10-Not Attempted due to Environmental Limitations-(lack of equipment, weather restraints, etc.). 88-Not Attempted due to Medical Conditions or Safety Concerns. Weight Bearing Left Lower Extremity: Left Weight Bearing/Tolerated Exercises Supine Ex: Ankle pumps, Heel Slides, Straight leg raise Supine Reps: 12 (PROM bilaterally with patient resisting due to pain) Assessment Poor progress notes. Patient continues to c/o joint pain (hands, wrist, elbow, shoulder, hips knees, ankle, toes, etc.) Pain medication has been issued per RN. PT Short Term Goals Short Term Goals Time Frame: Nov 29, 2021 Roll Left & Right: 3 Sit to lyin Lying to sitting on side of be: 3 Sit to stand: 3 Chair/uit-zd-filqj transfer: 3 Toilet transfer: 3 Walk 10 feet: 2 Walk 50 feet with two turns: 2 PT Group Home Goals Security Patrol Driver Goals PT Security Patrol Driver Goals Time Frame: Dec 27, 2021 Roll Left & Right (QC): 4 Sit to Lying (QC): 4 Lying-Sitting on Side/Bed(QC): 4 Sit to Stand (QC): 4 Chair/Cmd-qu-Ajife Xfer(QC): 4 Toilet Transfer (QC): 4 Does the Patient Walk: Yes Walk 10 feet (QC): 4 Walk 50ft with 2 Turns (QC): 4 Walk 150 ft (QC): 3 PT Plan Treatment/Plan Treatment Plan: Continue Plan of Care Treatment Plan: Bed Mobility, Education, Functional Activity Vikas, Functional Strength, Group Therapy, Gait, Safety, Therapeutic Exercise, Transfers Treatment Duration: Dec 27, 2021 Frequency: 11 times per week Estimated Hrs Per Day: .25 hour per day Patient and/or Family Agrees t: Yes Time/GCodes Time In: 1315 Time Out: 1325 Total Billed Treatment Time: 10 Total Billed Treatment 1 visit EX 10 min STERLING LANDAVERDE PT Nov 26, 2021 13:50
[2021-11-26 15:27] VITALS: BP 107/64
--- NOTE | 2021-11-26 19:04 | Cardiology Progress Note ---
Progress Note-Cardiology Events since last exam Date Seen by Provider: Nov 26, 2021 Time Seen by Provider: 19:00 Events since last exam I am following him due to heart failure. He is still waiting for an inpatient rehab bed following his hip fracture. His peripheral edema persists. He denies chest discomfort, dyspnea, palpitations, or syncope. Certain portions of this document may have been dictated utilizing voice recognition technology. Inherent to this technology, typographical and grammatical errors may exist. As much as I am diligent to identify and correct these mistakes, some errors may remain in the document. Vitals Last set of Vitals Signs Vital Signs 11/21/21 11/26/21 10:58 15:27 Temp 37.2 Pulse 49 Resp 18 B/P (MAP) 107/64 (78) Pulse Ox 97 O2 Delivery Nasal Cannula O2 Flow Rate 3.00 FiO2 28 Labs Labs Laboratory Tests 11/26/21 05:51 Exam Vital Signs Vital Signs Date Time Temp Pulse Resp B/P (MAP) Pulse Ox O2 Delivery O2 Flow Rate FiO2 11/26/21 15:27 37.2 49 18 107/64 (78) 97 Nasal Cannula 3.00 11/21/21 10:58 28 Physical Exam General: Alert. No acute distress. Eye: No xanthelasma. HENT: Normocephalic. Neck: Jugular venous pressure does not appear elevated. Respiratory: Lungs have scattered wheezes bilaterally. Respirations are non- labored. Breath sounds are equal. Symmetrical chest wall expansion. Cardiovascular: Normal rate. Regular rhythm. 2/6 systolic ejection murmur. No gallop. 1+ bilateral pretibial edema. Gastrointestinal: Soft. Normal bowel sounds. Skin: Warm. Dry. Neurologic: Alert and oriented to person, place, time. Cranial nerves 3-11 grossly intact. Psychiatric: Cooperative. Appropriate mood & affect. Labs Laboratory Tests Test 11/26/21 05:51 Range/Units White Blood Count 14.5 H 4.3-11.0 10^3/uL Red Blood Count 2.83 L 4.30-5.52 10^6/uL Hemoglobin 7.7 L 13.3-17.7 g/dL Hematocrit 25 L 40-54 % Mean Corpuscular Volume 88 80-99 fL Mean Corpuscular Hemoglobin 27 25-34 pg Mean Corpuscular Hemoglobin Concent 31 L 32-36 g/dL Red Cell Distribution Width 16.5 H 10.0-14.5 % Platelet Count 380 130-400 10^3/uL Mean Platelet Volume 10.5 9.0-12.2 fL Immature Granulocyte % (Auto) 1 % Neutrophils (%) (Auto) 84 H 42-75 % Lymphocytes (%) (Auto) 7 L 12-44 % Monocytes (%) (Auto) 7 0-12 % Eosinophils (%) (Auto) 1 0-10 % Basophils (%) (Auto) 0 0-10 % Neutrophils # (Auto) 12.3 H 1.8-7.8 10^3/uL Lymphocytes # (Auto) 1.0 1.0-4.0 10^3/uL Monocytes # (Auto) 1.1 H 0.0-1.0 10^3/uL Eosinophils # (Auto) 0.1 0.0-0.3 10^3/uL Basophils # (Auto) 0.0 0.0-0.1 10^3/uL Immature Granulocyte # (Auto) 0.1 0.0-0.1 10^3/uL Neutrophils % (Manual) 88 % Lymphocytes % (Manual) 4 % Monocytes % (Manual) 8 % Hypochromasia SLIGHT Anisocytosis SLIGHT Sodium Level 139 135-145 MMOL/L Potassium Level 3.6 3.6-5.0 MMOL/L Chloride Level 100 98-107 MMOL/L Carbon Dioxide Level 28 21-32 MMOL/L Anion Gap 11 5-14 MMOL/L Blood Urea Nitrogen 51 H 7-18 MG/DL Creatinine 1.37 H 0.60-1.30 MG/DL Estimat Glomerular Filtration Rate 51 BUN/Creatinine Ratio 37 Glucose Level 94 70-105 MG/DL Calcium Level 8.2 L 8.5-10.1 MG/DL Procalcitonin 0.25 H <0.10 NG/ML Diagnosis/Problems Diagnosis/Problems (1) Chronic heart failure with preserved ejection fraction (HFpEF) Assessment & Plan: He continues on intravenous Lasix. It appears he has received 12 L of normal saline since admission and he also received 2 blood transfusions. I suspect he now has some volume overload. His creatinine level is starting to increase. We may need to change him over to oral furosemide soon. I have ordered a follow-up metabolic panel for the morning. (2) Paroxysmal atrial fibrillation Status: Chronic Assessment & Plan: He seems to be remaining in sinus rhythm. He is on amiodaro ne for rhythm management, diltiazem for rate control and apixaban for stroke prophylaxis. He had been taking 200 mg of amiodarone twice daily since August 2019. This will increase the risk of toxic side effects from amiodarone. I have taken the liberty of decreasing this to 200 mg daily to help reduce the risk of potential toxicities from long-term use of amiodarone. One might consider decreasing this further as an outpatient. 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 (3) Coronary artery disease without angina pectoris Assessment & Plan: He has not been having any angina. He is not taking aspirin because he is on apixaban for the atrial fibrillation. His LDL level is at goal on no cholesterol medication. (4) Primary hypertension Assessment & Plan: Blood pressure had been elevated earlier during this admission but he has been normotensive for the past several days. (5) COPD without exacerbation Status: Chronic Assessment & Plan: I suspect this is most likely what contributes most to his chronic shortness of breath. BUD LOBO JR, MD Nov 26, 2021 19:04
[2021-11-26 19:13] VITALS: BP 109/61
--- NOTE | 2021-11-26 20:15 | Progress Note - Hospitalist ---
Subjective HPI/CC On Admission Date Seen by Provider: Nov 26, 2021 Time Seen by Provider: 10:35 This is a 76-year-old white male resident of [facility]. He thinks that he had both an oxycodone and hydrocodone and a Xanax before going to bed last night which made him very unstable on his feet. He says he fell striking his left hip and in fact does have a displaced intertrochanteric femoral neck fracture. The patient has been maintained on Eliquis for paroxysmal atrial fibrillation and this is being held so that he is surgery can be done under spinal anesthesia. Surgery is being planned for day after tomorrow. Appreciate Ortho and cardiology consultations. At the time of my interview the patient is awake and alert and other than complaining of some left hip pain and chronic back pain he seems to be in fair spirits Subjective/Events-last exam He is sitting in his chair. He has a friend visiting. He is having some pain. Objective Exam Vital Signs Vital Signs Date Time Temp Pulse Resp B/P (MAP) Pulse Ox O2 Delivery O2 Flow Rate FiO2 11/26/21 19:13 37.3 53 20 109/61 (77) 96 Nasal Cannula 3.00 11/21/21 10:58 28 Capillary Refill : Less Than 3 Seconds General Appearance: No Apparent Distress, Chronically ill Respiratory: Lungs Clear, Normal Breath Sounds, No Respiratory Distress Cardiovascular: Regular Rate, Rhythm, No Murmur Gastrointestinal: Normal Bowel Sounds, Soft Extremity: Non Tender; No Inflammation; Swelling Neurologic/Psychiatric: Alert, Normal Mood/Affect, Motor Weakness Skin: Normal Color, Warm/Dry Results/Procedures Lab Laboratory Tests 11/26/21 05:51 Patient resulted labs reviewed. Imaging: Reviewed Imaging Report Assessment/Plan Assessment and Plan Assess & Plan/Chief Complaint Hip fracture s/p surgical repair 11/18 Pain regimen Bowel regimen Incentive spirometer PT/OT IRF denied Plan for SNF on discharge Anasarca Fluid overload Likely related to transfusions Continue Lasix Postoperative anemia Acute blood loss anemia No evidence of ongoing bleeding Hemoglobin stable s/p 2 unit PRBC AFib Continue Eliquis CKD Monitor COPD CAD Chronic back pain HTN HFpEF Continue home meds DVT prophylaxis: already receiving therapeutic anticoagulation SARA on CKD, resolved Pneumonia, resolved Delirium, resolved Diagnosis/Problems Diagnosis/Problems (1) Hip fracture, left Status: Acute (2) Pneumonia Status: Resolved Resolution Date/Time: 11/21/21 @ 17:26 (3) Acute kidney injury superimposed on chronic kidney disease Status: Resolved Resolution Date/Time: 11/21/21 @ 17:26 (4) Anemia Status: Acute (5) Paroxysmal atrial fibrillation Status: Chronic (6) CKD (chronic kidney disease) Status: Chronic Qualifiers: Chronic kidney disease stage: stage 3 (moderate) Chronic kidney disease stage 3 subtype: stage 3a (GFR 45-59) Qualified Codes: N18.31 - Chronic kidney disease, stage 3a (7) Anasarca Status: Acute (8) Fluid overload Status: Acute Qualifiers: Hypervolemia type: transfusion-associated Qualified Codes: E87.71 - Transfusion associated circulatory overload (9) Delirium due to multiple etiologies Status: Acute Clinical Quality Measures DVT/VTE Risk/Contraindication: Contraindications-Pharm: Other *list below* Other: surgery DEMARIO TO MD Nov 26, 2021 20:14
[2021-11-26] MEDS: MELATONIN 3 MG TABLET PO PRN (20:16)
[2021-11-27] VITALS: BP 117/58
[2021-11-27] MEDS: ACETAMINOPHEN 325 MG TABLET PO PRN ×2 (03:55→08:48)
[2021-11-27 04:17] VITALS: BP 120/71
[2021-11-27] MEDS: FUROSEMIDE 40 MG/4 ML INJ (LASIX) IVP SCH (06:05)
[2021-11-27] MEDS: LEVOTHYROXINE 25 MCG (LEVOTHROID) TAB PO SCH (06:05)
[2021-11-27 06:34] LABS: POTASSIUM 3.4 MMOL/L (3.6-5.0)
[2021-11-27 06:39] LABS: CREATININE SERUM 1.23 MG/DL (0.60-1.30)
[2021-11-27 07:00] VITALS: BP 132/63
[2021-11-27] MEDS: SENNA W/DOCUSATE (SENOKOT S) TABLET PO SCH (08:48)
[2021-11-27] MEDS: GABAPENTIN 100 MG (NEURONTIN) CAP PO SCH ×2 (08:48→12:55)
[2021-11-27] MEDS: APIXABAN 5 MG (ELIQUIS) TABLET PO SCH (08:48)
[2021-11-27] MEDS: AMIODARONE 200 MG (CORDARONE) TAB PO SCH (08:49)
[2021-11-27] MEDS: polyethylene glycoL POWDER 17 GM (MIRALAX) PACK PO SCH (08:49)
[2021-11-27] MEDS: dilTIAZem120 MG (CARDIZEM CD) CAP PO SCH (09:00)
[2021-11-27 11:13] VITALS: BP 115/56
--- NOTE | 2021-11-27 12:37 | Discharge Summary ---
Discharge Summary Hospital Course Hospital Course Date of Admission: Nov 15, 2021 at 14:34 Admission Diagnosis : Hip fracture Family Physician/Provider: Wilfredo Blair MD Date of Discharge: 11/27/21 Discharge Diagnosis: Hip fracture, acute blood loss anemia, pneumonia, anasarca Hospital Course: [place] is a 76 year old male with multiple medical comorbidities who was admitted with a hip fracture. He underwent surgical repair. He had postoperative acute blood loss anemia and required 2 units PRBC. He subsequently developed worsening swelling and anasarca. He was diuresed and his swelling improved. He was also treated with a course of antibiotics for pneumonia. He was debilitated and required chcf placement. He was discharged in fair condition to [facility]. Labs and Pending Lab Test: Laboratory Tests 11/27/21 06:00: Sodium Level 138, Potassium Level 3.4L, Chloride Level 98, Carbon Dioxide Level 31, Anion Gap 9, Blood Urea Nitrogen 55H, Creatinine 1.23, Estimat Glomerular Filtration Rate 58, BUN/Creatinine Ratio 45, Glucose Level 98, Calcium Level 8.0L Microbiology 11/16/21 MRSA Screen - Final, Complete MRSA not isolated 11/15/21 Blood Culture - Final, Complete No growth Home Meds Active Reported Xtampza ER (Oxycodone Myristate) 18 Mg Cap.spr.12 18 Mg PO Q12H Spiriva Respimat 2.5MCG/ACTUATION (Tiotropium [place]) 4 Gm Mist.inhal 2 Puff INH DAILY Senna Lax (Sennosides) 8.6 Mg Tablet 8.6 Mg PO DAILY PRN Multivitamin 1 Each Tablet 1 Each PO DAILY Metolazone 5 Mg Tablet 5 Mg PO MO,WE,FR Melatonin 3 Mg Tablet 3 Mg PO HS Levothyroxine Sodium 25 Mcg Tablet 25 Mcg PO DAILY Hydrocodone-Acetamin 5-325 mg (Hydrocodone/Acetaminophen) 1 Each Tablet 1-2 Ea PO Q6H PRN Miralax (Polyethylene Glycol 3350) 17 Gm Powd.pack 17 Gm PO DAILY Neurontin (Gabapentin) 300 Mg Capsule 300 Mg PO HS Furosemide 40 Mg Tablet 40 Mg PO 1200 Docusate Sodium 100 Mg Capsule 100 Mg PO BID ALPRAZolam 0.25 Mg Tablet 0.25 Mg PO DAILY ALPRAZolam 0.25 Mg Tablet 0.25 Mg PO Q8H PRN Klor-Con 10 (Potassium Chloride) 10 Meq Tablet.er 10 Meq PO DAILY Wixela 250-50 Inhub (Fluticasone Propion/Salmeterol) 1 Each Blst.w.dev 1 Puff IN BID Lasix (Furosemide) 80 Mg Tablet 80 Mg PO DAILY Albuterol Sulfate 2.5 Mg/0.5 Ml Vial.neb 2.5 Mg NEB Q6H PRN Eliquis (Apixaban) 5 Mg Tablet 5 Mg PO BID Diltiazem 24Hr ER (Diltiazem HCl) 120 Mg Cap.er.24h 120 Mg PO DAILY Amiodarone HCl 200 Mg Tablet 200 Mg PO BID Proair Hfa (Albuterol Sulfate) 8.5 Gm Hfa.aer.ad 2 Puff IH Q4H PRN Enalapril Maleate 20 Mg Tablet 20 Mg PO DAILY Instructions to Patient/Family Assessment/Instructions Take medications as prescribed. Participate in therapy. Return with worsening shortness of breath, intractable pain, or if you feel like you are getting worse. Follow Up Appt.: next alf rounds Skilled NF Admit to: [facility] Certification (SNF) I certify that SNF services are required to be given on an inpatient basis because of the above named patient's need for chcf care on a continuing basis for the conditions(s) for which he/she was receiving inpatient hospital services prior to his/her transfer to the SNF. Group Home Facility Order: Nursing Services, Negative Stripper-Evaluate & Treat, Physical Therapy-Evaluate & Treat Oxygen Delivery Method: Nasal Cannula Oxygen Flow Rate L/min (Range): 2-6 Discharge Diet: Low Sodium Diet Daily Activity as Tolerated: Yes Resuscitation Status: Full Code Demario To Nov 27, 2021 12:32 Discharge Physical Exam General: Alert, No Acute Distress HEENT: Atraumatic, EOMI, Mucous Memb Moist/Melbeta Lungs: Clear to Auscultation, Normal Air Movement Heart: Regular Rate, No Murmurs Abdomen: Normal Bowel Sounds, Soft, No Tenderness Extremities: Other (swelling, nontender) Neuro: Normal Speech, Other (motor weakness) Psych/Mental Status: Mental Status NL, Other (depressed affect) DEMARIO TO MD Nov 27, 2021 12:37
[2021-11-27] MEDS ORDERED: DILT-27 PO (12:42)
[2021-11-27] MEDS ORDERED: TIOT4MIS2 INH (12:42)
[2021-11-27] MEDS ORDERED: GABA300C PO (12:42)
[2021-11-27] MEDS ORDERED: OXYC18CA PO (12:42)
[2021-11-27] MEDS ORDERED: RT-ALBUINH IH (12:42)
[2021-11-27] MEDS ORDERED: ALPR0.254 PO ×2 (12:42)
[2021-11-27] MEDS ORDERED: DOCU100C37 PO (12:42)
[2021-11-27] MEDS ORDERED: MULT-1136 PO (12:42)
[2021-11-27] MEDS ORDERED: ALB0.5V NEB (12:42)
[2021-11-27] MEDS ORDERED: ENAL20TA16 PO (12:42)
[2021-11-27] MEDS ORDERED: FLUT1BLS9 IN (12:42)
[2021-11-27] MEDS ORDERED: SNN187T PO (12:42)
[2021-11-27] MEDS ORDERED: POTA-160 PO (12:42)
[2021-11-27] MEDS ORDERED: FURO40TA4 PO (12:42)
[2021-11-27] MEDS ORDERED: AMIO200T65 PO (12:42)
[2021-11-27] MEDS ORDERED: APIX5TAB PO (12:42)
[2021-11-27] MEDS ORDERED: LEVO25TA5 PO (12:42)
[2021-11-27] MEDS ORDERED: POLY17PO6 PO (12:42)
[2021-11-27] MEDS ORDERED: ACHD5005 PO (12:42)
[2021-11-27] MEDS ORDERED: METO5TAB6 PO (12:42)
[2021-11-27] MEDS ORDERED: FURO80TA83 PO (12:42)
[2021-11-27] MEDS ORDERED: MELA3TAB39 PO (12:42)
[2021-11-27 16:00] VITALS: BP 115/56
--- NOTE | 2021-11-27 17:22 | Physician Query Clarification ---
Physician Query-General Query to Physician: The medical record reflects the following clinical scenario: The patient, in the setting of History/Risk factors, Pneumonia, Advanced age Clinical Findings Admission VS/LABS: Vital Signs: HR 79, RR 18, BP 154/83, SpO2 92% sat on room air T 36.0, WBC 13.5, Did have temp spikes up to T Max of 38.1, positive BC with Gram Pos Rods, Treatment in ER: Lactated Ringer's 1 L, cefepime IV, >5L IV fluids in first 48 hours, Added Azithrymycin IV Question: Sepsis was documented on the H and P and several progress notes. Do you agree with the impression of Sepsis, present on admission per Dr. Sukhdev Wilkins? If you agree, please document in Progress Notes or Discharge Summary. 1. Yes; will document Sepsis, present on admission in the Progress Notes 2. No; will continue current documentation in the Progress Notes 3. Other; will document explanation of clinical findings 4. Clinically undetermined; no explanation for clinical findings Please clarify and document your clinical opinion in the Progress Notes and Discharge Summary including the definitive and/or presumptive diagnosis, (suspected or probable), related to the above clinical findings. Please include clinical findings supporting your diagnosis. In responding to this query, please exercise your independent professional judgment. The purpose of this communication is to more accurately reflect the complexity of your patient�s condition. The fact that a question is asked does not imply that any particular answer is desired or expected. Please remember a lack of response to the above will prompt a phone page by CDI/coding staff Thank you for timely response to this clarification. Shobha Quiles MSN, RN Clinical Cider Press Operator [phone] [email or web address] PHYSICIAN RESPONSE: Based on the clinical findings in the record, please respond to the query above on this document as an addendum. Physician Response: If you have questions please contact: Order Checker: Ext: Thank you for your time and cooperation. Clinical Cider Press Operator/Order Checker This is a permanent part of the medical record SHOBHA QUILES Nov 27, 2021 17:22
== END 2021-11-27 16:00 | DRG 521 ==
LOC: EDUNIT# 12:03 → ER 12:04 → 4TH 14:34
PROVIDERS: ADMIT Internal Medicine; ATTEND Internal Medicine
PROC: 0SRS0J9 Replacement of Left Hip Joint, Femoral Surface with Synthetic Substitute, Cemented, Open Approach (ICD-10-PCS; principal; 2021-11-18 09:30)
DX: S72.002A Fracture of unspecified part of neck of left femur, initial encounter for closed fracture (principal); J18.9 Pneumonia, unspecified organism; J44.0 Chronic obstructive pulmonary disease with (acute) lower respiratory infection; I50.32 Chronic diastolic (congestive) heart failure; I13.0 Hypertensive heart and chronic kidney disease with heart failure and stage 1 through stage 4 chronic kidney disease, or unspecified chronic kidney disease; D62 Acute posthemorrhagic anemia; N17.9 Acute kidney failure, unspecified; E87.2 Acidosis; Z99.81 Dependence on supplemental oxygen; I48.0 Paroxysmal atrial fibrillation; I25.10 Atherosclerotic heart disease of native coronary artery without angina pectoris; W01.0XXA Fall on same level from slipping, tripping and stumbling without subsequent striking against object, initial encounter; Z79.01 Long term (current) use of anticoagulants; Z79.899 Other long term (current) drug therapy; Z96.653 Presence of artificial knee joint, bilateral; Z20.822 Contact with and (suspected) exposure to COVID-19; M19.90 Unspecified osteoarthritis, unspecified site; G89.29 Other chronic pain; M54.9 Dorsalgia, unspecified; F41.9 Anxiety disorder, unspecified; Z87.891 Personal history of nicotine dependence; Z88.0 Allergy status to penicillin; N18.31 Chronic kidney disease, stage 3a; R60.1 Generalized edema; E87.71 Transfusion associated circulatory overload
CPT/HCPCS: 36415; 51701; 51702; 70450; 71045; 71250; 72125; 72170; 74176; 80048; 80053; 80061; 81000; 83605; 83735; 84145; 85007; 85014; 85018; 85025; 85027; 85610; 85730; 86850; 86900; 86901; 86920; 87040; 87077; 87081; 87636; 94640; 94664; 94760; 96374

== ENCOUNTER 2021-12-20 19:58 | Inpatient (IN) | payer MEDICARE, MEDICAID ==
[~2021-12-20] VITALS: Ht 178 cm; Wt 81.5 kg
[~2021-12-20 19:58] MED LIST changes: +ACHD5005 PO; +ALPR0.254 PO; +DOCU100C37 PO; +GABA300C PO; +LEVO25TA5 PO; +MELA3TAB39 PO; +MULT-1136 PO; +OXYC18CA PO; +POLY17PO6 PO; +SNN187T PO; +TIOT4MIS2 INH
--- NOTE | 2021-12-20 20:06 | ED General ---
General Stated Complaint: HYPOTENSION Source of Information: Patient, Assisted Records History of Present Illness Date Seen by Provider: Dec 20, 2021 Time Seen by Provider: 19:56 Initial Comments PT ARRIVES VIA EMS FROM [facility] PT HAS BEEN THERE SINCE 11/27/21, AFTER BREAKING HIS LEFT HIP. HAD BEEN RESIDING AT [facility] PRIOR TO THAT PT HAS CHRONIC ATRIAL FIBRILLATION AND IS MAINTAINED ON ELIQUIS PT HAD LAB DONE THIS AM AND HGB WAS 7.4 PT HAS BEEN COMPLAINING OF FEELING DIZZY, AND BP WAS 85/44, RH 45 AT [facility] PT HAS COPD AND WEARS O2 AT 2L/NC CONTINUOUSLY WITH O2 SATS 92-94% BP FOR EMS WAS 86/45, HR 44 PT HAS NO COMPLAINTS ON ARRIVAL OTHER THAN CHRONIC SHOULDER PAIN--NO INJURY NO CHEST PAIN NO SHORTNESS OF BREATH NO HEADACHE NO VISION CHANGES NO ABDOMINAL PAIN OR GI COMPLAINTS. PCP: DR. YEPEZ COORDINATOR VOLUNTEER SERVICES: DR. JOSEPH ORTHOPEDIC SURGEON: DR. GARCIA QUESADA Allergies and Home Medications Allergies Coded Allergies: Sulfa (Sulfonamide Antibiotics) (Verified Allergy, Unknown, 10/04/19) Patient Home Medication List Home Medication List Reviewed: Yes ALPRAZolam (ALPRAZolam) 0.25 Mg Tablet, 0.25 MG PO Q8H PRN for ANXIETY Prescribed by: DEMARIO TO on 11/27/21 1243 ALPRAZolam (ALPRAZolam) 0.25 Mg Tablet, 0.25 MG PO DAILY Prescribed by: DEMARIO TO on 11/27/21 1243 Albuterol Sulfate (Proair Hfa) 8.5 Gm Hfa.aer.ad, 2 PUFF IH Q4H PRN for SHORTNESS OF BREATH Prescribed by: DEMARIO TO on 11/27/21 1242 Albuterol Sulfate (Albuterol Sulfate) 2.5 Mg/0.5 Ml Vial.neb, 2.5 MG NEB Q6H PRN for SHORTNESS OF BREATH Prescribed by: DEMARIO TO on 11/27/21 1242 Amiodarone HCl (Amiodarone HCl) 200 Mg Tablet, 200 MG PO BID Prescribed by: DEMARIO TO on 11/27/21 1242 Apixaban (Eliquis) 5 Mg Tablet, 5 MG PO BID Prescribed by: DEMARIO TO on 11/27/21 1242 Diltiazem HCl (Diltiazem 24Hr ER) 120 Mg Cap.er.24h, 120 MG PO DAILY Prescribed by: DEMARIO TO on 11/27/21 124 Docusate Sodium (Docusate Sodium) 100 Mg Capsule, 100 MG PO BID Prescribed by: DEMARIO TO on 11/27/21 124 Enalapril Maleate (Enalapril Maleate) 20 Mg Tablet, 20 MG PO DAILY Prescribed by: DEMARIO OT on 11/27/21 124 Fluticasone Propion/Salmeterol (Wixela 250-50 Inhub) 1 Each Blst.w.dev, 1 PUFF IN BID Prescribed by: DEMARIO TO on 11/27/21 124 Furosemide (Lasix) 80 Mg Tablet, 80 MG PO DAILY Prescribed by: DEMARIO TO on 11/27/21 124 Gabapentin (Neurontin) 300 Mg Capsule, 300 MG PO HS Prescribed by: DEMARIO TO on 11/27/21 124 Hydrocodone/Acetaminophen (Hydrocodone-Acetamin 5-325 mg) 1 Each Tablet, 1-2 EA PO Q6H PRN for PAIN-MODERATE (5-7) Prescribed by: DEMARIO TO on 11/27/21 124 Last Action: Continued Levothyroxine Sodium (Levothyroxine Sodium) 25 Mcg Tablet, 25 MCG PO DAILY Prescribed by: DEMARIO TO on 11/27/21 124 Melatonin (Melatonin) 3 Mg Tablet, 3 MG PO HS Prescribed by: DEMARIO TO on 11/27/21 124 Multivitamin (Multivitamin) 1 Each Tablet, 1 EACH PO DAILY Prescribed by: DEMARIO TO on 11/27/21 124 Oxycodone Myristate (Xtampza ER) 18 Mg Cap.spr.12, 18 MG PO Q12H Prescribed by: DEMARIO TO on 11/27/21 124 Polyethylene Glycol 3350 (Miralax) 17 Gm Powd.pack, 17 GM PO DAILY Prescribed by: DEMARIO TO on 11/27/21 124 Potassium Chloride (Klor-Con 10) 10 Meq Tablet.er, 10 MEQ PO DAILY Prescribed by: DEMARIO TO on 11/27/21 124 Sennosides (Senna Lax) 8.6 Mg Tablet, 8.6 MG PO DAILY PRN for CONSTIPATION-5TH LINE Prescribed by: DEMARIO TO on 11/27/212 Tiotropium [place] (Spiriva Respimat 2.5MCG/ACTUATION) 4 Gm Mist.inhal, 2 PUFF INH DAILY Prescribed by: DEMARIO TO on 11/27/21 1242 Discontinued Medications Furosemide (Furosemide) 40 Mg Tablet, 40 MG PO 1200 Prescribed by: DEMARIO TO on 11/27/21 124 Metolazone (Metolazone) 5 Mg Tablet, 5 MG PO MO,WE,FR Prescribed by: DEMARIO TO on 11/27/21 1242 Review of Systems Review of Systems Constitutional: see HPI, dizziness, weakness EENTM: no symptoms reported Respiratory: no symptoms reported; No short of breath Cardiovascular: see HPI; No chest pain, No edema, No palpitations, No syncope Gastrointestinal: no symptoms reported; No abdominal pain, No diarrhea, No nausea, No vomiting Genitourinary: no symptoms reported Musculoskeletal: see HPI Skin: no symptoms reported Psychiatric/Neurological: No Symptoms Reported; Denies Headache, Denies Numbness, Denies Paresthesia, Denies Tingling Hematologic/Lymphatic: See HPI, Anemia Immunological/Allergic: no symptoms reported Past Zacybmk-Wsyttj-Hzcjcb Hx Patient Social History Tobacco Use?: Yes Substance use?: Yes Substance type: Marijuana Alcohol Use?: Yes Alcohol Frequency: Daily Immunizations Up To Date Tetanus Booster (TDap): Unknown PED Vaccines UTD: No First/Initial COVID19 Vaccinat: UNSURE OF DATE Second COVID19 Vaccination Trung: UNSURE OF DATE. Seasonal Allergies Seasonal Allergies: Yes Past Medical History Surgeries: Yes (left knee replaced x2, right TKR, shoulder sx) Appendectomy, Cardiac, Joint Replacement, Orthopedic, Tonsillectomy Respiratory: Yes (O2 AT 2-3L/NC CONTINOUSLY) Pneumonia, COPD Currently Using CPAP: No Currently Using BIPAP: No Cardiac: Yes (CHF; AAA 4 CM--NO SURGERY; RBBB/LAFB) Aneurysm, Atrial Fibrillation, Chronic Edema/Swelling, Coronary Artery Disease, High Cholesterol, Hypertension, Palpitations, Valvular Heart Disease Neurological: Yes (DIZZINESS) Reproductive Disorders: No Genitourinary: Yes (STAGE 4 RENAL FAILURE, NO DIALYSIS) Renal Failure Gastrointestinal: No Musculoskeletal: Yes (BILATERAL KNEE SURGERIES, RIGHT SHOULDER SURGERIES;CHRONIC PAIN ) Degenerate Disk Disease, Arthritis, Chronic Back Pain, Fractures Endocrine: Yes Hypothyroidsim HEENT: Yes Dysphagia Cancer: No Psychosocial: Yes (BEHAVIORAL ISSUES--SEXUALLY INAPPROPRIATE BEHAVIORS; POLYSUBSTANCE ABUSE) Anxiety Integumentary: No Blood Disorders: Yes (ANEMIA POST OP) Adverse Reaction/Blood Tranf: No Family Medical History Asbestosis FH: CABG (coronary artery bypass surgery) 19 FATHER FH: breast cancer 19 MOTHER FH: uterine cancer 19 MOTHER Hypertension 19 FATHER Heart Disease, Cancer, Hypertension SOCIAL HISTORY: -DRINKS AT LEAST A 6 PACK A DAY -SMOKES MARIJUANA DAILY SINCE THE S -SMOKES 1 PPD SINCE AGE 17 PAST SURGICAL HISTORY: -KNEE REPLACEMENTS X 3--2 ON LEFT, 1 ON RIGHT -RIGHT SHOULDER SURGERY X 2 -TONSILLECTOMY -APPENDECTOMY -LOOP RECORDER -CARDIAC CATH 10/04/19--MODERATE DISEASE IN LAD, NO INTERVENTION -LEFT HIP FRACTURE/REPLACEMENT 10/[address] QUESADA. ADDITIONAL PMH: Abdominal aortic aneurysm measuring 4 cm, seen on abd CT of 11/15/21 Coronary artery disease, - History of cardiac catheterization done in September [address] Molina showing mild to moderate disease in the LAD, FFR was done and it was nonobstructive disease. 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 Joseph showing normal LV size, EF 50 to 55%, dilated left atrium, calcified mitral valve with mild mitral regurgitation, mild aortic regurgitation, moderate tricuspid regurgitation, severe pulmonary hypertension with PA pressure of 60 to 65 mmHg. Paroxysmal atrial fibrillation with sinus node dysfunction - ILR implanted on November 03, 2019, no significant episode of atrial fibrillation were detected - followed by Dr. Joseph - Intolerant to BB d/t bradycardia Pulmonary HTN - PASP 60-65 mmhg per echocardiogram of August [address] Joseph LONG HISTORY OF NON-COMPLIANCE IN ALL ASPECTS OF CARE Physical Exam Vital Signs Vital Signs - First Documented 12/20/21 19:58 Temp 36.4 Pulse 47 Resp 12 B/P (MAP) 109/59 (76) Pulse Ox 95 O2 Delivery Nasal Cannula O2 Flow Rate 2.00 Capillary Refill : Height, Weight, BMI Height: 5'9.00" Weight: 215lbs. 0.0oz. 97.702943nl; 27.03 BMI Method:Stated General Appearance: No Apparent Distress, WD/WN, Other (DOES NOT APPEAR ILL OR TO BE IN ANY DISCOMFORT OR DISTRESS) HEENT: PERRL/EOMI, Pale Conjunctivae (L), Pale Conjunctivae (R) Neck: Normal Inspection Respiratory: Normal Breath Sounds, No Accessory Muscle Use, No Respiratory Distress Cardiovascular: No JVD, No Murmur, Normal Peripheral Pulses, Irregularly Irregular Gastrointestinal: No Pulsatile Mass, Non Tender, Soft Extremity: Normal Capillary Refill, No Pedal Edema, Other (BOTH FEET IN FOAM HEEL PROTECTORS) Neurologic/Psychiatric: Alert, Oriented x3, No Motor/Sensory Deficits, Normal Mood/Affect, 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 Norm as Tested Skin: Normal Color, Warm/Dry Progress/Results/Core Measures Suspected Sepsis SIRS Temperature: Pulse: Respiratory Rate: Laboratory Tests 12/20/21 20:00: White Blood Count 5.9 Blood Pressure / Mean: Laboratory Tests 12/20/21 20:00: Creatinine 1.72H, INR Comment 1.5H, Platelet Count 181, Total Bilirubin 0.3 Results/Orders Lab Results Laboratory Tests Test 12/20/21 20:00 12/20/21 20:20 Range/Units White Blood Count 5.9 4.3-11.0 10^3/uL Red Blood Count 3.01 L 4.30-5.52 10^6/uL Hemoglobin 8.1 L 13.3-17.7 g/dL Hematocrit 25 L 40-54 % Mean Corpuscular Volume 82 80-99 fL Mean Corpuscular Hemoglobin 27 25-34 pg Mean Corpuscular Hemoglobin Concent 33 32-36 g/dL Red Cell Distribution Width 16.5 H 10.0-14.5 % Platelet Count 181 130-400 10^3/uL Mean Platelet Volume 10.4 9.0-12.2 fL Immature Granulocyte % (Auto) 0 % Neutrophils (%) (Auto) 71 42-75 % Lymphocytes (%) (Auto) 17 12-44 % Monocytes (%) (Auto) 8 0-12 % Eosinophils (%) (Auto) 3 0-10 % Basophils (%) (Auto) 1 0-10 % Neutrophils # (Auto) 4.2 1.8-7.8 10^3/uL Lymphocytes # (Auto) 1.0 1.0-4.0 10^3/uL Monocytes # (Auto) 0.5 0.0-1.0 10^3/uL Eosinophils # (Auto) 0.2 0.0-0.3 10^3/uL Basophils # (Auto) 0.0 0.0-0.1 10^3/uL Immature Granulocyte # (Auto) 0.0 0.0-0.1 10^3/uL Prothrombin Time 18.8 H 12.2-14.7 SEC INR Comment 1.5 H 0.8-1.4 Activated Partial Thromboplast Time 47 H 24-35 SEC Sodium Level 123 *L 135-145 MMOL/L Potassium Level 3.7 3.6-5.0 MMOL/L Chloride Level 87 L 98-107 MMOL/L Carbon Dioxide Level 24 21-32 MMOL/L Anion Gap 12 5-14 MMOL/L Blood Urea Nitrogen 70 H 7-18 MG/DL Creatinine 1.72 H 0.60-1.30 MG/DL Estimat Glomerular Filtration Rate 41 BUN/Creatinine Ratio 41 Glucose Level 143 H 70-105 MG/DL Calcium Level 8.1 L 8.5-10.1 MG/DL Corrected Calcium 8.9 8.5-10.1 MG/DL Total Bilirubin 0.3 0.1-1.0 MG/DL Aspartate Amino Transf (AST/SGOT) 24 5-34 U/L Alanine Aminotransferase (ALT/SGPT) 13 0-55 U/L Alkaline Phosphatase 102 40-136 U/L Total Protein 6.2 L 6.4-8.2 GM/DL Albumin 3.0 L 3.2-4.5 GM/DL Urine Color YELLOW Urine Clarity CLEAR Urine pH 7.0 5-9 Urine Specific Helen <=1.005 1.016-1.022 Urine Protein NEGATIVE NEGATIVE Urine Glucose (UA) NEGATIVE NEGATIVE Urine Ketones NEGATIVE NEGATIVE Urine Nitrite NEGATIVE NEGATIVE Urine Bilirubin NEGATIVE NEGATIVE Urine Urobilinogen 0.2 < = 1.0 MG/DL Urine Leukocyte Esterase NEGATIVE NEGATIVE Urine RBC (Auto) NEGATIVE NEGATIVE Urine RBC NONE /HPF Urine WBC NONE /HPF Urine Squamous Epithelial Cells RARE /HPF Urine Crystals NONE /LPF Urine Bacteria NEGATIVE /HPF Urine Casts NONE /LPF Urine Mucus NEGATIVE /LPF Urine Culture Indicated NO My Orders Orders - HIGINIO SHIPLEY DO Ed Iv/Invasive Line Start (12/20/21 20:03) Ekg Tracing (12/20/21 20:03) O2 (12/20/21 20:03) Monitor-Rhythm Ecg Trace Only (12/20/21 20:03) Cbc With Automated Diff (12/20/21 20:03) Comprehensive Metabolic Panel (12/20/21 20:03) Protime With Inr (12/20/21 20:03) Partial Thromboplastin Time (12/20/21 20:03) Ua Culture If Indicated (12/20/21 20:03) Type And Screen (12/20/21 20:03) Ed Iv/Invasive Line Start (12/20/21 20:03) Ns Iv 1000 Ml (Sodium Chloride 0.9%) (12/20/21 20:15) Chest 1 View, Ap/Pa Only (12/20/21 20:03) Vital Signs/I&O 12/20/21 12/20/21 19:58 19:58 Temp 36.4 Pulse 47 Resp 12 B/P (MAP) 109/59 (76) Pulse Ox 95 95 O2 Delivery Nasal Cannula Nasal Cannula O2 Flow Rate 2.00 2.00 Capillary Refill : Progress Note : Progress Note UNEVENTFUL ER STAY GIVEN IV FLUIDS PT HAD NO COMPLAINTS DURING ER STAY ECG Initial ECG Impression Date: Dec 20, 2021 Initial ECG Impression Time: 20:17 Initial ECG Rate: 45 Initial ECG Comparisson: Unchanged Comment BRADYCARDIA, RATE 45--MUCH ARTIFACT, UNABLE TO DETERMINE IF P WAVES ARE PRESENT; RBBB AND LAFB Diagnostic Imaging Comments CXR--PER RADIOLOGIST REPORT AT 2033 FINDINGS: There is only slight left perihilar and medial left basilar partial atelectasis. The lungs have otherwise cleared at follow-up. The heart size has decreased. There is no vascular congestion and bilateral pleural effusions present on prior have resolved. IMPRESSION: There is only slight partial atelectasis on the left, otherwise resolved with resolution of pleural fluid, decreased heart size and resolution of vascular congestion. No findings of edema. Reviewed: Reviewed by Me Departure Communication (Admissions) 2036--SPOKE WITH DR. TO, HOSPITALIST, ACCEPTS PT FOR ADMIT. Impression Primary Impression: Anemia Additional Impressions: ANTICOAGULATION THERAPY Acute kidney injury superimposed on chronic kidney disease Dehydration Hyponatremia S/P LEFT HIP FRACTURE WITH REPLACEMENT Chronic atrial fibrillation CHRONIC BRADYCARDIA COPD without exacerbation Disposition: ADMITTED INPATIENT Condition: Stable Admissions Decision to Admit Reason: Admit from ER (General) Decision to Admit/Date: Dec 20, 2021 Time/Decision to Admit Time: 20:40 Departure-Patient Inst. Referrals: GEM YEPEZ MD (PCP/Family) Primary Care Physician HIGINIO SHIPLEY DO Dec 20, 2021 20:06
[2021-12-20] MEDS ORDERED: NS IV 1000 ML 1,000 ML IV SCH (20:15)
[2021-12-20 20:17] LABS: BASOPHILS % (AUTO) 1 % (0-10); EOSINOPHILS # (AUTO) 0.2 10^3/uL (0.0-0.3); EOSINOPHILS % (AUTO) 3 % (0-10); HEMATOCRIT 25 % (40-54); HEMOGLOBIN 8.1 g/dL (13.3-17.7); LYMPHOCYTES % (AUTO) 17 % (12-44); MEAN CORPUSCULAR HEMOGLOBIN 27 pg (25-34); MEAN CORPUSCULAR HGB CONC 33 g/dL (32-36); MEAN CORPUSCULAR VOLUME 82 fL (80-99); MEAN PLATELET VOLUME 10.4 fL (9.0-12.2); MONOCYTES # (AUTO) 0.5 10^3/uL (0.0-1.0); MONOCYTES % (AUTO) 8 % (0-12); NEUTROPHILS # (AUTO) 4.2 10^3/uL (1.8-7.8); NEUTROPHILS % (AUTO) 71 % (42-75); PLATELET COUNT 181 10^3/uL (130-400); WHITE BLOOD COUNT 5.9 10^3/uL (4.3-11.0)
[2021-12-20 20:26] LABS: POTASSIUM 3.7 MMOL/L (3.6-5.0)
[2021-12-20 20:26] LABS: BILIRUBIN,URINE NEGATIVE (NEGATIVE); CLARITY,URINE CLEAR; COLOR,URINE YELLOW; GLUCOSE, URINE (UA) NEGATIVE (NEGATIVE); KETONES,URINE NEGATIVE (NEGATIVE); LEUKOCYTE ESTERASE ,URINE NEGATIVE (NEGATIVE); NITRITE,URINE NEGATIVE (NEGATIVE); PROTEIN,URINE NEGATIVE (NEGATIVE)
[2021-12-20 20:27] LABS: CALCIUM 8.1 MG/DL (8.5-10.1)
[2021-12-20 20:28] LABS: TOTAL PROTEIN 6.2 GM/DL (6.4-8.2)
--- NOTE | 2021-12-20 20:29 | Diagnostic Imaging Report ---
INDICATION: Hypotension, dizziness. COMPARISON: 11/25/2021. FINDINGS: There is only slight left perihilar and medial left basilar partial atelectasis. The lungs have otherwise cleared at follow-up. The heart size has decreased. There is no vascular congestion and bilateral pleural effusions present on prior have resolved. IMPRESSION: There is only slight partial atelectasis on the left, otherwise resolved with resolution of pleural fluid, decreased heart size and resolution of vascular congestion. No findings of edema. Dictated by: Dictated on workstation # [id number]
[2021-12-20 20:30] LABS: BILIRUBIN,TOTAL 0.3 MG/DL (0.1-1.0)
[2021-12-20 20:31] LABS: INR 1.5 (0.8-1.4); PROTHROMBIN TIME PATIENT 18.8 SEC (12.2-14.7)
[2021-12-20 20:32] LABS: CREATININE SERUM 1.72 MG/DL (0.60-1.30)
[2021-12-20 20:52] LABS: BACTERIA,URINE NEGATIVE /HPF; SQUAMOUS EPITHELIAL CELL,UR RARE /HPF
[2021-12-20] MEDS: NS IV 1000 ML 1,000 ML IV SCH (22:18)
[2021-12-20 22:44] VITALS: BP 115/63
[2021-12-20] MEDS: HYDROcodone/APAP 5 MG/325 MG (LORTAB) TAB PO PRN (23:01)
[2021-12-20 23:41] VITALS: BP 143/64
[2021-12-21] MEDS: NS IV 1000 ML 1,000 ML IV SCH ×3 (02:05→22:01)
[2021-12-21 04:29] VITALS: BP 147/71
[2021-12-21] MEDS: HYDROcodone/APAP 5 MG/325 MG (LORTAB) TAB PO PRN ×3 (04:30→18:07)
[2021-12-21 05:49] LABS: BASOPHILS % (AUTO) 1 % (0-10); EOSINOPHILS # (AUTO) 0.3 10^3/uL (0.0-0.3); EOSINOPHILS % (AUTO) 5 % (0-10); HEMATOCRIT 25 % (40-54); HEMOGLOBIN 8.1 g/dL (13.3-17.7); LYMPHOCYTES % (AUTO) 17 % (12-44); MEAN CORPUSCULAR HEMOGLOBIN 26 pg (25-34); MEAN CORPUSCULAR HGB CONC 32 g/dL (32-36); MEAN CORPUSCULAR VOLUME 82 fL (80-99); MEAN PLATELET VOLUME 10.5 fL (9.0-12.2); MONOCYTES # (AUTO) 0.5 10^3/uL (0.0-1.0); MONOCYTES % (AUTO) 8 % (0-12); NEUTROPHILS # (AUTO) 4.1 10^3/uL (1.8-7.8); NEUTROPHILS % (AUTO) 69 % (42-75); PLATELET COUNT 167 10^3/uL (130-400)
[2021-12-21 06:00] LABS: POTASSIUM 3.4 MMOL/L (3.6-5.0)
[2021-12-21 06:01] LABS: CALCIUM 8.2 MG/DL (8.5-10.1)
[2021-12-21 06:05] LABS: CREATININE SERUM 1.45 MG/DL (0.60-1.30)
[2021-12-21 08:20] VITALS: BP 129/65
[2021-12-21 12:25] VITALS: BP 112/56
[2021-12-21 16:13] VITALS: BP 138/77
[2021-12-21 19:37] VITALS: BP 143/74
--- NOTE | 2021-12-21 19:44 | History & Physical-Hospitalist ---
History of Present Illness HPI/Chief Complaint [place] is a 76 year old male with PMH HTN, AFib, COPD, HFpEF, chronic back pain, recent hip fracture, CKD 3a, anemia, who presented with dizziness and hypotension. He has been residing at [facility] since breaking his hip and having surgery in October. He tells me he has been eating and drinking. He has also been taking his diuretics and urinating frequently. He does not have any swelling. He is not short of breath. He denies cough. He denies chest pain and palpitations. He has not had fevers or chills. He is having back pain. He denies hip pain. Source: patient Exam Limitations: no limitations Date Seen 12/21/21 Time Seen by a Provider: 12:45 Attending Physician Demario To MD PCP Wilfredo Blair MD Referring Physician Date of Admission Dec 20, 2021 at 20:40 Home Medications & Allergies Home Medications Reviewed patient Home Medication Reconciliation performed by pharmacy medication reconciliations gameroom technician and/or nursing. Patients Allergies have been reviewed. Allergies Allergies Coded Allergies Sulfa (Sulfonamide Antibiotics) (Verified Allergy, Unknown, 10/04/19) Past Xtqbgli-Mwyoea-Ifzheg Hx Patient Social History Tobacco Use?: No Smoking Status: Former Smoker Smokeless Tobacco Frequency: Former User Use of E-Cig and/or Vaping dev: No Substance use?: Yes Substance type: Marijuana Substance frequency: Once in a while Alcohol Use?: Yes Alcohol type: Beer Alcohol Frequency: Once in a while Pt feels they are or have been: No Immunizations Up To Date Date of Influenza Vaccine: Aug 30, 2021 First/Initial COVID19 Vaccinat: UNSURE OF DATE Second COVID19 Vaccination Trung: UNSURE OF DATE. Tetanus Booster (TDap): Unknown Hepatitis A: No Hepatitis B: No PED Vaccines UTD: No Date of Pneumonia Vaccine: Aug 30, 2019 Seasonal Allergies Seasonal Allergies: Yes Current Status Advance Directives: No Communicates: Verbally Primary Language: Irish Preferred Spoken Language: Irish Is interpretation needed?: No Implanted or Applied Medical D: Other Past Medical History Surgeries: Appendectomy, Cardiac, Joint Replacement, Orthopedic, Tonsillectomy Pneumonia, COPD Currently Using CPAP: No Currently Using BIPAP: No Aneurysm, Atrial Fibrillation, Chronic Edema/Swelling, Coronary Artery Disease, High Cholesterol, Hypertension, Palpitations, Valvular Heart Disease Renal Failure Degenerate Disk Disease, Arthritis, Chronic Back Pain, Fractures Hypothyroidsim Dysphagia Anxiety Blood Disorders: Yes (ANEMIA POST OP) Adverse Reaction/Blood Tranf: No Family Medical History Asbestosis FH: CABG (coronary artery bypass surgery) 19 FATHER FH: breast cancer 19 MOTHER FH: uterine cancer 19 MOTHER Hypertension 19 FATHER Heart Disease, Cancer, Hypertension SOCIAL HISTORY: -DRINKS AT LEAST A 6 PACK A DAY -SMOKES MARIJUANA DAILY SINCE THE S -SMOKES 1 PPD SINCE AGE 17 PAST SURGICAL HISTORY: -KNEE REPLACEMENTS X 3--2 ON LEFT, 1 ON RIGHT -RIGHT SHOULDER SURGERY X 2 -TONSILLECTOMY -APPENDECTOMY -LOOP RECORDER -CARDIAC CATH 10/04/19--MODERATE DISEASE IN LAD, NO INTERVENTION -LEFT HIP FRACTURE/REPLACEMENT 10/[address] QUESADA. ADDITIONAL PMH: Abdominal aortic aneurysm measuring 4 cm, seen on abd CT of 11/15/21 Coronary artery disease, - History of cardiac catheterization done in September [address] Molina showing mild to moderate disease in the LAD, FFR was done and it was nonobstructive disease. 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 Joseph showing normal LV size, EF 50 to 55%, dilated left atrium, calcified mitral valve with mild mitral regurgitation, mild aortic regurgitation, moderate tricuspid regurgitation, severe pulmonary hypertension with PA pressure of 60 to 65 mmHg. Paroxysmal atrial fibrillation with sinus node dysfunction - ILR implanted on November 03, 2019, no significant episode of atrial fibrillation were detected - followed by Dr. Joseph - Intolerant to BB d/t bradycardia Pulmonary HTN - PASP 60-65 mmhg per echocardiogram of August [address] Joseph LONG HISTORY OF NON-COMPLIANCE IN ALL ASPECTS OF CARE Review of Systems Constitutional: dizziness EENTM: no symptoms reported Respiratory: no symptoms reported Cardiovascular: no symptoms reported Gastrointestinal: no symptoms reported Genitourinary: no symptoms reported Musculoskeletal: back pain Skin: no symptoms reported Psychiatric/Neurological: No Symptoms Reported Physical Exam Physical Exam Vital Signs Vital Signs - First Documented 12/20/21 19:58 Temp 36.4 Pulse 47 Resp 12 B/P (MAP) 109/59 (76) Pulse Ox 95 O2 Delivery Nasal Cannula O2 Flow Rate 2.00 Capillary Refill : Less Than 3 Seconds Height, Weight, BMI Height: 5'9.00" Weight: 215lbs. 0.0oz. 97.494870wh; 25.72 BMI Method:Stated General Appearance: No Apparent Distress, Chronically ill HEENT: PERRL/EOMI, Pharynx Normal Neck: Normal Inspection, Supple Respiratory: Lungs Clear, Normal Breath Sounds, No Respiratory Distress Cardiovascular: Regular Rate, Rhythm, No Edema, No Murmur Gastrointestinal: Normal Bowel Sounds, Non Tender, Soft Extremity: Normal Inspection, No Pedal Edema Neurologic/Psychiatric: Alert, Depressed Affect Skin: Normal Color, Warm/Dry Results Results/Procedures Labs Laboratory Tests 12/20/21 20:00 12/21/21 05:30 Patient resulted labs reviewed. Imaging: Reviewed Imaging Report Assessment/Plan Admission Diagnosis Acute kidney injury superimposed on chronic kidney disease Admission Status: Inpatient Order (span 2 midnights) Reason for Inpatient Admission: Dehydration Assessment and Plan SARA on CKD 3a Dehydration HFpEF Hyponatremia IV fluids Hold diuretics Kidney function and sodium improving Anemia Iron defieicency Hgb stable Consider iron infusion HTN COPD AFib Back pain Med rec pending DVT prophylaxis: already receiving therapeutic anticoagulation Diagnosis/Problems Diagnosis/Problems (1) Acute kidney injury superimposed on chronic kidney disease Status: Acute (2) Hyponatremia Status: Acute (3) Dehydration Status: Acute (4) Anemia Status: Acute Qualifiers: Anemia type: iron deficiency DEMARIO TO MD Dec 21, 2021 19:43
[2021-12-21] MEDS: APIXABAN 5 MG (ELIQUIS) TABLET PO SCH (21:21)
[2021-12-21 23:26] VITALS: BP 142/70
[2021-12-22] MEDS: HYDROcodone/APAP 5 MG/325 MG (LORTAB) TAB PO PRN ×2 (01:45→07:57)
[2021-12-22 03:07] VITALS: BP 118/67
[2021-12-22 07:36] VITALS: BP 127/66
[2021-12-22] MEDS: APIXABAN 5 MG (ELIQUIS) TABLET PO SCH (07:57)
[2021-12-22] MEDS: NS IV 1000 ML 1,000 ML IV SCH (08:00)
[2021-12-22 10:13] LABS: POTASSIUM 3.5 MMOL/L (3.6-5.0)
[2021-12-22 10:14] LABS: CALCIUM 8.4 MG/DL (8.5-10.1)
[2021-12-22 10:19] LABS: CREATININE SERUM 1.29 MG/DL (0.60-1.30)
[2021-12-22 11:40] VITALS: BP 133/64
--- NOTE | 2021-12-22 13:06 | Discharge Inst-Skilled Nursing ---
Discharge Inst-Skilled NF Reconcile Patient Problems Problems Reviewed?: Yes Consult/Follow Up/Orders Follow Up Appt.: Dr. Blair in about one week Skilled NF Admit to: [facility] Certification (SNF) I certify that SNF services are required to be given on an inpatient basis because of the above named patient's need for fpc care on a continuing basis for the conditions(s) for which he/she was receiving inpatient hospital services prior to his/her transfer to the SNF. Senior Care Facility Order: Nursing Services, Retreader-Evaluate & Treat, Physical Therapy-Evaluate & Treat Oxygen Delivery Method: Nasal Cannula Oxygen Flow Rate L/min (Range): 2 Discharge Diet: Low Sodium Diet Daily Activity as Tolerated: Yes Resuscitation Status: Full Code New & Resume Previous Orders Genia To Dec 22, 2021 13:05 GENIA TO MD Dec 22, 2021 13:06
[2021-12-22 14:10] VITALS: BP 133/64
--- NOTE | 2021-12-22 22:48 | Discharge Summary ---
Discharge Summary Hospital Course Problems/Dx: (1) Acute kidney injury superimposed on chronic kidney disease Status: Acute (2) Hyponatremia Status: Acute (3) Dehydration Status: Acute (4) Anemia Status: Acute Qualifiers: Hospital Course Date of Admission: Dec 20, 2021 at 20:40 Admission Diagnosis : SARA on CKD Family Physician/Provider: Wilfredo Blair MD Date of Discharge: 12/22/21 Discharge Diagnosis: SARA on CKD Hospital Course: [place] is a 76 year old male who was recently admitted with hip fracture and presented with dehydration. He has been at [facility]. He has been on diuretics and became dehydrated. He had low blood pressure on arrival. He responded well to IV fluids. His diuretic regimen was decreased. His second dose of Lasix and his Metolazone were discontinued. He was continued on once daily Lasix. He should have repeat labs done next week. He should follow up with his PCP in about a week. He was discahrged back to [facility] in stable condition. Labs and Pending Lab Test: Laboratory Tests 12/22/21 09:48: Sodium Level 132L, Potassium Level 3.5L, Chloride Level 98, Carbon Dioxide Level 21, Anion Gap 13, Blood Urea Nitrogen 46H, Creatinine 1.29, Estimat Glomerular Filtration Rate 58, BUN/Creatinine Ratio 36, Glucose Level 103, Calcium Level 8.4L Home Meds Active Xtampza ER (Oxycodone Myristate) 18 Mg Cap.spr.12 18 Mg PO Q12H 7 Days Spiriva Respimat 2.5MCG/ACTUATION (Tiotropium [place]) 4 Gm Mist.inhal 2 Puff INH DAILY 30 Days Senna Lax (Sennosides) 8.6 Mg Tablet 8.6 Mg PO DAILY PRN 30 Days Multivitamin 1 Each Tablet 1 Each PO DAILY 30 Days Melatonin 3 Mg Tablet 3 Mg PO HS 30 Days Levothyroxine Sodium 25 Mcg Tablet 25 Mcg PO DAILY 30 Days Hydrocodone-Acetamin 5-325 mg (Hydrocodone/Acetaminophen) 1 Each Tablet 1-2 Ea PO Q6H PRN 7 Days Miralax (Polyethylene Glycol 3350) 17 Gm Powd.pack 17 Gm PO DAILY 30 Days Neurontin (Gabapentin) 300 Mg Capsule 300 Mg PO HS 30 Days Docusate Sodium 100 Mg Capsule 100 Mg PO BID 30 Days ALPRAZolam 0.25 Mg Tablet 0.25 Mg PO DAILY 30 Days ALPRAZolam 0.25 Mg Tablet 0.25 Mg PO Q8H PRN 7 Days Klor-Con 10 (Potassium Chloride) 10 Meq Tablet.er 10 Meq PO DAILY 30 Days Wixela 250-50 Inhub (Fluticasone Propion/Salmeterol) 1 Each Blst.w.dev 1 Puff IN BID 30 Days Lasix (Furosemide) 80 Mg Tablet 80 Mg PO DAILY 30 Days Albuterol Sulfate 2.5 Mg/0.5 Ml Vial.neb 2.5 Mg NEB Q6H PRN 30 Days Eliquis (Apixaban) 5 Mg Tablet 5 Mg PO BID 30 Days Diltiazem 24Hr ER (Diltiazem HCl) 120 Mg Cap.er.24h 120 Mg PO DAILY 30 Days Amiodarone HCl 200 Mg Tablet 200 Mg PO BID 30 Days Proair Hfa (Albuterol Sulfate) 8.5 Gm Hfa.aer.ad 2 Puff IH Q4H PRN 30 Days Enalapril Maleate 20 Mg Tablet 20 Mg PO DAILY 30 Days Assessment/Pt Instructions Take medications as prescribed. Your diuretic medicines have been decreased. Follow up with your PCP. Return with worsening symptoms. Discharge Planning: <30 minutes discharge planning Discharge Instructions Discharge Diet: Low Sodium Diet Activity as Tolerated: Yes Discharge Physical Examination Vital Signs Vital Signs Date Time Temp Pulse Resp B/P (MAP) Pulse Ox O2 Delivery O2 Flow Rate FiO2 12/22/21 14:10 36.6 63 20 133/64 96 Nasal Cannula 1.00 General Appearance: No Apparent Distress, Chronically ill Respiratory: Lungs Clear, Normal Breath Sounds, No Respiratory Distress Cardiovascular: Regular Rate, Rhythm, No Murmur Gastrointestinal: Normal Bowel Sounds, Non Tender, Soft Extremity: Normal Inspection, Non Tender, No Pedal Edema Skin: Normal Color, Warm/Dry Neurologic/Psychiatric: Alert, Normal Mood/Affect Allergies: Coded Allergies: Sulfa (Sulfonamide Antibiotics) (Verified Allergy, Unknown, 10/04/19) Discharge Summary Date of Admission Dec 20, 2021 at 20:40 Date of Discharge Dec 22, 2021 at 14:10 Discharge Date: Dec 22, 2021 Discharge Time: 14:10 Admission Diagnosis Acute kidney injury superimposed on chronic kidney disease Discharge Diagnosis SARA on CKD 3a Dehydration (1) Acute kidney injury superimposed on chronic kidney disease Status: Acute (2) Hyponatremia Status: Acute (3) Dehydration Status: Acute (4) Anemia Status: Acute Qualifiers: DEMARIO TO MD Dec 22, 2021 22:47
== END 2021-12-22 14:10 | DRG 683 ==
LOC: EDUNIT# 19:58 → ER 20:00 → UNDOADMIN 20:40 → 4TH 20:40
PROVIDERS: ADMIT Internal Medicine; ATTEND Internal Medicine
DX: N17.9 Acute kidney failure, unspecified (principal); E87.1 Hypo-osmolality and hyponatremia; I13.0 Hypertensive heart and chronic kidney disease with heart failure and stage 1 through stage 4 chronic kidney disease, or unspecified chronic kidney disease; I45.2 Bifascicular block; E86.0 Dehydration; J44.9 Chronic obstructive pulmonary disease, unspecified; F17.210 Nicotine dependence, cigarettes, uncomplicated; N18.4 Chronic kidney disease, stage 4 (severe); I50.9 Heart failure, unspecified; I49.5 Sick sinus syndrome; I08.3 Combined rheumatic disorders of mitral, aortic and tricuspid valves; I27.20 Pulmonary hypertension, unspecified; Z91.19 Patient's noncompliance with other medical treatment and regimen; D64.9 Anemia, unspecified; I71.4 Abdominal aortic aneurysm, without rupture; I25.10 Atherosclerotic heart disease of native coronary artery without angina pectoris; E78.00 Pure hypercholesterolemia, unspecified; M19.91 Primary osteoarthritis, unspecified site; E03.9 Hypothyroidism, unspecified; R13.10 Dysphagia, unspecified; F41.9 Anxiety disorder, unspecified; Z99.81 Dependence on supplemental oxygen; Z79.01 Long term (current) use of anticoagulants; Z96.653 Presence of artificial knee joint, bilateral; Z87.01 Personal history of pneumonia (recurrent); Z82.49 Family history of ischemic heart disease and other diseases of the circulatory system; Z88.2 Allergy status to sulfonamides; T50.2X5A Adverse effect of carbonic-anhydrase inhibitors, benzothiadiazides and other diuretics, initial encounter
CPT/HCPCS: 36415; 71045; 80048; 80053; 81000; 82728; 83540; 83550; 85025; 85610; 85730; 86850; 86900; 86901; 93005; 93041

== ENCOUNTER → 2022-01-07 | Outpatient (CLI) | payer MEDICARE, MEDICAID ==
--- NOTE | 2022-01-07 12:30 | Diagnostic Imaging Report ---
INDICATION: Status post left hip replacement. COMPARISON: 11/18/2021 FINDINGS: 2 radiographic views of the left hip were obtained. There are expected postsurgical changes of previous left hip hemiarthroplasty. There is appropriate anatomic alignment of the femoral component in relation to the acetabulum. The stem of the femoral component is located centrally in the medullary cavity. There is no periprosthetic fracture. No acute fracture or dislocation is identified. No unexpected radiopaque foreign bodies identified. IMPRESSION: Expected postsurgical changes of previous left hip hemiarthroplasty . No unexpected radiopaque foreign body identified. Dictated by: Dictated on workstation # [id number]
== END ==
LOC: ORTHO 10:01
PROVIDERS: ATTEND Orthopaedic Surgery
DX: Z96.642 Presence of left artificial hip joint (principal)
CPT/HCPCS: 73502

== ENCOUNTER → 2022-01-27 | Outpatient (CLI) | payer MEDICARE, MEDICAID ==
[2022-01-27 12:06] LABS: ABSOLUTE RETIC # 52 10e9/uL (24-90); BASOPHILS # (AUTO) 0.1 10^3/uL (0.0-0.1); BASOPHILS % (AUTO) 1 % (0-10); EOSINOPHILS # (AUTO) 0.7 10^3/uL (0.0-0.3); EOSINOPHILS % (AUTO) 8 % (0-10); HEMATOCRIT 26 % (40-54); HEMOGLOBIN 8.1 g/dL (13.3-17.7); LYMPHOCYTES # (AUTO) 1.1 10^3/uL (1.0-4.0); LYMPHOCYTES % (AUTO) 13 % (12-44); MEAN CORPUSCULAR HEMOGLOBIN 28 pg (25-34); MEAN CORPUSCULAR HGB CONC 31 g/dL (32-36); MEAN CORPUSCULAR VOLUME 90 fL (80-99); MONOCYTES # (AUTO) 0.8 10^3/uL (0.0-1.0); MONOCYTES % (AUTO) 9 % (0-12); NEUTROPHILS # (AUTO) 5.6 10^3/uL (1.8-7.8); NEUTROPHILS % (AUTO) 68 % (42-75); PLATELET COUNT 347 10^3/uL (130-400); RETICULOCYTE % 1.77 % (0.50-2.40); WHITE BLOOD COUNT 8.3 10^3/uL (4.3-11.0)
[2022-01-27 13:00] LABS: ANISOCYTOSIS SLIGHT; EOSINOPHILS % (MANUAL) 8 %; HYPOCHROMASIA SLIGHT; LYMPHOCYTES % (MANUAL) 10 %; MONOCYTES % (MANUAL) 6 %; NEUTROPHILS % (MANUAL) 75 %; PLATELET ESTIMATE ADEQUATE; POIKILOCYTOSIS SLIGHT; REACTIVE LYMPHOCYTES 1 %
[2022-01-27 13:01] LABS: ELLIPT/OVALOCYTES SLIGHT
== END ==
LOC: LAB 11:25
PROVIDERS: ATTEND Internal Medicine
DX: D64.9 Anemia, unspecified (principal)
CPT/HCPCS: 36415; 82607; 82746; 83540; 83550; 85007; 85027; 85045; 85055

== ENCOUNTER 2022-02-03 06:19 | Outpatient (CLI) | payer MEDICARE, MEDICAID ==
[~2022-02-03] VITALS: Ht 175.3 cm; Wt 85.5 kg
[2022-02-03] MEDS ORDERED: ALLO100T PO (14:23)
[2022-02-03] MEDS ORDERED: FURO80TA83 PO ×2 (14:23→14:24)
== END 2022-02-03 15:40 | disposition home or self-care (01) ==
LOC: PREOP 06:19
PROVIDERS: ATTEND Surgery
DX: Z01.818 Encounter for other preprocedural examination (principal)

== ENCOUNTER 2022-02-11 12:46 | Day surgery (SDC) | payer MEDICARE, MEDICAID ==
[~2022-02-11] VITALS: Ht 175.3 cm; Wt 85.5 kg
[~2022-02-11 12:46] MED LIST changes: +ALLO100T PO
[2022-02-11] MEDS ORDERED: LACTATED RINGERS 1,000 ML IV STA (12:47)
[2022-02-11 13:00] VITALS: BP 152/73
[2022-02-11] MEDS ORDERED: HURRICAINE EXT TUBE (BENZOCAINE) XX PRN (13:00)
--- NOTE | 2022-02-11 13:20 | Progress Note-Pre Operative ---
Pre-Operative Progress Note H&P Reviewed The H&P was reviewed, patient examined and no changes noted. Date Seen by Provider: Feb 11, 2022 Time Seen by Provider: 13:20 Date H&P Reviewed: Feb 11, 2022 Time H&P Reviewed: 13:20 Pre-Operative Diagnosis: dysphagia, anemia RUSTAM COSME DO Feb 11, 2022 13:20
[2022-02-11] MEDS ORDERED: PROPOFOL INJECTION 50 ML IV ONE (13:27)
[2022-02-11 13:50] VITALS: BP 127/68
[2022-02-11] MEDS ORDERED: FAMO-119 PO (13:50)
--- NOTE | 2022-02-11 13:51 | Discharge Inst-Simple/Standard ---
Discharge Inst-Standard Discharge Medications New, Converted or Re-Newed RX: Transmitted to Pharmacy Patient Instructions/Follow Up Plan of Care/Instructions/FU: Repeat prep today and plan colonoscopy tomorrow morning. Activity as Tolerated: Yes Discharge Diet: Liquid Diet (nothing to drink after midnight.) RUSTAM COSME DO Feb 11, 2022 13:51
--- NOTE | 2022-02-11 13:53 | Progress Note-Post Operative ---
Post-Operative Progess Note Surgeon (s)/Hydraulic Bull Riveter Operator (s) Surgeon RUSTAM COSME DO Hydraulic Bull Riveter Operator: na Pre-Operative Diagnosis dysphagia, anemia Post-Operative Diagnosis hiatal hernia, reflux esophagitis, poor prep Procedure & Operative Findings Date of Procedure 02/11/22 Procedure Performed/Findings egd c biopsy, flex sig Anesthesia Type per software integrator Estimated Blood Loss Estimated blood loss (mL): none Specimens/Packing Specimens Removed ge RUSTAM COSME DO Feb 11, 2022 13:53
[2022-02-11 13:55] VITALS: BP 146/40
[2022-02-11 14:00] VITALS: BP 149/74
[2022-02-11 14:25] VITALS: BP 145/75
--- NOTE | 2022-02-11 14:26 | Anesthesia-General Post-Op ---
MAC Patient Condition Mental Status/LOC: Same as Preop Cardiovascular: Satisfactory Nausea/Vomiting: Absent Respiratory: Satisfactory Pain: Controlled Complications: Absent Post Op Complications Complications None Follow Up Care/Instructions Patient Instructions None needed. Anesthesiology Discharge Order Discharge Order Patient is doing well, no complaints, stable vital signs, no apparent adverse anesthesia problems. No complications reported per nursing. DWIGHT QUILES CRNA Feb 11, 2022 14:26
--- NOTE | 2022-02-11 15:00 | OPERATIVE REPORT ---
DATE OF SERVICE: 02/11/2022 PREOPERATIVE DIAGNOSES: Dysphagia and anemia. POSTOPERATIVE DIAGNOSES: Hiatal hernia, reflux esophagitis, poor prep. PROCEDURE: EGD with biopsy, flexible sigmoidoscopy. SURGEON: Rustam Romero DO ANESTHESIA: Per DBAS. ESTIMATED BLOOD LOSS: None. COMPLICATIONS: None. INDICATIONS: The patient is a 76-year-old male with dysphagia and anemia. He understands risks and benefits of procedures and consented for further evaluation. Consent was signed in the chart. DESCRIPTION OF PROCEDURE: The patient was taken to the endoscopy suite, placed in left lateral recumbent position. Timeout was performed. Scope was inserted in mouth, down the esophagus, stomach and into the duodenum without difficulty. No polyps, masses or ulcerations within the duodenum. Scope was slowly retracted back into the stomach where it was further insufflated. No polyps, masses or ulcerations. Scope was retracted noting moderate hiatal hernia, no other pathology. Scope was returned to its normal position, slowly withdrawn to distal esophagus. Appearance of some slight reflux esophagitis present. Biopsy was obtained. Scope was slowly retracted back until completely removed. Digital rectal exam was performed. No palpable polyps, masses or ulcerations. Scope was inserted in the rectum encountering a large amount of liquid stool. Continued to be advanced encountering a significant amount of stool up into the sigmoid and descending Significant amount, which lots of irrigation and suction was continued to be used, but due to the continuing amount best to repeat prep and a repeat. Scope was then slowly retracted back until completely removed, noting no pathology visualized. RECOMMENDATIONS: The patient will re-prepped night and plan for colonoscopy tomorrow morning. The patient also started on Pepcid 20 mg b.i.d. Await biopsy results. Further recommendations pending. Job ID: [id number] DocumentID: [id number] Dictated Date: 02/11/2022 13:55:16 Director Home Date: 02/11/2022 14:59:40 Dictated By: RUSTAM ROMERO DO
== END 2022-02-11 14:55 | disposition home or self-care (01) ==
LOC: ENDO 12:46
PROVIDERS: ATTEND Surgery
DX: K21.00 Gastro-esophageal reflux disease with esophagitis, without bleeding (principal); K44.9 Diaphragmatic hernia without obstruction or gangrene; D64.9 Anemia, unspecified

== ENCOUNTER 2022-02-12 07:07 | Day surgery (SDC) | payer MEDICARE, MEDICAID ==
[~2022-02-12] VITALS: Ht 175.3 cm; Wt 85.5 kg
[~2022-02-12 07:07] MED LIST changes: +FAMO-119 PO
[2022-02-12] MEDS ORDERED: LACTATED RINGERS 1,000 ML IV STA (07:17)
[2022-02-12] MEDS ORDERED: LACTATED RINGERS 1,000 ML IV ONE (07:27)
[2022-02-12 07:38] VITALS: BP 143/67
--- NOTE | 2022-02-12 07:46 | Progress Note-Pre Operative ---
Pre-Operative Progress Note H&P Reviewed The H&P was reviewed, patient examined and no changes noted. Date Seen by Provider: Feb 12, 2022 Time Seen by Provider: 07:45 Date H&P Reviewed: Feb 12, 2022 Time H&P Reviewed: 07:45 Pre-Operative Diagnosis: anemia RUSTAM COSME DO Feb 12, 2022 07:46
[2022-02-12] MEDS ORDERED: KETAMINE 50 MG/5 ML SYRINGE ONE (07:49)
[2022-02-12] MEDS ORDERED: PROPOFOL INJECTION 50 ML IV ONE (07:49)
[2022-02-12 08:30] VITALS: BP 118/60
[2022-02-12 08:35] VITALS: BP 118/56
--- NOTE | 2022-02-12 08:36 | Discharge Inst-Simple/Standard ---
Discharge Inst-Standard Patient Instructions/Follow Up Plan of Care/Instructions/FU: 2 weeks Nick Activity as Tolerated: Yes Discharge Diet: Regular Diet RUSTAM COSME DO Feb 12, 2022 08:36
[2022-02-12 08:40] VITALS: BP 122/65
[2022-02-12 09:24] VITALS: BP 155/86
--- NOTE | 2022-02-12 14:12 | Anesthesia-General Post-Op ---
MAC Patient Condition Mental Status/LOC: Same as Preop Cardiovascular: Satisfactory Nausea/Vomiting: Absent Respiratory: Satisfactory Pain: Controlled Complications: Absent Post Op Complications Complications None Follow Up Care/Instructions Patient Instructions None needed. Anesthesiology Discharge Order Discharge Order Patient is doing well, no complaints, stable vital signs, no apparent adverse anesthesia problems. No complications reported per nursing. SANDRA HOFFMAN CRNA Feb 12, 2022 14:12
--- NOTE | 2022-02-12 14:21 | OPERATIVE REPORT ---
DATE OF SERVICE: 02/12/2022 PREOPERATIVE DIAGNOSIS: Anemia. POSTOPERATIVE DIAGNOSIS: Sigmoid colon polyp, AV malformations and sigmoid. PROCEDURE: Colonoscopy with hot biopsy polypectomy. SURGEON: Rustam Romero DO ANESTHESIA: Per DATA INTEGRATION ANALYST. ESTIMATED BLOOD LOSS: None. COMPLICATIONS: None. INDICATIONS: The patient is a 76-year-old male needing colonoscopy for further evaluation of anemia. He understands risks and benefits of procedure and wished to proceed. Consent was signed in the chart. DESCRIPTION OF PROCEDURE: The patient was taken to the endoscopy suite, placed in left lateral recumbent position. Timeout was performed. Digital rectal exam was performed. No palpable polyps, masses or ulcerations. Enlarged prostate. Scope was inserted in the rectum and advanced all the way to cecum with minimal difficulty. Prep was adequate with irrigation and suction. Scope was slowly retracted back. No polyps, masses or ulcerations in the cecum, ascending, transverse and descending colon. In the sigmoid colon, a small AVM present. Scope was then continuously retracted back where a polyp was present, which hot biopsy polypectomy was performed. Scope was then continuously retracted back into the rectum where it was also retroflexed noting no other pathology. Scope was returned to its normal position, slowly withdrawn until completely removed. The patient tolerated the procedure well without any complications, taken to recovery room in stable condition. RECOMMENDATIONS: The patient to follow up with biopsy results in approximately 2 weeks. No active bleeding or evidence of recent bleed. Repeat colonoscopy on as needed basis with benefits versus risks. Job ID: [id number] DocumentID: [id number] Dictated Date: 02/12/2022 08:48:18 Driver Retraining Instructor Date: 02/12/2022 14:21:08 Dictated By: RUSTAM ROMERO DO
== END 2022-02-12 09:35 | disposition home or self-care (01) ==
LOC: ENDO 07:07
PROVIDERS: ATTEND Surgery
DX: K63.5 Polyp of colon (principal); K55.20 Angiodysplasia of colon without hemorrhage; N40.0 Benign prostatic hyperplasia without lower urinary tract symptoms; D64.9 Anemia, unspecified; Z87.891 Personal history of nicotine dependence; Z79.01 Long term (current) use of anticoagulants

== ENCOUNTER 2022-03-20 10:35 | Outpatient (RCR) | payer MEDICARE, MEDICAID ==
[2022-03-20 10:59] VITALS: BP 122/66
[2022-03-20] MEDS ORDERED: FERRIC CARBOXYMALTOSE INJ 750 MG in NS (IVPB) 250 ML IV SCH (11:15)
== END 2022-03-29 | disposition home or self-care (01) ==
LOC: SDC 10:35
PROVIDERS: ATTEND Nurse Practitioner Family
DX: D50.9 Iron deficiency anemia, unspecified (principal)
CPT/HCPCS: 96365

== ENCOUNTER 2022-04-03 09:59 | Outpatient (RCR) | payer MEDICARE, MEDICAID ==
[2022-04-03] MEDS ORDERED: FERRIC CARBOXYMALTOSE INJ 750 MG in NS (IVPB) 250 ML IV SCH (10:30)
[2022-04-03 10:31] VITALS: BP 117/64
[2022-04-03 11:35] VITALS: BP 117/64
== END 2022-04-03 11:20 ==
LOC: SDC 09:59
PROVIDERS: ATTEND Nurse Practitioner Family
DX: D50.9 Iron deficiency anemia, unspecified (principal)
CPT/HCPCS: 96365

== ENCOUNTER → 2022-05-19 | Outpatient (CLI) | payer MEDICARE, MEDICAID | LOC: WOUNDCARE 13:33 | PROVIDERS: ATTEND Family Medicine | DX: L89.623 Pressure ulcer of left heel, stage 3 (principal); A49.9 Bacterial infection, unspecified; N18.4 Chronic kidney disease, stage 4 (severe); D63.1 Anemia in chronic kidney disease; E66.01 Morbid (severe) obesity due to excess calories; Z79.52 Long term (current) use of systemic steroids; M62.81 Muscle weakness (generalized); I70.244 Atherosclerosis of native arteries of left leg with ulceration of heel and midfoot | CPT/HCPCS: 87070; 87205; 97597; A6197; A6212; G0463 ==

== ENCOUNTER → 2022-05-28 | Outpatient (CLI) | payer MEDICARE, MEDICAID | LOC: WOUNDCARE 14:47 | PROVIDERS: ATTEND Family Medicine | DX: L89.623 Pressure ulcer of left heel, stage 3 (principal); A49.9 Bacterial infection, unspecified; N18.4 Chronic kidney disease, stage 4 (severe); D63.1 Anemia in chronic kidney disease; E66.01 Morbid (severe) obesity due to excess calories; M62.81 Muscle weakness (generalized); I70.244 Atherosclerosis of native arteries of left leg with ulceration of heel and midfoot; I96 Gangrene, not elsewhere classified; Z79.52 Long term (current) use of systemic steroids | CPT/HCPCS: 11042; G0463 ==

== ENCOUNTER → 2022-06-04 | Outpatient (CLI) | payer MEDICARE, MEDICAID | LOC: WOUNDCARE 15:16 | PROVIDERS: ATTEND Family Medicine | DX: I96 Gangrene, not elsewhere classified (principal); L89.623 Pressure ulcer of left heel, stage 3; A49.9 Bacterial infection, unspecified; N18.4 Chronic kidney disease, stage 4 (severe); D63.1 Anemia in chronic kidney disease; E66.01 Morbid (severe) obesity due to excess calories; M62.81 Muscle weakness (generalized); I70.244 Atherosclerosis of native arteries of left leg with ulceration of heel and midfoot; Z79.52 Long term (current) use of systemic steroids; Z68.37 Body mass index [BMI] 37.0-37.9, adult | CPT/HCPCS: 11042; G0463 ==

== ENCOUNTER → 2022-06-18 | Outpatient (CLI) | payer MEDICARE, MEDICAID | LOC: WOUNDCARE 14:01 | PROVIDERS: ATTEND Family Medicine | DX: I96 Gangrene, not elsewhere classified (principal); L89.623 Pressure ulcer of left heel, stage 3; A49.9 Bacterial infection, unspecified; N18.4 Chronic kidney disease, stage 4 (severe); D63.1 Anemia in chronic kidney disease; E66.01 Morbid (severe) obesity due to excess calories; I70.244 Atherosclerosis of native arteries of left leg with ulceration of heel and midfoot; Z79.52 Long term (current) use of systemic steroids; Z68.37 Body mass index [BMI] 37.0-37.9, adult | CPT/HCPCS: 11042; G0463 ==

== ENCOUNTER → 2022-06-25 | Outpatient (CLI) | payer MEDICARE, MEDICAID | LOC: WOUNDCARE 14:54 | PROVIDERS: ATTEND Family Medicine | DX: I96 Gangrene, not elsewhere classified (principal); L89.623 Pressure ulcer of left heel, stage 3; N18.4 Chronic kidney disease, stage 4 (severe); D63.1 Anemia in chronic kidney disease; E66.01 Morbid (severe) obesity due to excess calories; I70.244 Atherosclerosis of native arteries of left leg with ulceration of heel and midfoot; M62.81 Muscle weakness (generalized); Z68.37 Body mass index [BMI] 37.0-37.9, adult; Z79.52 Long term (current) use of systemic steroids | CPT/HCPCS: 11042; A6021; A6212; G0463 ==

== ENCOUNTER → 2022-07-02 | Outpatient (CLI) | payer MEDICARE, MEDICAID | LOC: WOUNDCARE 14:58 | PROVIDERS: ATTEND Family Medicine | DX: L89.623 Pressure ulcer of left heel, stage 3 (principal); E11.621 Type 2 diabetes mellitus with foot ulcer; E11.22 Type 2 diabetes mellitus with diabetic chronic kidney disease; N18.4 Chronic kidney disease, stage 4 (severe); D63.1 Anemia in chronic kidney disease; E66.01 Morbid (severe) obesity due to excess calories; Z79.52 Long term (current) use of systemic steroids; R53.1 Weakness; I70.244 Atherosclerosis of native arteries of left leg with ulceration of heel and midfoot; E11.52 Type 2 diabetes mellitus with diabetic peripheral angiopathy with gangrene; I96 Gangrene, not elsewhere classified | CPT/HCPCS: 11042; G0463 ==

== ENCOUNTER → 2022-07-09 | Outpatient (CLI) | payer MEDICARE, MEDICAID | LOC: WOUNDCARE 14:16 | PROVIDERS: ATTEND Family Medicine | DX: L89.623 Pressure ulcer of left heel, stage 3 (principal); N18.4 Chronic kidney disease, stage 4 (severe); E11.22 Type 2 diabetes mellitus with diabetic chronic kidney disease; D63.1 Anemia in chronic kidney disease; E66.01 Morbid (severe) obesity due to excess calories; Z79.52 Long term (current) use of systemic steroids; M62.81 Muscle weakness (generalized); I70.244 Atherosclerosis of native arteries of left leg with ulceration of heel and midfoot; Z68.37 Body mass index [BMI] 37.0-37.9, adult | CPT/HCPCS: 11042; 87070; 87205; A6212; G0463; 87077 ==

== ENCOUNTER → 2022-07-15 | Outpatient (CLI) | payer MEDICARE, MEDICAID | LOC: CARD 14:17 | PROVIDERS: ATTEND Family Medicine | DX: L89.623 Pressure ulcer of left heel, stage 3 (principal); N18.4 Chronic kidney disease, stage 4 (severe); D63.1 Anemia in chronic kidney disease; E66.01 Morbid (severe) obesity due to excess calories; M62.81 Muscle weakness (generalized); I70.244 Atherosclerosis of native arteries of left leg with ulceration of heel and midfoot; Z79.52 Long term (current) use of systemic steroids | CPT/HCPCS: 93005 ==

== ENCOUNTER → 2022-07-15 | Outpatient (CLI) | payer MEDICARE, MEDICAID ==
--- NOTE | 2022-07-15 15:51 | Diagnostic Imaging Report ---
PROCEDURE: MR imaging left lower extremity without contrast. TECHNIQUE: Multiplanar, multisequence non contrast enhanced MR imaging of the left lower extremity was accomplished. INDICATION: Pressure ulcer at the left ankle. COMPARISON: None. FINDINGS: There is a soft tissue ulceration posterior to the calcaneus. There is underlying soft tissue edema which does appear to extend to the bone; however, there is no significant bone marrow edema or T1-weighted marrow replacement. There are marked degenerative changes at the posterior subtalar joint. There are moderate degenerative changes in the midfoot. No acute fracture is seen in the left ankle. There is a small posterior subtalar joint effusion. There is marked calcaneal enthesopathy at the plantar aspect and a small posterior calcaneal enthesophyte. The anterior and posterior syndesmotic ligaments are intact. There appear to be old chronic tears of the anterior talofibular ligament and possibly the calcaneofibular ligament. The posterior talofibular ligament appears intact. The deep fibers of the deltoid ligament appear intact. There is mild thickening of the plantar fascia with no tear seen. The sinus tarsi demonstrates normal fat signal. The Achilles tendon is intact. The peroneal tendons are intact. The flexor tendons appear intact with slightly increased fluid in the tendon sheaths. There is tendinosis of the anterior tibialis tendon with no tear seen. The extensor tendons are otherwise intact. There is marked diffuse superficial soft tissue edema. No definite drainable fluid collection is seen on this noncontrast exam. There is mild diffuse deep soft tissue edema. There is moderate generalized muscular atrophy. IMPRESSION: 1. Soft tissue ulceration posterior to the calcaneus. Edema appears to extend down to the calcaneus but there are no MRI findings of osteomyelitis at this time. 2. Diffuse superficial and deep soft tissue edema about the ankle. No drainable fluid collection is seen. 3. Mild flexor tenosynovitis. Tendinosis of the anterior tibialis tendon. Dictated by: Dictated on workstation # [id number]
== END ==
LOC: RAD 13:59
PROVIDERS: ATTEND Family Medicine
DX: L89.623 Pressure ulcer of left heel, stage 3 (principal); M65.9 Synovitis and tenosynovitis, unspecified

== ENCOUNTER → 2022-07-16 | Outpatient (CLI) | payer MEDICARE, MEDICAID | LOC: WOUNDCARE 14:59 | PROVIDERS: ATTEND Family Medicine | DX: L89.623 Pressure ulcer of left heel, stage 3 (principal); N18.30 Chronic kidney disease, stage 3 unspecified; D63.1 Anemia in chronic kidney disease; E66.01 Morbid (severe) obesity due to excess calories; M62.81 Muscle weakness (generalized); I70.234 Atherosclerosis of native arteries of right leg with ulceration of heel and midfoot; Z79.52 Long term (current) use of systemic steroids; I96 Gangrene, not elsewhere classified | CPT/HCPCS: 11042; G0463 ==

== ENCOUNTER → 2022-07-23 | Outpatient (CLI) | payer MEDICARE, MEDICAID | LOC: WOUNDCARE 14:35 | PROVIDERS: ATTEND Family Medicine | DX: L89.623 Pressure ulcer of left heel, stage 3 (principal); N18.4 Chronic kidney disease, stage 4 (severe); D63.1 Anemia in chronic kidney disease; E66.01 Morbid (severe) obesity due to excess calories; M62.81 Muscle weakness (generalized); I70.244 Atherosclerosis of native arteries of left leg with ulceration of heel and midfoot; B96.5 Pseudomonas (aeruginosa) (mallei) (pseudomallei) as the cause of diseases classified elsewhere; B95.62 Methicillin resistant Staphylococcus aureus infection as the cause of diseases classified elsewhere; I96 Gangrene, not elsewhere classified; Z79.52 Long term (current) use of systemic steroids | CPT/HCPCS: 11042; A6212; G0463 ==

== ENCOUNTER → 2022-07-30 | Outpatient (CLI) | payer MEDICARE, MEDICAID | LOC: WOUNDCARE 14:21 | PROVIDERS: ATTEND Family Medicine | DX: L89.623 Pressure ulcer of left heel, stage 3 (principal); N18.4 Chronic kidney disease, stage 4 (severe); D63.1 Anemia in chronic kidney disease; E66.01 Morbid (severe) obesity due to excess calories; M62.81 Muscle weakness (generalized); I70.244 Atherosclerosis of native arteries of left leg with ulceration of heel and midfoot; B96.5 Pseudomonas (aeruginosa) (mallei) (pseudomallei) as the cause of diseases classified elsewhere; B95.61 Methicillin susceptible Staphylococcus aureus infection as the cause of diseases classified elsewhere; I96 Gangrene, not elsewhere classified; Z79.52 Long term (current) use of systemic steroids | CPT/HCPCS: 11042; A6212; G0463 ==

== ENCOUNTER → 2022-08-06 | Outpatient (CLI) | payer MEDICARE, MEDICAID | LOC: WOUNDCARE 14:33 | PROVIDERS: ATTEND Family Medicine | DX: I96 Gangrene, not elsewhere classified (principal); L89.623 Pressure ulcer of left heel, stage 3; N18.4 Chronic kidney disease, stage 4 (severe); D63.1 Anemia in chronic kidney disease; E66.01 Morbid (severe) obesity due to excess calories; Z79.52 Long term (current) use of systemic steroids; M62.81 Muscle weakness (generalized); I70.244 Atherosclerosis of native arteries of left leg with ulceration of heel and midfoot; Z68.37 Body mass index [BMI] 37.0-37.9, adult | CPT/HCPCS: 11042; A6212; G0463 ==

== ENCOUNTER → 2022-08-13 | Outpatient (CLI) | payer MEDICARE, MEDICAID | LOC: WOUNDCARE 14:35 | PROVIDERS: ATTEND Family Medicine | DX: L89.623 Pressure ulcer of left heel, stage 3 (principal); N18.4 Chronic kidney disease, stage 4 (severe); D63.1 Anemia in chronic kidney disease; E66.01 Morbid (severe) obesity due to excess calories; M62.81 Muscle weakness (generalized); I70.244 Atherosclerosis of native arteries of left leg with ulceration of heel and midfoot; I96 Gangrene, not elsewhere classified; Z79.52 Long term (current) use of systemic steroids | CPT/HCPCS: 11042; A6212; G0463 ==

== ENCOUNTER → 2022-08-20 | Outpatient (CLI) | payer MEDICARE, MEDICAID ==
[2022-08-20 15:21] LABS: BASOPHILS % (AUTO) 1 % (0-10); EOSINOPHILS # (AUTO) 0.1 10^3/uL (0.0-0.3); EOSINOPHILS % (AUTO) 1 % (0-10); HEMATOCRIT 30 % (40-54); HEMOGLOBIN 9.4 g/dL (13.3-17.7); LYMPHOCYTES # (AUTO) 0.6 X 10^3 (1.0-4.0); LYMPHOCYTES % (AUTO) 11 % (12-44); MEAN CORPUSCULAR HEMOGLOBIN 32 pg (25-34); MEAN CORPUSCULAR HGB CONC 31 g/dL (32-36); MEAN CORPUSCULAR VOLUME 103 fL (80-99); MONOCYTES # (AUTO) 0.2 X 10^3 (0.0-1.0); MONOCYTES % (AUTO) 4 % (0-12); NEUTROPHILS # (AUTO) 4.6 X 10^3 (1.8-7.8); NEUTROPHILS % (AUTO) 82 % (42-75); PLATELET COUNT 234 10^3/uL (130-400); WHITE BLOOD COUNT 5.6 10^3/uL (4.3-11.0)
[2022-08-20 15:35] LABS: ERYTHROCYTE SEDIMENTATION RATE 38 MM/HR (0-30)
[2022-08-20 15:54] LABS: CALCIUM 8.8 MG/DL (8.5-10.1); CREATININE SERUM 1.51 MG/DL (0.60-1.30); POTASSIUM 5.3 MMOL/L (3.6-5.0)
== END ==
LOC: WOUNDCARE 14:23
PROVIDERS: ATTEND Family Medicine
DX: I96 Gangrene, not elsewhere classified (principal); L89.623 Pressure ulcer of left heel, stage 3; N18.4 Chronic kidney disease, stage 4 (severe); D63.1 Anemia in chronic kidney disease; E66.01 Morbid (severe) obesity due to excess calories; M62.81 Muscle weakness (generalized); I70.244 Atherosclerosis of native arteries of left leg with ulceration of heel and midfoot; Z79.52 Long term (current) use of systemic steroids; Z68.37 Body mass index [BMI] 37.0-37.9, adult
CPT/HCPCS: 11042; 80048; 82306; 84134; 85025; 85652; 86141; A6212; G0463; 36415

== ENCOUNTER → 2022-08-27 | Outpatient (CLI) | payer MEDICARE, MEDICAID | LOC: WOUNDCARE 14:28 | PROVIDERS: ATTEND Family Medicine | DX: L89.623 Pressure ulcer of left heel, stage 3 (principal); N18.4 Chronic kidney disease, stage 4 (severe); D63.1 Anemia in chronic kidney disease; E66.01 Morbid (severe) obesity due to excess calories; M62.81 Muscle weakness (generalized); I70.244 Atherosclerosis of native arteries of left leg with ulceration of heel and midfoot; I96 Gangrene, not elsewhere classified; Z79.52 Long term (current) use of systemic steroids | CPT/HCPCS: 11042; G0463 ==

== ENCOUNTER → 2022-09-03 | Outpatient (CLI) | payer MEDICARE, MEDICAID | LOC: WOUNDCARE 14:21 | PROVIDERS: ATTEND Family Medicine | DX: I96 Gangrene, not elsewhere classified (principal); L89.623 Pressure ulcer of left heel, stage 3; N18.4 Chronic kidney disease, stage 4 (severe); D63.1 Anemia in chronic kidney disease; E66.01 Morbid (severe) obesity due to excess calories; I70.244 Atherosclerosis of native arteries of left leg with ulceration of heel and midfoot; M62.81 Muscle weakness (generalized); Z68.37 Body mass index [BMI] 37.0-37.9, adult; Z79.52 Long term (current) use of systemic steroids | CPT/HCPCS: 11042; A6212; G0463 ==

== ENCOUNTER → 2022-09-10 | Outpatient (CLI) | payer MEDICARE, MEDICAID | LOC: WOUNDCARE 14:23 | PROVIDERS: ATTEND Family Medicine | DX: I96 Gangrene, not elsewhere classified (principal); L89.623 Pressure ulcer of left heel, stage 3; N18.4 Chronic kidney disease, stage 4 (severe); D63.1 Anemia in chronic kidney disease; E66.01 Morbid (severe) obesity due to excess calories; I70.244 Atherosclerosis of native arteries of left leg with ulceration of heel and midfoot; I89.0 Lymphedema, not elsewhere classified; R53.81 Other malaise; Z68.37 Body mass index [BMI] 37.0-37.9, adult; Z79.52 Long term (current) use of systemic steroids | CPT/HCPCS: 11042; 87070; 87205; A6197; G0463 ==

== ENCOUNTER → 2022-09-17 | Outpatient (CLI) | payer MEDICARE, MEDICAID | LOC: WOUNDCARE 14:34 | PROVIDERS: ATTEND Family Medicine | DX: L89.623 Pressure ulcer of left heel, stage 3 (principal); N18.30 Chronic kidney disease, stage 3 unspecified; D63.1 Anemia in chronic kidney disease; E66.01 Morbid (severe) obesity due to excess calories; Z79.52 Long term (current) use of systemic steroids; R53.1 Weakness; I89.0 Lymphedema, not elsewhere classified; I70.244 Atherosclerosis of native arteries of left leg with ulceration of heel and midfoot; B95.62 Methicillin resistant Staphylococcus aureus infection as the cause of diseases classified elsewhere; I96 Gangrene, not elsewhere classified | CPT/HCPCS: 11042; G0463 ==

== ENCOUNTER → 2022-09-24 | Outpatient (CLI) | payer MEDICARE, MEDICAID | LOC: WOUNDCARE 14:37 | PROVIDERS: ATTEND Family Medicine | DX: L89.623 Pressure ulcer of left heel, stage 3 (principal); I96 Gangrene, not elsewhere classified; N18.4 Chronic kidney disease, stage 4 (severe); D63.1 Anemia in chronic kidney disease; E66.01 Morbid (severe) obesity due to excess calories; M62.81 Muscle weakness (generalized); I70.244 Atherosclerosis of native arteries of left leg with ulceration of heel and midfoot; I89.0 Lymphedema, not elsewhere classified; A49.02 Methicillin resistant Staphylococcus aureus infection, unspecified site; Z68.37 Body mass index [BMI] 37.0-37.9, adult; Z79.52 Long term (current) use of systemic steroids | CPT/HCPCS: 11042; G0463 ==

== ENCOUNTER 2022-10-01 13:17 | Outpatient (RCR) | payer MEDICARE, MEDICAID ==
[2022-10-01] MEDS ORDERED: FERRIC CARBOXYMALTOSE INJ 750 MG in NS (IVPB) 250 ML IV SCH (14:00)
[2022-10-01 14:11] VITALS: BP 140/73
== END 2022-10-08 10:59 | disposition home or self-care (01) ==
LOC: SDC 13:17
PROVIDERS: ATTEND Nurse Practitioner Family
DX: D50.9 Iron deficiency anemia, unspecified (principal)
CPT/HCPCS: 96365

== ENCOUNTER → 2022-10-01 | Outpatient (CLI) | payer MEDICARE, MEDICAID ==
[~2022-10-01] MED LIST changes: +ALBU8.5H6 IH; +ALBU8.5H6 PO; -RT-ALBUINH IH; -RT-ALBUINH PO
== END ==
LOC: WOUNDCARE 14:31
PROVIDERS: ATTEND Family Medicine
DX: L89.623 Pressure ulcer of left heel, stage 3 (principal); N18.4 Chronic kidney disease, stage 4 (severe); D63.1 Anemia in chronic kidney disease; E66.01 Morbid (severe) obesity due to excess calories; R53.1 Weakness; I89.0 Lymphedema, not elsewhere classified; I70.244 Atherosclerosis of native arteries of left leg with ulceration of heel and midfoot
CPT/HCPCS: 11042; G0463

== ENCOUNTER 2022-10-08 09:54 | Outpatient (RCR) | payer MEDICARE, MEDICAID ==
[2022-10-08] MEDS ORDERED: FERRIC CARBOXYMALTOSE INJ 750 MG in NS (IVPB) 250 ML IV SCH (10:15)
[2022-10-08 11:10] VITALS: BP 138/61
== END 2022-10-29 | disposition home or self-care (01) ==
LOC: SDC 09:54
PROVIDERS: ATTEND Nurse Practitioner Family
DX: D50.9 Iron deficiency anemia, unspecified (principal)
CPT/HCPCS: 96365

== ENCOUNTER → 2022-10-08 | Outpatient (CLI) | payer MEDICARE, MEDICAID | LOC: WOUNDCARE 14:15 | PROVIDERS: ATTEND Family Medicine | DX: I96 Gangrene, not elsewhere classified (principal); L89.623 Pressure ulcer of left heel, stage 3; I70.244 Atherosclerosis of native arteries of left leg with ulceration of heel and midfoot; N18.4 Chronic kidney disease, stage 4 (severe); D63.1 Anemia in chronic kidney disease; E66.01 Morbid (severe) obesity due to excess calories; M62.81 Muscle weakness (generalized); I89.0 Lymphedema, not elsewhere classified; Z79.52 Long term (current) use of systemic steroids; Z68.37 Body mass index [BMI] 37.0-37.9, adult | CPT/HCPCS: 11042; G0463 ==

== ENCOUNTER → 2022-10-22 | Outpatient (CLI) | payer MEDICARE, MEDICAID | LOC: WOUNDCARE 14:18 | PROVIDERS: ATTEND Family Medicine | DX: I96 Gangrene, not elsewhere classified (principal); L89.623 Pressure ulcer of left heel, stage 3; I70.244 Atherosclerosis of native arteries of left leg with ulceration of heel and midfoot; N18.4 Chronic kidney disease, stage 4 (severe); D63.1 Anemia in chronic kidney disease; M62.81 Muscle weakness (generalized); I89.0 Lymphedema, not elsewhere classified; E66.01 Morbid (severe) obesity due to excess calories; Z79.52 Long term (current) use of systemic steroids; Z68.37 Body mass index [BMI] 37.0-37.9, adult | CPT/HCPCS: 11042; G0463 ==

== ENCOUNTER → 2022-10-29 | Outpatient (CLI) | payer MEDICARE, MEDICAID | LOC: WOUNDCARE 14:19 | PROVIDERS: ATTEND Family Medicine | DX: I96 Gangrene, not elsewhere classified (principal); L89.623 Pressure ulcer of left heel, stage 3; N18.4 Chronic kidney disease, stage 4 (severe); I70.244 Atherosclerosis of native arteries of left leg with ulceration of heel and midfoot; D63.1 Anemia in chronic kidney disease; E66.01 Morbid (severe) obesity due to excess calories; I89.0 Lymphedema, not elsewhere classified; Z79.52 Long term (current) use of systemic steroids; Z68.37 Body mass index [BMI] 37.0-37.9, adult | CPT/HCPCS: 11042; G0463 ==